=== PATIENT | female | born 1940 | race Caucasian/White ===

== ENCOUNTER 2016-06-20 10:11 | Emergency (ER) | payer OTHER ==
[~2016-06-20] VITALS: Ht 162.6 cm; Wt 79.5 kg
[~2016-06-20 10:11] MED LIST: APIX1TAB3 PO; CHOL100010 PO; DILT120C51 PO; GABA-113 PO; PRT40 PO; TMB100 PO
[2016-06-20 10:16] VITALS: TEMP 36.4; Ht 162.6 cm; Wt 79.5 kg
[2016-06-20 10:50] LABS: BASO % 0.2 %; BASO ABS # 0.02 K/uL (0-0.2); COMPLETE YES; EOS % 0.6 %; HEMATOCRIT 38.3 % (37-47); IG% 0.2 %; LYMPH % 16.7 %; LYMPH ABS # 1.39 K/uL (1.2-3.4); MEAN CELL VOLUME 96.7 fL (80-100); MEAN CORPUSCULAR HEMOGLOBIN 31.1 pg (25-34); MEAN CORPUSCULAR HGB CONC 32.1 g/dl (32-36); MONO % 10.5 %; NEUT % 71.8 %; PLATELET COUNT 266 K/uL (130-400); RED BLOOD COUNT 3.96 M/uL (4.2-5.4)
--- NOTE | 2016-06-20 11:04 | EMERGENCY ROOM VISIT NOTE ---
History First contact with patient: 10:23 Chief Complaint: WOUND INFECTION Stated Complaint: RIGHT LEG-SORE Nursing Triage Summary: Patient ambulatory with use of walker, accompanied by daughter. Patient presents with c/o redness and swelling to [facility]. History of Present Illness The patient is a 76 year old female who presents to the Emergency Room with complaints of right leg pain and swelling. The patient states that she scraped her leg one month ago. She states she saw her family doctor and was started on what she believes was Keflex. She was on the antibiotic for one week but it seemed to worsen. She was seen at [facility] yesterday. She states that they recommended she go to the emergency department. They did attempt to incise and drain the area of swelling on the anterior right lower extremity. She states that she went to the [place] emergency Department but did not want to wait and left. The patient has not had antibiotics for the last 3 days. She denies any fevers. She reports worsening redness, swelling, warmth and tenderness. She rates her discomfort a 0/10 at rest. The patient does take a look was for atrial fibrillation. She denies any pain in her chest or trouble breathing. Review of Systems A 10 system review of systems was completed with positives and pertinent negatives listed in the HPI. Past Medical/Surgical History Medical Problems: (1) Diaphragmatic Hernia (2) Diverticulosis Colon (W/O Ment Of Hemorrhage) (3) Osteoporosis Nos (4) Ovarian Cyst Nec/Nos (5) Spinal Stenosis, Lumbar Reg, W/Out Neurogenic Claudication (6) Tobacco Use Disorder Surgical Problems: (1) Hip Joint Replacement Status Family History Diabetes mellitus Heart disease Hypertension Social History Smoking Status: Never Smoker Alcohol Use: occasionally Marital Status: Housing Status: lives with family Occupation Status: retired Current/Historical Medications Scheduled Amoxicillin & Pot Clavulanate (Augmentin 875-125 mg), 1 TAB PO BID Apixaban (Eliquis), 5 MG PO BID Cholecalciferol (Vitamin D), 2,000 INTER.UNIT PO DAILY Diltiazem Hcl Coated Beads (Cardizem Cd), 120 MG PO DAILY Flecainide Acetate (Flecainide Acetate), 100 MG PO BID Gabapentin (Neurontin), 300 MG PO TID Pantoprazole (Pantoprazole Sodium), 40 MG PO BID Sulfa/Trimethoprim (Bactrim Ds 800MG/160MG), 1 TAB PO BID Allergies Coded Allergies: No Known Allergies (Unverified , 06/20/16) Physical Exam Vital Signs Date Time Temp Pulse Resp B/P Pulse Ox O2 Delivery O2 Flow Rate FiO2 06/20/16 13:05 66 16 127/72 92 06/20/16 11:33 66 16 122/65 92 Room Air 06/20/16 10:16 36.4 75 18 129/75 95 Room Air Physical Exam VITALS: Vitals are noted on the nurse's note and reviewed by myself. Vital signs stable. GENERAL: This is a 76-year-old female, in no acute distress, nondiaphoretic, well-developed well-nourished. SKIN: There is a raised, swollen, tender area to the right anterior lower extremity that measures approximately 3 cm in diameter. There is an area of granulation tissue. There is mild bleeding and serous sanguinous drainage. There is erythema to the right lower extremity that extends from the ankle to the mid tib-fib. There is marked tenderness to palpation. There is no tenting of the skin. Capillary reflex less than 2 seconds. HEAD: Normocephalic atraumatic. EARS: The external ears are normal in appearance. EYES: Pupils equal round and reactive to light and accommodation. Conjunctivae without injection, sclerae without icterus. Extraocular movements intact. NOSE: Patent, turbinates without inflammation or discharge. MOUTH: Mucous membranes moist. Tongue does not deviate. NECK: Supple without nuchal rigidity. No JVD. HEART: Regular rate and rhythm without murmurs gallops or rubs. LUNGS: Clear to auscultation bilaterally without wheezes, rales or rhonchi. No retractions or accessory muscle use. MUSCULOSKELETAL: Area of swelling, erythema, warmth and tenderness as above. There is tenderness to palpation to the calf but no palpable cord. Normal gait. Strength 5/5 throughout. NEURO: Patient was alert and oriented to person place and time. Normal sensation to light and sharp touch. No focal neurological deficits. Medical Decision & Procedures ER Provider Diagnostic Interpretation: Venous Doppler right leg RIGHT VENOUS DOPP LOWER EXT UNILAT CLINICAL HISTORY: right leg pain and swelling Right pain. Edema. TECHNIQUE: Venous Doppler COMPARISON STUDY: None FINDINGS: Normal study IMPRESSION: Normal study RIGHT TIBIA/FIBULA 2 VIEWS ROUTINE CLINICAL HISTORY: right leg pain and swelling Right pain. Edema. COMPARISON: None. DISCUSSION: Operative changes consistent with a prior open reduction internal fixation of the right ankle. Mild to moderate generalized soft tissue edema. No acute bony abnormality. IMPRESSION: Soft tissue edema. No acute bony abnormality. Laboratory Results 06/20/16 10:40 Red Blood Count 3.96, Mean Corpuscular Volume 96.7, Mean Corpuscular Hemoglobin 31.1, Mean Corpuscular Hemoglobin Concent 32.1, Mean Platelet Volume 10.0, Neutrophils (%) (Auto) 71.8, Lymphocytes (%) (Auto) 16.7, Monocytes (%) (Auto) 10.5, Eosinophils (%) (Auto) 0.6, Basophils (%) (Auto) 0.2, Neutrophils # (Auto ) 5.95, Lymphocytes # (Auto) 1.39, Monocytes # (Auto) 0.87, Eosinophils # (Auto ) 0.05, Basophils # (Auto) 0.02 06/20/16 10:40 Test 06/20/16 10:40 White Blood Count 8.30 K/uL (4.8-10.8) Red Blood Count 3.96 M/uL (4.2-5.4) Hemoglobin 12.3 g/dL (12.0-16.0) Hematocrit 38.3 % (37-47) Mean Corpuscular Volume 96.7 fL (80-100) Mean Corpuscular Hemoglobin 31.1 pg (25-34) Mean Corpuscular Hemoglobin Concent 32.1 g/dl (32-36) Platelet Count 266 K/uL (130-400) Mean Platelet Volume 10.0 fL (7.4-10.4) Neutrophils (%) (Auto) 71.8 % Lymphocytes (%) (Auto) 16.7 % Monocytes (%) (Auto) 10.5 % Eosinophils (%) (Auto) 0.6 % Basophils (%) (Auto) 0.2 % Neutrophils # (Auto) 5.95 K/uL (1.4-6.5) Lymphocytes # (Auto) 1.39 K/uL (1.2-3.4) Monocytes # (Auto) 0.87 K/uL (0.11-0.59) Eosinophils # (Auto) 0.05 K/uL (0-0.5) Basophils # (Auto) 0.02 K/uL (0-0.2) RDW Standard Deviation 52.5 fL (36.4-46.3) RDW Coefficient of Variation 14.8 % (11.5-14.5) Immature Granulocyte % (Auto) 0.2 % Immature Granulocyte # (Auto) 0.02 K/uL (0.00-0.02) Anion Gap 7.0 mmol/L (3-11) Est Creatinine Clear Calc Drug Dose 43.7 ml/min Estimated GFR () 56.1 Estimated GFR (Non- 48.4 BUN/Creatinine Ratio 12.0 (10-20) Calcium Level 9.1 mg/dl (8.5-10.1) Total Bilirubin 0.9 mg/dl (0.2-1) Aspartate Amino Transf (AST/SGOT) 11 U/L (15-37) Alanine Aminotransferase (ALT/SGPT) 17 U/L (12-78) Alkaline Phosphatase 79 U/L (45-117) Total Protein 7.3 gm/dl (6.4-8.2) Albumin 3.5 gm/dl (3.4-5.0) Globulin 3.8 gm/dl (2.5-4.0) Albumin/Globulin Ratio 0.9 (0.9-2) Medications Administered Medications (Trade) Dose Ordered Sig/Izaiah Route Start Time Stop Time Status Last Admin Dose Admin Trimethoprim/ Sulfamethoxazole (Septra Ds 800/ 160MG Tab) 1 tab NOW ONCE PO 06/20/16 12:15 06/20/16 12:16 DC 06/20/16 12:52 1 TAB ED Course The patient was seen and examined. Previous visits were reviewed. The patient does not have a fever or leukocytosis. She does not have any significant electrolyte abnormality. Ultrasound was negative for DVT X-ray does not reveal any obvious bony abnormality or obvious osteomyelitis The patient has what appears to be a hematoma to the right anterior lower extremity. There is some granulation tissue. She also has a surrounding cellulitis. I did discuss admission to the hospital for IV antibiotics for failed outpatient management. The patient states that she does not want to stay in the hospital and would like to try to be managed as an outpatient. She had only been on Keflex and did not have good MRSA coverage. The patient will be placed on Bactrim and Augmentin. She should return in 24 hours for a recheck and possible additional IV antibiotics or admission. The patient may eventually need a referral to the wound center. She should return sooner with any fevers or generalized worsening symptoms. The patient was also seen and examined by who agrees with the assessment and treatment plan. Medical Decision The differential diagnosis includes cellulitis, hematoma, DVT, abscess, osteomyelitis, among others Impression Primary Impression: Cellulitis of leg Additional Impressions: Swelling of extremity Hematoma Departure Information Dispostion Home / Self-Care Condition GOOD Prescriptions Sulfa/Trimethoprim (Bactrim Ds 800MG/160MG) Tab 1 TAB PO BID for 10 Days, #20 TAB Prov: Arline Ruiz PA-C 06/20/16 Amoxicillin & Pot Clavulanate (Augmentin 875-125 mg) 1 Tab Tab 1 TAB PO BID for 10 Days, #20 TAB Prov: Arline Ruiz PA-C 06/20/16 Referrals Kacy Nicole MD (PCP) Patient Instructions Cellulitis - [facility], ED Hematoma, [facility] Additional Instructions Bactrim and Augmentin as prescribed until finished Return in 24 hours for a recheck Keep the area clean and dry You may need to see the wound center if this is not improving Problem Qualifiers Primary Impression: Cellulitis of leg Laterality: right Qualified Codes: L03.115 - Cellulitis of right lower limb
--- NOTE | 2016-06-20 11:14 | DIAGNOSTIC IMAGING REPORT ---
RIGHT TIBIA/FIBULA 2 VIEWS ROUTINE CLINICAL HISTORY: right leg pain and swelling Right pain. Edema. COMPARISON: None. DISCUSSION: Operative changes consistent with a prior open reduction internal fixation of the right ankle. Mild to moderate generalized soft tissue edema. No acute bony abnormality. IMPRESSION: Soft tissue edema. No acute bony abnormality. Electronically signed by: Johnson Lee M.D. 06/20/2016 11:13 AM Dictated Date/Time: 06/20/2016 11:12 AM
[2016-06-20 11:20] LABS: CALCIUM 9.1 mg/dl (8.5-10.1); CREATININE 1.1 mg/dl (0.60-1.20); POTASSIUM 3.8 mmol/L (3.5-5.1)
[2016-06-20 11:22] LABS: ALB/GLOB RATIO 0.9 (0.9-2)
--- NOTE | 2016-06-20 11:35 | DIAGNOSTIC IMAGING REPORT ---
Venous Doppler right leg RIGHT VENOUS DOPP LOWER EXT UNILAT CLINICAL HISTORY: right leg pain and swelling Right pain. Edema. TECHNIQUE: Venous Doppler COMPARISON STUDY: None FINDINGS: Normal study IMPRESSION: Normal study Electronically signed by: Johnson Lee M.D. 06/20/2016 11:33 AM Dictated Date/Time: 06/20/2016 11:33 AM
[2016-06-20] MEDS ORDERED: SULFAMETHOXAZOLE/TRIMETHOPRIM DS 800/160MG TAB PO ONE (12:15)
[2016-06-20] MEDS ORDERED: AMOX875T PO (12:21)
[2016-06-20] MEDS ORDERED: SULF800T23 PO (12:21)
[2016-06-20 13:05] VITALS: BP 127/72; PULSE 66; O2SAT 92
--- NOTE | 2016-06-21 09:21 | EMERGENCY ROOM VISIT NOTE ---
ED Visit Note First contact with patient: 10:23 Physician Cask Maker Supervision Note: I interviewed and examined the patient. Discussed with Sona Ruiz PA-C and agree with findings and plan as documented in the note. Any exceptions or clarifications are listed here: None Documented By: Alysa Bangura
[2016-06-21] MEDS ORDERED: FLEC100T21 PO (09:55)
[2016-06-21] MEDS ORDERED: GABA-113 PO (09:55)
[2016-06-21] MEDS ORDERED: APIX1TAB3 PO (09:55)
[2016-06-21] MEDS ORDERED: DILT120C43 PO (09:55)
[2016-06-21] MEDS ORDERED: PANT40TA PO (09:55)
--- NOTE | 2016-06-23 13:55 | Pharmacy Progress Note ---
ED Pharmacist Culture FollowUp Date of Service: Jun 23, 2016. Patient's deep wound cx from R leg wound is growing 3 organisms. She had been seen in the ER on 06/20/16 after the patient's wound infxn worsened despite completing a course of Keflex. She was discharged from the ED w/ new Rx's for Bactrim (as Keflex did not provide MRSA coverage) + Augmentin. The wound culture results were reviewed. Ps aeruginosa is growing and neither Bactrim or Augmentin will cover this organism. Reviewed cx results w/ Dr Hernandez and decision was made to d/c both the Bactrim and Augmentin and place the patient on Levofloxacin 500mg PO Daily x 10 days. I called the patient's home ([phone]) and explained cx results to . Explained the change in abx and that the Bactrim and Augmentin should be stopped. requested Rx be phoned to [facility] Rx was phoned to [facility] [place] ([phone]) Levofloxacin 500mg PO daily x 10 days, stop Augmenting, stop Bactrim, no refills, Dr Hernandez. PATIENT: WARREN GUZMAN LOC: [facility] U # : [id number] AGE/SX: 76/F ROOM: REG : 06/20/[address]: Alysa Bangura, : 1940 BED: DIS : STATUS: DEP ER TLOC: SPEC #: [id number] MARCIE: 06/20/16 STATUS: COMP REQ #: [id number] RECD: 06/20/[address]: Arline Ruiz PA-C SOURCE: ABSCESS ENTR: 06/20/[address] [facility] [address]: Kacy Nicole MD SPDESC: Alysa Constantino M.D. ORDERED: [place] CUL/REAL COMMENTS: Has Specimen Been Obtained/Collected? Y Procedure Result Verified Site GRAM STAIN Final 06/20/16-114 RESULT MANY WBCs SEEN FEW GRAM NEGATIVE BACILLI DEEP WOUND CULTURE Final 06/23/16-0849 Organism 1 STENOTROPHOMONAS MALTOPHILIA QUANITY MANY SENS SENSITIVITY TO FOLLOW +MIXWOUND PLUS LOW COUNTS OF PROBABLE SKIN GALDINO Organism 2 PSEUDOMONAS AERUGINOSA QUANITY MODERATE SENS SENSITIVITY TO FOLLOW Organism 3 SERRATIA MARCESCENS QUANITY MODERATE SENS SENSITIVITY TO FOLLOW FAVIO. MALT0 PSEUD AERG SER EDEN M.I.C. RX M.I.C. RX M.I.C. RX --------- ------ --------- ------ --------- ------ TRIMET/SULFA <=2/38 S <=2/38 S CEFOTAXIME 16 I CEFTAZIDIME 4 S 4 S CEFTRIAXONE <=1 S CEFEPIME 8 S <=4 S IMIPENEM <=1 S <=1 S AZTREONAM 16 I GENTAMICIN <=4 S <=4 S TOBRAMYCIN <=4 S <=4 S AMIKACIN <=16 S <=16 S CIPROFLOXACIN <=1 S <=1 S LEVOFLOXACIN <=2 S <=2 S <=2 S ERTAPENEM <=1 S PIP/TAZO <=16 S <=16 S
--- NOTE | 2016-06-24 17:36 | Pharmacy Progress Note ---
ED Pharmacist Progress Note Date of Service: Jun 24, 2016. Patient called today asking why her antibiotics were changed yesterday. I explained the culture results and that the prior two antibiotics were not effective for eradication of all 3 bacteria whereas the new antibiotic ( Levofloxacin) should be effective in eradicating all three. Patient stated her leg is still swollen but states she has no fever and no chills. Advised patient that she should give the Levofloxacin 2-3 days to work before considering the new antibiotic a failure. Advised patient to seek f/u if no improvement in 2-3 days.
== END 2016-06-20 13:05 | disposition home or self-care (01) ==
LOC: C.EDB 10:14
DX: L03.115 Cellulitis of right lower limb (principal); F17.200 Nicotine dependence, unspecified, uncomplicated; M81.0 Age-related osteoporosis without current pathological fracture; Z96.649 Presence of unspecified artificial hip joint

== ENCOUNTER 2016-06-21 09:24 | Emergency (ER) | payer OTHER ==
[~2016-06-21] VITALS: Ht 162.6 cm; Wt 80.2 kg
[~2016-06-21 09:24] MED LIST changes: +AMOX875T PO; +SULF800T23 PO
[2016-06-21 09:28] VITALS: TEMP 36.7; Ht 162.6 cm; Wt 80.2 kg
--- NOTE | 2016-06-21 09:46 | EMERGENCY ROOM VISIT NOTE ---
ED Visit Note First contact with patient: 09:33 CHIEF COMPLAINT: Wound check HISTORY OF PRESENT ILLNESS: This 76-year-old female patient presents to the emergency department ambulatory for a recheck of right leg cellulitis. The patient has no had complaints. Previous care outlined has been followed without difficulty. The patient described their pain as mild, 3/10, and is located within the wound. REVIEW OF SYSTEMS: A 6 system review of systems was completed with positives and pertinent negatives listed in the HPI. ALLERGIES: No known drug allergies MEDICATIONS: Unchanged from previous PMH: Unchanged from previous visit. PHYSICAL EXAM: Vital Signs reviewed, see Nurse's notes. Patient is afebrile, vital signs stable. GENERAL: This is a 76-year-old female, awake, alert, well appearing, no acute distress SKIN: There is an area of swelling with surrounding cellulitis to the right anterior lower extremity. There is no significant purulent drainage. The erythema has receded from the outlined area. NEURO: No sensory or motor deficits noted. EMERGENCY DEPARTMENT COURSE AND DECISION MAKING: I examined the patient. The patient presented with an isolated wound as above. The patient's cellulitis has improved. She does have an area of swelling with mild fluctuance. Incision and drainage had already been attempted by [place] and there was no purulent drainage. Wound culture reveals gram- negative bacilli. Overall, the patient does seem to have improvement of the erythema compared to yesterday. She should continue the Bactrim and Augmentin. She has a follow-up appointment scheduled with her family doctor this week and should keep that appointment. She may need to see the wound center in follow-up. She should return with any worsening redness, swelling, warmth, fevers. Current/Historical Medications Scheduled Amoxicillin & Pot Clavulanate (Augmentin 875-125 mg), 1 TAB PO BID Apixaban (Eliquis), 5 MG PO BID Diltiazem Hcl Coated Beads (Cartia Xt), 1 CAP PO DAILY Flecainide (Tambocor), 100 MG PO BID Gabapentin (Neurontin), 300 MG PO TID Pantoprazole Sodium (Protonix), 40 MG PO BID Sulfa/Trimethoprim (Bactrim Ds 800MG/160MG), 1 TAB PO BID Allergies Coded Allergies: No Known Allergies (Unverified , 06/20/16) Vital Signs Date Time Temp Pulse Resp B/P Pulse Ox O2 Delivery O2 Flow Rate FiO2 06/21/16 10:44 65 20 135/79 96 06/21/16 09:28 36.7 73 18 137/74 94 Room Air Departure Information Impression Primary Impression: Encounter for wound re-check Dispostion Home / Self-Care Condition GOOD Referrals Kacy Nicole MD (PCP) Patient Instructions Cellulitis - [facility], [facility] Additional Instructions Continue the antibiotics as prescribed until finished. Follow up with your family doctor this week as scheduled. You may need to see the wound center if the wound does not heal well. Return with fevers, worsening pain, swelling or redness
[2016-06-21] MEDS ORDERED: DILT120C43 PO (09:55)
[2016-06-21] MEDS ORDERED: GABA-113 PO (09:55)
[2016-06-21] MEDS ORDERED: FLEC100T21 PO (09:55)
[2016-06-21] MEDS ORDERED: PANT40TA PO (09:55)
[2016-06-21] MEDS ORDERED: APIX1TAB3 PO (09:55)
[2016-06-21 10:44] VITALS: BP 135/79; PULSE 65; O2SAT 96
--- NOTE | 2016-06-21 15:29 | EMERGENCY ROOM VISIT NOTE ---
ED Visit Note First contact with patient: 09:33 I have personally seen and evaluated the patient with the PA. I agree with the diagnosis and management decisions and have been personally involved in the case. Please see Sona Ruiz PA-C's notes for further details of the history, physical and visit.
== END 2016-06-21 10:45 | disposition home or self-care (01) ==
LOC: C.EDB 09:25 → C.EDA 10:45
DX: L03.115 Cellulitis of right lower limb (principal); Z09 Encounter for follow-up examination after completed treatment for conditions other than malignant neoplasm; Z79.899 Other long term (current) drug therapy

== ENCOUNTER → 2017-01-06 | Outpatient (CLI) | payer OTHER ==
[~2017-01-06] MED LIST changes: -AMOX875T PO; -CHOL100010 PO; +DILT120C43 PO; -DILT120C51 PO; +FLEC100T21 PO; +PANT40TA PO; -PRT40 PO; -SULF800T23 PO; -TMB100 PO
--- NOTE | 2017-01-06 15:45 | DIAGNOSTIC IMAGING REPORT ---
CT SCAN OF THE ABDOMEN AND PELVIS WITHOUT IV CONTRAST CLINICAL HISTORY: Right lower quadrant abdominal pain. COMPARISON STUDY: Abdominal CT dated 10/14/2011. TECHNIQUE: CT scan of the abdomen and pelvis is performed from the lung bases to the proximal femora. Images are reviewed in the axial, sagittal, and coronal planes. IV contrast was not administered for this examination as per the referring clinician. Note that the examination was performed in suboptimal fashion without oral and IV contrast. A dose lowering technique was utilized adhering to the principles of ALARA. CT DOSE: 474.22 mGy.cm FINDINGS: Lung bases: The heart is normal in size and without pericardial effusion. The coronary arteries are densely calcified. The lung bases are clear noting bibasilar atelectasis. Liver: The unenhanced liver is normal in size, contour, and attenuation. There is no intrahepatic biliary ductal dilatation. Gallbladder: Unremarkable. Spleen: Normal in size and attenuation. Pancreas: The unenhanced pancreas is mildly atrophic and grossly unremarkable. Adrenal glands: 12 mm bilateral adrenal nodules meet CT for fat-containing adenomas. Kidneys: The unenhanced kidneys are atrophic and without hydronephrosis. There are no renal calculi identified. There is no evidence of contour deforming renal mass lesion. Small parapelvic cysts are suggested on the left. Abdominal vasculature: The abdominal aorta is normal in course and caliber noting moderate atherosclerotic calcification. Stomach and bowel: There is a large hiatal hernia, with the majority the stomach located in the thoracic cavity. The duodenum is normal in configuration. No bowel obstruction is seen. There is moderate sigmoid diverticulosis without CT evidence of acute diverticulitis. The appendix is well-visualized and normal. Peritoneum: There is no intraperitoneal free air or abdominal ascites. Lymphadenopathy: None. Pelvic viscera: Evaluation of the pelvis is degraded by streak artifact from a right hip arthroplasty. The bladder is decompressed and not evaluated. The uterus is surgically absent. There is a 3.8 cm cystic-appearing lesion the right adnexa seen on image #352, likely related to the right ovary. Skeletal structures: The skeletal structures are osteopenic. There is advanced lumbar spondylosis and scoliosis. A right hip arthroplasty is in place. There are healed right pubic ring fractures. Sclerotic change is noted in the sacroiliac joints. No lytic or blastic lesions are seen. IMPRESSION: 1. Suboptimal examination without oral and IV contrast. 2. There are no acute infectious or inflammatory findings in the abdomen or pelvis. 3. Large hiatal hernia. 4. Moderate sigmoid diverticulosis without CT evidence of acute diverticulitis. 5. An approximately 4 cm cystic lesion is again seen in the right adnexa. This is an abnormal finding in a 76-year-old female and appears to have modestly increased in size from 2012. This is pathologically indeterminant and follow-up with a pelvic ultrasound is recommended for further interrogation. 6. Additional findings as above. Electronically signed by: Semaj Luong M.D. 01/06/2017 3:44 PM Dictated Date/Time: 01/06/2017 3:36 PM
== END ==
LOC: C.CTS 15:23
PROVIDERS: ATTEND Physician Assistant
DX: R10.31 Right lower quadrant pain (principal); K44.9 Diaphragmatic hernia without obstruction or gangrene

== ENCOUNTER → 2017-01-13 | Outpatient (CLI) | payer OTHER ==
--- NOTE | 2017-01-13 12:34 | DIAGNOSTIC IMAGING REPORT ---
PELVIC ULTRASOUND, TRANSABDOMINAL AND TRANSVAGINAL HISTORY: Abnormal CT. R10.31 Abdominal pain, RLQ (right lower quadrant)R93.5 Abnormal COMPARISON: Abdomen and pelvis CT 01/06/2017. Pelvic ultrasound 09/22/2011. FINDINGS: Uterus: Surgically absent. Right adnexa: Confirmation of the 4.2 x 2.4 x 3.0 cm cyst. This contains a thin septation. No color-flow or soft tissue abnormality identified. This remains stable. Left adnexa: No abnormality visualized. A left ovary was not identified and may be obscured by overlying bowel. Miscellaneous:No pelvic free fluid. IMPRESSION: 1. Confirmation of the 4.2 x 2.4 x 3.0 cm cyst within the right adnexa/ovary. This is stable dating back to a 09/22/2011 pelvic ultrasound. The long-term stability favors a benign lesion. 2. Hysterectomy. 3. No abnormality within the left adnexa. Of note, a left ovary was not identified and could be obscured by overlying bowel gas. Electronically signed by: Erwin Ha M.D. 01/13/2017 12:33 PM Dictated Date/Time: 01/13/2017 12:27 PM
== END | disposition home or self-care (01) ==
LOC: C.ULTR 10:48
PROVIDERS: ATTEND Physician Assistant
DX: R10.31 Right lower quadrant pain (principal); R93.5 Abnormal findings on diagnostic imaging of other abdominal regions, including retroperitoneum; N83.201 Unspecified ovarian cyst, right side; Z90.710 Acquired absence of both cervix and uterus

== ENCOUNTER → 2017-02-17 | Outpatient (CLI) | payer OTHER ==
--- NOTE | 2017-02-17 15:21 | MAMMOGRAPHY REPORT ---
BILATERAL DIGITAL SCREENING MAMMOGRAM TOMOSYNTHESIS WITH CAD: 02/17/2017 CLINICAL HISTORY: Routine screening. TECHNIQUE: Breast tomosynthesis in addition to standard 2D mammography was performed. Current study was also evaluated with a Computer Aided Detection (CAD) system. COMPARISON: Comparison is made to exams dated: 08/21/2013 mammogram, 07/12/2012 mammogram - [facility], 07/15/2010 mammogram, and 07/12/2009 mammogram - [facility]. BREAST COMPOSITION: There are scattered areas of fibroglandular density in both breasts. FINDINGS: Stable benign calcifications in the right breast. Intramammary lymph nodes in each upper outer quadrant. Mild vascular calcification. No suspicious mass, architectural distortion or cluster of microcalcifications is seen. IMPRESSION: ACR BI-RADS CATEGORY 2: BENIGN There is no mammographic evidence of malignancy. A 1 year screening mammogram is recommended. The pa tient will receive written notification of the results. Approximately 10% of breast cancers are not detected with mammography. A negative mammographic report should not delay biopsy if a clinically suggestive mass is present. Estee Calderon M.D. ay/:02/17/2017 15:01:51 Deli Manager: Nani BARRY(Tony)([place]), [facility] letter sent: Normal 1/2 BI-RADS Code: ACR BI-RADS Category 2: Benign
== END | disposition home or self-care (01) ==
LOC: C.MAMM 14:10
PROVIDERS: ATTEND Obstetrics & Gynecology
DX: Z12.31 Encounter for screening mammogram for malignant neoplasm of breast (principal)

== ENCOUNTER → 2017-03-09 | Outpatient (CLI) | payer OTHER | END | disposition home or self-care (01) | LOC: C.LAB1850 12:45 | PROVIDERS: ATTEND Obstetrics & Gynecology | DX: N83.201 Unspecified ovarian cyst, right side (principal) ==

== ENCOUNTER → 2017-03-16 | Outpatient (CLI) | payer OTHER ==
[2017-03-16 12:05] LABS: BLOOD UREA NITROGEN 17 mg/dl (7-18); CALCIUM 8.8 mg/dl (8.5-10.1); CARBON DIOXIDE 29 mmol/L (21-32); CHLORIDE 105 mmol/L (98-107); CREATININE 0.94 mg/dl (0.60-1.20); GLUCOSE 84 mg/dl (70-99); SODIUM 139 mmol/L (136-145)
== END | disposition home or self-care (01) ==
LOC: C.LABPBG 10:13
PROVIDERS: ATTEND Physician Assistant
DX: Z01.818 Encounter for other preprocedural examination (principal)

== ENCOUNTER → 2017-04-12 | Day surgery (SDC) | payer OTHER ==
[2017-04-07 08:09] VITALS: Ht 162.6 cm; Wt 75.4 kg
--- NOTE | 2017-04-07 08:36 | PAT Medication Instructions ---
Service Date Apr 07, 2017. Current Home Medication List Apixaban (Eliquis), 5 MG PO BID Denosumab (Prolia), 1 DOSE INJ YEARLY Diltiazem Hcl Coated Beads (Cartia Xt), 1 CAP PO QAM Flecainide (Tambocor), 100 MG PO BID Gabapentin (Neurontin), 300 MG PO BID Meloxicam (Meloxicam), 1 TAB PO QAM Multivitamin (Multivitamin), 1 TAB PO QAM Ocuvite Preservision (Ocuvite Preservision), 1 TAB PO BID [Terbinafine Cream], 1 DOSE TOP UD PRN for PRN Medication Instructions For Your Scheduled Surgery Denosumab (Prolia), 1 DOSE INJ YEARLY (continue as directed); - Check with surgeon for instructions: Meloxicam (Meloxicam), 1 TAB PO QAM - Hold 2 days prior to surgery per production pattern maker instructions: Apixaban (Eliquis), 5 MG PO BID - Hold the following medications 24 hours prior to surgery: [Terbinafine Cream], 1 DOSE TOP UD PRN for PRN - Hold the following medications the morning of surgery: Multivitamin (Multivitamin), 1 TAB PO QAM Ocuvite Preservision (Ocuvite Preservision), 1 TAB PO BID - Take the following medications the morning of surgery with a sip of water: Gabapentin (Neurontin), 300 MG PO BID Diltiazem Hcl Coated Beads (Cartia Xt), 1 CAP PO QAM Flecainide (Tambocor), 100 MG PO BID - Take the following medications as scheduled the night before surgery: Ocuvite Preservision (Ocuvite Preservision), 1 TAB PO BID Gabapentin (Neurontin), 300 MG PO BID Flecainide (Tambocor), 100 MG PO BID If you have any questions please call us at [phone] or [phone] or [phone]
[2017-04-07 10:20] LABS: BASO ABS # 0.06 K/uL (0-0.2); EOS % 3.1 %; EOS ABS # 0.18 K/uL (0-0.5); HEMOGLOBIN 13.5 g/dL (12.0-16.0); IG# 0.01 K/uL (0.00-0.02); LYMPH ABS # 1.41 K/uL (1.2-3.4); MEAN CORPUSCULAR HEMOGLOBIN 33.6 pg (25-34); MEAN CORPUSCULAR HGB CONC 32.9 g/dl (32-36); MEAN PLATELET VOLUME 10.1 fL (7.4-10.4); MONO % 9.9 %; MONO ABS # 0.58 K/uL (0.11-0.59); NEUT % 61.8 %; NEUT ABS # 3.63 K/uL (1.4-6.5); PLATELET COUNT 223 K/uL (130-400); RED CELL DISTRIBUTION WIDTH CV 12.8 % (11.5-14.5); RED CELL DISTRIBUTION WIDTH SD 47.1 fL (36.4-46.3); WHITE BLOOD COUNT 5.87 K/uL (4.8-10.8)
[~2017-04-12] VITALS: Ht 162.6 cm; Wt 75.4 kg
[~2017-04-12] MED LIST changes: +ACETAMINOPHEN 325 MG TAB PO PRN; +ACETAMINOPHEN 650 MG SUPP PR PRN; +ATROPINE SULFATE 0.1 MG/ML 5ML SYR IV PRN; +BUPIVACAINE 0.5 % 5 MG/1 ML MPF 30ML VIAL ONE; +DEXAMETHASONE SOD INJ 4 MG/ML VIAL ONE; +DNSIS60 INJ; +EpHEDrine SULFATE 50MG/5ML SYR ONE; +FENTANYL CITRATE INJ 50 MCG/1 ML 2 ML VIAL IV PRN; +FENTANYL CITRATE INJ 50 MCG/1 ML 2 ML VIAL ONE; +GLYCOPYRROLATE INJ 0.2 MG/ML VIAL ONE; +IBUPROFEN 200 MG TAB PO PRN; +IBUPROFEN 600 MG TAB PO PRN; +KETOROLAC TROMETHAMINE 15 MG/ML VIAL IV. PRN; +LABETALOL HCL IV 5 MG/ML 20ML IV PRN; +LACTATED RINGER'S 1000ML 1,000 ML IV SCH; +LACTATED RINGER'S 1000ML 500 ML IV SCH; +LIDOCAINE HCL 2% 2 ML VIAL (20MG/ML) ONE; +MBC75 PO; +MULT-190 PO; +MULT-506 PO; +MoRPHine SULFATE 2 MG/ML CARP IV PRN; +NEOSTIGMINE METHYLSULFATE 5 MG/5 ML SYR ONE; +ONDANSETRON INJ 2 MG/ML 2 ML VIAL IV PRN; +ONDANSETRON INJ 2 MG/ML 2 ML VIAL ONE; +OXYC-57 PO; +OXYCODONE/ACETAMINOPHEN 5-325 TAB PO PRN; -PANT40TA PO; +PROPOFOL IV EMULSION 10 MG/ML 20 ML VIAL IV ONE; +ROCURONIUM BROMIDE 10 MG/ML 5 ML VIAL IV ONE; +TERBINAFINE TOP
[2017-04-12 07:32] VITALS: BP 147/68; PULSE 69; TEMP 36.6; O2SAT 94
--- NOTE | 2017-04-12 09:09 | History & Physical Bridge Note ---
H&P Re-Evaluation Bridge Note: I have examined the patient, reviewed the History & Physical and in the interval since the performance of the History & Physical I have noted the following changes of clinical significance: No changes noted
--- NOTE | 2017-04-12 10:19 | [facility] Post Operative Brief Note ---
Immediate Operative Summary Operative Date Apr 12, 2017. Pre-Operative Diagnosis Abdominal pain, right lower quadrant. Cyst of right ovary. Post-Operative Diagnosis Same as preoperative Procedure(s) Performed Laparascopic Bilateral Salpingo-oopherectomy Surgeon Dr. Kendra Callahan Operator Technician Surgeon(s) Dr. Derrick Wilde Estimated Blood Loss 5mL Findings right ovary enlarged solid and cystic, left tube and ovary normal appearing, no apparent right tube. Fluids (cc crystalloids) 1000cc Specimens Formalin: A. Right Adnexa B. Left Adnexa Drains none Anesthesia gett Complication(s) None Disposition Recovery Room / PACU
--- NOTE | 2017-04-12 10:23 | Discharge Instructions ---
Discharge Instructions Date of Service Apr 12, 2017. Visit Reason for Visit: Rt Lower Quadrant Abdominal Pain, Right Ovarian Cy Discharge Discharge Diagnosis / Problem: s/p removal of both ovaries and tubes Discharge Goals Goal(s): Specific goals Activity Recommendations Activity Limitations: per Instructions/Follow-up section Anesthesia . Post Anesthesia Instructions: If you have had General Anesthesia or IV Sedation: * Do not drive today. * Resume driving when surgeon permits. * Do not make important decisions or sign legal documents today. * Call surgeon for: 1. Temperature elevations greater than 101 degrees F. 2. Uncontrollable pain. 3. Excessive bleeding. 4. Persistent nausea and vomiting. 5. Medication intolerance (nausea, vomiting or rash). * For nausea and vomiting use only clear liquids such as: tea, soda, bouillon until nausea subsides, then gradually increase diet as tolerated. * If you have any concerns or questions, call your surgeon's office. If physician is unavailable and it is an emergency, call 911 or go to the nearest emergency room. . Instructions / Follow-Up Instructions / Follow-Up ACTIVITY RECOMMENDATIONS: * Rest the first 2-3 days. You should be back to your normal activity levels by day 3. * No heavy lifting for 2 weeks. * No intercourse, tampons or douching for 1-2 weeks. * You may shower the next day. * Do not drive anytime that you are taking narcotic pain medicines. RETURN TO SCHOOL/WORK: * May return to school or work after 2-3 days. DIET: Nausea may occur in the immediate post-operative period. If so, take clear liquids such as tea, bouillon, apple juice until all nausea has subsided, then resume usual diet. MEDICATIONS: Resume previous medications unless instructed otherwise by your surgeon. Ibuprofen 200mg 2-3 tablets every 4-6 hours as needed -- OR -- Aleve 2 tablets every 8-12 hours as needed for post-operative discomfort Medications are over the counter. Tylenol may be used if above medications are contraindicated or not preferred. Medication should be taken with food or milk. Do not take on an empty stomach. SPECIAL CARE INSTRUCTIONS: * Check temperature twice daily for one week. report any elevation over 101 degrees. * You may experience some vagina spotting and/or bleeding. This is normal for 1 -2 weeks and should not be heavier than a normal period. If it is unusual in amount, call your physician. * Post-operative discomfort may consist of a sore throat, a "bloated" feeling and pain in the shoulders. these are normal symptoms, which usually only last for 2-3 days. * Remove band-aids tomorrow and shower. There is no need to replace band-aids unless there is drainage or discomfort. FOLLOW UP VISIT: Call your doctor's office for a post-operative 2 week visit if not already scheduled. Diet Recommendations Recommended Home Diet: no limitations, resume previous diet Procedures Procedures Performed: Laparascopic Bilateral Salpingo-oopherectomy Pending Studies Studies pending at discharge: no Medical Emergencies . Who to Call and When: Medical Emergencies: If at any time you feel your situation is an emergency, please call 911 immediately. . Non-Emergent Contact Non-Emergency issues call your: [employer] . . "Provider Documentation" section prepared by Kendra Callahan. . [place] Drug Monitoring Program Search Results: patient reviewed within database, no issues identified
[2017-04-12 11:10] VITALS: BP 143/67; PULSE 55; TEMP 36.5; O2SAT 94
[2017-04-12 11:34] VITALS: BP 148/70; PULSE 54; O2SAT 93
--- NOTE | 2017-04-12 12:05 | Anesthesiology Progress Note ---
Anesthesia Post Op Note Date & Time Apr 12, 2017 at 12:04 Vital Signs Vital Signs Past 12 Hours Date Time Temp Pulse Resp B/P (MAP) Pulse Ox O2 Delivery O2 Flow Rate FiO2 04/12/17 11:34 54 18 148/70 93 Room Air 04/12/17 11:10 36.5 55 18 143/67 94 Nasal Cannula 2 04/12/17 10:55 55 16 127/74 96 Nasal Cannula 3 04/12/17 10:45 74 16 159/72 93 04/12/17 10:35 75 16 159/72 99 Oxymask 3 04/12/17 10:25 36.2 75 18 163/83 99 Oxymask 5 04/12/17 07:32 36.6 69 18 147/68 (94) 94 Room Air Notes Mental Status: alert / awake / arousable, participated in evaluation Pt Amnestic to Procedure: Yes Nausea / Vomiting: adequately controlled Pain: adequately controlled Airway Patency, RR, SpO2: stable & adequate BP & HR: stable & adequate Hydration State: stable & adequate Anesthetic Complications: no major complications apparent
[2017-04-12 12:22] VITALS: BP 168/81; PULSE 78; O2SAT 93
[2017-04-12 12:40] VITALS: BP 132/69; PULSE 88; O2SAT 94
--- NOTE | 2017-04-19 08:21 | OPERATIVE REPORT ---
DATE OF OPERATION: 04/12/2017 PREOPERATIVE DIAGNOSIS: Right lower quadrant abdominal pain and persistent complex cyst of the right ovary. POSTOPERATIVE DIAGNOSIS: Same. PROCEDURE: Laparoscopic bilateral salpingo-oophorectomy. SURGEON: Kendra Callahan MD. LONGWALL HEADGATE OPERATOR: Derrick Wilde MD. ANESTHESIA: General per endotracheal tube. ESTIMATED BLOOD LOSS: 5 mL. FLUIDS: 1000 mL. FINDINGS: Right ovary enlarged with solid and cystic components. Left tube and ovary, normal appearing. No apparent right tube. Uterus surgically absent. COMPLICATIONS: None. DRAINS: None. DISPOSITION: To recovery room in stable condition. DESCRIPTION OF PROCEDURE: The patient was taken to the operating room where she was identified verbally and by bracelet. She was placed in dorsal supine position where general anesthesia was induced without difficulty. Prior to the induction of general anesthesia, her legs were placed in the Yellofin stirrups to make sure that there was comfort. Her arms were carefully prepped and draped and tucked at her sides. Her chest was protected with a pad. The hot header operator was placed. The patient was prepped and draped in normal sterile fashion. Timeout was held identifying correct patient, procedure and positioning. A moistened sponge stick was placed in the vagina and a Loera catheter was placed in the bladder. Gloves were then changed. Attention was then turned to the abdomen where an infraumbilical incision was made with knife. Veress needle was placed through this and the abdomen was insufflated with carbon dioxide gas. A 10 mm optical trocar was placed through this with direct intra-abdominal placement visualized. Then in the right and left lower quadrant two 5 mm trocars were placed. The ovaries were found to be free of any adhesions of the pelvic sidewall, so decision was made to proceed with laparoscopic removal using the Harmonic scalpel. First on the right and then on the left. The infundibulopelvic ligament was identified and found to be free of the ureter from both sides and was taken down with the Harmonic scalpel. A 5 mm camera was then placed in a lower quadrant site. An EndoCatch bag was placed through the infraumbilical incision and the specimens were placed in the bag. The bag was removed through the infraumbilical incision port. The surgical field was inspected and found to be hemostatic and the procedure was thus terminated. The trocars were removed. The gas was released from the abdomen. A deep stitch of 0 Vicryl was placed in the infraumbilical incision and the skin incisions were closed with 4-0 Vicryl. The incisions were infiltrated with 0.5% Marcaine and treated with Dermabond. The sponge stick was removed from the vagina and the Loera catheter was removed. All sponge, lap and needle counts were correct x2. The patient tolerated the procedure well and was taken to recovery room in stable condition. I attest to the content of the Intraoperative Record and any orders documented therein. Any exception s are noted below.
== END | disposition home or self-care (01) ==
LOC: C.ACU 07:03
PROVIDERS: ATTEND Obstetrics & Gynecology
DX: R10.31 Right lower quadrant pain (principal); D27.0 Benign neoplasm of right ovary; I48.91 Unspecified atrial fibrillation; N18.3 Chronic kidney disease, stage 3 (moderate); Z98.890 Other specified postprocedural states; Z90.710 Acquired absence of both cervix and uterus; Z96.641 Presence of right artificial hip joint; Z79.01 Long term (current) use of anticoagulants; Z82.49 Family history of ischemic heart disease and other diseases of the circulatory system; Z83.79 Family history of other diseases of the digestive system; Z84.1 Family history of disorders of kidney and ureter; Z83.6 Family history of other diseases of the respiratory system; Z80.0 Family history of malignant neoplasm of digestive organs; Z83.3 Family history of diabetes mellitus

== ENCOUNTER → 2017-08-24 | Outpatient (CLI) | payer OTHER ==
[~2017-08-24] MED LIST changes: -ACETAMINOPHEN 325 MG TAB PO PRN; -ACETAMINOPHEN 650 MG SUPP PR PRN; -ATROPINE SULFATE 0.1 MG/ML 5ML SYR IV PRN; -BUPIVACAINE 0.5 % 5 MG/1 ML MPF 30ML VIAL ONE; -DEXAMETHASONE SOD INJ 4 MG/ML VIAL ONE; -EpHEDrine SULFATE 50MG/5ML SYR ONE; -FENTANYL CITRATE INJ 50 MCG/1 ML 2 ML VIAL IV PRN; -FENTANYL CITRATE INJ 50 MCG/1 ML 2 ML VIAL ONE; -GLYCOPYRROLATE INJ 0.2 MG/ML VIAL ONE; -IBUPROFEN 200 MG TAB PO PRN; -IBUPROFEN 600 MG TAB PO PRN; -KETOROLAC TROMETHAMINE 15 MG/ML VIAL IV. PRN; -LABETALOL HCL IV 5 MG/ML 20ML IV PRN; -LACTATED RINGER'S 1000ML 1,000 ML IV SCH; -LACTATED RINGER'S 1000ML 500 ML IV SCH; -LIDOCAINE HCL 2% 2 ML VIAL (20MG/ML) ONE; -MoRPHine SULFATE 2 MG/ML CARP IV PRN; -NEOSTIGMINE METHYLSULFATE 5 MG/5 ML SYR ONE; -ONDANSETRON INJ 2 MG/ML 2 ML VIAL IV PRN; -ONDANSETRON INJ 2 MG/ML 2 ML VIAL ONE; -OXYCODONE/ACETAMINOPHEN 5-325 TAB PO PRN; -PROPOFOL IV EMULSION 10 MG/ML 20 ML VIAL IV ONE; -ROCURONIUM BROMIDE 10 MG/ML 5 ML VIAL IV ONE
[2017-08-24 17:08] LABS: HEMATOCRIT 40.4 % (37-47); HEMOGLOBIN 13.4 g/dL (12.0-16.0); MEAN CORPUSCULAR HEMOGLOBIN 33.2 pg (25-34); MEAN CORPUSCULAR HGB CONC 33.2 g/dl (32-36); MEAN PLATELET VOLUME 10.1 fL (7.4-10.4); PLATELET COUNT 215 K/uL (130-400); RED CELL DISTRIBUTION WIDTH CV 13.3 % (11.5-14.5); RED CELL DISTRIBUTION WIDTH SD 48.4 fL (36.4-46.3); WHITE BLOOD COUNT 5.44 K/uL (4.8-10.8)
[2017-08-24 17:11] LABS: BLOOD UREA NITROGEN 18 mg/dl (7-18); CALCIUM 9.3 mg/dl (8.5-10.1); CARBON DIOXIDE 27 mmol/L (21-32); CREATININE 0.87 mg/dl (0.60-1.20); GLUCOSE 90 mg/dl (70-99); POTASSIUM 4.1 mmol/L (3.5-5.1); SODIUM 140 mmol/L (136-145)
== END | disposition home or self-care (01) ==
LOC: C.LABPBG 13:54
PROVIDERS: ATTEND Family Medicine
DX: M81.0 Age-related osteoporosis without current pathological fracture (principal); I48.91 Unspecified atrial fibrillation; N18.3 Chronic kidney disease, stage 3 (moderate)

== ENCOUNTER 2019-01-06 07:48 | Observation (INO) ==
--- NOTE | 2019-01-03 11:28 | Anesthesiology Consultation ---
Date of Service January 03, 2019 Assessment & Plan (1) Encounter for pre-operative examination: Chart Review Chart Review: Pending: Refer to Additional Notes / Consult section and Patient NOT seen in Pre Admission Testing Patient previously on schedule for July 2018 for this same procedure and unsure of why it was delayed. Cardiology at that time stated no preop cardiac testing was needed before surgery although they had an outpatient echo scheduled for August 2018 (after her initial surgery date). Could we get a copy of this most recent echo and see if she had any additional cardiology visits before determining if she is appropriately optimized for this surgery. History Surgery Operation Date: 01/06/19 07:15 Proposed Procedures p Right Thyroid Lobectomy, Possible Bilateral - Preeti Thornton MD Height/Weight Height: 5 ft 2 in Weight: 70.307 kg Allergies Allergy/AdvReac Type Severity Reaction Status Date / Time No Known Allergies Allergy Verified 01/03/19 08:45 Medications Home Medications Medication Instructions Recorded Confirmed Last Taken multivitamin 1 tab PO DAILY 06/30/18 01/03/19 Unknown vitamins A,C,L-sybo-tktmim 1 cap PO QAM 06/30/18 01/03/19 Unknown [PreserVision AREDS] denosumab 60 mg/mL subcutaneous 60 mg SUBCUT UD #1 ml 09/01/18 01/03/19 Unknown syringe diltiazem ER 120 mg capsule,24 120 mg PO QAM #30 cap 09/01/18 01/03/19 Unknown hr,extended release flecainide 100 mg tablet 100 mg PO QAM #30 tab 09/01/18 01/03/19 Unknown tramadol 50 mg tablet 50 mg PO Q6H PRN #30 tab 09/01/18 01/03/19 Unknown apixaban 5 mg tablet 5 mg PO BID #60 tab 12/29/18 01/03/19 Unknown meloxicam 7.5 mg tablet 7.5 mg PO QAM #90 tab 12/29/18 01/03/19 Unknown duloxetine 60 mg PO QAM 01/03/19 01/03/19 Unknown hydroxychloroquine 200 mg PO QAM 01/03/19 01/03/19 Unknown omeprazole 40 mg PO QAM 01/03/19 01/03/19 Unknown Past Medical History Medical History Atrial fibrillation ON ELIQUIS Scoliosis Hypertension Macular degeneration Osteoarthritis Rheumatoid arthritis ON HYDROXYCHLOROQUINE Mitral regurgitation MODERATE Depression Diaphragmatic hernia Lumbar spinal stenosis Vitamin D deficiency Osteoporosis Hearing difficulty GERD without esophagitis Essential hypertriglyceridemia Diverticulosis Disc degeneration, lumbar Cystic thyroid nodule Chronic kidney disease, stage III (moderate) Chronic back pain Anxiety Past Family History Family History Sister Colorectal cancer Father Coronary heart disease Mother Coronary heart disease Myocardial infarction Sister Diabetes Past Surgical History Surgical History H/O bilateral oophorectomy B/L SALPINGOOPHORECTOMY= 04/12/17= GRADE VIEW 2, MAC 3, ETT 7.5 AT [facility] History of adenoidectomy History of cataract surgery RIGHT/LEFT History of hysterectomy (1988) History of open reduction and internal fixation (ORIF) procedure (1993) RIGHT ANKLE History of tonsillectomy History of tooth extraction History of total hip arthroplasty RIGHT Status post arthroscopic partial medial meniscectomy (11/02/17) R knee Social History Smoking Status: Never smoker Do You Dip or Chew Tobacco: No Hx Alcohol Use: Yes Alcohol type: hard liquor alcohol intake frequency: a few times a week Alcohol Intake Frequency Comment: VODKA Hx Substance Use: No substance use type: does not use Testing Laboratory Results Labs 10/20/18: WBC 4.7, Hgb 14.3, hct 42.7, plt 225 Other Testing Testing Electrocardiogram Date: 06/30/18 SR with first degree AVB at 72bpm. Echocardiogram Date: 11/15/14 LVEF 55-60%. Thickened AV/MV. Moderate MR. Mild TR. No significant change compared to 2014 ECHO per report. Stress Test Date: 06/08/13 Type: nuclear (Lexiscan) No significant EKG changes. Normal perdusion pattern without evidence of ischemia. Nondiagnostic stress EKG. LVEF 55%. Cervical Spine Date: 01/23/18 Trace retrolisthesis of C4 on C5. Otherwise normal cervical lordosis. The C7 vertebral body is almost completely visualized except for the inferior endplate. Multilevel intervertebral disc height loss most pronounced from C3-4 through C6- 7. At these levels, disc osteophyte complexes noted. Posterior bony spurring suggested at C4-5 and C5-6. Osteopenia limits evaluation. Allowing for this, no compression deformity or acute appearing subluxation. Lateral masses of C1 articulate normally with C2. Normal appearance of the dens. Normal predental interval. No prevertebral soft tissue swelling.
--- NOTE | 2019-01-05 14:31 | History & Physical Report ---
Date of Service January 05, 2019 Assessment & Plan (1) Right thyroid nodule: Right thyroid lobectomy with frozen section and possible total thyroidectomy History of Present Illness Chief Complaint: Lump right neck Primary Care Provider: Kimber Prater DO 78-year-old lady presented with an enlarging right thyroid mass with needle biopsy being nondiagnostic with family history of thyroid cancer Allergies Allergy/AdvReac Type Severity Reaction Status Date / Time No Known Allergies Allergy Verified 01/03/19 08:45 Home Medications Home Medications Medication Instructions Recorded Confirmed Type multivitamin 1 tab PO DAILY 06/30/18 01/03/19 History vitamins A,C,W-ulie-meoyfc 1 cap PO QAM 06/30/18 01/03/19 History [PreserVision AREDS] denosumab 60 mg/mL subcutaneous 60 mg SUBCUT UD #1 ml 09/01/18 01/03/19 Rx syringe diltiazem ER 120 mg capsule,24 120 mg PO QAM #30 cap 09/01/18 01/03/19 Rx hr,extended release flecainide 100 mg tablet 100 mg PO QAM #30 tab 09/01/18 01/03/19 Rx tramadol 50 mg tablet 50 mg PO Q6H PRN #30 tab 09/01/18 01/03/19 History apixaban 5 mg tablet 5 mg PO BID #60 tab 12/29/18 01/03/19 Rx meloxicam 7.5 mg tablet 7.5 mg PO QAM #90 tab 12/29/18 01/03/19 Rx duloxetine 60 mg PO QAM 01/03/19 01/03/19 History hydroxychloroquine 200 mg PO QAM 01/03/19 01/03/19 History omeprazole 40 mg PO QAM 01/03/19 01/03/19 History Past Med/Surg History Medical History Atrial fibrillation ON ELIQUIS Scoliosis Hypertension Macular degeneration Osteoarthritis Rheumatoid arthritis ON HYDROXYCHLOROQUINE Mitral regurgitation MODERATE Depression Diaphragmatic hernia Lumbar spinal stenosis Vitamin D deficiency Osteoporosis Hearing difficulty GERD without esophagitis Essential hypertriglyceridemia Diverticulosis Disc degeneration, lumbar Cystic thyroid nodule Chronic kidney disease, stage III (moderate) Chronic back pain Anxiety Surgical History H/O bilateral oophorectomy B/L SALPINGOOPHORECTOMY= 04/12/17= GRADE VIEW 2, MAC 3, ETT 7.5 AT [facility] History of adenoidectomy History of cataract surgery RIGHT/LEFT History of hysterectomy (1988) History of open reduction and internal fixation (ORIF) procedure (1993) RIGHT ANKLE History of tonsillectomy History of tooth extraction History of total hip arthroplasty RIGHT Status post arthroscopic partial medial meniscectomy (11/02/17) R knee Family History Sister Colorectal cancer Father Coronary heart disease Mother Coronary heart disease Myocardial infarction Sister Diabetes Social History Preferred Language: Portuguese Communication Ability: Effective Precision Machining Instructor Required: No Beliefs That Will Affect Care: None marital status: / marital status details: passed August 2018 Current Living Situation: Alone current occupational status: retired current occupation: [employer] Other Information That Helps Us Care for You: No Feels Safe at Home: Yes Safety Concerns: Feels Safe At This Time Smoking Status: Never smoker Do You Dip or Chew Tobacco: No ; Second Hand Exposure: Yes (RARE EXPOSURE) ; Tobacco Cessation Education Requested by Patient: No Hx Alcohol Use: Yes Alcohol type: hard liquor Hx Substance Use: No Physical Exam Constitutional: WD/WN, vitals as above Eyes: PERRL, conjunctivae normal, anicteric sclerae ENMT: external ear and nose normal, oropharynx normal Neck: 3 cm right thyroid smooth round moderately firm nodule Respiratory: normal respiratory effort, lungs clear to auscultation Cardiovascular: RRR, no murmur, no edema
[~2019-01-06 07:48] MED LIST changes: -APIX1TAB3 PO; -DILT120C43 PO; -DNSIS60 INJ; -FLEC100T21 PO; -GABA-113 PO; +LIDOCAINE HCL 2% 2 ML VIAL/AMP(20MG/ML) INFIL ONE; +LR 15ML/HR IV SCH; -MBC75 PO; -MULT-190 PO; -MULT-506 PO; +ONDANSETRON INJ 2 MG/ML 2 ML VIAL ONE; -OXYC-57 PO; +PROPOFOL IV EMULSION 10 MG/ML 20 ML VIAL IV ONE; +ROCURONIUM BROMIDE 10 MG/ML 5 ML VIAL ONE; -TERBINAFINE TOP; +fentaNYL citrate 100 MCG/2 ML VIAL ONE
[2019-01-06] MEDS ORDERED: ePHEDrine sulfate 50 MG/ML AMP IV PRN (08:38)
[2019-01-06] MEDS ORDERED: ATROPINE SULFATE 0.1 MG/ML 10ML SYR IV PRN (08:38)
[2019-01-06] MEDS ORDERED: fentaNYL citrate 100 MCG/2 ML VIAL IV PRN (08:38)
[2019-01-06] MEDS ORDERED: ONDANSETRON INJ 2 MG/ML 2 ML VIAL IV PRN (08:38)
[2019-01-06] MEDS ORDERED: BACITRACIN OINT 15 GM TUBE ONE (10:07)
[2019-01-06] MEDS ORDERED: LIDOCAINE 2%/EPINEPHRINE 1:100,000 1.8 ML CARTRIDGE ONE (10:07)
[2019-01-06] MEDS ORDERED: LIDOCAINE/EPINE 2% 1:100,000 20ML ONE (10:08)
--- NOTE | 2019-01-06 10:12 | History & Physical Bridge Note ---
Date of Service January 06, 2019 History & Physical Bridge Note I have examined the patient, reviewed the History & Physical and in the interval since the performance of the History & Physical I have noted the following changes of clinical significance: no changes noted
[2019-01-06] MEDS ORDERED: CEFAZOLIN 1000MG 1,000 MG/7.5 ML SYR IV ONE (10:16)
[2019-01-06] MEDS ORDERED: CEFAZOLIN 1,000 MG/7.5 ML IV PUSH IV ONE (10:17)
[2019-01-06] MEDS ORDERED: fentaNYL citrate 100 MCG/2 ML VIAL ONE (11:14)
[2019-01-06] MEDS ORDERED: GLYCOPYRROLATE 0.2 MG/ML VIAL ONE (11:59)
[2019-01-06] MEDS ORDERED: NEOSTIGMINE METHYLSULFATE 5 MG/5 ML SYR ONE (11:59)
[2019-01-06] MEDS ORDERED: LACTATED RINGER'S 1,000 ML IV SCH (12:30)
--- NOTE | 2019-01-06 12:35 | Operative Report ---
Post Operative Report Pre & Post Diagnosis Operation Date: 01/06/19 09:35 Pre-Op Diagnosis: Right Thyroid Mass Post-Op Diagnosis: Follicular Adenoma Procedure Operation Date: 01/06/19 09:35 Actual Procedures p Right Thyroid Lobectomy(Right) - Preeti Thornton MD Surgeon Preeti Thornton MD Marketing Developer None Estimated Blood Loss 30 Findings Consistent with Post-Op Diagnosis Specimens Right lobe thyroid Anesthesia Type General Complications none Disposition Accompanied Patient To Recovery: Yes Disposition: Recovery Room Indications 78-year-old with 3 cm right thyroid nodule nondiagnostic on needle biopsy Description of Procedure She was brought to the operating room and properly identified. General endotracheal anesthesia was induced. She was prepped with ChloraPrep and draped in the usual sterile manner. The thyroid incision was marked, injected with 2% Xylocaine with 1-1000 strength epinephrine, and incised with #15 blade down through the skin subcutaneous and platysma layer. Midline dissection was performed after elevating superior and inferior skin flaps up to the hyoid and down to the sternal notch the strap muscles and isolating the right lobe of the thyroid. Dissection was started laterally and the middle thyroidal vein was identified clamped and divided using the harmonic scalpel. Superior dissection was performed isolating the superior thyroidal artery and vein which were clamped divided using the harmonic scalpel. Inferiorly the artery had to be isolated clamped divided and tied using 4-0 silk ties the vein was isolated and cauterized using the bipolar cautery additional fibers were then cauterized using the harmonic scalpel. The isthmus was transected using the harmonic scalpel. The suspensory ligament was isolated and transected exposing the recurrent laryngeal nerve which was identified entering into the cricothyroid membrane and preserved. 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 Incision was closed with interrupted 4-0 Vicryl's on the strap muscles, on the platysma layer, and on the subcutaneous layer. The skin was closed with interrupted 5-0 nylon sutures after placing a Tigist drain in the depth of the wound. The drain was sewn in place and a light pressure dressing was placed. She tolerated the procedure well and was taken to recovery area in satisfactory condition the right inferior parathyroid was definitively identified and preserved. I attest to the content of the Intraoperative Record and any orders documented therein. Any exceptions are noted below.
--- NOTE | 2019-01-06 12:48 | Anesthesiology Progress Note ---
Date of Service January 06, 2019 Anesthesia Post Procedure Vital Signs Vital Signs: Temp Pulse Pulse Resp BP BP Pulse Ox 01/06/19 12:40 85 16 137/69 96 01/06/19 12:30 86 18 136/64 96 01/06/19 12:23 96.8 F L 92 H 18 143/81 H 95 01/06/19 08:21 98.1 F 89 18 150/84 H 92 Pain Intensity Right Shoulder: Pain Intensity: 4 Transfer of Care Handoff Completed per policy Notes Mental Status: alert / awake / arousable and participated in evaluation Patient Amnestic to Procedure: Yes Nausea / Vomiting: adequately controlled Pain: adequately controlled Airway Patency, RR, SpO2: stable & adequate BP & HR: stable & adequate Hydration State: stable & adequate Anesthetic Complications: no major complications apparent and Pt Satisfied with anesthetic care
[2019-01-06] MEDS: OXYCODONE/ACETAMINOPHEN 5mg/325mg TAB PO PRN (20:37)
[2019-01-07] MEDS: OXYCODONE/ACETAMINOPHEN 5mg/325mg TAB PO PRN (00:29)
--- NOTE | 2019-01-07 08:19 | Discharge Summary ---
Date of Service January 07, 2019 Admission HPI Per Admitting Provider 78-year-old lady presented with an enlarging right thyroid mass with needle biopsy being nondiagnostic with family history of thyroid cancer Admission Exam Per Admitting Provider Right thyroid mass Principal Diagnosis Follicular adenoma Discharge Exam Constitutional WD/WN, vitals as above Eyes PERRL, conjunctivae normal, anicteric sclerae ENMT external ear and nose normal, oropharynx normal Neck Status post thyroid lobectomy, drain removed, suture line intact and clean. Discharge Data Allergies Allergy/AdvReac Type Severity Reaction Status Date / Time No Known Allergies Allergy Verified 01/06/19 08:16 Procedures Performed Operation Date: 01/06/19 09:35 Actual Procedures p Right Thyroid Lobectomy(Right) - Preeti Thornton MD Hospital Course (1) Right thyroid nodule: Right thyroid lobectomy was performed without complications Total Time Total Time Spent Total Time Spent (In Minutes): Out 10 hours Total Time Includes: Examination of the Patient Discharge Plan Discharge Items Patient Disposition: Home - Self-Care Reason For Visit: Right Thyroid Mass Discharge Diagnosis: Follicular adenoma Activity: Per Instructions section Lifting: Gradually increase as tolerated Bathing: No limitations Sexual Activity: When tolerated Driving/Machine Use: Resume 1 day after discharge Non-emergency contact: Primary Care Provider Call non-emergency contact if: your pain is not controlled and your temperature is above 101 Follow-up/Referrals: Kimber Prater DO [Primary Care Provider] - Diet: Regular Addtl Attending Provider Instructions: ACTIVITY: Most patients are able to return to a full-time work schedule in 1 week; however this may vary according to your job. It may take longer to return to heavy physical or other demanding work, or shorter if you are feeling well. Do NOT drive a car until you are able to turn the neck side to side, which may take 1-[address] while you are taking pain medicines. DIET: You may have temporary throat discomfort or difficulty swallowing. This is due to the surgery around your larynx (voice box) and esophagus (swallowing tube). These symptoms will gradually improve over the course of several weeks. Drink and eat foods that can be swallowed easily, e.g. juice, soup, gelatin, applesauce, scrambled eggs or mashed potatoes. You may be able to return to your usual diet in a couple of days. INCISION CARE: You may shower 24 hours after surgery but please do not swim or soak in a tub for at least 2 weeks. After you are done showering, just pat your incision dry. If it is draining clear fluid, you can cover it with a dry dressing (such as gauze). Do NOT scrub with soap or washcloth for the first 10 days. Mild swelling at the incision site will go away in 4-6 weeks. The pink line will slowly fade to white during the next 6-12 months. Use a sunscreen (SPF#30 or higher) or wear a scarf for protection if in the sun for the first 6 months to a year as the sun can darken your scar. You may begin to use a hypoallergenic moisturizing cream (no vitamin E, Mederma, or other scar creams) along the incision after 2 weeks. COMMON PROBLEMS: Numbness of the skin under the chin or above the incision is normal and should go away in a few weeks. You may feel a lump or pressure in your throat sensation when swallowing for a few days. Your incision may feel itchy while it heals. Avoid rubbing or scratching if possible. You may feel neck stiffness, tightness or a pulling feeling. Some people prefer to sleep with an extra pillow for the first few days after the surgery, this helps keep swelling around your incision to a minimum. Your voice may be hoarse or weak. Pitch or tone may change. You may have difficulty singing. This usually goes back to normal over 6 weeks to 6 months. After surgery, you may notice a change in your mood, emotional ups and downs, depression, irritability or fatigue and weakness. These changes will get better as time passes. You do not need to be at bed rest, being active is normally well tolerated within reason. CALL YOUR DOCTOR IF: For any non-urgent questions, call Dr. Gonzalez office [phone] or the nursing unit where you were a patient. Call Dr. Thornton [phone] or go to the Emergency Room if you have fever (temperature greater than 100.5), chills, lightheadedness, shortness of breath, difficulty breathing, nausea, vomiting, numbness or tingling in your fingers, hands, or mouth, muscle spasms, or if you notice signs of wound infection (redness, tenderness, or drainage from the incision). Please also call or go to the Emergency Room if you have any other urgent concerns. FOLLOW UP VISIT: Follow-up visit with Dr. Thornton. Please call to schedule if not already scheduled. Pending Studies at Discharge: Yes Studies:: Pathology Stand-Alone Forms: [facility] Medications and DC Order Prescriptions: New oxycodone-acetaminophen [Percocet] 5-325 mg tablet 1 tab PO Q6H PRN (Reason: pain) Qty: 20 RF: 0 Continued Eliquis 5 mg tablet 5 mg PO BID Qty: 60 RF: 5 meloxicam 7.5 mg tablet 7.5 mg PO QAM Qty: 90 RF: 1 tramadol 50 mg tablet 50 mg PO Q6H PRN (Reason: Pain) Qty: 30 RF: 0 Prolia 60 mg/mL syringe 60 mg SUBCUT UD Qty: 1 RF: 0 diltiazem HCl 120 mg capsule,extended release 24 hr 120 mg PO QAM Qty: 30 RF: 0 flecainide 100 mg tablet 100 mg PO QAM Qty: 30 RF: 0 multivitamin Tablet 1 tab PO DAILY RF: 0 PreserVision AREDS [id number] wfra-lh-aaua Capsule 1 cap PO QAM RF: 0 omeprazole 40 mg capsule,delayed release(DR/EC) 40 mg PO QAM RF: 0 hydroxychloroquine 200 mg tablet 200 mg PO QAM RF: 0 duloxetine 60 mg capsule,delayed release(DR/EC) 60 mg PO QAM RF: 0 Discharge Orders: Discharge Order (Routine); Ordered 01/07/19 Ordered By: Preeti Thornton Admission Data Admit Date/Time: 01/06/19 12:28 Attending Provider: Preeti Thornton Admit Provider: Preeti Thornton Primary Care Provider: Kimber Prater
[2019-01-07] MEDS ORDERED: FLECAINIDE ACETATE 100 MG TABLET PO SCH (09:00)
[2019-01-07] MEDS ORDERED: DULOXETINE HCL 60 MG CAP PO SCH (09:00)
[2019-01-07] MEDS ORDERED: PANTOprazole 40 MG TAB PO SCH (09:00)
[2019-01-07] MEDS ORDERED: dilTIAZem ER 120 MG CAPCR PO SCH (09:00)
== END 2019-01-07 12:12 | disposition home or self-care (01) ==
LOC: 3N 07:48 → ASU 07:48

== ENCOUNTER 2021-06-08 22:31 | Observation (INO) ==
--- NOTE | 2021-06-08 22:44 | Emergency Department Note ---
History of Present Illness General Chief complaint: Hip Pain Time Seen by Provider: 06/08/21 22:33 History of Present Illness Maximum Pain Intensity: 8 This 81yo on Eliquis presents to the ER complaining of fall with right hip pain Location: Right hip Quality: Throbbing Severity: Moderate Duration: Tonight Timing: Patient fell going to the kitchen Context: Patient was in pain and called EMS Modifying factors: better with rest; worse with activity Patient states she thinks she hit her head. She states her main complaint is the right hip. She had a hip replacement here. Patient denies chest pain, dyspnea, abdominal pain, numbness, tingling, localized weakness. Home Medications Medication Instructions Recorded Confirmed Type vitamins A,C,T-ryew-xwhkqg 14,320 1 cap PO QAM 06/30/18 06/09/21 History unit-226 mg-200 unit capsule (PreserVision AREDS) kahjlded-zvt-wsngh acid 0.4 1 tab PO DAILY 09/10/20 06/08/21 History mg-lycopene 300 mcg-lutein 250 mcg tablet (Centrum Silver) nystatin 100,000 unit/gram topical 1 applic TOPICAL BID #30 g 11/15/20 06/08/21 Rx cream diltiazem HCl 120 mg capsule,24 120 mg PO QAM #90 cap 11/25/20 06/08/21 Rx hr,extended release flecainide 100 mg tablet 100 mg PO Q12H #180 tab 12/25/20 06/08/21 Rx duloxetine 60 mg capsule,delayed 60 mg PO QAM #90 cap 01/21/21 06/08/21 Rx release omeprazole 40 mg capsule,delayed 40 mg PO QAM #90 cap 01/21/21 06/08/21 Rx release oxycodone 5 mg tablet (Roxicodone) 5 mg PO Q8H PRN #30 tab 05/23/21 06/09/21 Rx apixaban 5 mg tablet (Eliquis) 5 mg PO BID #60 tab 06/05/21 06/08/21 Rx acetaminophen 500 mg tablet 1,000 mg PO Q6H PRN 06/08/21 06/09/21 History (Tylenol Extra Strength) Allergies Allergy/AdvReac Type Severity Reaction Status Date / Time No Known Allergies Allergy Verified 06/09/21 00:03 Past Med/Surg History Medical History Anemia Anxiety Chronic anticoagulation Chronic kidney disease, stage III (moderate) Cystic thyroid nodule Depression Diaphragmatic hernia Diastolic dysfunction Disc degeneration, lumbar Diverticulosis GERD without esophagitis Grief Loss of spouse August 2018 Hypercholesterolemia Hypertension Lumbar spinal stenosis LVH (left ventricular hypertrophy) Macular degeneration Mitral regurgitation MODERATE Osteoarthritis Osteoporosis PAF (paroxysmal atrial fibrillation) Rheumatoid arthritis Right thyroid nodule Scoliosis Vitamin D deficiency Surgical History H/O bilateral oophorectomy B/L SALPINGOOPHORECTOMY= 04/12/17= GRADE VIEW 2, MAC 3, ETT 7.5 AT [facility] History of adenoidectomy History of cataract surgery RIGHT/LEFT History of hysterectomy (1988) History of open reduction and internal fixation (ORIF) procedure (1993) RIGHT ANKLE History of tonsillectomy History of tooth extraction History of total hip arthroplasty RIGHT Knee arthropathy w/ medial meniscus repair in 10/2017 S/P ORIF (open reduction internal fixation) fracture (~03/2021) Left Hip S/P thyroid surgery right thyroid lobectomy Dr. Thornton 01/06/19 Status post arthroscopic partial medial meniscectomy (11/02/17) R knee Family History Father Coronary heart disease Colorectal cancer Kidney disease Lung disease Mother Coronary heart disease Myocardial infarction Gallbladder disease Sister Diabetes Colorectal cancer Denies family history of Ovarian cancer Prostate cancer Breast cancer Social History Smoking Status: Never smoker Second Hand Exposure: Yes (RARE EXPOSURE); Hx Alcohol Use: Yes Alcohol type: hard liquor Alcohol Intake Frequency: 4 or More x per/Week Hx Substance Use: No Preferred Language: Japanese Communication Ability: Effective Visual Impairment: No Limitations Hearing Ability: Use of Hearing Aid Singing Telegram Performer Required: No Beliefs That Will Affect Care: None marital status: / marital status details: passed August 2018 Current Living Situation: Alone current occupational status: 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 Feels Safe at Home: Yes Childhood Exposure to Second-Hand Smoke: No Diet Comment: regular caffeine: Yes (1/2 cup a day) during the past year weight has: decreased > 10 lbs Dental Care, Regularly: Yes Physical Activity Frequency: Daily Seatbelt Use: always Sunscreen Use: No Assistive Devices: None and Walker Review of Systems A total of 10 systems reviewed and were otherwise negative Physical Exam Vital Signs Vital Signs - 24 hr 06/08/21 22:19 06/08/21 22:58 06/09/21 00:58 Temperature 36.7 C Temperature Source Oral Pulse Rate 96 H Pulse Rate [Finger] 93 H 106 H Respiratory Rate 20 18 18 Respiratory Effort / Characteristics Non-Labored Spontaneous Respiratory Depth Normal Blood Pressure 133/74 Blood Pressure [Right Arm] 104/58 L Blood Pressure Mean 93 Blood Pressure Mean [Right Arm] 73 Pulse Oximetry 93 99 94 Oxygen Delivery Method Room Air Sepsis Recent Fever Within 48 Hours No Sepsis New/Unexplained Change in Mental Status No Sepsis Action Taken by Nursing No Action Required PHYSICAL EXAM: VITALS: Vitals are noted on the nurse's note and reviewed by myself. Vital signs stable. GENERAL: Pleasant female who appears in pain, in no acute distress, nondiaphoretic, well-developed well-nourished. SKIN: The skin was without obvious lacerations or abrasions. Capillary reflex less than 2 seconds. HEAD: Normocephalic atraumatic. EARS: External auditory canals clear, EYES: Pupils equal round and reactive to light and accommodation. Conjunctivae without injection, sclerae without icterus. Extraocular movements intact. NOSE: Patent, turbinates without inflammation or discharge. No sinus tenderness. No septal hematoma or bleeding. MOUTH: Mucous membranes moist. Pharynx without erythema or exudate. Uvula midline. Airway patent. Tongue does not deviate. NECK: Supple without nuchal rigidity. Cervical spine is nontender. Full range of motion of the neck without tenderness. No JVD. HEART: Regular rate and rhythm . LUNGS: Clear to auscultation bilaterally without wheezes, rales or rhonchi. No dullness to percussion. No retractions or accessory muscle use. No chest wall tenderness. ABDOMEN: Positive bowel sounds x 4. Normal tympanic percussion. Soft, nontender, without masses or organomegaly. No guarding or rebound tenderness. MUSCULOSKELETAL: No tenderness of the thoracic or lumbar spine. Right proximal femur tender to palpation easily reproducing symptoms. No tenderness with pelvic rocking. Full range of motion without tenderness to palpation in all other extremities. Peripheral pulses 2+. NEURO: Patient was alert and oriented to person place and time. Normal sensation to light and sharp touch. No focal neurological deficits. Course Administered Medications Magnesium Sulfate/Dextrose (Magnesium Sulfate / D5w) 1 gm in 100 mls @ 50 mls/hr IV Q2H STA Stop: 06/09/21 04:15 Last Admin: 06/09/21 02:31 Dose: 50 mls/hr Documented by: [id number] Oxycodone HCl (Oxycodone Hcl Ir 5 Mg Tab (Immediate Release)) 5 mg PO Q8H PRN PRN Reason: pain Stop: 06/23/21 01:56 Last Admin: 06/09/21 02:08 Dose: 5 mg Documented by: [id number] Discontinued Medications Acetaminophen (Ofirmev) 1,000 mg in 100 mls @ 400 mls/hr IV NOW STA Stop: 06/09/21 01:15 Last Infusion: 06/09/21 02:04 Dose: 0 mls/hr Documented by: [id number] Admin: 06/09/21 01:41 Dose: 400 mls/hr Documented by: [id number] Medical Decision Making Medical Records Attestation: I reviewed the patient's medical records. Home Medications Current Medication List: was personally reviewed by me Laboratory Data Result diagrams: 06/09/21 01:35 06/09/21 01:35 Lab Results 06/09/21 06/09/21 06/09/21 Range/Units 01:30 01:35 01:35 WBC 9.84 (4.8-10.8) K/uL RBC 3.45 L (4.2-5.4) M/uL Hgb 11.9 L (12.0-16.0) g/dL Hct 36.3 L (37-47) % MCV 105.2 H (80-100) fL MCH 34.5 H (25-34) pg MCHC 32.8 (32-36) g/dL RDW Std Deviation 54.6 H (36.4-46.3) fL RDW Coeff of Tyra 14.3 (11.5-14.5) % Plt Count 278 (130-400) K/uL MPV 9.1 (7.4-10.4) fL Immature Gran % (Auto) 0.2 % Neut % (Auto) 70.8 % Lymph % (Auto) 17.5 % [place] % (Auto) 11.0 % Eos % (Auto) 0.2 % Baso % (Auto) 0.3 % Neut # (Auto) 6.97 H (1.4-6.5) K/uL Lymph # (Auto) 1.72 (1.2-3.4) K/uL [place] # (Auto) 1.08 H (0.11-0.59) K/uL Eos # (Auto) 0.02 (0-0.5) K/uL Baso # (Auto) 0.03 (0-0.2) K/uL Immature Gran # (Auto) 0.02 (0.00-0.02) K/uL PT 12.2 H (9.0-12.0) Seconds INR 1.2 H (0.9-1.1) APTT 31.5 H (21.0-31.0) Seconds PTT Ratio 1.1 Sodium (136-145) mmol/L Potassium (3.5-5.1) mmol/L Chloride (98-107) mmol/L Carbon Dioxide (21-32) mmol/L Anion Gap (3-11) BUN (6-23) mg/dl Creatinine (0.6-1.2) mg/dl Est Cr Clr Drug Dosing ml/min Est GFR ( Amer) ml/min Est GFR (Non-Af Amer) ml/min BUN/Creatinine Ratio (10-20) Glucose (70-99(Fasting)) mg/dl Calcium (8.5-10.1) mg/dl Magnesium (1.7-2.4) mg/dl Total Bilirubin (0.2-1.0) mg/dl AST (13-39) U/L ALT (7-52) U/L Alkaline Phosphatase (34-104) U/L Total Protein (6.0-8.3) gm/dl Albumin (3.4-5.0) gm/dl Globulin (2.5-4.0) gm/dl Albumin/Globulin Ratio (0.9-2) SARS-CoV-2, RNA, NAAT NEGATIVE (NEGATIVE) 06/09/21 Range/Units 01:35 WBC (4.8-10.8) K/uL RBC (4.2-5.4) M/uL Hgb (12.0-16.0) g/dL Hct (37-47) % MCV (80-100) fL MCH (25-34) pg MCHC (32-36) g/dL RDW Std Deviation (36.4-46.3) fL RDW Coeff of Tyra (11.5-14.5) % Plt Count (130-400) K/uL MPV (7.4-10.4) fL Immature Gran % (Auto) % Neut % (Auto) % Lymph % (Auto) % [place] % (Auto) % Eos % (Auto) % Baso % (Auto) % Neut # (Auto) (1.4-6.5) K/uL Lymph # (Auto) (1.2-3.4) K/uL [place] # (Auto) (0.11-0.59) K/uL Eos # (Auto) (0-0.5) K/uL Baso # (Auto) (0-0.2) K/uL Immature Gran # (Auto) (0.00-0.02) K/uL PT (9.0-12.0) Seconds INR (0.9-1.1) APTT (21.0-31.0) Seconds PTT Ratio Sodium 134 L (136-145) mmol/L Potassium 3.6 (3.5-5.1) mmol/L Chloride 97 L (98-107) mmol/L Carbon Dioxide 27 (21-32) mmol/L Anion Gap 10 (3-11) BUN 12 (6-23) mg/dl Creatinine 0.75 (0.6-1.2) mg/dl Est Cr Clr Drug Dosing 51.9 ml/min Est GFR ( Amer) 86.0 ml/min Est GFR (Non-Af Amer) 74.2 ml/min BUN/Creatinine Ratio 16.0 (10-20) Glucose 92 (70-99(Fasting)) mg/dl Calcium 8.1 L (8.5-10.1) mg/dl Magnesium 1.2 L (1.7-2.4) mg/dl Total Bilirubin 0.6 (0.2-1.0) mg/dl AST 17 (13-39) U/L ALT 10 (7-52) U/L Alkaline Phosphatase 131 H (34-104) U/L Total Protein 5.5 L (6.0-8.3) gm/dl Albumin 3.0 L (3.4-5.0) gm/dl Globulin 2.5 (2.5-4.0) gm/dl Albumin/Globulin Ratio 1.2 (0.9-2) SARS-CoV-2, RNA, NAAT (NEGATIVE) Imaging Data Attestation: I personally reviewed and interpreted this imaging study as follows: Head Trauma GCS Score: 15 MDM Narrative Prior records/ancillary studies reviewed. Triage Nursing notes reviewed. Additional history obtained from nursing. The patient's history was concerning for traumatic head injury Differential diagnosis: Etiologies such as concussion, contusion, fracture, subdural hematoma, epidural hematoma, intraparenchymal hemorrhage, as well as other traumatic pathologies were entertained. Physical examination findings: As above. ER treatment provided: Patient was observed On reassessment the patient felt better. Diagnostics interpreted by me: EKG: Ordered for admission EKG: Poor baseline, normal sinus, normal intervals, no acute ST-T wave changes, rate of 109. Impression sinus tachycardia interpreted by myself I think arrhythmia is unlikely. EKG shows normal sinus rhythm with no interval abnormalities such as QT prolongation or WPW. There are no findings to suggest Brugada syndrome. Cardiac monitoring in the emergency department reveals no tachycardic or bradycardic dysrhythmia. Hypertrophic cardiomyopathy was considered but there are no clear historical elements pointing toward this. EKG is not suggestive. The QRS voltage is not extremely large and there are no suggestive Q waves. labs: Mild anemia Negative COVID Imaging studies: CT C SPINE: Moderate narrowing and osteophytosis of the atlantodental joint. The odontoid process is intact. Moderate multilevel degenerative disc disease and moderate to severe multilevel degenerative facet arthrosis throughout the cervical spine. No acute fracture or traumatic subluxation is seen. There is 2 mm retrolisthesis of C3 on C4 and 2 mm retrolisthesis of C4 on C5 due to degenerative facet arthrosis. No significant spinal stenosis is identified. There is severe left neural foraminal narrowing at C6-7 and C7-T1. Radiologist: Ivan Mack MD CT HEAD: Comparison to September 10, 2020. Mild to moderate patchy periventricular and deep white matter low density throughout the cerebrum consistent with chronic small vessel disease and/or senescent changes, unchanged. There is no evidence of acute large vessel infarct or intracranial hemorrhage. No skull fracture or scalp hematoma is seen. The paranasal sinuses and mastoid air cells are normal. Radiologist: Ivan Mack MD Preliminary Findings Only See Final Report For Complete Findings CT RIGHT HIP: There is a 6 cm or more hyperdense fluid collection along the anterior aspect of the mid femur within the rectus femoris consistent with hematoma. There is a right hip arthroplasty in standard position and alignment. There is an acute appearing oblique fracture through the greater trochanter displaced 1 mm. This is best appreciated on the coronal reformatted images. Old healed fracture of the right pubic rami. The visualized portion of the right iliac bone is unremarkable. Mild diffuse arterial calcification is incidentally noted as well as diverticulosis of the sigmoid colon. No acute process is seen within the visualized portion of the pelvis. Radiologist: Ivan Mack MD Head injury evaluation: GCS <15 two hours after injury: 0 Suspected open or depressed skull fracture: 0 Any sign of basilar skull fracture: hemotympanum, raccoon eyes (intraorbital bruising), Pope sign (retroauricular bruising), or cerebrospinal fluid leak, momo- or rhinorrhea: 0 Two or more episodes of vomitin Sixty-five years of age or older: + Amnesia for events occurring more than 30 minutes prior to impact: 0 Dangerous mechanism (pedestrian struck by motor vehicle, occupant ejected from motor vehicle, fall from =3 feet or =5 stairs): 0 Neurologic deficit: 0 Seizure: 0 Presence of bleeding diathesis or oral anticoagulant use: + Return visit for reassessment of a head injury: 0 Total:(any yes, then CT)+ Consultation: A consultation was placed with Ortho, Dr. Paiz and recommends walker and not weightbearing with outpatient follow-up. Patient was unable to ambulate so medicine was consulted for admission. The hospitalist was consulted and requests labs/EKG. This was ordered. The case was discussed and diagnostics were reviewed. The patient was evaluated in the ER for further treatment. It appears the patient has a hip fracture to a prosthetic hip. Patient lives alone and cannot tolerate the pain. Medicine was consulted. She will be evaluated for admission. By the evaluation outlined above emergent etiologies such as subdural hematoma, epidural hematoma, intraparenchymal hemorrhage, as well as others were deemed relatively unlikely. The pt informed about the findings as listed above. All questions were answered and pleased with the treatment. The chart was completed utilizing [employer] Speech voice recognition software. Grammatical errors, random word insertions, pronoun errors, and incomplete sentences are an occassional consequence of this system due to software limitations, ambient noise, and hardware issues. Any formal questions or concerns about the content, text, or information contained within the body of this dictation should be directly addressed to the physician assistant terminal manager for clarification. Impression & Plan Closed hip fracture Discharge Plan Visit Data Chief Complaint: Hip Pain ED Provider: Johnson Shin ED Midlevel Provider: Neida Palomino Discharge Problem: Closed hip fracture Patient Disposition: Being Evaluated by Hospitalist Condition: Fair Forms Stand Alone Forms: [facility] [employer] Prescriptions Prescriptions: No Action diltiazem HCl 120 mg capsule,extended release 24 hr 120 mg PO QAM Qty: 90 RF: 1 flecainide 100 mg tablet 100 mg PO Q12H Qty: 180 RF: 1 duloxetine 60 mg capsule,delayed release(DR/EC) 60 mg PO QAM Qty: 90 RF: 1 omeprazole 40 mg capsule,delayed release(DR/EC) 40 mg PO QAM Qty: 90 RF: 1 nystatin 100,000 unit/gram cream 1 applic topical BID Qty: 30 RF: 0 Centrum Silver 0.4-300-250 mg-mcg-mcg tablet 1 tab PO DAILY RF: 0 oxycodone [Roxicodone] 5 mg tablet 5 mg PO Q8H PRN (Reason: pain) Qty: 30 RF: 0 Eliquis 5 mg tablet 5 mg PO BID Qty: 60 RF: 5 Hold Instructions: Home Medication placed on hold at Doctor's office PreserVision AREDS [id number] Capsule 1 cap PO QAM RF: 0 acetaminophen [Tylenol Extra Strength] 500 mg Tablet 1,000 mg PO Q6H PRN (Reason: Pain) RF: 0 Referrals Referrals: Kimber Prater DO [Primary Care Provider] - Discharge Problem: Closed hip fracture Qualifiers: Encounter type: initial encounter Laterality: right Qualified Code(s): S72.001A - Fracture of unspecified part of neck of right femur, initial encounter for closed fracture
[2021-06-09] MEDS ORDERED: ACETAMINOPHEN 1,000 MG/100 ML VIAL IV STA (01:01)
--- NOTE | 2021-06-09 01:24 | History & Physical Report ---
Date of Service June 09, 2021 Assessment & Plan (1) Closed hip fracture: Plan: Moni Carvajal is an 81yo female with PMHx significant for paroxysmal atrial fibrillation (on Eliquis, Flecainide and Diltiazem), h/o left hip fracture s/p ORIF in 03/2021, h/o right hip replacement, osteoporosis, vitamin D deficiency, HTN, hypercholesterolemia, GERD and depression who presented to [facility] ED on 06/09 after fall at home - found to have right hip fracture. Closed/Mildly Displaced Right Hip Fracture Mildly displaced, closed oblique fracture of right greater trochanter, per CT right hip. Suspect repeat fractures due to falls in an old/frail/osteoporotic woman. - Orthopedic surgery contacted in the ED - no plan for surgical management - s/p Tylenol 1g IV in ED - will continue with graduated pain regimen: Tylenol/Oxycodone/Dilaudid - PT/OT - patient would benefit from initiation of bisphosphonates - defer to primary team/PCP - trend CBC daily Sinus Tachycardia HR 100s. Suspect 2/2 to hip pain. Patient denies chest pain or SOB. - trend Ambulatory Dysfunction; Generalized Weakness With increased frequency in falls at home over the last several months. Patient lives alone and is high fall risk. - PT/OT consulted as stated above - patient will likely require acute rehab vs SNF before returning home, and may benefit from discussion about LTC facility Paroxysmal Atrial Fibrillation CHADS-VASc score of 4, but reportedly has not been in a-fib for "years". - given current sizeable R rectus femoris hematoma, will hold home Eliquis for now, pending repeat H/H and stability of hematoma - continue home Diltiazem and Flecainide Hyponatremia Na 134, ~at chronic baseline. Suspect chronic hypotonic hypovolemic hyponatremia 2/2 dehydration. - ordered LR @80cc/hr x1L Hypomagnesemia - Mg 1.2 - repleting GERD - Protonix per hospital formulary FEN/GI: regular diet, LR @100cc/hr DVT Prophylaxis: Lovenox 40mg SQ Q24H Code Status: full code Disposition: med/tele, PT/OT to assist with safe disposition plan (2) PAF (paroxysmal atrial fibrillation): (3) Osteoporosis: (4) Hypertension: (5) Hypercholesterolemia: (6) GERD without esophagitis: (7) Disc degeneration, lumbar: (8) Depression: (9) Anxiety: (10) Vitamin D deficiency: History of Present Illness Chief Complaint: hip pain Primary Care Provider: DO Smitha Perdomokendra Carvajal is an 81yo female with PMHx significant for paroxysmal atrial fibrillation (on Eliquis, Flecainide and Diltiazem), h/o left hip fracture s/p ORIF in 03/2021, h/o right hip replacement, osteoporosis, vitamin D deficiency, HTN, hypercholesterolemia, GERD and depression who presented to [facility] ED on 06/09 after fall, with impact to head and right hip and without LOC. Patient reports that she was ambulating around her home in the evening, when she usually feels weaker. Reports that legs "just buckled under" her and she fell. This does happen on occasion. Denies recent respiratory/GI/urinary symptoms. Denies fever/chills. Denies weight loss, decreased appetite or decreased fluid intake. Usually drinks 6-8 cups of water per day. Does report occasional falls at home, with several falls in the last several months. Walker-dependent at home and often transitions to wheelchair in the evenings to avoid falls. Proficient in all ADLs and is also able to clean/cook/do laundry at home. Has help with groceries. Lives in a one-story home with ramp up to front door. In the ED the patient tachycardic to 106 but otherwise afebrile and VS stable/WNL. No labs were drawn. CT head and CT c-spine were without acute abnormalities. CT right hip showed >6cm hematoma along anterior aspect of mid femur, within rectus femoris. Also showed oblique fracture through right greater trochanter that is displaced 1mm. Also with old healed fracture of right pubic ramus. Orthopedic surgery was contacted by ED provider, without plan for surgical intervention. Patient was given Tylenol 1g IV x1 for pain. Allergies Allergy/AdvReac Type Severity Reaction Status Date / Time No Known Allergies Allergy Verified 06/09/21 00:03 Home Medications Medication Instructions Recorded Confirmed Type vitamins A,C,E-cpos-trlnjj 14,320 1 cap PO QAM 06/30/18 06/09/21 History unit-226 mg-200 unit capsule (PreserVision AREDS) ancedtmt-vus-vmumw acid 0.4 1 tab PO DAILY 09/10/20 06/08/21 History mg-lycopene 300 mcg-lutein 250 mcg tablet (Centrum Silver) nystatin 100,000 unit/gram topical 1 applic TOPICAL BID #30 g 11/15/20 06/08/21 Rx cream diltiazem HCl 120 mg capsule,24 120 mg PO QAM #90 cap 11/25/20 06/08/21 Rx hr,extended release flecainide 100 mg tablet 100 mg PO Q12H #180 tab 12/25/20 06/08/21 Rx duloxetine 60 mg capsule,delayed 60 mg PO QAM #90 cap 01/21/21 06/08/21 Rx release omeprazole 40 mg capsule,delayed 40 mg PO QAM #90 cap 01/21/21 06/08/21 Rx release oxycodone 5 mg tablet (Roxicodone) 5 mg PO Q8H PRN #30 tab 05/23/21 06/09/21 Rx acetaminophen 500 mg tablet 1,000 mg PO Q6H PRN 06/08/21 06/09/21 History (Tylenol Extra Strength) Past Med/Surg History Medical History Anemia Anxiety Chronic anticoagulation Chronic kidney disease, stage III (moderate) Cystic thyroid nodule Depression Diaphragmatic hernia Diastolic dysfunction Disc degeneration, lumbar Diverticulosis GERD without esophagitis Grief Loss of spouse August 2018 Hypercholesterolemia Hypertension Lumbar spinal stenosis LVH (left ventricular hypertrophy) Macular degeneration Mitral regurgitation MODERATE Osteoarthritis Osteoporosis PAF (paroxysmal atrial fibrillation) Rheumatoid arthritis Right thyroid nodule Scoliosis Vitamin D deficiency Surgical History H/O bilateral oophorectomy B/L SALPINGOOPHORECTOMY= 04/12/17= GRADE VIEW 2, MAC 3, ETT 7.5 AT [facility] History of adenoidectomy History of cataract surgery RIGHT/LEFT History of hysterectomy (1988) History of open reduction and internal fixation (ORIF) procedure (1993) RIGHT ANKLE History of tonsillectomy History of tooth extraction History of total hip arthroplasty RIGHT Knee arthropathy w/ medial meniscus repair in 10/2017 S/P ORIF (open reduction internal fixation) fracture (~03/2021) Left Hip S/P thyroid surgery right thyroid lobectomy Dr. Thornton 01/06/19 Status post arthroscopic partial medial meniscectomy (11/02/17) R knee Family History Father Coronary heart disease Colorectal cancer Kidney disease Lung disease Mother Coronary heart disease Myocardial infarction Gallbladder disease Sister Diabetes Colorectal cancer Denies family history of Ovarian cancer Prostate cancer Breast cancer Social History Smoking Status: Never smoker Second Hand Exposure: Yes (RARE EXPOSURE); Hx Alcohol Use: Yes Alcohol type: hard liquor Alcohol Intake Frequency: 4 or More x per/Week Hx Substance Use: No Preferred Language: Estonian Communication Ability: Effective Visual Impairment: No Limitations Hearing Ability: Use of Hearing Aid Resolution Specialist Required: No Beliefs That Will Affect Care: None marital status: / marital status details: passed August 2018 Current Living Situation: Alone Current Living Situation Comment: alone current occupational status: retired 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 NAD. Cooperative. HEENT: Atraumatic, normocephalic. Pulm: CTAB A&P. -wheezes, -rales, -rhonchi. Symmetrical chest rise. No increase work of breathing. No respiratory distress. Cardiac: RRR, -mrg. Radial pulses intact and symmetrical. Abdominal: soft, non-tender, non-distended, BS x 4 Right hip: mild tenderness to palpation of right anterior hip joint Skin: warm, dry, no rash Results & Data Results & Data ([facility]) Vital Signs (Past 12 Hours) Vital Signs Temp Pulse Pulse Resp BP BP Pulse Ox 06/09/21 00:58 106 H 18 104/58 L 94 06/08/21 22:58 93 H 18 99 06/08/21 22:19 36.7 C 96 H 20 133/74 93 Supervising Physician Co-Signing Physician Notes Attending addendum: I have physically seen this patient, have supervised the medical residents activities, and agree with the H&P unless as otherwise noted. Assessment and Plan: Closed right hip fracture- Consult orthopedic surgery, but report after contact from ED is no planned surgical treatment Pain control as noted Consult PT/OT Assess for possible rehab Remaining orders and notations as noted Resident Activity Tracking Resident Involvement: Resident Care Provided Care Provided: Adult Hospital Medicine (1) Closed hip fracture Encounter type: initial encounter Laterality: right Qualified Code(s): S72.001A - Fracture of unspecified part of neck of right femur, initial encounter for closed fracture
[2021-06-09 01:44] LABS: Basophils # (auto) 0.03 K/uL (0-0.2); Basophils % (auto) 0.3 %; Eosinophils # (auto) 0.02 K/uL (0-0.5); Eosinophils % (auto) 0.2 %; Hematocrit (blood only) 36.3 % (37-47); Hemoglobin 11.9 g/dL (12.0-16.0); Immature Granulocytes # (auto) 0.02 K/uL (0.00-0.02); Immature Granulocytes % (auto) 0.2 %; Lymphocytes # (auto) 1.72 K/uL (1.2-3.4); Lymphocytes % (auto) 17.5 %; Mean Corpuscular Hemoglobin 34.5 pg (25-34); Mean Corpuscular Hgb Conc 32.8 g/dL (32-36); Mean Corpuscular Volume 105.2 fL (80-100); Mean Platelet Volume 9.1 fL (7.4-10.4); Monocytes # (auto) 1.08 K/uL (0.11-0.59); Neutrophils # (auto) 6.97 K/uL (1.4-6.5); Neutrophils % (auto) 70.8 %; Platelet Count 278 K/uL (130-400); RDW Coefficient of Variation 14.3 % (11.5-14.5); RDW Standard Deviation 54.6 fL (36.4-46.3); Red Blood Count 3.45 M/uL (4.2-5.4); White Blood Count 9.84 K/uL (4.8-10.8)
[2021-06-09] MEDS ORDERED: ACETAMINOPHEN 500 MG TAB PO PRN (01:57)
[2021-06-09 01:58] LABS: INR 1.2 (0.9-1.1); Partial Thromboplastin Ratio 1.1; Partial Thromboplastin Time 31.5 Seconds (21.0-31.0); Prothrombin Time 12.2 Seconds (9.0-12.0)
[2021-06-09] MEDS ORDERED: HYDROmorphone INJ 0.5 MG/0.5 ML SYR IV PRN (02:07)
[2021-06-09] MEDS: oxyCODONE HCL IR 5 MG TAB (IMMEDIATE RELEASE) PO PRN ×3 (02:08→18:36)
[2021-06-09 02:09] LABS: Albumin Globulin Ratio 1.2 (0.9-2); Bilirubin,Total 0.6 mg/dl (0.2-1.0); Calcium 8.1 mg/dl (8.5-10.1); Creatinine Clr Calc Pharmacy 51.9 ml/min; Est GFR (Non-African American) 74.2 ml/min; Globulin 2.5 gm/dl (2.5-4.0); Magnesium 1.2 mg/dl (1.7-2.4); Potassium 3.6 mmol/L (3.5-5.1); Total Protein 5.5 gm/dl (6.0-8.3)
[2021-06-09] MEDS ORDERED: LACTATED RINGER'S 1,000 ML IV SCH (02:15)
[2021-06-09] MEDS ORDERED: MAGNESIUM SULFATE / D5W 1 GM/100 ML BAG IV STA (02:16)
--- NOTE | 2021-06-09 07:14 | CT Scan Report ---
CT head/brain wo con CLINICAL HISTORY: fall, hit head Technique: Contiguous axial CT images of the head were acquired from the base of the skull to the leonardo primo without intravenous contrast administration. Images were viewed in brain, subdural and bone windo ws. Automated dose lowering techniques and/or adjustment according to patient size were utilized for this exam. Comparison: Comparison is made to CT head 05/27/2021 Findings: Areas of decreased attenuation are present in the periventricular and subcortical white matter bilate rally consistent with small vessel ischemic disease. There is no acute intracranial hemorrhage or jay dence of acute territorial infarction. No shift of the midline structures, mass effect, or extra-axia l abnormalities are shown. Atherosclerotic calcifications are present in the intracranial segments o f the internal carotid arteries. Imaged portions of the paranasal sinuses and mastoid air cells are clear. The orbits appear normal. There are no acute fractures of the calvaria or scalp swelling. Impression: No acute intracranial hemorrhage, no evidence of acute territorial infarction or other acute intracra nial disease process. ACT 112: Negative or not required by law. Electronically signed by: Rylan Santacruz M.D. 06/09/2021 7:12 AM
--- NOTE | 2021-06-09 07:22 | CT Scan Report ---
CERVICAL SPINE CT CT DOSE: 901.02 mGy.cm HISTORY: Neck pain. fall, hit head TECHNIQUE: Multiaxial CT images of the cervical spine were performed and reformatted in the sagittal and coronal plane without the use of contrast. A dose lowering technique was utilized adhering to e principles of ALARA. COMPARISON: None. FINDINGS: No fractures. Prevertebral soft tissues and the C1-C2 interval are intact. No pneumothorax. There is 2 mm of anterolisthesis of C3 on C4 and 2 mm of retrolisthesis of C4 on C5. There are sever e disc space narrowing from C3 through C7. There are old, healed bilateral rib fractures. IMPRESSION: No fractures within the cervical spine. ACT 112: Negative or not required by law. Electronically signed by: Erwin Ha M.D. 06/09/2021 7:21 AM
--- NOTE | 2021-06-09 07:34 | XRay Report ---
XR hip RT 2V w pelvis CLINICAL HISTORY: Fall. Right hip pain. COMPARISON STUDY: Pelvis 05/27/2021. FINDINGS: Nondisplaced fracture within the greater trochanter of the proximal right femur. There is a right total hip arthroplasty and internal fixation of an old, healed left hip fracture. The hardware appears intact. Old, healed right pubic ring fractures are again noted. Mild vascular calcifications are present. IMPRESSION: 1. Nondisplaced fracture within the greater trochanter of the right femur. 2. Old posttraumatic and postoperative changes as described above. ACT 112: Negative or not required by law. Electronically signed by: Erwin Ha M.D. 06/09/2021 7:33 AM
--- NOTE | 2021-06-09 08:25 | CT Scan Report ---
CT hip RT wo con CLINICAL HISTORY: fall, severe pain, ? fx TECHNIQUE: Multidetector row helical CT of the right hip was performed without intravenous contrast. Coronal and sagittal reformations were obtained. Automated dose lowering techniques and/or adjustment according to patient size were utilized for this examination. Comparison: Comparison is made to right hip radiographs 01/13/2091 FINDINGS: Comminuted fracture is seen about the femoral component of the hip arthroplasty surrounding the great er trochanter. Total hip arthroplasty is again seen. No joint effusion is seen. Hematoma is seen in the femoral musculature. IMPRESSION: Comminuted fracture about the femoral component of the hip prosthesis. ACT 112: Negative or not required by law. Electronically signed by: Rylan Santacruz M.D. 06/09/2021 8:24 AM
[2021-06-09] MEDS: dilTIAZem ER 120 MG CAPCR PO SCH (08:29)
[2021-06-09] MEDS: FLECAINIDE ACETATE 100 MG TABLET PO SCH ×2 (08:29→19:58)
[2021-06-09] MEDS: PANTOprazole 40 MG TAB PO SCH (08:30)
[2021-06-09] MEDS: CEROVITE ADV FORMULA TAB PO SCH (08:30)
[2021-06-09] MEDS: ENOXAPARIN INJ 40 MG/0.4 ML SYR SQ SCH (08:30)
[2021-06-09] MEDS: DULoxetine HCL 60 MG CAP PO SCH (08:30)
[2021-06-09] MEDS ORDERED: MAGNESIUM SULFATE / D5W 1 GM/100 ML BAG IV ONE (11:30)
--- NOTE | 2021-06-09 11:30 | Hospitalist Progress Note ---
Date of Service June 09, 2021 Assessment & Plan (1) Fracture of greater trochanter of right femur: Plan: Closed/Mildly Displaced Right Hip Fracture Mildly displaced, closed oblique fracture of right greater trochanter, per CT right hip. Suspect repeat fractures due to falls in an old/frail/osteoporotic woman. - Orthopedic surgery contacted in the ED - no plan for surgical management Formal orthopedic consult Ambulatory Dysfunction; Generalized Weakness With increased frequency in falls at home over the last several months. Patient lives alone and is high fall risk. - PT/OT consulted as stated above - patient will likely require acute rehab vs SNF before returning home, and may benefit from discussion about LTC facility She seems to want to go home but is wheelchair-bound and probably not realistic Paroxysmal Atrial Fibrillation CHADS-VASc score of 4, but reportedly has not been in a-fib for "years". - given current sizeable R rectus femoris hematoma, will hold home Eliquis for now, pending repeat H/H and stability of hematoma - continue home Diltiazem and Flecainide Hypomagnesemia - Mg 1.2 - repleting GERD - Protonix per hospital formulary Persistent tachycardia D-dimer Noted blood pressure Repeat H&H pm given hematoma Continue gentle volume Mild hyponatremia can be followed Admission and Anticipated Discharge Date Admission Date: June 09, 2021 Subjective Follow-up of fall and hip fractureno new complaint Physical Exam Physical Exam: Constitutional and general: No acute distress, looks biologic age Head and face: No puffiness, atraumatic Eyes: No scleral icterus, extraocular movements normal Neck: Supple, no JVD Skin/dermatologic/integument: No rash, no purpura Hematologic and lymphatic: pallor +, no petechia Gastrointestinal/abdomen: Nondistended, soft, nonacute Neurologic: Cranial nerves intact, nonfocal Psychiatry: Awake, alert, pleasant, communicative Cardiovascular: Heart rhythm regular, no rub, no murmur, no gallop Respiratory: Chest movements equal, no use of accessory muscles, no adventitious sounds Extremities: No edema, no cyanosis Results & Data Results & Data ([facility]) Vital Signs (Past 12 Hours) Vital Signs Temp Pulse Pulse Pulse Resp BP BP 06/09/21 10:40 36.4 C L 86 12 96/60 L 06/09/21 07:20 37.1 C 108 H 13 104/70 06/09/21 06:18 106 H 06/09/21 04:06 36.6 C 103 H 18 112/74 06/09/21 02:44 105 H 18 125/70 06/09/21 00:58 106 H 18 104/58 L Pulse Ox Pulse Ox 06/09/21 10:40 93 06/09/21 07:20 93 06/09/21 06:18 06/09/21 04:06 90 90 06/09/21 02:44 95 06/09/21 00:58 94 Laboratory Results Laboratory Results - last 24 hr 06/09/21 06/09/21 06/09/21 01:30 01:35 01:35 WBC 9.84 RBC 3.45 L Hgb 11.9 L Hct 36.3 L MCV 105.2 H MCH 34.5 H MCHC 32.8 RDW Std Deviation 54.6 H RDW Coeff of Tyra 14.3 Plt Count 278 MPV 9.1 Immature Gran % (Auto) 0.2 Neut % (Auto) 70.8 Lymph % (Auto) 17.5 Powell % (Auto) 11.0 Eos % (Auto) 0.2 Baso % (Auto) 0.3 Neut # (Auto) 6.97 H Lymph # (Auto) 1.72 Powell # (Auto) 1.08 H Eos # (Auto) 0.02 Baso # (Auto) 0.03 Immature Gran # (Auto) 0.02 PT 12.2 H INR 1.2 H APTT 31.5 H PTT Ratio 1.1 Sodium Potassium Chloride Carbon Dioxide Anion Gap BUN Creatinine Est Cr Clr Drug Dosing Est GFR ( Amer) Est GFR (Non-Af Amer) BUN/Creatinine Ratio Glucose Calcium Magnesium Total Bilirubin AST ALT Alkaline Phosphatase Total Protein Albumin Globulin Albumin/Globulin Ratio SARS-CoV-2, RNA, NAAT NEGATIVE 06/09/21 01:35 WBC RBC Hgb Hct MCV MCH MCHC RDW Std Deviation RDW Coeff of Tyra Plt Count MPV Immature Gran % (Auto) Neut % (Auto) Lymph % (Auto) Powell % (Auto) Eos % (Auto) Baso % (Auto) Neut # (Auto) Lymph # (Auto) Powell # (Auto) Eos # (Auto) Baso # (Auto) Immature Gran # (Auto) PT INR APTT PTT Ratio Sodium 134 L Potassium 3.6 Chloride 97 L Carbon Dioxide 27 Anion Gap 10 BUN 12 Creatinine 0.75 Est Cr Clr Drug Dosing 51.9 Est GFR ( Amer) 86.0 Est GFR (Non-Af Amer) 74.2 BUN/Creatinine Ratio 16.0 Glucose 92 Calcium 8.1 L Magnesium 1.2 L Total Bilirubin 0.6 AST 17 ALT 10 Alkaline Phosphatase 131 H Total Protein 5.5 L Albumin 3.0 L Globulin 2.5 Albumin/Globulin Ratio 1.2 SARS-CoV-2, RNA, NAAT PG Care Time/CCT Total # of Minutes Spent Total Time Spent with Patient: Total time spent is greater than 50% in coordination of care (as documented) at patient's floor/unit and/or counseling patient: Coding Level of Care Code None Diagnoses Fracture of greater trochanter of right femur S72.111A
--- NOTE | 2021-06-09 16:28 | Orthopedic Consultation ---
Date of Service June 09, 2021 Assessment & Plan (1) Fracture of greater trochanter of right femur: Fortunately this can be treated nonoperatively. She can be weightbearing as tolerated with a walker with her right leg. These fractures usually take 4 to 6 weeks before they heal enough they are no longer sore. She is orthopedically stable for discharge when medically ready. She can follow-up with orthopedics in 4 weeks for repeat x-rays. Our office phone number is [phone]. History of Present Illness Reason for Consultation: Nondisplaced right greater trochanteric hip fracture. Requesting Physician: . Attending Physician: Fred Hensley MD Gigi is a pleasant 81-year-old female who normally ambulates with a walker. She does have a history of a right hip replacement by Dr. Kirk in the past. Her legs felt weak on her yesterday and she fell. She injured her right hip. She was having hip pain and came to the emergency room. Radiographs and CT scan showed a nondisplaced greater trochanteric hip fracture. Orthopedics was consulted to evaluate and treat. Allergies Allergy/AdvReac Type Severity Reaction Status Date / Time No Known Allergies Allergy Verified 06/09/21 00:03 Home Medications Medication Instructions Recorded Confirmed Type vitamins A,C,S-otsy-gbzdtd 14,320 1 cap PO QAM 06/30/18 06/09/21 History unit-226 mg-200 unit capsule (PreserVision AREDS) pzhlibnr-uft-tsysv acid 0.4 1 tab PO DAILY 09/10/20 06/08/21 History mg-lycopene 300 mcg-lutein 250 mcg tablet (Centrum Silver) nystatin 100,000 unit/gram topical 1 applic TOPICAL BID #30 g 11/15/20 06/08/21 Rx cream diltiazem HCl 120 mg capsule,24 120 mg PO QAM #90 cap 11/25/20 06/08/21 Rx hr,extended release flecainide 100 mg tablet 100 mg PO Q12H #180 tab 12/25/20 06/08/21 Rx duloxetine 60 mg capsule,delayed 60 mg PO QAM #90 cap 01/21/21 06/08/21 Rx release omeprazole 40 mg capsule,delayed 40 mg PO QAM #90 cap 01/21/21 06/08/21 Rx release oxycodone 5 mg tablet (Roxicodone) 5 mg PO Q8H PRN #30 tab 05/23/21 06/09/21 Rx apixaban 5 mg tablet (Eliquis) 5 mg PO BID #60 tab 06/05/21 06/08/21 Rx acetaminophen 500 mg tablet 1,000 mg PO Q6H PRN 06/08/21 06/09/21 History (Tylenol Extra Strength) Past Med/Surg History Medical History Anemia Anxiety Chronic anticoagulation Chronic kidney disease, stage III (moderate) Cystic thyroid nodule Depression Diaphragmatic hernia Diastolic dysfunction Disc degeneration, lumbar Diverticulosis GERD without esophagitis Grief Loss of spouse August 2018 Hypercholesterolemia Hypertension Lumbar spinal stenosis LVH (left ventricular hypertrophy) Macular degeneration Mitral regurgitation MODERATE Osteoarthritis Osteoporosis PAF (paroxysmal atrial fibrillation) Rheumatoid arthritis Right thyroid nodule Scoliosis Vitamin D deficiency Surgical History H/O bilateral oophorectomy B/L SALPINGOOPHORECTOMY= 04/12/17= GRADE VIEW 2, MAC 3, ETT 7.5 AT [facility] History of adenoidectomy History of cataract surgery RIGHT/LEFT History of hysterectomy (1988) History of open reduction and internal fixation (ORIF) procedure (1993) RIGHT ANKLE History of tonsillectomy History of tooth extraction History of total hip arthroplasty RIGHT Knee arthropathy w/ medial meniscus repair in 10/2017 S/P ORIF (open reduction internal fixation) fracture (~03/2021) Left Hip S/P thyroid surgery right thyroid lobectomy Dr. Thornton 01/06/19 Status post arthroscopic partial medial meniscectomy (11/02/17) R knee Family History Father Coronary heart disease Colorectal cancer Kidney disease Lung disease Mother Coronary heart disease Myocardial infarction Gallbladder disease Sister Diabetes Colorectal cancer Denies family history of Ovarian cancer Prostate cancer Breast cancer Social History Smoking Status: Never smoker Second Hand Exposure: Yes (RARE EXPOSURE); Hx Alcohol Use: Yes Alcohol type: hard liquor Alcohol Intake Frequency: 4 or More x per/Week Hx Substance Use: No Preferred Language: South African Communication Ability: Effective Visual Impairment: No Limitations Hearing Ability: Use of Hearing Aid Director [employer] Required: No Beliefs That Will Affect Care: None marital status: / marital status details: passed August 2018 Current Living Situation: Alone Current Living Situation Comment: alone current occupational status: retired 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 Physical Exam On physical examination of the right hip, she has tenderness palpation over the greater trochanter. She does have a little bit of pain with range of motion of the hip. Constitutional WD/WN, vitals as above Eyes PERRL, conjunctivae normal, anicteric sclerae ENMT external ear and nose normal, oropharynx normal Neck trachea midline, no thyromegaly Respiratory normal respiratory effort Cardiovascular RRR, no murmur, no edema Gastrointestinal (Abdomen) normal bowel sounds, soft, nontender, no hepatosplenomegaly Psychiatric A+Ox3, euthymic affect Results & Data Results & Data Laboratory Results . Diagnostic Findings X-rays of the right hip show a well-placed right hip replacement with a nondisplaced greater trochanteric fracture CT scan of the right hip does confirm the nondisplaced greater trochanteric hip fracture with a moderate size hematoma. PG Care Time/CCT Total # of Minutes Spent Total Time Spent with Patient: Total time spent is greater than 50% in coordination of care (as documented) at patient's floor/unit and/or counseling patient: Coding Level of Care Code 93719 Inpt Consult Level 4 Diagnoses Fracture of greater trochanter of right femur S72.111A
[2021-06-09] MEDS ORDERED: SODIUM CHLORIDE 0.9% 1000ML 1,000 ML IV SCH (18:00)
[2021-06-09 18:17] LABS: Hematocrit (blood only) 32.6 % (37-47); Hemoglobin 10.7 g/dL (12.0-16.0)
[2021-06-09 19:23] LABS: D Dimer 1040 ug/L FEU (0-500)
[2021-06-09] MEDS ORDERED: OPTIRAY 320 125ml IV ONE (21:58)
--- NOTE | 2021-06-09 22:37 | Electrocardiogram Report ---
Test Reason : Blood Pressure : / mmHG Vent. Rate : 109 BPM Atrial Rate : 120 BPM P-R Int : 000 ms QRS Dur : 086 ms QT Int : 246 ms P-R-T Axes : 000 -21 192 degrees QTc Int : 331 ms Poor data quality, interpretation may be adversely affected Possible Sinus tachycardia Abnormal ECG When compared with ECG of 06-JUL-2020 19:52, ST now depressed in Inferior leads ST now depressed in Anterolateral leads T wave inversion now evident in Lateral leads QT has shortened Confirmed by Atif Pryor ([id number]) on 06/09/2021 10:36:44 PM Referred By: REFERRED SELF Confirmed By:Atif Pryor
--- NOTE | 2021-06-09 23:16 | Electrocardiogram Report ---
Test Reason : Blood Pressure : / mmHG Vent. Rate : 092 BPM Atrial Rate : 092 BPM P-R Int : 252 ms QRS Dur : 100 ms QT Int : 360 ms P-R-T Axes : 018 -28 157 degrees QTc Int : 445 ms Sinus rhythm with 1st degree A-V block Nonspecific T wave abnormality Abnormal ECG When compared with ECG of 09-JUN-2021 01:39, ST no longer depressed in Anterolateral leads Confirmed by Atif Pryor ([id number]) on 06/09/2021 11:15:51 PM Referred By: REFERRED SELF Confirmed By:Atif Pryor
[2021-06-10 06:42] LABS: Basophils # (auto) 0.04 K/uL (0-0.2); Basophils % (auto) 0.5 %; Eosinophils # (auto) 0.01 K/uL (0-0.5); Eosinophils % (auto) 0.1 %; Hematocrit (blood only) 31.9 % (37-47); Hemoglobin 10.3 g/dL (12.0-16.0); Immature Granulocytes # (auto) 0.02 K/uL (0.00-0.02); Immature Granulocytes % (auto) 0.3 %; Lymphocytes # (auto) 1.28 K/uL (1.2-3.4); Lymphocytes % (auto) 16.5 %; Mean Corpuscular Hemoglobin 35.5 pg (25-34); Mean Corpuscular Hgb Conc 32.3 g/dL (32-36); Mean Platelet Volume 9.9 fL (7.4-10.4); Monocytes # (auto) 0.96 K/uL (0.11-0.59); Monocytes % (auto) 12.4 %; Neutrophils # (auto) 5.43 K/uL (1.4-6.5); Neutrophils % (auto) 70.2 %; Platelet Count 186 K/uL (130-400); RDW Coefficient of Variation 14.4 % (11.5-14.5); RDW Standard Deviation 57.9 fL (36.4-46.3); White Blood Count 7.74 K/uL (4.8-10.8)
[2021-06-10 07:02] LABS: Albumin Globulin Ratio 1.2 (0.9-2); Albumin Level 2.6 gm/dl (3.4-5.0); BUN Creatinine Ratio 22.1 (10-20); Bilirubin,Total 0.8 mg/dl (0.2-1.0); Calcium 8.1 mg/dl (8.5-10.1); Creatinine Clr Calc Pharmacy 56.5 ml/min; Est GFR (African American) 94.4 ml/min; Est GFR (Non-African American) 81.5 ml/min; Globulin 2.2 gm/dl (2.5-4.0); Magnesium 1.7 mg/dl (1.7-2.4); Potassium 4.2 mmol/L (3.5-5.1); Total Protein 4.8 gm/dl (6.0-8.3)
[2021-06-10 07:16] LABS: Macrocytosis Present
--- NOTE | 2021-06-10 08:16 | CT Scan Report ---
CHEST CTA for PULMONARY ARTERIES CT DOSE: 236.62 mGy.cm HISTORY: Recent hip fracture. Atypical chest pain. Epigastric chest pain. elevated d-dimer TECHNIQUE: Multiaxial CT images of the chest were performed following the intravenous administration of contrast to evaluate the pulmonary arteries. Maximal intensity projection images were also obtaine d. A dose lowering technique was utilized adhering to the principles of ALARA. COMPARISON STUDY: Chest CT 07/06/2020. FINDINGS: Limited views the upper abdomen demonstrate normal liver and spleen. There is a large hiatu s hernia containing the stomach and mid transverse colon. This remains unchanged. There are small ander ateral pleural effusions. The heart remains enlarged. No pericardial effusion. No mediastinal or karon r lymphadenopathy. Normal caliber thoracic aorta with no evidence for dissection. Left lower lobe sub segmental pulmonary arteries are nondiagnostic due to the motion artifact. However, the remaining pul monary arteries show no filling defects to suggest a pulmonary embolus. Moderate calcified plaque wit hin the left coronary arteries. Multiple old, healed bilateral rib fractures. Subacute right posterio r fourth and fifth rib fractures. There are also subacute fractures involving the spinous processes a nd right transverse processes at T4 and T5. Mild superior endplate compression fracture at T4 demonst rating 10% loss of height also appears subacute. Old midsternal fracture again noted. No pneumothorax . The central airways are patent. Bilateral lower lobe densities favor compressive atelectasis from t he large hiatus hernia. Otherwise, the upper lung zones remain clear. IMPRESSION: 1. No evidence for pulmonary embolus. 2. Large hiatus hernia, unchanged. 3. Small bilateral pleural effusions. 4. Subacute/healing right posterior fourth and fifth rib fractures as well as subacute fractures invo lving the spinous processes and right transverse processes at T4 and T5. There is also a subacute fra cture involving the superior endplate of T4 demonstrating 10% loss of height. 5. Bibasilar linear densities favor subsegmental atelectasis. ACT 112: Negative or not required by law. Electronically signed by: Erwin Ha M.D. 06/10/2021 8:14 AM
[2021-06-10] MEDS: CEROVITE ADV FORMULA TAB PO SCH (08:23)
[2021-06-10] MEDS: dilTIAZem ER 120 MG CAPCR PO SCH (08:23)
[2021-06-10] MEDS: PANTOprazole 40 MG TAB PO SCH (08:23)
[2021-06-10] MEDS: FLECAINIDE ACETATE 100 MG TABLET PO SCH (08:23)
[2021-06-10] MEDS: DULoxetine HCL 60 MG CAP PO SCH (08:23)
[2021-06-10] MEDS: ENOXAPARIN INJ 40 MG/0.4 ML SYR SQ SCH (08:24)
[2021-06-10] MEDS: oxyCODONE HCL IR 5 MG TAB (IMMEDIATE RELEASE) PO PRN (08:32)
--- NOTE | 2021-06-10 09:08 | Hospitalist Progress Note ---
Date of Service June 10, 2021 Assessment & Plan (1) Fracture of greater trochanter of right femur: Plan: Closed/Mildly Displaced Right Hip Fracture Mildly displaced, closed oblique fracture of right greater trochanter, per CT right hip. Suspect repeat fractures due to falls in an old/frail/osteoporotic woman. -Nonoperative per Ortho, weightbearing as tolerated Ambulatory Dysfunction; Generalized Weakness With increased frequency in falls at home over the last several months. Patient lives alone and is high fall risk. - PT/OT consulted as stated above - patient will likely require acute rehab vs SNF before returning home, and may benefit from discussion about LTC facility At present insistent on going home even though rehab recommended Paroxysmal Atrial Fibrillation CHADS-VASc score of 4, but reportedly has not been in a-fib for "years". - given current sizeable R rectus femoris hematoma, will hold home Eliquis for now, pending repeat H/H and stability of hematoma - continue home Diltiazem and Flecainide Given the risks at present no anticoagulationoutpatient cardiology for consideration of watchman Hypomagnesemia - Mg 1.2 -replete as appropriate GERD - Protonix per hospital formulary Persistent tachycardiabetter; D-dimer negative Stop IV fluids Spinous process and endplate thoracic fracture-likely nothing specific to be done but spine surgery consult Mild hyponatremia can still be followed Admission and Anticipated Discharge Date Admission Date: June 09, 2021 Subjective Follow-up of fall and hip fractureno new complaint; keeps wanting to go home Physical Exam Physical Exam: Constitutional and general: No acute distress, looks biologic age Head and face: No puffiness, atraumatic Eyes: No scleral icterus, extraocular movements normal Neck: Supple, no JVD Musculoskeletal: No acute joint swelling, no bony abnormalities Skin/dermatologic/integument: No rash, no purpura Hematologic and lymphatic: pallor +, no petechia Gastrointestinal/abdomen: Nondistended, soft, nonacute Neurologic: Cranial nerves intact, nonfocal Psychiatry: Awake, alert, pleasant, communicative Cardiovascular: Heart rhythm regular, no rub, no murmur, no gallop Respiratory: Chest movements equal, no use of accessory muscles, no adventitious sounds Extremities: No edema, no cyanosis Results & Data Results & Data ([facility]) Vital Signs (Past 12 Hours) Vital Signs Temp Pulse Pulse Resp BP BP Pulse Ox 06/10/21 07:40 37.1 C 82 18 128/77 96 06/10/21 04:01 36.5 C 81 18 124/71 93 06/10/21 01:15 84 06/09/21 23:29 36.5 C 85 18 121/69 92 PG Care Time/CCT Total # of Minutes Spent Total Time Spent with Patient: Total time spent is greater than 50% in coordination of care (as documented) at patient's floor/unit and/or counseling patient: Coding Level of Care Code 74374 Subseq Hosp Care Lvl 2 Diagnoses Fracture of greater trochanter of right femur S72.111A
--- NOTE | 2021-06-10 12:20 | Discharge Summary ---
Date of Service June 10, 2021 Admission HPI Per Admitting Provider Moni Carvajal is an 81yo female with PMHx significant for paroxysmal atrial fibrillation (on Eliquis, Flecainide and Diltiazem), h/o left hip fracture s/p ORIF in 03/2021, h/o right hip replacement, osteoporosis, vitamin D deficiency, HTN, hypercholesterolemia, GERD and depression who presented to [facility] ED on 06/09 after fall, with impact to head and right hip and without LOC. Patient reports that she was ambulating around her home in the evening, when she usually feels weaker. Reports that legs "just buckled under" her and she fell. This does happen on occasion. Denies recent respiratory/GI/urinary symptoms. Denies fever/chills. Denies weight loss, decreased appetite or decreased fluid intake. Usually drinks 6-8 cups of water per day. Does report occasional falls at home, with several falls in the last several months. Walker-dependent at home and often transitions to wheelchair in the evenings to avoid falls. Proficient in all ADLs and is also able to clean/cook/do laundry at home. Has help with groceries. Lives in a one-story home with ramp up to front door. In the ED the patient tachycardic to 106 but otherwise afebrile and VS stable/WNL. No labs were drawn. CT head and CT c-spine were without acute abnormalities. CT right hip showed >6cm hematoma along anterior aspect of mid femur, within rectus femoris. Also showed oblique fracture through right greater trochanter that is displaced 1mm. Also with old healed fracture of right pubic ramus. Orthopedic surgery was contacted by ED provider, without plan for surgical intervention. Patient was given Tylenol 1g IV x1 for pain. Specialty Data Hospitalist Discharge exam: Constitutional and general: No acute distress, looks biologic age Head and face: No puffiness, atraumatic Eyes: No scleral icterus, extraocular movements normal Musculoskeletal: No acute joint swelling, no bony abnormalities Skin/dermatologic/integument: No rash, no purpura Hematologic and lymphatic: pallor +, no petechia Gastrointestinal/abdomen: Nondistended, soft, nonacute Neurologic: Cranial nerves intact, nonfocal Psychiatry: Awake, alert, pleasant, communicative Cardiovascular: Heart rhythm regular Respiratory: Chest movements equal, no use of accessory muscles, no adventitious sounds Vital Signs Temp Pulse Pulse Resp BP BP Pulse Ox 06/10/21 11:38 36.5 C 90 18 128/71 91 06/10/21 08:00 80 06/10/21 07:40 37.1 C 82 18 128/77 96 06/10/21 04:01 36.5 C 81 18 124/71 93 06/10/21 01:15 84 06/09/21 23:29 36.5 C 85 18 121/69 92 06/09/21 20:00 36.7 C 85 18 122/66 94 06/09/21 14:19 106 H Intake and Output 06/09/21 06/10/21 06/10/21 22:59 06:59 14:59 Intake Total 1275 / 2225 693.333 / 693.333 Output Total 250 / 250 Balance 5 / 1975 693.333 / 693.333 Intake: IV 1000 / 1100 693.333 / 693.333 Lactated Ringer's 1,000 ml @ 80 1000 / 1000 mls/hr IV .[id number] JULIANE Rx#: [id number] Sodium Chloride 0.9% 1000ML 1, 693.333 / 693.333 000 ml @ 50 mls/hr IV .Q20H JULIANE Rx#:[id number] Oral 275 / 1125 Output: Urine 250 / 250 Other: Other Intake Source SIPS Weight 65 kg 65.2 kg Weight Measurement Method Built in [facility] Discharge Data Consultations 06/09/21 01:01 ED Decision to Admit Stat 06/10/21 08:58 Consult Orthopedic Surgery Routine Hospital Course (1) Fracture of greater trochanter of right femur: Closed/Mildly Displaced Right Hip Fracture Mildly displaced, closed oblique fracture of right greater trochanter, per CT right hip. Suspect repeat fractures due to falls in an old/frail/osteoporotic woman. -Nonoperative per Ortho, weightbearing as tolerated Ambulatory Dysfunction; Generalized Weakness With increased frequency in falls at home over the last several months. Patient lives alone and is high fall risk. - PT/OT consulted -physical therapy communicated not safe for her going home and recommended inpatient rehab Patient insistent on going home even though rehab recommended-I could not disc harge her in good conscience-she signed AMA She is very sharp, quite pleasant and very decisional in my opinion Also, note she did not permit care team members to call family Paroxysmal Atrial Fibrillation CHADS-VASc score of 4, but reportedly has not been in a-fib for "years". - given current sizeable R rectus femoris hematoma, will hold home Eliquis for now, pending repeat H/H and stability of hematoma - continue home Diltiazem and Flecainide Given the risks at present no anticoagulationoutpatient cardiology for consideration of Watchman Hypomagnesemia - Mg 1.2 -repleted as appropriate GERD -Continue PPI Persistent tachycardiabetter; D-dimer negative Spinous process and endplate thoracic fracture-likely nothing specific to be done but spine surgery consult initiated - she declined Mild hyponatremia can still be followed Discharge Instructions Verbally instructed stop Eliquis Coding Level of Care Code D/C DAY MANAGEMENT >30 MINS Diagnoses Fracture of greater trochanter of right femur S72.111A Time Spent (min) 40 Comment Discussion with patient repeatedly, care team
--- NOTE | 2021-06-16 23:39 | Billing Data ---
Date of Service June 16, 2021 Coding Level of Care Code 84689 Initial Inpt Care Lvl 3
== END 2021-06-10 12:54 | disposition left against medical advice (07) ==
LOC: ED 22:31 → INTOOBSV 06-09 02:05 → SUATTDRO 06-09 02:05 → 2N 06-09 02:05

== ENCOUNTER 2021-06-20 15:34 | Inpatient (IN) ==
--- NOTE | 2021-06-20 16:04 | Emergency Department Note ---
Impression & Plan Cellulitis, Anemia, Bilateral edema of lower extremity, Hematoma of right lower extremity ED Provider Note NAME: WARREN GUZMAN AGE: 81 SEX: F : 1940 ARRIVES VIA: Ambulance INFORMANT: Patient, ED PROVIDER(S): Kavon Falcon DO CHIEF COMPLAINT: Leg swelling HPI: The patient is an 81-year-old female who presented to emergency department by ALS for an evaluation of leg swelling. The patient noticed leg swelling and ecchymosis over the course the last 3 weeks. She did have a fall but denies having any pain in her leg at this time. She does take oral anticoagulation. She denies having any fever or cough. She denies having any chest pain or difficulty breathing. The patient was having difficulty going to her family doctor's today so her family called 911 to help take her to the doctor. Instead the medics brought patient to the emergency department because they said they would be bringing her here anyway later. The patient herself states that she does not have any pain in her legs. She does note some ecchymosis of the lower extremity. She also notices significant clear drainage from the right leg where there is a small skin break. ROS: See above HPI for pertinent positives & negatives. A total of 10 systems reviewed and were otherwise negative. PAST MEDICAL HISTORY: See Below PAST SURGICAL HISTORY: See Below FAMILY HISTORY: See Below SOCIAL HISTORY: See Below HOME MEDICATIONS: See Below ALLERGIES: See Below VITALS: See Below PHYSICAL EXAMINATION: GENERAL: Patient is awake alert in no acute distress patient is resting comfortably and showing no signs of anxiety EYES: The conjunctivae are clear. The pupils are round and reactive. EARS, NOSE, MOUTH AND THROAT: The nose is without any evidence of any deformity. Mucous membranes are moist. Tongue is midline. NECK: The neck is nontender and supple. RESPIRATORY: Normal respiratory effort is noted there is no evidence of wheezing rhonchi or rales CARDIOVASCULAR: Regular rate and rhythm noted there no murmurs rubs or gallops normal S1 normal S2. GASTROINTESTINAL: The abdomen is soft. Abdomen is nontender. MUSCULOSKELETAL/EXTREMITIES: There is no evidence of gross deformity full range of motion is noted in the hips and shoulders. SKIN: There was significant pedal edema noted bilaterally. There is ecchymosis noted over the right lower extremity. Skin was warm and dry. There was a small area of skin breakage over the right anterior stewart. NEUROLOGIC: Patient is awake alert and oriented x3. MEDICAL DECISION MAKING: The patient is an 81-year-old female who presented to the emergency department for an evaluation of lower extremity swelling ecchymosis to the right leg and drainage from the right leg. The patient had a fall recently and injured her r ight leg. She appears to have a large hematoma in her right leg and due to her anticoagulation use this likely is forming a large subcutaneous hematoma. I discussed the patient's laboratory and radiographic studies with her. She was started on antibiotics for cellulitis. She was reevaluated multiple times. I did discuss her case with the on-call [facility] hospitalist. They have agreed to evaluate the patient in the emergency department for further management and disposition. Triage Nursing notes reviewed. Prior medical records reviewed Vital Signs: reviewed and remarkable for tachycardia and hypertension. Differential diagnosis: Cellulitis, abscess, MRSA infection, DVT, necrotizing fasciitis, dermatitis, drug eruption, allergic reaction, as well as other pathologies. ER treatment provided: See below Diagnostics interpreted by me: ECG: EKG was obtained in the emergency department. My interpretation is sinus tachycardia at 102 bpm. Anterior Q waves and diffuse ST segment abnormalities were noted. This was compared to a tracing from June 092021. No changes were noted. Cardiac Monitoring: An order was placed for continuous cardiac monitoring. The monitor shows a rate of 105 bpm with sinus tachycardia. Laboratory studies: As stated above and show below. Imaging studies: See below Consultation(s): I discussed this case with the on-call [facility] hospitalist. Past Med/Surg History Medical History Anemia Anxiety Chronic anticoagulation Chronic kidney disease, stage III (moderate) Cystic thyroid nodule Depression Diaphragmatic hernia Diastolic dysfunction Disc degeneration, lumbar Diverticulosis GERD without esophagitis Grief Loss of spouse August 2018 Hypercholesterolemia Hypertension Lumbar spinal stenosis LVH (left ventricular hypertrophy) Macular degeneration Mitral regurgitation MODERATE Osteoarthritis Osteoporosis PAF (paroxysmal atrial fibrillation) Rheumatoid arthritis Right thyroid nodule Scoliosis Vitamin D deficiency Surgical History H/O bilateral oophorectomy B/L SALPINGOOPHORECTOMY= 04/12/17= GRADE [facility]IEW 2, MAC 3, ETT 7.5 AT [facility] History of adenoidectomy History of cataract surgery RIGHT/LEFT History of hysterectomy (1988) History of open reduction and internal fixation (ORIF) procedure (1993) RIGHT ANKLE History of tonsillectomy History of tooth extraction History of total hip arthroplasty RIGHT Knee arthropathy w/ medial meniscus repair in 10/2017 S/P ORIF (open reduction internal fixation) fracture (~03/2021) Left Hip S/P thyroid surgery right thyroid lobectomy Dr. Thornton 01/06/19 Status post arthroscopic partial medial meniscectomy (11/02/17) R knee Family History Father Coronary heart disease Colorectal cancer Kidney disease Lung disease Mother Coronary heart disease Myocardial infarction Gallbladder disease Sister Diabetes Colorectal cancer Denies family history of Ovarian cancer Prostate cancer Breast cancer Social History Smoking Status: Never smoker Second Hand Exposure: Yes (RARE EXPOSURE); Hx Alcohol Use: Yes Alcohol type: hard liquor Alcohol Intake Frequency: 4 or More x per/Week Hx Substance Use: No Preferred Language: Malawian Communication Ability: Effective Visual Impairment: No Limitations Hearing Ability: Use of Hearing Aid .Net Architect Required: No Beliefs That Will Affect Care: None marital status: / marital status details: passed August 2018 Current Living Situation: Alone Current Living Situation Comment: alone current occupational status: retired 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 How many Children do You have: 2 Feels Safe at Home: Yes Childhood Exposure to Second-Hand Smoke: No Diet Comment: regular caffeine: Yes (1/2 cup a day) during the past year weight has: decreased > 10 lbs Dental Care, Regularly: Yes Physical Activity Frequency: Daily Seatbelt Use: always Sunscreen Use: No Assistive Devices: Walker and Wheelchair Allergies Allergies Allergy/AdvReac Type Severity Reaction Status Date / Time No Known Allergies Allergy Verified 06/20/21 20:46 Home Meds Home Medications Medication Instructions Recorded Confirmed vitamins A,C,O-zndm-jahcaw 14,320 1 cap PO QAM 06/30/18 06/20/21 unit-226 mg-200 unit capsule (PreserVision AREDS) doihwzvv-reo-dqppw acid 0.4 1 tab PO DAILY 09/10/20 06/20/21 mg-lycopene 300 mcg-lutein 250 mcg tablet (Centrum Silver) acetaminophen 500 mg tablet 1,000 mg PO Q6H PRN 06/08/21 06/20/21 (Tylenol Extra Strength) apixaban 5 mg tablet (Eliquis) 5 mg PO BID 06/20/21 06/20/21 Previous Rx's Medication Instructions Recorded nystatin 100,000 unit/gram topical 1 applic TOPICAL BID #30 g 11/15/20 cream diltiazem HCl 120 mg capsule,24 120 mg PO QAM #90 cap 11/25/20 hr,extended release flecainide 100 mg tablet 100 mg PO Q12H #180 tab 12/25/20 duloxetine 60 mg capsule,delayed 60 mg PO QAM #90 cap 01/21/21 release omeprazole 40 mg capsule,delayed 40 mg PO QAM #90 cap 01/21/21 release oxycodone 5 mg tablet (Roxicodone) 5 mg PO Q8H PRN #30 tab 05/23/21 Results & Data (ED) Vital Signs Vital Signs - 24 hr 06/20/21 15:47 06/20/21 19:03 Temperature 36.3 C L Temperature Source Oral Pulse Rate 101 H Pulse Rate [Apical] 101 H 106 H Pulse Rhythm [Apical] Regular Pulse Strength [Apical] Normal Respiratory Rate 20 16 Respiratory Effort / Characteristics Non-Labored Non-Labored Spontaneous Respiratory Depth Normal Normal Respiratory Pattern Regular Regular Blood Pressure 120/64 Blood Pressure [Left Arm] 120/64 125/79 Blood Pressure Mean 82 Blood Pressure Mean [Left Arm] 82 94 Blood Pressure Position [Left Arm] Lying Pulse Oximetry 99 96 Oxygen Delivery Method Room Air Room Air Sepsis Recent Fever Within 48 Hours No Sepsis New/Unexplained Change in Mental Status No Sepsis Action Taken by Nursing No Action Required Home Medications Current Medication List: was personally reviewed by me Laboratory Data Attestation: I reviewed the patient's lab results. Result diagrams: 06/20/21 15:58 06/20/21 17:17 Lab Results 06/20/21 06/20/21 06/20/21 Range/Units 15:58 15:58 15:58 WBC 10.64 (4.8-10.8) K/uL RBC 2.73 L (4.2-5.4) M/uL Hgb 9.8 L (12.0-16.0) g/dL Hct 29.8 L (37-47) % MCV 109.2 H (80-100) fL MCH 35.9 H (25-34) pg MCHC 32.9 (32-36) g/dL RDW Std Deviation 67.9 H (36.4-46.3) fL RDW Coeff of Tyra 17.5 H (11.5-14.5) % Plt Count 556 H (130-400) K/uL MPV 8.2 (7.4-10.4) fL Immature Gran % (Auto) 0.3 % Neut % (Auto) 76.9 % Lymph % (Auto) 12.0 % Marin % (Auto) 10.4 % Eos % (Auto) 0.1 % Baso % (Auto) 0.3 % Neut # (Auto) 8.18 H (1.4-6.5) K/uL Lymph # (Auto) 1.28 (1.2-3.4) K/uL Marin # (Auto) 1.11 H (0.11-0.59) K/uL Eos # (Auto) 0.01 (0-0.5) K/uL Baso # (Auto) 0.03 (0-0.2) K/uL Immature Gran # (Auto) 0.03 H (0.00-0.02) K/uL ESR 37 H (0-30) mm/hr PT (9.0-12.0) Seconds INR (0.9-1.1) APTT (21.0-31.0) Seconds PTT Ratio Sodium 130 L (136-145) mmol/L Potassium TNP Chloride 93 L (98-107) mmol/L Carbon Dioxide 28 (21-32) mmol/L Anion Gap 9 (3-11) BUN 13 (6-23) mg/dl Creatinine 0.70 (0.6-1.2) mg/dl Est Cr Clr Drug Dosing Not Reportable Est GFR ( Amer) 93.5 ml/min Est GFR (Non-Af Amer) 80.7 ml/min BUN/Creatinine Ratio 18.6 (10-20) Glucose 100 H (70-99(Fasting)) mg/dl Calcium 8.2 L (8.5-10.1) mg/dl Magnesium (1.7-2.4) mg/dl Total Bilirubin 1.9 H (0.2-1.0) mg/dl AST TNP ALT 18 (7-52) U/L Alkaline Phosphatase 188 H (34-104) U/L Troponin I < 0.03 (0-0.04) ng/ml C-Reactive Protein 12.30 H (0-0.5) mg/dl Total Protein 5.7 L (6.0-8.3) gm/dl Albumin 3.0 L (3.4-5.0) gm/dl Globulin 2.7 (2.5-4.0) gm/dl Albumin/Globulin Ratio 1.1 (0.9-2) Lipase 91 H (11-82) U/L HCG, Qual (Negative) SARS-CoV-2, RNA, NAAT (NEGATIVE) 06/20/21 06/20/21 06/20/21 Range/Units 15:58 15:58 17:17 WBC (4.8-10.8) K/uL RBC (4.2-5.4) M/uL Hgb (12.0-16.0) g/dL Hct (37-47) % MCV (80-100) fL MCH (25-34) pg MCHC (32-36) g/dL RDW Std Deviation (36.4-46.3) fL RDW Coeff of Tyra (11.5-14.5) % Plt Count (130-400) K/uL MPV (7.4-10.4) fL Immature Gran % (Auto) % Neut % (Auto) % Lymph % (Auto) % Marin % (Auto) % Eos % (Auto) % Baso % (Auto) % Neut # (Auto) (1.4-6.5) K/uL Lymph # (Auto) (1.2-3.4) K/uL Marin # (Auto) (0.11-0.59) K/uL Eos # (Auto) (0-0.5) K/uL Baso # (Auto) (0-0.2) K/uL Immature Gran # (Auto) (0.00-0.02) K/uL ESR (0-30) mm/hr PT 11.9 (9.0-12.0) Seconds INR 1.1 (0.9-1.1) APTT 29.6 (21.0-31.0) Seconds PTT Ratio 1.1 Sodium (136-145) mmol/L Potassium 3.5 Chloride (98-107) mmol/L Carbon Dioxide (21-32) mmol/L Anion Gap (3-11) BUN (6-23) mg/dl Creatinine (0.6-1.2) mg/dl Est Cr Clr Drug Dosing Est GFR ( Amer) ml/min Est GFR (Non-Af Amer) ml/min BUN/Creatinine Ratio (10-20) Glucose (70-99(Fasting)) mg/dl Calcium (8.5-10.1) mg/dl Magnesium (1.7-2.4) mg/dl Total Bilirubin (0.2-1.0) mg/dl AST 18 ALT (7-52) U/L Alkaline Phosphatase (34-104) U/L Troponin I (0-0.04) ng/ml C-Reactive Protein (0-0.5) mg/dl Total Protein (6.0-8.3) gm/dl Albumin (3.4-5.0) gm/dl Globulin (2.5-4.0) gm/dl Albumin/Globulin Ratio (0.9-2) Lipase (11-82) U/L HCG, Qual Negative (Negative) SARS-CoV-2, RNA, NAAT (NEGATIVE) 06/20/21 06/20/21 Range/Units 17:17 19:03 WBC (4.8-10.8) K/uL RBC (4.2-5.4) M/uL Hgb (12.0-16.0) g/dL Hct (37-47) % MCV (80-100) fL MCH (25-34) pg MCHC (32-36) g/dL RDW Std Deviation (36.4-46.3) fL RDW Coeff of Tyra (11.5-14.5) % Plt Count (130-400) K/uL MPV (7.4-10.4) fL Immature Gran % (Auto) % Neut % (Auto) % Lymph % (Auto) % Marin % (Auto) % Eos % (Auto) % Baso % (Auto) % Neut # (Auto) (1.4-6.5) K/uL Lymph # (Auto) (1.2-3.4) K/uL Marin # (Auto) (0.11-0.59) K/uL Eos # (Auto) (0-0.5) K/uL Baso # (Auto) (0-0.2) K/uL Immature Gran # (Auto) (0.00-0.02) K/uL ESR (0-30) mm/hr PT (9.0-12.0) Seconds INR (0.9-1.1) APTT (21.0-31.0) Seconds PTT Ratio Sodium (136-145) mmol/L Potassium Chloride (98-107) mmol/L Carbon Dioxide (21-32) mmol/L Anion Gap (3-11) BUN (6-23) mg/dl Creatinine (0.6-1.2) mg/dl Est Cr Clr Drug Dosing Est GFR ( Amer) ml/min Est GFR (Non-Af Amer) ml/min BUN/Creatinine Ratio (10-20) Glucose (70-99(Fasting)) mg/dl Calcium (8.5-10.1) mg/dl Magnesium 1.4 L (1.7-2.4) mg/dl Total Bilirubin (0.2-1.0) mg/dl AST ALT (7-52) U/L Alkaline Phosphatase (34-104) U/L Troponin I (0-0.04) ng/ml C-Reactive Protein (0-0.5) mg/dl Total Protein (6.0-8.3) gm/dl Albumin (3.4-5.0) gm/dl Globulin (2.5-4.0) gm/dl Albumin/Globulin Ratio (0.9-2) Lipase (11-82) U/L HCG, Qual (Negative) SARS-CoV-2, RNA, NAAT NEGATIVE (NEGATIVE) Administered Medications Discontinued Medications Ceftriaxone Sodium (Rocephin) 1,000 mg in 50 mls @ 100 mls/hr IV NOW STA Stop: 06/20/21 18:09 Last Infusion: 06/20/21 19:36 Dose: 0 mls/hr Documented by: [id number] Admin: 06/20/21 18:59 Dose: 100 mls/hr Documented by: [id number] Potassium Chloride (Potassium Chloride Crtab 20 Meq Tabcr) 40 meq PO NOW STA Stop: 06/20/21 20:24 Last Admin: 06/20/21 20:54 Dose: 40 meq Documented by: [id number] Imaging Data Radiologist's Impression: Chest X-Ray 06/20/21 15:45 XR chest 1V portable CLINICAL HISTORY: Atypical chest pain. COMPARISON STUDY: Chest CT June 09, 2021. FINDINGS: There is no pneumothorax. Trace bilateral pleural effusions are noted. A large hiatal hernia is again noted. Cardiomegaly is unchanged. No evidence for pulmonary edema. Bibasilar opacities favor atelectasis. No consolidation. Numerous subacute to chronic bilateral rib fractures. IMPRESSION: 1. Cardiomegaly without evidence for pulmonary edema. 2. Trace bilateral pleural effusions. 3. Large hiatal hernia. ACT 112: Negative or not required by law. Electronically signed by: Osmel Srivastava M.D. 06/20/2021 4:18 PM00 Venous Doppler Study 06/20/21 15:45 ULTRASOUND BILATERAL LOWER EXTREMITY VENOUS CLINICAL HISTORY: Lower extremity edema. COMPARISON STUDY: Right lower extremity venous ultrasound dated 10/14/2017. TECHNIQUE: Real-time, grayscale, and color Doppler sonography of the deep veins of the right and left lower extremity was performed from the inguinal crease to the calf. Compression and augmentation were utilized. FINDINGS: There is no sonographic evidence of deep venous thrombosis identified in the right or left lower extremity. The common femoral, superficial femoral, and popliteal veins are patent and normally compressible bilaterally. The greater saphenous vein and the profunda femoris vein at the junction with the co mmon femoral vein are clear in both legs. The visualized calf veins are patent bilaterally. There is a complex nonvascular fluid collection the right anterior mid to distal thigh which measures 17.0 x 3.1 x 4.0 cm. A second similar- appearing complex fluid collection in the right anterior upper thigh measures 11.8 x 6.2 x 6.8 cm. Soft tissue edema is present in both calves. IMPRESSION: 1. There is no sonographic evidence of deep venous thrombosis identified in the right or left lower extremity. 2. There are 2 large complex nonvascular fluid collections in the right proximal and mid to distal thigh as detailed above, possibly representing hematomas. The sterility of these fluid collections cannot be assessed by imaging. Clinical correlation will be required and follow-up to resolution is recommended. ACT 112: Negative or not required by law. Electronically signed by: Semaj Luong M.D. 06/20/2021 6:58 PM Discharge Plan Visit Data Chief Complaint: Leg Injury/Pain ED Provider: Kavon Falcon Discharge Problem: Cellulitis, Anemia, Bilateral edema of lower extremity, Hematoma of right lower extremity Patient Disposition: Admitted As Inpatient Discharge Instructions Interventions: ED Discharge Assessment Last Done: 06/20/21 21:23 Discharge Problem: Cellulitis Qualifiers: Site of cellulitis: extremity Site of cellulitis of extremity: lower extremity Laterality: right Qualified Code(s): L03.115 - Cellulitis of right lower limb Anemia Qualifiers: Anemia type: unspecified type Qualified Code(s): D64.9 - Anemia, unspecified Hematoma of right lower extremity Qualifiers: Encounter type: initial encounter Qualified Code(s): S80.11XA - Contusion of right lower leg, initial encounter
[2021-06-20 16:19] LABS: Basophils # (auto) 0.03 K/uL (0-0.2); Basophils % (auto) 0.3 %; Eosinophils # (auto) 0.01 K/uL (0-0.5); Eosinophils % (auto) 0.1 %; Hematocrit (blood only) 29.8 % (37-47); Hemoglobin 9.8 g/dL (12.0-16.0); Immature Granulocytes # (auto) 0.03 K/uL (0.00-0.02); Immature Granulocytes % (auto) 0.3 %; Lymphocytes # (auto) 1.28 K/uL (1.2-3.4); Mean Corpuscular Hemoglobin 35.9 pg (25-34); Mean Corpuscular Hgb Conc 32.9 g/dL (32-36); Mean Corpuscular Volume 109.2 fL (80-100); Mean Platelet Volume 8.2 fL (7.4-10.4); Monocytes # (auto) 1.11 K/uL (0.11-0.59); Monocytes % (auto) 10.4 %; Neutrophils # (auto) 8.18 K/uL (1.4-6.5); Neutrophils % (auto) 76.9 %; Platelet Count 556 K/uL (130-400); RDW Coefficient of Variation 17.5 % (11.5-14.5); RDW Standard Deviation 67.9 fL (36.4-46.3); Red Blood Count 2.73 M/uL (4.2-5.4); White Blood Count 10.64 K/uL (4.8-10.8)
--- NOTE | 2021-06-20 16:19 | XRay Report ---
XR chest 1V portable CLINICAL HISTORY: Atypical chest pain. COMPARISON STUDY: Chest CT June 09, 2021. FINDINGS: There is no pneumothorax. Trace bilateral pleural effusions are noted. A large hiatal herni a is again noted. Cardiomegaly is unchanged. No evidence for pulmonary edema. Bibasilar opacities fav or atelectasis. No consolidation. Numerous subacute to chronic bilateral rib fractures. IMPRESSION: 1. Cardiomegaly without evidence for pulmonary edema. 2. Trace bilateral pleural effusions. 3. Large hiatal hernia. ACT 112: Negative or not required by law. Electronically signed by: Osmel Srivastava M.D. 06/20/2021 4:18 PM00
[2021-06-20 16:40] LABS: INR 1.1 (0.9-1.1); Partial Thromboplastin Ratio 1.1; Partial Thromboplastin Time 29.6 Seconds (21.0-31.0); Prothrombin Time 11.9 Seconds (9.0-12.0)
[2021-06-20 16:43] LABS: Troponin I < 0.03 ng/ml (0-0.04)
[2021-06-20 16:45] LABS: Pregnancy Test, Serum Negative (Negative)
[2021-06-20 17:09] LABS: Alanine Aminotransferase 18 U/L (7-52); Albumin Globulin Ratio 1.1 (0.9-2); Alkaline Phosphatase 188 U/L (34-104); Anion Gap 9 (3-11); BUN Creatinine Ratio 18.6 (10-20); Bilirubin,Total 1.9 mg/dl (0.2-1.0); Blood Urea Nitrogen 13 mg/dl (6-23); Calcium 8.2 mg/dl (8.5-10.1); Carbon Dioxide 28 mmol/L (21-32); Chloride 93 mmol/L (98-107); Est GFR (African American) 93.5 ml/min; Est GFR (Non-African American) 80.7 ml/min; Globulin 2.7 gm/dl (2.5-4.0); Glucose 100 mg/dl (70-99(Fasting)); Lipase 91 U/L (11-82); Sodium 130 mmol/L (136-145); Total Protein 5.7 gm/dl (6.0-8.3)
[2021-06-20] MEDS ORDERED: cefTRIAXone SODIUM 1,000 MG/50 ML BAG IV STA (17:40)
[2021-06-20 17:47] LABS: Potassium 3.5 mmol/L (3.5-5.1)
--- NOTE | 2021-06-20 18:59 | Ultrasound Report ---
ULTRASOUND BILATERAL LOWER EXTREMITY VENOUS CLINICAL HISTORY: Lower extremity edema. COMPARISON STUDY: Right lower extremity venous ultrasound dated 10/14/2017. TECHNIQUE: Real-time, grayscale, and color Doppler sonography of the deep veins of the right and left lower extremity was performed from the inguinal crease to the calf. Compression and augmentation wer e utilized. FINDINGS: There is no sonographic evidence of deep venous thrombosis identified in the right or left lower extremity. The common femoral, superficial femoral, and popliteal veins are patent and normally compressible bilaterally. The greater saphenous vein and the profunda femoris vein at the junction w ith the common femoral vein are clear in both legs. The visualized calf veins are patent bilaterally. There is a complex nonvascular fluid collection the right anterior mid to distal thigh which measure s 17.0 x 3.1 x 4.0 cm. A second similar-appearing complex fluid collection in the right anterior uppe r thigh measures 11.8 x 6.2 x 6.8 cm. Soft tissue edema is present in both calves. IMPRESSION: 1. There is no sonographic evidence of deep venous thrombosis identified in the right or left lower e xtremity. 2. There are 2 large complex nonvascular fluid collections in the right proximal and mid to distal th igh as detailed above, possibly representing hematomas. The sterility of these fluid collections maribel ot be assessed by imaging. Clinical correlation will be required and follow-up to resolution is recom mended. ACT 112: Negative or not required by law. Electronically signed by: Semaj Luong M.D. 06/20/2021 6:58 PM
--- NOTE | 2021-06-20 19:40 | History & Physical Report ---
Date of Service June 20, 2021 Assessment & Plan (1) Hematoma of right lower extremity: Plan: -Progression of swelling, ecchymosis of right leg 2/2 continuation of Eliquis, Hgb dropped from 10.3 to 9.8 from 06/10 to now, 06/20. Pulses intact, no numbness/tingling, no pain, no pallor. Some difficulty raising leg, however in setting of significant edema and recent hip fracture on this side, low suspicion for compartment syndrome. -On 06/09, CT right hip showed > 6cm hematoma along anterior aspect of mid femur, within rectus femoris 2/2 R hip fracture, which was managed nonoperatively. Patient was instructed to stop taking her Eliquis in light of this, however she has continued to take it. -B/l venous Doppler ordered by ED, no evidence of DVT identified in the right or left lower extremity, there are 2 large complex nonvascular fluid collections in the right proximal and mid to distal thigh as detailed above, possibly representing hematomas. -CT pelvis, R hip ordered to further evaluate. -Continue to monitor H/H. Hold Eliquis. -Orthopedics consulted for further evaluation. (2) Bilateral edema of lower extremity: Plan: -RLE edema, ecchymosis 2/2 increasing hematoma as above. -Pt reports a gradual progression of painless LLE edema which is new for her. No recent injury, no calf pain, no DVT seen on doppler. Pulses intact. No evidence of infection, no leukocytosis, no fever, no erythema. ESR, CRP elevated, no reference labs but patient has history of RA according to previous PCP notes. Low suspicion for cellulitis. Ceftriaxone started in ED, will d/c this. (3) PAF (paroxysmal atrial fibrillation): Plan: -Currently tachycardic @ 105, regular rhythm. -Continue diltiazem, flecainide. -Was on Eliquis 5 mg BID however due to hip fracture with hematoma diagnosed 06/09, she was instructed to D/C Eliquis. Patient reported she was unaware of this, has been taking this. (4) Hyponatremia: Plan: -Na+ 130, asymptomatic without nausea/vomiting/weakness/seizure.Suspect chronic hypotonic hypovolemic hyponatremia 2/2 dehydration. -Continue to monitor. (5) Hypertension: Plan: -Stable. -Continue diltiazem. (6) Hypercholesterolemia: Plan: -Stable. -Managed with diet. (7) Hypomagnesemia: Plan: -1.4, will replete. (8) GERD without esophagitis: Plan: -Stable. -Continue PPI. (9) Osteoporosis: Plan: -Patient notes that she had previously been on calcium and vit D, do not see this on her current med list. (10) Depression: Plan: -Stable. -Continue Cymbalta. Plan: -Medsurg with tele. -SCDs, no chemoppx d/t hematoma -Full Code. History of Present Illness Chief Complaint: Bilateral lower extremity edema. Primary Care Provider: Kimber Prater DO Patient is 81 year old female with PMH significant for paroxysmal atrial fibrillation, h/o left hip fracture s/p ORIF in 03/2021, osteoporosis, vitamin D deficiency, HTN, hypercholesterolemia, GERD, depression, h/o right hip replacement and admitted on 06/09 for a closed/mildly displaced right hip fracture managed nonoperatively who presents today with increased lower extremity edema. Patient states she was discharged from the hospital about a week ago after falling at home and fracturing her right hip. At the time there is no surgical intervention recommended. She was instructed to weight-bear as able and to hold her Eliquis, however patient has continued to take Eliquis. She had an appointment with her doctor today to address the swelling in her legs. She had difficulty getting to her appointment, therefore called EMS who instead of bringing her to PCP brought her to ED for further evaluation given the bilateral lower extremity edema and ecchymosis. She reports when she transfers from her wheelchair to a regular chair, she sometimes misses the chair and slides to the ground however no other falls since then. Her legs are without pain, she states she did not even notice the bruising on her right leg, but was concerned about the leaking from her right leg and this is why she wanted to see her PCP today. Additionally, she has some swelling in her left leg started a week ago without injury, states this is unusual for her. She has otherwise felt well, denies fever/chills, fatigue, myalgias, chest pain, palpitations, shortness of breath, PND, orthopnea, new onset cough, abdominal pain, nausea, vomiting, diarrhea, constipation, melena, hematochezia. Allergies Allergy/AdvReac Type Severity Reaction Status Date / Time No Known Allergies Allergy Verified 06/20/21 20:46 Home Medications Medication Instructions Recorded Confirmed Type vitamins A,C,M-pfrp-qrmuov 14,320 1 cap PO QAM 06/30/18 06/20/21 History unit-226 mg-200 unit capsule (PreserVision AREDS) lfiftgdy-nax-yvstx acid 0.4 1 tab PO DAILY 09/10/20 06/20/21 History mg-lycopene 300 mcg-lutein 250 mcg tablet (Centrum Silver) nystatin 100,000 unit/gram topical 1 applic TOPICAL BID #30 g 11/15/20 06/20/21 Rx cream diltiazem HCl 120 mg capsule,24 120 mg PO QAM #90 cap 11/25/20 06/20/21 Rx hr,extended release flecainide 100 mg tablet 100 mg PO Q12H #180 tab 12/25/20 06/20/21 Rx duloxetine 60 mg capsule,delayed 60 mg PO QAM #90 cap 01/21/21 06/20/21 Rx release omeprazole 40 mg capsule,delayed 40 mg PO QAM #90 cap 01/21/21 06/20/21 Rx release oxycodone 5 mg tablet (Roxicodone) 5 mg PO Q8H PRN #30 tab 05/23/21 06/20/21 Rx acetaminophen 500 mg tablet 1,000 mg PO Q6H PRN 06/08/21 06/20/21 History (Tylenol Extra Strength) apixaban 5 mg tablet (Eliquis) 5 mg PO BID 06/20/21 06/20/21 History Past Med/Surg History Medical History Anemia Anxiety Chronic anticoagulation Chronic kidney disease, stage III (moderate) Cystic thyroid nodule Depression Diaphragmatic hernia Diastolic dysfunction Disc degeneration, lumbar Diverticulosis GERD without esophagitis Grief Loss of spouse August 2018 Hypercholesterolemia Hypertension Lumbar spinal stenosis LVH (left ventricular hypertrophy) Macular degeneration Mitral regurgitation MODERATE Osteoarthritis Osteoporosis PAF (paroxysmal atrial fibrillation) Rheumatoid arthritis Right thyroid nodule Scoliosis Vitamin D deficiency Surgical History H/O bilateral oophorectomy B/L SALPINGOOPHORECTOMY= 04/12/17= GRADE VIEW 2, MAC 3, ETT 7.5 AT [facility] History of adenoidectomy History of cataract surgery RIGHT/LEFT History of hysterectomy (1988) History of open reduction and internal fixation (ORIF) procedure (1993) RIGHT ANKLE History of tonsillectomy History of tooth extraction History of total hip arthroplasty RIGHT Knee arthropathy w/ medial meniscus repair in 10/2017 S/P ORIF (open reduction internal fixation) fracture (~03/2021) Left Hip S/P thyroid surgery right thyroid lobectomy Dr. Thornton 01/06/19 Status post arthroscopic partial medial meniscectomy (11/02/17) R knee Family History Father Coronary heart disease Colorectal cancer Kidney disease Lung disease Mother Coronary heart disease Myocardial infarction Gallbladder disease Sister Diabetes Colorectal cancer Denies family history of Ovarian cancer Prostate cancer Breast cancer Social History Smoking Status: Never smoker Second Hand Exposure: Yes; Do You Dip or Chew Tobacco: No; Hx Alcohol Use: Yes Alcohol type: beer Alcohol Intake Frequency: 4 or More x per/Week Hx Substance Use: Yes Last Used Substance: Days (ago) Substance Use Type Other:: Oxycontin Preferred Language: Mongolian Communication Ability: Effective Visual Impairment: No Limitations Hearing Ability: Use of Hearing Aid Cellular Equipment Installer Required: No Beliefs That Will Affect Care: None marital status: / marital status details: passed August 2018 Current Living Situation: Alone Current Living Situation Comment: Caregivers 4 hours per day 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 occupational 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 How many Children do You have: 2 Other Information That Helps Us Care for You: No Feels Safe at Home: Yes Safety Concerns: Feels Safe At This Time Childhood Exposure to Second-Hand Smoke: No Diet Comment: regular caffeine: Yes (1/2 cup a day) during the past year weight has: decreased > 10 lbs Dental Care, Regularly: Yes Physical Activity Frequency: Daily Seatbelt Use: always Sunscreen Use: No Assistive Devices: Walker Review of Systems Review of Systems: Constitutional: No fever, sweats or chills Eyes: No diplopia, no worsening or blurred vision ENT: normal hearing, no trouble swallowing Respiratory: No cough, sputum, dyspnea at rest or on exertion Cardiovascular: No chest pain, tightness or palpitations Abdomen: No pain, nausea, vomiting, diarrhea or constipation Musculoskeletal: progressive swelling of b/l extremities over the past week; denies calf pain, other joint swelling, pain, or loss of sensation Neurologic: No weakness, numbness/tingling, or balance problems Psychiatric: No anxiety or depression Skin: No rash or itch Physical Exam Physical Exam: General: awake, alert, no apparent distress Head: Normocephalic, atraumatic ENT: PERRL, EOMI, no pharyngeal exudate, mucous membranes moist Chest: Clear to auscultation, on room air, no adventitious breath sounds Cardiac: Regular rate and rhythm, no murmur, no JVD, normal peripheral pulses, good capillary refill Abdominal: NABS x 4 quadrants, soft, nontender to palpation, no rebound, guarding or tenderness Extremities: LLE edema; edema, ecchymosis of RLE with puncture site on anterior stewart; pulses intact, no numbness/tingling, no pain, no pallor, no weakness b/l; otherwise normal inspection, no peripheral edema or erythema, calfs nontender to palpation Psych: Normal mood and affect Neuro: AAO x 3, strength intact bilaterally and rated 5/5, no motor deficits, speech is clear, no peripheral sensory deficits Skin: no rash or erythema Results & Data Results & Data ([facility]) Vital Signs (Past 12 Hours) Vital Signs Temp Pulse Pulse Resp BP BP Pulse Ox 06/20/21 19:03 106 H 16 125/79 96 06/20/21 15:47 36.3 C L 101 H 101 H 20 120/64 120/64 99 Laboratory Results Abnormal lab results 06/20/21 06/20/21 06/20/21 Range/Units 15:58 15:58 15:58 RBC 2.73 L (4.2-5.4) M/uL Hgb 9.8 L (12.0-16.0) g/dL Hct 29.8 L (37-47) % MCV 109.2 H (80-100) fL MCH 35.9 H (25-34) pg RDW Std Deviation 67.9 H (36.4-46.3) fL RDW Coeff of Tyra 17.5 H (11.5-14.5) % Plt Count 556 H (130-400) K/uL Neut # (Auto) 8.18 H (1.4-6.5) K/uL Dickenson # (Auto) 1.11 H (0.11-0.59) K/uL Immature Gran # (Auto) 0.03 H (0.00-0.02) K/uL ESR 37 H (0-30) mm/hr Sodium 130 L (136-145) mmol/L Chloride 93 L (98-107) mmol/L Glucose 100 H (70-99(Fasting)) mg/dl Calcium 8.2 L (8.5-10.1) mg/dl Magnesium (1.7-2.4) mg/dl Total Bilirubin 1.9 H (0.2-1.0) mg/dl Alkaline Phosphatase 188 H (34-104) U/L C-Reactive Protein 12.30 H (0-0.5) mg/dl Total Protein 5.7 L (6.0-8.3) gm/dl Albumin 3.0 L (3.4-5.0) gm/dl Lipase 91 H (11-82) U/L 06/20/21 Range/Units 17:17 RBC (4.2-5.4) M/uL Hgb (12.0-16.0) g/dL Hct (37-47) % MCV (80-100) fL MCH (25-34) pg RDW Std Deviation (36.4-46.3) fL RDW Coeff of Tyra (11.5-14.5) % Plt Count (130-400) K/uL Neut # (Auto) (1.4-6.5) K/uL Dickenson # (Auto) (0.11-0.59) K/uL Immature Gran # (Auto) (0.00-0.02) K/uL ESR (0-30) mm/hr Sodium (136-145) mmol/L Chloride (98-107) mmol/L Glucose (70-99(Fasting)) mg/dl Calcium (8.5-10.1) mg/dl Magnesium 1.4 L (1.7-2.4) mg/dl Total Bilirubin (0.2-1.0) mg/dl Alkaline Phosphatase (34-104) U/L C-Reactive Protein (0-0.5) mg/dl Total Protein (6.0-8.3) gm/dl Albumin (3.4-5.0) gm/dl Lipase (11-82) U/L Diagnostic Findings Chest X-Ray 06/20/21 15:45 XR chest 1V portable CLINICAL HISTORY: Atypical chest pain. COMPARISON STUDY: Chest CT June 09, 2021. FINDINGS: There is no pneumothorax. Trace bilateral pleural effusions are noted. A large hiatal hernia is again noted. Cardiomegaly is unchanged. No evidence for pulmonary edema. Bibasilar opacities favor atelectasis. No consolidation. Numerous subacute to chronic bilateral rib fractures. IMPRESSION: 1. Cardiomegaly without evidence for pulmonary edema. 2. Trace bilateral pleural effusions. 3. Large hiatal hernia. ACT 112: Negative or not required by law. Electronically signed by: Osmel Srivastava M.D. 06/20/2021 4:18 PM00 Venous Doppler Study 06/20/21 15:45 ULTRASOUND BILATERAL LOWER EXTREMITY VENOUS CLINICAL HISTORY: Lower extremity edema. COMPARISON STUDY: Right lower extremity venous ultrasound dated 10/14/2017. TECHNIQUE: Real-time, grayscale, and color Doppler sonography of the deep veins of the right and left lower extremity was performed from the inguinal crease to the calf. Compression and augmentation were utilized. FINDINGS: There is no sonographic evidence of deep venous thrombosis identified in the right or left lower extremity. The common femoral, superficial femoral, and popliteal veins are patent and normally compressible bilaterally. The greater saphenous vein and the profunda femoris vein at the junction with the common femoral vein are clear in both legs. The visualized calf veins are patent bilaterally. There is a complex nonvascular fluid collection the right anterior mid to distal thigh which measures 17.0 x 3.1 x 4.0 cm. A second similar- appearing complex fluid collection in the right anterior upper thigh measures 1 1.8 x 6.2 x 6.8 cm. Soft tissue edema is present in both calves. IMPRESSION: 1. There is no sonographic evidence of deep venous thrombosis identified in the right or left lower extremity. 2. There are 2 large complex nonvascular fluid collections in the right proximal and mid to distal thigh as detailed above, possibly representing hematomas. The sterility of these fluid collections cannot be assessed by imaging. Clinical correlation will be required and follow-up to resolution is recommended. ECG Additional Comments: Sinus tachycardia, septal infarct, age undetermined ST & T wave abnormality, consider lateral ischemia Abnormal ECG When compared with ECG of 09-JUN-2021 12:41, AL interval has decreased Septal infarct is now Present Code Status & VTE Plan Code Status Full Code. Supervising Physician Co-Signing Physician Notes Attending addendum: I have physically seen this patient, have supervised the SANDY's activities, and agree with the H&P unless as otherwise noted. Assessment and Plan: Right lower extremity complex fluid collection/hematoma- Previously 6 cm hematoma noted on CT right hip on 06/09, with right hip fracture, managed nonsurgically Hemoglobin has dropped approximately 5 g in the last month Order CT pelvis and hip to further characterize potential blood loss areas Patient was advised to stop Eliquis after initial injury, however, must have misunderstood directions and continue to take Eliquis Advised to hold Eliquis at this time Current orthopedic surgery Bilateral lower extremity edema- Ordering CT pelvis to assess for possible IVC compression Give Lasix 40 mg IV x1 and follow response Paroxysmal atrial fibrillation- In sinus rhythm at this time Continue diltiazem and flecainide Hold Eliquis as noted above Remaining orders and notations as noted PG Care Time/CCT Total # of Minutes Spent Total Time Spent with Patient: Total time spent is greater than 50% in coordination of care (as documented) at patient's floor/unit and/or counseling patient: Coding Level of Care Code 59573 Initial Inpt Care Lvl 3 Diagnoses Bilateral edema of lower extremity R60.0 Hematoma of right lower extremity S80.11XA Encounter type: initial encounter PAF (paroxysmal atrial fibrillation) I48.0 Osteoporosis M81.0 Hypertension I10 Hypercholesterolemia E78.00 GERD without esophagitis K21.9 Depression F32.9 Hyponatremia E87.1 Hypomagnesemia E83.42 (1) Hematoma of right lower extremity Encounter type: initial encounter Qualified Code(s): S80.11XA - Contusion of right lower leg, initial encounter
[2021-06-20] MEDS ORDERED: POTASSIUM CHLORIDE CRTAB 20 MEQ TABCR PO STA (20:23)
[2021-06-20] MEDS ORDERED: POLYETHYLENE (MIRALAX) 17 GM PACK PO PRN (21:47)
[2021-06-20] MEDS ORDERED: ONDANSETRON INJ 2 MG/ML 2 ML VIAL IV PRN (21:47)
[2021-06-20] MEDS ORDERED: FUROSEMIDE 40 MG/4 ML VIAL IV ONE (22:15)
--- NOTE | 2021-06-20 22:54 | Electrocardiogram Report ---
Test Reason : Blood Pressure : / mmHG Vent. Rate : 102 BPM Atrial Rate : 102 BPM P-R Int : 112 ms QRS Dur : 098 ms QT Int : 346 ms P-R-T Axes : 076 -21 135 degrees QTc Int : 450 ms Sinus tachycardia Septal infarct , age undetermined Abnormal ECG When compared with ECG of 09-JUN-2021 12:41, AR interval has decreased Septal infarct is now Present Confirmed by Atif Pryor ([id number]) on 06/20/2021 10:53:45 PM Referred By: Kimber Prater Confirmed By:Atif Pryor
--- NOTE | 2021-06-20 22:57 | CT Scan Report ---
CT SCAN OF THE BONY PELVIS; CT SCAN OF THE RIGHT HIP WITHOUT IV CONTRAST CLINICAL HISTORY: Rectus femoris hematoma. COMPARISON STUDY: Pelvic CT dated 01/13/2021. CT scan of the right hip dated 06/09/2021. Radiographs o f the right hip and bony pelvis dated 06/08/2021. TECHNIQUE: CT scan of the pelvis is performed from the pelvic inlet to the proximal femora and the C T scan of the right hip is performed from the bony pelvis to the femoral shaft. Images for both exami nations are reviewed in the axial, sagittal, and coronal planes. IV contrast was not administered for this examination. A dose lowering technique was utilized adhering to the principles of ALARA. The e xamination is degraded by large lytic hardware in both hips. CT DOSE: 1031.01 mGy.cm FINDINGS: The skeletal structures are osteopenic. Lumbosacral spondylosis and scoliosis is partially visualized. There is an acute to subacute fracture through the left aspect of the L4 vertebral body. This is best seen on coronal image #52. This is new from 01/13/2021. There is subacute fracture of th e left proximal femur with intertrochanteric and intramedullary nails in place. There are subacute fr actures of the right pubic ring and the sacrum. Again seen is an acute to subacute periprosthetic fra cture of the right proximal femur which extends through the greater trochanter. Alignment is unchange d from 06/09/2021. No new fracture is identified. No lytic or blastic lesion is seen. Again seen is a r ectus femoris hematoma along the anterior aspect of the right femoral fracture. This measures approxi mately 10 x 4 x 7 cm on today's examination, and is similar in size to the 06/09/2021 examination. Ther e is also likely trace intramuscular hemorrhage within the right iliacus muscle. There is generalized atrophy of the regional musculature. The pelvic viscera is not well assessed due to streak artifact. The bladder is grossly unremarkable. The uterus is surgically absent. There is moderate to advanced diverticulosis of the visualized left colon without CT evidence of acute diverticulitis. No free flui d is seen in the cul-de-sac. Atherosclerotic calcification is noted in the abdominal aorta and iliac arteries. No pelvic sidewall or inguinal adenopathy is identified. Soft tissue contusion overlies the right proximal femur. IMPRESSION: 1. Again seen is an acute to subacute periprosthetic fracture of the right proximal femur. Alignment is unchanged. 2. There is an acute to subacute fracture through the left aspect of the L4 vertebral body which is n ew from 01/13/2021. 3. There is a subacute fracture of the left proximal femur with intertrochanteric and intramedullary nails in place. 4. Again seen are subacute/healing fractures the right pubic ring and the sacrum. 5. A rectus femoris hematoma measures up to 10 cm and is similar in size to the 06/09/2021 examination. 6. There is also likely trace intramuscular hemorrhage within the right iliacus muscle. 7. Soft tissue contusion overlies the right hip. 8. Pelvic viscera is normal as visualized. 9. Advanced sigmoid diverticulosis without CT evidence of acute diverticulitis. ACT 112: Negative or not required by law. Electronically signed by: Semaj Luong M.D. 06/20/2021 10:54 PM
[2021-06-20] MEDS: FLECAINIDE ACETATE 100 MG TABLET PO SCH (23:06)
[2021-06-20] MEDS: MAGNESIUM SULFATE / D5W 1 GM/100 ML BAG IV SCH (23:07)
[2021-06-20] MEDS ORDERED: INFLUENZA VACCINE HIGH DOSE PF 65+ 0.7 ML SYR IM ONE (23:43)
[2021-06-21] MEDS ORDERED: COUGH DROP (SUGAR FREE) LOZ 24 LOZ/1 BOX BUCCAL PRN (00:57)
[2021-06-21] MEDS: ACETAMINOPHEN 325 MG TAB PO PRN ×3 (01:12→09:24)
[2021-06-21] MEDS: MAGNESIUM SULFATE / D5W 1 GM/100 ML BAG IV SCH ×3 (01:13→05:15)
[2021-06-21 05:46] LABS: Basophils # (auto) 0.02 K/uL (0-0.2); Basophils % (auto) 0.3 %; Eosinophils # (auto) 0.03 K/uL (0-0.5); Eosinophils % (auto) 0.4 %; Hemoglobin 8.3 g/dL (12.0-16.0); Immature Granulocytes # (auto) 0.03 K/uL (0.00-0.02); Immature Granulocytes % (auto) 0.4 %; Lymphocytes # (auto) 1.29 K/uL (1.2-3.4); Lymphocytes % (auto) 17.7 %; Mean Corpuscular Hemoglobin 36.1 pg (25-34); Mean Corpuscular Hgb Conc 33.2 g/dL (32-36); Mean Corpuscular Volume 108.7 fL (80-100); Mean Platelet Volume 7.9 fL (7.4-10.4); Monocytes # (auto) 1.01 K/uL (0.11-0.59); Monocytes % (auto) 13.9 %; Neutrophils # (auto) 4.91 K/uL (1.4-6.5); Neutrophils % (auto) 67.3 %; Platelet Count 519 K/uL (130-400); RDW Coefficient of Variation 17.6 % (11.5-14.5); RDW Standard Deviation 68.8 fL (36.4-46.3); White Blood Count 7.29 K/uL (4.8-10.8)
[2021-06-21 06:04] LABS: BUN Creatinine Ratio 18.3 (10-20); Calcium 7.8 mg/dl (8.5-10.1); Creatinine Clr Calc Pharmacy 66.2 ml/min; Est GFR (African American) 98.4 ml/min; Est GFR (Non-African American) 84.9 ml/min; Magnesium 2.3 mg/dl (1.7-2.4); Potassium 3.8 mmol/L (3.5-5.1)
[2021-06-21] MEDS: dilTIAZem ER 120 MG CAPCR PO SCH (07:40)
[2021-06-21] MEDS: PANTOprazole 40 MG TAB PO SCH (07:40)
[2021-06-21] MEDS: DULoxetine HCL 60 MG CAP PO SCH (07:40)
[2021-06-21] MEDS: FLECAINIDE ACETATE 100 MG TABLET PO SCH ×2 (07:40→20:12)
--- NOTE | 2021-06-21 09:40 | XRay Report ---
XR pelvis 1-2V routine CLINICAL HISTORY: Bilateral hip pain. COMPARISON: Pelvis radiograph May 27, 2021. CT of the right hip and pelvis June 20, 2021. FINDINGS: Note is made of an acute to subacute displaced periprosthetic fracture of the right femur which extends through the greater trochanter. Healing right pubic ring fractures are noted. There is also a healing intertrochanteric fracture of the left femur status post internal fixation. Sacroiliac joints and symphysis pubis are intact. Left hip joint space narrowing with osteophytosis is present. IMPRESSION: 1. Acute to subacute displaced periprosthetic fracture of the right femur which extends through the g reater trochanter. 2. Healing intertrochanteric fracture of the left femur status post internal fixation. 2. Subacute to chronic right pubic ring fractures. ACT 112: Negative or not required by law. Electronically signed by: Osmel Srivastava M.D. 06/21/2021 9:38 AM
--- NOTE | 2021-06-21 09:41 | XRay Report ---
XR hip RT min 2V CLINICAL HISTORY: Right hip pain. COMPARISON: Radiographs June 08, 2021. CT of the right hip June 20, 2021. FINDINGS: Note is made of an acute to subacute periprosthetic fracture of the right femur which exte nds through the greater trochanter. Fracture is displaced 1.6 cm. Fracture displacement has increased since exam of June 08, 2021. No definite extension to the lesser trochanter is noted. Healing right pubic ring fractures are present. IMPRESSION: Acute to subacute displaced periprosthetic fracture of the right femur which extends thro ugh the greater trochanter, as described above. ACT 112: Negative or not required by law. Electronically signed by: Osmel Srivastava M.D. 06/21/2021 9:40 AM
--- NOTE | 2021-06-21 09:46 | XRay Report ---
XR hip LT min 2V CLINICAL HISTORY: [Pain and COMPARISON: Pelvis radiograph May 27, 2021. CT of the pelvis June 20, 2021. FINDINGS: Healing intertrochanteric fracture of the left femur is noted status post internal fixatio n. Hardware is intact. Postoperative appearance is unchanged. No acute fracture within the left femur is present. IMPRESSION: Healing intertrochanteric fracture of the left femur with no change in alignment status p ost internal fixation. Hardware intact. ACT 112: Negative or not required by law. Electronically signed by: Osmel Srivastava M.D. 06/21/2021 9:45 AM
--- NOTE | 2021-06-21 11:17 | Hospitalist Progress Note ---
Date of Service June 21, 2021 Assessment & Plan (1) Hematoma of right lower extremity: Plan: -Progression of swelling, ecchymosis of right leg 2/2 continuation of Eliquis, Hgb dropped from 10.3 to 9.8 from 06/10 to now, 06/20. Pulses intact, no numbness/tingling, no pain, no pallor. Some difficulty raising leg, however in setting of significant edema and recent hip fracture on this side, low suspicion for compartment syndrome. -On 06/09, CT right hip showed > 6cm hematoma along anterior aspect of mid femur, within rectus femoris 2/2 R hip fracture, which was managed nonoperatively. Patient was instructed to stop taking her Eliquis in light of this, however she has continued to take it. Rectus sheath hematoma similar in size to 06/[address] - likely trace intramuscular hemorrhage within the right iliacus muscle -B/l venous Doppler ordered by ED, no evidence of DVT identified in the right or left lower extremity, there are 2 large complex nonvascular fluid collections in the right proximal and mid to distal thigh (There is a complex nonvascular fluid collection the right anterior mid to distal thigh which measures 17.0 x 3.1 x 4.0 cm. A second similar-appearing complex fluid collection in the right anterior upper thigh measures 11.8 x 6.2 x 6.8 cm.) -Appreciate orthopedic review - can continue weight bearing as tolerated using a walker -Continue to monitor H/H, repeat Hgb this afternoon given drop to 8.3. Hold E liquis. (2) Bilateral edema of lower extremity: Plan: -RLE edema, ecchymosis 2/2 increasing hematoma as above. -Pt reports a gradual progression of painless LLE edema which is new for her. No recent injury, no calf pain, no DVT seen on doppler. Pulses intact. No evidence of infection, no leukocytosis, no fever, no erythema. ESR, CRP elevated, no reference labs but patient has history of RA according to previous PCP notes. Low suspicion for cellulitis. Ceftriaxone started in ED, will d/c this. (3) PAF (paroxysmal atrial fibrillation): Plan: -Currently in NSR on telemetry -Continue diltiazem, flecainide. -Was on Eliquis 5 mg BID however due to hip fracture with hematoma diagnosed 06/09, she was instructed to D/C Eliquis. Patient reported she was unaware of this, has been taking this. (4) Hyponatremia: Plan: -Na+ 130, asymptomatic without nausea/vomiting/weakness/seizure.Suspect chronic hypotonic hypovolemic hyponatremia 2/2 dehydration. -Continue to monitor. (5) Hypertension: Plan: -Stable. -Continue diltiazem. (6) Hypercholesterolemia: Plan: -Stable. -Managed with diet. (7) Hypomagnesemia: Plan: -1.4, Mg sulphate 4g IV given yesterday. Repeat level 2.3 (8) GERD without esophagitis: Plan: -Stable. -Continue PPI (omeprazole switched to pantoprazole per hospital formulary (9) Osteoporosis: Plan: -Patient notes that she had previously been on calcium and vit D, do not see this on her current med list. Vit D level 70 ng/ml WNL (10) Depression: Plan: -Stable. -Continue Cymbalta. Plan: -Medsurg with tele. -SCDs, no chemoppx d/t hematoma -Full Code Admission and Anticipated Discharge Date Admission Date: June 20, 2021 Subjective Hemoglobin dropped from 9.8 to 8.3 overnight. No shortness of breath, chest pain or dizziness. No new pain in her hip. No fever or chills. Not yet been out of bed with physical therapy. Review of Systems Review of Systems: All systems reviewed & are unremarkable except as noted in Subjective Physical Exam Constitutional: WD/WN, vitals as above Eyes: + anicteric sclerae; normal pupil size Respiratory: normal respiratory effort, lungs clear to auscultation Cardiovascular: Rate/Rhythm: regular rate and regular rhythm Heart Sounds: no murmur Extremities: normal capillary refill, + calf tenderness (right) and + pedal edema (1+ edema left leg, 2+ right leg) Skin: + ecchymosis (extensive right leg with small <1cm area weeping serous fluid) Neurologic: moves all extremities and awake; not confused Motor/Sensory: no sensory deficit Psychiatric: A+Ox3, euthymic affect Results & Data Results & Data ([facility]) Vital Signs (Past 12 Hours) Vital Signs Temp Pulse Pulse Resp BP Pulse Ox 06/21/21 10:50 36.4 C L 80 18 113/64 95 06/21/21 07:46 89 06/21/21 07:40 36.4 C L 87 18 134/75 93 06/21/21 03:43 36.6 C 99 H 18 130/78 96 06/21/21 01:09 102 H 06/20/21 23:44 103 H PG Care Time/CCT Total # of Minutes Spent Total Time Spent with Patient: Total time spent is greater than 50% in coordination of care (as documented) at patient's floor/unit and/or counseling patient: Coding Level of Care Code 20046 Subseq Hosp Care Lvl 2 Diagnoses Hematoma of right lower extremity S80.11XA Encounter type: initial encounter Bilateral edema of lower extremity R60.0 PAF (paroxysmal atrial fibrillation) I48.0 Hyponatremia E87.1 Hypertension I10 Hypercholesterolemia E78.00 Hypomagnesemia E83.42 GERD without esophagitis K21.9 Osteoporosis M81.0 Depression F32.9 (1) Hematoma of right lower extremity Encounter type: initial encounter Qualified Code(s): S80.11XA - Contusion of right lower leg, initial encounter
--- NOTE | 2021-06-21 12:29 | Progress Notes ---
DATE OF SERVICE: 06/21/2021. SUBJECTIVE: The patient is 81 years old. She fell and broke her left hip around March and is goldy abilitating from that. She had a right total hip done about [address] Kirk. Approxim ately 2 weeks ago, she fell and sustained a [place] A type periprosthetic fracture. This is a nond isplaced or minimally displaced fracture of the right hip greater trochanter with a stable implant. She was seen by Dr. Castillo and treatment was recommended. She was to be weightbearing as tolerated with a walker, which she has been doing. She is also on Eliquis. She was advised to stop the medica tion, but for some reason had kept taking it. She came to the ER yesterday because of increased swel ling in the right leg and weeping from her calf. She has no known drug allergies. Her past medical history is noted and reviewed. Her medications are noted. OBJECTIVE: On exam, I do not feel any pedal pulses in the left leg, but her foot is warm without any acute ischemia, and she has 5/5 ankle and toe plantar flexion, dorsiflexion, inversion and eversion strength with intact sensation and 1+ edema. She can lift her heel off the bed and bend her knee abo ut 60 degrees. The left leg is nontender to palpation and her surgical incision is healed. On the right leg, she has 2+ edema with extensive bruising and redness. Dorsalis pedis 1+. Sensatio n intact. Motor function 5/5. She again can lift her heel up off the bed and bend her knee about 60 degrees. The calf is nontender. Her thigh is mildly uncomfortable and she has no tenderness over t he greater trochanter. I do not palpate any large discrete fluid collections. X-rays and CT scans are reviewed. She does have a hematoma of her right thigh area, which is likely secondary to bleeding related to her fracture. There is a minimally displaced greater trochanteric f racture and a stable right total hip arthroplasty. She has a healing left intertrochanteric fracture with a short troch nail in place. There is evidence of an age indeterminate right pubic fracture. ASSESSMENT: 1. Status post internal fixation of left hip fracture. 2. Subacute right hip [place] A periprosthetic fracture. PLAN: She may weightbear as tolerated with a walker as outlined by Dr. Castillo previously. Apply ic e to the right hip area. Elevate the right leg. Apply MANSI hose stockings. I would recommend holdin g her blood thinner for the time being. The resolving hematoma is causing extensive inflammation in t he leg and swelling. Apply Optifoam to the right leg area. There is a pinpoint area on the anterior aspect of the right leg, which is draining a little bit of s erous fluid secondary to generalized swelling of the limb. She can follow up with Orthopedics as scheduled. Job ID: [id number]
[2021-06-21 17:12] LABS: Hematocrit (blood only) 26.1 % (37-47); Hemoglobin 8.9 g/dL (12.0-16.0)
[2021-06-21] MEDS ORDERED: oxyCODONE HCL IR 5 MG TAB (IMMEDIATE RELEASE) PO PRN (23:47)
[2021-06-22 07:49] LABS: Hematocrit (blood only) 27.1 % (37-47); Mean Corpuscular Hemoglobin 36.7 pg (25-34); Mean Corpuscular Hgb Conc 33.2 g/dL (32-36); Mean Corpuscular Volume 110.6 fL (80-100); Mean Platelet Volume 7.8 fL (7.4-10.4); Platelet Count 493 K/uL (130-400); RDW Coefficient of Variation 17.7 % (11.5-14.5); RDW Standard Deviation 71.4 fL (36.4-46.3); Red Blood Count 2.45 M/uL (4.2-5.4); White Blood Count 7.03 K/uL (4.8-10.8)
[2021-06-22] MEDS: dilTIAZem ER 120 MG CAPCR PO SCH (08:06)
[2021-06-22] MEDS: DULoxetine HCL 60 MG CAP PO SCH (08:06)
[2021-06-22] MEDS: PANTOprazole 40 MG TAB PO SCH (08:06)
[2021-06-22] MEDS: FLECAINIDE ACETATE 100 MG TABLET PO SCH (08:06)
[2021-06-22 08:19] LABS: Albumin Globulin Ratio 1.1 (0.9-2); Albumin Level 2.7 gm/dl (3.4-5.0); BUN Creatinine Ratio 17.2 (10-20); Calcium 8.3 mg/dl (8.5-10.1); Creatinine Clr Calc Pharmacy 62.2 ml/min; Est GFR (African American) 96.3 ml/min; Est GFR (Non-African American) 83.1 ml/min; Globulin 2.5 gm/dl (2.5-4.0); Potassium 4.5 mmol/L (3.5-5.1); Total Protein 5.2 gm/dl (6.0-8.3)
--- NOTE | 2021-06-22 12:10 | Discharge Summary ---
Date of Service June 22, 2021 Admission HPI Per Admitting Provider Patient is 81 year old female with PMH significant for paroxysmal atrial fibrillation, h/o left hip fracture s/p ORIF in 03/2021, osteoporosis, vitamin D deficiency, HTN, hypercholesterolemia, GERD, depression, h/o right hip replacement and admitted on 06/09 for a closed/mildly displaced right hip fracture managed nonoperatively who presents today with increased lower extremity edema. Patient states she was discharged from the hospital about a week ago after falling at home and fracturing her right hip. At the time there is no surgical intervention recommended. She was instructed to weight-bear as able and to hold her Eliquis, however patient has continued to take Eliquis. She had an appointment with her doctor today to address the swelling in her legs. She had difficulty getting to her appointment, therefore called EMS who instead of bringing her to PCP brought her to ED for further evaluation given the bilateral lower extremity edema and ecchymosis. She reports when she transfers from her wheelchair to a regular chair, she sometimes misses the chair and slides to the ground however no other falls since then. Her legs are without pain, she states she did not even notice the bruising on her right leg, but was concerned about the leaking from her right leg and this is why she wanted to see her PCP today. Additionally, she has some swelling in her left leg started a week ago without injury, states this is unusual for her. She has otherwise felt well, denies fever/chills, fatigue, myalgias, chest pain, palpitations, shortness of breath, PND, orthopnea, new onset cough, abdominal pain, nausea, vomiting, diarrhea, constipation, melena, hematochezia. Principal Diagnosis L4 vertebral fracture Right periprosthetic hip fracture Fall Discharge Exam Constitutional WD/WN, vitals as above Eyes + anicteric sclerae; normal pupil size Respiratory normal respiratory effort, lungs clear to auscultation Cardiovascular Rate/Rhythm: regular rate and regular rhythm Heart Sounds: no murmur Extremities: normal capillary refill, + calf tenderness (right) and + pedal edema (1+ edema left leg, 2+ right leg) Skin + ecchymosis (extensive right leg with small <1cm area weeping serous fluid) Neurologic moves all extremities and awake; not confused Motor/Sensory: no sensory deficit Psychiatric A+Ox3, euthymic affect Discharge Data Allergies Allergy/AdvReac Type Severity Reaction Status Date / Time No Known Allergies Allergy Verified 06/20/21 20:46 Consultations 06/20/21 19:16 ED Decision to Admit Stat 06/20/21 20:39 Consult Orthopedic Surgery Routine Ordered Studies 06/20/21 15:45 US venous doppler LE BI Stat IMPRESSION: 1. There is no sonographic evidence of deep venous thrombosis identified in the right or left lower extremity. 2. There are 2 large complex nonvascular fluid collections in the right proximal and mid to distal thigh as detailed above, possibly representing hematomas. The sterility of these fluid collections cannot be assessed by imaging. Clinical correlation will be required and follow-up to resolution is recommended. 06/20/21 20:39 CT hip RT wo con Stat IMPRESSION: Healing intertrochanteric fracture of the left femur with no change in alignment status post internal fixation. Hardware intact. CT pelvis wo con Stat IMPRESSION: 1. Again seen is an acute to subacute periprosthetic fracture of the right proximal femur. Alignment is unchanged. 2. There is an acute to subacute fracture through the left aspect of the L4 vertebral body which is new from 01/13/2021. 3. There is a subacute fracture of the left proximal femur with intertrochanteric and intramedullary nails in place. 4. Again seen are subacute/healing fractures the right pubic ring and the sacrum. 5. A rectus femoris hematoma measures up to 10 cm and is similar in size to the 06/09/2021 examination. 6. There is also likely trace intramuscular hemorrhage within the right iliacus muscle. 7. Soft tissue contusion overlies the right hip. 8. Pelvic viscera is normal as visualized. 9. Advanced sigmoid diverticulosis without CT evidence of acute diverticulitis. Hospital Course (1) Hematoma of right lower extremity: Brionna Carvajal is an 81 year old female admitted at [facility] from June 20 - 2021 due to leg swelling and fall (slipped off chair). She was recently discharged on June 10 against medical advice for a periprosthetic right hip fracture that was treated non-operatively. It was recommended she be discharged to inpatient rehabilitation due to ongoing high falls risk but she refused and left against medical advice. On this occasion she was diagnosed with acute lumbar spine fracture L4 vertebral body (new this admission) and subacute periprosthetic fracture of the right proximal femur seen on prior admission and rectus femoris hematoma(similar in size to June [address]) and right intramuscular right iliacus hemorrhage. She had been taking Eliquis at home despite being told to stop this. Eliquis was held. Her hemoglobin trended down but appears to have stabilized around 9 g/dL without the need for a blood transfusion. Recommend CBC and BMP in 1 week which has been ordered. For her leg swelling she has no history of congestive heart failure and US venous doppler was negative for DVT. She was given Lasix 40mg IV which appeared to be of some benefit therefore she was started on Lasix 20mg PO every other day on discharge however it is not clear she needs this longer term. It was highly recommend to go to inpatient rehabilitation however she refused this advice again and was determined to have capacity to make this decision therefore she signed out against medical advice. (2) Bilateral edema of lower extremity: (3) PAF (paroxysmal atrial fibrillation): (4) Hyponatremia: (5) Hypertension: (6) Hypercholesterolemia: (7) Hypomagnesemia: (8) GERD without esophagitis: (9) Osteoporosis: (10) Depression: Total Time Total Time Spent Total Time Spent (In Minutes): 40 Discharge Plan Discharge Items Patient Disposition: Against Medical Advice Reason For Visit: LEG INJURY Activity: Per Instructions section Activity Comment: weightbearing as tolerated with a walker with your right leg Non-emergency contact: Primary Care Provider Follow-up/Referrals: Kimber Prater DO [Primary Care Provider] - Ambulatory Orders: Basic Metabolic Panel (Routine) Timeframe: 20210625 Location: Determined by Patient Ordered By: Peyman Bass Complete Blood Count no Diff (Routine) Timeframe: 20210625 Location: Determined by Patient Ordered By: Peyman Bass [employer]tl [employer] Department Chair Provider Instructions: You were admitted at [facility] from June 20 - 2021 due to leg swelling and fall. You were diagnosed with acute lumbar spine fracture L4 vertebral body (new this admission) and subacute periprosthetic fracture of the right proximal femur seen on prior admission. Rectus femoris (muscle) hematoma - similar in size to June 09 imaging and right intramuscular right iliacus hemorrhage. For this your hemoglobin was serially measured and appears to be stable around 9 g/dL. Please follow up with orthopedics as previously arranged as when to restart on this. For your leg swelling you were started no furosemide 20mg every other day. Please repeat labs tests in approximately 1 week to assess you kidney function and hemoglobin as ordered. It was highly recommend to go to inpatient rehabilitation however you refused this advice and decided to sign out against medical advice. Please return to the ER if you have recurrent falls or worsening swelling. Pending Studies at Discharge: No Stand-Alone Forms: My [facility], Smoking Cessation Medications and DC Order Prescriptions: New furosemide 20 mg tablet 20 mg PO Q OTHER DAY Qty: 14 RF: 0 Continued diltiazem HCl 120 mg capsule,extended release 24 hr 120 mg PO QAM Qty: 90 RF: 1 flecainide 100 mg tablet 100 mg PO Q12H Qty: 180 RF: 1 duloxetine 60 mg capsule,delayed release(DR/EC) 60 mg PO QAM Qty: 90 RF: 1 omeprazole 40 mg capsule,delayed release(DR/EC) 40 mg PO QAM Qty: 90 RF: 1 nystatin 100,000 unit/gram cream 1 applic topical BID Qty: 30 RF: 0 Centrum Silver 0.4-300-250 mg-mcg-mcg tablet 1 tab PO DAILY RF: 0 oxycodone [Roxicodone] 5 mg tablet 5 mg PO Q8H PRN (Reason: pain) Qty: 30 RF: 0 PreserVision AREDS 14,320-226-200 [id number] Capsule 1 cap PO QAM RF: 0 acetaminophen [Tylenol Extra Strength] 500 mg Tablet 1,000 mg PO Q6H PRN (Reason: Pain) RF: 0 Discontinued Eliquis 5 mg tablet 5 mg PO BID RF: 0 Discharge Orders: Left Against Medical Advice (Routine); Ordered 06/22/21 Ordered By: Peyman Bass Admission Data Admit Date/Time: 06/20/21 20:18 Attending Provider: Peyman Bass Admit Provider: Mesfin Srinivasan Primary Care Provider: Kimber Prater Other Providers: Mesfin Srinivasan ; Juan Ag ; Tiffany Laws ; Selvin Mathis ; Merly Watson ; Waldo Flores ; Amy Cruz ; Ginette Hussein ; Balwinder Mack ; Elliot Farias ; Etienne Alicia ; Etienne Castillo Other Interventions: Discharge Summary Assessment (RN) Last Done: 06/22/21 12:15 Coding Level of Care Code D/C DAY MANAGEMENT >30 MINS Diagnoses Hematoma of right lower extremity S80.11XA Encounter type: initial encounter Bilateral edema of lower extremity R60.0 PAF (paroxysmal atrial fibrillation) I48.0 Hyponatremia E87.1 Hypertension I10 Hypercholesterolemia E78.00 Hypomagnesemia E83.42 GERD without esophagitis K21.9 Osteoporosis M81.0 Depression F32.9
== END 2021-06-22 01:45 | disposition left against medical advice (07) | DRG 551 ==
LOC: ED 15:34 → 2N 20:18 → SUATTDRO 20:18 → 2N 21:23

== ENCOUNTER 2021-06-30 14:10 | Observation (INO) ==
[2021-06-30 14:54] LABS: Basophils # (auto) 0.04 K/uL (0-0.2); Basophils % (auto) 0.4 %; Eosinophils # (auto) 0.01 K/uL (0-0.5); Eosinophils % (auto) 0.1 %; Hematocrit (blood only) 34.6 % (37-47); Hemoglobin 11.2 g/dL (12.0-16.0); Immature Granulocytes # (auto) 0.02 K/uL (0.00-0.02); Immature Granulocytes % (auto) 0.2 %; Lymphocytes # (auto) 1.36 K/uL (1.2-3.4); Mean Corpuscular Hemoglobin 35.8 pg (25-34); Mean Corpuscular Hgb Conc 32.4 g/dL (32-36); Mean Corpuscular Volume 110.5 fL (80-100); Mean Platelet Volume 8.3 fL (7.4-10.4); Monocytes # (auto) 0.98 K/uL (0.11-0.59); Monocytes % (auto) 9.3 %; Neutrophils # (auto) 8.08 K/uL (1.4-6.5); Platelet Count 434 K/uL (130-400); RDW Coefficient of Variation 15.7 % (11.5-14.5); RDW Standard Deviation 63.2 fL (36.4-46.3); Red Blood Count 3.13 M/uL (4.2-5.4); White Blood Count 10.49 K/uL (4.8-10.8)
[2021-06-30 15:19] LABS: Macrocytosis Present
--- NOTE | 2021-06-30 15:23 | XRay Report ---
SINGLE VIEW CHEST CLINICAL HISTORY: Generalized weakness. FINDINGS: An AP, portable, supine chest radiograph is compared to study dated 06/20/2021 and correlate d with chest CT dated 06/09/2021. The heart is enlarged noting atherosclerotic calcification of the tho racic aorta. The pulmonary vasculature is noncongested. There is a large hiatal hernia. Chronic inter stitial thickening is similar to previous. There are small pleural effusions with bibasilar scarring/ atelectasis. No pneumothorax is seen. The skeletal structures are osteopenic. There are numerous heal ed bilateral rib fractures. Degenerative change is noted in the shoulders. Degenerative change and sc oliosis is noted at the thoracolumbar junction. IMPRESSION: 1. Cardiomegaly without radiographic evidence of congestive failure. 2. Large hiatal hernia. 3. Small pleural effusions with bibasilar scarring/atelectasis. ACT 112: Negative or not required by law. Electronically signed by: Semaj Luong M.D. 06/30/2021 3:21 PM
[2021-06-30 15:24] LABS: INR 1.1 (0.9-1.1); Prothrombin Time 11.2 Seconds (9.0-12.0)
--- NOTE | 2021-06-30 15:27 | XRay Report ---
XR tibia fibula RT 2V, XR knee RT 1 or 2V routine, XR hip RT 2V w pelvis HISTORY: 81 years-old Female right tib fib fracture acute pain of the pelvis, right hip, knee, tibia and fibula COMPARISON: CT right hip 06/20/2021 TECHNIQUE: AP view of the pelvis with 2 views of the right hip, 2 views of the right knee with 2 view s of the right tibia and fibula FINDINGS: HIP: Acute to subacute appearing displaced periprosthetic fracture of the right proximal femur redemonstra natanael. Right hip total joint arthroplasty. Demineralized appearance of the bones. Unchanged subacute to chronic appearing fracture deformities of the right superior and inferior pubic rami. Soft tissue sw elling lateral to the right hip. Partially imaged hardware of the left proximal femur with at least m oderate left hip osteoarthritis. Subacute to chronic appearing fracture deformity of the left intertr ochanteric femur. KNEE: Demineralized appearance of the bones. There is an acute comminuted fracture of the proximal tibia wh ich appears to involve both the medial and lateral tibial plateaus. The largest oblique fracture invo lves the medial metadiaphyseal distribution. No significant cortical depression identified. There is an acute mildly comminuted and slightly displaced fracture of the fibular head and neck. Intact. Smal l lipohemarthrosis. Mild tricompartmental osteoarthritis of the knee. Arterial calcifications. Diffus e soft tissue prominence. TIBIA/FIBULA: Proximal tibia and fibula fractures as above. ORIF changes of the medial and lateral malleoli. No add itional acute fracture or dislocation identified. Moderate to severe osteoarthritis of the foot and a nkle. IMPRESSION: 1. Acute comminuted fractures of the proximal tibia and fibula with only mild displacement. 2. Acute subacute appearing periprosthetic fracture of the right proximal femur is unchanged from 06/03. 3. Small lipohemarthrosis of the right knee. ACT 112: Negative or not required by law. The above report was generated using voice recognition software. It may contain grammatical, syntax o r spelling errors. Electronically signed by: Ezra Gillis M.D. 06/30/2021 3:25 PM
[2021-06-30 15:33] LABS: Alanine Aminotransferase 17 U/L (7-52); Albumin Globulin Ratio 1.2 (0.9-2); Alkaline Phosphatase 148 U/L (34-104); Anion Gap 9 (3-11); BUN Creatinine Ratio 11.1 (10-20); Blood Urea Nitrogen 6 mg/dl (6-23); Calcium 8.1 mg/dl (8.5-10.1); Carbon Dioxide 28 mmol/L (21-32); Chloride 95 mmol/L (98-107); Est GFR (African American) 101.9 ml/min; Est GFR (Non-African American) 87.9 ml/min; Globulin 2.6 gm/dl (2.5-4.0); Glucose 85 mg/dl (70-99(Fasting)); Magnesium 1.6 mg/dl (1.7-2.4); Sodium 132 mmol/L (136-145); Total Protein 5.6 gm/dl (6.0-8.3)
[2021-06-30] MEDS ORDERED: MAGNESIUM SULFATE / D5W 1 GM/100 ML BAG IV STA ×2 (15:36→18:25)
[2021-06-30 16:06] LABS: Thyroid Stimulating Hormone 6.172 uIu/ml (0.300-4.500)
[2021-06-30 16:42] LABS: T4 Free Thyroxine 0.74 ng/dl (0.61-1.60)
[2021-06-30 16:57] LABS: Appearance Urine Clear (Clear); Bilirubin Urine Negative (Negative); Blood Urine Negative (Negative); Color Urine Yellow; Glucose Urine UA Negative (Negative); Ketones Urine Negative (Negative); Leukocyte Esterase Urine Negative (Negative); Nitrite Urine Negative (Negative); Protein Urine Negative (Negative); Specific Gravity Urine 1.007 (1.000-1.030); Urobilinogen Urine Negative (Negative); pH Urine 5.5 (4.5-7.5)
[2021-06-30 17:26] LABS: Potassium 3.4 mmol/L (3.5-5.1)
[2021-06-30] MEDS ORDERED: POTASSIUM CHLORIDE 10 MEQ TABCR PO STA (18:25)
--- NOTE | 2021-06-30 18:36 | History & Physical Report ---
Date of Service June 30, 2021 Assessment & Plan (1) Fracture, tibia and fibula, proximal: Plan: -Acute comminuted fractures of the proximal tibia and fibula with only mild displacement. Pulses intact, no numbness/tingling, -Patient reportedly took Tylenol, oxycodone today before presenting to the ED. Will continue pain control with Toradol, morphine as needed. -Ortho consulted, appreciate their recommendations. -PT/OT consulted for evaluation. (2) PAF (paroxysmal atrial fibrillation): Plan: -Rate controlled, < 100 in ED. -Continue diltiazem, flecainide. -Eliquis has been held since 06/20/2021 due to R periprosthetic hip fx with subsequent hematoma. (3) Bilateral edema of lower extremity: Plan: -Was discharged on 06/22 with 20 mg Lasix every other day, with signs of improvement of bilateral lower extremity swelling as well as hematomas. -Bilateral venous Doppler study ordered in ED, no DVT noted, the 2 large complex nonvascular fluid collections in the right proximal and mid to distal thigh have not significant changed as compared to 06/20/2021. -Continue to monitor renal function while on diuretics. (4) Hypokalemia: Plan: -3.4 in ED, will replete -Recheck in AM. (5) Hypomagnesemia: Plan: -1.6, will replete. -Recheck in AM. (6) Hyponatremia: Plan: -Na+ 132 near baseline. -Continue to monitor. (7) Osteoporosis: Plan: -Patient notes that she had previously been on calcium and vit D. -Vit D level 70 ng/ml WNL on last admission (06/20/21) (8) Hypertension: Plan: -Stable. -Continue diltiazem. (9) GERD without esophagitis: Plan: -Stable. -Continue PPI. (10) Hypercholesterolemia: Plan: -Stable. -Managed with diet. (11) Depression: Plan: -Stable. -Continue Cymbalta (12) History of lobectomy of thyroid: Plan: -s/p lobectomy in 2019; TSH today 6.172, T4 .74--> subclinical hypothyroidism, without symptoms of hypothyroidism. -TSH last checked in 2019 was wnl. -Could consider treatment with Synthroid if pt becomes symptomatic. Plan: -Medsurg with tele. -SCDs for DVT ppx, hold chemoppx d/t hematoma. -DNR/DNI, I discussed this with patient at bedside. History of Present Illness Chief Complaint: right proximal tib/fib fracture Primary Care Provider: Kimber Prater DO Patient is 81 year old female with PMH significant for paroxysmal atrial fibrillation, osteoporosis, vitamin D deficiency, HTN, hypercholesterolemia, GERD, depression, bilateral hip fractures, frequent falls, and right periprosthetic hip fracture on 06/09/21 who presents today from home after an unwitnessed ground-level fall. Patient states she was transferring from her toilet to her wheelchair when the wheelchair moved and she fell to the ground, landing on her right leg and buttocks. She reports pain around her right knee and lower leg, however denies numbness/tingling, pain at her right hip or ankle, or elsewhere. She has had ongoing right hip pain due to a fracture on 06/09, however is otherwise without complaints, no fever/chills, chest pain, palpitations, shortness of breath, syncope, generalized weakness. She denies hitting her head during this fall, no other areas of pain on her body. She denies previous falls since her last admission. She has not been on Eliquis since 06/20. In ED, vital signs stable and within normal limits. Routine labs significant for hemoglobin 11.2, uptrending since last admission. PT 11.2, INR 1.1 K+ 3.4, Mg++ 1.6, TSH 6.172, free T4 0.74. X-rays revealed Acute comminuted fractures of the proximal tibia and fibula with only mild displacement. Acute subacute appearing periprosthetic fracture of the right proximal femur is unchanged from 06/20/2021. Of note, patient was admitted on 06/09 for right periprosthetic hip fracture which was managed nonoperatively. She was readmitted on 06/20 for a worsening hematoma 2/2 fracture in setting of continuation of Eliquis. On both these admissions, it was recommended patient be discharged to an inpatient rehab facility, however patient left the hospital against medical advice. She has a self-reported history of frequent falls at home during transfers from her wheelchair to the commode. She had an appointment with her PCP on 06/27 for follow-up after hospital discharge. She was given a temporary prescription for oxycodone for ongoing right hip pain however it was reiterated to her that she is at high risk for future falls and fractures while she is taking narcotics. PCP also reiterated the need for inpatient rehab, however she declined. PT was to start coming to her home starting today. Allergies Allergy/AdvReac Type Severity Reaction Status Date / Time No Known Allergies Allergy Verified 06/27/21 08:37 Home Medications Medication Instructions Recorded Confirmed Type vitamins A,C,V-crxz-orbwzj 14,320 1 cap PO QAM 06/30/18 06/30/21 History unit-226 mg-200 unit capsule (PreserVision AREDS) tbnyzbfl-eil-awoot acid 0.4 1 tab PO DAILY 09/10/20 06/30/21 History mg-lycopene 300 mcg-lutein 250 mcg tablet (Centrum Silver) nystatin 100,000 unit/gram topical 1 applic TOPICAL BID #30 g 11/15/20 06/30/21 Rx cream duloxetine 60 mg capsule,delayed 60 mg PO QAM #90 cap 01/21/21 06/30/21 Rx release omeprazole 40 mg capsule,delayed 40 mg PO QAM #90 cap 01/21/21 06/30/21 Rx release acetaminophen 500 mg tablet 1,000 mg PO Q6H PRN 06/08/21 06/30/21 History (Tylenol Extra Strength) furosemide 20 mg tablet 20 mg PO Q OTHER DAY #14 tab 06/22/21 06/30/21 Rx diltiazem HCl 120 mg capsule,24 120 mg PO QAM #90 cap 06/26/21 06/30/21 Rx hr,extended release flecainide 100 mg tablet 100 mg PO Q12H #180 tab 06/26/21 06/30/21 Rx oxycodone 5 mg tablet (Roxicodone) 5 mg PO Q8H PRN #30 tab 06/27/21 06/30/21 Rx Past Med/Surg History Medical History Anemia Anxiety Chronic anticoagulation Chronic kidney disease, stage III (moderate) Cystic thyroid nodule Depression Diaphragmatic hernia Diastolic dysfunction Disc degeneration, lumbar Diverticulosis Fall GERD without esophagitis Grief Loss of spouse August 2018 Hypercholesterolemia Hypertension Lumbar spinal stenosis LVH (left ventricular hypertrophy) Macular degeneration Mitral regurgitation MODERATE Osteoarthritis Osteoporosis PAF (paroxysmal atrial fibrillation) Rheumatoid arthritis Right thyroid nodule Scoliosis Vitamin D deficiency Surgical History H/O bilateral oophorectomy B/L SALPINGOOPHORECTOMY= 04/12/17= GRADE VIEW 2, MAC 3, ETT 7.5 AT [facility] History of adenoidectomy History of cataract surgery RIGHT/LEFT History of hysterectomy (1988) History of open reduction and internal fixation (ORIF) procedure (1993) RIGHT ANKLE History of tonsillectomy History of tooth extraction History of total hip arthroplasty RIGHT Knee arthropathy w/ medial meniscus repair in 10/2017 S/P ORIF (open reduction internal fixation) fracture (~03/2021) Left Hip S/P thyroid surgery right thyroid lobectomy Dr. Thornton 01/06/19 Status post arthroscopic partial medial meniscectomy (11/02/17) R knee Family History Father Coronary heart disease Colorectal cancer Kidney disease Lung disease Mother Coronary heart disease Myocardial infarction Gallbladder disease Sister Diabetes Colorectal cancer Denies family history of Ovarian cancer Prostate cancer Breast cancer Social History Smoking Status: Never smoker Second Hand Exposure: Yes; Hx Alcohol Use: Yes Alcohol type: beer Alcohol Intake Frequency: 4 or More x per/Week Hx Substance Use: Yes Last Used Substance: Days (ago) Substance Use Type Other:: Oxycontin Preferred Language: Tajik Communication Ability: Effective Visual Impairment: No Limitations Hearing Ability: Use of Hearing Aid Mechanical Lead Required: No Beliefs That Will Affect Care: None marital status: / marital status details: passed August 2018 Current Living Situation: Alone Current Living Situation Comment: Caregivers 4 hours per day current occupational status: 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 How many Children do You have: 2 Other Information That Helps Us Care for You: No Feels Safe at Home: Yes Safety Concerns: Feels Safe At This Time Childhood Exposure to Second-Hand Smoke: No Diet Comment: regular caffeine: Yes (1/2 cup a day) during the past year weight has: decreased > 10 lbs Dental Care, Regularly: Yes Physical Activity Frequency: Daily Seatbelt Use: always Sunscreen Use: No Assistive Devices: Walker Review of Systems Review of Systems: Constitutional: No fever, sweats or chills Eyes: No diplopia, no worsening or blurred vision ENT: normal hearing, no trouble swallowing Respiratory: No cough, sputum, dyspnea at rest or on exertion Cardiovascular: No chest pain, tightness or palpitations Abdomen: No pain, nausea, vomiting, diarrhea or constipation Musculoskeletal: right knee/lower leg pain with palpation, b/l LE swelling, reportedly improving over the past week; without calf pain, other joint pain Neurologic: No weakness, numbness/tingling, or balance problems Psychiatric: No anxiety or depression Skin: No rash or itch Physical Exam Physical Exam: General: awake, alert, no apparent distress Head: Normocephalic, atraumatic ENT: PERRL, EOMI, no pharyngeal exudate, mucous membranes moist Chest: Clear to auscultation, on room air, no adventitious breath sounds Cardiac: Regular rate and rhythm, no murmur, no JVD, normal peripheral pulses, good capillary refill Abdominal: NABS x 4 quadrants, soft, nontender to palpation, no rebound, guarding or tenderness Extremities: b/l LE edema, R > L, with tenderness upon palpation of right knee and proximal tibia/fibula. Ecchymosis of right LE, some serosanguineous fluid leaking from left extremity; full ROM of joints with the exception of right knee 2/2 pain; Psych: Normal mood and affect Neuro: AAO x 3, strength intact bilaterally and rated 5/5, no motor deficits, speech is clear, no peripheral sensory deficits Skin: no rash or erythema Results & Data Results & Data ([facility]) Vital Signs (Past 12 Hours) Vital Signs Temp Pulse Pulse Resp BP BP Pulse Ox 06/30/21 14:47 91 H 14 143/77 H 93 06/30/21 14:15 36.2 C L 86 18 132/70 99 Laboratory Results Abnormal lab results 06/30/21 06/30/21 06/30/21 Range/Units 14:39 14:39 14:39 RBC 3.13 L (4.2-5.4) M/uL Hgb 11.2 L (12.0-16.0) g/dL Hct 34.6 L (37-47) % MCV 110.5 H (80-100) fL MCH 35.8 H (25-34) pg RDW Std Deviation 63.2 H (36.4-46.3) fL RDW Coeff of Tyra 15.7 H (11.5-14.5) % Plt Count 434 H (130-400) K/uL Neut # (Auto) 8.08 H (1.4-6.5) K/uL Ashley # (Auto) 0.98 H (0.11-0.59) K/uL Sodium 132 L (136-145) mmol/L Potassium (3.5-5.1) mmol/L Chloride 95 L (98-107) mmol/L Creatinine 0.54 L (0.6-1.2) mg/dl Calcium 8.1 L (8.5-10.1) mg/dl Magnesium 1.6 L (1.7-2.4) mg/dl Alkaline Phosphatase 148 H (34-104) U/L Total Protein 5.6 L (6.0-8.3) gm/dl Albumin 3.0 L (3.4-5.0) gm/dl TSH 6.172 H (0.300-4.500) uIu/ml 06/30/21 Range/Units 16:35 RBC (4.2-5.4) M/uL Hgb (12.0-16.0) g/dL Hct (37-47) % MCV (80-100) fL MCH (25-34) pg RDW Std Deviation (36.4-46.3) fL RDW Coeff of Tyra (11.5-14.5) % Plt Count (130-400) K/uL Neut # (Auto) (1.4-6.5) K/uL Ashley # (Auto) (0.11-0.59) K/uL Sodium (136-145) mmol/L Potassium 3.4 L (3.5-5.1) mmol/L Chloride (98-107) mmol/L Creatinine (0.6-1.2) mg/dl Calcium (8.5-10.1) mg/dl Magnesium (1.7-2.4) mg/dl Alkaline Phosphatase (34-104) U/L Total Protein (6.0-8.3) gm/dl Albumin (3.4-5.0) gm/dl TSH (0.300-4.500) uIu/ml Diagnostic Findings Chest X-Ray 06/30/21 14:23 SINGLE VIEW CHEST CLINICAL HISTORY: Generalized weakness. FINDINGS: An AP, portable, supine chest radiograph is compared to study dated 06/20/2021 and correlated with chest CT dated 06/09/2021. The heart is enlarged noting atherosclerotic calcification of the thoracic aorta. The pulmonary vasculature is noncongested. There is a large hiatal hernia. Chronic interstit ial thickening is similar to previous. There are small pleural effusions with bibasilar scarring/atelectasis. No pneumothorax is seen. The skeletal structures are osteopenic. There are numerous healed bilateral rib fractures. Degenerative change is noted in the shoulders. Degenerative change and scoliosis is noted at the thoracolumbar junction. IMPRESSION: 1. Cardiomegaly without radiographic evidence of congestive failure. 2. Large hiatal hernia. 3. Small pleural effusions with bibasilar scarring/atelectasis. ACT 112: Negative or not required by law. Electronically signed by: Semaj Luong M.D. 06/30/2021 3:21 PM Hip/Pelvis X-Ray 06/30/21 14:24 XR tibia fibula RT 2V, XR knee RT 1 or 2V routine, XR hip RT 2V w pelvis HISTORY: 81 years-old Female right tib fib fracture acute pain of the pelvis, right hip, knee, tibia and fibula COMPARISON: CT right hip 06/20/2021 TECHNIQUE: AP view of the pelvis with 2 views of the right hip, 2 views of the right knee with 2 views of the right tibia and fibula FINDINGS: HIP: Acute to subacute appearing displaced periprosthetic fracture of the right proximal femur redemonstrated. Right hip total joint arthroplasty. Demineralized appearance of the bones. Unchanged subacute to chronic appearing fracture deformities of the right superior and inferior pubic rami. Soft tissue swelling lateral to the right hip. Partially imaged hardware of the left proximal femur with at least moderate left hip osteoarthritis. Subacute to chronic appearing fracture deformity of the left intertrochanteric femur. KNEE: Demineralized appearance of the bones. There is an acute comminuted fracture of the proximal tibia which appears to involve both the medial and lateral tibial plateaus. The largest oblique fracture involves the medial metadiaphyseal distribution. No significant cortical depression identified. There is an acute mildly comminuted and slightly displaced fracture of the fibular head and neck. Intact. Small lipohemarthrosis. Mild tricompartmental osteoarthritis of the knee. Arterial calcifications. Diffuse soft tissue prominence. TIBIA/FIBULA: Proximal tibia and fibula fractures as above. ORIF changes of the medial and lateral malleoli. No additional acute fracture or dislocation identified. Moderate to severe osteoarthritis of the foot and ankle. IMPRESSION: 1. Acute comminuted fractures of the proximal tibia and fibula with only mild displacement. 2. Acute subacute appearing periprosthetic fracture of the right proximal femur is unchanged from 06/20/2021. 3. Small lipohemarthrosis of the right knee. ACT 112: Negative or not required by law. The above report was generated using voice recognition software. It may contain grammatical, syntax or spelling errors. Electronically signed by: Ezra Gillis M.D. 06/30/2021 3:25 PM Knee X-Ray 06/30/21 14:24 XR tibia fibula RT 2V, XR knee RT 1 or 2V routine, XR hip RT 2V w pelvis HISTORY: 81 years-old Female right tib fib fracture acute pain of the pelvis, right hip, knee, tibia and fibula COMPARISON: CT right hip 06/20/2021 TECHNIQUE: AP view of the pelvis with 2 views of the right hip, 2 views of the right knee with 2 views of the right tibia and fibula FINDINGS: HIP: Acute to subacute appearing displaced periprosthetic fracture of the right proximal femur redemonstrated. Right hip total joint arthroplasty. Demineralized appearance of the bones. Unchanged subacute to chronic appearing fracture deformities of the right superior and inferior pubic rami. Soft tissue swelling lateral to the right hip. Partially imaged hardware of the left proximal femur with at least moderate left hip osteoarthritis. Subacute to chronic appearing fracture deformity of the left intertrochanteric femur. KNEE: Demineralized appearance of the bones. There is an acute comminuted fracture of the proximal tibia which appears to involve both the medial and lateral tibial plateaus. The largest oblique fracture involves the medial metadiaphyseal distribution. No significant cortical depression identified. There is an acute mildly comminuted and slightly displaced fracture of the fibular head and neck. Intact. Small lipohemarthrosis. Mild tricompartmental osteoarthritis of the knee. Arterial calcifications. Diffuse soft tissue prominence. TIBIA/FIBULA: Proximal tibia and fibula fractures as above. ORIF changes of the medial and lateral malleoli. No additional acute fracture or dislocation identified. Moderate to severe osteoarthritis of the foot and ankle. IMPRESSION: 1. Acute comminuted fractures of the proximal tibia and fibula with only mild displacement. 2. Acute subacute appearing periprosthetic fracture of the right proximal femur is unchanged from 06/20/2021. 3. Small lipohemarthrosis of the right knee. ACT 112: Negative or not required by law. The above report was generated using voice recognition software. It may contain grammatical, syntax or spelling errors. Electronically signed by: Ezra Gillis M.D. 06/30/2021 3:25 PM Tibia/Fibula X-Ray 06/30/21 14:59 XR tibia fibula RT 2V, XR knee RT 1 or 2V routine, XR hip RT 2V w pelvis HISTORY: 81 years-old Female right tib fib fracture acute pain of the pelvis, right hip, knee, tibia and fibula COMPARISON: CT right hip 06/20/2021 TECHNIQUE: AP view of the pelvis with 2 views of the right hip, 2 views of the right knee with 2 views of the right tibia and fibula FINDINGS: HIP: Acute to subacute appearing displaced periprosthetic fracture of the right proximal femur redemonstrated. Right hip total joint arthroplasty. Demineralized appearance of the bones. Unchanged subacute to chronic appearing fracture deformities of the right superior and inferior pubic rami. Soft tissue swelling lateral to the right hip. Partially imaged hardware of the left proximal femur with at least moderate left hip osteoarthritis. Subacute to chronic appearing fracture deformity of the left intertrochanteric femur. KNEE: Demineralized appearance of the bones. There is an acute comminuted fracture of the proximal tibia which appears to involve both the medial and lateral tibial plateaus. The largest oblique fracture involves the medial metadiaphyseal distribution. No significant cortical depression identified. There is an acute mildly comminuted and slightly displaced fracture of the fibular head and neck. Intact. Small lipohemarthrosis. Mild tricompartmental osteoarthritis of the knee. Arterial calcifications. Diffuse soft tissue prominence. TIBIA/FIBULA: Proximal tibia and fibula fractures as above. ORIF changes of the medial and lateral malleoli. No additional acute fracture or dislocation identified. Moderate to severe osteoarthritis of the foot and ankle. IMPRESSION: 1. Acute comminuted fractures of the proximal tibia and fibula with only mild displacement. 2. Acute subacute appearing periprosthetic fracture of the right proximal femur is unchanged from 06/20/2021. 3. Small lipohemarthrosis of the right knee. ECG Additional Comments: Sinus rhythm with 1st degree A-V block Possible Anterior infarct (cited on or before 20-JUN-2021) Abnormal ECG When compared with ECG of 20-JUN-2021 16:08, NE interval has increased Nonspecific T wave abnormality now evident in Inferior leads QT has lengthened. Code Status & VTE Plan Code Status DNR/DNI VTE Prophylaxis Plan VTE Prophylaxis will be ordered: Yes Supervising Physician Co-Signing Physician Notes Patient was seen and examined independently I discussed the case with Bushra Hall PAC I reviewed pertinent past medical social family history and also the plan of care and agree with the plan of care. Patient with recent periprosthetic hip fracture earlier in June who was recommended rehab and declined has subsequently fallen when her wheelchair slipped away from her she was getting off the toilet and the sustained a proximal right tib-fib fracture. She is currently pending evaluation by orthopedics to see if surgical repair is needed however this will continue to severely limit her ambulation most undoubtedly have her remanded to a skilled care facility. Otherwise patient denies many review of systems questions she even denies that her leg hurts until this examined Denies loss of consciousness palpitations or chest pain Examination of her leg shows distal pulses intact she is erythema warmth and swelling to the proximal right lower extremity Patient be brought in for pain control orthopedic assessment and evaluation for possible post acute care placement Any exceptions will be noted below PG Care Time/CCT Total # of Minutes Spent Total Time Spent with Patient: Total time spent is greater than 50% in coordination of care (as documented) at patient's floor/unit and/or counseling patient: Coding Level of Care Code 42944 Initial Inpt Care Lvl 3 Diagnoses Fracture, tibia and fibula, proximal S82.109A; S82.839A Bilateral edema of lower extremity R60.0 Hypokalemia E87.6 Hypomagnesemia E83.42 Hyponatremia E87.1 PAF (paroxysmal atrial fibrillation) I48.0 Osteoporosis M81.0 Hypertension I10 GERD without esophagitis K21.9 Hypercholesterolemia E78.00 Depression F32.9 History of lobectomy of thyroid Z90.09
--- NOTE | 2021-06-30 19:16 | Ultrasound Report ---
ULTRASOUND BILATERAL LOWER EXTREMITY VENOUS CLINICAL HISTORY: Leg pain. COMPARISON STUDY: Bilateral lower extremity venous ultrasound dated 06/20/2021. TECHNIQUE: Real-time, grayscale, and color Doppler sonography of the deep veins of the right and left lower extremity was performed from the inguinal crease to the calf. Compression and augmentation wer e utilized. FINDINGS: There is no sonographic evidence of deep venous thrombosis identified in the right or left lower extremity. The common femoral, superficial femoral, and popliteal veins are patent and normally compressible bilaterally. The greater saphenous vein and the profunda femoris vein at the junction w ith the common femoral vein are clear in both legs. The visualized calf veins are patent bilaterally. There is a complex nonvascular fluid collection the right anterior mid to distal thigh which measure s 17.1 x 3.0 x 3.9 cm. A second similar-appearing complex fluid collection in the right anterior uppe r thigh measures 11.6 x 5.0 x 7.0 cm. Soft tissue edema is present in both calves. IMPRESSION: 1. There is no sonographic evidence of deep venous thrombosis identified in the right or left lower e xtremity. 2. The 2 large complex nonvascular fluid collections in the right proximal and mid to distal thigh as detailed above have not significant changed as compared to 06/20/2021. These likely represent hematom as and clinical follow-up to resolution is recommended. ACT 112: Negative or not required by law. Electronically signed by: Semaj Luong M.D. 06/30/2021 7:15 PM
[2021-06-30] MEDS ORDERED: MoRPHine SULFATE 2 MG/ML CARP IV STA (19:24)
[2021-06-30] MEDS ORDERED: ONDANSETRON INJ 2 MG/ML 2 ML VIAL IV STA (19:24)
[2021-06-30] MEDS ORDERED: POLYETHYLENE (MIRALAX) 17 GM PACK PO PRN (21:03)
[2021-06-30] MEDS ORDERED: ONDANSETRON INJ 2 MG/ML 2 ML VIAL IV PRN (21:03)
[2021-06-30] MEDS ORDERED: KETOROLAC TROMETHAMINE 15 MG/ML VIAL IV PRN (21:03)
[2021-06-30] MEDS ORDERED: MoRPHine SULFATE 4 MG/ML 1 ML CARP\\VIAL IV PRN (21:03)
[2021-06-30] MEDS: FLECAINIDE ACETATE 100 MG TABLET PO SCH (21:50)
--- NOTE | 2021-06-30 23:03 | Emergency Department Note ---
Impression & Plan Hematoma of right lower extremity, Fracture, tibia and fibula, proximal, Falls frequently ED Provider Note CHIEF COMPLAINT: Right leg pain, fall HISTORY OF PRESENT ILLNESS: This 81-year-old female patient presents to the emergency department with complaints of right proximal tib-fib pain after a fall today. She states she was trying to transfer from the toilet to her wheelchair when the wheelchair moved. She called her medical alert button for assistance. Patient denies any head pain or neck pain. She denies any loss of consciousness. The patient has had multiple falls at home including bilateral hip fractures and an ankle fracture. Patient denies taking any blood thinners and states she was recently taken off of her blood thinners because she developed a hematoma in the right leg. REVIEW OF SYSTEMS: A review of systems was performed with positives and pertinent negatives listed in the history of present illness. 10 systems were reviewed and are otherwise negative. ALLERGIES: see below MEDICATIONS: see below PMH: see below SOCIAL HISTORY: see below DDx: Fracture, DVT, subluxation, dislocation, contusion, ligamentous injury, neurovascular, compartment syndrome, rhabdomyolysis, as well as other pathologies. PHYSICAL EXAM: Vital signs reviewed. General: Chronically ill appearing, elderly, in no significant distress. HEENT: No scleral icterus, PERRLA, neck supple. Atraumatic. Cardiovascular: Regular rate and rhythm, no extra sounds. Pulmonary: Clear to auscultation bilaterally, normal work of breathing. Abdomen: Soft, nontender, nondistended, positive bowel sounds. Musculoskeletal: Atraumatic, ecchymosis and edema to RLE>LLE. pain with movement of RLE, pain to palpation of distal knee, proximal tibia. Neurologic: Patient awake alert and oriented x 3, speech is clear Skin: Warm, dry, as above, skin intact from trauma standpoint. minimal we eping/edema EMERGENCY DEPARTMENT COURSE/MDM: This pt was evaluated and appeared to be in some discomfort. 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 IV access was obtained and lab work was drawn. Pt was placed on a ekg monitor tech and noted to be in a normal sinus rhythm. X-rays of the right lower extremity were performed and reveal a proximal tib-fib fracture. Ultrasound the right lower extremity was performed and negative for DVT. Patient was placed in a long-leg splint and ortho was consulted. Patient will be evaluated by medicine for admission and orthopedic consultation. Pt was made aware of the plan and agreed. MONITORING: An order for cardiac monitoring was placed and the patient is noted to be in a NSR at 90 beats per minute. RADIOLOGY: see below EKG: SR with first-degree AV block 91 bpm, poor R wave progression. Leftward axis, prolonged QTc 629. nonspecific T wave abnl in inferior leads. DISPOSITION: Admit Past Med/Surg History Medical History Anemia Anxiety Chronic anticoagulation Chronic kidney disease, stage III (moderate) Cystic thyroid nodule Depression Diaphragmatic hernia Diastolic dysfunction Disc degeneration, lumbar Diverticulosis Fall GERD without esophagitis Grief Loss of spouse August 2018 Hypercholesterolemia Hypertension Lumbar spinal stenosis LVH (left ventricular hypertrophy) Macular degeneration Mitral regurgitation MODERATE Osteoarthritis Osteoporosis PAF (paroxysmal atrial fibrillation) Rheumatoid arthritis Right thyroid nodule Scoliosis Vitamin D deficiency Surgical History H/O bilateral oophorectomy B/L SALPINGOOPHORECTOMY= 04/12/17= GRADE VIEW 2, MAC 3, ETT 7.5 AT [facility] History of adenoidectomy History of cataract surgery RIGHT/LEFT History of hysterectomy (1988) History of open reduction and internal fixation (ORIF) procedure (1993) RIGHT ANKLE History of tonsillectomy History of tooth extraction History of total hip arthroplasty RIGHT Knee arthropathy w/ medial meniscus repair in 10/2017 S/P ORIF (open reduction internal fixation) fracture (~03/2021) Left Hip S/P thyroid surgery right thyroid lobectomy Dr. Thornton 01/06/19 Status post arthroscopic partial medial meniscectomy (11/02/17) R knee Family History Father Coronary heart disease Colorectal cancer Kidney disease Lung disease Mother Coronary heart disease Myocardial infarction Gallbladder disease Sister Diabetes Colorectal cancer Denies family history of Ovarian cancer Prostate cancer Breast cancer Social History Smoking Status: Never smoker Second Hand Exposure: Yes; Hx Alcohol Use: Yes Alcohol type: beer Alcohol Intake Frequency: 4 or More x per/Week Hx Substance Use: Yes Last Used Substance: Days (ago) Substance Use Type Other:: Oxycontin Preferred Language: [place] Communication Ability: Effective Visual Impairment: No Limitations Hearing Ability: Use of Hearing Aid [employer] Counter Associate Required: No Beliefs That Will Affect Care: None marital status: / marital status details: passed August 2018 Current Living Situation: Alone Current Living Situation Comment: Caregivers 4 hours per day current occupational status: 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 How many Children do You have: 2 Other Information That Helps Us Care for You: No Feels Safe at Home: Yes Safety Concerns: Feels Safe At This Time Childhood Exposure to Second-Hand Smoke: No Diet Comment: regular caffeine: Yes (1/2 cup a day) during the past year weight has: decreased > 10 lbs Dental Care, Regularly: Yes Physical Activity Frequency: Daily Seatbelt Use: always Sunscreen Use: No Assistive Devices: Denture - Upper Allergies Allergies Allergy/AdvReac Type Severity Reaction Status Date / Time No Known Allergies Allergy Verified 06/27/21 08:37 Home Meds Home Medications Medication Instructions Recorded Confirmed vitamins A,C,O-xytu-lopxmo 14,320 1 cap PO QAM 06/30/18 06/30/21 unit-226 mg-200 unit capsule (PreserVision AREDS) okxnqjnw-bit-msvnq acid 0.4 1 tab PO DAILY 09/10/20 06/30/21 mg-lycopene 300 mcg-lutein 250 mcg tablet (Centrum Silver) acetaminophen 500 mg tablet 1,000 mg PO Q6H PRN 06/08/21 06/30/21 (Tylenol Extra Strength) Previous Rx's Medication Instructions Recorded nystatin 100,000 unit/gram topical 1 applic TOPICAL BID #30 g 11/15/20 cream duloxetine 60 mg capsule,delayed 60 mg PO QAM #90 cap 01/21/21 release omeprazole 40 mg capsule,delayed 40 mg PO QAM #90 cap 01/21/21 release furosemide 20 mg tablet 20 mg PO Q OTHER DAY #14 tab 06/22/21 diltiazem HCl 120 mg capsule,24 120 mg PO QAM #90 cap 06/26/21 hr,extended release flecainide 100 mg tablet 100 mg PO Q12H #180 tab 06/26/21 oxycodone 5 mg tablet (Roxicodone) 5 mg PO Q8H PRN #30 tab 06/27/21 Results & Data (ED) Vital Signs Vital Signs - 24 hr 06/30/21 14:15 06/30/21 14:37 06/30/21 14:47 Temperature 36.2 C L Temperature Source Temporal Artery Scan Pulse Rate 86 91 H 90 Pulse Rate [Apical] 91 H Pulse Rate from SpO2 Sensor 90 Pulse Rhythm [Apical] Regular Respiratory Rate 18 21 16 Respiratory Effort / Characteristics Non-Labored Non-Labored Respiratory Depth Normal Normal Blood Pressure 132/70 143/77 H Blood Pressure [Right Arm] 143/77 H Blood Pressure Mean 90 99 Blood Pressure Mean [Right Arm] 99 Pulse Oximetry 99 95 Oxygen Delivery Method Room Air Sepsis Recent Fever Within 48 Hours No Sepsis New/Unexplained Change in Mental Status No Sepsis Action Taken by Nursing No Action Required 06/30/21 15:00 06/30/21 15:30 06/30/21 16:00 Temperature Temperature Source Pulse Rate 92 H Pulse Rate [Apical] Pulse Rate from SpO2 Sensor 92 H Pulse Rhythm [Apical] Respiratory Rate 18 29 H 28 H Respiratory Effort / Characteristics Respiratory Depth Blood Pressure 156/86 H 143/76 H Blood Pressure [Right Arm] Blood Pressure Mean 109 98 Blood Pressure Mean [Right Arm] Pulse Oximetry 99 Oxygen Delivery Method Sepsis Recent Fever Within 48 Hours Sepsis New/Unexplained Change in Mental Status Sepsis Action Taken by Nursing 06/30/21 16:30 06/30/21 17:00 06/30/21 17:30 Temperature Temperature Source Pulse Rate Pulse Rate [Apical] Pulse Rate from SpO2 Sensor Pulse Rhythm [Apical] Respiratory Rate 17 20 36 H Respiratory Effort / Characteristics Respiratory Depth Blood Pressure 127/65 Blood Pressure [Right Arm] Blood Pressure Mean 85 Blood Pressure Mean [Right Arm] Pulse Oximetry Oxygen Delivery Method Sepsis Recent Fever Within 48 Hours Sepsis New/Unexplained Change in Mental Status Sepsis Action Taken by Nursing 06/30/21 18:00 Temperature Temperature Source Pulse Rate Pulse Rate [Apical] Pulse Rate from SpO2 Sensor Pulse Rhythm [Apical] Respiratory Rate 24 Respiratory Effort / Characteristics Respiratory Depth Blood Pressure 125/78 Blood Pressure [Right Arm] Blood Pressure Mean 93 Blood Pressure Mean [Right Arm] Pulse Oximetry Oxygen Delivery Method Sepsis Recent Fever Within 48 Hours Sepsis New/Unexplained Change in Mental Status Sepsis Action Taken by [facility] Medications Current Medication List: was personally reviewed by me Laboratory Data Attestation: I reviewed the patient's lab results. Result diagrams: 07/02/21 08:00 07/02/21 08:00 Lab Results 06/30/21 06/30/21 06/30/21 Range/Units 14:39 14:39 14:39 WBC 10.49 (4.8-10.8) K/uL RBC 3.13 L (4.2-5.4) M/uL Hgb 11.2 L (12.0-16.0) g/dL Hct 34.6 L (37-47) % MCV 110.5 H (80-100) fL MCH 35.8 H (25-34) pg MCHC 32.4 (32-36) g/dL RDW Std Deviation 63.2 H (36.4-46.3) fL RDW Coeff of Tyra 15.7 H (11.5-14.5) % Plt Count 434 H (130-400) K/uL MPV 8.3 (7.4-10.4) fL Immature Gran % (Auto) 0.2 % Neut % (Auto) 77.0 % Lymph % (Auto) 13.0 % [place] % (Auto) 9.3 % Eos % (Auto) 0.1 % Baso % (Auto) 0.4 % Neut # (Auto) 8.08 H (1.4-6.5) K/uL Lymph # (Auto) 1.36 (1.2-3.4) K/uL [place] # (Auto) 0.98 H (0.11-0.59) K/uL Eos # (Auto) 0.01 (0-0.5) K/uL Baso # (Auto) 0.04 (0-0.2) K/uL Immature Gran # (Auto) 0.02 (0.00-0.02) K/uL Macrocytosis Present PT 11.2 (9.0-12.0) Seconds INR 1.1 (0.9-1.1) Sodium 132 L (136-145) mmol/L Potassium (3.5-5.1) mmol/L Chloride 95 L (98-107) mmol/L Carbon Dioxide 28 (21-32) mmol/L Anion Gap 9 (3-11) BUN 6 (6-23) mg/dl Creatinine 0.54 L (0.6-1.2) mg/dl Est Cr Clr Drug Dosing Not Reportable Est GFR ( Amer) 101.9 ml/min Est GFR (Non-Af Amer) 87.9 ml/min BUN/Creatinine Ratio 11.1 (10-20) Glucose 85 (70-99(Fasting)) mg/dl Calcium 8.1 L (8.5-10.1) mg/dl Magnesium 1.6 L (1.7-2.4) mg/dl Total Bilirubin 1.0 (0.2-1.0) mg/dl AST (13-39) U/L ALT 17 (7-52) U/L Alkaline Phosphatase 148 H (34-104) U/L Total Protein 5.6 L (6.0-8.3) gm/dl Albumin 3.0 L (3.4-5.0) gm/dl Globulin 2.6 (2.5-4.0) gm/dl Albumin/Globulin Ratio 1.2 (0.9-2) TSH (0.300-4.500) uIu/ml Free T4 (0.61-1.60) ng/dl Urine Color Urine Appearance (Clear) Urine pH (4.5-7.5) Ur Specific [place] (1.000-1.030) Urine Protein (Negative) Urine Glucose (UA) (Negative) Urine Ketones (Negative) Urine Blood (Negative) Urine Nitrite (Negative) Urine Bilirubin (Negative) Urine Urobilinogen (Negative) Ur Leukocyte Esterase (Negative) SARS-CoV-2, RNA, NAAT (NEGATIVE) 06/30/21 06/30/21 06/30/21 Range/Units 14:39 14:50 16:20 WBC (4.8-10.8) K/uL RBC (4.2-5.4) M/uL Hgb (12.0-16.0) g/dL Hct (37-47) % MCV (80-100) fL MCH (25-34) pg MCHC (32-36) g/dL RDW Std Deviation (36.4-46.3) fL RDW Coeff of Tyra (11.5-14.5) % Plt Count (130-400) K/uL MPV (7.4-10.4) fL Immature Gran % (Auto) % Neut % (Auto) % Lymph % (Auto) % [place] % (Auto) % Eos % (Auto) % Baso % (Auto) % Neut # (Auto) (1.4-6.5) K/uL Lymph # (Auto) (1.2-3.4) K/uL [place] # (Auto) (0.11-0.59) K/uL Eos # (Auto) (0-0.5) K/uL Baso # (Auto) (0-0.2) K/uL Immature Gran # (Auto) (0.00-0.02) K/uL Macrocytosis PT (9.0-12.0) Seconds INR (0.9-1.1) Sodium (136-145) mmol/L Potassium (3.5-5.1) mmol/L Chloride (98-107) mmol/L Carbon Dioxide (21-32) mmol/L Anion Gap (3-11) BUN (6-23) mg/dl Creatinine (0.6-1.2) mg/dl Est Cr Clr Drug Dosing Est GFR ( Amer) ml/min Est GFR (Non-Af Amer) ml/min BUN/Creatinine Ratio (10-20) Glucose (70-99(Fasting)) mg/dl Calcium (8.5-10.1) mg/dl Magnesium (1.7-2.4) mg/dl Total Bilirubin (0.2-1.0) mg/dl AST (13-39) U/L ALT (7-52) U/L Alkaline Phosphatase (34-104) U/L Total Protein (6.0-8.3) gm/dl Albumin (3.4-5.0) gm/dl Globulin (2.5-4.0) gm/dl Albumin/Globulin Ratio (0.9-2) TSH 6.172 H (0.300-4.500) uIu/ml Free T4 0.74 (0.61-1.60) ng/dl Urine Color Yellow Urine Appearance Clear (Clear) Urine pH 5.5 (4.5-7.5) Ur Specific [place] 1.007 (1.000-1.030) Urine Protein Negative (Negative) Urine Glucose (UA) Negative (Negative) Urine Ketones Negative (Negative) Urine Blood Negative (Negative) Urine Nitrite Negative (Negative) Urine Bilirubin Negative (Negative) Urine Urobilinogen Negative (Negative) Ur Leukocyte Esterase Negative (Negative) SARS-CoV-2, RNA, NAAT NEGATIVE (NEGATIVE) 06/30/21 Range/Units 16:35 WBC (4.8-10.8) K/uL RBC (4.2-5.4) M/uL Hgb (12.0-16.0) g/dL Hct (37-47) % MCV (80-100) fL MCH (25-34) pg MCHC (32-36) g/dL RDW Std Deviation (36.4-46.3) fL RDW Coeff of Tyra (11.5-14.5) % Plt Count (130-400) K/uL MPV (7.4-10.4) fL Immature Gran % (Auto) % Neut % (Auto) % Lymph % (Auto) % [place] % (Auto) % Eos % (Auto) % Baso % (Auto) % Neut # (Auto) (1.4-6.5) K/uL Lymph # (Auto) (1.2-3.4) K/uL [place] # (Auto) (0.11-0.59) K/uL Eos # (Auto) (0-0.5) K/uL Baso # (Auto) (0-0.2) K/uL Immature Gran # (Auto) (0.00-0.02) K/uL Macrocytosis PT (9.0-12.0) Seconds INR (0.9-1.1) Sodium (136-145) mmol/L Potassium 3.4 L (3.5-5.1) mmol/L Chloride (98-107) mmol/L Carbon Dioxide (21-32) mmol/L Anion Gap (3-11) BUN (6-23) mg/dl Creatinine (0.6-1.2) mg/dl Est Cr Clr Drug Dosing Est GFR ( Amer) ml/min Est GFR (Non-Af Amer) ml/min BUN/Creatinine Ratio (10-20) Glucose (70-99(Fasting)) mg/dl Calcium (8.5-10.1) mg/dl Magnesium (1.7-2.4) mg/dl Total Bilirubin (0.2-1.0) mg/dl AST 21 (13-39) U/L ALT (7-52) U/L Alkaline Phosphatase (34-104) U/L Total Protein (6.0-8.3) gm/dl Albumin (3.4-5.0) gm/dl Globulin (2.5-4.0) gm/dl Albumin/Globulin Ratio (0.9-2) TSH (0.300-4.500) uIu/ml Free T4 (0.61-1.60) ng/dl Urine Color Urine Appearance (Clear) Urine pH (4.5-7.5) Ur Specific [place] (1.000-1.030) Urine Protein (Negative) Urine Glucose (UA) (Negative) Urine Ketones (Negative) Urine Blood (Negative) Urine Nitrite (Negative) Urine Bilirubin (Negative) Urine Urobilinogen (Negative) Ur Leukocyte Esterase (Negative) SARS-CoV-2, RNA, NAAT (NEGATIVE) Administered Medications Acetaminophen (Acetaminophen 500 Mg Tab) 1,000 mg PO Q6H PRN PRN Reason: Pain Stop: 07/30/21 21:02 Last Admin: 07/02/21 08:55 Dose: 1,000 mg Documented by: [id number] Diltiazem HCl (Diltiazem Er 120 Mg Capcr) 120 mg PO QAM [facility] Stop: 07/31/21 08:59 Last Admin: 07/02/21 08:54 Dose: 120 mg Documented by: [id number] Admin: 07/01/21 08:18 Dose: 120 mg Documented by: [id number] Duloxetine HCl (Duloxetine Hcl 60 Mg Cap) 60 mg PO QAM [facility] Stop: 07/31/21 08:59 Last Admin: 07/02/21 08:54 Dose: 60 mg Documented by: [id number] Admin: 07/01/21 08:18 Dose: 60 mg Documented by: [id number] Flecainide Acetate (Flecainide Acetate 100 Mg Tablet) 100 mg PO Q12 [facility] Stop: 07/30/21 21:02 Last Admin: 07/02/21 08:54 Dose: 100 mg Documented by: [id number] Admin: 07/01/21 20:25 Dose: 100 mg Documented by: [id number] Admin: 07/01/21 08:18 Dose: 100 mg Documented by: [id number] Admin: 06/30/21 21:50 Dose: 100 mg Documented by: [id number] Furosemide (Furosemide 20 Mg Tab) 20 mg PO Q2D@0900 [facility] Stop: 08/01/21 08:59 Last Admin: 07/02/21 08:54 Dose: 20 mg Documented by: [id number] Ketorolac Tromethamine (Ketorolac Tromethamine 15 Mg/Ml Vial) 10 mg IV Q6H PRN PRN Reason: Pain Stop: 07/05/21 21:02 Last Admin: 07/01/21 21:51 Dose: 10 mg Documented by: [id number] Morphine Sulfate (Morphine Sulfate 2 Mg/Ml Carp) 2 mg IV Q3H PRN PRN Reason: Pain (1,2,3,4,5) & Pre PT Stop: 07/14/21 21:02 Last Admin: 07/01/21 17:59 Dose: 2 mg Documented by: [id number] Admin: 07/01/21 12:47 Dose: 2 mg Documented by: [id number] Admin: 07/01/21 08:22 Dose: 2 mg Documented by: [id number] Admin: 07/01/21 04:13 Dose: 2 mg Documented by: [id number] Admin: 07/01/21 00:59 Dose: 2 mg Documented by: [id number] Multivitamins/Minerals (Cerovite Adv Formula Tab) [facility] [place] Stop: 07/31/21 08:59 Last Admin: 07/02/21 08:53 Dose: 1 tab Documented by: [id number] Admin: 07/01/21 12:45 Dose: 1 tab Documented by: [id number] Pantoprazole Sodium (Pantoprazole 40 Mg Tab) 40 mg PO QAM [facility] Stop: 07/31/21 08:59 Last Admin: 07/02/21 08:53 Dose: 40 mg Documented by: [id number] Admin: 07/01/21 08:18 Dose: 40 mg Documented by: [id number] Discontinued Medications Magnesium Sulfate/Dextrose (Magnesium Sulfate / D5w) 1 gm in 100 mls @ 100 mls/hr IV NOW STA Stop: 06/30/21 16:35 Last Infusion: 06/30/21 16:58 Dose: 0 mls/hr Documented by: [id number] Admin: 06/30/21 15:54 Dose: 100 mls/hr Documented by: [id number] Magnesium Sulfate/Dextrose (Magnesium Sulfate / D5w) 1 gm in 100 mls @ 50 mls/hr IV Q2H STA Stop: 06/30/21 20:24 Last Infusion: 06/30/21 21:26 Dose: 0 mls/hr Documented by: [id number] Admin: 06/30/21 19:11 Dose: 50 mls/hr Documented by: [id number] Morphine Sulfate (Morphine Sulfate 2 Mg/Ml Carp) 2 mg IV NOW STA Stop: 06/30/21 19:25 Last Admin: 06/30/21 19:33 Dose: 2 mg Documented by: [id number] Ondansetron HCl (Ondansetron Inj 2 Mg/Ml 2 Ml Vial) 4 mg IV NOW STA Stop: 06/30/21 19:25 Last Admin: 06/30/21 19:33 Dose: 4 mg Documented by: [id number] Potassium Chloride (Potassium Chloride 10 Meq Tabcr) 40 meq PO NOW STA Stop: 06/30/21 18:26 Last Admin: 06/30/21 19:10 Dose: 40 meq Documented by: [id number] Imaging Data Radiologist's Impression: Chest X-Ray 06/30/21 14:23 SINGLE VIEW CHEST CLINICAL HISTORY: Generalized weakness. FINDINGS: An AP, portable, supine chest radiograph is compared to study dated 06/20/2021 and correlated with chest CT dated 06/09/2021. The heart is enlarged noting atherosclerotic calcification of the thoracic aorta. The pulmonary vasculature is noncongested. There is a large hiatal hernia. Chronic interstitial thickening is similar to previous. There are small pleural effusi ons with bibasilar scarring/atelectasis. No pneumothorax is seen. The skeletal structures are osteopenic. There are numerous healed bilateral rib fractures. Degenerative change is noted in the shoulders. Degenerative change and scoliosis is noted at the thoracolumbar junction. IMPRESSION: 1. Cardiomegaly without radiographic evidence of congestive failure. 2. Large hiatal hernia. 3. Small pleural effusions with bibasilar scarring/atelectasis. ACT 112: Negative or not required by law. Electronically signed by: Semaj Luong M.D. 06/30/2021 3:21 PM Venous Doppler Study 06/30/21 14:23 ULTRASOUND BILATERAL LOWER EXTREMITY VENOUS CLINICAL HISTORY: Leg pain. COMPARISON STUDY: Bilateral lower extremity venous ultrasound dated 06/20/2021. TECHNIQUE: Real-time, grayscale, and color Doppler sonography of the deep veins of the right and left lower extremity was performed from the inguinal crease to the calf. Compression and augmentation were utilized. FINDINGS: There is no sonographic evidence of deep venous thrombosis identified in the right or left lower extremity. The common femoral, superficial femoral, and popliteal veins are patent and normally compressible bilaterally. The greater saphenous vein and the profunda femoris vein at the junction with the common femoral vein are clear in both legs. The visualized calf veins are patent bilaterally. There is a complex nonvascular fluid collection the right anterior mid to distal thigh which measures 17.1 x 3.0 x 3.9 cm. A second similar- appearing complex fluid collection in the right anterior upper thigh measures 11.6 x 5.0 x 7.0 cm. Soft tissue edema is present in both calves. IMPRESSION: 1. There is no sonographic evidence of deep venous thrombosis identified in the right or left lower extremity. 2. The 2 large complex nonvascular fluid collections in the right proximal and mid to distal thigh as detailed above have not significant changed as compared to 06/20/2021. These likely represent hematomas and clinical follow-up to resolution is recommended. ACT 112: Negative or not required by law. Electronically signed by: Semaj Luong M.D. 06/30/2021 7:15 PM Hip/Pelvis X-Ray 06/30/21 14:24 XR tibia fibula RT 2V, XR knee RT 1 or 2V routine, XR hip RT 2V w pelvis HISTORY: 81 years-old Female right tib fib fracture acute pain of the pelvis, right hip, knee, tibia and fibula COMPARISON: CT right hip 06/20/2021 TECHNIQUE: AP view of the pelvis with 2 views of the right hip, 2 views of the right knee with 2 views of the right tibia and fibula FINDINGS: HIP: Acute to subacute appearing displaced periprosthetic fracture of the right proximal femur redemonstrated. Right hip total joint arthroplasty. Demineralized appearance of the bones. Unchanged subacute to chronic appearing fracture deformities of the right superior and inferior pubic rami. Soft tissue swelling lateral to the right hip. Partially imaged hardware of the left proximal femur with at least moderate left hip osteoarthritis. Subacute to chronic appearing fracture deformity of the left intertrochanteric femur. KNEE: Demineralized appearance of the bones. There is an acute comminuted fracture of the proximal tibia which appears to involve both the medial and lateral tibial plateaus. The largest oblique fracture involves the medial metadiaphyseal distri bution. No significant cortical depression identified. There is an acute mildly comminuted and slightly displaced fracture of the fibular head and neck. Intact. Small lipohemarthrosis. Mild tricompartmental osteoarthritis of the knee. Arterial calcifications. Diffuse soft tissue prominence. TIBIA/FIBULA: Proximal tibia and fibula fractures as above. ORIF changes of the medial and lateral malleoli. No additional acute fracture or dislocation identified. Moder ate to severe osteoarthritis of the foot and ankle. IMPRESSION: 1. Acute comminuted fractures of the proximal tibia and fibula with only mild displacement. 2. Acute subacute appearing periprosthetic fracture of the right proximal femur is unchanged from 06/20/2021. 3. Small lipohemarthrosis of the right knee. ACT 112: Negative or not required by law. The above report was generated using voice recognition software. It may contain grammatical, syntax or spelling errors. Electronically signed by: Ezra Gillis M.D. 06/30/2021 3:25 PM Knee X-Ray 06/30/21 14:24 XR tibia fibula RT 2V, XR knee RT 1 or 2V routine, XR hip RT 2V w pelvis HISTORY: 81 years-old Female right tib fib fracture acute pain of the pelvis, right hip, knee, tibia and fibula COMPARISON: CT right hip 06/20/2021 TECHNIQUE: AP view of the pelvis with 2 views of the right hip, 2 views of the right knee with 2 views of the right tibia and fibula FINDINGS: HIP: Acute to subacute appearing displaced periprosthetic fracture of the right proximal femur redemonstrated. Right hip total joint arthroplasty. Demineralized appearance of the bones. Unchanged subacute to chronic appearing fracture deformities of the right superior and inferior pubic rami. Soft tissue swelling lateral to the right hip. Partially imaged hardware of the left proximal femur with at least moderate left hip osteoarthritis. Subacute to chronic appearing fracture deformity of the left intertrochanteric femur. KNEE: Demineralized appearance of the bones. There is an acute comminuted fracture of the proximal tibia which appears to involve both the medial and lateral tibial plateaus. The largest oblique fracture involves the medial metadiaphyseal distribution. No significant cortical depression identified. There is an acute mildly comminuted and slightly displaced fracture of the fibular head and neck. Intact. Small lipohemarthrosis. Mild tricompartmental osteoarthritis of the knee. Arterial calcifications. Diffuse soft tissue prominence. TIBIA/FIBULA: Proximal tibia and fibula fractures as above. ORIF changes of the medial and lateral malleoli. No additional acute fracture or dislocation identified. Moderate to severe osteoarthritis of the foot and ankle. IMPRESSION: 1. Acute comminuted fractures of the proximal tibia and fibula with only mild displacement. 2. Acute subacute appearing periprosthetic fracture of the right proximal femur is unchanged from 06/20/2021. 3. Small lipohemarthrosis of the right knee. ACT 112: Negative or not required by law. The above report was generated using voice recognition software. It may contain grammatical, syntax or spelling errors. Electronically signed by: Ezra Gillis M.D. 06/30/2021 3:25 PM Tibia/Fibula X-Ray 06/30/21 14:59 XR tibia fibula RT 2V, XR knee RT 1 or 2V routine, XR hip RT 2V w pelvis HISTORY: 81 years-old Female right tib fib fracture acute pain of the pelvis, right hip, knee, tibia and fibula COMPARISON: CT right hip 06/20/2021 TECHNIQUE: AP view of the pelvis with 2 views of the right hip, 2 views of the right knee with 2 views of the right tibia and fibula FINDINGS: HIP: Acute to subacute appearing displaced periprosthetic fracture of the right proximal femur redemonstrated. Right hip total joint arthroplasty. Demineralized appearance of the bones. Unchanged subacute to chronic appearing fracture deformities of the right superior and inferior pubic rami. Soft tissue swelling lateral to the right hip. Partially imaged hardware of the left proximal femur with at least moderate left hip osteoarthritis. Subacute to chronic appearing fracture deformity of the left intertrochanteric femur. KNEE: Demineralized appearance of the bones. There is an acute comminuted fracture of the proximal tibia which appears to involve both the medial and lateral tibial plateaus. The largest oblique fracture involves the medial metadiaphyseal distribution. No significant cortical depression identified. There is an acute mildly comminuted and slightly displaced fracture of the fibular head and neck. Intact. Small lipohemarthrosis. Mild tricompartmental osteoarthritis of the knee. Arterial calcifications. Diffuse soft tissue prominence. TIBIA/FIBULA: Proximal tibia and fibula fractures as above. ORIF changes of the medial and lateral malleoli. No additional acute fracture or dislocation identified. Moderate to severe osteoarthritis of the foot and ankle. IMPRESSION: 1. Acute comminuted fractures of the proximal tibia and fibula with only mild displacement. 2. Acute subacute appearing periprosthetic fracture of the right proximal femur is unchanged from 06/20/2021. 3. Small lipohemarthrosis of the right knee. ACT 112: Negative or not required by law. The above report was generated using voice recognition software. It may contain grammatical, syntax or spelling errors. Electronically signed by: Ezra Gillis M.D. 06/30/2021 3:25 PM Blood Pressure Blood Pressure Findings: Normal blood pressure Blood Pressure Disposition: did not require urgent referral Discharge Plan Visit Data Chief Complaint: Leg Injury/Pain Stated Complaint: R LEG PAIN,SWOLLEN ED Provider: Alysa Bangura Discharge Problem: Hematoma of right lower extremity, Fracture, tibia and fibula, proximal, Falls frequently Patient Disposition: Admitted As Inpatient Discharge Instructions Interventions: ED Discharge Assessment Last Done: 06/30/21 20:35 Discharge Problem: Hematoma of right lower extremity Qualifiers: Encounter type: initial encounter Qualified Code(s): S80.11XA - Contusion of right lower leg, initial encounter Fracture, tibia and fibula, proximal Qualifiers: Encounter type: initial encounter Fracture type: closed Laterality: right Qualified Code(s): S82.101A - Unspecified fracture of upper end of right tibia, initial encounter for closed fracture
[2021-07-01] MEDS: MoRPHine SULFATE 2 MG/ML CARP IV PRN ×5 (00:59→17:59)
[2021-07-01 07:37] LABS: Basophils # (auto) 0.05 K/uL (0-0.2); Basophils % (auto) 0.8 %; Eosinophils # (auto) 0.01 K/uL (0-0.5); Eosinophils % (auto) 0.2 %; Hematocrit (blood only) 29.5 % (37-47); Hemoglobin 9.6 g/dL (12.0-16.0); Immature Granulocytes # (auto) 0.02 K/uL (0.00-0.02); Immature Granulocytes % (auto) 0.3 %; Lymphocytes % (auto) 17.5 %; Mean Corpuscular Hemoglobin 36.9 pg (25-34); Mean Corpuscular Hgb Conc 32.5 g/dL (32-36); Mean Corpuscular Volume 113.5 fL (80-100); Mean Platelet Volume 8.5 fL (7.4-10.4); Monocytes # (auto) 0.83 K/uL (0.11-0.59); Monocytes % (auto) 13.2 %; Neutrophils # (auto) 4.27 K/uL (1.4-6.5); Platelet Count 333 K/uL (130-400); RDW Coefficient of Variation 15.7 % (11.5-14.5); RDW Standard Deviation 65.4 fL (36.4-46.3); White Blood Count 6.28 K/uL (4.8-10.8)
[2021-07-01 08:01] LABS: Macrocytosis Present; Polychromasia 1+; Stomatocytes 1+
[2021-07-01 08:11] LABS: BUN Creatinine Ratio 11.8 (10-20); Calcium 7.9 mg/dl (8.5-10.1); Creatinine Clr Calc Pharmacy 77.4 ml/min; Est GFR (African American) 103.8 ml/min; Est GFR (Non-African American) 89.5 ml/min; Magnesium 1.8 mg/dl (1.7-2.4); Potassium 4.6 mmol/L (3.5-5.1)
[2021-07-01] MEDS: FLECAINIDE ACETATE 100 MG TABLET PO SCH ×2 (08:18→20:25)
[2021-07-01] MEDS: DULoxetine HCL 60 MG CAP PO SCH (08:18)
[2021-07-01] MEDS: PANTOprazole 40 MG TAB PO SCH (08:18)
[2021-07-01] MEDS: dilTIAZem ER 120 MG CAPCR PO SCH (08:18)
--- NOTE | 2021-07-01 09:32 | Hospitalist Progress Note ---
Date of Service July 01, 2021 Assessment & Plan (1) Recurrent falls: Plan: -Hospitalized 06/09 - 06/10 after sustaining a GLF. Had a nonoperative periprosthetic fracture RLE. IP rehab recommended but she refused and signed out AMA. Was instructed to hold her Eliquis but did not do so. -Readmitted 06/20 - 06/22 d/t another fall and was found to have a rectus hemat mary and right intramuscular hemorrhage + acute L4 vertebral body fracture. Again. rehab recommended but she refused and signed out AMA -Additional fall took place when transferring the toilet wheelchair but it rolled out from under her causing her to fall sustaining a proximal tib/fib Fx (2) Fracture, tibia and fibula, proximal: Plan: -Acute comminuted fractures of the proximal tibia and fibula with mild displacement. -N/V intact -Ortho consulted-- appreciate assistance -Ortho reports this may be surgical and have ordered a CT for additional evaluation -would likely need to be NWB despite surgical or nonsurgical intervention -lengthy D/W pt regarding her inability to be home at this point. She will "think about rehab". Patient does have capacity to make medical decisions. (3) PAF (paroxysmal atrial fibrillation): Plan: -currently in NSR -Continue diltiazem, flecainide. -Eliquis has been held since 06/20/2021 due to R periprosthetic hip fx with subsequent hematoma. (4) Bilateral edema of lower extremity: Plan: -Was discharged on 06/22 with 20 mg Lasix every other day, with signs of improvement of bilateral lower extremity swelling as well as hematomas. -Bilateral venous Doppler study ordered in ED, no DVT noted, the 2 large complex nonvascular fluid collections in the right proximal and mid to distal thigh have not significant changed as compared to 06/20/2021. -Continue to monitor renal function while on diuretics. (5) Hypokalemia: Plan: -replaced/resolved (6) Hypomagnesemia: Plan: -replaced/resolved (7) Osteoporosis: Plan: -Vit D level 70 ng/ml WNL on last admission (06/20/21)--> acceptable (8) Hypertension: Plan: -Stable. -Continue diltiazem. (9) Hypercholesterolemia: Plan: -diet controlled (10) Depression: Plan: -Stable. -Continue Cymbalta (11) History of lobectomy of thyroid: Plan: -s/p lobectomy in 2019; TSH today 6.172, T4 .74--> subclinical hypothyroidism, without symptoms of hypothyroidism. -TSH last checked in 2019 was wnl. -likely component euthyroid sick. Recommend FU TSH:6-8 weeks Admission and Anticipated Discharge Date Admission Date: June 30, 2021 Subjective Patient seen on daily rounds today. This is her third hospitalization within the past 3 weeks. Hospitalized 06/09 through 06/10 after sustaining a ground-level fall. Had a nonoperative periprosthetic fracture. It was recommended she be discharged to rehab but she signed out AGAINST MEDICAL ADVICE. She was instructed to hold her Eliquis but did not do so. Readmitted 06/20 through 06/22 with a rectus hematoma and right intramuscular hemorrhage along with an acute L4 vertebral body fracture. She had sustained an additional ground-level fall. Again it was recommended she be discharged to rehab but she refused. She signed out AGAINST MEDICAL ADVICE. Was transferring to the chair when she reports the "chair slid out from under her" causing her to fall. She has an acute comminuted fracture of the proximal tib/fib with mild displacement. Reports no pain pending she does not move the leg. She denies fevers, chills, chest pain, shortness of breath, abdominal pain, nausea or vomiting. She is adamant about not going to a facility despite these recurrent falls and multiple fractures. After lengthy discussion, she will "think about it". She lives with a daughter in a one-story home. Review of Systems Review of Systems: All systems reviewed and are unremarkable except as noted in HPI and below Denies fevers, chills, headache, nasal congestion, sore throat, cough, chest pain, shortness of breath, palpitations, orthopnea, PND, abdominal pain, nausea, vomiting, diarrhea, constipation, dysuria, hematuria, frequency, back pain, joint pain or swelling, easy bruising or bleeding, skin lesions or rashes. Physical Exam Physical Exam: General: Resting comfortably in her hospital bed. NAD. HEENT: Head is AT/NC. Buccal mucosa is moist and pink Neck: No JVD. Negative hepatojugular reflex Cardiac: Currently in a normal sinus rhythm with 1/6 ROGELIO Lungs: CTA without W/R/R Abdomen: Normoactive X4. Soft and nontender in all quadrants. Extremities: Right lower extremity currently in a splint. Dorsalis pedis pulse intact. Capillary refill +2. Neuro: A&O X4. Cranial nerves II through XII are grossly intact. No focal neuro deficits Skin: No obvious skin lesions or rashes Psych: Appropriate affect. Pleasant and cooperative Results & Data Results & Data ([facility]) Vital Signs (Past 12 Hours) Vital Signs Temp Pulse Resp BP Pulse Ox 07/01/21 08:09 36.6 C 105 H 16 101/63 97 Laboratory Results 07/01/21 14:59 07/01/21 07:02 PG Care Time/CCT Total # of Minutes Spent Total Time Spent with Patient: Total time spent is greater than 50% in coordination of care (as documented) at patient's floor/unit and/or counseling patient: Coding Level of Care Code 49184 Subseq Hosp Care Lvl 2 Diagnoses Fracture, tibia and fibula, proximal S82.109A; S82.839A PAF (paroxysmal atrial fibrillation) I48.0 Bilateral edema of lower extremity R60.0 Hypokalemia E87.6 Hypomagnesemia E83.42 Osteoporosis M81.0 Hypertension I10 Hypercholesterolemia E78.00 Depression F32.9 History of lobectomy of thyroid Z90.09 Recurrent falls R29.6
--- NOTE | 2021-07-01 10:15 | Orthopedic Consultation ---
Date of Consultation July 01, 2021 Assessment & Plan (1) Fracture, tibia and fibula, proximal: X-rays reviewed. Right tibial plateau fracture with large medial fragment that has metadiaphyseal extension. Proximal fibular fracture. Ongoing periprosthetic hip fx involving the rigth greater trochanter. Case will be discussed with [facility]. [facility] scan has been ordered of the right tibia. Await results. Continue to hold [facility] at this time. I discussed this case with Merly Sheridan PA-C from hospitalist service. History of Present Illness Reason for Consultation: Right tibial plateau fracture Attending Physician: Josiah Aguilar History of Present Illness Patient is 81 year old female with PMH significant for paroxysmal atrial fibrillation, osteoporosis, vitamin D deficiency, HTN, hypercholesterolemia, GERD, depression, bilateral hip fractures, frequent falls, and right greater trochanter/periprosthetic femur fracture on 06/09/2021. Patient apparently has had multiple falls over this month. She was seen in the recent past for her above-noted periprosthetic femur fracture which was going to be treated conservatively. Patient states that she was transferring from her toilet to her wheelchair. Her wheelchair ended up shifting and she fell to the floor. She ended up landing on her right side and had immediate pain in her right knee which radiated down her leg. She denies hitting her head. She denies losing consciousness. There was no lightheadedness, dizziness, chest pain or shortness of breath prior to or after the fall. She was brought to the emergency room where she was seen by the staff. X-rays were taken and was found that she had a right tibial plateau fracture/proximal fibular fracture. She was admitted for further care by the [facility] hospitalist service and we have been asked to take care of her fracture. Currently she is sitting up in bed awake and alert. She states that her pain is controlled while at rest but moving the leg is very painful. She states she is having less pain in her right hip from her previous fall and fracture. She states that she has been using a wheelchair mostly around the house and to get around since her previous fall and her periprosthetic femur fracture. Prior to this, the patient was ambulatory. Patient also has a noted history of right BANDAR done by Dr. Kirk many years ago. Patient also had a history of a left hip fracture and required a TFN which she states was done in [place]. R ankle ORIF in the past as well. Patient has a history of being on Eliquis secondary to PAF. This has been held since her previous fall on 06/09/2021. Allergies Allergy/AdvReac Type Severity Reaction Status Date / Time No Known Allergies Allergy Verified 06/27/21 08:37 Home Medications Medication Instructions Recorded Confirmed Type vitamins A,C,O-qqgq-mjqayl 14,320 1 cap PO QAM 06/30/18 06/30/21 History unit-226 mg-200 unit capsule (PreserVision AREDS) tcstektc-vnl-hndmf acid 0.4 1 tab PO DAILY 09/10/20 06/30/21 History mg-lycopene 300 mcg-lutein 250 mcg tablet (Centrum Silver) nystatin 100,000 unit/gram topical 1 applic TOPICAL BID #30 g 11/15/20 06/30/21 Rx cream duloxetine 60 mg capsule,delayed 60 mg PO QAM #90 cap 01/21/21 06/30/21 Rx release omeprazole 40 mg capsule,delayed 40 mg PO QAM #90 cap 01/21/21 06/30/21 Rx release acetaminophen 500 mg tablet 1,000 mg PO Q6H PRN 06/08/21 06/30/21 History (Tylenol Extra Strength) furosemide 20 mg tablet 20 mg PO Q OTHER DAY #14 tab 06/22/21 06/30/21 Rx diltiazem HCl 120 mg capsule,24 120 mg PO QAM #90 cap 06/26/21 06/30/21 Rx hr,extended release flecainide 100 mg tablet 100 mg PO Q12H #180 tab 06/26/21 06/30/21 Rx oxycodone 5 mg tablet (Roxicodone) 5 mg PO Q8H PRN #30 tab 06/27/21 06/30/21 Rx Patient History Medical History Anemia Anxiety Chronic anticoagulation Chronic kidney disease, stage III (moderate) Cystic thyroid nodule Depression Diaphragmatic hernia Diastolic dysfunction Disc degeneration, lumbar Diverticulosis Fall GERD without esophagitis Grief Loss of spouse August 2018 Hypercholesterolemia Hypertension Lumbar spinal stenosis LVH (left ventricular hypertrophy) Macular degeneration Mitral regurgitation MODERATE Osteoarthritis Osteoporosis PAF (paroxysmal atrial fibrillation) Rheumatoid arthritis Right thyroid nodule Scoliosis Vitamin D deficiency Surgical History H/O bilateral oophorectomy B/L SALPINGOOPHORECTOMY= 04/12/17= GRADE VIEW 2, MAC 3, ETT 7.5 AT [facility] History of adenoidectomy History of cataract surgery RIGHT/LEFT History of hysterectomy (1988) History of open reduction and internal fixation (ORIF) procedure (1993) RIGHT ANKLE History of tonsillectomy History of tooth extraction History of total hip arthroplasty RIGHT Knee arthropathy w/ medial meniscus repair in 10/2017 S/P ORIF (open reduction internal fixation) fracture (~03/2021) Left Hip S/P thyroid surgery right thyroid lobectomy Dr. Thornton 01/06/19 Status post arthroscopic partial medial meniscectomy (11/02/17) R knee Family History Father Coronary heart disease Colorectal cancer Kidney disease Lung disease Mother Coronary heart disease Myocardial infarction Gallbladder disease Sister Diabetes Colorectal cancer Denies family history of Ovarian cancer Prostate cancer Breast cancer Social History Smoking Status: Never smoker Second Hand Exposure: Yes; Hx Alcohol Use: Yes Alcohol type: beer Alcohol Intake Frequency: 4 or More x per/Week Hx Substance Use: Yes Last Used Substance: Days (ago) Substance Use Type Other:: Oxycontin Preferred Language: Welsh Communication Ability: Effective Visual Impairment: No Limitations Hearing Ability: Use of Hearing Aid Analysis Intern Required: No Beliefs That Will Affect Care: None marital status: / marital status details: passed August 2018 Current Living Situation: Alone Current Living Situation Comment: Caregivers 4 hours per day current occupational status: retired current occupation: [employer] How many Children do You have: 2 Other Information That Helps Us Care for You: No Feels Safe at Home: Yes Safety Concerns: Feels Safe At This Time Childhood Exposure to Second-Hand Smoke: No Diet Comment: regular caffeine: Yes (1/2 cup a day) during the past year weight has: decreased > 10 lbs Dental Care, Regularly: Yes Physical Activity Frequency: Daily Seatbelt Use: always Sunscreen Use: No Assistive Devices: Walker Physical Exam Physical Exam: Patient is an 81-year-old white female who is alert and oriented x3, no acute distress, pleasant and cooperative. On exam of Right lower extremity, she has a noted long leg posterior splint with medial/lateral buttress splints. She is moving her toes well and has good sensation. Cap refills less than 2 seconds. She has moderate tenderness on palpation over the right knee. Anterior compartments feel soft and she states there is only mild tenderness noted on palpation. She has minimal to no pain on palpation of her right thigh. She has some mild tenderness over the right lateral hip. ROM of hip deferred due to increased knee pain with moving her lower extremity She denies pain in the left hip,knee, or ankle. Upper extremities are unaffected and she is nontender at the shoulders, elbows, and wrists. There is no gross motor or sensory loss seen at this time. She has no other complaints at this time. Results & Data ([facility]) Vital Signs (Past 12 Hours) Vital Signs Temp Pulse Resp BP Pulse Ox 07/01/21 08:09 36.6 C 105 H 16 101/63 97 Laboratory Results 07/01/21 07/01/21 06/30/21 Range/Units 07:02 07:02 16:35 WBC 6.28 (4.8-10.8) K/uL RBC 2.60 L (4.2-5.4) M/uL Hgb 9.6 L (12.0-16.0) g/dL Hct 29.5 L (37-47) % MCV 113.5 H (80-100) fL MCH 36.9 H (25-34) pg MCHC 32.5 (32-36) g/dL RDW Std Deviation 65.4 H (36.4-46.3) fL RDW Coeff of Tyra 15.7 H (11.5-14.5) % Plt Count 333 (130-400) K/uL MPV 8.5 (7.4-10.4) fL Immature Gran % (Auto) 0.3 % Neut % (Auto) 68.0 % Lymph % (Auto) 17.5 % [place] % (Auto) 13.2 % Eos % (Auto) 0.2 % Baso % (Auto) 0.8 % Neut # (Auto) 4.27 (1.4-6.5) K/uL Lymph # (Auto) 1.10 L (1.2-3.4) K/uL [place] # (Auto) 0.83 H (0.11-0.59) K/uL Eos # (Auto) 0.01 (0-0.5) K/uL Baso # (Auto) 0.05 (0-0.2) K/uL Immature Gran # (Auto) 0.02 (0.00-0.02) K/uL Polychromasia 1+ Macrocytosis Present Stomatocytes 1+ PT (9.0-12.0) Seconds INR (0.9-1.1) Sodium 136 (136-145) mmol/L Potassium 4.6 D 3.4 L (3.5-5.1) mmol/L Chloride 98 (98-107) mmol/L Carbon Dioxide 33 H (21-32) mmol/L Anion Gap 5 (3-11) BUN 6 (6-23) mg/dl Creatinine 0.51 L (0.6-1.2) mg/dl Est Cr Clr Drug Dosing 77.4 Est GFR ( Amer) 103.8 ml/min Est GFR (Non-Af Amer) 89.5 ml/min BUN/Creatinine Ratio 11.8 (10-20) Glucose 91 (70-99(Fasting)) mg/dl Calcium 7.9 L (8.5-10.1) mg/dl Magnesium 1.8 (1.7-2.4) mg/dl Total Bilirubin (0.2-1.0) mg/dl AST 21 (13-39) U/L ALT (7-52) U/L Alkaline Phosphatase (34-104) U/L Total Protein (6.0-8.3) gm/dl Albumin (3.4-5.0) gm/dl Globulin (2.5-4.0) gm/dl Albumin/Globulin Ratio (0.9-2) TSH (0.300-4.500) uIu/ml Free T4 (0.61-1.60) ng/dl Urine Color Urine Appearance (Clear) Urine pH (4.5-7.5) Ur Specific Bay (1.000-1.030) Urine Protein (Negative) Urine Glucose (UA) (Negative) Urine Ketones (Negative) Urine Blood (Negative) Urine Nitrite (Negative) Urine Bilirubin (Negative) Urine Urobilinogen (Negative) Ur Leukocyte Esterase (Negative) SARS-CoV-2, RNA, NAAT (NEGATIVE) 06/30/21 06/30/21 06/30/21 Range/Units 16:20 14:50 14:39 WBC (4.8-10.8) K/uL RBC (4.2-5.4) M/uL Hgb (12.0-16.0) g/dL Hct (37-47) % MCV (80-100) fL MCH (25-34) pg MCHC (32-36) g/dL RDW Std Deviation (36.4-46.3) fL RDW Coeff of Tyra (11.5-14.5) % Plt Count (130-400) K/uL MPV (7.4-10.4) fL Immature Gran % (Auto) % Neut % (Auto) % Lymph % (Auto) % [place] % (Auto) % Eos % (Auto) % Baso % (Auto) % Neut # (Auto) (1.4-6.5) K/uL Lymph # (Auto) (1.2-3.4) K/uL [place] # (Auto) (0.11-0.59) K/uL Eos # (Auto) (0-0.5) K/uL Baso # (Auto) (0-0.2) K/uL Immature Gran # (Auto) (0.00-0.02) K/uL Polychromasia Macrocytosis Stomatocytes PT (9.0-12.0) Seconds INR (0.9-1.1) Sodium (136-145) mmol/L Potassium (3.5-5.1) mmol/L Chloride (98-107) mmol/L Carbon Dioxide (21-32) mmol/L Anion Gap (3-11) BUN (6-23) mg/dl Creatinine (0.6-1.2) mg/dl Est Cr Clr Drug Dosing Est GFR ( Amer) ml/min Est GFR (Non-Af Amer) ml/min BUN/Creatinine Ratio (10-20) Glucose (70-99(Fasting)) mg/dl Calcium (8.5-10.1) mg/dl Magnesium (1.7-2.4) mg/dl Total Bilirubin (0.2-1.0) mg/dl AST (13-39) U/L ALT (7-52) U/L Alkaline Phosphatase (34-104) U/L Total Protein (6.0-8.3) gm/dl Albumin (3.4-5.0) gm/dl Globulin (2.5-4.0) gm/dl Albumin/Globulin Ratio (0.9-2) TSH 6.172 H (0.300-4.500) uIu/ml Free T4 0.74 (0.61-1.60) ng/dl Urine Color Yellow Urine Appearance Clear (Clear) Urine pH 5.5 (4.5-7.5) Ur Specific Bay 1.007 (1.000-1.030) Urine Protein Negative (Negative) Urine Glucose (UA) Negative (Negative) Urine Ketones Negative (Negative) Urine Blood Negative (Negative) Urine Nitrite Negative (Negative) Urine Bilirubin Negative (Negative) Urine Urobilinogen Negative (Negative) Ur Leukocyte Esterase Negative (Negative) SARS-CoV-2, RNA, NAAT NEGATIVE (NEGATIVE) 06/30/21 06/30/21 06/30/21 Range/Units 14:39 14:39 14:39 WBC 10.49 (4.8-10.8) K/uL RBC 3.13 L (4.2-5.4) M/uL Hgb 11.2 L (12.0-16.0) g/dL Hct 34.6 L (37-47) % MCV 110.5 H (80-100) fL MCH 35.8 H (25-34) pg MCHC 32.4 (32-36) g/dL RDW Std Deviation 63.2 H (36.4-46.3) fL RDW Coeff of Tyra 15.7 H (11.5-14.5) % Plt Count 434 H (130-400) K/uL MPV 8.3 (7.4-10.4) fL Immature Gran % (Auto) 0.2 % Neut % (Auto) 77.0 % Lymph % (Auto) 13.0 % [place] % (Auto) 9.3 % Eos % (Auto) 0.1 % Baso % (Auto) 0.4 % Neut # (Auto) 8.08 H (1.4-6.5) K/uL Lymph # (Auto) 1.36 (1.2-3.4) K/uL [place] # (Auto) 0.98 H (0.11-0.59) K/uL Eos # (Auto) 0.01 (0-0.5) K/uL Baso # (Auto) 0.04 (0-0.2) K/uL Immature Gran # (Auto) 0.02 (0.00-0.02) K/uL Polychromasia Macrocytosis Present Stomatocytes PT 11.2 (9.0-12.0) Seconds INR 1.1 (0.9-1.1) Sodium 132 L (136-145) mmol/L Potassium (3.5-5.1) mmol/L Chloride 95 L (98-107) mmol/L Carbon Dioxide 28 (21-32) mmol/L Anion Gap 9 (3-11) BUN 6 (6-23) mg/dl Creatinine 0.54 L (0.6-1.2) mg/dl Est Cr Clr Drug Dosing Not Reportable Est GFR ( Amer) 101.9 ml/min Est GFR (Non-Af Amer) 87.9 ml/min BUN/Creatinine Ratio 11.1 (10-20) Glucose 85 (70-99(Fasting)) mg/dl Calcium 8.1 L (8.5-10.1) mg/dl Magnesium 1.6 L (1.7-2.4) mg/dl Total Bilirubin 1.0 (0.2-1.0) mg/dl AST (13-39) U/L ALT 17 (7-52) U/L Alkaline Phosphatase 148 H (34-104) U/L Total Protein 5.6 L (6.0-8.3) gm/dl Albumin 3.0 L (3.4-5.0) gm/dl Globulin 2.6 (2.5-4.0) gm/dl Albumin/Globulin Ratio 1.2 (0.9-2) TSH (0.300-4.500) uIu/ml Free T4 (0.61-1.60) ng/dl Urine Color Urine Appearance (Clear) Urine pH (4.5-7.5) Ur Specific [place] (1.000-1.030) Urine Protein (Negative) Urine Glucose (UA) (Negative) Urine Ketones (Negative) Urine Blood (Negative) Urine Nitrite (Negative) Urine Bilirubin (Negative) Urine Urobilinogen (Negative) Ur Leukocyte Esterase (Negative) SARS-CoV-2, RNA, NAAT (NEGATIVE) Diagnostic Findings Patient:WARREN GUZMAN Admit Date:06/30/21 MR#:[id number] Address1:[address] Acct ID:[id number] Address2:[facility] [address] Date:1940 [facility] Zip:[place] [address] Age:81 Location:ED Sex:F Room/Bed: Att Phy: Diagnosis:R LEG PAIN,SWOLLEN Julianna Phy:Kimber Prater DO Service Date:06/30/21 Fam Phy: Interpreting Phy:Ezra GillisAdmit Phy: Ordering Phy:Srinivas Jacob M.D. cc: ~ XR tibia fibula RT 2V, XR knee RT 1 or 2V routine, XR hip RT 2V w pelvis HISTORY: 81 years-old Female right tib fib fracture acute pain of the pelvis, right hip, knee, tibia and fibula COMPARISON: CT right hip 06/20/2021 TECHNIQUE: AP view of the pelvis with 2 views of the right hip, 2 views of the right knee with 2 views of the right tibia and fibula FINDINGS: HIP: Acute to subacute appearing displaced periprosthetic fracture of the right proximal femur redemonstrated. Right hip total joint arthroplasty. Demineralized appearance of the bones. Unchanged subacute to chronic appearing fracture deformities of the right superior and inferior pubic rami. Soft tissue swelling lateral to the right hip. Partially imaged hardware of the left proximal femur with at least moderate left hip osteoarthritis. Subacute to chronic appearing fracture deformity of the left intertrochanteric femur. KNEE: Demineralized appearance of the bones. There is an acute comminuted fracture of the proximal tibia which appears to involve both the medial and lateral tibial plateaus. The largest oblique fracture involves the medial metadiaphyseal distribution. No significant cortical depression identified. There is an acute mildly comminuted and slightly displaced fracture of the fibular head and neck. Intact. Small lipohemarthrosis. Mild tricompartmental osteoarthritis of the knee. Arterial calcifications. Diffuse soft tissue prominence. TIBIA/FIBULA: Proximal tibia and fibula fractures as above. ORIF changes of the medial and lateral malleoli. No additional acute fracture or dislocation identified. Moderate to severe osteoarthritis of the foot and ankle. IMPRESSION: 1. Acute comminuted fractures of the proximal tibia and fibula with only mild displacement. 2. Acute subacute appearing periprosthetic fracture of the right proximal femur is unchanged from 06/20/2021. 3. Small lipohemarthrosis of the right knee.
--- NOTE | 2021-07-01 10:40 | Electrocardiogram Report ---
Test Reason : Blood Pressure : / mmHG Vent. Rate : 091 BPM Atrial Rate : 091 BPM P-R Int : 258 ms QRS Dur : 098 ms QT Int : 512 ms P-R-T Axes : 084 -27 096 degrees QTc Int : 629 ms Sinus rhythm with 1st degree A-V block Poor R wave progression, consider anterior MT vs. lead placement vs. LVH Leftward axis Abnormal ECG When compared with ECG of 20-JUN-2021 16:08, AK interval has increased Nonspecific T wave abnormality now evident in Inferior leads QT has lengthened Confirmed by Kavon Monterroso ([id number]) on 07/01/2021 10:39:56 AM Referred By: REFERRED SELF Confirmed By:Kavon Monterroso
--- NOTE | 2021-07-01 11:45 | CT Scan Report ---
CT tib/fib RT wo con CLINICAL HISTORY: Tibial Plateau Fx with distal extension TECHNIQUE: Multidetector row helical CT of the right tibia and fibula was performed without intraveno us contrast. Coronal and sagittal reformations were obtained. Automated dose lowering techniques and/ or adjustment according to patient size were utilized for this examination. Comparison: Comparison is made to radiographs of the tibia and fibula 06/30/2021 FINDINGS: Comminuted essentially nondisplaced fracture of the bilateral tibial plateau with extension into the diaphysis. Impacted fracture of the proximal fibular head. Plate and screw fixation is seen about the ankle joint. No joint effusion is seen. Mild soft tissue swelling is seen of the proximal leg. Vasc ular calcifications are seen. Partial visualization of a suprapatellar lipohemarthrosis. IMPRESSION: 1. Comminuted fractures of the tibial plateau with extension into the diaphysis. Impacted fracture o f the fibular head. Findings are unchanged from 06/22/2021. 2. Associated soft tissue swelling about the proximal leg. 3. Partial visualization of lipohemarthrosis about the knee. ACT 112: Negative or not required by law. Electronically signed by: Rylan Santacruz M.D. 07/01/2021 11:44 AM
[2021-07-01] MEDS: CEROVITE ADV FORMULA TAB PO SCH (12:45)
[2021-07-01 15:17] LABS: Hematocrit (blood only) 28.1 % (37-47)
[2021-07-01 15:41] LABS: Iron 29 mcg/dl (35-150); Unsaturated Iron Binding Cap 100 mcg/dl (155-355)
[2021-07-01 16:00] LABS: Ferritin 268.4 ng/ml (8-388)
[2021-07-02] MEDS: PANTOprazole 40 MG TAB PO SCH (08:53)
[2021-07-02] MEDS: CEROVITE ADV FORMULA TAB PO SCH (08:53)
[2021-07-02] MEDS: FLECAINIDE ACETATE 100 MG TABLET PO SCH ×2 (08:54→20:18)
[2021-07-02] MEDS: dilTIAZem ER 120 MG CAPCR PO SCH (08:54)
[2021-07-02] MEDS: DULoxetine HCL 60 MG CAP PO SCH (08:54)
[2021-07-02] MEDS: FUROSEMIDE 20 MG TAB PO SCH (08:54)
[2021-07-02] MEDS: ACETAMINOPHEN 500 MG TAB PO PRN (08:55)
[2021-07-02 09:08] LABS: Hematocrit (blood only) 27.2 % (37-47); Hemoglobin 8.9 g/dL (12.0-16.0); Mean Corpuscular Hemoglobin 37.1 pg (25-34); Mean Corpuscular Hgb Conc 32.7 g/dL (32-36); Mean Corpuscular Volume 113.3 fL (80-100); Mean Platelet Volume 8.5 fL (7.4-10.4); Platelet Count 314 K/uL (130-400); RDW Standard Deviation 62.3 fL (36.4-46.3); White Blood Count 7.29 K/uL (4.8-10.8)
[2021-07-02 09:34] LABS: BUN Creatinine Ratio 18.8 (10-20); Calcium 8.1 mg/dl (8.5-10.1); Creatinine Clr Calc Pharmacy 82.3 ml/min; Est GFR (African American) 105.9 ml/min; Est GFR (Non-African American) 91.4 ml/min; Magnesium 1.6 mg/dl (1.7-2.4); Potassium 4.3 mmol/L (3.5-5.1)
[2021-07-02 09:52] LABS: Transferrin < 95 mg/dl (200-360)
[2021-07-02] MEDS ORDERED: IRON SUCROSE 300 MG in SODIUM CHLORIDE 0.9% 250 ML IV ONE (14:30)
--- NOTE | 2021-07-02 16:02 | Communication Note ---
Date of Service: July 02, 2021 Patient seen this afternoon. I had spoken to Abhishek nazario from orthotics. Hinged knee orthosis has been placed on the right lower extremity. He states th at the patient tolerated quite well and she is happy with the fit of her brace. Currently she is awake alert and comfortable. Pain is controlled. She has no complaints. We discussed the fact she would have to continue full extension in the brace until seen back in the office. Plans would be to start gentle range of motion possibly 4 to [address] We discussed that she might be nonweightbearing for up to 6 to 8 weeks at least. Patient understands and is agreeable. We discussed that she would need to continue PT and OT here to work on her ambulation but that she might need to go to a rehab type facility prior to going home. Patient understands. Follow-up with Dr. Enciso in 2 weeks. Ortho will sign off for now. Call with any questions. If her brace needs adjusted, please call Abhishek Reynoso from Orthotics.
[2021-07-02] MEDS ORDERED: CYANOCOBALAMIN 1000 MCG/ML VIAL IM ONE (17:28)
--- NOTE | 2021-07-02 17:37 | Hospitalist Progress Note ---
Date of Service July 02, 2021 Assessment & Plan (1) Recurrent falls: Plan: -Hospitalized 06/09 - 06/10 after sustaining a GLF. Had a nonoperative periprosthetic fracture RLE. IP rehab recommended but she refused and signed out AMA. Was instructed to hold her Eliquis but did not do so. -Readmitted 06/20 - 06/22 d/t another fall and was found to have a rectus hemat mary and right intramuscular hemorrhage + acute L4 vertebral body fracture. Again. rehab recommended but she refused and signed out AMA -Additional fall took place when transferring the toilet wheelchair but it rolled out from under her causing her to fall sustaining a proximal tib/fib Fx (2) Fracture, tibia and fibula, proximal: Plan: -Acute comminuted fractures of the proximal tibia and fibula with mild displacement--> likely Osteoporotic -N/V intact -Ortho consulted-- appreciate assistance -CT obtained for additional evaluation: Comminuted fractures of the tibial plateau with extension into the diaphysis. Impacted fracture of the fibular head. Soft tissue swelling. No joint effusion. -Has since been seen by orthopedics, and for now, taking a nonoperative approach. In a hinged knee brace with nonweightbearing status for approximately 6-8 weeks -lengthy D/W pt regarding her inability to be home at this point. She has been refusing rehab but given the nonweightbearing status, understands the risk of going home and is agreeable to rehab at this time. CM on board (3) Anemia: Plan: - hgb on arrival was 11.2. Currently down to 8.9 - exact etiology unclear at this time--> suspect mutifactorial - has been OFF eliquis since 06/20 (last hospitalization) when she was found to have a rectus hematoma and right intramuscular hemorrhage. Repeat imaging shows improvement of both of these - Does take Protonix for GI prophylaxis. Denies melena or hematochezia - Iron low: 20. Given IV Venofer today and start on oral supplementation - TIBC low: 100 - Ferritin: 268 - B12 low level of of normal: 424--> IM cyanocobalamin today with oral supplem entation tomorrow. FU B12 in 3 months - Does have dx of stage III CKD. Could have a component of anemia of chronic disease. Erythropoietin level obtained - Fecal occult blood orderedpending - Continue to trend labs (4) PAF (paroxysmal atrial fibrillation): Plan: -currently in NSR -Continue diltiazem, flecainide. -Eliquis has been held since 06/20/2021 due to R periprosthetic hip fx with subsequent hematoma. (5) Bilateral edema of lower extremity: Plan: -Was discharged on 06/22 with 20 mg Lasix every other day, with signs of improvement of bilateral lower extremity swelling as well as hematomas. -Bilateral venous Doppler study ordered in ED, no DVT noted, the 2 large complex nonvascular fluid collections in the right proximal and mid to distal thigh have not significant changed as compared to 06/20/2021. -Continue to monitor renal function while on diuretics. (6) Hypokalemia: Plan: -replaced/resolved (7) Hypomagnesemia: Plan: -replaced/resolved (8) Osteoporosis: Plan: -Vit D level 70 ng/ml WNL on last admission (06/20/21)--> acceptable (9) Hypertension: Plan: -Stable. -Continue diltiazem. (10) Hypercholesterolemia: Plan: -diet controlled (11) Depression: Plan: -Stable. -Continue Cymbalta (12) History of lobectomy of thyroid: Plan: -s/p lobectomy in 2019; TSH today 6.172, T4 .74--> subclinical hypothyroidism, without symptoms of hypothyroidism. -TSH last checked in 2019 was wnl. -likely component euthyroid sick. Recommend FU TSH:6-8 weeks Plan: Currently nonweightbearing status. Case management consulted as patient will need acute rehab. Admission and Anticipated Discharge Date Admission Date: June 30, 2021 Subjective Patient seen on daily rounds today. Vocalizes no significant pain in her knee. Has been seen by orthopedics and plan is for nonsurgical approach. Patient will need to be nonweightbearing with or without surgery. They are planning for a knee immobilizer. Patient will need to be nonweightbearing for approximately 8 to 12 weeks. Review of Systems Review of Systems: All systems reviewed and are unremarkable except as noted in HPI and below Denies fevers, chills, headache, nasal congestion, sore throat, cough, chest pain, shortness of breath, palpitations, orthopnea, PND, abdominal pain, nausea, vomiting, diarrhea, constipation, dysuria, hematuria, frequency, back pain, joint pain or swelling, easy bruising or bleeding, skin lesions or rashes. Physical Exam Physical Exam: General: Resting comfortably in her hospital bed. NAD. HEENT: Head is AT/NC. Buccal mucosa is moist and pink Neck: No JVD. Negative hepatojugular reflex Cardiac: Currently in a normal sinus rhythm with 1/6 ROGELIO Lungs: CTA without W/R/R Abdomen: Normoactive X4. Soft and nontender in all quadrants. Extremities: Right lower extremity currently in a splint. Dorsalis pedis pulse intact. Capillary refill +2. Neuro: A&O X4. Cranial nerves II through XII are grossly intact. No focal neuro deficits Skin: No obvious skin lesions or rashes Psych: Appropriate affect. Pleasant and cooperative Results & Data Results & Data ([facility]) Vital Signs (Past 12 Hours) Vital Signs Temp Pulse Resp BP Pulse Ox 07/02/21 17:04 36.9 C 85 16 128/75 94 07/02/21 16:13 37 C 81 16 131/67 94 07/02/21 15:41 36.6 C 81 18 126/72 91 07/02/21 07:28 36.6 C 84 18 148/79 H 93 Laboratory Results 07/02/21 08:00 07/02/21 08:00 PG Care Time/CCT Total # of Minutes Spent Total Time Spent with Patient: Total time spent is greater than 50% in coordination of care (as documented) at patient's floor/unit and/or counseling patient: Coding Level of Care Code 79727 Subseq Hosp Care Lvl 2 Diagnoses Recurrent falls R29.6 Fracture, tibia and fibula, proximal S82.101A; S82.831A Encounter type: initial encounter Fracture type: closed Laterality: right PAF (paroxysmal atrial fibrillation) I48.0 Bilateral edema of lower extremity R60.0 Hypokalemia E87.6 Hypomagnesemia E83.42 Osteoporosis M81.0 Hypertension I10 Hypercholesterolemia E78.00 Depression F32.9 History of lobectomy of thyroid Z90.09 Anemia D64.9 Anemia type: unspecified type (1) Fracture, tibia and fibula, proximal Encounter type: initial encounter Fracture type: closed Laterality: right Qualified Code(s): S82.101A - Unspecified fracture of upper end of right tibia, initial encounter for closed fracture; S82.831A - Other fracture of upper and lower end of right fibula, initial encounter for closed fracture (2) Anemia Anemia type: unspecified type Qualified Code(s): D64.9 - Anemia, unspecified
[2021-07-02] MEDS ORDERED: LORazepam 0.5 MG TAB PO PRN (18:18)
[2021-07-02 18:35] LABS: Reticulocyte % 5.1 % (0.5-2.0); Reticulocytes # 0.12 10^6/uL (0.02-0.10)
[2021-07-02 18:36] LABS: Hematocrit (blood only) 26.9 % (37-47); Hemoglobin 8.7 g/dL (12.0-16.0)
[2021-07-03 08:14] LABS: Hematocrit (blood only) 28.7 % (37-47); Hemoglobin 9.4 g/dL (12.0-16.0); Mean Corpuscular Hemoglobin 36.4 pg (25-34); Mean Corpuscular Hgb Conc 32.8 g/dL (32-36); Mean Corpuscular Volume 111.2 fL (80-100); Mean Platelet Volume 8.4 fL (7.4-10.4); Platelet Count 317 K/uL (130-400); RDW Coefficient of Variation 14.8 % (11.5-14.5); RDW Standard Deviation 60.9 fL (36.4-46.3); Red Blood Count 2.58 M/uL (4.2-5.4); White Blood Count 6.52 K/uL (4.8-10.8)
[2021-07-03 08:29] LABS: BUN Creatinine Ratio 13.6 (10-20); Calcium 8.2 mg/dl (8.5-10.1); Creatinine Clr Calc Pharmacy 91.3 ml/min; Magnesium 1.5 mg/dl (1.7-2.4); Potassium 3.8 mmol/L (3.5-5.1)
[2021-07-03] MEDS ORDERED: ENOXAPARIN INJ 30 MG/0.3 ML SYR SQ SCH (09:00)
[2021-07-03] MEDS: MAGNESIUM SULFATE / D5W 1 GM/100 ML BAG IV SCH ×2 (09:18→11:31)
[2021-07-03] MEDS: CYANOCOBALAMIN (B-12) 500 MCG TABLET PO SCH (09:26)
[2021-07-03] MEDS: DULoxetine HCL 60 MG CAP PO SCH (09:27)
[2021-07-03] MEDS: ACETAMINOPHEN 500 MG TAB PO PRN (09:27)
[2021-07-03] MEDS: FLECAINIDE ACETATE 100 MG TABLET PO SCH ×2 (09:27→20:34)
[2021-07-03] MEDS: PANTOprazole 40 MG TAB PO SCH (09:27)
[2021-07-03] MEDS: dilTIAZem ER 120 MG CAPCR PO SCH (09:27)
[2021-07-03] MEDS: CEROVITE ADV FORMULA TAB PO SCH (09:27)
[2021-07-03] MEDS: FERROUS SULFATE 325 MG/7.4 ML UDP PO SCH (11:31)
--- NOTE | 2021-07-03 14:51 | Hospitalist Progress Note ---
Date of Service July 03, 2021 Assessment & Plan (1) Recurrent falls: Plan: -Hospitalized 06/09 - 06/10 after sustaining a GLF. Had a nonoperative periprosthetic fracture RLE. IP rehab recommended but she refused and signed out AMA. Was instructed to hold her Eliquis but did not do so. -Readmitted 06/20 - 06/22 d/t another fall and was found to have a rectus hemato ma and right intramuscular hemorrhage + acute L4 vertebral body fracture. Again, rehab recommended but she refused and signed out AMA -Additional fall took place when transferring the toilet wheelchair but it rolled out from under her causing her to fall sustaining a proximal tib/fib Fx (2) Fracture, tibia and fibula, proximal: Plan: -Acute comminuted fractures of the proximal tibia and fibula with mild displacement--> likely Osteoporotic -N/V intact -Ortho consulted-- appreciate assistance -CT obtained for additional evaluation: Comminuted fractures of the tibial plateau with extension into the diaphysis. Impacted fracture of the fibular head. Soft tissue swelling. No joint effusion. -Has since been seen by orthopedics, and for now, taking a nonoperative approach. In a hinged knee brace with nonweightbearing status for approximately 6-8 weeks -lengthy D/W pt regarding her inability to be home at this point. She has been refusing rehab but given the nonweightbearing status, understands the risk of going home and is agreeable to rehab at this time. CM on board. -D/C Morphine and Toradol. Initiate Tramadol 50mg q4h PRN moderate pain. (3) Anemia: Plan: -hgb on arrival was 11.2. Currently down to 8.9 -exact etiology unclear at this time--> suspect mutifactorial -has been OFF eliquis since 06/20 (last hospitalization) when she was found to have a rectus hematoma and right intramuscular hemorrhage. Repeat imaging shows improvement of both of these -Does take Protonix for GI prophylaxis. Denies melena or hematochezia -Iron low: 29. Given IV Venofer today and start on oral supplementation -TIBC low: 100 -Ferritin: 268 -B12 low level of of normal: 424--> IM cyanocobalamin today with oral supplementation tomorrow. FU B12 in 3 months -Does have dx of stage III CKD. Could have a component of anemia of chronic disease. Erythropoietin level obtained -Fecal occult blood orderednegative -Continue to trend labs, H&H stable (4) PAF (paroxysmal atrial fibrillation): Plan: -currently in NSR -Continue diltiazem, flecainide. -Eliquis has been held since 06/20/2021 due to R periprosthetic hip fx with subsequent hematoma. (5) Bilateral edema of lower extremity: Plan: -Was discharged on 06/22 with 20 mg Lasix every other day, with signs of improvement of bilateral lower extremity swelling as well as hematomas. -Bilateral venous Doppler study ordered in ED, no DVT noted, the 2 large complex nonvascular fluid collections in the right proximal and mid to distal thigh have not significant changed as compared to 06/20/2021. -Continue to monitor renal function while on diuretics. (6) Hypokalemia: Plan: -replaced/resolved (7) Hypomagnesemia: Plan: -Mag 1.5 today, replacement ordered -Repeat level in AM (8) Osteoporosis: Plan: -Vit D level 70 ng/ml WNL on last admission (06/20/21)--> acceptable (9) Hypertension: Plan: -Stable. -Continue diltiazem. (10) Hypercholesterolemia: Plan: -diet controlled (11) Depression: Plan: -Stable. -Continue Cymbalta (12) History of lobectomy of thyroid: Plan: -s/p lobectomy in 2019; TSH today 6.172, T4 0.74--> subclinical hypothyroidism, without symptoms of hypothyroidism. -TSH last checked in 2019 was wnl. -likely component euthyroid sick. Recommend FU TSH:6-8 weeks Plan: Currently nonweightbearing status. Case management consulted as patient will need acute rehab. Pt argumentative today as outlined in the HPI. D/w case management. If no one able to pick patient up and take responsibility for her fr om home including a family or friend, unfortunately pt will need to go to the first available rehab bed that has accepted pt once authorization from insurance is received. Case management to talk w/ patient again this afternoon. Medically stable for d/c. Mag supplemented as above, repeat level in AM and initiate oral supplementation. Admission and Anticipated Discharge Date Admission Date: June 30, 2021 Subjective Patient seen on daily rounds today. Vocalizes no significant pain in her knee. Has been seen by orthopedics and plan is for nonsurgical approach. Patient will need to be nonweightbearing with or without surgery. Hinged knee orthosis has been placed and locked in extension. Patient will need to be nonweightbearing for approximately 6-8 weeks at least per ortho's note. Pt is extremely argumentative today, she insists that she does not want to go to rehab unless she is allowed to leave and go home on the weekends. She insists that she needs to "be there to take care of her animals" and that they "need her." She notes that her daughter and granddaughter are "moving in and out" but she doesn't trust them to take care of her pets. She also has a neighbor that looks in on her during the day while her daughter is at work. Review of Systems Review of Systems: All systems reviewed and are unremarkable except as noted in HPI and below Denies fevers, chills, headache, nasal congestion, sore throat, cough, chest pain, shortness of breath, palpitations, orthopnea, PND, abdominal pain, nausea, vomiting, diarrhea, constipation, dysuria, hematuria, frequency, back pain, joint pain or swelling, easy bruising or bleeding, skin lesions or rashes. Physical Exam Physical Exam: GENERAL: Well-developed, well-nourished 81 yo elderly WF. NAD. LUNGS: Clear to auscultation bilaterally. No accessory muscle use. No W/R/R. CARDIOVASCULAR: Regular rate and rhythm. No M/G/R. No JVD. ABDOMEN: Soft, non-tender and non-distended. BS normal x 4 quad. EXTREMITIES: No edema. Non-tender. Peripheral pulses +2/4. Right LE in knee brace. NEUROLOGIC: A&O x3. PSYCHIATRIC: Cooperative. Appropriate mood and affect. SKIN: Warm, dry, intact. No rashes or lesions. Results & Data Results & Data ([facility]) Vital Signs (Past 12 Hours) Vital Signs Temp Pulse Resp BP Pulse Ox 07/03/21 07:35 36.7 C 94 H 16 130/76 92 Laboratory Results 07/03/21 07:48 07/03/21 07:48 PG Care Time/CCT Total # of Minutes Spent Total Time Spent with Patient: Total time spent is greater than 50% in coordination of care (as documented) at patient's floor/unit and/or counseling patient: Coding Level of Care Code 75514 Subseq Hosp Care Lvl 2 Diagnoses Recurrent falls R29.6 Fracture, tibia and fibula, proximal S82.101A; S82.831A Encounter type: initial encounter Fracture type: closed Laterality: right Anemia D64.9 Anemia type: unspecified type PAF (paroxysmal atrial fibrillation) I48.0 Bilateral edema of lower extremity R60.0 Hypokalemia E87.6 Hypomagnesemia E83.42 Osteoporosis M81.0 Hypertension I10 Hypercholesterolemia E78.00 Depression F32.9 History of lobectomy of thyroid Z90.09 (1) Fracture, tibia and fibula, proximal Encounter type: initial encounter Fracture type: closed Laterality: right Qualified Code(s): S82.101A - Unspecified fracture of upper end of right tibia, initial encounter for closed fracture; S82.831A - Other fracture of upper and lower end of right fibula, initial encounter for closed fracture (2) Anemia Anemia type: unspecified type Qualified Code(s): D64.9 - Anemia, unspecified
[2021-07-03] MEDS ORDERED: traMADol HCL 50 MG TABLET PO PRN (15:08)
[2021-07-03] MEDS: MAGNESIUM OXIDE 400 MG TAB PO SCH (20:35)
[2021-07-04] MEDS: FLECAINIDE ACETATE 100 MG TABLET PO SCH (08:46)
[2021-07-04] MEDS: MAGNESIUM OXIDE 400 MG TAB PO SCH (08:46)
[2021-07-04] MEDS: dilTIAZem ER 120 MG CAPCR PO SCH (08:46)
[2021-07-04] MEDS: CYANOCOBALAMIN (B-12) 500 MCG TABLET PO SCH (08:47)
[2021-07-04] MEDS: CEROVITE ADV FORMULA TAB PO SCH (08:47)
[2021-07-04] MEDS: DULoxetine HCL 60 MG CAP PO SCH (08:50)
[2021-07-04] MEDS: PANTOprazole 40 MG TAB PO SCH (08:51)
[2021-07-04] MEDS: FERROUS SULFATE 325 MG/7.4 ML UDP PO SCH (08:51)
[2021-07-04] MEDS: FUROSEMIDE 20 MG TAB PO SCH (08:53)
--- NOTE | 2021-07-04 10:57 | Discharge Summary ---
Date of Service July 04, 2021 Admission HPI Per Admitting Provider Patient is 81 year old female with PMH significant for paroxysmal atrial fibrillation, osteoporosis, vitamin D deficiency, HTN, hypercholesterolemia, GERD, depression, bilateral hip fractures, frequent falls, and right p eriprosthetic hip fracture on 06/09/21 who presents today from home after an unwitnessed ground-level fall. Patient states she was transferring from her toilet to her wheelchair when the wheelchair moved and she fell to the ground, landing on her right leg and buttocks. She reports pain around her right knee and lower leg, however denies numbness/tingling, pain at her right hip or ankle, or elsewhere. She has had ongoing right hip pain due to a fracture on 06/09, however is otherwise without complaints, no fever/chills, chest pain, palpitations, shortness of breath, syncope, generalized weakness. She denies hitting her head during this fall, no other areas of pain on her body. She denies previous falls since her last admission. She has not been on Eliquis since 06/20. In ED, vital signs stable and within normal limits. Routine labs significant for hemoglobin 11.2, uptrending since last admission. PT 11.2, INR 1.1 K+ 3.4, Mg++ 1.6, TSH 6.172, free T4 0.74. X-rays revealed Acute comminuted fractures of the proximal tibia and fibula with only mild displacement. Acute subacute appearing periprosthetic fracture of the right proximal femur is unchanged from 06/20/2021. Of note, patient was admitted on 06/09 for right periprosthetic hip fracture which was managed nonoperatively. She was readmitted on 06/20 for a worsening hematoma 2/2 fracture in setting of continuation of Eliquis. On both these admissions, it was recommended patient be discharged to an inpatient rehab facility, however patient left the hospital against medical advice. She has a self-reported history of frequent falls at home during transfers from her wheelchair to the commode. She had an appointment with her PCP on 06/27 for follow-up after hospital discharge. She was given a temporary prescription for oxycodone for ongoing right hip pain however it was reiterated to her that she is at high risk for future falls and fractures while she is taking narcotics. PCP also reiterated the need for inpatient rehab, however she declined. PT was to start coming to her home starting today. Principal Diagnosis Recurrent falls Right tib/fib fracture Hypomagnesemia--resolved with replacement Discharge Exam GENERAL: Well-developed, well-nourished 81 yo elderly WF. NAD. LUNGS: Clear to auscultation bilaterally. No accessory muscle use. No W/R/R. CARDIOVASCULAR: Regular rate and rhythm. No M/G/R. ABDOMEN: Soft, non-tender and non-distended. BS normal x 4 quad. EXTREMITIES: No edema in LLE. Non-tender. Peripheral pulses +2/4. Right LE in hinged nee brace. Trace RLE edema. NEUROLOGIC: A&O x3. PSYCHIATRIC: Cooperative. Appropriate mood and affect. SKIN: Warm, dry, intact. No rashes or lesions. Discharge Data Allergies Allergy/AdvReac Type Severity Reaction Status Date / Time No Known Allergies Allergy Verified 06/27/21 08:37 Consultations 06/30/21 18:17 ED Decision to Admit Stat 06/30/21 21:03 Consult Orthopedic Surgery Routine Ordered Studies Chest X-Ray 06/30/21 14:23 SINGLE VIEW CHEST CLINICAL HISTORY: Generalized weakness. FINDINGS: An AP, portable, supine chest radiograph is compared to study dated 06/20/2021 and correlated with chest CT dated 06/09/2021. The heart is enlarged noting atherosclerotic calcification of the thoracic aorta. The pulmonary vasculature is noncongested. There is a large hiatal hernia. Chronic interstitial thickening is similar to previous. There are small pleural effusions with bibasilar scarring/atelectasis. No pneumothorax is seen. The skeletal structures are osteopenic. There are numerous healed bilateral rib fractures. Degenerative change is noted in the shoulders. Degenerative change and scoliosis is noted at the thoracolumbar junction. IMPRESSION: 1. Cardiomegaly without radiographic evidence of congestive failure. 2. Large hiatal hernia. 3. Small pleural effusions with bibasilar scarring/atelectasis. ACT 112: Negative or not required by law. Electronically signed by: Semaj Luong M.D. 06/30/2021 3:21 PM Venous Doppler Study 06/30/21 14:23 ULTRASOUND BILATERAL LOWER EXTREMITY VENOUS CLINICAL HISTORY: Leg pain. COMPARISON STUDY: Bilateral lower extremity venous ultrasound dated 06/20/2021. TECHNIQUE: Real-time, grayscale, and color Doppler sonography of the deep veins of the right and left lower extremity was performed from the inguinal crease to the calf. Compression and augmentation were utilized. FINDINGS: There is no sonographic evidence of deep venous thrombosis identified in the right or left lower extremity. The common femoral, superficial femoral, and popliteal veins are patent and normally compressible bilaterally. The greater saphenous vein and the profunda femoris vein at the junction with the common femoral vein are clear in both legs. The visualized calf veins are patent bilaterally. There is a complex nonvascular fluid collection the right anterior mid to distal thigh which measures 17.1 x 3.0 x 3.9 cm. A second similar- appearing complex fluid collection in the right anterior upper thigh measures 11.6 x 5.0 x 7.0 cm. Soft tissue edema is present in both calves. IMPRESSION: 1. There is no sonographic evidence of deep venous thrombosis identified in the right or left lower extremity. 2. The 2 large complex nonvascular fluid collections in the right proximal and mid to distal thigh as detailed above have not significant changed as compared to 06/20/2021. These likely represent hematomas and clinical follow-up to resolution is recommended. ACT 112: Negative or not required by law. Electronically signed by: Semaj Luong M.D. 06/30/2021 7:15 PM Hip/Pelvis X-Ray 06/30/21 14:24 XR tibia fibula RT 2V, XR knee RT 1 or 2V routine, XR hip RT 2V w pelvis HISTORY: 81 years-old Female right tib fib fracture acute pain of the pelvis, right hip, knee, tibia and fibula COMPARISON: CT right hip 06/20/2021 TECHNIQUE: AP view of the pelvis with 2 views of the right hip, 2 views of the right knee with 2 views of the right tibia and fibula FINDINGS: HIP: Acute to subacute appearing displaced periprosthetic fracture of the right proximal femur redemonstrated. Right hip total joint arthroplasty. Demineralized appearance of the bones. Unchanged subacute to chronic appearing fracture deformities of the right superior and inferior pubic rami. Soft tissue swelling lateral to the right hip. Partially imaged hardware of the left proximal femur with at least moderate left hip osteoarthritis. Subacute to chronic appearing fracture deformity of the left intertrochanteric femur. KNEE: Demineralized appearance of the bones. There is an acute comminuted fracture of the proximal tibia which appears to involve both the medial and lateral tibial plateaus. The largest oblique fracture involves the medial metadiaphyseal distribution. No significant cortical depression identified. There is an acute mildly comminuted and slightly displaced fracture of the fibular head and neck. Intact. Small lipohemarthrosis. Mild tricompartmental osteoarthritis of the knee. Arterial calcifications. Diffuse soft tissue prominence. TIBIA/FIBULA: Proximal tibia and fibula fractures as above. ORIF changes of the medial and lateral malleoli. No additional acute fracture or dislocation identified. Moderate to severe osteoarthritis of the foot and ankle. IMPRESSION: 1. Acute comminuted fractures of the proximal tibia and fibula with only mild displacement. 2. Acute subacute appearing periprosthetic fracture of the right proximal femur is unchanged from 06/20/2021. 3. Small lipohemarthrosis of the right knee. ACT 112: Negative or not required by law. The above report was generated using voice recognition software. It may contain grammatical, syntax or spelling errors. Electronically signed by: Ezra Gillis M.D. 06/30/2021 3:25 PM Knee X-Ray 06/30/21 14:24 XR tibia fibula RT 2V, XR knee RT 1 or 2V routine, XR hip RT 2V w pelvis HISTORY: 81 years-old Female right tib fib fracture acute pain of the pelvis, right hip, knee, tibia and fibula COMPARISON: CT right hip 06/20/2021 TECHNIQUE: AP view of the pelvis with 2 views of the right hip, 2 views of the right knee with 2 views of the right tibia and fibula FINDINGS: HIP: Acute to subacute appearing displaced periprosthetic fracture of the right proximal femur redemonstrated. Right hip total joint arthroplasty. Demineralized appearance of the bones. Unchanged subacute to chronic appearing fracture deformities of the right superior and inferior pubic rami. Soft tissue swelling lateral to the right hip. Partially imaged hardware of the left proximal femur with at least moderate left hip osteoarthritis. Subacute to chronic appearing fracture deformity of the left intertrochanteric femur. KNEE: Demineralized appearance of the bones. There is an acute comminuted fracture of the proximal tibia which appears to involve both the medial and lateral tibial plateaus. The largest oblique fracture involves the medial metadiaphyseal dis tribution. No significant cortical depression identified. There is an acute mildly comminuted and slightly displaced fracture of the fibular head and neck. Intact. Small lipohemarthrosis. Mild tricompartmental osteoarthritis of the knee. Arterial calcifications. Diffuse soft tissue prominence. TIBIA/FIBULA: Proximal tibia and fibula fractures as above. ORIF changes of the medial and lateral malleoli. No additional acute fracture or dislocation identified. Moderate to severe osteoarthritis of the foot and ankle. IMPRESSION: 1. Acute comminuted fractures of the proximal tibia and fibula with only mild displacement. 2. Acute subacute appearing periprosthetic fracture of the right proximal femur is unchanged from 06/20/2021. 3. Small lipohemarthrosis of the right knee. ACT 112: Negative or not required by law. The above report was generated using voice recognition software. It may contain grammatical, syntax or spelling errors. Electronically signed by: Ezra Gillis M.D. 06/30/2021 3:25 PM Tibia/Fibula X-Ray 06/30/21 14:59 XR tibia fibula RT 2V, XR knee RT 1 or 2V routine, XR hip RT 2V w pelvis HISTORY: 81 years-old Female right tib fib fracture acute pain of the pelvis, right hip, knee, tibia and fibula COMPARISON: CT right hip 06/20/2021 TECHNIQUE: AP view of the pelvis with 2 views of the right hip, 2 views of the right knee with 2 views of the right tibia and fibula FINDINGS: HIP: Acute to subacute appearing displaced periprosthetic fracture of the right proximal femur redemonstrated. Right hip total joint arthroplasty. Demineralized appearance of the bones. Unchanged subacute to chronic appearing fracture deformities of the right superior and inferior pubic rami. Soft tissue swelling lateral to the right hip. Partially imaged hardware of the left proximal femur with at least moderate left hip osteoarthritis. Subacute to chronic appearing fracture deformity of the left intertrochanteric femur. KNEE: Demineralized appearance of the bones. There is an acute comminuted fracture of the proximal tibia which appears to involve both the medial and lateral tibial plateaus. The largest oblique fracture involves the medial metadiaphyseal distribution. No significant cortical depression identified. There is an acute mildly comminuted and slightly displaced fracture of the fibular head and neck. Intact. Small lipohemarthrosis. Mild tricompartmental osteoarthritis of the knee. Arterial calcifications. Diffuse soft tissue prominence. TIBIA/FIBULA: Proximal tibia and fibula fractures as above. ORIF changes of the medial and lateral malleoli. No additional acute fracture or dislocation identified. Moderate to severe osteoarthritis of the foot and ankle. IMPRESSION: 1. Acute comminuted fractures of the proximal tibia and fibula with only mild displacement. 2. Acute subacute appearing periprosthetic fracture of the right proximal femur is unchanged from 06/20/2021. 3. Small lipohemarthrosis of the right knee. ACT 112: Negative or not required by law. The above report was generated using voice recognition software. It may contain grammatical, syntax or spelling errors. Electronically signed by: Ezra Gillis M.D. 06/30/2021 3:[address] 07/01/21 10:07 CT tib/fib RT wo con CLINICAL HISTORY: Tibial Plateau Fx with distal extension TECHNIQUE: Multidetector row helical CT of the right tibia and fibula was performed without intravenous contrast. Coronal and sagittal reformations were obtained. Automated dose lowering techniques and/or adjustment according to patient size were utilized for this examination. Comparison: Comparison is made to radiographs of the tibia and fibula 06/30/2021 FINDINGS: Comminuted essentially nondisplaced fracture of the bilateral tibial plateau with extension into the diaphysis. Impacted fracture of the proximal fibular head. Plate and screw fixation is seen about the ankle joint. No joint effusion is seen. Mild soft tissue swelling is seen of the proximal leg. Vascular calcifications are seen. Partial visualization of a suprapatellar lipohemarthrosis. IMPRESSION: 1. Comminuted fractures of the tibial plateau with extension into the diaphysis. Impacted fracture of the fibular head. Findings are unchanged from 06/22/2021. 2. Associated soft tissue swelling about the proximal leg. 3. Partial visualization of lipohemarthrosis about the knee. ACT 112: Negative or not required by law. Electronically signed by: Rylan Santacruz M.D. 07/01/2021 11:44 AM Hospital Course (1) Recurrent falls: -Hospitalized 06/09-06/10 after sustaining a GLF. Had a nonoperative periprosthetic fracture RLE. IP rehab recommended but she refused and signed out AMA. Was instructed to hold her Eliquis but didn't -Readmitted 06/20-06/22 d/t another fall and was found to have a rectus hematoma and right intramuscular hemorrhage + acute L4 vertebral body fracture.Again, rehab recommended but she refused and signed out AMA -Additional fall took place when transferring the toilet wheelchair but it rolled out from under her causing her to fall sustaining a proximal tib/fib Fx (2) Fracture, tibia and fibula, proximal: -Acute comminuted fractures of the proximal tibia and fibula with mild displacement--> likely Osteoporotic -Ortho consulted-- appreciate assistance -CT obtained for additional evaluation: Comminuted fractures of the tibial plateau with extension into the diaphysis. Impacted fracture of the fibular head. Soft tissue swelling. No joint effusion. -Has since been seen by orthopedics, and for now, taking a nonoperative approach. In a hinged knee brace with nonweightbearing status for approximately 6-8 weeks -lengthy D/W pt regarding her inability to be home at this point. She has been refusing rehab but given the nonweightbearing status, understands the risk of going home and is agreeable to rehab at this time. CM on board. -Continue Tramadol 50mg q4h PRN pain. APAP for mild pain. (3) Anemia: -hgb on arrival was 11.2. Currently down to 8.9 -exact etiology unclear at this time--> suspect mutifactorial -has been OFF eliquis since 06/20 (last hospitalization) when she was found to have a rectus hematoma and right intramuscular hemorrhage. Repeat imaging shows improvement of both of these -Does take Protonix for GI prophylaxis. Denies melena or hematochezia -Iron low: 29. Given IV Venofer and started on oral supplementation -TIBC low: 100 -Ferritin: 268 -B12 low level of of normal: 424--> IM cyanocobalamin today with oral supplementation tomorrow. FU B12 in 3 months -Does have dx of stage III CKD. Could have a component of anemia of chronic disease. Erythropoietin level obtained -Fecal occult blood orderednegative (4) PAF (paroxysmal atrial fibrillation): -currently in NSR -Continue diltiazem, flecainide. -Eliquis has been held since 06/20/2021 due to R periprosthetic hip fx with subsequent hematoma. (5) Bilateral edema of lower extremity: -Was discharged on 06/22 with 20 mg Lasix every other day, with signs of improvement of bilateral lower extremity swelling as well as hematomas. -Bilateral venous Doppler study ordered in ED, no DVT noted, the 2 large complex nonvascular fluid collections in the right proximal and mid to distal thigh have not significant changed as compared to 06/20/2021. (6) Hypokalemia: -replaced/resolved (7) Hypomagnesemia: -Replaced/resolved -Started on oral supplementation (8) Osteoporosis: -Vit D level 70 ng/ml WNL on last admission (06/20/21)--> acceptable (9) Hypertension: -Stable. -Continue diltiazem. (10) Hypercholesterolemia: -diet controlled (11) Depression: -Stable. -Continue Cymbalta (12) History of lobectomy of thyroid: -s/p lobectomy in 2019; TSH today 6.172, T4 0.74--> subclinical hypothyroidism, without symptoms of hypothyroidism. -TSH last checked in 2019 was wnl. -likely component euthyroid sick. Recommend FU TSH:6-8 weeks Currently nonweightbearing status x 6-8 weeks according to orthopedics documentation. To see ortho (appt with Dr. Birmingham on 07/15), keep that appointment as scheduled, can manage both fractures unless pt wishes to change, she is welcome to do so but will need to make that decision and change those appointments on her own. Continue holding Eliquis until otherwise instructed by orthopedics and primary care as there is still evidence of large hematomas in the right thigh as of most recent imaging from 06/30. Recommend f/u with pcp upon d/c from SNF. Plan d/w Dr. Escobar who has also seen pt prior to discharge and agrees with aforementioned. Total Time Total Time Spent Total Time Spent (In Minutes): >30 minutes Discharge Plan Discharge Items Patient Disposition: [facility] Reason For Visit: RIGHT PROXIMAL TIB/FIB FX WITH MINIMAL DISPLACEMEN Discharge Diagnosis: Right Tibial Plateau Fx/Fibular Fx Activity: Per Instructions section Weightbearing: Right non-weightbearing Weightbearing Comment: Non weightbearing right leg at all times Non-emergency contact: Surgeon Call non-emergency contact if: your pain is not controlled Follow-up/Referrals: Kimber Prater DO [Primary Care Provider] - Etienne Birmingham DO [Physician] - 07/15/21 1:20 pm (KEEP APPT SCHEDULED ON 07/15) Diet: Regular Addtl Attending Provider Instructions: Take all medications as directed Do not bear ANY weight on your right leg until otherwise told by orthopedics Follow instructions as outlined below Utilize pain medications as prescribed (stop Oxycodone and only use Tramadol as needed for moderate-severe knee pain). Acetaminophen can be used for mild pain. Continue holding Eliquis until seen by Dr. Birmingham on 07/15 and your primary care doctor--can discuss resuming Elquis at that time Follow up with orthopedics in the office in 2 weeks as scheduled Recommend f/u with healthcare provider at [facility] [place] within 72 hours of arrival Follow up with established healthcare provider upon discharge from rehab Addtl Roll Scale Man Provider Instructions: YOU MUST WEAR THE KNEE BRACE AT ALL TIMES. YOU MAY REMOVE IT FOR BATHING OR CHANGING CLOTHES YOU MUST NOT PUT ANY WEIGHT ON YOUR RIGHT LOWER LEG USE WALKER FOR AMBULATION FOLLOW UP WITH DR BIRMINGHAM SCHEDULED ON 07/15/21 Pending Studies at Discharge: No Stand-Alone Forms: My [facility] Skilled Items Patient informed of condition?: Yes DNR: Yes Discharge Level of Care: Skilled Communicable Disease: No Discharge Prognosis: Stable Lines: None Urinary Catheter: No Medications and DC Order Prescriptions: New magnesium oxide 400 mg (241.3 mg magnesium) Tablet 400 mg PO BID Qty: 60 RF: 0 ferrous sulfate 325 mg (65 mg iron) tablet,delayed release (DR/EC) 325 mg PO DAILY Qty: 30 RF: 0 tramadol 50 mg Tablet 50 mg PO Q4H PRN (Reason: moderate-severe knee pain) Qty: 15 RF: 0 Continued duloxetine 60 mg capsule,delayed release(DR/EC) 60 mg PO QAM Qty: 90 RF: 1 omeprazole 40 mg capsule,delayed release(DR/EC) 40 mg PO QAM Qty: 90 RF: 1 diltiazem HCl 120 mg capsule,extended release 24 hr 120 mg PO QAM Qty: 90 RF: 1 flecainide 100 mg tablet 100 mg PO Q12H Qty: 180 RF: 1 nystatin 100,000 unit/gram cream 1 applic topical BID Qty: 30 RF: 0 Centrum Silver 0.4-300-250 mg-mcg-mcg tablet 1 tab PO DAILY RF: 0 PreserVision AREDS 14,320-226-200 [id number]-[id number] Capsule 1 cap PO QAM RF: 0 acetaminophen [Tylenol Extra Strength] 500 mg Tablet 1,000 mg PO Q6H PRN (Reason: Pain) RF: 0 furosemide 20 mg tablet 20 mg PO Q OTHER DAY Qty: 14 RF: 0 Discontinued oxycodone [Roxicodone] 5 mg tablet 5 mg PO Q8H PRN (Reason: pain) Qty: 30 RF: 0 Discharge Orders: Discharge Order (Routine); Ordered 07/04/21 Ordered By: Sherri Goldstein Admission Data Admit Date/Time: 06/30/21 18:14 Attending Provider: Sumeet Escobar Admit Provider: Juan R Bazzi Primary Care Provider: Kimber Prater Other Providers: uJan R Bazzi ; Александр Ramirez ; Chaparro Potter Other Interventions: Discharge Summary Assessment (RN) Last Done: 07/04/21 13:26 Supervising Physician Co-Signing Physician Notes Case discussed with JUANITA Goldstein, agree with assessment and plan as above. Patient is seen at the bedside prior to discharge. She has a 81-year-old female who had previously refused placement sustained a fall with right tibial plateau and fibular fracture. At time of bedside assessment is not in pain at rest, leg is in brace. No gross deformity on exam. Reviewed that patient is to be nonwe ightbearing in the right leg at all times, must wear the knee brace at all times except for temporary removal for bathing/changing clothes, and must use a walker for ambulation. Patient is agreeable to this. Aware that follow-up with Dr. Birmingham has already been scheduled. Michela has been held until this appointment. Patient has no other questions at time of bedside visit, pending discharge to [place]. Coding Level of Care Code D/C DAY MANAGEMENT >30 MINS Diagnoses Recurrent falls R29.6 Fracture, tibia and fibula, proximal S82.101A; S82.831A Encounter type: initial encounter Fracture type: closed Laterality: right Anemia D64.9 Anemia type: unspecified type PAF (paroxysmal atrial fibrillation) I48.0 Bilateral edema of lower extremity R60.0 Hypokalemia E87.6 Hypomagnesemia E83.42 Osteoporosis M81.0 Hypertension I10 Hypercholesterolemia E78.00 Depression F32.9 History of lobectomy of thyroid Z90.09
== END 2021-07-04 13:54 ==
LOC: ED 14:10 → INTOOBSV 18:14 → SUATTDRO 18:14 → 3N 18:14

== ENCOUNTER 2021-09-30 13:14 | Inpatient (IN) ==
--- NOTE | 2021-09-30 14:34 | XRay Report ---
XR chest 1V portable HISTORY: 81 years-old Female Chest Pain . Atypical chest pain COMPARISON: Chest radiograph 07/01/2019 TECHNIQUE: Portable AP view of the chest FINDINGS: Cardiac silhouette is enlarged. Right greater than left layering pleural effusions with bibasilar con solidation. Pulmonary vascular congestion with interstitial coarsening. No pneumothorax. Lucency of t he medial right lung base may represent aerated lung or hiatal hernia. A cavitary pulmonary process i s considered less likely. Degenerative changes of the shoulders and spine. Healed chronic bilateral r ib fracture deformities. IMPRESSION: 1. Cardiomegaly with pulmonary edema. 2. Right greater than left layering pleural effusions with bibasilar consolidation. ACT 112: Negative or not required by law. The above report was generated using voice recognition software. It may contain grammatical, syntax o r spelling errors. Electronically signed by: Ezra Gillis M.D. 09/30/2021 2:31 PM
[2021-09-30 14:58] LABS: Hematocrit (blood only) 35.1 % (37-47); Hemoglobin 12.5 g/dL (12.0-16.0); Immature Granulocytes # (auto) 0.02 K/uL (0.00-0.02); Immature Granulocytes % (auto) 0.2 %; Lymphocytes # (auto) 0.63 K/uL (1.2-3.4); Lymphocytes % (auto) 6.7 %; Mean Corpuscular Hemoglobin 33.8 pg (25-34); Mean Corpuscular Hgb Conc 35.6 g/dL (32-36); Mean Corpuscular Volume 94.9 fL (80-100); Mean Platelet Volume 9.1 fL (7.4-10.4); Monocytes # (auto) 1.05 K/uL (0.11-0.59); Monocytes % (auto) 11.2 %; Neutrophils % (auto) 81.9 %; Platelet Count 400 K/uL (130-400); RDW Coefficient of Variation 14.7 % (11.5-14.5); RDW Standard Deviation 50.3 fL (36.4-46.3)
[2021-09-30 15:22] LABS: Alanine Aminotransferase 23 U/L (7-52); Albumin Globulin Ratio 1.3 (0.9-2); Albumin Level 3.2 gm/dl (3.4-5.0); Alkaline Phosphatase 118 U/L (34-104); Anion Gap 6 (3-11); Aspartate Aminotransferase 20 U/L (13-39); BUN Creatinine Ratio 22.2 (10-20); Bilirubin,Total 1.1 mg/dl (0.2-1.0); Blood Urea Nitrogen 12 mg/dl (6-23); Calcium 7.8 mg/dl (8.5-10.1); Carbon Dioxide 31 mmol/L (21-32); Chloride 80 mmol/L (98-107); Est GFR (African American) 101.9 ml/min; Est GFR (Non-African American) 87.9 ml/min; Globulin 2.4 gm/dl (2.5-4.0); Glucose 120 mg/dl (70-99(Fasting)); Lipase 16 U/L (11-82); Magnesium 1.8 mg/dl (1.7-2.4); Phosphorus 2.8 mg/dl (2.5-4.9); Potassium 3.9 mmol/L (3.5-5.1); Sodium 117 mmol/L (136-145); Total Protein 5.6 gm/dl (6.0-8.3); Troponin I High Sensitivity 15.1 pg/ml (0-14)
[2021-09-30] MEDS ORDERED: OPTIRAY 320 125ml IV ONE ×2 (15:53→16:07)
--- NOTE | 2021-09-30 15:59 | Emergency Department Note ---
Impression & Plan Hyponatremia, Hypervolemia, Low O2 saturation, Pleural effusion, bilateral ED Provider Note NAME: WARREN GUZMAN AGE: 81 SEX: F ARRIVES VIA: Walk-In INFORMANT: Patient ED PROVIDER(S): Shaan Prater MD CHIEF COMPLAINT: Sob PLAN: Disposition: Admit MEDICAL DECISION MAKING: The patient is a pleasant 81-year-old woman with a past medical history of paroxysmal atrial fibrillation, osteoporosis, vitamin D deficiency, HTN, hypercholesterolemia, GERD, depression, bilateral hip fractures, frequent falls, and right periprosthetic hip fracture on 06/09/21who presents to emergency department for evaluation of worsening shortness of breath and decreased urination over the past several days. She has had increased swelling in her legs and a chronic wound of her left lower leg continues to drain. She denies any fevers, nausea, vomiting, diarrhea. On arrival the patient is chronically ill-appearing but no acute distress, afebrile with stable vital signs. O2 90% on RA and so placed on 2LNC. She appears mildly dyspneic without significant increased work of breathing. She has diminished breath sounds of bilateral lower lung bobby. 2+ BLE pitting edema. Left pretibial chronic wound with serous weeping. EKG without overt acute ischemia. Chest x-ray with right greater than left pleural effusions with basilar consolidation. WBC, hemoglobin and platelets within normal limits. Chemistry without metabolic acidosis. Sodium is low at 117 which is decreased from 130 on 09/05. High- sensitivity troponin 15.1, nonspecific. BNP 1600 without prior values for comparison. Lipase not elevated. TSH wnl. Covid-19 RNA, NAAT negative. Serum osmolality 246 consistent with the patient's hypervolemia on exam and suspected hypervolemic hyponatremia. Urine osmolality pending. CT of the chest was performed and was negative for PE. Note is made of pulmonary edema and bilateral pleural effusions with dependent consolidation. 40 mg of IV Lasix was ordered. The patient agrees with plan for admission for further management. Given the patient is mentating normally and risk for overcorrection of sodium hypertonic saline deferred as it is suspected that her sodium will improve with free water removal upon diuresis. Case was discussed with Sam Ewing [facility] and Dr. Bass [facility] [place], who will evaluate the patient for admissio n. Further management per admitting team. Triage Nursing notes reviewed and agree them. Prior medical records reviewed Vital Signs: reviewed and remarkable for low O2 saturation. Differential diagnosis: Reactive airway disease, pneumonia, pneumothorax, COPD, CHF, infections, cardiac ischemia, pulmonary embolism, musculoskeletal, gastrointestinal, as well as other pathologies. ER treatment provided: See below. Diagnostics interpreted by me: ECG: Sinus rhythm with first-degree AV block, 88 bpm, ST and T wave abnormality, no overt ST elevation or depression, QTC 452, QRS 124. Cardiac Monitoring: An order for continuous cardiac monitoring was placed and demonstrated Sinus rhythm with first-degree AV block, 88 bpm, no ectopy. Laboratory studies: See below Imaging studies: See below Consultation(s): Case was discussed with Sam LINDER MASTER BARBER and Dr. Shelia LINDER hospitalist, who will evaluate the patient for admission. HPI: The patient is a pleasant 81-year-old woman with a past medical history of paroxysmal atrial fibrillation, osteoporosis, vitamin D deficiency, HTN, hypercholesterolemia, GERD, depression, bilateral hip fractures, frequent falls, and right periprosthetic hip fracture on 06/09/21who presents to emergency department for evaluation of worsening shortness of breath and decreased urination over the past several days. She has had increased swelling in her legs and a chronic wound of her left lower leg continues to drain. She denies any fevers, nausea, vomiting, diarrhea. ROS: See above HPI for pertinent positives & negatives. A total of 10 systems reviewed and were otherwise negative. VITALS:See Below PHYSICAL EXAMINATION: GENERAL: Awake, alert, chronically ill-appearing, in no distress HENT: Normocephalic, atraumatic. Oropharynx unremarkable. EYES: Normal conjunctiva. Sclera non-icteric. NECK: Supple. No nuchal rigidity. FROM. No JVD. RESPIRATORY: Mildly dyspneic without significant increased work of breathing. Diminished breath sounds of bilateral lower lung bobby. CARDIAC: Regular rate, normal rhythm. Extremities warm and well perfused. Pulses equal. ABDOMEN: Soft, non-distended. No tenderness to palpation. No rebound or guarding. No masses. RECTAL: Deferred. MUSCULOSKELETAL: Chest examination reveals no tenderness. The back is symmetrical on inspection without obvious abnormality. There is no CVA tenderness to palpation. No joint edema. LOWER EXTREMITIES: 2+ BLE pitting edema. Left pretibial chronic wound with serous weeping. NEURO: Normal sensorium. No sensory or motor deficits noted. SKIN: No rash or jaundice noted. ED COURSE: Critical Care: I have personally spent greater than 35 minutes of critical care time in the direct management of this patient. This includes bedside care, interpretation of diagnostic studies, and testing, discussion with consultants, patient, and family members, and other required patient management activities. This 35 minutes is in excess of all separately billable procedures. Shaan Prater MD Past Med/Surg History Medical History Anemia Anxiety Chronic anticoagulation Chronic kidney disease, stage III (moderate) Cystic thyroid nodule Depression Diaphragmatic hernia Diastolic dysfunction Disc degeneration, lumbar Diverticulosis Fall GERD without esophagitis Grief Loss of spouse August 2018 Hypercholesterolemia Hypertension Lumbar spinal stenosis LVH (left ventricular hypertrophy) Macular degeneration Mitral regurgitation MODERATE Osteoarthritis Osteoporosis PAF (paroxysmal atrial fibrillation) Rheumatoid arthritis Right thyroid nodule Scoliosis Venous insufficiency of both lower extremities Vitamin D deficiency Surgical History H/O bilateral oophorectomy B/L SALPINGOOPHORECTOMY= 04/12/17= GRADE VIEW 2, MAC 3, ETT 7.5 AT [facility] History of adenoidectomy History of cataract surgery RIGHT/LEFT History of hysterectomy (1988) History of open reduction and internal fixation (ORIF) procedure (1993) RIGHT ANKLE History of tonsillectomy History of tooth extraction History of total hip arthroplasty RIGHT Knee arthropathy w/ medial meniscus repair in 10/2017 S/P ORIF (open reduction internal fixation) fracture (~03/2021) Left Hip S/P thyroid surgery right thyroid lobectomy Dr. Thornton 01/06/19 Status post arthroscopic partial medial meniscectomy (11/02/17) R knee Family History Father Coronary heart disease Colorectal cancer Kidney disease Lung disease Mother Coronary heart disease Myocardial infarction Gallbladder disease Sister Diabetes Colorectal cancer Denies family history of Ovarian cancer Prostate cancer Breast cancer Social History Smoking Status: Never smoker Second Hand Exposure: Yes; Hx Alcohol Use: Yes Alcohol type: beer Alcohol Intake Frequency: 4 or More x per/Week Hx Substance Use: No Preferred Language: Latvian Communication Ability: Effective Visual Impairment: No Limitations Hearing Ability: Use of Hearing Aid Shoulder Pad Molder Required: No Beliefs That Will Affect Care: None marital status: / marital status details: passed August 2018 Current Living Situation: Family Current Living Situation Comment: with daughter current occupational status: retired 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 How many Children do You have: 2 Feels Safe at Home: Yes Childhood Exposure to Second-Hand Smoke: No Diet Comment: regular caffeine: Yes (1/2 cup a day) during the past year weight has: decreased > 10 lbs Dental Care, Regularly: Yes Physical Activity Frequency: Daily Seatbelt Use: always Sunscreen Use: No Assistive Devices: Walker and Wheelchair Allergies Allergies Allergy/AdvReac Type Severity Reaction Status Date / Time No Known Allergies Allergy Verified 09/30/21 17:39 Home Meds Home Medications Medication Instructions Recorded Confirmed [id number] acid 0.4 1 tab PO DAILY 09/10/20 09/30/21 mg-lycopene 300 mcg-lutein 250 mcg tablet (Centrum Silver) acetaminophen 500 mg tablet 500 mg PO Q6H PRN 08/06/21 09/30/21 (Tylenol Extra Strength) diphenhydramine 25 1 tab PO HS PRN tab 08/06/21 09/30/21 mg-acetaminophen 500 mg tablet (Tylenol PM Extra Strength) vitamins A,C,F-calh-dlqqnw 14,320 1 cap PO BID cap 08/06/21 09/30/21 unit-226 mg-200 unit capsule (PreserVision AREDS) Previous Rx's Medication Instructions Recorded duloxetine 60 mg capsule,delayed 60 mg PO QAM #90 cap 01/21/21 release diltiazem HCl 120 mg capsule,24 120 mg PO QAM #90 cap 06/26/21 hr,extended release flecainide 100 mg tablet 100 mg PO Q12H #180 tab 06/26/21 ferrous sulfate 325 mg (65 mg 325 mg PO DAILY #30 tab 07/21/21 iron) tablet,delayed release magnesium oxide 400 mg (241.3 mg 400 mg PO BID #60 tab 07/21/21 magnesium) tablet miscellaneous medical supply 1 ea MISCELLANEOUS DAILY #1 ea 07/23/21 omeprazole 40 mg capsule,delayed 40 mg PO QAM #90 cap 08/26/21 release tramadol 50 mg tablet 50 mg PO Q4H PRN #30 tab 08/26/21 apixaban 5 mg tablet (Eliquis) 5 mg PO BID #60 tab 09/05/21 prednisone 20 mg tablet 40 mg PO DAILY 5 Days #10 tab 09/23/21 clindamycin HCl 300 mg capsule 300 mg PO Q8H 7 Days #21 cap 09/25/21 furosemide 20 mg tablet See Rx Instructions .ROUTE 09/26/21 .COMPLEX #30 tab Results & Data (ED) Vital Signs Vital Signs - 24 hr 09/30/21 13:20 09/30/21 13:48 09/30/21 13:53 Temperature 36.8 C Temperature Source Temporal Artery Scan Pulse Rate 90 Pulse Rate [Apical] 88 Pulse Rhythm [Apical] Pulse Strength [Apical] Respiratory Rate 20 18 Respiratory Effort / Characteristics Non-Labored Spontaneous Respiratory Depth Normal Respiratory Pattern Regular Blood Pressure [Right Arm] 148/91 H Blood Pressure Mean [Right Arm] 110 Blood Pressure Position Sitting Blood Pressure Position [Right Arm] Pulse Oximetry 97 95 Oxygen Delivery Method Room Air Room Air Room Air Oxygen Flow Rate Sepsis Recent Fever Within 48 Hours No Sepsis New/Unexplained Change in Mental Status No Sepsis Action Taken by Nursing No Action Required Oxygen Flow Rate - Titration Pulse Oximetry Post Tiitration 09/30/21 14:29 09/30/21 16:00 Temperature Temperature Source Pulse Rate Pulse Rate [Apical] 96 H Pulse Rhythm [Apical] Regular Pulse Strength [Apical] Normal Respiratory Rate 18 Respiratory Effort / Characteristics Non-Labored Respiratory Depth Normal Respiratory Pattern Regular Blood Pressure [Right Arm] 131/77 Blood Pressure Mean [Right Arm] 95 Blood Pressure Position Blood Pressure Position [Right Arm] Lying Pulse Oximetry 95 Oxygen Delivery Method Room Air Nasal Cannula Oxygen Flow Rate 2 Sepsis Recent Fever Within 48 Hours Sepsis New/Unexplained Change in Mental Status Sepsis Action Taken by Nursing Oxygen Flow Rate - Titration 2 Pulse Oximetry Post Tiitration 95 Laboratory Data Result diagrams: 09/30/21 14:38 09/30/21 19:47 Lab Results 09/30/21 09/30/21 09/30/21 Range/Units 14:31 14:38 14:38 WBC 9.40 (4.8-10.8) K/uL RBC 3.70 L (4.2-5.4) M/uL Hgb 12.5 (12.0-16.0) g/dL Hct 35.1 L (37-47) % MCV 94.9 (80-100) fL MCH 33.8 (25-34) pg MCHC 35.6 (32-36) g/dL RDW Std Deviation 50.3 H (36.4-46.3) fL RDW Coeff of Tyra 14.7 H (11.5-14.5) % Plt Count 400 (130-400) K/uL MPV 9.1 (7.4-10.4) fL Immature Gran % (Auto) 0.2 % Neut % (Auto) 81.9 % Lymph % (Auto) 6.7 % [place] % (Auto) 11.2 % Eos % (Auto) 0.0 % Baso % (Auto) 0.0 % Neut # (Auto) 7.70 H (1.4-6.5) K/uL Lymph # (Auto) 0.63 L (1.2-3.4) K/uL [place] # (Auto) 1.05 H (0.11-0.59) K/uL Eos # (Auto) 0.00 (0-0.5) K/uL Baso # (Auto) 0.00 (0-0.2) K/uL Immature Gran # (Auto) 0.02 (0.00-0.02) K/uL Sodium 117 L* (136-145) mmol/L Potassium 3.9 (3.5-5.1) mmol/L Chloride 80 L (98-107) mmol/L Carbon Dioxide 31 (21-32) mmol/L Anion Gap 6 (3-11) BUN 12 (6-23) mg/dl Creatinine 0.54 L (0.6-1.2) mg/dl Est Cr Clr Drug Dosing Not Reportable Est GFR ( Amer) 101.9 ml/min Est GFR (Non-Af Amer) 87.9 ml/min BUN/Creatinine Ratio 22.2 H (10-20) Glucose 120 H (70-99(Fasting)) mg/dl Osmolality (280-300) mOsm/kg Calcium 7.8 L (8.5-10.1) mg/dl Phosphorus 2.8 (2.5-4.9) mg/dl Magnesium 1.8 (1.7-2.4) mg/dl Total Bilirubin 1.1 H (0.2-1.0) mg/dl AST 20 (13-39) U/L ALT 23 (7-52) U/L Alkaline Phosphatase 118 H (34-104) U/L Troponin I High Sens 15.1 H (0-14) pg/ml B-Natriuretic Peptide (0-100) pg/ml Total Protein 5.6 L (6.0-8.3) gm/dl Albumin 3.2 L (3.4-5.0) gm/dl Globulin 2.4 L (2.5-4.0) gm/dl Albumin/Globulin Ratio 1.3 (0.9-2) Lipase 16 (11-82) U/L TSH (0.300-4.500) uIu/ml Random Cortisol mcg/dl Urine Color Urine Appearance (Clear) Urine pH (4.5-7.5) Ur Specific [place] (1.000-1.030) Urine Protein (Negative) Urine Glucose (UA) (Negative) Urine Ketones (Negative) Urine Blood (Negative) Urine Nitrite (Negative) Urine Bilirubin (Negative) Urine Urobilinogen (Negative) Ur Leukocyte Esterase (Negative) Urine WBC (Auto) (0-5) /hpf Urine RBC (Auto) (0-4) /hpf U Hyaline Cast (Auto) (0-5) /lpf U Epithel Cells (Auto) (0-5) /lpf Urine Bacteria (Auto) (Negative) Urine Osmolality (500-800) mOsm/kg Ur Random Sodium mmol/L SARS-CoV-2, RNA, NAAT NEGATIVE (NEGATIVE) 09/30/21 09/30/21 09/30/21 Range/Units 14:38 15:46 15:46 WBC (4.8-10.8) K/uL RBC (4.2-5.4) M/uL Hgb (12.0-16.0) g/dL Hct (37-47) % MCV (80-100) fL MCH (25-34) pg MCHC (32-36) g/dL RDW Std Deviation (36.4-46.3) fL RDW Coeff of Tyra (11.5-14.5) % Plt Count (130-400) K/uL MPV (7.4-10.4) fL Immature Gran % (Auto) % Neut % (Auto) % Lymph % (Auto) % [place] % (Auto) % Eos % (Auto) % Baso % (Auto) % Neut # (Auto) (1.4-6.5) K/uL Lymph # (Auto) (1.2-3.4) K/uL [place] # (Auto) (0.11-0.59) K/uL Eos # (Auto) (0-0.5) K/uL Baso # (Auto) (0-0.2) K/uL Immature Gran # (Auto) (0.00-0.02) K/uL Sodium (136-145) mmol/L Potassium (3.5-5.1) mmol/L Chloride (98-107) mmol/L Carbon Dioxide (21-32) mmol/L Anion Gap (3-11) BUN (6-23) mg/dl Creatinine (0.6-1.2) mg/dl Est Cr Clr Drug Dosing Est GFR ( Amer) ml/min Est GFR (Non-Af Amer) ml/min BUN/Creatinine Ratio (10-20) Glucose (70-99(Fasting)) mg/dl Osmolality 246 L (280-300) mOsm/kg Calcium (8.5-10.1) mg/dl Phosphorus (2.5-4.9) mg/dl Magnesium (1.7-2.4) mg/dl Total Bilirubin (0.2-1.0) mg/dl AST (13-39) U/L ALT (7-52) U/L Alkaline Phosphatase (34-104) U/L Troponin I High Sens (0-14) pg/ml B-Natriuretic Peptide 1621 H (0-100) pg/ml Total Protein (6.0-8.3) gm/dl Albumin (3.4-5.0) gm/dl Globulin (2.5-4.0) gm/dl Albumin/Globulin Ratio (0.9-2) Lipase (11-82) U/L TSH 2.698 (0.300-4.500) uIu/ml Random Cortisol mcg/dl Urine Color Urine Appearance (Clear) Urine pH (4.5-7.5) Ur Specific [place] (1.000-1.030) Urine Protein (Negative) Urine Glucose (UA) (Negative) Urine Ketones (Negative) Urine Blood (Negative) Urine Nitrite (Negative) Urine Bilirubin (Negative) Urine Urobilinogen (Negative) Ur Leukocyte Esterase (Negative) Urine WBC (Auto) (0-5) /hpf Urine RBC (Auto) (0-4) /hpf U Hyaline Cast (Auto) (0-5) /lpf U Epithel Cells (Auto) (0-5) /lpf Urine Bacteria (Auto) (Negative) Urine Osmolality (500-800) mOsm/kg Ur Random Sodium mmol/L SARS-CoV-2, RNA, NAAT (NEGATIVE) 09/30/21 09/30/21 09/30/21 Range/Units 15:46 17:17 17:17 WBC (4.8-10.8) K/uL RBC (4.2-5.4) M/uL Hgb (12.0-16.0) g/dL Hct (37-47) % MCV (80-100) fL MCH (25-34) pg MCHC (32-36) g/dL RDW Std Deviation (36.4-46.3) fL RDW Coeff of Tyra (11.5-14.5) % Plt Count (130-400) K/uL MPV (7.4-10.4) fL Immature Gran % (Auto) % Neut % (Auto) % Lymph % (Auto) % [place] % (Auto) % Eos % (Auto) % Baso % (Auto) % Neut # (Auto) (1.4-6.5) K/uL Lymph # (Auto) (1.2-3.4) K/uL [place] # (Auto) (0.11-0.59) K/uL Eos # (Auto) (0-0.5) K/uL Baso # (Auto) (0-0.2) K/uL Immature Gran # (Auto) (0.00-0.02) K/uL Sodium (136-145) mmol/L Potassium (3.5-5.1) mmol/L Chloride (98-107) mmol/L Carbon Dioxide (21-32) mmol/L Anion Gap (3-11) BUN (6-23) mg/dl Creatinine (0.6-1.2) mg/dl Est Cr Clr Drug Dosing Est GFR ( Amer) ml/min Est GFR (Non-Af Amer) ml/min BUN/Creatinine Ratio (10-20) Glucose (70-99(Fasting)) mg/dl Osmolality (280-300) mOsm/kg Calcium (8.5-10.1) mg/dl Phosphorus (2.5-4.9) mg/dl Magnesium (1.7-2.4) mg/dl Total Bilirubin (0.2-1.0) mg/dl AST (13-39) U/L ALT (7-52) U/L Alkaline Phosphatase (34-104) U/L Troponin I High Sens (0-14) pg/ml B-Natriuretic Peptide (0-100) pg/ml Total Protein (6.0-8.3) gm/dl Albumin (3.4-5.0) gm/dl Globulin (2.5-4.0) gm/dl Albumin/Globulin Ratio (0.9-2) Lipase (11-82) U/L TSH (0.300-4.500) uIu/ml Random Cortisol 4.17 mcg/dl Urine Color Dark Yellow Urine Appearance Clear (Clear) Urine pH 6.0 (4.5-7.5) Ur Specific [place] 1.041 H (1.000-1.030) Urine Protein 1+ H (Negative) Urine Glucose (UA) Negative (Negative) Urine Ketones Trace H (Negative) Urine Blood Negative (Negative) Urine Nitrite Negative (Negative) Urine Bilirubin Negative (Negative) Urine Urobilinogen Negative (Negative) Ur Leukocyte Esterase Negative (Negative) Urine WBC (Auto) 1-5 (0-5) /hpf Urine RBC (Auto) 5-10 H (0-4) /hpf U Hyaline Cast (Auto) 1-5 (0-5) /lpf U Epithel Cells (Auto) >30 H (0-5) /lpf Urine Bacteria (Auto) Negative (Negative) Urine Osmolality 526 (500-800) mOsm/kg Ur Random Sodium mmol/L SARS-CoV-2, RNA, NAAT (NEGATIVE) 09/30/21 Range/Units 17:17 WBC (4.8-10.8) K/uL RBC (4.2-5.4) M/uL Hgb (12.0-16.0) g/dL Hct (37-47) % MCV (80-100) fL MCH (25-34) pg MCHC (32-36) g/dL RDW Std Deviation (36.4-46.3) fL RDW Coeff of Tyra (11.5-14.5) % Plt Count (130-400) K/uL MPV (7.4-10.4) fL Immature Gran % (Auto) % Neut % (Auto) % Lymph % (Auto) % [place] % (Auto) % Eos % (Auto) % Baso % (Auto) % Neut # (Auto) (1.4-6.5) K/uL Lymph # (Auto) (1.2-3.4) K/uL [place] # (Auto) (0.11-0.59) K/uL Eos # (Auto) (0-0.5) K/uL Baso # (Auto) (0-0.2) K/uL Immature Gran # (Auto) (0.00-0.02) K/uL Sodium (136-145) mmol/L Potassium (3.5-5.1) mmol/L Chloride (98-107) mmol/L Carbon Dioxide (21-32) mmol/L Anion Gap (3-11) BUN (6-23) mg/dl Creatinine (0.6-1.2) mg/dl Est Cr Clr Drug Dosing Est GFR ( Amer) ml/min Est GFR (Non-Af Amer) ml/min BUN/Creatinine Ratio (10-20) Glucose (70-99(Fasting)) mg/dl Osmolality (280-300) mOsm/kg Calcium (8.5-10.1) mg/dl Phosphorus (2.5-4.9) mg/dl Magnesium (1.7-2.4) mg/dl Total Bilirubin (0.2-1.0) mg/dl AST (13-39) U/L ALT (7-52) U/L Alkaline Phosphatase (34-104) U/L Troponin I High Sens (0-14) pg/ml B-Natriuretic Peptide (0-100) pg/ml Total Protein (6.0-8.3) gm/dl Albumin (3.4-5.0) gm/dl Globulin (2.5-4.0) gm/dl Albumin/Globulin Ratio (0.9-2) Lipase (11-82) U/L TSH (0.300-4.500) uIu/ml Random Cortisol mcg/dl Urine Color Urine Appearance (Clear) Urine pH (4.5-7.5) Ur Specific [place] (1.000-1.030) Urine Protein (Negative) Urine Glucose (UA) (Negative) Urine Ketones (Negative) Urine Blood (Negative) Urine Nitrite (Negative) Urine Bilirubin (Negative) Urine Urobilinogen (Negative) Ur Leukocyte Esterase (Negative) Urine WBC (Auto) (0-5) /hpf Urine RBC (Auto) (0-4) /hpf U Hyaline Cast (Auto) (0-5) /lpf U Epithel Cells (Auto) (0-5) /lpf Urine Bacteria (Auto) (Negative) Urine Osmolality (500-800) mOsm/kg Ur Random Sodium 20 mmol/L SARS-CoV-2, RNA, NAAT (NEGATIVE) Administered Medications Apixaban (Apixaban 5 Mg Tablet) 5 mg PO BID JULIANE Stop: 10/30/21 20:59 Last Admin: 09/30/21 20:10 Dose: 5 mg Documented by: [id number] Discontinued Medications Furosemide (Furosemide 40 Mg/4 Ml Vial) 40 mg IV ONE ONE Stop: 09/30/21 16:45 Last Admin: 09/30/21 17:23 Dose: 40 mg Documented by: [id number] Ioversol (Optiray 320 125ml) 118 ml IV ONCE ONE Stop: 09/30/21 15:54 Last Admin: 09/30/21 19:38 Dose: Not Given Documented by: [id number] Ioversol (Optiray 320 125ml) 118 ml IV ONCE ONE Stop: 09/30/21 16:08 Last Admin: 09/30/21 16:07 Dose: 118 ml Documented by: [id number] Imaging Data Radiologist's Impression: Chest X-Ray 09/30/21 14:07 XR chest 1V portable HISTORY: 81 years-old Female Chest Pain . Atypical chest pain COMPARISON: Chest radiograph 07/01/2019 TECHNIQUE: Portable AP view of the chest FINDINGS: Cardiac silhouette is enlarged. Right greater than left layering pleural effusions with bibasilar consolidation. Pulmonary vascular congestion with interstitial coarsening. No pneumothorax. Lucency of the medial right lung base may represent aerated lung or hiatal hernia. A cavitary pulmonary process is considered less likely. Degenerative changes of the shoulders and spine. Healed chronic bilateral rib fracture deformities. IMPRESSION: 1. Cardiomegaly with pulmonary edema. 2. Right greater than left layering pleural effusions with bibasilar consolidation. ACT 112: Negative or not required by law. The above report was generated using voice recognition software. It may contain grammatical, syntax or spelling errors. Electronically signed by: Ezra Gillis M.D. 09/30/2021 2:31 PM Chest CTA 09/30/21 14:51 CT ANGIOGRAM OF THE CHEST CLINICAL HISTORY: Dyspnea. COMPARISON STUDY: Chest x-ray dated 09/30/2021. Chest CT dated 06/09/2021. TECHNIQUE: Following the IV administration of 118 cc of Optiray 320, CT angiogram of the chest was performed from the upper abdomen to the thoracic inlet utilizing the pulmonary embolus protocol. Images are reviewed in the axial, sagittal, and coronal planes. 3-D MIPS images are created and assessed. IV contrast was administered without complication. A dose lowering technique was utilized adhering to the principles of ALARA. CT DOSE: 292.37 mGy.cm FINDINGS: Thyroid: Atrophic. Thoracic aorta: There is mild ectasia of the ascending thoracic aorta which measures up to 3.8 cm in diameter. The remainder of the thoracic aorta is normal in caliber, and the arch demonstrates standard 3-vessel anatomy. The thoracic aorta is not opacified. Pulmonary vasculature: The main pulmonary arteries are mildly dilated suggesting pulmonary artery hypertension. There are no filling defects identified in main, lobar, or segmental pulmonary branches to suggest pulmonary embolus. Heart: The heart is enlarged and without pericardial effusion. Lungs and pleural spaces: There are small to moderate pleural effusions with dependent consolidation. Mild groundglass opacities are seen bilaterally and there is intralobular septal thickening. The trachea and central airways are clear. Mediastinum: There is no mediastinal lymphadenopathy. Angela: Clear. Axillae: There is no axillary lymphadenopathy. Upper abdomen: There is a large hiatal hernia, with the majority of the stomach located in the thorax. Partially visualized upper abdominal viscera is otherwise grossly unremarkable. Skeletal structures: The skeletal structures are osteopenic. Advanced degenerative change and kyphoscoliosis is noted in the thoracic spine. There is a chronic compression deformity of T4. There are numerous chronic/healed bilateral rib fractures as well as chronic posttraumatic deformity of the sternum and right-sided transverse processes in the thoracic spine. Arthritic change is seen in the shoulders. No lytic or blastic bony lesions are seen. Soft tissues: There is body wall edema. IMPRESSION: 1. There is no evidence of pulmonary embolus in the main, lobar, or segmental pulmonary arteries. 2. Cardiomegaly with evidence of congestive failure and mild pulmonary edema. 3. Small to moderate pleural effusions with dependent consolidation. 4. Large hiatal hernia. 5. Additional findings as above. ACT 112: Negative or not required by law. Electronically signed by: Semaj Luong M.D. 09/30/2021 4:18 PM KUB X-Ray 09/30/21 17:04 KUB CLINICAL HISTORY: Generalized abdominal pain. FINDINGS: 2 AP supine abdominal radiographs are correlated with abdominal CT dated 02/18/2019. There is a nonobstructed abdominal bowel gas pattern. No evidence of intraperitoneal free air is seen on these supine images. There are no abnormal abdominal calcifications. The skeletal structures are osteopenic. There is advanced lumbosacral spondylosis and scoliosis. A right hip arthroplasty is in place and postoperative change is partially visualized in the left proximal femur. There are healed pubic ring fractures as well as healed left-sided rib fractures. IMPRESSION: Nonobstructed abdominal bowel gas pattern. Electronically signed by: Semaj Luong M.D. 09/30/2021 9:07 PM Discharge Plan Visit Data Chief Complaint: Respiratory Problems Stated Complaint: HAS PARTIALLY COLLAPSED LUNG, TROUBLE BREATHING ED Provider: Shaan Prater Discharge Problem: Hyponatremia, Hypervolemia, Low O2 saturation, Pleural effusion, bilateral Patient Disposition: Admitted As Inpatient Discharge Instructions Interventions: ED Discharge Assessment Last Done: 09/30/21 18:08 Discharge Problem: Hypervolemia Qualifiers: Hypervolemia type: unspecified Qualified Code(s): E87.70 - Fluid overload, unspecified
--- NOTE | 2021-09-30 16:20 | CT Scan Report ---
CT ANGIOGRAM OF THE CHEST CLINICAL HISTORY: Dyspnea. COMPARISON STUDY: Chest x-ray dated 09/30/2021. Chest CT dated 06/09/2021. TECHNIQUE: Following the IV administration of 118 cc of Optiray 320, CT angiogram of the chest was pe rformed from the upper abdomen to the thoracic inlet utilizing the pulmonary embolus protocol. Images are reviewed in the axial, sagittal, and coronal planes. 3-D MIPS images are created and assessed. I V contrast was administered without complication. A dose lowering technique was utilized adhering to the principles of ALARA. CT DOSE: 292.37 mGy.cm FINDINGS: Thyroid: Atrophic. Thoracic aorta: There is mild ectasia of the ascending thoracic aorta which measures up to 3.8 cm in diameter. The remainder of the thoracic aorta is normal in caliber, and the arch demonstrates standar d 3-vessel anatomy. The thoracic aorta is not opacified. Pulmonary vasculature: The main pulmonary arteries are mildly dilated suggesting pulmonary artery hyp ertension. There are no filling defects identified in main, lobar, or segmental pulmonary branches to suggest pulmonary embolus. Heart: The heart is enlarged and without pericardial effusion. Lungs and pleural spaces: There are small to moderate pleural effusions with dependent consolidation. Mild groundglass opacities are seen bilaterally and there is intralobular septal thickening. The tra shani and central airways are clear. Mediastinum: There is no mediastinal lymphadenopathy. Angela: Clear. Axillae: There is no axillary lymphadenopathy. Upper abdomen: There is a large hiatal hernia, with the majority of the stomach located in the thorax . Partially visualized upper abdominal viscera is otherwise grossly unremarkable. Skeletal structures: The skeletal structures are osteopenic. Advanced degenerative change and kyphosc oliosis is noted in the thoracic spine. There is a chronic compression deformity of T4. There are num erous chronic/healed bilateral rib fractures as well as chronic posttraumatic deformity of the sternu m and right-sided transverse processes in the thoracic spine. Arthritic change is seen in the shoulde rs. No lytic or blastic bony lesions are seen. Soft tissues: There is body wall edema. IMPRESSION: 1. There is no evidence of pulmonary embolus in the main, lobar, or segmental pulmonary arteries. 2. Cardiomegaly with evidence of congestive failure and mild pulmonary edema. 3. Small to moderate pleural effusions with dependent consolidation. 4. Large hiatal hernia. 5. Additional findings as above. ACT 112: Negative or not required by law. Electronically signed by: Semaj Luong M.D. 09/30/2021 4:18 PM
[2021-09-30] MEDS ORDERED: FUROSEMIDE 40 MG/4 ML VIAL IV ONE (16:44)
[2021-09-30 17:46] LABS: Appearance Urine Clear (Clear); Bacteria Urine Automated Negative (Negative); Bilirubin Urine Negative (Negative); Blood Urine Negative (Negative); Color Urine Dark Yellow; Epithelial Cell Urine Auto >30 /lpf (0-5); Glucose Urine UA Negative (Negative); Ketones Urine Trace (Negative); Leukocyte Esterase Urine Negative (Negative); Nitrite Urine Negative (Negative); Protein Urine 1+ (Negative); Specific Gravity Urine 1.041 (1.000-1.030); Urobilinogen Urine Negative (Negative)
--- NOTE | 2021-09-30 17:50 | History & Physical Report ---
Date of Service September 30, 2021 Assessment & Plan (1) Hyponatremia: Plan: Hyponatremia of 117 - decrease from 130 over the past 3 weeks - Asymptomatic - currently appears as hypervolemic hyponatremia- Edema, BNP 1631, hypoosmolar with serum osmo 246 - her Spec grav is elevated at 1.041- with possible SIADH involvement- ? possible from chronic pain over past month - CT non con of the head with previous falls - eval for any intracranial process - Urine osmo- 526 - JAMES not beneficial at this time with concurrent diuretic therapy - TSH pending - Random Cortisol - 4- however is on Prednisone at home- hold - Obtain ECHO in the AM evaluation of worsening heart function - Place Rosario for feeling of not being able to void- not retaining - Offending medications on hold: Prednisone, Flecainide, Duloxetine - although she has been on these for prolonged time except the prednisone- flecainide as below on hold as could be toxic or lead to toxicity with above level - Lasix given already IV 20mg in EMD- follow urine output- if no response- Bumex - FREE WATER RESTRICT to 1.5L - BMP q4 hours- sodium level drops 3% bolus 150ml (2) Bilateral edema of lower extremity: Plan: As above - Multifactorial - ECHO in am (3) Chronic kidney disease, stage III (moderate): Plan: Stable - CARE DIRECTOR not elevated and BUN stable- appears to be perfusing well and room to diurese (4) GERD without esophagitis: Plan: Continue PPI- Omeprazole (5) Hypertension: Plan: Controlled (6) PAF (paroxysmal atrial fibrillation): Plan: Hold Flecainide with hyponatremia- send Flecainide level- send out so likely won't assist - higher level may either cause or be a cause of hyponatremia Continue Diltazem (7) LVH (left ventricular hypertrophy): Plan: As above History of Present Illness Primary Care Provider: Kimber Prater, DO 81 YOF with medical history of: Dyspnea, HTN, LVH, HFpEF, PAF (on Eliquis), HLD, knee pain, cellulitis, UTI, stubbed toe (was placed on prednisone 09/22), falls with periprosthetic hip frx, right tib fib frx and was nonweightbearing (08/24-09/24). Patient comes to the EMD today for complaints of increase dyspnea, and inability to urinate and continual leg swelling. Patient has been following with cardiology and her PCP for myriad of problems that include UTI that was pansensitive E.COLI completed abx treatment. She has also been treated for a lower leg cellulitis of her left leg with clindamycin and Augmentin. From a cardiology perspective she was having increase in lower extremity edema and had her Lasix dose increased at the beginning of September to 40 mg daily and then has been back to her 20mg dose every other day. This has been ongoing with follow up with PCP on 09/26/21 with increase in her Lasix to 40mg in am and 20mg Lasix at night, as well as recommended compression stockings. Today she feels that she is not able to urinate but her bladder fills full. She states that she is taking her medications as prescribed, but when asked how states that 20mg Lasix every other day. She states that she eats toast and coffee for breakfast and yesterday had hotdogs and beans for dinner. Her BMP was notable for a decrease in her NA level to 117 with chloride level of 80 as well as serum osmo of 246. Her renal function is normal. Her BNP is elevated and mild HScTNI of 15. Overall she is edematous from her mid shins to her sacrum. Her bladder is palpably distended with feeling of urge to void. Overall she is retaining fluid and to complicate her fluid status had initiation of steroids for her toe on 09/22. Her left leg wound appears to be healing. Will place Rosario, free water restrict, Lasix already given in EMD. Will obtain ECHO in am. Further workup pending. COVID test on admission is: NEGATIVE Allergies Allergy/AdvReac Type Severity Reaction Status Date / Time No Known Allergies Allergy Verified 09/30/21 17:39 Home Medications Medication Instructions Recorded Confirmed Type zmtemevb-szy-ekfcq acid 0.4 1 tab PO DAILY 09/10/20 09/30/21 History mg-lycopene 300 mcg-lutein 250 mcg tablet (Centrum Silver) duloxetine 60 mg capsule,delayed 60 mg PO QAM #90 cap 01/21/21 09/30/21 Rx release diltiazem HCl 120 mg capsule,24 120 mg PO QAM #90 cap 06/26/21 09/30/21 Rx hr,extended release flecainide 100 mg tablet 100 mg PO Q12H #180 tab 06/26/21 09/30/21 Rx ferrous sulfate 325 mg (65 mg 325 mg PO DAILY #30 tab 07/21/21 09/30/21 Rx iron) tablet,delayed release magnesium oxide 400 mg (241.3 mg 400 mg PO BID #60 tab 07/21/21 09/30/21 Rx magnesium) tablet miscellaneous medical supply 1 ea MISCELLANEOUS DAILY #1 ea 07/23/21 09/30/21 Rx acetaminophen 500 mg tablet 500 mg PO Q6H PRN 08/06/21 09/30/21 History (Tylenol Extra Strength) diphenhydramine 25 1 tab PO HS PRN tab 08/06/21 09/30/21 History mg-acetaminophen 500 mg tablet (Tylenol PM Extra Strength) vitamins A,C,R-ifrq-avrshd 14,320 1 cap PO BID cap 08/06/21 09/30/21 History unit-226 mg-200 unit capsule (PreserVision AREDS) omeprazole 40 mg capsule,delayed 40 mg PO QAM #90 cap 08/26/21 09/30/21 Rx release tramadol 50 mg tablet 50 mg PO Q4H PRN #30 tab 08/26/21 09/30/21 Rx apixaban 5 mg tablet (Eliquis) 5 mg PO BID #60 tab 09/05/21 09/30/21 Rx prednisone 20 mg tablet 40 mg PO DAILY 5 Days #10 tab 09/23/21 09/30/21 Rx clindamycin HCl 300 mg capsule 300 mg PO Q8H 7 Days #21 cap 09/25/21 09/30/21 Rx furosemide 20 mg tablet See Rx Instructions .ROUTE 09/26/21 09/30/21 Rx .COMPLEX #30 tab Past Med/Surg History Medical History Anemia Anxiety Chronic anticoagulation Chronic kidney disease, stage III (moderate) Cystic thyroid nodule Depression Diaphragmatic hernia Diastolic dysfunction Disc degeneration, lumbar Diverticulosis Fall GERD without esophagitis Grief Loss of spouse August 2018 Hypercholesterolemia Hypertension Lumbar spinal stenosis LVH (left ventricular hypertrophy) Macular degeneration Mitral regurgitation MODERATE Osteoarthritis Osteoporosis PAF (paroxysmal atrial fibrillation) Rheumatoid arthritis Right thyroid nodule Scoliosis Venous insufficiency of both lower extremities Vitamin D deficiency Surgical History H/O bilateral oophorectomy B/L SALPINGOOPHORECTOMY= 04/12/17= GRADE VIEW 2, MAC 3, ETT 7.5 AT [facility] History of adenoidectomy History of cataract surgery RIGHT/LEFT History of hysterectomy (1988) History of open reduction and internal fixation (ORIF) procedure (1993) RIGHT ANKLE History of tonsillectomy History of tooth extraction History of total hip arthroplasty RIGHT Knee arthropathy w/ medial meniscus repair in 10/2017 S/P ORIF (open reduction internal fixation) fracture (~03/2021) Left Hip S/P thyroid surgery right thyroid lobectomy Dr. Thornton 01/06/19 Status post arthroscopic partial medial meniscectomy (11/02/17) R knee Family History Father Coronary heart disease Colorectal cancer Kidney disease Lung disease Mother Coronary heart disease Myocardial infarction Gallbladder disease Sister Diabetes Colorectal cancer Denies family history of Ovarian cancer Prostate cancer Breast cancer Social History Smoking Status: Never smoker Second Hand Exposure: Yes; Hx Alcohol Use: Yes Alcohol type: beer Alcohol Intake Frequency: 4 or More x per/Week Hx Substance Use: No Preferred Language: Greek Communication Ability: Effective Visual Impairment: No Limitations Hearing Ability: Use of Hearing Aid Asbestos Textile Supervisor Required: No Beliefs That Will Affect Care: None marital status: / marital status details: passed August 2018 Current Living Situation: Family Current Living Situation Comment: with daughter current occupational status: retired current occupation: [employer] How many Children do You have: 2 Feels Safe at Home: Yes Childhood Exposure to Second-Hand Smoke: No Diet Comment: regular caffeine: Yes (1/2 cup a day) during the past year weight has: decreased > 10 lbs Dental Care, Regularly: Yes Physical Activity Frequency: Daily Seatbelt Use: always Sunscreen Use: No Assistive Devices: Glasses and Walker Review of Systems Review of Systems: REVIEW OF SYSTEMS: Constitutional: No fever, sweats or chills Eyes: No diplopia, no worsening or blurred vision ENT: normal hearing, no trouble swallowing Respiratory: (+) dyspnea on exertion, No cough, sputum, dyspnea at rest Cardiovascular: (+) edema to lower extremities, No chest pain, tightness or palpitations Abdomen: (+) feeling of not being able to urinate, No pain, nausea, vomiting, diarrhea or constipation Musculoskeletal: (+) left knee pain, back pain Neurologic: No weakness, numbness/tingling, or balance problems Psychiatric: No anxiety or depression Skin: (+) left leg wound, No rash or itch Physical Exam Physical Exam: PHYSICAL EXAM: General: awake, alert, no apparent distress Head: Normocephalic, atraumatic ENT: Difficulty hearing, PERRLA, EOMI, no pharyngeal exudate, mucous membranes moist Neuro: AAO x 3, speech clear and appropriate, strength intact bilaterally 5/5, sensation intact and equal all extremities and dermatomes, no pronator drift Chest: equal rise and fall of the chest, no accessory muscle use, no heaves or thrills, fine crackles throughout, on 2LNC Cardiac: irregular rate and rhythm, telemetry reviewed, skin warm dry, cap refill 3 seconds, peripheral pulses +2 no JVD, no murmur, +2 pitting edema from calves to sacrum GI: NABS x 4 quadrants, soft, nontender to palpation, no rebound, guarding or tenderness : rosario placed 250 cc out on placement Psych: Normal mood and affect Skin: healing wound to left leg Results & Data Results & Data ([facility]) Vital Signs (Past 12 Hours) Vital Signs Temp Pulse Pulse Resp BP Pulse Ox 09/30/21 16:00 96 H 18 131/77 95 09/30/21 13:48 88 18 148/91 H 95 09/30/21 13:20 36.8 C 90 20 97 Laboratory Results Abnormal lab results 09/30/21 09/30/21 09/30/21 Range/Units 14:38 14:38 14:38 RBC 3.70 L (4.2-5.4) M/uL Hct 35.1 L (37-47) % RDW Std Deviation 50.3 H (36.4-46.3) fL RDW Coeff of Tyra 14.7 H (11.5-14.5) % Neut # (Auto) 7.70 H (1.4-6.5) K/uL Lymph # (Auto) 0.63 L (1.2-3.4) K/uL Trego # (Auto) 1.05 H (0.11-0.59) K/uL Sodium 117 L* (136-145) mmol/L Chloride 80 L (98-107) mmol/L Creatinine 0.54 L (0.6-1.2) mg/dl BUN/Creatinine Ratio 22.2 H (10-20) Glucose 120 H (70-99(Fasting)) mg/dl Osmolality (280-300) mOsm/kg Calcium 7.8 L (8.5-10.1) mg/dl Total Bilirubin 1.1 H (0.2-1.0) mg/dl Alkaline Phosphatase 118 H (34-104) U/L Troponin I High Sens 15.1 H (0-14) pg/ml B-Natriuretic Peptide 1621 H (0-100) pg/ml Total Protein 5.6 L (6.0-8.3) gm/dl Albumin 3.2 L (3.4-5.0) gm/dl Globulin 2.4 L (2.5-4.0) gm/dl 09/30/21 Range/Units 15:46 RBC (4.2-5.4) M/uL Hct (37-47) % RDW Std Deviation (36.4-46.3) fL RDW Coeff of Tyra (11.5-14.5) % Neut # (Auto) (1.4-6.5) K/uL Lymph # (Auto) (1.2-3.4) K/uL Trego # (Auto) (0.11-0.59) K/uL Sodium (136-145) mmol/L Chloride (98-107) mmol/L Creatinine (0.6-1.2) mg/dl BUN/Creatinine Ratio (10-20) Glucose (70-99(Fasting)) mg/dl Osmolality 246 L (280-300) mOsm/kg Calcium (8.5-10.1) mg/dl Total Bilirubin (0.2-1.0) mg/dl Alkaline Phosphatase (34-104) U/L Troponin I High Sens (0-14) pg/ml B-Natriuretic Peptide (0-100) pg/ml Total Protein (6.0-8.3) gm/dl Albumin (3.4-5.0) gm/dl Globulin (2.5-4.0) gm/dl Diagnostic Findings Chest X-Ray 09/30/21 14:07 XR chest 1V portable HISTORY: 81 years-old Female Chest Pain . Atypical chest pain COMPARISON: Chest radiograph 07/01/2019 TECHNIQUE: Portable AP view of the chest FINDINGS: Cardiac silhouette is enlarged. Right greater than left layering pleural effusions with bibasilar consolidation. Pulmonary vascular congestion with interstitial coarsening. No pneumothorax. Lucency of the medial right lung base may represent aerated lung or hiatal hernia. A cavitary pulmonary process is considered less likely. Degenerative changes of the shoulders and spine. Healed chronic bilateral rib fracture deformities. IMPRESSION: 1. Cardiomegaly with pulmonary edema. 2. Right greater than left layering pleural effusions with bibasilar consolidation. ACT 112: Negative or not required by law. The above report was generated using voice recognition software. It may contain grammatical, syntax or spelling errors. Electronically signed by: Ezra Gillis M.D. 09/30/2021 2:31 PM Chest CTA 09/30/21 14:51 CT ANGIOGRAM OF THE CHEST CLINICAL HISTORY: Dyspnea. COMPARISON STUDY: Chest x-ray dated 09/30/2021. Chest CT dated 06/09/2021. TECHNIQUE: Following the IV administration of 118 cc of Optiray 320, CT angiogram of the chest was performed from the upper abdomen to the thoracic inlet utilizing the pulmonary embolus protocol. Images are reviewed in the axial, sagittal, and coronal planes. 3-D MIPS images are created and assessed. IV contrast was administered without complication. A dose lowering technique was utilized adhering to the principles of ALARA. CT DOSE: 292.37 mGy.cm FINDINGS: Thyroid: Atrophic. Thoracic aorta: There is mild ectasia of the ascending thoracic aorta which measures up to 3.8 cm in diameter. The remainder of the thoracic aorta is normal in caliber, and the arch demonstrates standard 3-vessel anatomy. The thoracic aorta is not opacified. Pulmonary vasculature: The main pulmonary arteries are mildly dilated suggesting pulmonary artery hypertension. There are no filling defects identified in main, lobar, or segmental pulmonary branches to suggest pulmonary embolus. Heart: The heart is enlarged and without pericardial effusion. Lungs and pleural spaces: There are small to moderate pleural effusions with dependent consolidation. Mild groundglass opacities are seen bilaterally and there is intralobular septal thickening. The trachea and central airways are clear. Mediastinum: There is no mediastinal lymphadenopathy. Angela: Clear. Axillae: There is no axillary lymphadenopathy. Upper abdomen: There is a large hiatal hernia, with the majority of the stomach located in the thorax. Partially visualized upper abdominal viscera is otherwise grossly unremarkable. Skeletal structures: The skeletal structures are osteopenic. Advanced degenerative change and kyphoscoliosis is noted in the thoracic spine. There is a chronic compression deformity of T4. There are numerous chronic/healed bilateral rib fractures as well as chronic posttraumatic deformity of the sternum and right-sided transverse processes in the thoracic spine. Arthritic change is seen in the shoulders. No lytic or blastic bony lesions are seen. Soft tissues: There is body wall edema. IMPRESSION: 1. There is no evidence of pulmonary embolus in the main, lobar, or segmental pulmonary arteries. 2. Cardiomegaly with evidence of congestive failure and mild pulmonary edema. 3. Small to moderate pleural effusions with dependent consolidation. 4. Large hiatal hernia. 5. Additional findings as above. ACT 112: Negative or not required by law. Electronically signed by: Semaj Luong M.D. 09/30/2021 4:18 PM Medications Administered Home Medications mdehdzyo-apy-fdoub acid 0.4 mg-lycopene 300 mcg-lutein 250 mcg tablet (Centrum Silver) 1 tab PO DAILY 09/10/20 [History Confirmed 09/26/21] duloxetine 60 mg capsule,delayed release 60 mg PO QAM #90 cap 01/21/21 [Rx Confirmed 09/26/21] diltiazem HCl 120 mg capsule,24 hr,extended release 120 mg PO QAM #90 cap 06/26/21 [Rx Confirmed 09/26/21] flecainide 100 mg tablet 100 mg PO Q12H #180 tab 06/26/21 [Rx Confirmed 09/26/21] ferrous sulfate 325 mg (65 mg iron) tablet,delayed release 325 mg PO DAILY #30 tab 07/21/21 [Rx Confirmed 09/26/21] magnesium oxide 400 mg (241.3 mg magnesium) tablet 400 mg PO BID #60 tab 07/21/21 [Rx Confirmed 09/26/21] miscellaneous medical supply 1 ea MISCELLANEOUS DAILY #1 ea 07/23/21 [Rx Confirmed 09/26/21] acetaminophen 500 mg tablet (Tylenol Extra Strength) 500 mg PO Q6H PRN 08/06/21 [History Confirmed 09/26/21] diphenhydramine 25 mg-acetaminophen 500 mg tablet (Tylenol PM Extra Strength) 1 tab PO HS PRN tab 08/06/21 [History Confirmed 09/26/21] vitamins A,C,Y-ckjo-piwldo 14,320 unit-226 mg-200 unit capsule (PreserVision AREDS) 1 cap PO BID cap 08/06/21 [History Confirmed 09/26/21] omeprazole 40 mg capsule,delayed release 40 mg PO QAM #90 cap 08/26/21 [Rx Confirmed 09/26/21] tramadol 50 mg tablet 50 mg PO Q4H PRN #30 tab 08/26/21 [Rx Confirmed 09/26/21] apixaban 5 mg tablet (Eliquis) 5 mg PO BID #60 tab 09/05/21 [Rx Confirmed 09/26/21] prednisone 20 mg tablet 40 mg PO DAILY 5 Days #10 tab 09/23/21 [Rx Confirmed 09/26/21] clindamycin HCl 300 mg capsule 300 mg PO Q8H 7 Days #21 cap 09/25/21 [Rx Confirmed 09/26/21] furosemide 20 mg tablet See Rx Instructions .ROUTE .COMPLEX #30 tab 09/26/21 [Rx Confirmed 09/26/21] Discontinued Medications Furosemide (Furosemide 40 Mg/4 Ml Vial) 40 mg IV ONE ONE Stop: 09/30/21 16:45 Last Admin: 09/30/21 17:23 Dose: 40 mg Documented by: [id number] Ioversol (Optiray 320 125ml) 118 ml IV ONCE ONE Stop: 09/30/21 16:08 Last Admin: 09/30/21 16:07 Dose: 118 ml Documented by: [id number] Additional Comments: Sinus rhythm with 1st degree A-V block Septal infarct (cited on or before 30-SEP-2021) ST & T wave abnormality, consider lateral ischemia Abnormal ECG When compared with ECG of 30-JUN-2021 14:44, QRS duration has increased Serial changes of Septal infarct Present Code Status & VTE Plan Code Status CODE: FULL VTE: SCDS, Eliquis VTE Prophylaxis Plan VTE Prophylaxis will be ordered: Yes Supervising Physician Co-Signing Physician Notes I personally saw and examined the patient. I verified all clemente points and agree with AUSTEN Prado with the following exceptions and/or additions: 81 year old female presents with shortness of breath, leg swelling and difficulty urinating. Main concern from workup in ER is hyponatremia with sodium level 117 from baseline 130 just 25 days earlier. O/E HS1+2, no murmurs, RRR, Chest fine crackles posteriorly and bibasal reduced breath sounds, Abdo SNT, leg edema 2+ edema to abdomen A/P Hypervolemic hyponatremia - certainly some of her low sodium can be explained by increased free water volume however difficult to explain why it is quite so low and may have a degree of SIADH on top of this. Treatment would be the same initially however and is already responding to Lasix as above with repeat sodium level 117->119. CT head obtained due to concern about other cause of SIADH. Agree with flecainide on hold due to potential toxicity due to the hyponatremia but less likely this is the cause given chronic use and no changes in dose. Continue to diurese as able and will monitor sodium to see if this comes back to normal without sodium tablets. TTE pending. Otherwise A/P as above. PG Care Time/CCT Total # of Minutes Spent Total Time Spent with Patient: Total time spent is greater than 50% in coordination of care (as documented) at patient's floor/unit and/or counseling patient: Coding Level of Care Code 86598 Initial Inpt Care Lvl 3 Diagnoses Hyponatremia E87.1 Bilateral edema of lower extremity R60.0 Chronic kidney disease, stage III (moderate) N18.3 GERD without esophagitis K21.9 Hypertension I10 PAF (paroxysmal atrial fibrillation) I48.0 LVH (left ventricular hypertrophy) I51.7
--- NOTE | 2021-09-30 18:58 | CT Scan Report ---
CT SCAN OF THE BRAIN WITHOUT IV CONTRAST CLINICAL HISTORY: Fall one month ago. Hyponatremia. COMPARISON STUDY: CT of the brain dated 06/08/2021 TECHNIQUE: Unenhanced axial CT scan of the brain is performed from the vertex to the skull base. A do se lowering technique was utilized adhering to the principles of ALARA. The examination is degraded b y the presence of residual IV contrast. CT DOSE: 614.27 mGy.cm FINDINGS: Brain parenchyma: There is age-related involutional change noting advanced confluent subcortical and periventricular microangiopathic disease. There is no evidence of hemorrhage, mass effect, or f acute territorial ischemia by CT criteria. Zayas-white matter differentiation is preserved. No extra-axial fluid collection is seen. Ventricles, sulci, cisterns: Prominent secondary to involutional change. Intracranial vasculature: There is atherosclerotic calcification of the cavernous carotid and vertebr al arteries. Calvarium: Unremarkable. Sinuses and mastoids: The paranasal sinuses are clear. The mastoid air cells are well pneumatized. Orbits: The bony orbits are grossly intact. There are bilateral ocular lens implants. IMPRESSION: There is no evidence of hemorrhage, mass effect, or acute territorial ischemia by CT nicho harvey. ACT 112: Negative or not required by law. Electronically signed by: Semaj Luong M.D. 09/30/2021 6:56 PM
[2021-09-30] MEDS ORDERED: ACETAMINOPHEN 325 MG TAB PO PRN (19:00)
[2021-09-30] MEDS ORDERED: ACETAMINOPHEN 500 MG TAB PO PRN (19:00)
[2021-09-30] MEDS ORDERED: traMADol HCL 50 MG TABLET PO PRN (19:00)
[2021-09-30] MEDS: APIXABAN 5 MG TABLET PO SCH (20:10)
[2021-09-30 20:48] LABS: BUN Creatinine Ratio 19.7 (10-20); Creatinine Clr Calc Pharmacy 66.1 ml/min; Est GFR (African American) 97.8 ml/min; Est GFR (Non-African American) 84.4 ml/min; Potassium 3.8 mmol/L (3.5-5.1); Troponin I High Sensitivity 18.7 pg/ml (0-14)
--- NOTE | 2021-09-30 21:09 | XRay Report ---
KUB CLINICAL HISTORY: Generalized abdominal pain. FINDINGS: 2 AP supine abdominal radiographs are correlated with abdominal CT dated 02/18/2019. There is a nonobstructed abdominal bowel gas pattern. No evidence of intraperitoneal free air is seen on th pedro supine images. There are no abnormal abdominal calcifications. The skeletal structures are osteop enic. There is advanced lumbosacral spondylosis and scoliosis. A right hip arthroplasty is in place a nd postoperative change is partially visualized in the left proximal femur. There are healed pubic ri ng fractures as well as healed left-sided rib fractures. IMPRESSION: Nonobstructed abdominal bowel gas pattern. Electronically signed by: Semaj Luong M.D. 09/30/2021 9:07 PM
[2021-10-01 06:43] LABS: Eosinophils # (auto) 0.01 K/uL (0-0.5); Eosinophils % (auto) 0.1 %; Hematocrit (blood only) 36.6 % (37-47); Hemoglobin 12.7 g/dL (12.0-16.0); Immature Granulocytes # (auto) 0.03 K/uL (0.00-0.02); Immature Granulocytes % (auto) 0.3 %; Lymphocytes % (auto) 13.7 %; Mean Corpuscular Hemoglobin 33.2 pg (25-34); Mean Corpuscular Hgb Conc 34.7 g/dL (32-36); Mean Corpuscular Volume 95.6 fL (80-100); Mean Platelet Volume 9.3 fL (7.4-10.4); Monocytes # (auto) 0.78 K/uL (0.11-0.59); Monocytes % (auto) 8.9 %; Neutrophils # (auto) 6.76 K/uL (1.4-6.5); Platelet Count 327 K/uL (130-400); RDW Coefficient of Variation 15.1 % (11.5-14.5); RDW Standard Deviation 52.4 fL (36.4-46.3); Red Blood Count 3.83 M/uL (4.2-5.4); White Blood Count 8.78 K/uL (4.8-10.8)
[2021-10-01 07:12] LABS: Calcium 7.6 mg/dl (8.5-10.1); Est GFR (African American) 101.2 ml/min; Est GFR (Non-African American) 87.4 ml/min; Magnesium 1.7 mg/dl (1.7-2.4); Potassium 3.2 mmol/L (3.5-5.1)
[2021-10-01 07:13] LABS: Troponin I High Sensitivity 19.7 pg/ml (0-14)
[2021-10-01] MEDS ORDERED: FUROSEMIDE 40 MG/4 ML VIAL IV ONE ×2 (08:23)
--- NOTE | 2021-10-01 08:23 | Hospitalist Progress Note ---
Date of Service October 01, 2021 Assessment & Plan (1) Hyponatremia: Plan: Hyponatremia slowlyl improving with diuresis - Asymptomatic - hypervolemic hyponatremia- Edema, pulmonary edema, BNP 1631, hypoosmolar with serum osmo 246 - CT non con of the head with previous falls - negative l for any intracranial process - Urine osmo- 526 - random urine sodium difficult to interpret with diuretics given in the ER - TSH normal Random Cortisol - 4- however is on Prednisone at home- hold - pending ECHO, last echo 03/25 with preserved EF, elevated right heart pressures no sig valvular disease - Offending medications on hold: Prednisone, Flecainide, Duloxetine - although she has been on these for prolonged time except the prednisone- flecainide as below on hold as could be toxic or lead to toxicity with above level - Lasix given 40 mg iv x 3 doses - FREE WATER RESTRICT to 1.5L (2) Bilateral edema of lower extremity: Plan: improving (3) Chronic kidney disease, stage III (moderate): Plan: Stable - 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- appears to be perfusing well and room to diurese (4) GERD without esophagitis: Plan: Continue PPI- Omeprazole (5) Hypertension: Plan: Controlled (6) PAF (paroxysmal atrial fibrillation): Plan: Hold Flecainide with hyponatremia- send Flecainide level- send out so likely won't assist - higher level may either cause or be a cause of hyponatremia Continue Diltazem (7) LVH (left ventricular hypertrophy): Plan: As above Admission and Anticipated Discharge Date Admission Date: September 30, 2021 Subjective Pt states she feels somewhat improved, has no complaints of shortness of breath or le swelling but has weakness, rosario cath with good output no other issues at this time. Review of Systems Review of Systems: Mild distress and fatigue no headache, no visual changes no speech or swallowing issues no chest pain, pressure or palpitations no shortness of breath at rest did not walk in room, cough or wheezes no abdominal pain, nausea or vomiting, diarrhea or constipation no dysuria, hematuria or frequency no focal joint pain does have some minor le swelling no back pain, CVA tenderness or radicular pain no bruising, bleeding or rashes no focal signs of weakness or numbness or altered sensation no complaints of anxiety or depression.. Physical Exam Physical Exam: The patient appeared well nourished and normally developed. Vital signs as documented. Head exam is normocephalic atraumatic Neck is with JVD, no thyromegaly, or carotid bruits. Lungs has some basilar rales. Cardiac exam, Rhythm is regular.. ROGELIO Abdominal exam reveals normal bowel sounds, soft non tender, no masses Extremities are trace edematous and both pedal pulses are present Neurologic exam is alert and oriented, no focal loss of strength or sensation Skin is without bruises or rashes Psychologically is without concerns for anxiety or depression.. Results & Data Results & Data ([facility]) Vital Signs (Past 12 Hours) Vital Signs Temp Pulse Pulse Resp BP Pulse Ox 10/01/21 07:19 92 H 10/01/21 06:51 98.1 F 92 H 20 121/78 100 10/01/21 04:08 97.7 F 93 H 18 105/68 100 10/01/21 00:07 98.1 F 97 H 20 105/74 99 09/30/21 22:17 95 H 09/30/21 22:07 97.5 F L 95 H 20 112/75 97 PG Care Time/CCT Total # of Minutes Spent Total Time Spent with Patient: Total time spent is greater than 50% in coordination of care (as documented) at patient's floor/unit and/or counseling patient: Coding Level of Care Code 20179 Subseq Hosp Care Lvl 3 Diagnoses Hyponatremia E87.1 Bilateral edema of lower extremity R60.0 Chronic kidney disease, stage III (moderate) N18.3 GERD without esophagitis K21.9 Hypertension I10 PAF (paroxysmal atrial fibrillation) I48.0 LVH (left ventricular hypertrophy) I51.7
--- NOTE | 2021-10-01 09:00 | Electrocardiogram Report ---
Test Reason : Blood Pressure : / mmHG Vent. Rate : 088 BPM Atrial Rate : 088 BPM P-R Int : 292 ms QRS Dur : 124 ms QT Int : 374 ms P-R-T Axes : 044 -20 170 degrees QTc Int : 452 ms Poor data quality, interpretation may be adversely affected Sinus rhythm with 1st degree A-V block Possible Old Septal infarct Non-specific intra-ventricular conduction delay Diffuse Minor Nonspecific T wave abnormality Abnormal ECG When compared with ECG of 30-JUN-2021 14:44, QRS duration has increased Confirmed by Chavez Robledo ([id number]) on 10/01/2021 8:59:33 AM Referred By: REFERRED SELF Confirmed By:Chavez Robledo
--- NOTE | 2021-10-01 09:00 | Electrocardiogram Report ---
Test Reason : Blood Pressure : / mmHG Vent. Rate : 093 BPM Atrial Rate : 093 BPM P-R Int : 262 ms QRS Dur : 112 ms QT Int : 416 ms P-R-T Axes : 059 -19 173 degrees QTc Int : 517 ms Sinus rhythm with 1st degree A-V block Possible Old Septal infarct Minor Non-specific intra-ventricular conduction delay Diffuse Minor Nonspecific T wave abnormality Prolonged QT Abnormal ECG When compared with ECG of 30-SEP-2021 13:37, QT has lengthened Reconfirmed by Chavez Robledo ([id number]) on 10/01/2021 10:18:45 AM Referred By: REFERRED SELF Confirmed By:Chavez Robledo
[2021-10-01] MEDS: dilTIAZem ER 120 MG CAPCR PO SCH (09:21)
[2021-10-01] MEDS: APIXABAN 5 MG TABLET PO SCH ×2 (09:21→21:15)
[2021-10-01] MEDS: PANTOprazole 40 MG TAB PO SCH (09:21)
--- NOTE | 2021-10-01 10:25 | XCELERA ---
[id number]
[2021-10-01 16:15] LABS: Calcium 7.8 mg/dl (8.5-10.1); Creatinine Clr Calc Pharmacy 65.8 ml/min; Est GFR (African American) 97.8 ml/min; Est GFR (Non-African American) 84.4 ml/min; Potassium 3.5 mmol/L (3.5-5.1)
[2021-10-02 06:57] LABS: Basophils # (auto) 0.01 K/uL (0-0.2); Basophils % (auto) 0.1 %; Eosinophils # (auto) 0.02 K/uL (0-0.5); Eosinophils % (auto) 0.3 %; Hematocrit (blood only) 34.9 % (37-47); Hemoglobin 12.1 g/dL (12.0-16.0); Immature Granulocytes # (auto) 0.03 K/uL (0.00-0.02); Immature Granulocytes % (auto) 0.4 %; Lymphocytes # (auto) 1.06 K/uL (1.2-3.4); Lymphocytes % (auto) 15.2 %; Mean Corpuscular Hemoglobin 33.9 pg (25-34); Mean Corpuscular Hgb Conc 34.7 g/dL (32-36); Mean Corpuscular Volume 97.8 fL (80-100); Mean Platelet Volume 8.9 fL (7.4-10.4); Monocytes # (auto) 0.86 K/uL (0.11-0.59); Monocytes % (auto) 12.3 %; Neutrophils # (auto) 4.99 K/uL (1.4-6.5); Neutrophils % (auto) 71.7 %; Platelet Count 292 K/uL (130-400); RDW Coefficient of Variation 15.1 % (11.5-14.5); Red Blood Count 3.57 M/uL (4.2-5.4); White Blood Count 6.97 K/uL (4.8-10.8)
[2021-10-02 07:16] LABS: BUN Creatinine Ratio 13.6 (10-20); Calcium 7.8 mg/dl (8.5-10.1); Est GFR (African American) 95.3 ml/min; Est GFR (Non-African American) 82.3 ml/min; Magnesium 1.7 mg/dl (1.7-2.4); Potassium 3.7 mmol/L (3.5-5.1)
[2021-10-02] MEDS ORDERED: FUROSEMIDE 40 MG/4 ML VIAL IV ONE (07:42)
[2021-10-02] MEDS: dilTIAZem ER 120 MG CAPCR PO SCH (07:55)
[2021-10-02] MEDS: APIXABAN 5 MG TABLET PO SCH ×2 (07:55→21:00)
[2021-10-02] MEDS: PANTOprazole 40 MG TAB PO SCH (07:55)
[2021-10-02] MEDS ORDERED: MAGNESIUM SULFATE / D5W 1 GM/100 ML BAG IV ONE (08:00)
--- NOTE | 2021-10-02 15:44 | Hospitalist Progress Note ---
Date of Service October 02, 2021 Assessment & Plan (1) Hyponatremia: Plan: Hyponatremia of 117 - decrease from 130 over the past 3 weeks - did have some weakness in retrospect - currently appears as hypervolemic hyponatremia- Edema, BNP 1631, hypoosmolar with serum osmo 246 - her Spec grav is elevated at 1.041- with possible SIADH involvement- ? possible from chronic pain over past month - CT non con of the head with previous falls - eval for any intracranial proc ess - Urine osmo- 526 - JAMES not beneficial at this time with concurrent diuretic therapy - TSH pending - Random Cortisol - 4- however is on Prednisone at home- hold - Echo 10/01 shows reduced systolic funtion, to 45% with mild global hypokinesis to LV - Place Loera for feeling of not being able to void- not retaining - Offending medications on hold: Prednisone, Flecainide, Duloxetine - although she has been on these for prolonged time except the prednisone- flecainide as below on hold as could be toxic or lead to toxicity with above level - Lasix given already IV 20mg in EM - FREE WATER RESTRICT to 1.5L - (2) Bilateral edema of lower extremity: Plan: - Multifactorial, certainly influenced by acute on chronic systolic heart failure may consider heart failure clinic enrollment - (3) Chronic kidney disease, stage III (moderate): Plan: 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 - 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 BUN 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- appears to be perfusing well and room to diurese (4) GERD without esophagitis: Plan: Continue PPI- Omeprazole (5) Hypertension: Plan: Controlled (6) PAF (paroxysmal atrial fibrillation): Plan: Hold Flecainide with hyponatremia- send Flecainide level- send out so likely won't assist - higher level may either cause or be a cause of hyponatremia will transition diltiazem to metoprolol and add afterload reduction if tolerated (7) LVH (left ventricular hypertrophy): Plan: As above Admission and Anticipated Discharge Date Admission Date: September 30, 2021 Subjective pt continues to do well, biggest issue is that she has left had contusion, she has good improvement in her mentation and did comment when I asked her if there was anyting else I could get her she suggested I get her a beer! Review of Systems Review of Systems: Mild distress and fatigue no headache, no visual changes no speech or swallowing issues no chest pain, pressure or palpitations no shortness of breath at rest did not walk in room, cough or wheezes no abdominal pain, nausea or vomiting, diarrhea or constipation no dysuria, hematuria or frequency no focal joint pain does have some minor le swelling no back pain, CVA tenderness or radicular pain bruising to right dorsal hand and wrist no focal signs of weakness or numbness or altered sensation no complaints of anxiety or depression.. Physical Exam Physical Exam: The patient appeared well nourished and normally developed. Vital signs as documented. Head exam is normocephalic atraumatic Neck is with JVD, no thyromegaly, or carotid bruits. Lungs has some basilar rales. Cardiac exam, Rhythm is regular.. ROGELIO Abdominal exam reveals normal bowel sounds, soft non tender, no masses Extremities are trace edematous and both pedal pulses are present Neurologic exam is alert and oriented, no focal loss of strength or sensation Skin is with bruises to the right wrist and hand Psychologically is without concerns for anxiety or depression.. Results & Data Results & Data ([facility]) Vital Signs (Past 12 Hours) Vital Signs Temp Pulse Pulse Resp BP Pulse Ox 10/02/21 15:00 97.7 F 95 H 18 98/64 L 96 10/02/21 14:53 90 10/02/21 11:45 98.1 F 86 20 102/70 100 10/02/21 08:00 97.3 F L 100 H 20 106/72 98 10/02/21 07:19 97 H PG Care Time/CCT Total # of Minutes Spent Total Time Spent with Patient: Total time spent is greater than 50% in coordination of care (as documented) at patient's floor/unit and/or counseling patient: Coding Level of Care Code 20370 Subseq Hosp Care Lvl 2 Diagnoses Hyponatremia E87.1 Bilateral edema of lower extremity R60.0 Chronic kidney disease, stage III (moderate) N18.3 GERD without esophagitis K21.9 Hypertension I10 PAF (paroxysmal atrial fibrillation) I48.0 LVH (left ventricular hypertrophy) I51.7
[2021-10-03 07:38] LABS: Eosinophils # (auto) 0.02 K/uL (0-0.5); Eosinophils % (auto) 0.3 %; Hematocrit (blood only) 35.9 % (37-47); Immature Granulocytes # (auto) 0.03 K/uL (0.00-0.02); Immature Granulocytes % (auto) 0.4 %; Lymphocytes # (auto) 1.09 K/uL (1.2-3.4); Lymphocytes % (auto) 16.1 %; Mean Corpuscular Hemoglobin 32.8 pg (25-34); Mean Corpuscular Hgb Conc 33.4 g/dL (32-36); Mean Corpuscular Volume 98.1 fL (80-100); Mean Platelet Volume 9.2 fL (7.4-10.4); Monocytes # (auto) 0.76 K/uL (0.11-0.59); Monocytes % (auto) 11.2 %; Neutrophils # (auto) 4.89 K/uL (1.4-6.5); Platelet Count 299 K/uL (130-400); RDW Coefficient of Variation 15.6 % (11.5-14.5); RDW Standard Deviation 55.4 fL (36.4-46.3); Red Blood Count 3.66 M/uL (4.2-5.4); White Blood Count 6.79 K/uL (4.8-10.8)
[2021-10-03 07:54] LABS: BUN Creatinine Ratio 14.5 (10-20); Calcium 8.1 mg/dl (8.5-10.1); Creatinine Clr Calc Pharmacy 62.4 ml/min; Est GFR (African American) 101.2 ml/min; Est GFR (Non-African American) 87.4 ml/min; Magnesium 1.9 mg/dl (1.7-2.4); Potassium 3.5 mmol/L (3.5-5.1)
[2021-10-03] MEDS ORDERED: FUROSEMIDE 40 MG TAB PO ONE (09:16)
[2021-10-03] MEDS: APIXABAN 5 MG TABLET PO SCH ×2 (09:46→20:55)
[2021-10-03] MEDS: PANTOprazole 40 MG TAB PO SCH (09:46)
[2021-10-03] MEDS: METOPROLOL SUCC 25MG EXT REL TAB PO SCH (10:45)
--- NOTE | 2021-10-03 14:00 | Hospitalist Progress Note ---
Date of Service October 03, 2021 Assessment & Plan (1) Hyponatremia: Plan: Hyponatremia of 117 - decrease from 130 over the past 3 weeks - did have some weakness in retrospect - currently appears as hypervolemic hyponatremia- Edema, BNP 1631, hypoosmolar with serum osmo 246 - CT non con of the head with previous falls - eval for any intracranial process - TSH normal - Random Cortisol - 4- however is on Prednisone at home- hold - Echo 10/01 shows reduced systolic funtion, to 45% with mild global hypokinesis to LV, previously LV function was normal - Offending medications on hold: Prednisone, Flecainide, Duloxetine - although she has been on these for prolonged time except the prednisone- flecainide as below on hold as could be toxic or lead to toxicity with above level (2) Bilateral edema of lower extremity: Plan: - Multifactorial, certainly influenced by acute on chronic systolic heart failure may consider heart failure clinic enrollment (3) Chronic kidney disease, stage III (moderate): Plan: Stable daily lasix (4) GERD without esophagitis: Plan: Continue PPI- Omeprazole (5) Hypertension: Plan: Controlled (6) PAF (paroxysmal atrial fibrillation): Plan: Hold Flecainide with hyponatremia- send Flecainide level- send out so likely won't assist - higher level may either cause or be a cause of hyponatremia will transition diltiazem to metoprolol and add afterload reduction if tolerated (7) LVH (left ventricular hypertrophy): Plan: As above Admission and Anticipated Discharge Date Admission Date: September 30, 2021 Subjective pt continues to improve, she continues to improve in her mentation will have PT/OT evalation Review of Systems Review of Systems: Mild distress and fatigue no headache, no visual changes no speech or swallowing issues no chest pain, pressure or palpitations no shortness of breath at rest did not walk in room, cough or wheezes no abdominal pain, nausea or vomiting, diarrhea or constipation no dysuria, hematuria or frequency no focal joint pain does have some minor le swelling no back pain, CVA tenderness or radicular pain bruising to right dorsal hand and wrist no focal signs of weakness or numbness or altered sensation no complaints of anxiety or depression.. Physical Exam Physical Exam: The patient appeared well nourished and normally developed. Vital signs as documented. Head exam is normocephalic atraumatic Neck is with JVD, no thyromegaly, or carotid bruits. Lungs has some basilar rales. Cardiac exam, Rhythm is regular.. ROGELIO Abdominal exam reveals normal bowel sounds, soft non tender, no masses Extremities are trace edematous and both pedal pulses are present Neurologic exam is alert and oriented, no focal loss of strength or sensation Skin is with bruises to the right wrist and hand Psychologically is without concerns for anxiety or depression.. Results & Data Results & Data ([facility]) Vital Signs (Past 12 Hours) Vital Signs Temp Pulse Pulse Resp BP BP Pulse Ox 10/03/21 11:07 92 H 20 128/78 92 10/03/21 07:41 90 10/03/21 06:44 97.7 F 86 20 120/79 97 10/03/21 04:49 97.5 F L 93 H 20 124/70 98 PG Care Time/CCT Total # of Minutes Spent Total Time Spent with Patient: Total time spent is greater than 50% in coordination of care (as documented) at patient's floor/unit and/or counseling patient: Coding Level of Care Code 58702 Subseq Hosp Care Lvl 3 Diagnoses Hyponatremia E87.1 Bilateral edema of lower extremity R60.0 Chronic kidney disease, stage III (moderate) N18.3 GERD without esophagitis K21.9 Hypertension I10 PAF (paroxysmal atrial fibrillation) I48.0 LVH (left ventricular hypertrophy) I51.7
[2021-10-03] MEDS: THIAMINE HCL 100 MG TAB PO SCH (16:50)
[2021-10-03] MEDS: BEER 1 CAN PO SCH ×2 (17:57→20:55)
[2021-10-04] MEDS ORDERED: DICLOFENAC SOD 1% GEL 100 GM TUBE EXT SCH (09:00)
[2021-10-04] MEDS ORDERED: FUROSEMIDE 40 MG TAB PO SCH (09:00)
[2021-10-04] MEDS: METOPROLOL SUCC 25MG EXT REL TAB PO SCH (09:03)
[2021-10-04] MEDS: THIAMINE HCL 100 MG TAB PO SCH (09:03)
[2021-10-04] MEDS: APIXABAN 5 MG TABLET PO SCH (09:04)
[2021-10-04] MEDS: PANTOprazole 40 MG TAB PO SCH (09:04)
--- NOTE | 2021-10-04 13:01 | Discharge Summary ---
Date of Service October 04, 2021 Admission HPI Per Admitting Provider [id number] YOF with medical history of: Dyspnea, HTN, LVH, HFpEF, PAF (on Eliquis), HLD, knee pain, cellulitis, UTI, stubbed toe (was placed on prednisone 09/22), falls with periprosthetic hip frx, right tib fib frx and was nonweightbearing (08/24-09/24). Patient comes to the EMD today for complaints of increase dyspnea, and inability to urinate and continual leg swelling. Patient has been following with cardiology and her PCP for myriad of problems that include UTI that was pansensitive E.COLI completed abx treatment. She has also been treated for a lower leg cellulitis of her left leg with clindamycin and Augmentin. From a cardiology perspective she was having increase in lower extremity edema and had her Lasix dose increased at the beginning of September to 40 mg daily and then has been back to her 20mg dose every other day. This has been ongoing with follow up with PCP on 09/26/21 with increase in her Lasix to 40mg in am and 20mg Lasix at night, as well as recommended compression stockings. Today she feels that she is not able to urinate but her bladder fills full. She states that she is taking her medications as prescribed, but when asked how states that 20mg Lasix every other day. She states that she eats toast and coffee for breakfast and yesterday had hotdogs and beans for dinner. Her BMP was notable for a decrease in her NA level to 117 with chloride level of 80 as well as serum osmo of 246. Her renal function is normal. Her BNP is elevated and mild HScTNI of 15. Overall she is edematous from her mid shins to her sacrum. Her bladder is palpably distended with feeling of urge to void. Overall she is retaining fluid and to complicate her fluid status had initiation of steroids for her toe on 09/22. Her left leg wound appears to be healing. Will place Loera, free water restrict, Lasix already given in EMD. Will obtain ECHO in am. Further workup pending. COVID test on admission is: NEGATIVE Principal Diagnosis hyponatremia acute on chronic systolic heart failure Discharge Exam The patient appeared stable Vital signs as documented. Lungs are clear to auscultation and appear unlabored Cardiac exam, Rhythm is regular.. No murmurs, rubs or gallops. Abdominal exam reveals normal bowel sounds, soft non tender, no masses Extremities are nonedematous and both pedal pulses are normal. Neurologic exam is alert and oriented, no focal loss of strength or sensation Skin is without bruises or rashes Psychologically is without concerns for anxiety or depression. Discharge Data Allergies Allergy/AdvReac Type Severity Reaction Status Date / Time No Known Allergies Allergy Verified 09/30/21 17:39 Consultations 09/30/21 16:44 ED Decision to Admit Stat Ordered Studies 09/30/21 14:51 CT angio chest PE protocol Stat 09/30/21 17:57 CT head/brain wo con Routine Hospital Course (1) Hyponatremia: Hyponatremia of 117 - hypervolemic hyponatremia- Edema, BNP 1631, hypoosmolar with serum osmo 246 - CT non con of the head with previous falls - eval for any intracranial process - TSH normal - Random Cortisol - 4- however is on Prednisone at home- hold on discharge responded to fluid restiction and lasix, educated on not drinking water in excess new found systolic cardiac reduction, resume lasix at dc - Echo 10/01 shows reduced systolic funtion, to 45% with mild global hypokinesis to LV, previously LV function was normal - restart fleconide at dc, pending outpt level to be seen by cardiology Dr Monterroso in follow up, messaged unit sec to make appointment (2) Bilateral edema of lower extremity: resolved - Multifactorial, certainly influenced by acute on chronic systolic heart failure may consider heart failure clinic enrollment (3) Chronic kidney disease, stage III (moderate): Stable daily lasix (4) GERD without esophagitis: Continue PPI- Omeprazole (5) Hypertension: Controlled (6) PAF (paroxysmal atrial fibrillation): resume fleconide, send Flecainide level did transition diltiazem to metoprolol andconsider to add afterload reduction once assesed by cardiolgy as outpt (7) LVH (left ventricular hypertrophy): As above Total Time Total Time Spent Total Time Spent (In Minutes): It required greater than 30 minutes to prepare this patient for discharge Discharge Plan Discharge Items Patient Disposition: Home - Home Health Services Reason For Visit: SOB,HYPONATREMIA,HYPERVOLEMIA Discharge Diagnosis: hyponatremia acute on chronic systolic heart failure Activity: Resume your previous activity Non-emergency contact: Primary Care Provider and Account Support Associate Call non-emergency contact if: your symptoms worsen and you have a fever Follow-up/Referrals: Kimber Prater, [Primary Care Provider] - Diet: Heart Healthy [facility] Attending Provider Instructions: You were admitted with low blood sodium level. This is more of a function of too much water rather than too little sodium. The excess water can dilute your sodium and make you feel poorly. Because of this you should not drink water in excess. He should drink when you are thirsty but consider drinking other agents that contain some minerals such as Gatorade Powerade ice tea etc. During your stay testing did reveal you had a change in your heart function. Subsequently we have changed her medications. Is recommended you follow-up with Dr. Monterroso. To be recommended that you have a low-salt diet. Please adhere to the instructions below to help manage your body fluid Call 911 and go to the Emergency Room if: * You have tightness or pain in your chest that does not go away with rest or Nitroglycerin * You are very short of breath even with rest Call your doctor if any of the following symptoms or problems start or get worse: * Shortness of breath or difficulty breathing * Wake up at night short of breath * Chest pain * Cough * Swelling of your hands, fee, or legs * More fatigued or tired with your normal activity * Palpitations - sudden fast heart beats WEIGHT * Weigh yourself every morning after using the bathroom. * Use the same scale. * Wear the same amount of clothing. * Write your weight down on your chart. * Call your doctor if you gain more than 2-3 pounds in 1-2 days. MEDICATIONS * Use this discharge instruction sheet for instructions. * Take your medications at the time your doctor ordered. * Do not skip a dose of your medicines. * If you miss a dose of medicine, take as soon as possible, but DO NOT DOUBLE A DOSE. * Read your medicine information when you get home. * Know all of the side effects of your medicine. * Call your doctor's office if you have any side effects. * Be sure all of your doctors know what medicine and herbs you take (including cold, flu, and herbal medicine). * Pain Medicine: If you do not get relief from your pain, please call your doctor for help. Take the following with you to your follow-up doctor appointments: * Weight Chart * Medication List * List of questions Do not drink excessive alcohol, beer or wine. Pending Studies at Discharge: No Stand-Alone Forms: My [facility], Smoking Cessation Medications and DC Order Prescriptions: New metoprolol succinate 25 mg Tablet Extended Release 24 Hr 25 mg PO QAM Qty: 30 RF: 4 Continued duloxetine 60 mg capsule,delayed release(DR/EC) 60 mg PO QAM Qty: 90 RF: 1 flecainide 100 mg tablet 100 mg PO Q12H Qty: 180 RF: 1 ferrous sulfate 325 mg (65 mg iron) tablet,delayed release (DR/EC) 325 mg PO DAILY Qty: 30 RF: 5 magnesium oxide 400 mg (241.3 mg magnesium) tablet 400 mg PO BID Qty: 60 RF: 5 PreserVision AREDS [id number],[id number] [id number] capsule 1 cap PO BID RF: 0 diphenhydramine-acetaminophen [Tylenol PM Extra Strength] 25-500 mg tablet 1 tab PO HS PRN (Reason: Pain) RF: 0 acetaminophen [Tylenol Extra Strength] 500 mg tablet 500 mg PO Q6H PRN (Reason: Pain) RF: 0 tramadol 50 mg tablet 50 mg PO Q4H PRN (Reason: moderate-severe knee pain) Qty: 30 RF: 0 omeprazole 40 mg capsule,delayed release(DR/EC) 40 mg PO QAM Qty: 90 RF: 1 furosemide 20 mg tablet See Rx Instructions .ROUTE .COMPLEX Qty: 90 RF: 1 Centrum Silver 0.4-300-250 mg-mcg-mcg tablet 1 tab PO DAILY RF: 0 Eliquis 5 mg tablet 5 mg PO BID Qty: 60 RF: 5 Hold Instructions: Home Medication placed on hold at Doctor's office Discontinued diltiazem HCl 120 mg capsule,extended release 24 hr 120 mg PO QAM Qty: 90 RF: 1 miscellaneous medical supply Kit 1 ea miscellaneous DAILY Qty: 1 RF: 0 prednisone 20 mg tablet 40 mg PO DAILY 5 Days Qty: 10 RF: 0 clindamycin HCl 300 mg capsule 300 mg PO Q8H 7 Days Qty: 21 RF: 0 Discharge Orders: Discharge Order (Routine); Ordered 10/04/21 Ordered By: Juan R Bazzi Admission Data Admit Date/Time: 09/30/21 17:20 Attending Provider: Juan R Bazzi Admit Provider: Peyman Bass Primary Care Provider: Kimber Prater Other Providers: Peyman Bass Other Interventions: Discharge Summary Assessment (RN) Last Done: 10/04/21 11:28 Coding Level of Care Code D/C DAY MANAGEMENT >30 MINS Diagnoses Hyponatremia E87.1 Bilateral edema of lower extremity R60.0 Chronic kidney disease, stage III (moderate) N18.3 GERD without esophagitis K21.9 Hypertension I10 PAF (paroxysmal atrial fibrillation) I48.0 LVH (left ventricular hypertrophy) I51.7
== END 2021-10-04 13:49 | disposition home health service (06) | DRG 640 ==
LOC: ED 13:14 → SUATTDRO 17:20 → 2N 17:20

== ENCOUNTER 2021-11-02 21:05 | Inpatient (IN) ==
--- NOTE | 2021-11-02 21:27 | Emergency Department Note ---
Impression & Plan Electrolyte abnormality, Pleural effusion, bilateral, Ambulatory dysfunction, Recurrent falls, UTI (urinary tract infection) ED Provider Note NAME: WARREN GUZMAN AGE: 81 SEX: F : 1940 ARRIVES VIA: Ambulance INFORMANT: [Patient][, ] ED PROVIDER(S): [Rivera Burdick MD] Chief Complaint: Weakness, Rrecurrent falls HPI: Patient presents due to concern for weakness and recurrence of falls. Patient does live by her self but her family does check in on her from time to time. The patient did have difficulty getting up from her chair earlier today reportedly had a fall but did not strike her head and denies any LOC. The patient does take blood thinning medication. Patient denies any fevers chills chest pains or shortness of breath. Family reported to EMS that they are trying to obtain placement or rehab but this is currently waiting for prior authorization from insurance. Patient also reports the possibility of urinary symptoms. Patient denies any abdominal pain nausea vomiting. Patient believe that her sleep and appetite of been okay. Patient has been compliant with her medications. ROS: See HPI for pertinent positives and negatives. A total of 10 systems were reviewed and otherwise negative. Past medical history: See below Surgical history: See below Social history: See below Physical Exam: GENERAL: NAD, [wearing a mask,] non-toxic. EYE EXAM: Normal conjunctiva. PERRL, no anisocoria and EOM's grossly intact w/o pain. NECK: Supple, no nuchal rigidity, no adenopathy, non-tender. No signs of meningismus. FROM of the neck with good chin to chest and neck extension. No st ridor. LUNGS: Clear to auscultation. Normal chest wall mechanics. HEART: NSR, no MRG. ABDOMEN: Abdomen soft, non-tender, normo-active bowel sounds, no masses, no rebound or guarding. BACK: No CVA TTP. SKIN: No rashes and no bruising. UPPER EXTREMITIES: Upper extremities are grossly normal. LOWER EXTREMITIES: Grossly normal, no edema. NEURO EXAM: A&O x3, cranial nerves II-XII grossly intact, normal speech, moves all 4 extremities. Differential diagnoses: Infection, dehydration, metabolic abnormality, hypo/hyperglycemia, electrolyte disturbance, anemia, hypoxia, cardiac sources, intracerebral event, toxicologic, neurologic, as well as other pathologies. Course: Patient was seen and evaluated the bedside. Full history physical exam was performed. EKG interpreted by me QRS, rate of 78, left axis deviation. No obvious ST elevations. Imaging Studies: See Below Cardiac monitoring: An order was placed for continuous cardiac monitoring. The monitor shows a rate of 72 with sinus rhythm. MDM: Patient presented due to concern for weakness as well as recurrence of falls and possible UTI related symptoms. Blood work is obtained along with urinalysis and CT of the head. Patient's blood work showed a normal white count and H&H. The patient's platelet count was unremarkable. Patient's kidney function was unremarkable with mild hyperkalemia at 5.7 with a sodium 129. Patient does have mild transaminitis. Patient's urinalysis does appear to be grossly affected. COVID-negative. Patient was ordered antibiotics. Patient CT of the head is negative. I did speak the on-call hospitalist and the patient was admitted to the medicine service patient was admitted by Dr. Mack. Past Med/Surg History Medical History Anemia Anxiety Chronic anticoagulation Chronic kidney disease, stage III (moderate) Closed hip fracture Cystic thyroid nodule Depression Diaphragmatic hernia Diastolic dysfunction Disc degeneration, lumbar Diverticulosis Fall Fracture of greater trochanter of right femur Fracture, tibia and fibula, proximal GERD without esophagitis Grief Loss of spouse August 2018 Hematoma of right lower extremity Hypercholesterolemia Hypertension Lumbar spinal stenosis LVH (left ventricular hypertrophy) Macular degeneration Mitral regurgitation MODERATE Osteoarthritis Osteoporosis PAF (paroxysmal atrial fibrillation) Rheumatoid arthritis Right thyroid nodule Scoliosis Venous insufficiency of both lower extremities Vitamin D deficiency Surgical History H/O bilateral oophorectomy B/L SALPINGOOPHORECTOMY= 04/12/17= GRADE VIEW 2, MAC 3, ETT 7.5 AT [facility] History of adenoidectomy History of cataract surgery RIGHT/LEFT History of hysterectomy (1988) History of lobectomy of thyroid History of tonsillectomy History of tooth extraction History of total hip arthroplasty RIGHT Knee arthropathy w/ medial meniscus repair in 10/2017 S/P ORIF (open reduction internal fixation) fracture (~03/2021) Left Hip S/P thyroid surgery right thyroid lobectomy Dr. Thornton 01/06/19 Status post arthroscopic partial medial meniscectomy (11/02/17) R knee Family History Father Coronary heart disease Colorectal cancer Kidney disease Lung disease Mother Coronary heart disease Myocardial infarction Gallbladder disease Sister Diabetes Colorectal cancer Denies family history of Ovarian cancer Prostate cancer Breast cancer Social History Smoking Status: Never smoker Second Hand Exposure: Yes; Hx Alcohol Use: Yes Alcohol type: beer Alcohol Intake Frequency: 4 or More x per/Week Hx Substance Use: No Preferred Language: French Communication Ability: Effective Visual Impairment: No Limitations Hearing Ability: Use of Hearing Aid Pipelines Laborer Required: No Beliefs That Will Affect Care: None marital status: / marital status details: passed August 2018 Current Living Situation: Family Current Living Situation Comment: with daughter 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 How many Children do You have: 2 Feels Safe at Home: Yes Childhood Exposure to Second-Hand Smoke: No Diet Comment: regular caffeine: Yes (1/2 cup a day) during the past year weight has: decreased > 10 lbs Dental Care, Regularly: Yes Physical Activity Frequency: Daily Seatbelt Use: always Sunscreen Use: No Assistive Devices: Bedside Commode, Walker and Wheelchair Allergies Allergies Allergy/AdvReac Type Severity Reaction Status Date / Time No Known Allergies Allergy Verified 10/30/21 15:03 Home Meds Home Medications Medication Instructions Recorded Confirmed kyrmmckm-uwl-[id number] acid 0.4 1 tab PO DAILY 09/10/20 11/03/21 mg-lycopene 300 mcg-lutein 250 mcg tablet (Centrum Silver) acetaminophen 500 mg tablet 500 mg PO Q6H PRN Pain 08/06/21 11/03/21 (Tylenol Extra Strength) diphenhydramine 25 1 tab PO HS PRN Pain 08/06/21 11/03/21 mg-acetaminophen 500 mg tablet (Tylenol PM Extra Strength) vitamins A,C,Q-ryjp-cmtyqq 14,320 1 cap PO BID 08/06/21 11/03/21 unit-226 mg-200 unit capsule (PreserVision AREDS) Previous Rx's Medication Instructions Recorded flecainide 100 mg tablet 100 mg PO Q12H #180 tabs 06/26/21 ferrous sulfate 325 mg (65 mg 325 mg PO DAILY #30 tabs 07/21/21 iron) tablet,delayed release magnesium oxide 400 mg (241.3 mg 400 mg PO BID #60 tabs 07/21/21 magnesium) tablet omeprazole 40 mg capsule,delayed 40 mg PO QAM #90 caps 08/26/21 release apixaban 5 mg tablet (Eliquis) 5 mg PO BID #60 tabs 09/05/21 metoprolol succinate 25 mg 25 mg PO QAM #30 tabs 10/04/21 tablet,extended release 24 hr clindamycin HCl 300 mg capsule 300 mg PO Q8H 7 days #21 caps 10/14/21 potassium chloride 20 mEq 20 meq PO DAILY #30 tabs 10/14/21 tablet,extended release furosemide 20 mg tablet See Rx Instructions .Route 10/27/21 .COMPLEX 90 days #270 tabs ciprofloxacin HCl 500 mg tablet 500 mg PO BID #10 tabs 10/30/21 duloxetine 60 mg capsule,delayed 60 mg PO QAM #90 caps 10/31/21 release tramadol 50 mg tablet 50 mg PO Q4H PRN moderate-severe 10/31/21 knee pain #30 tabs Results & Data (ED) Vital Signs Vital Signs - 24 hr 11/02/21 21:14 Temperature 36.5 C Temperature Source Oral Respiratory Rate 14 Respiratory Effort / Characteristics Non-Labored Respiratory Depth Normal Pulse Oximetry 95 Oxygen Delivery Method Room Air Sepsis Recent Fever Within 48 Hours No Sepsis New/Unexplained Change in Mental Status N/A Sepsis Action Taken by Nursing No Action Required Home Medications Current Medication List: was personally reviewed by me Laboratory Data Attestation: I reviewed the patient's lab results. Result diagrams: 11/05/21 09:37 11/05/21 09:35 Lab Results 11/02/21 11/02/21 11/02/21 Range/Units 21:00 21:00 21:00 WBC 7.42 (4.8-10.8) K/ul RBC 4.05 (3.93-5.22) M/uL Hgb 13.9 (12.0-16.0) g/dl Hct 42.3 (34.1-44.9) % MCV 104.4 H (80.0-100.0) fL MCH 34.3 H (25.0-34.0) pg MCHC 32.9 (32.0-36.0) g/dL RDW Std Deviation 65.6 H (36.4-46.3) fL RDW Coeff of Tyra 16.9 H (11.5-14.5) % Plt Count 368 (130-400) K/uL MPV 9.7 (9.4-12.3) fL Immature Gran % (Auto) 0.4 % Neut % (Auto) 78.6 % Lymph % (Auto) 12.5 % [place] % (Auto) 8.1 % Eos % (Auto) 0.1 % Baso % (Auto) 0.3 % Neut # (Auto) 5.83 (1.4-6.5) K/uL Lymph # (Auto) 0.93 L (1.2-3.4) K/uL [place] # (Auto) 0.60 (0.24-0.82) K/uL Eos # (Auto) 0.01 (0-0.50) K/uL Baso # (Auto) 0.02 (0-0.2) K/uL Immature Gran # (Auto) 0.03 H (0.00-0.02) K/uL Sodium 129 L (136-145) mmol/L Potassium 5.7 H (3.5-5.1) mmol/L Chloride 93 L (98-107) mmol/L Carbon Dioxide 29 (21-32) mmol/L Anion Gap 7 (3-11) BUN 18 (6-23) mg/dl Creatinine 0.90 (0.6-1.2) mg/dl Est Cr Clr Drug Dosing Not Reportable Est GFR ( Amer) 69.0 ml/min Est GFR (Non-Af Amer) 59.5 ml/min BUN/Creatinine Ratio 20.0 (10-20) Glucose 121 H (70-99(Fasting)) mg/dl Calcium 9.0 (8.5-10.1) mg/dl Magnesium 2.1 (1.7-2.4) mg/dl Total Bilirubin 1.3 H (0.2-1.0) mg/dl AST 33 (13-39) U/L ALT 89 H (7-52) U/L Alkaline Phosphatase 180 H (34-104) U/L Total Protein 6.2 (6.0-8.3) gm/dl Albumin 3.5 (3.4-5.0) gm/dl Globulin 2.7 (2.5-4.0) gm/dl Albumin/Globulin Ratio 1.3 (0.9-2) TSH 6.298 H (0.300-4.500) uIu/ml Free T4 1.22 (0.61-1.60) ng/dl Urine Color Urine Appearance (Clear) Urine pH (4.5-7.5) Ur Specific [place] (1.000-1.030) Urine Protein (Negative) Urine Glucose (UA) (Negative) Urine Ketones (Negative) Urine Blood (Negative) Urine Nitrite (Negative) Urine Bilirubin (Negative) Urine Urobilinogen (Negative) Ur Leukocyte Esterase (Negative) Urine WBC (Auto) (0-5) /hpf Urine RBC (Auto) (0-4) /hpf U Hyaline Cast (Auto) (0-5) /lpf U Epithel Cells (Auto) (0-5) /lpf Urine Bacteria (Auto) (Negative) SARS-CoV-2, RNA, NAAT (NEGATIVE) 11/02/21 11/02/21 Range/Units 21:58 22:23 WBC (4.8-10.8) K/ul RBC (3.93-5.22) M/uL Hgb (12.0-16.0) g/dl Hct (34.1-44.9) % MCV (80.0-100.0) fL MCH (25.0-34.0) pg MCHC (32.0-36.0) g/dL RDW Std Deviation (36.4-46.3) fL RDW Coeff of Tyra (11.5-14.5) % Plt Count (130-400) K/uL MPV (9.4-12.3) fL Immature Gran % (Auto) % Neut % (Auto) % Lymph % (Auto) % [place] % (Auto) % Eos % (Auto) % Baso % (Auto) % Neut # (Auto) (1.4-6.5) K/uL Lymph # (Auto) (1.2-3.4) K/uL [place] # (Auto) (0.24-0.82) K/uL Eos # (Auto) (0-0.50) K/uL Baso # (Auto) (0-0.2) K/uL Immature Gran # (Auto) (0.00-0.02) K/uL Sodium (136-145) mmol/L Potassium (3.5-5.1) mmol/L Chloride (98-107) mmol/L Carbon Dioxide (21-32) mmol/L Anion Gap (3-11) BUN (6-23) mg/dl Creatinine (0.6-1.2) mg/dl Est Cr Clr Drug Dosing Est GFR ( Amer) ml/min Est GFR (Non-Af Amer) ml/min BUN/Creatinine Ratio (10-20) Glucose (70-99(Fasting)) mg/dl Calcium (8.5-10.1) mg/dl Magnesium (1.7-2.4) mg/dl Total Bilirubin (0.2-1.0) mg/dl AST (13-39) U/L ALT (7-52) U/L Alkaline Phosphatase (34-104) U/L Total Protein (6.0-8.3) gm/dl Albumin (3.4-5.0) gm/dl Globulin (2.5-4.0) gm/dl Albumin/Globulin Ratio (0.9-2) TSH (0.300-4.500) uIu/ml Free T4 (0.61-1.60) ng/dl Urine Color Dark Yellow Urine Appearance Cloudy A (Clear) Urine pH 6.5 (4.5-7.5) Ur Specific [place] 1.020 (1.000-1.030) Urine Protein 1+ H (Negative) Urine Glucose (UA) Negative (Negative) Urine Ketones Trace H (Negative) Urine Blood 1+ H (Negative) Urine Nitrite Negative (Negative) Urine Bilirubin Negative (Negative) Urine Urobilinogen Negative (Negative) Ur Leukocyte Esterase 2+ H (Negative) Urine WBC (Auto) >30 H (0-5) /hpf Urine RBC (Auto) 5-10 H (0-4) /hpf U Hyaline Cast (Auto) 1-5 (0-5) /lpf U Epithel Cells (Auto) 0-5 (0-5) /lpf Urine Bacteria (Auto) 4+ H (Negative) SARS-CoV-2, RNA, NAAT NEGATIVE (NEGATIVE) Administered Medications Acetaminophen (Acetaminophen 325 Mg Tab) 650 mg PO Q4H PRN PRN Reason: pain/fever Stop: 12/03/21 02:19 Last Admin: 11/03/21 22:01 Dose: 650 mg Documented By: MARQUEZ Apixaban (Apixaban 5 Mg Tablet) 5 mg PO BID JULIANE Stop: 12/03/21 08:59 Last Admin: 11/05/21 09:28 Dose: 5 mg Documented By: Admin: 11/04/21 19:28 Dose: 5 mg Documented By: FRANCISCO JAVIER Admin: 11/04/21 08:11 Dose: 5 mg Documented By: Admin: 11/03/21 21:59 Dose: 5 mg Documented By: Admin: 11/03/21 08:39 Dose: 5 mg Documented By: GALILEO Duloxetine HCl (Duloxetine Hcl 60 Mg Cap) 60 mg PO QAM JULIANE Stop: 12/03/21 08:59 Last Admin: 11/05/21 09:28 Dose: 60 mg Documented By: Admin: 11/04/21 08:11 Dose: 60 mg Documented By: Admin: 11/03/21 08:42 Dose: 60 mg Documented By: GALILEO Flecainide Acetate (Flecainide Acetate 100 Mg Tablet) 100 mg PO Q12H JULIANE Stop: 12/03/21 08:59 Last Admin: 11/05/21 09:29 Dose: 100 mg Documented By: Admin: 11/04/21 19:29 Dose: 100 mg Documented By: FRANCISCO JAVIER Admin: 11/04/21 08:11 Dose: 100 mg Documented By: Admin: 11/03/21 21:59 Dose: 100 mg Documented By: Admin: 11/03/21 08:43 Dose: 100 mg Documented By: GALILEO Furosemide (Furosemide 20 Mg Tab) 20 mg PO Q24H JULIANE Stop: 12/03/21 13:59 Last Admin: 11/04/21 14:00 Dose: 20 mg Documented By: Admin: 11/03/21 14:58 Dose: 20 mg Documented By: GALILEO Furosemide (Furosemide 40 Mg Tab) 40 mg PO DAILY JULIANE Stop: 12/03/21 08:59 Last Admin: 11/05/21 09:30 Dose: 40 mg Documented By: Admin: 11/04/21 08:11 Dose: 40 mg Documented By: Admin: 11/03/21 08:43 Dose: 40 mg Documented By: GALILEO Ertapenem 1,000 mg/ Syringe 10 mls @ 2 mls/min IV Q24H [facility]; Protocol Stop: 11/09/21 14:59 Last Admin: 11/04/21 15:25 Dose: 2 mls/min Documented By: LIZBET Magnesium Oxide (Magnesium Oxide 400 Mg Tab) 400 mg PO BID JULIANE Stop: 12/03/21 08:59 Last Admin: 11/05/21 09:32 Dose: 400 mg Documented By: Admin: 11/04/21 19:29 Dose: 400 mg Documented By: FRANCISOC JAVIER Admin: 11/04/21 08:11 Dose: 400 mg Documented By: Admin: 11/03/21 22:00 Dose: 400 mg Documented By: Admin: 11/03/21 08:43 Dose: 400 mg Documented By: GALILEO Metoprolol Succinate (Metoprolol Succ 25mg Ext Rel Tab) [facility] [place]: 12/03/21 08:59 Last Admin: 11/05/21 09:32 Dose: 25 mg Documented By: Admin: 11/04/21 08:11 Dose: 25 mg Documented By: Admin: 11/03/21 08:44 Dose: 25 mg Documented By: GALILEO Pantoprazole Sodium (Pantoprazole 40 Mg Tab) 40 mg PO [facility] Stop: 12/03/21 08:59 Last Admin: 11/05/21 09:32 Dose: 40 mg Documented By: Admin: 11/04/21 08:11 Dose: 40 mg Documented By: Admin: 11/03/21 08:44 Dose: 40 mg Documented By: GALILEO Discontinued Medications Furosemide (Furosemide Inj 20 Mg/2 Ml Vial) 10 mg IV ONE ONE Stop: 11/03/21 02:21 Last Admin: 11/03/21 03:14 Dose: 10 mg Documented By: MARQUEZ Sodium Chloride (Nss 1000ml) 1,000 mls @ 999 mls/hr IV .Q1H1M JULIANE Stop: 11/02/21 23:00 Last Infusion: 11/02/21 23:52 Dose: 0 mls/hr Documented By: Admin: 11/02/21 22:54 Dose: 999 mls/hr Documented By: MICHAELA Ceftriaxone Sodium (Rocephin) 2,000 mg in 70 mls @ 140 mls/hr IV NOW STA Stop: 11/02/21 23:13 Last Infusion: 11/02/21 23:52 Dose: 0 mls/hr Documented By: Admin: 11/02/21 22:54 Dose: 140 mls/hr Documented By: MICHAELA Ceftriaxone Sodium 1,000 mg/ (Dextrose) 60 mls @ 100 mls/hr IV Q24H JULIANE; Protocol Stop: 11/08/21 21:59 Last Infusion: 11/03/21 22:40 Dose: 0 mls/hr Documented By: Admin: 11/03/21 22:00 Dose: 100 mls/hr Documented By: MARQUEZ Sodium Chloride (Nss 1000ml) 1,000 mls @ 80 mls/hr IV .[id number] JULIANE Stop: 11/03/21 14:49 Last Infusion: 11/03/21 15:19 Dose: 0 mls/hr Documented By: Admin: 11/03/21 02:32 Dose: 80 mls/hr Documented By: MARQUEZ Imaging Data Radiologist's Impression: Head CT 11/02/21 21:49 CT SCAN OF THE BRAIN WITHOUT IV CONTRAST CLINICAL HISTORY: Falls. COMPARISON STUDY: CT of the brain dated 09/30/2021. TECHNIQUE: Unenhanced axial CT scan of the brain is performed from the vertex to the skull base. A dose lowering technique was utilized adhering to the p rinciples of ALARA. CT DOSE: 1257.71 mGy.cm FINDINGS: Brain parenchyma: There is age-related involutional change noting advanced confluent subcortical and periventricular microangiopathic disease. There is no hemorrhage, mass effect, or evidence of acute territorial ischemia by CT criteria. Zayas-white matter differentiation is preserved. No extra-axial fluid collection is seen. Ventricles, sulci, cisterns: Prominent secondary to involutional change. Intracranial vasculature: There is atherosclerotic calcification of the cavernous carotid and vertebral arteries. Calvarium: The skeletal structures are osteopenic. No depressed calvarial fracture is identified. Sinuses and mastoids: The paranasal sinuses are clear. The mastoid air cells are well pneumatized. Orbits: The bony orbits are grossly intact. There are bilateral ocular lens implants. IMPRESSION: There is no hemorrhage, mass effect, or evidence of acute territorial ischemia by CT criteria. ACT 112: Negative or not required by law. Electronically signed by: Semaj Luong M.D. 11/03/2021 7:06 AM Chest X-Ray 11/02/21 21:50 XR chest 1V portable HISTORY: weakness COMPARISON: Chest 09/22/2021. FINDINGS: No pneumothorax. Old, healed bilateral rib fractures again noted. The heart is enlarged. Small to moderate right and small left pleural effusions with bibasilar densities have slightly improved. Mild pulmonary vascular congestion has also improved. A large hiatus hernia is again noted. IMPRESSION: Interval improvement in the pulmonary vascular congestion and bilateral pleural effusions/opacities. ACT 112: Negative or not required by law. Electronically signed by: Erwin Ha M.D. 11/03/2021 8:10 AM Discharge Plan Visit Data Chief Complaint: Urinary Symptoms Stated Complaint: UTI, Confusion ED Provider: Rivera Burdick Discharge Problem: Electrolyte abnormality, Pleural effusion, bilateral, Ambulatory dysfunction, Recurrent falls, UTI (urinary tract infection) Patient Disposition: Admitted As Inpatient Discharge Instructions Interventions: ED Discharge Assessment Last Done: 11/03/21 01:46
[2021-11-02 21:59] LABS: Basophils # (auto) 0.02 K/uL (0-0.2); Basophils % (auto) 0.3 %; Eosinophils # (auto) 0.01 K/uL (0-0.50); Eosinophils % (auto) 0.1 %; Hematocrit (blood only) 42.3 % (34.1-44.9); Hemoglobin 13.9 g/dl (12.0-16.0); Immature Granulocytes # (auto) 0.03 K/uL (0.00-0.02); Immature Granulocytes % (auto) 0.4 %; Lymphocytes # (auto) 0.93 K/uL (1.2-3.4); Lymphocytes % (auto) 12.5 %; Mean Corpuscular Hemoglobin 34.3 pg (25.0-34.0); Mean Corpuscular Hgb Conc 32.9 g/dL (32.0-36.0); Mean Corpuscular Volume 104.4 fL (80.0-100.0); Mean Platelet Volume 9.7 fL (9.4-12.3); Monocytes % (auto) 8.1 %; Neutrophils # (auto) 5.83 K/uL (1.4-6.5); Neutrophils % (auto) 78.6 %; Platelet Count 368 K/uL (130-400); RDW Coefficient of Variation 16.9 % (11.5-14.5); RDW Standard Deviation 65.6 fL (36.4-46.3); Red Blood Count 4.05 M/uL (3.93-5.22); White Blood Count 7.42 K/ul (4.8-10.8)
[2021-11-02] MEDS ORDERED: SODIUM CHLORIDE 0.9% 1000ML 1,000 ML IV SCH (22:00)
[2021-11-02 22:16] LABS: Alanine Aminotransferase 89 U/L (7-52); Albumin Globulin Ratio 1.3 (0.9-2); Albumin Level 3.5 gm/dl (3.4-5.0); Alkaline Phosphatase 180 U/L (34-104); Anion Gap 7 (3-11); Aspartate Aminotransferase 33 U/L (13-39); Bilirubin,Total 1.3 mg/dl (0.2-1.0); Blood Urea Nitrogen 18 mg/dl (6-23); Carbon Dioxide 29 mmol/L (21-32); Chloride 93 mmol/L (98-107); Est GFR (Non-African American) 59.5 ml/min; Globulin 2.7 gm/dl (2.5-4.0); Glucose 121 mg/dl (70-99(Fasting)); Magnesium 2.1 mg/dl (1.7-2.4); Potassium 5.7 mmol/L (3.5-5.1); Sodium 129 mmol/L (136-145); Total Protein 6.2 gm/dl (6.0-8.3)
[2021-11-02 22:27] LABS: Thyroid Stimulating Hormone 6.298 uIu/ml (0.300-4.500)
[2021-11-02 22:39] LABS: Appearance Urine Cloudy (Clear); Bacteria Urine Automated 4+ (Negative); Bilirubin Urine Negative (Negative); Blood Urine 1+ (Negative); Color Urine Dark Yellow; Epithelial Cell Urine Auto 0-5 /lpf (0-5); Glucose Urine UA Negative (Negative); Ketones Urine Trace (Negative); Leukocyte Esterase Urine 2+ (Negative); Nitrite Urine Negative (Negative); Protein Urine 1+ (Negative); Urobilinogen Urine Negative (Negative); WBC Urine Automated >30 /hpf (0-5); pH Urine 6.5 (4.5-7.5)
[2021-11-02] MEDS ORDERED: cefTRIAXone SODIUM 2,000 MG/70 ML BAG IV STA (22:44)
[2021-11-02 23:01] LABS: T4 Free Thyroxine 1.22 ng/dl (0.61-1.60)
--- NOTE | 2021-11-03 00:14 | History & Physical Report ---
Date of Service November 03, 2021 Assessment & Plan (1) UTI (urinary tract infection): Plan: Patient afebrile, HD stable, nontoxic in appearance. -Follow cultures -Was previously on Cipro - will discontinue -Ceftriaxone 1gm IV daily (2) Electrolyte abnormality: Plan: Patient with hyponatremia with Sd=480, K=5.7. No EKG changes. Renal function intact. Chronic history of hyponatremia which has been worked up in the past. -Check serum Aldosterone -Lasix 10mg IV x 1 -Patient was on K repletion - has been discontinue -BMP in AM (3) PAF (paroxysmal atrial fibrillation): Plan: Chronic -Continue Apixaban -Continue Metoprolol -Continue Flecainide (4) Hypertension: Plan: Blood pressure stable -Continue metoprolol -Monitor (5) GERD without esophagitis: Plan: Chronic. Stable -Continue Omeprazole (6) Depression: Plan: Chronic -Continue Duloxetine F/E/N - repeat chemistry in AM to assess Na and K, continue PO Magnesium, AHA/Low Na diet as tolerated Ppx - On Apixaban Code - DNR/DNI Dispo - Admit to medical History of Present Illness Chief Complaint: UTI confusion Primary Care Provider: Kimber Prater DO Brionna Carvajal is an 81yo female presenting with UTI and confusion. Patient lives alone. She developed dysuria as well as confusion 3 days ago. She was seen by Cardiology on 10/30/21 for routine followup and was started on Ciprofloxacin 500mg po BID x 5 day course for treatment of acute uncomplicated UTI. She denies fever, chills, chest pain, palpitations, abdominal pain, nausea, vomiting, diarrhea or constipation. She has been experiencing dysuria as well as gait instability and falls. In the ER patient afebrile, HD stable, NAD. She had some confusion and possible hallucinations- asking about her friend, worrying that he could get home safely. Discussion with nursing staff revealed patient did not have any visitors. ER Course: Ceftriaxone, NSS Allergies Allergy/AdvReac Type Severity Reaction Status Date / Time No Known Allergies Allergy Verified 10/30/21 15:03 Home Medications Medication Instructions Recorded Confirmed Type rhyfnjve-muh-sornm acid 0.4 1 tab PO DAILY 09/10/20 11/03/21 History mg-lycopene 300 mcg-lutein 250 mcg tablet (Centrum Silver) flecainide 100 mg tablet 100 mg PO Q12H #180 tabs 06/26/21 11/03/21 Rx ferrous sulfate 325 mg (65 mg 325 mg PO DAILY #30 tabs 07/21/21 11/03/21 Rx iron) tablet,delayed release magnesium oxide 400 mg (241.3 mg 400 mg PO BID #60 tabs 07/21/21 11/03/21 Rx magnesium) tablet acetaminophen 500 mg tablet 500 mg PO Q6H PRN Pain 08/06/21 11/03/21 History (Tylenol Extra Strength) diphenhydramine 25 1 tab PO HS PRN Pain 08/06/21 11/03/21 History mg-acetaminophen 500 mg tablet (Tylenol PM Extra Strength) vitamins A,C,L-estt-ogdcud 14,320 1 cap PO BID 08/06/21 11/03/21 History unit-226 mg-200 unit capsule (PreserVision AREDS) omeprazole 40 mg capsule,delayed 40 mg PO QAM #90 caps 08/26/21 11/03/21 Rx release apixaban 5 mg tablet (Eliquis) 5 mg PO BID #60 tabs 09/05/21 11/03/21 Rx metoprolol succinate 25 mg 25 mg PO QAM #30 tabs 10/04/21 11/03/21 Rx tablet,extended release 24 hr clindamycin HCl 300 mg capsule 300 mg PO Q8H 7 days #21 caps 10/14/21 11/03/21 Rx potassium chloride 20 mEq 20 meq PO DAILY #30 tabs 10/14/21 11/03/21 Rx tablet,extended release furosemide 20 mg tablet See Rx Instructions .Route 10/27/21 11/03/21 Rx .COMPLEX 90 days #270 tabs ciprofloxacin HCl 500 mg tablet 500 mg PO BID #10 tabs 10/30/21 11/03/21 Rx duloxetine 60 mg capsule,delayed 60 mg PO QAM #90 caps 10/31/21 11/03/21 Rx release tramadol 50 mg tablet 50 mg PO Q4H PRN moderate-severe 10/31/21 11/03/21 Rx knee pain #30 tabs Past Med/Surg History Medical History Anemia Anxiety Chronic anticoagulation Chronic kidney disease, stage III (moderate) Closed hip fracture Cystic thyroid nodule Depression Diaphragmatic hernia Diastolic dysfunction Disc degeneration, lumbar Diverticulosis Fall Fracture of greater trochanter of right femur Fracture, tibia and fibula, proximal GERD without esophagitis Grief Loss of spouse August 2018 Hematoma of right lower extremity Hypercholesterolemia Hypertension Lumbar spinal stenosis LVH (left ventricular hypertrophy) Macular degeneration Mitral regurgitation MODERATE Osteoarthritis Osteoporosis PAF (paroxysmal atrial fibrillation) Rheumatoid arthritis Right thyroid nodule Scoliosis Venous insufficiency of both lower extremities Vitamin D deficiency Surgical History H/O bilateral oophorectomy B/L SALPINGOOPHORECTOMY= 04/12/17= GRADE VIEW 2, MAC 3, ETT [address] [facility] History of adenoidectomy History of cataract surgery RIGHT/LEFT History of hysterectomy (1988) History of lobectomy of thyroid History of tonsillectomy History of tooth extraction History of total hip arthroplasty RIGHT Knee arthropathy w/ medial meniscus repair in 10/2017 S/P ORIF (open reduction internal fixation) fracture (~03/2021) Left Hip S/P thyroid surgery right thyroid lobectomy Dr. Thornton 01/06/19 Status post arthroscopic partial medial meniscectomy (11/02/17) R knee Family History Father Coronary heart disease Colorectal cancer Kidney disease Lung disease Mother Coronary heart disease Myocardial infarction Gallbladder disease Sister Diabetes Colorectal cancer Denies family history of Ovarian cancer Prostate cancer Breast cancer Social History Smoking Status: Unknown if ever smoked Second Hand Exposure: Yes; Hx Alcohol Use: Yes Alcohol type: beer Alcohol Intake Frequency: 4 or More x per/Week Hx Substance Use: No Preferred Language: Japanese Communication Ability: Effective Visual Impairment: No Limitations Hearing Ability: Use of Hearing Aid Emergency Vehicle Driver Required: No Beliefs That Will Affect Care: None marital status: / marital status details: passed August 2018 Current Living Situation: Family Current Living Situation Comment: with daughter current occupational status: retired current occupation: [employer] How many Children do You have: 2 Feels Safe at Home: Yes Childhood Exposure to Second-Hand Smoke: No Diet Comment: regular caffeine: Yes (1/2 cup a day) during the past year weight has: decreased > 10 lbs Dental Care, Regularly: Yes Physical Activity Frequency: Daily Seatbelt Use: always Sunscreen Use: No Assistive Devices: Glasses and Walker Review of Systems Review of Systems: All systems reviewed & are unremarkable except as noted in HPI & below Physical Exam Physical Exam: General: patient resting comfortably, NAD, non-toxic in appearance, AA&O to self and location Skin: warm, dry, intact, no rashes or lesions HEENT: NC/AT, PERRL, EOMI, anicteric sclera, conjunctiva without injection, external ear normal to inspection and nontender, nares patent, moist mucus membranes, dentition intact, no oropharyngeal lesions, neck supple, trachea midline, no LAD, no thyromegaly, no JVD Heart: +S1/S2, regular, no m/r/g Lungs: equal air entry bilaterally, no rales/rhonchi/wheezes Abd: +BS, soft, NT/ND, no masses/organomegaly/ascites Ext: warm, 2+ pulses in UE/LE bilaterally, no clubbing/cyanosis or edema Neuro: nonfocal, patient AA&O x 2, speech intact, no facial droop, moving all extremities on command with equal strength 5/5 Results & Data Results & Data ([facility]) Vital Signs (Past 12 Hours) Vital Signs Temp Pulse Resp Pulse Ox O2 Del Method 11/02/21 21:52 80 14 95 11/02/21 21:14 36.5 C 14 95 Room Air Laboratory Results Laboratory Results WBC 7.42 K/ul (4.8-10.8) 11/02/21 21:00 RBC 4.05 M/uL (3.93-5.22) 11/02/21 21:00 Hgb 13.9 g/dl (12.0-16.0) 11/02/21 21:00 Hct 42.3 % (34.1-44.9) 11/02/21 21:00 MCV 104.4 fL (80.0-100.0) H 11/02/21 21:00 MCH 34.3 pg (25.0-34.0) H 11/02/21 21:00 MCHC 32.9 g/dL (32.0-36.0) 11/02/21 21:00 RDW Std Deviation 65.6 fL (36.4-46.3) H 11/02/21 21:00 RDW Coeff of Tyra 16.9 % (11.5-14.5) H 11/02/21 21:00 Plt Count 368 K/uL (130-400) 11/02/21 21:00 MPV 9.7 fL (9.4-12.3) 11/02/21 21:00 Immature Gran % (Auto) 0.4 % 11/02/21 21:00 Neut % (Auto) 78.6 % 11/02/21 21:00 Lymph % (Auto) 12.5 % 11/02/21 21:00 Jerome % (Auto) 8.1 % 11/02/21 21:00 Eos % (Auto) 0.1 % 11/02/21 21:00 Baso % (Auto) 0.3 % 11/02/21 21:00 Neut # (Auto) 5.83 K/uL (1.4-6.5) 11/02/21 21:00 Lymph # (Auto) 0.93 K/uL (1.2-3.4) L 11/02/21 21:00 Jerome # (Auto) 0.60 K/uL (0.24-0.82) 11/02/21 21:00 Eos # (Auto) 0.01 K/uL (0-0.50) 11/02/21 21:00 Baso # (Auto) 0.02 K/uL (0-0.2) 11/02/21 21:00 Immature Gran # (Auto) 0.03 K/uL (0.00-0.02) H 11/02/21 21:00 Sodium 129 mmol/L (136-145) L 11/02/21 21:00 Potassium 5.7 mmol/L (3.5-5.1) H 11/02/21 21:00 Chloride 93 mmol/L (98-107) L 11/02/21 21:00 Carbon Dioxide 29 mmol/L (21-32) 11/02/21 21:00 Anion Gap 7 (3-11) 11/02/21 21:00 BUN 18 mg/dl (6-23) 11/02/21 21:00 Creatinine 0.90 mg/dl (0.6-1.2) 11/02/21 21:00 Est Cr Clr Drug Dosing Not Reportable 11/02/21 21:00 Est GFR ( Amer) 69.0 ml/min 11/02/21 21:00 Est GFR (Non-Af Amer) 59.5 ml/min 11/02/21 21:00 BUN/Creatinine Ratio 20.0 (10-20) 11/02/21 21:00 Glucose 121 mg/dl (70-99(Fasting)) H 11/02/21 21:00 Calcium 9.0 mg/dl (8.5-10.1) 11/02/21 21:00 Magnesium 2.1 mg/dl (1.7-2.4) 11/02/21 21:00 Total Bilirubin 1.3 mg/dl (0.2-1.0) H 11/02/21 21:00 AST 33 U/L (13-39) 11/02/21 21:00 ALT 89 U/L (7-52) H 11/02/21 21:00 Alkaline Phosphatase 180 U/L (34-104) H 11/02/21 21:00 Total Protein 6.2 gm/dl (6.0-8.3) 11/02/21 21:00 Albumin 3.5 gm/dl (3.4-5.0) 11/02/21 21:00 Globulin 2.7 gm/dl (2.5-4.0) 11/02/21 21:00 Albumin/Globulin Ratio 1.3 (0.9-2) 11/02/21 21:00 TSH 6.298 uIu/ml (0.300-4.500) H 11/02/21 21:00 Free T4 1.22 ng/dl (0.61-1.60) 11/02/21 21:00 Urine Color Dark Yellow 11/02/21 22:23 Urine Appearance Cloudy (Clear) A 11/02/21 22: Urine pH 6.5 (4.5-7.5) 11/02/21 22:23 Ur Specific [place] 1.020 (1.000-1.030) 11/02/21 22:23 Urine Protein 1+ (Negative) H 11/02/21 22:23 Urine Glucose (UA) Negative (Negative) 11/02/21 22: Urine Ketones Trace (Negative) H 07/31/22 22:23 Urine Blood 1+ (Negative) H 11/02/21 22:23 Urine Nitrite Negative (Negative) 11/02/21 22:23 Urine Bilirubin Negative (Negative) 11/02/21 22:23 Urine Urobilinogen Negative (Negative) 11/02/21 22:23 Ur Leukocyte Esterase 2+ (Negative) H 11/02/21 22:23 Urine WBC (Auto) >30 /hpf (0-5) H 11/02/21 22:23 Urine RBC (Auto) 5-10 /hpf (0-4) H 11/02/21 22:23 U Hyaline Cast (Auto) 1-5 /lpf (0-5) 11/02/21 22:23 U Epithel Cells (Auto) 0-5 /lpf (0-5) 11/02/21 22:23 Urine Bacteria (Auto) 4+ (Negative) H 11/02/21 22:23 SARS-CoV-2, RNA, NAAT NEGATIVE (NEGATIVE) 11/02/21 21:58 PG Care Time/CCT Total # of Minutes Spent Total Time Spent with Patient: Total time spent is greater than 50% in coordination of care (as documented) at patient's floor/unit and/or counseling patient: Coding Level of Care Code 10715 Initial Inpt Care Lvl 3 Diagnoses UTI (urinary tract infection) N39.0 Electrolyte abnormality E87.8 PAF (paroxysmal atrial fibrillation) I48.0 Hypertension I10 GERD without esophagitis K21.9 Depression F32.9
[2021-11-03] MEDS ORDERED: FUROSEMIDE INJ 20 MG/2 ML VIAL IV ONE (02:20)
[2021-11-03] MEDS ORDERED: SODIUM CHLORIDE 0.9% 1000ML 1,000 ML IV SCH (02:20)
--- NOTE | 2021-11-03 07:08 | CT Scan Report ---
CT SCAN OF THE BRAIN WITHOUT IV CONTRAST CLINICAL HISTORY: Falls. COMPARISON STUDY: CT of the brain dated 09/30/2021. TECHNIQUE: Unenhanced axial CT scan of the brain is performed from the vertex to the skull base. A do se lowering technique was utilized adhering to the principles of ALARA. CT DOSE: 1257.71 mGy.cm FINDINGS: Brain parenchyma: There is age-related involutional change noting advanced confluent subcortical and periventricular microangiopathic disease. There is no hemorrhage, mass effect, or evidence of acute t erritorial ischemia by CT criteria. Zayas-white matter differentiation is preserved. No extra-axial fl uid collection is seen. Ventricles, sulci, cisterns: Prominent secondary to involutional change. Intracranial vasculature: There is atherosclerotic calcification of the cavernous carotid and vertebr al arteries. Calvarium: The skeletal structures are osteopenic. No depressed calvarial fracture is identified. Sinuses and mastoids: The paranasal sinuses are clear. The mastoid air cells are well pneumatized. Orbits: The bony orbits are grossly intact. There are bilateral ocular lens implants. IMPRESSION: There is no hemorrhage, mass effect, or evidence of acute territorial ischemia by CT nicho harvey. ACT 112: Negative or not required by law. Electronically signed by: Semaj Luong M.D. 11/03/2021 7:06 AM
--- NOTE | 2021-11-03 08:11 | XRay Report ---
XR chest 1V portable HISTORY: weakness COMPARISON: Chest 09/22/2021. FINDINGS: No pneumothorax. Old, healed bilateral rib fractures again noted. The heart is enlarged. Sm all to moderate right and small left pleural effusions with bibasilar densities have slightly improve d. Mild pulmonary vascular congestion has also improved. A large hiatus hernia is again noted. IMPRESSION: Interval improvement in the pulmonary vascular congestion and bilateral pleural effusions/opacities. ACT 112: Negative or not required by law. Electronically signed by: Erwin Ha M.D. 11/03/2021 8:10 AM
[2021-11-03] MEDS: APIXABAN 5 MG TABLET PO SCH ×2 (08:39→21:59)
[2021-11-03] MEDS: DULoxetine HCL 60 MG CAP PO SCH (08:42)
[2021-11-03] MEDS: FUROSEMIDE 40 MG TAB PO SCH (08:43)
[2021-11-03] MEDS: FLECAINIDE ACETATE 100 MG TABLET PO SCH ×2 (08:43→21:59)
[2021-11-03] MEDS: MAGNESIUM OXIDE 400 MG TAB PO SCH ×2 (08:43→22:00)
[2021-11-03] MEDS: PANTOprazole 40 MG TAB PO SCH (08:44)
[2021-11-03] MEDS: METOPROLOL SUCC 25MG EXT REL TAB PO SCH (08:44)
--- NOTE | 2021-11-03 09:40 | Hospitalist Progress Note ---
Date of Service November 03, 2021 Assessment & Plan (1) UTI (urinary tract infection): Plan: -UA on admission- 2+ LE, WBCs > 30, bacteria +4 -UCx preliminary growth with gram negative bacilli -Continue ceftriaxone (day 2/3), narrow pending sensitivities -Aim to discharge patient tomorrow after final dose of abx- may administer dose earlier to accommodate discharge -Clinically improving- afebrile, hemodynamically stable, AMS has resolved (2) Electrolyte abnormality: Plan: -Hyponatremia -Na 129, stable -Chronic issue -Hyperkalemia -K 5.7 -No EKG changes, renal function intact -Possibly hemoconcentrated. Trend BMP -Aldosterone pending (3) PAF (paroxysmal atrial fibrillation): Plan: Chronic -Continue Apixaban 5 mg BID -Continue metoprolol succinate 25 mg daily -Continue Flecainide (4) Hypertension: Plan: Blood pressure stable -Continue metoprolol succinate 25 mg daily (5) GERD without esophagitis: Plan: Chronic. Stable -Continue Omeprazole (6) Depression: Plan: Chronic -Continue Duloxetine F/E/N - AHA/Low Na diet as tolerated Ppx - Eliquis Code - DNR/DNI Dispo - Medical/surgical Admission and Anticipated Discharge Date Admission Date: November 03, 2021 Supervising Physician Co-Signing Physician Notes I also saw the patient and confirmed clemente portions of the hsitory and exam. I agree with the impression and plan as noted in the resident note. No complaints upon afternoon rounds. VS as noted. She is afebrile. 133/72, HR 57 Alert, pleasant. CV regular Lungs with non labored respirations. Potassium 5.7 Sodium 129 EKG with widened QRS TSH 6.298 urine gram negative bacilli, sensitivity pending UTI - Continue recephin, await sensitivity Hyperkalemia - BMP now Hyponatremia - more chronic in nature, trend (getting BMP for potassium today) Subjective No acute events overnight Pt reports feeling well. Denies urinary symptoms, abdominal pain, nausea/vomiting. She does report some mild fatigue. Review of Systems Review of Systems: Per subjective Physical Exam Physical Exam: General: patient resting comfortably, NAD, non-toxic in appearance, AOx3 Skin: warm, dry, intact, no rashes or lesions HEENT: NC/AT, anicteric sclera, conjunctiva without injection, external ear normal to inspection and nontender, moist mucus membranes, neck supple, trachea midline Heart: RRR, normal S1/S2, no murmurs noted Lungs: CTAB, unlabored respirations Abd: +BS, soft, NT/ND, no masses/organomegaly/ascites Ext: warm, 2+ pulses in LE bilaterally, no clubbing/cyanosis or edema, capillary refill <2s Neuro: no focal motor or sensory deficits Results & Data Results & Data ([facility]) Vital Signs (Past 12 Hours) Vital Signs Temp Pulse Pulse Resp BP BP Pulse Ox 11/03/21 07:38 36.5 C 69 18 149/82 H 98 11/03/21 02:00 35.8 C L 85 16 133/86 93 11/03/21 01:46 84 18 154/84 H 11/02/21 21:52 80 14 95 O2 Del Method 11/03/21 07:38 Room Air 11/03/21 02:00 Room Air 11/03/21 01:46 Room Air 11/02/21 21:52 Resident Activity Tracking Resident Involvement: Resident Care Provided Care Provided: Adult Hospital Medicine
--- NOTE | 2021-11-03 12:38 | Electrocardiogram Report ---
Test Reason : Blood Pressure : / mmHG Vent. Rate : 078 BPM Atrial Rate : 096 BPM P-R Int : 000 ms QRS Dur : 172 ms QT Int : 530 ms P-R-T Axes : 000 -72 094 degrees QTc Int : 604 ms Wide QRS rhythm consider hyperkalemia Left axis deviation Abnormal ECG When compared with ECG of 01-OCT-2021 05:35, Wide QRS rhythm has replaced Sinus rhythm Confirmed by Joe Schreiber ([id number]) on 11/03/2021 12:38:31 PM Referred By: REFERRED SELF Confirmed By:Hernan Schreiber
[2021-11-03] MEDS: FUROSEMIDE 20 MG TAB PO SCH (14:58)
[2021-11-03 17:02] LABS: BUN Creatinine Ratio 18.7 (10-20); Calcium 8.7 mg/dl (8.5-10.1); Creatinine Clr Calc Pharmacy 44.7 ml/min; Est GFR (African American) 68.1 ml/min; Est GFR (Non-African American) 58.8 ml/min; Potassium 4.8 mmol/L (3.5-5.1)
[2021-11-03] MEDS ORDERED: cefTRIAXone SODIUM 1,000 MG in DEXTROSE 5% 50 ML IV SCH (22:00)
[2021-11-03] MEDS: ACETAMINOPHEN 325 MG TAB PO PRN (22:01)
[2021-11-04] MEDS: FUROSEMIDE 40 MG TAB PO SCH (08:11)
[2021-11-04] MEDS: MAGNESIUM OXIDE 400 MG TAB PO SCH ×2 (08:11→19:29)
[2021-11-04] MEDS: PANTOprazole 40 MG TAB PO SCH (08:11)
[2021-11-04] MEDS: METOPROLOL SUCC 25MG EXT REL TAB PO SCH (08:11)
[2021-11-04] MEDS: APIXABAN 5 MG TABLET PO SCH ×2 (08:11→19:28)
[2021-11-04] MEDS: DULoxetine HCL 60 MG CAP PO SCH (08:11)
[2021-11-04] MEDS: FLECAINIDE ACETATE 100 MG TABLET PO SCH ×2 (08:11→19:29)
[2021-11-04 09:07] LABS: Basophils # (auto) 0.05 K/uL (0-0.2); Basophils % (auto) 0.6 %; Eosinophils # (auto) 0.01 K/uL (0-0.50); Eosinophils % (auto) 0.1 %; Hematocrit (blood only) 38.7 % (34.1-44.9); Hemoglobin 13.1 g/dl (12.0-16.0); Immature Granulocytes # (auto) 0.02 K/uL (0.00-0.02); Immature Granulocytes % (auto) 0.2 %; Lymphocytes # (auto) 1.01 K/uL (1.2-3.4); Lymphocytes % (auto) 12.1 %; Mean Corpuscular Hemoglobin 34.5 pg (25.0-34.0); Mean Corpuscular Hgb Conc 33.9 g/dL (32.0-36.0); Mean Corpuscular Volume 101.8 fL (80.0-100.0); Mean Platelet Volume 9.4 fL (9.4-12.3); Monocytes # (auto) 0.64 K/uL (0.24-0.82); Monocytes % (auto) 7.7 %; Neutrophils # (auto) 6.61 K/uL (1.4-6.5); Neutrophils % (auto) 79.3 %; Platelet Count 305 K/uL (130-400); RDW Standard Deviation 63.7 fL (36.4-46.3); White Blood Count 8.34 K/ul (4.8-10.8)
[2021-11-04 09:39] LABS: Albumin Level 3.1 gm/dl (3.4-5.0); BUN Creatinine Ratio 17.2 (10-20); Bilirubin Direct 0.2 mg/dl (0-0.2); Bilirubin,Total 0.8 mg/dl (0.2-1.0); Calcium 8.5 mg/dl (8.5-10.1); Creatinine Clr Calc Pharmacy 43.8 ml/min; Est GFR (African American) 66.3 ml/min; Est GFR (Non-African American) 57.2 ml/min; Potassium 4.9 mmol/L (3.5-5.1); Total Protein 5.7 gm/dl (6.0-8.3)
--- NOTE | 2021-11-04 11:21 | Discharge Summary ---
Date of Service November 04, 2021 Admission HPI Per Admitting Provider Brionna Carvajal is an 81yo female presenting with UTI and confusion. Patient lives alone. She developed dysuria as well as confusion 3 days ago. She was seen by Cardiology on 10/30/21 for routine followup and was started on Ciprofloxacin 500mg po BID x 5 day course for treatment of acute uncomplicated UTI. She denies fever, chills, chest pain, palpitations, abdominal pain, nausea, vomiting, diarrhea or constipation. She has been experiencing dysuria as well as gait instability and falls. In the ER patient afebrile, HD stable, NAD. She had some confusion and possible hallucinations- asking about her friend, worrying that he could get home safely. Discussion with nursing staff revealed patient did not have any visitors. ER Course: Ceftriaxone, NSS Admission Exam Per Admitting Provider General: patient resting comfortably, NAD, non-toxic in appearance, AA&O to self and location Skin: warm, dry, intact, no rashes or lesions HEENT: NC/AT, PERRL, EOMI, anicteric sclera, conjunctiva without injection, external ear normal to inspection and nontender, nares patent, moist mucus membranes, dentition intact, no oropharyngeal lesions, neck supple, trachea midline, no LAD, no thyromegaly, no JVD Heart: +S1/S2, regular, no m/r/g Lungs: equal air entry bilaterally, no rales/rhonchi/wheezes Abd: +BS, soft, NT/ND, no masses/organomegaly/ascites Ext: warm, 2+ pulses in UE/LE bilaterally, no clubbing/cyanosis or edema Neuro: nonfocal, patient AA&O x 2, speech intact, no facial droop, moving all extremities on command with equal strength 5/5 Principal Diagnosis Urinary tract infection Discharge Exam General: patient resting comfortably, NAD, non-toxic in appearance, AOx3 Skin: warm, dry, intact, no rashes or lesions HEENT: NC/AT, anicteric sclera, conjunctiva without injection, external ear normal to inspection and nontender, moist mucus membranes, neck supple, trachea midline Heart: RRR, normal S1/S2, no murmurs noted Lungs: CTAB, unlabored respirations Abd: +BS, soft, NT/ND, no masses/organomegaly/ascites Ext: warm, 2+ pulses in LE bilaterally, no clubbing/cyanosis or edema, capillary refill <2s Neuro: no focal motor or sensory deficits Discharge Data Allergies Allergy/AdvReac Type Severity Reaction Status Date / Time No Known Allergies Allergy Verified 10/30/21 15:03 Consultations 11/02/21 23:13 ED Decision to Admit Stat Ordered Studies 11/02/21 21:49 CT head/brain wo con Stat Hospital Course (1) UTI (urinary tract infection): -UA on admission- 2+ LE, WBCs > 30, bacteria +4 -UCx growing ESBL Klebsiella with resistance to ciprofloxacin and ceftriaxone. This means pt was not receiving adequate treatment for her infection -Discharge -Continue ceftriaxone (day 2/3), narrow pending sensitivities -Aim to discharge patient tomorrow after final dose of abx- may administer dose earlier to accommodate discharge -Clinically improving- afebrile, hemodynamically stable, AMS has resolved (2) Electrolyte abnormality: -Hyponatremia -Na 130 on day of discharge, stable -Chronic issue -Hyperkalemia -K 4.9 on day of discharge -Aldosterone pending at discharge (3) PAF (paroxysmal atrial fibrillation): Chronic -Continued Apixaban 5 mg BID -Continued metoprolol succinate 25 mg daily -Continued Flecainide (4) Hypertension: Blood pressure stable during stay -Continued metoprolol succinate 25 mg daily (5) GERD without esophagitis: Chronic. Stable -Continued Omeprazole (6) Depression: Chronic -Continued Duloxetine Discharge Plan Discharge Items Reason For Visit: UTI, CONFUSION, FALLS Follow-up/Referrals: Kimber Prater DO [Primary Care Provider] - Medications and DC Order Prescriptions: No Action flecainide 100 mg tablet 100 mg PO Q12H Qty: 180 1RF ferrous sulfate 325 mg (65 mg iron) tablet,delayed release (DR/EC) 325 mg PO DAILY Qty: 30 5RF magnesium oxide 400 mg (241.3 mg magnesium) tablet 400 mg PO BID Qty: 60 5RF PreserVision AREDS [id number],[id number] zyan-kz-kroz capsule 1 cap PO BID diphenhydramine-acetaminophen [Tylenol PM Extra Strength] 25-500 mg tablet 1 tab PO HS PRN (Reason: Pain) acetaminophen [Tylenol Extra Strength] 500 mg tablet 500 mg PO Q6H PRN (Reason: Pain) omeprazole 40 mg capsule,delayed release(DR/EC) 40 mg PO QAM Qty: 90 1RF potassium chloride 20 mEq tablet extended release 20 meq PO DAILY Qty: 30 2RF furosemide 20 mg tablet See Rx Instructions .ROUTE .COMPLEX 90 Days Qty: 270 1RF Rx Instructions: take 2 tabs PO in AM, 1 tab PO afternoon; tramadol 50 mg tablet 50 mg PO Q4H PRN (Reason: moderate-severe knee pain) Qty: 30 0RF duloxetine 60 mg capsule,delayed release(DR/EC) 60 mg PO QAM Qty: 90 1RF Centrum Silver 0.4-300-250 mg-mcg-mcg tablet 1 tab PO DAILY Eliquis 5 mg tablet 5 mg PO BID Qty: 60 5RF Hold Instructions: Home Medication placed on hold at Doctor's office clindamycin HCl 300 mg capsule 300 mg PO Q8H 7 Days Qty: 21 0RF ciprofloxacin HCl 500 mg tablet 500 mg PO BID Qty: 10 1RF metoprolol succinate 25 mg Tablet Extended Release 24 Hr 25 mg PO QAM Qty: 30 4RF Admission Data Admit Date/Time: 11/03/21 00:02 Attending Provider: Tapan Rincon Admit Provider: Arline Mack Primary Care Provider: Kimber Prater. Other Providers: Arline Mack Resident Activity Tracking Resident Involvement: Resident Care Provided Care Provided: Adult Hospital Medicine
--- NOTE | 2021-11-04 11:54 | Hospitalist Progress Note ---
Date of Service November 04, 2021 Assessment & Plan (1) UTI (urinary tract infection): Plan: -UA on admission- 2+ LE, WBCs > 30, bacteria +4 -Received ceftriaxone from admission for empiric treatment -UCx growing ESBL Klebsiella with resistance to ciprofloxacin and ceftriaxone. This means pt was not receiving adequate treatment for her infection -Switched to Augmentin due to susceptibility- will do 875 mg BID x7 days -Clinically stable- afebrile, hemodynamically stable, AMS has resolved -Disposition planning- pt's family would like rehab on discharge- PT/OT ordered, evaluations pending (2) Electrolyte abnormality: Plan: -Hyponatremia -Na 130, stable -Chronic issue -Hyperkalemia -K 4.9 -Aldosterone pending -Continue trending BMP (3) PAF (paroxysmal atrial fibrillation): Plan: Chronic -Continue Apixaban 5 mg BID -Continue metoprolol succinate 25 mg daily -Continue Flecainide (4) Hypertension: Plan: Blood pressure stable during stay -Continue metoprolol succinate 25 mg daily (5) GERD without esophagitis: Plan: Chronic. Stable -Continue Omeprazole (6) Depression: Plan: Chronic -Continue Duloxetine Admission and Anticipated Discharge Date Admission Date: November 03, 2021 Supervising Physician Co-Signing Physician Notes I personally examined the patient and verified all clemente points of history and exam, discussed case, and agree with decision making with Dr Ortiz. Confused. Family notes that she is good at baseline. They would prefer rehab. Vitals noted, in general she is awake and alert pleasant no distress. HEENT normocephalic atraumatic mucous membranes moist. Breathing unlabored no accessory muscle use good effort. Skin shows no rashes no pallor or icterus. Neuro without focal deficits. Encephalopathyhard to distinguish if toxic from Cipro, or metabolic/septic from UTIcould be elements of both. At any ratenow on ertapenem. Continue supportive care. Not actually septic to clarify. Weaknessfor rehab. Otherwise as above Subjective No acute events overnight Pt reports feeling well. Denies urinary symptoms, abdominal pain, nausea/vomiting. Interview may be limited by patient's baseline cognitive decline.. Review of Systems Review of Systems: Per subjective Physical Exam Physical Exam: General: patient resting comfortably, NAD, non-toxic in appearance, AOx3 Skin: warm, dry, intact, no rashes or lesions HEENT: NC/AT, anicteric sclera, conjunctiva without injection, external ear normal to inspection and nontender, moist mucus membranes, neck supple, trachea midline Heart: RRR, normal S1/S2, no murmurs noted Lungs: CTAB, unlabored respirations Abd: +BS, soft, NT/ND, no masses/organomegaly/ascites Ext: warm, 2+ pulses in LE bilaterally, no clubbing/cyanosis or edema, capi llary refill <2s Neuro: no focal motor or sensory deficits Results & Data Results & Data ([facility]) Vital Signs (Past 12 Hours) Vital Signs Temp Pulse Resp BP Pulse Ox O2 Del Method 11/04/21 08:31 Room Air 11/04/21 07:46 36.5 C 76 18 127/86 96 Room Air Resident Activity Tracking Resident Involvement: Resident Care Provided Care Provided: Adult Hospital Medicine
[2021-11-04] MEDS: FUROSEMIDE 20 MG TAB PO SCH (14:00)
[2021-11-04] MEDS: ERTAPENEM SODIUM 1,000 MG in SYRINGE 0 ML IV SCH (15:25)
--- NOTE | 2021-11-04 19:18 | Billing Data ---
Date of Service November 04, 2021 Coding Level of Care Code 95260 Subseq Hosp Care Lvl 3
[2021-11-05] MEDS: APIXABAN 5 MG TABLET PO SCH ×2 (09:28→19:46)
[2021-11-05] MEDS: DULoxetine HCL 60 MG CAP PO SCH (09:28)
[2021-11-05] MEDS: FLECAINIDE ACETATE 100 MG TABLET PO SCH ×2 (09:29→19:46)
[2021-11-05] MEDS: FUROSEMIDE 40 MG TAB PO SCH (09:30)
[2021-11-05] MEDS: MAGNESIUM OXIDE 400 MG TAB PO SCH ×2 (09:32→19:46)
[2021-11-05] MEDS: PANTOprazole 40 MG TAB PO SCH (09:32)
[2021-11-05] MEDS: METOPROLOL SUCC 25MG EXT REL TAB PO SCH (09:32)
--- NOTE | 2021-11-05 09:59 | Hospitalist Progress Note ---
Date of Service November 05, 2021 Assessment & Plan (1) UTI (urinary tract infection): Plan: -UA on admission- 2+ LE, WBCs > 30, bacteria +4 -Received ceftriaxone from admission for empiric treatment -UCx growing ESBL Klebsiella with resistance to ciprofloxacin and ceftriaxone. This means pt was not receiving adequate treatment for her infection. Switched to ertapenem on 11/04 -Continue ertapenem (day 2/3) -Clinically stable- afebrile, hemodynamically stable -AMS appears resolved, current confusion likely from acute infection + hypoactive hospital delirium -Disposition planning- pt's family would like rehab on discharge- PT/OT evaluations pending (2) Electrolyte abnormality: Plan: -Hyponatremia -Na 130, stable -Chronic issue -Hyperkalemia -K 4.9 today, resolved -Aldosterone pending -Continue trending BMP (3) PAF (paroxysmal atrial fibrillation): Plan: Chronic -Continue Apixaban 5 mg BID -Continue metoprolol succinate 25 mg daily -Continue Flecainide (4) Hypertension: Plan: Blood pressure stable during stay -Continue metoprolol succinate 25 mg daily (5) GERD without esophagitis: Plan: Chronic. Stable -Continue Omeprazole (6) Depression: Plan: Chronic -Continue Duloxetine Admission and Anticipated Discharge Date Admission Date: November 03, 2021 Supervising Physician Co-Signing Physician Notes I personally examined the patient and verified all clemente points of history and exam, discussed case, and agree with decision making with Dr Ortiz. no meaningful HPI/ROS otherwise as above. awaiting placement Vitals noted, sleeping comfortably. no distress. HEENT normocephalic atraumatic mucous membranes moist. Breathing unlabored no accessory muscle use good effort. Skin shows no rashes no pallor or icterus. Neuro without focal deficits. Encephalopathyhard to distinguish if toxic from Cipro, or metabolic/septic from UTIcould be elements of both. now on ertapenem. Continue supportive care. Not actually septic to clarify. Weaknessfor rehab when bed available. Otherwise as above Subjective No acute events overnight. Pt was difficult to understand this morning, appeared tired and spoke in quiet voice. She seemed to deny any urinary symptoms, abdominal pain, fevers, chills but did endorse some moderate dull mid-back pain. Review of Systems Review of Systems: Per subjective Physical Exam Physical Exam: General: tired-appearing, quiet but conversational Skin: warm, dry, intact, no rashes or lesions HEENT: NC/AT, anicteric sclera, conjunctiva without injection, external ear normal to inspection and nontender, moist mucus membranes, neck supple, trachea midline Heart: RRR, normal S1/S2, no murmurs noted Lungs: CTAB, unlabored respirations Abd: +BS, soft, NT/ND, no masses/organomegaly/ascites Ext: warm, 2+ pulses in LE bilaterally, no clubbing/cyanosis or edema, capillary refill <2s Neuro: no focal motor or sensory deficits Results & Data Results & Data ([facility]) Vital Signs (Past 12 Hours) Vital Signs Temp Pulse Resp BP BP Pulse Ox O2 Del Method 11/05/21 09:19 Room Air 11/05/21 07:33 36.4 C L 80 18 133/79 96 Room Air 11/04/21 22:14 36.6 C 80 20 124/85 96 Room Air Resident Activity Tracking Resident Involvement: Resident Care Provided Care Provided: Adult Hospital Medicine
[2021-11-05 10:07] LABS: Hemoglobin 13.2 g/dl (12.0-16.0); Mean Corpuscular Hemoglobin 34.1 pg (25.0-34.0); Mean Corpuscular Hgb Conc 33.8 g/dL (32.0-36.0); Mean Corpuscular Volume 100.8 fL (80.0-100.0); Mean Platelet Volume 9.5 fL (9.4-12.3); Platelet Count 308 K/uL (130-400); RDW Standard Deviation 62.7 fL (36.4-46.3); Red Blood Count 3.87 M/uL (3.93-5.22); White Blood Count 6.97 K/ul (4.8-10.8)
[2021-11-05 10:25] LABS: BUN Creatinine Ratio 16.7 (10-20); Calcium 8.8 mg/dl (8.5-10.1); Creatinine Clr Calc Pharmacy 37.7 ml/min; Est GFR (African American) 55.4 ml/min; Est GFR (Non-African American) 47.8 ml/min; Potassium 4.9 mmol/L (3.5-5.1)
[2021-11-05] MEDS: FUROSEMIDE 20 MG TAB PO SCH (13:54)
[2021-11-05] MEDS: ERTAPENEM SODIUM 1,000 MG in SYRINGE 0 ML IV SCH (17:17)
--- NOTE | 2021-11-05 18:48 | Billing Data ---
Date of Service November 05, 2021 Coding Level of Care Code 06943 Subseq Hosp Care Lvl 1
[2021-11-06 06:25] LABS: Hematocrit (blood only) 37.7 % (34.1-44.9); Hemoglobin 12.8 g/dl (12.0-16.0); Mean Corpuscular Hemoglobin 34.7 pg (25.0-34.0); Mean Corpuscular Volume 102.2 fL (80.0-100.0); Mean Platelet Volume 9.5 fL (9.4-12.3); Platelet Count 280 K/uL (130-400); RDW Coefficient of Variation 16.3 % (11.5-14.5); RDW Standard Deviation 61.9 fL (36.4-46.3); Red Blood Count 3.69 M/uL (3.93-5.22)
[2021-11-06 07:20] LABS: BUN Creatinine Ratio 19.4 (10-20); Calcium 8.4 mg/dl (8.5-10.1); Creatinine Clr Calc Pharmacy 41.5 ml/min; Est GFR (African American) 62.3 ml/min; Est GFR (Non-African American) 53.7 ml/min; Potassium 4.1 mmol/L (3.5-5.1)
[2021-11-06] MEDS: APIXABAN 5 MG TABLET PO SCH ×2 (09:13→19:49)
[2021-11-06] MEDS: FLECAINIDE ACETATE 100 MG TABLET PO SCH ×2 (09:14→19:49)
[2021-11-06] MEDS: DULoxetine HCL 60 MG CAP PO SCH (09:14)
[2021-11-06] MEDS: MAGNESIUM OXIDE 400 MG TAB PO SCH ×2 (09:15→19:49)
[2021-11-06] MEDS: METOPROLOL SUCC 25MG EXT REL TAB PO SCH (09:15)
[2021-11-06] MEDS: FUROSEMIDE 40 MG TAB PO SCH (09:15)
[2021-11-06] MEDS: PANTOprazole 40 MG TAB PO SCH (09:16)
[2021-11-06] MEDS: ACETAMINOPHEN 325 MG TAB PO PRN (10:08)
--- NOTE | 2021-11-06 10:34 | Hospitalist Progress Note ---
Date of Service November 06, 2021 Assessment & Plan (1) UTI (urinary tract infection): Plan: -UA on admission- 2+ LE, WBCs > 30, bacteria +4 -Received ceftriaxone from admission for empiric treatment -UCx growing ESBL Klebsiella with resistance to ciprofloxacin and ceftriaxone. This means pt was not receiving adequate treatment for her infection. Switched to ertapenem on 11/04 -Continue ertapenem (day 3), will switch to Augmentin 875 mg BID tomorrow and complete 7 day course -Clinically stable- afebrile, hemodynamically stable -AMS improving, was likely from acute infection + hypoactive hospital delirium -Disposition planning- awaiting rehab placement (2) Electrolyte abnormality: Plan: -Hyponatremia -Na 132, stable -Chronic issue -Hyperkalemia -K 4.1 today, resolved on 11/05 -Aldosterone pending -Continue trending BMP (3) PAF (paroxysmal atrial fibrillation): Plan: Chronic -Continue Apixaban 5 mg BID -Continue metoprolol succinate 25 mg daily -Continue Flecainide (4) Hypertension: Plan: Blood pressure stable during stay -Continue metoprolol succinate 25 mg daily (5) GERD without esophagitis: Plan: Chronic. Stable -Continue Omeprazole (6) Depression: Plan: Chronic -Continue Duloxetine Admission and Anticipated Discharge Date Admission Date: November 03, 2021 Supervising Physician Co-Signing Physician Notes I personally examined the patient and verified all clemente points of history and exam, discussed case, and agree with decision making with Dr Ortiz. Resting comfortably. For placement tomorrow. Vitals noted, sleeping comfortably. no distress. HEENT normocephalic atraumatic mucous membranes moist. Breathing unlabored no accessory muscle use good effort. Skin shows no rashes no pallor or icterus. Neuro without focal deficits. Encephalopathyhard to distinguish if toxic from Cipro, or metabolic/septic from UTIcould be elements of both. now on ertapenem. Continue supportive care. Not actually septic for clarification Weaknessfor SNF, rehab emphasis tomorrow Otherwise as above Subjective No acute events overnight. Pt more interactive this morning. Denied any new complaints, reporting some mild back soreness. Stated she was fine with going to rehab. No urinary symptoms. Review of Systems Review of Systems: Per subjective Physical Exam Physical Exam: General: tired-appearing, quiet but conversational Skin: warm, dry, intact, no rashes or lesions HEENT: NC/AT, anicteric sclera, conjunctiva without injection, external ear normal to inspection and nontender, moist mucus membranes, neck supple, trachea midline Heart: RRR, normal S1/S2, no murmurs noted Lungs: CTAB, unlabored respirations Abd: +BS, soft, NT/ND, no masses/organomegaly/ascites Ext: warm, 2+ pulses in LE bilaterally, no clubbing/cyanosis or edema, capillary refill <2s Neuro: no focal motor or sensory deficits Results & Data Results & Data ([facility]) Vital Signs (Past 12 Hours) Vital Signs Pulse Resp BP Pulse Ox O2 Del Method 11/06/21 09:19 66 18 111/68 93 Room Air Resident Activity Tracking Resident Involvement: Resident Care Provided Care Provided: Adult Hospital Medicine
[2021-11-06] MEDS ORDERED: COVID-19 VACC, TRIS(PFIZER)/PF 30 MCG/0.3 ML VIAL IM ONE (15:47)
[2021-11-06] MEDS: ERTAPENEM SODIUM 1,000 MG in SYRINGE 0 ML IV SCH (16:27)
[2021-11-06] MEDS: FUROSEMIDE 20 MG TAB PO SCH (16:27)
--- NOTE | 2021-11-06 17:27 | Billing Data ---
Date of Service November 06, 2021 Coding Level of Care Code 05281 Subseq Hosp Care Lvl 1
[2021-11-07 06:31] LABS: BUN Creatinine Ratio 18.5 (10-20); Calcium 8.3 mg/dl (8.5-10.1); Creatinine Clr Calc Pharmacy 44.2 ml/min; Est GFR (African American) 67.2 ml/min; Potassium 3.9 mmol/L (3.5-5.1)
[2021-11-07] MEDS ORDERED: AMOXICILLIN/CLAVULANATE 875 MG TAB PO SCH (08:00)
--- NOTE | 2021-11-07 10:03 | Discharge Summary ---
Date of Service November 07, 2021 Admission HPI Per Admitting Provider Brionna Carvajal is an 81yo female presenting with UTI and confusion. Patient lives alone. She developed dysuria as well as confusion 3 days ago. She was seen by Cardiology on 10/30/21 for routine followup and was started on Ciprofloxacin 500mg po BID x 5 day course for treatment of acute uncomplicated UTI. She denies fever, chills, chest pain, palpitations, abdominal pain, nausea, vomiting, diarrhea or constipation. She has been experiencing dysuria as well as gait instability and falls. In the ER patient afebrile, HD stable, NAD. She had some confusion and possible hallucinations- asking about her friend, worrying that he could get home safely. Discussion with nursing staff revealed patient did not have any visitors. ER Course: Ceftriaxone, NSS Admission Exam Per Admitting Provider General: patient resting comfortably, NAD, non-toxic in appearance, AA&O to self and location Skin: warm, dry, intact, no rashes or lesions HEENT: NC/AT, PERRL, EOMI, anicteric sclera, conjunctiva without injection, external ear normal to inspection and nontender, nares patent, moist mucus membranes, dentition intact, no oropharyngeal lesions, neck supple, trachea midline, no LAD, no thyromegaly, no JVD Heart: +S1/S2, regular, no m/r/g Lungs: equal air entry bilaterally, no rales/rhonchi/wheezes Abd: +BS, soft, NT/ND, no masses/organomegaly/ascites Ext: warm, 2+ pulses in UE/LE bilaterally, no clubbing/cyanosis or edema Neuro: nonfocal, patient AA&O x 2, speech intact, no facial droop, moving all extremities on command with equal strength 5/5 Principal Diagnosis Urinary tract infection Discharge Exam General: pleasant, no acute distress Skin: warm, dry, intact, no rashes or lesions HEENT: NC/AT, anicteric sclera, conjunctiva without injection, external ear normal to inspection and nontender, moist mucus membranes, neck supple, trachea midline Heart: RRR, normal S1/S2, no murmurs noted Lungs: CTAB, unlabored respirations Abd: +BS, soft, NT/ND, no masses/organomegaly/ascites Ext: warm, 2+ pulses in LE bilaterally, no clubbing/cyanosis or edema, capillary refill <2s Neuro: no focal motor or sensory deficits Discharge Data Allergies Allergy/AdvReac Type Severity Reaction Status Date / Time No Known Allergies Allergy Verified 10/30/21 15:03 Consultations 11/02/21 23:13 ED Decision to Admit Stat Ordered Studies 11/02/21 21:49 CT head/brain wo con Stat Hospital Course (1) UTI (urinary tract infection): (1) UTI (urinary tract infection): Plan: -UA on admission- 2+ LE, WBCs > 30, bacteria +4 -Received ceftriaxone from admission for empiric treatment -UCx growing ESBL Klebsiella with resistance to ciprofloxacin and ceftriaxone. This means pt was not receiving adequate treatment for her infection. Switched to ertapenem on 11/04 -Ertapenem 11/04 - 11/06, discharged on Augmentin 875 mg BID to complete 7 day course (abx complete on 11/10) -Clinically stable- afebrile, hemodynamically stable -AMS largely resolved, was likely from acute infection + hypoactive hospital delirium -Disposition planning- discharged to acute rehab at [facility] due to generalized weakness at request of family (2) Electrolyte abnormality: Plan: -Hyponatremia -Na 132, stable -Chronic issue -Aldosterone pending at time of discharge (3) PAF (paroxysmal atrial fibrillation): Plan: Chronic -Continue Apixaban 5 mg BID -Continue metoprolol succinate 25 mg daily -Continue Flecainide (4) Hypertension: Plan: Blood pressure stable during stay -Continue metoprolol succinate 25 mg daily (5) GERD without esophagitis: Plan: Chronic. Stable -Continue Omeprazole (6) Depression: Plan: Chronic -Continue Duloxetine (2) Electrolyte abnormality: (3) PAF (paroxysmal atrial fibrillation): (4) Hypertension: (5) GERD without esophagitis: (6) Depression: Total Time Total Time Spent Total Time Spent (In Minutes): <30 Discharge Plan Discharge Items Patient Disposition: Transfer Inpatient Rehab Fac Reason For Visit: UTI, CONFUSION, FALLS Discharge Diagnosis: UTI Activity: Resume your previous activity Non-emergency contact: Primary Care Provider Call non-emergency contact if: you have any medication questions, your symptoms worsen and you have a fever Follow-up/Referrals: Kimber Prater DO [Primary Care Provider] - Diet: Heart Healthy Addtl Attending Provider Instructions: (1) UTI (urinary tract infection): Plan: -UA on admission- 2+ LE, WBCs > 30, bacteria +4 -Received ceftriaxone from admission for empiric treatment -UCx growing ESBL Klebsiella with resistance to ciprofloxacin and ceftriaxone. This means pt was not receiving adequate treatment for her infection. Switched to ertapenem on 11/04 -Ertapenem completed 11/04-11/06, Augmentin 875 mg BID initiated on 11/07 and will complete 7 day course (Augmentin to conclude on 11/10) -Clinically stable- afebrile, hemodynamically stable -AMS largely resolved, was likely from acute infection + hypoactive hospital delirium -Discharged to acute rehab on 11/07 for generalized weakness/history of recurrent falls (2) Electrolyte abnormality: Plan: -Hyponatremia -Na 132, stable -Chronic issue -Aldosterone pending at time of discharge -Continue trending BMP (3) PAF (paroxysmal atrial fibrillation): Plan: Chronic -Continue Apixaban 5 mg BID -Continue metoprolol succinate 25 mg daily -Continue Flecainide (4) Hypertension: Plan: Blood pressure stable during stay -Continue metoprolol succinate 25 mg daily (5) GERD without esophagitis: Plan: Chronic. Stable -Continue Omeprazole (6) Depression: Plan: Chronic -Continue Duloxetine Pending Studies at Discharge: No Stand-Alone Forms: [facility] Skilled Items Patient informed of condition?: Yes DNR: Yes Discharge Level of Care: Acute rehab Communicable Disease: No Discharge Prognosis: Stable Lines: None Urinary Catheter: No Medications and DC Order Prescriptions: New amoxicillin-pot clavulanate 875-125 mg tablet 1 tab PO BID 4 Days Qty: 8 0RF Continued flecainide 100 mg tablet 100 mg PO Q12H Qty: 180 1RF ferrous sulfate 325 mg (65 mg iron) tablet,delayed release (DR/EC) 325 mg PO DAILY Qty: 30 5RF magnesium oxide 400 mg (241.3 mg magnesium) tablet 400 mg PO BID Qty: 60 5RF PreserVision AREDS [id number] [id number] capsule 1 cap PO BID diphenhydramine-acetaminophen [Tylenol PM Extra Strength] 25-500 mg tablet 1 tab PO HS PRN (Reason: Pain) acetaminophen [Tylenol Extra Strength] 500 mg tablet 500 mg PO Q6H PRN (Reason: Pain) omeprazole 40 mg capsule,delayed release(DR/EC) 40 mg PO QAM Qty: 90 1RF potassium chloride 20 mEq tablet extended release 20 meq PO DAILY Qty: 30 2RF furosemide 20 mg tablet See Rx Instructions .ROUTE .COMPLEX 90 Days Qty: 270 1RF Rx Instructions: take 2 tabs PO in AM, 1 tab PO afternoon; tramadol 50 mg tablet 50 mg PO Q4H PRN (Reason: moderate-severe knee pain) Qty: 30 0RF duloxetine 60 mg capsule,delayed release(DR/EC) 60 mg PO QAM Qty: 90 1RF Centrum Silver 0.4-300-250 mg-mcg-mcg tablet 1 tab PO DAILY Eliquis 5 mg tablet 5 mg PO BID Qty: 60 5RF Hold Instructions: Home Medication placed on hold at Doctor's office clindamycin HCl 300 mg capsule 300 mg PO Q8H 7 Days Qty: 21 0RF metoprolol succinate 25 mg Tablet Extended Release 24 Hr 25 mg PO QAM Qty: 30 4RF Discontinued ciprofloxacin HCl 500 mg tablet 500 mg PO BID Qty: 10 1RF Discharge Orders: Discharge Order (Routine); Ordered 11/07/21 Ordered By: Handy Pineda/Other Patient Handouts: ED Fall Prevention Admission Data Admit Date/Time: 11/03/21 00:02 Attending Provider: Tapan Rincon Admit Provider: Arline Mack Primary Care Provider: Kimber Prater. Other Providers: Arline Mack ; [facility] Other Interventions: Discharge Summary Assessment (RN) Last Done: 11/07/21 12:37 Supervising Physician Co-Signing Physician Notes I personally examined the patient and verified all clemente points of history and exam, discussed case, and agree with decision making with Dr Ortiz. Resting comfortably. For placement today Vitals noted, sleeping comfortably. no distress. HEENT normocephalic atraumatic mucous membranes moist. Breathing unlabored no accessory muscle use good effort. Skin shows no rashes no pallor or icterus. Neuro without focal deficits. Encephalopathyhard to distinguish if toxic from Cipro, or metabolic/septic from UTIcould be elements of both. ertapenem --> augmentin Weaknessfor SNF, rehab emphasis today Otherwise as above Resident Activity Tracking Resident Involvement: Resident Care Provided Care Provided: Adult Hospital Medicine
[2021-11-07] MEDS: APIXABAN 5 MG TABLET PO SCH (10:10)
[2021-11-07] MEDS: FLECAINIDE ACETATE 100 MG TABLET PO SCH (10:11)
[2021-11-07] MEDS: DULoxetine HCL 60 MG CAP PO SCH (10:11)
[2021-11-07] MEDS: MAGNESIUM OXIDE 400 MG TAB PO SCH (10:12)
[2021-11-07] MEDS: FUROSEMIDE 40 MG TAB PO SCH (10:12)
[2021-11-07] MEDS: PANTOprazole 40 MG TAB PO SCH (10:13)
[2021-11-07] MEDS: METOPROLOL SUCC 25MG EXT REL TAB PO SCH (10:13)
[2021-11-07] MEDS ORDERED: COVID-19 VACC, TRIS(PFIZER)/PF 30 MCG/0.3 ML VIAL IM ONE (11:00)
--- NOTE | 2021-11-07 19:53 | Billing Data ---
Date of Service November 07, 2021 Coding Level of Care Code D/C DAY MANAGEMENT <30 MINS
== END 2021-11-07 13:35 | DRG 689 ==
LOC: ED 21:05 → 3N 11-03 00:02 → SUATTDRO 11-03 00:02 → 3N 11-03 01:46
DX: Y92.009 Unspecified place in unspecified non-institutional (private) residence as the place of occurrence of the external cause; B96.1 Klebsiella pneumoniae [K. pneumoniae] as the cause of diseases classified elsewhere; R29.6 Repeated falls; I48.0 Paroxysmal atrial fibrillation; J90 Pleural effusion, not elsewhere classified; N39.0 Urinary tract infection, site not specified; E87.1 Hypo-osmolality and hyponatremia; N18.30 Chronic kidney disease, stage 3 unspecified; K21.9 Gastro-esophageal reflux disease without esophagitis; I10 Essential (primary) hypertension; T36.8X5A Adverse effect of other systemic antibiotics, initial encounter; G93.41 Metabolic encephalopathy; G92.8 Other toxic encephalopathy

== ENCOUNTER 2022-03-05 19:08 | Inpatient (IN) ==
--- NOTE | 2022-03-05 19:45 | XRay Report ---
SINGLE VIEW CHEST CLINICAL HISTORY: Unspecified illness FINDINGS: An AP, portable, upright chest radiograph is compared to study dated 11/02/2021. Correlation is made with chest CT dated 09/30/2021. The examination is degraded by portable technique and patient rotation. The heart is enlarged noting atherosclerotic calcification of the thoracic aorta. The pulm onary vasculature is noncongested. Chronic interstitial thickening similar to previous. There are lay ering pleural effusions with dependent consolidation. No pneumothorax is seen. The skeletal structure s are osteopenic. There are numerous healed bilateral rib fractures. Degenerative change and scoliosi s is noted in the thoracic spine. IMPRESSION: 1. Cardiomegaly without radiographic evidence of congestive failure. 2. Layering pleural effusions with dependent consolidation. ACT 112: Negative or not required by law. Electronically signed by: Semaj Luong M.D. 03/05/2022 7:44 PM
[2022-03-05 19:56] LABS: Basophils # (auto) 0.07 K/uL (0-0.2); Basophils % (auto) 0.4 %; Eosinophils # (auto) 0.16 K/uL (0-0.50); Hematocrit (blood only) 34.7 % (34.1-44.9); Hemoglobin 11.3 g/dl (12.0-16.0); Immature Granulocytes # (auto) 0.06 K/uL (0.00-0.02); Immature Granulocytes % (auto) 0.4 %; Lymphocytes # (auto) 1.76 K/uL (1.2-3.4); Lymphocytes % (auto) 10.8 %; Mean Corpuscular Hemoglobin 33.2 pg (25.0-34.0); Mean Corpuscular Hgb Conc 32.6 g/dL (32.0-36.0); Mean Corpuscular Volume 102.1 fL (80.0-100.0); Mean Platelet Volume 10.1 fL (9.4-12.3); Monocytes # (auto) 1.09 K/uL (0.24-0.82); Monocytes % (auto) 6.7 %; Neutrophils # (auto) 13.14 K/uL (1.4-6.5); Neutrophils % (auto) 80.7 %; Platelet Count 242 K/uL (130-400); RDW Coefficient of Variation 14.4 % (11.5-14.5); RDW Standard Deviation 53.5 fL (36.4-46.3); White Blood Count 16.28 K/ul (4.8-10.8)
[2022-03-05 20:15] LABS: Alanine Aminotransferase 27 U/L (7-52); Albumin Globulin Ratio 1.2 (0.9-2); Albumin Level 3.6 gm/dl (3.4-5.0); Alkaline Phosphatase 99 U/L (34-104); Anion Gap 8 (3-11); Aspartate Aminotransferase 23 U/L (13-39); BUN Creatinine Ratio 19.1 (10-20); Bilirubin,Total 0.5 mg/dl (0.2-1.0); Blood Urea Nitrogen 40 mg/dl (6-23); Calcium 8.6 mg/dl (8.5-10.1); Carbon Dioxide 33 mmol/L (21-32); Chloride 92 mmol/L (98-107); Est GFR (African American) 24.9 ml/min; Est GFR (Non-African American) 21.5 ml/min; Globulin 2.9 gm/dl (2.5-4.0); Glucose 96 mg/dl (70-99(Fasting)); Potassium 3.3 mmol/L (3.5-5.1); Sodium 133 mmol/L (136-145); Total Protein 6.5 gm/dl (6.0-8.3)
[2022-03-05] MEDS ORDERED: MoRPHine SULFATE 4 MG/ML 1 ML CARP\\VIAL IV STA (21:49)
[2022-03-05] MEDS ORDERED: ONDANSETRON INJ 2 MG/ML 2 ML VIAL IV STA (21:49)
[2022-03-05] MEDS ORDERED: SODIUM CHLORIDE 0.9% 1000ML 1,000 ML IV ONE (21:49)
--- NOTE | 2022-03-05 21:49 | Emergency Department Note ---
Impression & Plan HANNAH (acute kidney injury), Pleural effusion, bilateral, Recurrent falls, Closed rib fracture, Leukocytosis ED Provider Note NAME: WARREN GUZMAN AGE: 81 SEX: F : 1940 ARRIVES VIA: Ambulance INFORMANT: Patient ED PROVIDER(S): Tapan Mendez DO CHIEF COMPLAINT: HANNAH HPI: Patient is an 81-year-old female who presents ER following being referred in by PCP. She has a history of ambulatory dysfunction, pleural effusions, venous insufficiency, LVH, hypertension, CKD and recent diagnosis of a bladder mass who presents ER. She fell on Wednesday and was found to have a rib fracture. This was diagnosed at an outside facility. She comes in today as she follow-up with her PCP and blood work which showed HANNAH. She notes right chest wall pain. No shortness of breath. No cough or congestion. No belly pain. No dysuria, urgency, or frequency. She notes hematuria has been her urine for over a week and when she fell they discovered a bladder mass. ROS: See above HPI for pertinent positives & negatives. A total of 10 systems reviewed and were otherwise negative. PAST MEDICAL HISTORY:See Below PAST SURGICAL HISTORY:See Below FAMILY HISTORY:See Below SOCIAL HISTORY:See Below HOME MEDICATIONS:See Below ALLERGIES:See Below VITALS:See Below PHYSICAL EXAMINATION: GENERAL: Sitting up in bed, alert, well appearing, well nourished, no distress, non-toxic EYE EXAM: normal conjunctiva. OROPHARYNX: no exudate, no erythema, lips, buccal mucosa, and tongue normal and mucous membranes are moist NECK: supple, no nuchal rigidity, no adenopathy, non-tender CHEST: Tenderness over the right chest wall LUNGS: Clear to auscultation. Normal chest wall mechanics HEART: no murmurs, S1 normal and S2 normal ABDOMEN: abdomen soft, non-tender, normo-active bowel sounds, no masses, no rebound or guarding. UPPER EXTREMITIES: upper extremities are grossly normal. LOWER EXTREMITIES: No pitting edema. NEURO EXAM: Normal sensorium, cranial nerves II-XII grossly intact, normal speech, no gross weakness of arms, no gross weakness of legs. MEDICAL DECISION MAKING: Patient is an 81-year-old female who presents ER referred in by PCP. IV was established blood work was obtained. Labs show leukocytosis of 16,000. Mild anemia at 11.. The white count secondary to the rib fractures and right chest wall pain. Mild hypokalemia 3.3. BMP with a creatinine of 2 up from baseline of 1. LFTs was unremarkable. COVID was negative. Rocephin given as urine was not obtained and still not obtained upon admission. Chest x-ray showed pleural effusions but does show a right rib fracture. Patient was given morphine updated bedside and admitted for further work-up. She was also given IV fluids. Triage Nursing notes reviewed. Limited review of prior medical records performed Vital Signs: reviewed and remarkable for no significant abnormalities Differential diagnosis: Infection, dehydration, metabolic abnormality, hypo/hyperglycemia, electrolyte disturbance, anemia, hypoxia, cardiac sources, intracerebral event, toxicologic, neurologic, as well as other pathologies. ER treatment provided: See below Diagnostics interpreted by me: ECG: none Cardiac Monitoring: An order was placed for continuous cardiac monitoring. The monitor shows a rate of 70 with sinus rhythm. Laboratory studies: As stated above and show below. Imaging studies: As described above Consultation(s): Discussed with the hospitalist for further evaluation Procedures: none Critical Care: None Past Med/Surg History Medical History (Updated 03/06/22 @ 00:17 by Tapan Mendez DO) Anemia Anxiety Chronic anticoagulation Chronic kidney disease, stage III (moderate) Closed hip fracture Cystic thyroid nodule Depression Diaphragmatic hernia Diastolic dysfunction Disc degeneration, lumbar Diverticulosis Fall Fracture of greater trochanter of right femur Fracture, tibia and fibula, proximal GERD without esophagitis Grief Loss of spouse August 2018 Hematoma of right lower extremity Hypercholesterolemia Hypertension Lumbar spinal stenosis LVH (left ventricular hypertrophy) Macular degeneration Mitral regurgitation MODERATE Osteoarthritis Osteoporosis PAF (paroxysmal atrial fibrillation) Rheumatoid arthritis Right thyroid nodule Scoliosis Urinary incontinence Venous insufficiency of both lower extremities Vitamin D deficiency Surgical History H/O bilateral oophorectomy B/L SALPINGOOPHORECTOMY= 04/12/17= GRADE VIEW 2, MAC 3, ETT 7.[address] [facility] History of adenoidectomy History of cataract surgery RIGHT/LEFT History of hysterectomy (1988) History of lobectomy of thyroid History of repair of hiatal hernia performed at [facility]. History of tonsillectomy History of tooth extraction History of total hip arthroplasty RIGHT Knee arthropathy w/ medial meniscus repair in 10/2017 S/P ORIF (open reduction internal fixation) fracture (~03/2021) Left Hip S/P thyroid surgery right thyroid lobectomy Dr. Thornton 01/06/19 Status post arthroscopic partial medial meniscectomy (11/02/17) R knee Family History Father Coronary heart disease Colorectal cancer Kidney disease Lung disease Mother Coronary heart disease Myocardial infarction Gallbladder disease Sister Diabetes Colorectal cancer Denies family history of Ovarian cancer Prostate cancer Breast cancer Social History Smoking Status: Never smoker Second Hand Exposure: Yes; Hx Alcohol Use: Yes Alcohol type: beer Alcohol Intake Frequency: 4 or More x per/Week Hx Substance Use: No Preferred Language: Danish Communication Ability: Effective Visual Impairment: No Limitations Hearing Ability: Use of Hearing Aid Application Integration Engineer Required: No Beliefs That Will Affect Care: None marital status: / marital status details: passed August 2018 Current Living Situation: Family Current Living Situation Comment: with daughter current occupational status: retired 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 How many Children do You have: 2 Feels Safe at Home: Yes Childhood Exposure to Second-Hand Smoke: No Diet Comment: regular caffeine: Yes (1/2 cup a day) during the past year weight has: decreased > 10 lbs Dental Care, Regularly: Yes Physical Activity Frequency: Daily Seatbelt Use: always Sunscreen Use: No Assistive Devices: Bedside Commode, Walker and Wheelchair Allergies Allergies Allergy/AdvReac Type Severity Reaction Status Date / Time No Known Allergies Allergy Verified 02/03/22 09:04 Home Meds Home Medications Medication Instructions Recorded Confirmed bpdnrnxm-szx-nwems acid 0.4 1 tab PO DAILY 09/10/20 03/05/22 mg-lycopene 300 mcg-lutein 250 mcg tablet (Centrum Silver) acetaminophen 500 mg tablet 500 mg PO Q6H PRN Pain 08/06/21 03/05/22 (Tylenol Extra Strength) diphenhydramine 25 1 tab PO HS PRN Pain 08/06/21 03/05/22 mg-acetaminophen 500 mg tablet (Tylenol PM Extra Strength) vitamins A,C,P-xdzy-ulqaiv 14,320 1 cap PO BID 08/06/21 03/05/22 unit-226 mg-200 unit capsule (PreserVision AREDS) potassium chloride 20 mEq 20 meq PO BID 03/05/22 03/05/22 tablet,extended release(part/cryst) Previous Rx's Medication Instructions Recorded omeprazole 40 mg capsule,delayed 40 mg PO QAM #90 caps 08/26/21 release metoprolol succinate 25 mg 25 mg PO QAM #30 tabs 10/04/21 tablet,extended release 24 hr amiodarone 200 mg tablet 200 mg PO BID #60 tabs 02/03/22 apixaban 5 mg tablet (Eliquis) 2.5 mg PO BID #60 tabs 02/03/22 duloxetine 60 mg capsule,delayed 60 mg PO QAM #90 caps 02/03/22 release metoclopramide HCl 5 mg tablet 5 mg PO QID #30 tabs 02/03/22 metolazone 2.5 mg tablet 2.5 mg PO DAILY #15 tabs 02/03/22 tramadol 50 mg tablet 50 mg PO BID PRN pain (scale score 02/03/22 7-10) #60 tabs furosemide 20 mg tablet 20 mg PO DAILY 90 days #90 tabs 02/18/22 magnesium oxide 400 mg (241.3 mg 400 mg PO BID #180 tabs 02/19/22 magnesium) tablet ferrous sulfate 325 mg (65 mg 325 mg PO DAILY #90 tabs 02/23/22 iron) tablet (Iron (ferrous sulfate)) Results & Data (ED) Vital Signs Vital Signs - 24 hr 03/05/22 19:16 03/05/22 21:35 Temperature 36.8 C Temperature Source Temporal Artery Scan Pulse Rate 64 Pulse Rate [Apical] 66 Pulse Rhythm Regular Pulse Rhythm [Apical] Regular Pulse Strength Normal Pulse Strength [Apical] Normal Respiratory Rate 18 18 Respiratory Effort / Characteristics Non-Labored Spontaneous Non-Labored Spontaneous Respiratory Depth Normal Normal Respiratory Pattern Regular Regular Blood Pressure 101/64 Blood Pressure [Right Arm] 122/62 Blood Pressure Mean 76 Blood Pressure Mean [Right Arm] 82 Blood Pressure Position Sitting Blood Pressure Position [Right Arm] Lying Pulse Oximetry 97 96 Oxygen Delivery Method Room Air Sepsis Recent Fever Within 48 Hours No Sepsis New/Unexplained Change in Mental Status N/A Sepsis Action Taken by Nursing No Action Required Laboratory Data Result diagrams: 03/05/22 19:30 03/05/22 19:30 Lab Results 03/05/22 03/05/22 03/05/22 Range/Units 19:30 19:30 21:33 WBC 16.28 H (4.8-10.8) K/ul RBC 3.40 L (3.93-5.22) M/uL Hgb 11.3 L (12.0-16.0) g/dl Hct 34.7 (34.1-44.9) % MCV 102.1 H (80.0-100.0) fL MCH 33.2 (25.0-34.0) pg MCHC 32.6 (32.0-36.0) g/dL RDW Std Deviation 53.5 H (36.4-46.3) fL RDW Coeff of Tyra 14.4 (11.5-14.5) % Plt Count 242 (130-400) K/uL MPV 10.1 (9.4-12.3) fL Immature Gran % (Auto) 0.4 % Neut % (Auto) 80.7 % Lymph % (Auto) 10.8 % [facility] % (Auto) 6.7 % Eos % (Auto) 1.0 % Baso % (Auto) 0.4 % Neut # (Auto) 13.14 H (1.4-6.5) K/uL Lymph # (Auto) 1.76 (1.2-3.4) K/uL [facility] # (Auto) 1.09 H (0.24-0.82) K/uL Eos # (Auto) 0.16 (0-0.50) K/uL Baso # (Auto) 0.07 (0-0.2) K/uL Immature Gran # (Auto) 0.06 H (0.00-0.02) K/uL Sodium 133 L (136-145) mmol/L Potassium 3.3 L (3.5-5.1) mmol/L Chloride 92 L (98-107) mmol/L Carbon Dioxide 33 H (21-32) mmol/L Anion Gap 8 (3-11) BUN 40 H (6-23) mg/dl Creatinine 2.09 H (0.6-1.2) mg/dl Est Cr Clr Drug Dosing Not Reportable Est GFR ( Amer) 24.9 ml/min Est GFR (Non-Af Amer) 21.5 ml/min BUN/Creatinine Ratio 19.1 (10-20) Glucose 96 (70-99(Fasting)) mg/dl Calcium 8.6 (8.5-10.1) mg/dl Total Bilirubin 0.5 (0.2-1.0) mg/dl AST 23 (13-39) U/L ALT 27 (7-52) U/L Alkaline Phosphatase 99 (34-104) U/L Total Protein 6.5 (6.0-8.3) gm/dl Albumin 3.6 (3.4-5.0) gm/dl Globulin 2.9 (2.5-4.0) gm/dl Albumin/Globulin Ratio 1.2 (0.9-2) SARS-CoV-2, RNA, NAAT NEGATIVE (NEGATIVE) Administered Medications Discontinued Medications Sodium Chloride (Nss 1000ml) 1,000 mls @ 999 mls/hr IV .Q1H1M ONE Stop: 03/05/22 22:49 Last Infusion: 03/05/22 23:47 Dose: 0 mls/hr Documented By: Admin: 03/05/22 22:29 Dose: 999 mls/hr Documented By: CARINA Ceftriaxone Sodium (Rocephin) 2,000 mg in 70 mls @ 140 mls/hr IV NOW STA Stop: 03/05/22 22:21 Last Infusion: 03/05/22 23:01 Dose: 0 mls/hr Documented By: Admin: 03/05/22 22:30 Dose: 140 mls/hr Documented By: CARINA Morphine Sulfate (Morphine Sulfate 4 Mg/Ml 1 Ml Carp\Vial) 4 mg IV NOW STA Stop: 03/05/22 21:50 Last Admin: 03/05/22 22:30 Dose: 4 mg Documented By: CARINA Ondansetron HCl (Ondansetron Inj 2 Mg/Ml 2 Ml Vial) 4 mg IV NOW STA Stop: 03/05/22 21:50 Last Admin: 03/05/22 22:30 Dose: 4 mg Documented By: CARINA Imaging Data Radiologist's Impression: Chest X-Ray 03/05/22 19:20 SINGLE VIEW CHEST CLINICAL HISTORY: Unspecified illness FINDINGS: An AP, portable, upright chest radiograph is compared to study dated 11/02/2021. Correlation is made with chest CT dated 09/30/2021. The examination is degraded by portable technique and patient rotation. The heart is enlarged noting atherosclerotic calcification of the thoracic aorta. The pulmonary vasculature is noncongested. Chronic interstitial thickening similar to previous. There are layering pleural effusions with dependent consolidation. No pneumothorax is seen. The skeletal structures are osteopenic. There are numerous healed bilateral rib fractures. Degenerative change and scoliosis is noted in the thoracic spine. IMPRESSION: 1. Cardiomegaly without radiographic evidence of congestive failure. 2. Layering pleural effusions with dependent consolidation. ACT 112: Negative or not required by law. Electronically signed by: Semaj Luong M.D. 03/05/2022 7:44 PM Discharge Plan Visit Data Chief Complaint: Abnormal Labs/Diagnostic Testing Stated Complaint: abnormal lab values ED Provider: Tapan Mendez Discharge Problem: HANNAH (acute kidney injury), Pleural effusion, bilateral, Recurrent falls, Closed rib fracture, Leukocytosis
[2022-03-05] MEDS ORDERED: cefTRIAXone SODIUM 2,000 MG/70 ML BAG IV STA (21:52)
--- NOTE | 2022-03-05 22:48 | History & Physical Report ---
Date of Service March 05, 2022 Assessment & Plan (1) HANNAH (acute kidney injury): Plan: BUN of 40 and Cr of 2.09, increased from 12.6 and 0.91, respectively on 02/02/22. Mild hypokalemia with K of 3.3. Patient reports she is urinating without difficulty -Admit to medical -Gentle IVF - LR at 80mL/hr x 1 liter - cautious fluids as patient's CXR already with pleural effusions present -Check urine Na and Cr -Check CK -Check UA -Renal dosing where needed -Avoid nephrotoxic agents (2) Closed rib fracture: Plan: Pain control with Tylenol and Morphine PRN Incentive spirometry (3) PAF (paroxysmal atrial fibrillation): Plan: Rate controlled. Patient anticoagulated on Apixaban -Continue Amiodarone -Continue Metoprolol -Continue Apixaban (4) Hypertension: Plan: Blood pressure appropriately controlled -Continue Metoprolol -Monitor (5) Depression: Plan: Chronic. Well controlled on home medications -Continue Cymbalta History of Present Illness Chief Complaint: laboratory abnormalities Primary Care Provider: DO Brionna Perdomo Wei is an 81yo female with history of HTN, HLP, PAF on Apixaban anticoagulation presenting with abnormal laboratory findings. Patient reports falling in her home 3 days ago. She was attempting to transfer from her wheelchair to her recliner and fell onto the floor. She hit the coffee table with her left ribs and fell to the floor. She was unable to get up for approximately 30 minutes. She denies head trauma or LOC. She was seen in the hospital at [facility] and was told that she has several rib fractures. She was seen by her PCP today and had some blood work completed which revealed HANNAH therefore she was told to come to the ER. Patient does report some pain in her left side, specifically with movement and deep breaths. She has been trying to take deep breaths. She did note some bloody urine after she fell. Reportedly found to have a bladder mass during her workup at [facility]. She has an appointment with Urology on 03/10/22 for workup of this. Patient has no additional complaints. She denies fever, chills, cough, SOB, abdominal pain, nausea, vomiting, diarrhea or constipation. No additional urinary complaints. Patient afebrile, HD stable in the ER. ER Course: KCl 20mEq, LR at 80mL/hr Ceftriaxone Zofran Morphine NSS x 1L Allergies Allergy/AdvReac Type Severity Reaction Status Date / Time No Known Allergies Allergy Verified 02/03/22 09:04 Home Medications Medication Instructions Recorded Confirmed Type xwbulzul-rpw-jhzbd acid 0.4 1 tab PO DAILY 09/10/20 03/05/22 History mg-lycopene 300 mcg-lutein 250 mcg tablet (Centrum Silver) acetaminophen 500 mg tablet 500 mg PO Q6H PRN Pain 08/06/21 03/05/22 History (Tylenol Extra Strength) diphenhydramine 25 1 tab PO HS PRN Pain 08/06/21 03/05/22 History mg-acetaminophen 500 mg tablet (Tylenol PM Extra Strength) vitamins A,C,D-asub-iuphxj 14,320 1 cap PO BID 08/06/21 03/05/22 History unit-226 mg-200 unit capsule (PreserVision AREDS) omeprazole 40 mg capsule,delayed 40 mg PO QAM #90 caps 08/26/21 03/05/22 Rx release metoprolol succinate 25 mg 25 mg PO QAM #30 tabs 10/04/21 03/05/22 Rx tablet,extended release 24 hr amiodarone 200 mg tablet 200 mg PO BID #60 tabs 02/03/22 03/05/22 Rx apixaban 5 mg tablet (Eliquis) 2.5 mg PO BID #60 tabs 02/03/22 03/05/22 Rx duloxetine 60 mg capsule,delayed 60 mg PO QAM #90 caps 02/03/22 03/05/22 Rx release metoclopramide HCl 5 mg tablet 5 mg PO QID #30 tabs 02/03/22 03/05/22 Rx metolazone 2.5 mg tablet 2.5 mg PO DAILY #15 tabs 02/03/22 03/05/22 Rx tramadol 50 mg tablet 50 mg PO BID PRN pain (scale score 02/03/22 03/05/22 Rx 7-10) #60 tabs furosemide 20 mg tablet 20 mg PO DAILY 90 days #90 tabs 02/18/22 03/05/22 Rx magnesium oxide 400 mg (241.3 mg 400 mg PO BID #180 tabs 02/19/22 03/05/22 Rx magnesium) tablet ferrous sulfate 325 mg (65 mg 325 mg PO DAILY #90 tabs 02/23/22 03/05/22 Rx iron) tablet (Iron (ferrous sulfate)) potassium chloride 20 mEq 20 meq PO BID 03/05/22 03/05/22 History tablet,extended release(part/cryst) Past Med/Surg History Medical History (Updated 03/06/22 @ 00:17 by Tapan Mendez DO) Anemia Anxiety Chronic anticoagulation Chronic kidney disease, stage III (moderate) Closed hip fracture Cystic thyroid nodule Depression Diaphragmatic hernia Diastolic dysfunction Disc degeneration, lumbar Diverticulosis Fall Fracture of greater trochanter of right femur Fracture, tibia and fibula, proximal GERD without esophagitis Grief Loss of spouse August 2018 Hematoma of right lower extremity Hypercholesterolemia Hypertension Lumbar spinal stenosis LVH (left ventricular hypertrophy) Macular degeneration Mitral regurgitation MODERATE Osteoarthritis Osteoporosis PAF (paroxysmal atrial fibrillation) Rheumatoid arthritis Right thyroid nodule Scoliosis Urinary incontinence Venous insufficiency of both lower extremities Vitamin D deficiency Surgical History H/O bilateral oophorectomy B/L SALPINGOOPHORECTOMY= 04/12/17= GRADE VIEW 2, MAC 3, ETT 7.5 AT [facility] History of adenoidectomy History of cataract surgery RIGHT/LEFT History of hysterectomy (1988) History of lobectomy of thyroid History of repair of hiatal hernia performed at [facility]. History of tonsillectomy History of tooth extraction History of total hip arthroplasty RIGHT Knee arthropathy w/ medial meniscus repair in 10/2017 S/P ORIF (open reduction internal fixation) fracture (~03/2021) Left Hip S/P thyroid surgery right thyroid lobectomy Dr. Thornton 01/06/19 Status post arthroscopic partial medial meniscectomy (11/02/17) R knee Family History Father Coronary heart disease Colorectal cancer Kidney disease Lung disease Mother Coronary heart disease Myocardial infarction Gallbladder disease Sister Diabetes Colorectal cancer Denies family history of Ovarian cancer Prostate cancer Breast cancer Social History Smoking Status: Never smoker Second Hand Exposure: Yes; Hx Alcohol Use: Yes Alcohol type: beer Alcohol Intake Frequency: 4 or More x per/Week Hx Substance Use: No Preferred Language: Azeri Communication Ability: Effective Visual Impairment: No Limitations Hearing Ability: Use of Hearing Aid Retail Pharmacy Manager Required: No Beliefs That Will Affect Care: None marital status: / marital status details: passed August 2018 Current Living Situation: Family Current Living Situation Comment: with daughter 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 occupational status: 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 How many Children do You have: 2 Feels Safe at Home: Yes Childhood Exposure to Second-Hand Smoke: No Diet Comment: regular caffeine: Yes (1/2 cup a day) during the past year weight has: decreased > 10 lbs Dental Care, Regularly: Yes Physical Activity Frequency: Daily Seatbelt Use: always Sunscreen Use: No Assistive Devices: Bedside Commode, Walker and Wheelchair Review of Systems Review of Systems: All systems reviewed & are unremarkable except as noted in HPI & below Physical Exam Physical Exam: General: patient resting comfortably, NAD, non-toxic in appearance, AA&O x 4 Skin: warm, dry, intact, no rashes or lesions HEENT: NC/AT, PERRL, EOMI, anicteric sclera, conjunctiva without injection, external ear normal to inspection and nontender, nares patent, moist mucus membranes, dentition intact, no oropharyngeal lesions, neck supple, trachea midline, no LAD, no thyromegaly, no JVD Heart: +S1/S2, regular, no m/r/g Lungs: equal air entry bilaterally, no rales/rhonchi/wheezes Pain left chest. No ecchymosis. Abd: +BS, soft, NT/ND, no masses/organomegaly/ascites Ext: warm, 2+ pulses in UE/LE bilaterally, no clubbing/cyanosis or edema Neuro: nonfocal, patient AA&O x 4, speech intact, no facial droop, moving all extremities on command with equal strength 5/5 Results & Data Results & Data ([facility]) Vital Signs (Past 12 Hours) Vital Signs Temp Pulse Pulse Resp BP BP Pulse Ox 03/05/22 21:35 66 18 122/62 96 03/05/22 19:16 36.8 C 64 18 101/64 97 O2 Del Method 03/05/22 21:35 Room Air 03/05/22 19:16 Laboratory Results Laboratory Results WBC 16.28 K/ul (4.8-10.8) H 03/05/22 19:30 RBC 3.40 M/uL (3.93-5.22) L 03/05/22 19: Hgb 11.3 g/dl (12.0-16.0) L 03/05/22: Hct 34.7 % (34.1-44.9) 03/05/22 19: MCV 102.1 fL (80.0-100.0) H 03/05/22: MCH 33.2 pg (25.0-34.0) 03/05/22: MCHC 32.6 g/dL (32.0-36.0) 03/05/22: RDW Std Deviation 53.5 fL (36.4-46.3) H 03/05/22: RDW Coeff of Tyra 14.4 % (11.5-14.5) 03/05/22: Plt Count 242 K/uL (130-400) 03/05/22: MPV 10.1 fL (9.4-12.3) 03/05/22 19: Immature Gran % (Auto) 0.4 % 03/05/22: Neut % (Auto) 80.7 % 03/05/22: Lymph % (Auto) 10.8 % 03/05/22: [facility] % (Auto) 6.7 % 03/05/22: Eos % (Auto) 1.0 % 03/05/22: Baso % (Auto) 0.4 % 03/05/22: Neut # (Auto) 13.14 K/uL (1.4-6.5) H 03/05/22 19: Lymph # (Auto) 1.76 K/uL (1.2-3.4) 03/05/22: [facility] # (Auto) 1.09 K/uL (0.24-0.82) H 03/05/22: Eos # (Auto) 0.16 K/uL (0-0.50) 03/05/22 19: Baso # (Auto) 0.07 K/uL (0-0.2) 03/05/22 19: Immature Gran # (Auto) 0.06 K/uL (0.00-0.02) H 03/05/22 19:30 Sodium 133 mmol/L (136-145) L 03/05/22 19:30 Potassium 3.3 mmol/L (3.5-5.1) L 03/05/22 19:30 Chloride 92 mmol/L (98-107) L 03/05/22 19:30 Carbon Dioxide 33 mmol/L (21-32) H 03/05/22 19:30 Anion Gap 8 (3-11) 03/05/22 19:30 BUN 40 mg/dl (6-23) H 03/05/22 19:30 Creatinine 2.09 mg/dl (0.6-1.2) H 03/05/22 19:30 Est Cr Clr Drug Dosing Not Reportable 03/05/22:30 Est GFR ( Amer) 24.9 ml/min 03/05/22 19:30 Est GFR (Non-Af Amer) 21.5 ml/min 03/05/22:30 BUN/Creatinine Ratio 19.1 (10-20) 03/05/22 19:30 Glucose 96 mg/dl (70-99(Fasting)) 03/05/22 19:30 Calcium 8.6 mg/dl (8.5-10.1) 03/05/22:30 Phosphorus 4.9 mg/dl (2.5-4.9) 03/05/22 19:30 Magnesium 2.7 mg/dl (1.7-2.4) H 03/05/22 19:30 Total Bilirubin 0.5 mg/dl (0.2-1.0) 03/05/22 19:30 AST 23 U/L (13-39) 03/05/22 19:30 ALT 27 U/L (7-52) 03/05/22 19:30 Alkaline Phosphatase 99 U/L (34-104) 03/05/22 19:30 Total Creatine Kinase 41 U/L (26-192) 03/05/22 19:30 Total Protein 6.5 gm/dl (6.0-8.3) 03/05/22 19:30 Albumin 3.6 gm/dl (3.4-5.0) 03/05/22 19:30 Globulin 2.9 gm/dl (2.5-4.0) 03/05/22 19:30 Albumin/Globulin Ratio 1.2 (0.9-2) 03/05/22 19:30 SARS-CoV-2, RNA, NAAT NEGATIVE (NEGATIVE) 03/05/22 21:33 Impressions Chest X-Ray 03/05/22 19:20 SINGLE VIEW CHEST CLINICAL HISTORY: Unspecified illness FINDINGS: An AP, portable, upright chest radiograph is compared to study dated 11/02/2021. Correlation is made with chest CT dated 09/30/2021. The examination is degraded by portable technique and patient rotation. The heart is enlarged noting atherosclerotic calcification of the thoracic aorta. The pulmonary vasculature is noncongested. Chronic interstitial thickening similar to previous. There are layering pleural effusions with dependent consolidation. No pneumothorax is seen. The skeletal structures are osteopenic. There are numerous healed bilateral rib fractures. Degenerative change and scoliosis is noted in the thoracic spine. IMPRESSION: 1. Cardiomegaly without radiographic evidence of congestive failure. 2. Layering pleural effusions with dependent consolidation. ACT 112: Negative or not required by law. Electronically signed by: Semaj Luong M.D. 03/05/2022 7:44 PM PG Care Time/CCT Total # of Minutes Spent Total Time Spent with Patient: Total time spent is greater than 50% in coordination of care (as documented) at patient's floor/unit and/or counseling patient: Coding Level of Care Code 10614 Initial Inpt Care Lvl 3 Diagnoses HANNAH (acute kidney injury) N17.9 Closed rib fracture S22.39XA PAF (paroxysmal atrial fibrillation) I48.0 Hypertension I10 Depression F32.9
[2022-03-06] MEDS ORDERED: ONDANSETRON INJ 2 MG/ML 2 ML VIAL IV PRN (00:10)
[2022-03-06] MEDS ORDERED: LACTATED RINGER'S 1,000 ML IV SCH (00:10)
[2022-03-06] MEDS ORDERED: POTASSIUM CHLORIDE CRTAB 20 MEQ TABCR PO STA (00:10)
[2022-03-06] MEDS ORDERED: DOCUSATE SODIUM 100 MG CAP PO PRN (00:10)
[2022-03-06 00:42] LABS: Magnesium 2.7 mg/dl (1.7-2.4); Phosphorus 4.9 mg/dl (2.5-4.9)
[2022-03-06] MEDS ORDERED: MoRPHine SULFATE 4 MG/ML 1 ML CARP\\VIAL IV PRN (00:54)
[2022-03-06] MEDS ORDERED: Patient's HEIGHT &/or WEIGHT Needed SCH (01:15)
[2022-03-06] MEDS: ACETAMINOPHEN 325 MG TAB PO PRN (06:02)
[2022-03-06] MEDS: AMIODARONE 200 MG TAB PO SCH ×2 (08:03→20:14)
[2022-03-06] MEDS: METOPROLOL SUCC 25MG EXT REL TAB PO SCH (08:03)
[2022-03-06] MEDS: DULoxetine HCL 60 MG CAP PO SCH (08:03)
[2022-03-06] MEDS: METOCLOPRAMIDE HCL 5 MG TABLET PO SCH ×4 (08:03→20:13)
[2022-03-06] MEDS: PANTOprazole 40 MG TAB PO SCH (08:04)
[2022-03-06] MEDS: APIXABAN 2.5 MG TAB PO SCH ×2 (08:04→20:14)
[2022-03-06 09:31] LABS: Hematocrit (blood only) 32.3 % (34.1-44.9); Hemoglobin 10.6 g/dl (12.0-16.0); Mean Corpuscular Hemoglobin 33.7 pg (25.0-34.0); Mean Corpuscular Hgb Conc 32.8 g/dL (32.0-36.0); Mean Corpuscular Volume 102.5 fL (80.0-100.0); Mean Platelet Volume 10.1 fL (9.4-12.3); Platelet Count 209 K/uL (130-400); RDW Coefficient of Variation 14.2 % (11.5-14.5); RDW Standard Deviation 53.5 fL (36.4-46.3); Red Blood Count 3.15 M/uL (3.93-5.22); White Blood Count 11.55 K/ul (4.8-10.8)
[2022-03-06 09:33] LABS: Appearance Urine Cloudy (Clear); Bilirubin Urine Negative (Negative); Blood Urine 3+ (Negative); Color Urine Brown; Glucose Urine UA Negative (Negative); Ketones Urine Negative (Negative); Leukocyte Esterase Urine Trace (Negative); Nitrite Urine Positive (Negative); Protein Urine 2+ (Negative); Specific Gravity Urine 1.015 (1.000-1.030); Urobilinogen Urine Negative (Negative)
[2022-03-06 09:43] LABS: Epithelial Cell Urine 20-30 /lpf (0-5); RBC Urine >30 /hpf (0-4); WBC Urine >30 /hpf (0-5)
[2022-03-06 09:44] LABS: Bacteria Urine 3+ (Negative)
[2022-03-06 09:48] LABS: Hyaline Casts Urine 0-5 /lpf (0-5)
[2022-03-06 09:51] LABS: Creatinine Urine Random 66.1 mg/dl
[2022-03-06] MEDS: MoRPHine SULFATE 2 MG/ML CARP IV PRN ×2 (10:30→18:26)
[2022-03-06 10:38] LABS: BUN Creatinine Ratio 21.3 (10-20); Calcium 8.4 mg/dl (8.5-10.1); Creatinine Clr Calc Pharmacy 21.1 ml/min; Est GFR (African American) 35.8 ml/min; Est GFR (Non-African American) 30.9 ml/min; Potassium 3.7 mmol/L (3.5-5.1)
--- NOTE | 2022-03-06 11:32 | Electrocardiogram Report ---
Test Reason : Blood Pressure : / mmHG Vent. Rate : 064 BPM Atrial Rate : 064 BPM P-R Int : 228 ms QRS Dur : 092 ms QT Int : 444 ms P-R-T Axes : 083 -24 179 degrees QTc Int : 458 ms Sinus rhythm with 1st degree A-V block Abnormal ECG When compared with ECG of 02-NOV-2021 21:27, Sinus rhythm has replaced Wide QRS rhythm Confirmed by Joe Schreiber ([id number]) on 03/06/2022 11:31:36 AM Referred By: REFERRED SELF Confirmed By:Hernan Schreiber
--- NOTE | 2022-03-06 12:17 | Ultrasound Report ---
RENAL ULTRASOUND CLINICAL HISTORY: Acute renal failure. COMPARISON STUDY: CT of the abdomen and pelvis February 18, 2019. TECHNIQUE: Sonography of the kidneys and the urinary bladder was performed. FINDINGS: The right kidney measures 11.3 cm in maximal dimension and the left measures 9.6 cm. There is no hydronephrosis. Renal echogenicity, size and cortical thickness are normal. There is trace righ t perinephric fluid. There is a small amount of mobile dependent material within the bladder. Uretera l jets were not identified. No renal calculi are identified. IMPRESSION: 1. No hydronephrosis. 2. Small amount of mobile dependent material within the bladder. This could reflect clot or debris an d could be correlated with urinalysis. ACT 112: Negative or not required by law. Electronically signed by: Osmel Srivastava M.D. 03/06/2022 12:16 PM
--- NOTE | 2022-03-06 21:29 | Hospitalist Progress Note ---
Date of Service March 06, 2022 Assessment & Plan (1) HANNAH (acute kidney injury): Plan: BUN of 40 and Cr of 2.09, increased from 12.6 and 0.91, respectively on 02/02/22. Mild hypokalemia with K of 3.3. Patient reports she is urinating without difficulty -Admit to medical -Gentle IVF - LR at 80mL/hr x 1 liter - cautious fluids as patient's CXR already with pleural effusions present -appears to be improving. w-will monitor. -Renal dosing where needed -Avoid nephrotoxic agents (2) Closed rib fracture: Plan: Pain control with Tylenol and Morphine PRN Incentive spirometry will add lidocaine patch. (3) PAF (paroxysmal atrial fibrillation): Plan: Rate controlled. Patient anticoagulated on Apixaban -Continue Amiodarone -Continue Metoprolol -Continue Apixaban (4) Hypertension: Plan: Blood pressure appropriately controlled -Continue Metoprolol -Monitor (5) Depression: Plan: Chronic. Well controlled on home medications -Continue Cymbalta Admission and Anticipated Discharge Date Admission Date: March 05, 2022 Subjective 81 yo female reports having chest pain from her rib fracture. Review of Systems Review of Systems: All systems reviewed & are unremarkable except as noted in HPI & below Physical Exam Physical Exam: General: patient resting comfortably, NAD, non-toxic in appearance, AA&O x 4 Skin: warm, dry, intact, no rashes or lesions HEENT: NC/AT, PERRL, EOMI, anicteric sclera, conjunctiva without injection, external ear normal to inspection and nontender, nares patent, moist mucus membranes, dentition intact, no oropharyngeal lesions, neck supple, trachea midline, no LAD, no thyromegaly, no JVD Heart: +S1/S2, regular, no m/r/g Lungs: equal air entry bilaterally, no rales/rhonchi/wheezes Pain left chest. No ecchymosis. Abd: +BS, soft, NT/ND, no masses/organomegaly/ascites Ext: warm, 2+ pulses in UE/LE bilaterally, no clubbing/cyanosis or edema Neuro: nonfocal, patient AA&O x 4, speech intact, no facial droop, moving all extremities on command with equal strength 5/5 Results & Data Results & Data ([place]) Vital Signs (Past 12 Hours) Vital Signs Temp Pulse Pulse Resp BP Pulse Ox O2 Del Method 03/06/22 20:14 36.9 C 75 18 118/68 94 Room Air 03/06/22 15:02 36.7 C 83 16 111/67 92 Room Air 03/06/22 12:11 36.6 C 64 18 102/56 L 93 Room Air PG Care Time/CCT Total # of Minutes Spent Total Time Spent with Patient: Total time spent is greater than 50% in coordination of care (as documented) at patient's floor/unit and/or counseling patient: Coding Level of Care Code 43524 Subseq Hosp Care Lvl 2 Diagnoses HANNAH (acute kidney injury) N17.9 Closed rib fracture S22.39XA PAF (paroxysmal atrial fibrillation) I48.0 Hypertension I10 Depression F32.9 Time Spent (min) 25
[2022-03-07] MEDS: MoRPHine SULFATE 2 MG/ML CARP IV PRN ×3 (00:56→20:30)
[2022-03-07] MEDS: DULoxetine HCL 60 MG CAP PO SCH (08:39)
[2022-03-07] MEDS: AMIODARONE 200 MG TAB PO SCH ×2 (08:39→20:28)
[2022-03-07] MEDS: METOCLOPRAMIDE HCL 5 MG TABLET PO SCH ×4 (08:39→20:27)
[2022-03-07] MEDS: APIXABAN 2.5 MG TAB PO SCH ×2 (08:39→20:28)
[2022-03-07] MEDS: POLYETHYLENE (MIRALAX) 17 GM PACK PO SCH (08:40)
[2022-03-07] MEDS: DOCUSATE SODIUM/SENNA 50/8.6MG TAB PO SCH (08:40)
[2022-03-07] MEDS: METOPROLOL SUCC 25MG EXT REL TAB PO SCH (08:40)
[2022-03-07] MEDS: LIDOCAINE 5% 1 PATCH TD SCH (08:40)
[2022-03-07] MEDS: PANTOprazole 40 MG TAB PO SCH (08:40)
[2022-03-07 09:16] LABS: Hematocrit (blood only) 32.9 % (34.1-44.9); Hemoglobin 10.6 g/dl (12.0-16.0); Mean Corpuscular Hemoglobin 33.1 pg (25.0-34.0); Mean Corpuscular Hgb Conc 32.2 g/dL (32.0-36.0); Mean Corpuscular Volume 102.8 fL (80.0-100.0); Mean Platelet Volume 9.8 fL (9.4-12.3); Platelet Count 213 K/uL (130-400); RDW Coefficient of Variation 14.1 % (11.5-14.5); RDW Standard Deviation 53.7 fL (36.4-46.3); White Blood Count 7.96 K/ul (4.8-10.8)
[2022-03-07 09:53] LABS: Calcium 8.9 mg/dl (8.5-10.1); Creatinine Clr Calc Pharmacy 35.2 ml/min; Est GFR (African American) 66.3 ml/min; Est GFR (Non-African American) 57.2 ml/min; Potassium 3.5 mmol/L (3.5-5.1)
[2022-03-07] MEDS ORDERED: COUGH DROP (SUGAR FREE) LOZ 24 LOZ/1 BOX BUCCAL PRN (20:58)
--- NOTE | 2022-03-07 23:21 | Hospitalist Progress Note ---
Date of Service March 07, 2022 Assessment & Plan (1) HANNAH (acute kidney injury): Plan: BUN of 40 and Cr of 2.09, increased from 12.6 and 0.91, respectively on 02/02/22. Mild hypokalemia with K of 3.3. Patient reports she is urinating without difficulty -Admit to medical -Gentle IVF - LR at 80mL/hr x 1 liter - cautious fluids as patient's CXR already with pleural effusions present -appears to be improving. -will monitor. -Renal dosing where needed -Avoid nephrotoxic agents resolved on 03/07 (2) Closed rib fracture: Plan: Pain control with Tylenol and Morphine PRN Incentive spirometry will add lidocaine patch. this appears to have helped with pain. Awaiting input from PT (3) PAF (paroxysmal atrial fibrillation): Plan: Rate controlled. Patient anticoagulated on Apixaban -Continue Amiodarone -Continue Metoprolol -Continue Apixaban (4) Hypertension: Plan: Blood pressure appropriately controlled -Continue Metoprolol -Monitor (5) Depression: Plan: Chronic. Well controlled on home medications -Continue Cymbalta Admission and Anticipated Discharge Date Admission Date: March 05, 2022 Subjective Patient reports her pain has been better controlled. Review of Systems Review of Systems: All systems reviewed & are unremarkable except as noted in HPI & below Physical Exam Physical Exam: General: patient resting comfortably, NAD, non-toxic in appearance, AA&O x 4 Skin: warm, dry, intact, no rashes or lesions HEENT: NC/AT, PERRL, EOMI, anicteric sclera, conjunctiva without injection, external ear normal to inspection and nontender, nares patent, moist mucus membranes, dentition intact, no oropharyngeal lesions, neck supple, trachea midline, no LAD, no thyromegaly, no JVD Heart: +S1/S2, regular, no m/r/g Lungs: equal air entry bilaterally, no rales/rhonchi/wheezes Pain left chest. No ecchymosis. Abd: +BS, soft, NT/ND, no masses/organomegaly/ascites Ext: warm, 2+ pulses in UE/LE bilaterally, no clubbing/cyanosis or edema Neuro: nonfocal, patient AA&O x 4, speech intact, no facial droop, moving all extremities on command with equal strength 5/5 Results & Data Results & Data ([facility]) Vital Signs (Past 12 Hours) Vital Signs Temp Pulse Resp BP BP Pulse Ox O2 Del Method 03/07/22 20:04 36.9 C 69 18 125/69 93 Room Air 03/07/22 15:09 37.1 C 75 16 108/65 92 Room Air PG Care Time/CCT Total # of Minutes Spent Total Time Spent with Patient: Total time spent is greater than 50% in coordination of care (as documented) at patient's floor/unit and/or counseling patient: Coding Level of Care Code 62475 Subseq Hosp Care Lvl 2 Diagnoses HANNAH (acute kidney injury) N17.9 Closed rib fracture S22.39XA PAF (paroxysmal atrial fibrillation) I48.0 Hypertension I10 Depression F32.9
[2022-03-08] MEDS: DOCUSATE SODIUM/SENNA 50/8.6MG TAB PO SCH (08:17)
[2022-03-08] MEDS: APIXABAN 2.5 MG TAB PO SCH (08:17)
[2022-03-08] MEDS: METOCLOPRAMIDE HCL 5 MG TABLET PO SCH ×2 (08:17→11:39)
[2022-03-08] MEDS: PANTOprazole 40 MG TAB PO SCH (08:17)
[2022-03-08] MEDS: LIDOCAINE 5% 1 PATCH TD SCH (08:17)
[2022-03-08] MEDS: AMIODARONE 200 MG TAB PO SCH (08:17)
[2022-03-08] MEDS: DULoxetine HCL 60 MG CAP PO SCH (08:17)
[2022-03-08] MEDS: METOPROLOL SUCC 25MG EXT REL TAB PO SCH (08:17)
[2022-03-08] MEDS: POLYETHYLENE (MIRALAX) 17 GM PACK PO SCH (08:18)
[2022-03-08] MEDS: ACETAMINOPHEN 325 MG TAB PO PRN (08:29)
[2022-03-08 08:52] LABS: Hematocrit (blood only) 29.8 % (34.1-44.9); Hemoglobin 9.8 g/dl (12.0-16.0); Mean Corpuscular Hemoglobin 33.4 pg (25.0-34.0); Mean Corpuscular Hgb Conc 32.9 g/dL (32.0-36.0); Mean Corpuscular Volume 101.7 fL (80.0-100.0); Mean Platelet Volume 9.8 fL (9.4-12.3); Platelet Count 201 K/uL (130-400); RDW Coefficient of Variation 14.1 % (11.5-14.5); RDW Standard Deviation 51.8 fL (36.4-46.3); Red Blood Count 2.93 M/uL (3.93-5.22); White Blood Count 6.76 K/ul (4.8-10.8)
[2022-03-08 09:31] LABS: Calcium 8.7 mg/dl (8.5-10.1); Creatinine Clr Calc Pharmacy 44.2 ml/min; Est GFR (African American) 87.4 ml/min; Est GFR (Non-African American) 75.4 ml/min; Potassium 4.2 mmol/L (3.5-5.1)
--- NOTE | 2022-03-14 23:28 | Discharge Summary ---
Date of Service March 08, 2022 Admission HPI Per Admitting Provider Brionna Carvajal is an 81yo female with history of HTN, HLP, PAF on Apixaban anticoagulation presenting with abnormal laboratory findings. Patient reports falling in her home 3 days ago. She was attempting to transfer from her wheelchair to her recliner and fell onto the floor. She hit the coffee table with her left ribs and fell to the floor. She was unable to get up for approximately 30 minutes. She denies head trauma or LOC. She was seen in the hospital at [place] and was told that she has several rib fractures. She was seen by her PCP today and had some blood work completed which revealed HANNAH t herefore she was told to come to the ER. Patient does report some pain in her left side, specifically with movement and deep breaths. She has been trying to take deep breaths. She did note some bl oody urine after she fell. 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 She has an appointment with Urology on 03/10/22 for workup of this. Patient has no additional complaints. She denies fever, chills, cough, SOB, abdominal pain, nausea, vomiting, diarrhea or constipation. No additional urinary complaints. Patient afebrile, HD stable in the ER. ER Course: KCl 20mEq, LR at 80mL/hr Ceftriaxone Zofran Morphine NSS x 1L Principal Diagnosis HANNAH Discharge Exam General: patient resting comfortably, NAD, non-toxic in appearance, AA&O x 4 Skin: warm, dry, intact, no rashes or lesions HEENT: NC/AT, PERRL, EOMI, anicteric sclera, conjunctiva without injection, external ear normal to inspection and nontender, nares patent, moist mucus membranes, dentition intact, no oropharyngeal lesions, neck supple, trachea midline, no LAD, no thyromegaly, no JVD Heart: +S1/S2, regular, no m/r/g Lungs: equal air entry bilaterally, no rales/rhonchi/wheezes Pain left chest. No ecchymosis. Abd: +BS, soft, NT/ND, no masses/organomegaly/ascites Ext: warm, 2+ pulses in UE/LE bilaterally, no clubbing/cyanosis or edema Neuro: nonfocal, patient AA&O x 4, speech intact, no facial droop, moving all extremities on command with equal strength 08/07 Discharge Data Allergies Allergy/AdvReac Type Severity Reaction Status Date / Time No Known Allergies Allergy Verified 02/03/22 09:04 Consultations 03/05/22 21:49 ED Decision to Admit Stat Ordered Studies 03/06/22 08:29 US Kidney Bladder [US renal/blad retro comp] Routine Hospital Course (1) HANNAH (acute kidney injury): BUN of 40 and Cr of 2.09, increased from 12.6 and 0.91, respectively on 02/02/22. Mild hypokalemia with K of 3.3. Patient reports she is urinating without difficulty -Admit to medical -Gentle IVF - LR at 80mL/hr x 1 liter - cautious fluids as patient's CXR already with pleural effusions present -appears to be improving. -will monitor. -Renal dosing where needed -Avoid nephrotoxic agents resolved on 03/07 (2) Closed rib fracture: Patient is being managed for left closed rib fracture Pain control with Tylenol and Morphine PRN Incentive spirometry will add lidocaine patch. this appears to have helped with pain. PT recommends home health (3) PAF (paroxysmal atrial fibrillation): Rate controlled. Patient anticoagulated on Apixaban -Continue Amiodarone -Continue Metoprolol -Continue Apixaban (4) Hypertension: Blood pressure appropriately controlled -Continue Metoprolol -Monitor (5) Depression: Chronic. Well controlled on home medications -Continue Cymbalta Total Time Total Time Spent Total Time Spent (In Minutes): 35 Discharge Plan Discharge Items Patient Disposition: Home - Home Health Services Reason For Visit: HANNAH Discharge Diagnosis: acute kidney failure Activity: Resume your previous activity Non-emergency contact: Primary Care Provider Call non-emergency contact if: you have any medication questions Follow-up/Referrals: Kimber Prater DO [Primary Care Provider] - 03/17/22 10:20 am Diet: Heart Healthy Addtl Attending Provider Instructions: recommend followup with PCP in 1 week to reassess kindey numbers. Will recommend cutting back your lasix to every other day. Please take first dose tomorrow. Pending Studies at Discharge: No Stand-Alone Forms: [email or web address], Smoking Cessation Medications and DC Order Prescriptions: New sennosides-docusate sodium [Senokot-S] 8.6-50 mg Tablet 1 tab PO QAM Qty: 15 0RF Rx Instructions: stop if stools become too loose lidocaine 5 % Adhesive Patch,Medicated 1 patch transdermal QAM Qty: 15 0RF Rx Instructions: Apply for 12 hours, then remove. Continued PreserVision AREDS [phone] iykf-do-avik capsule 1 cap PO BID diphenhydramine-acetaminophen [Tylenol PM Extra Strength] 25-500 mg tablet 1 tab PO HS PRN (Reason: Pain) omeprazole 40 mg capsule,delayed release(DR/EC) 40 mg PO QAM Qty: 90 1RF magnesium oxide 400 mg (241.3 mg magnesium) tablet 400 mg PO BID Qty: 180 3RF ferrous sulfate [Iron (ferrous sulfate)] 325 mg (65 mg iron) tablet 325 mg PO DAILY Qty: 90 1RF Centrum Silver 0.4-300-250 mg-mcg-mcg tablet 1 tab PO DAILY amiodarone 200 mg tablet 200 mg PO BID Qty: 60 2RF Eliquis 5 mg tablet 2.5 mg PO BID Qty: 60 5RF Hold Instructions: Home Medication placed on hold at Doctor's office metoclopramide HCl 5 mg tablet 5 mg PO QID Qty: 30 0RF metolazone 2.5 mg tablet 2.5 mg PO DAILY Qty: 15 2RF duloxetine 60 mg capsule,delayed release(DR/EC) 60 mg PO QAM Qty: 90 1RF tramadol 50 mg tablet 50 mg PO BID PRN (Reason: pain (scale score 7-10)) Qty: 60 0RF metoprolol succinate 25 mg Tablet Extended Release 24 Hr 25 mg PO QAM Qty: 30 4RF Changed acetaminophen [Tylenol Extra Strength] 500 mg tablet 500 mg PO Q6H Qty: 30 0RF potassium chloride 20 mEq tablet,ER particles/crystals 20 meq PO DAILY Qty: 30 0RF furosemide 20 mg tablet 20 mg PO Q2D 90 Days Qty: 90 1RF Discharge Orders: Discharge Order (Routine); Ordered 03/08/22 Ordered By: Josiah Aguilar Admission Data Admit Date/Time: 03/05/22 22:47 Attending Provider: Josiah Aguilar Admit Provider: Arline Mack Primary Care Provider: Kimber Prater Other Providers: Arline Mack Other Interventions: Discharge Summary Assessment (RN) Last Done: 03/08/22 15:29 Coding Level of Care Code D/C DAY MANAGEMENT >30 MINS Diagnoses HANNAH (acute kidney injury) N17.9 Closed rib fracture S22.39XA PAF (paroxysmal atrial fibrillation) I48.0 Hypertension I10 Depression F32.9
== END 2022-03-08 16:07 | disposition home health service (06) | DRG 683 ==
LOC: ED 19:08 → 3W 22:47 → SUATTDRO 22:47 → 3W 03-06 00:13

== ENCOUNTER 2023-03-01 14:33 | Inpatient (IN) ==
--- NOTE | 2023-03-01 14:44 | ED Triage Note ---
Date of Service March 01, 2023 History of Present Illness This patient was briefly evaluated while in triage. An abbreviated physical exam was performed. This patient is a 82-year-old Female who presents to the ED for evaluation of "I have a UTI" bladder pain and pressure symptoms x 4 months - seen MD and did antibiotics x 2 started "seeing things" last night - people in her home that were not there Daughter reports no other changes in mental status, other than the visual hallucinations that patient reported to her. Physical Exam GENERAL: Elderly 82-year-old female seated in a wheelchair in no acute distress. Vital signs are stable. CARDIOVASCULAR: RRR RESPIRATORY: CTA ABDOMEN: BS x 4. Nontender to palpation. Initial orders for labs and / or imaging were placed and patient was placed in the waiting area until a bed is available. Please see further documentation for the full ED course. MDM / Impression Impression Impression: Complicated urinary tract infection, Hallucination, visual
[2023-03-01 15:43] LABS: Appearance Urine Cloudy (Clear); Bacteria Urine Automated 4+ (Negative); Bilirubin Urine Negative (Negative); Blood Urine Trace (Negative); Color Urine Yellow; Epithelial Cell Urine Auto >30 /lpf (0-5); Glucose Urine UA Negative (Negative); Ketones Urine Negative (Negative); Leukocyte Esterase Urine 2+ (Negative); Nitrite Urine Negative (Negative); Protein Urine 1+ (Negative); Specific Gravity Urine 1.018 (1.000-1.030); Urobilinogen Urine Negative (Negative); WBC Urine Automated >30 /hpf (0-5); pH Urine 5.5 (4.5-7.5)
[2023-03-01 15:48] LABS: Basophils # (auto) 0.05 K/uL (0.00-0.20); Basophils % (auto) 0.7 %; Eosinophils # (auto) 0.18 K/uL (0.00-0.50); Eosinophils % (auto) 2.4 %; Hematocrit (blood only) 40.1 % (37.0-47.0); Hemoglobin 12.7 g/dl (12.0-16.0); Immature Granulocytes # (auto) 0.02 K/uL (0.01-0.20); Immature Granulocytes % (auto) 0.3 %; Lymphocytes # (auto) 1.57 K/uL (1.20-3.40); Lymphocytes % (auto) 20.9 %; Mean Corpuscular Hemoglobin 31.3 pg (25.0-34.0); Mean Corpuscular Hgb Conc 31.7 g/dL (32.0-36.0); Mean Corpuscular Volume 98.8 fL (80.0-100.0); Mean Platelet Volume 9.1 fL (9.4-12.4); Monocytes # (auto) 0.68 K/uL (0.11-0.59); Monocytes % (auto) 9.1 %; Neutrophils # (auto) 5.01 K/uL (1.40-6.50); Neutrophils % (auto) 66.6 %; Platelet Count 272 K/uL (130-400); RDW Standard Deviation 47.2 fL (36.4-46.3); Red Blood Count 4.06 M/uL (4.20-5.40); White Blood Count 7.51 K/ul (4.8-10.8)
[2023-03-01 16:00] LABS: Alanine Aminotransferase 24 U/L (7-52); Albumin Globulin Ratio 1.4 (0.9-2); Alkaline Phosphatase 82 U/L (34-104); Anion Gap 5 (3-11); Aspartate Aminotransferase 20 U/L (13-39); BUN Creatinine Ratio 17.5 (10-20); Bilirubin,Total 0.5 mg/dl (0.2-1.0); Blood Urea Nitrogen 17 mg/dl (6-23); Calcium 8.9 mg/dl (8.6-10.3); Carbon Dioxide 30 mmol/L (21-32); Chloride 102 mmol/L (98-107); Est GFR (African American) 62.6 ml/min; Globulin 2.9 gm/dl (2.5-4.0); Glucose 95 mg/dl (70-99(Fasting)); Potassium 4.3 mmol/L (3.5-5.1); Sodium 137 mmol/L (136-145); Total Protein 6.9 gm/dl (6.0-8.3)
--- NOTE | 2023-03-01 16:15 | Emergency Department Note ---
Impression & Plan Complicated urinary tract infection, Hallucination, visual ED Provider Note HISTORY OF PRESENT ILLNESS: Patient is an 82-year-old female presenting with dysuria and visual hallucinations. Patient reports that she has had a recurrent urinary tract infection for the last 4 months. She last was on amoxicillin 2 weeks ago. She states that last night she started seeing things that were not there, including people and animals. She states the last time she got like that she was admitted for urinary tract infection. Denies any fevers. Denies any abdominal pain, nausea or vomiting. Reports dysuria and significant amounts of pressure and pain when she urinates. Her head librarian who lives with her tested positive for COVID last week and is on Paxlovid. Patient denies any fevers, chest pain or shortness of breath or cough. ROS: as above PHYSICAL EXAM: Constitutional: Patient appears in no acute distress. HENT: Head: Normocephalic and atraumatic. Eyes: EOMI, PERRL Mouth/Throat: Mucous membranes moist. Neck: Trachea midline. Neck supple. Cardiovascular: RRR, No murmurs, rubs or gallops. Intact distal pulses. Pulmonary/Chest: No respiratory distress. Breath sounds clear and equal bilaterally. No wheezes or rales. Abdominal: Abdomen soft, no tenderness, rebound or guarding. Musculoskeletal: No edema, tenderness or deformity noted. Skin: Warm and dry. No rash, erythema, pallor or cyanosis Psychiatric: Appropriate mood and affect for situation. Neurological: Alert and keenly responsive. CN II-XII grossly intact, moving all extremities equally and fully. MDM: - Vitals signs showed hypertension. - History obtained via patient. Patient presents with dysuria and visual hallucinations. Patient reports he has a recurrent urinary tract infections for the last 4 months. She is on amoxicillin 2 weeks ago. States that last night she started seeing things that were not there, including people and animals. She states that last time she was like this she had a UTI. Denies any fevers or abdominal pain. Her head librarian tested positive for COVID a week ago and was on Paxlovid, but the patient denies any cough, shortness of breath or chest pain. - Chronic conditions affecting care: paroxysmal Afib; HLD; CKD - Differential diagnoses include, but are not limited to: UTI; pneumonia; viral syndrome; electrolyte abnormality - Order placed for continuous cardiac monitoring. At this time, monitor showed rate of 71 bpm with normal sinus rhythm, per my interpretation. - External medical records reviewed. Patient's primary care visit note dated 02/09/2023 was reviewed. They noted that the patient has not had drug-resistant Klebsiella urinary tract infections in the past. - Previous urine cultures reviewed. 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 It is sensitive to ertapenem. - Discussed patient's case with ER pharmacist. She recommended starting the patient on ertapenem. - Laboratory workup interpreted by myself showed normal WBC; stable electrolytes; normal creatinine - COVID positive - Discussion was had with home care associate about patient's case and need for admission - Hospitalist consulted for admission - Patient admitted to [facility] Hospitalist service for further evaluation and management. ASSESSMENT AND PLAN: Diagnosis: Complicated UTI; visual hallucination Plan: Admit Past Med/Surg History Medical History Closed rib fracture (~03/06/22) Urinary incontinence Pleural effusion, bilateral (01/2022) Venous insufficiency of both lower extremities Fracture, tibia and fibula, proximal Hematoma of right lower extremity Fracture of greater trochanter of right femur Fall Closed hip fracture (~06/09/21) Chronic anticoagulation Hypercholesterolemia PAF (paroxysmal atrial fibrillation) Diastolic dysfunction LVH (left ventricular hypertrophy) Grief Depression Diaphragmatic hernia Lumbar spinal stenosis Vitamin D deficiency Osteoporosis GERD without esophagitis Diverticulosis Disc degeneration, lumbar Cystic thyroid nodule Chronic kidney disease, stage III (moderate) Anxiety Mitral regurgitation Rheumatoid arthritis Osteoarthritis Macular degeneration Hypertension Scoliosis Anemia Surgical History Status post Adilia fundoplication (01/2022) History of repair of hiatal hernia (01/2022) S/P ORIF (open reduction internal fixation) fracture (~03/2021) Knee arthropathy (10/2017) S/P thyroid surgery (01/2019) Status post arthroscopic partial medial meniscectomy (11/02/17) H/O bilateral oophorectomy (04/2017) History of hysterectomy (1988) History of total hip arthroplasty History of tooth extraction History of tonsillectomy History of adenoidectomy History of cataract surgery Family History Father Coronary heart disease Colorectal cancer Kidney disease Lung disease Mother Coronary heart disease Myocardial infarction Gallbladder disease Sister Diabetes Colorectal cancer Family/Other Diabetes Denies family history of Ovarian cancer Prostate cancer Breast cancer Social History Smoking Status: Never smoker Second Hand Exposure: Yes; Do You Dip or Chew Tobacco: No; Hx Alcohol Use: No Hx Substance Use: No Preferred Language: [place] Communication Ability: Effective Visual Impairment: No Limitations Hearing Ability: Use of Hearing Aid Golf Course Designer Required: No Beliefs That Will Affect Care: None marital status: / marital status details: passed August 2018 Current Living Situation: Family Current Living Situation Comment: daughter 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 How many Children do You have: 2 Feels Safe at Home: Yes Childhood Exposure to Second-Hand Smoke: No Diet Comment: regular caffeine: Yes (1/2 cup a day) during the past year weight has: decreased > 10 lbs Dental Care, Regularly: Yes Physical Activity Frequency: Daily Seatbelt Use: always Sunscreen Use: No Assistive Devices: Wheelchair Allergies Allergies Allergy/AdvReac Type Severity Reaction Status Date / Time No Known Allergies Allergy Verified 02/09/23 11:48 Home Meds Home Medications Medication Instructions Recorded Confirmed qzxhvdbk-frh-bvbrn acid 0.4 1 tab PO DAILY 09/10/20 03/01/23 mg-lycopene 300 mcg-lutein 250 mcg tablet (Centrum Silver) diphenhydramine 25 1 tab PO HS PRN Pain 08/06/21 03/01/23 mg-acetaminophen 500 mg tablet (Tylenol PM Extra Strength) vitamins A,C,X-wmpm-sjxonj 4,296 1 cap PO BID 08/06/21 03/01/23 mcg-226 mg-90 mg capsule (PreserVision AREDS) amiodarone 200 mg tablet 200 mg PO QAM 03/01/23 03/01/23 diclofenac sodium 1.5 % topical 1 drp topical UD 03/01/23 03/01/23 drops duloxetine 30 mg capsule,delayed 30 mg PO QAM 03/01/23 03/01/23 release Previous Rx's Medication Instructions Recorded magnesium oxide 400 mg (241.3 mg 400 mg PO BID #180 tabs 02/19/22 magnesium) tablet acetaminophen 500 mg tablet 500 mg PO Q6H #30 tabs 03/08/22 (Tylenol Extra Strength) metoprolol succinate 25 mg 25 mg PO QAM #90 tabs 06/05/22 tablet,extended release 24 hr ferrous sulfate 325 mg (65 mg 325 mg PO DAILY #90 tabs 10/08/22 iron) tablet (Iron (ferrous sulfate)) ropinirole 0.25 mg tablet 0.25 mg PO HS #90 tabs 11/16/22 apixaban 2.5 mg tablet (Eliquis) 2.5 mg PO BID #60 tabs 01/25/23 duloxetine 60 mg capsule,delayed 60 mg PO QAM #90 caps 02/01/23 release omeprazole 40 mg capsule,delayed 40 mg PO QAM #90 caps 02/03/23 release pravastatin 40 mg tablet 40 mg PO DAILY #90 tabs 02/10/23 famotidine 40 mg tablet 40 mg PO HS #90 tabs 02/23/23 metoclopramide HCl 5 mg tablet 5 mg PO QID 90 days #120 tabs 02/23/23 Results & Data (ED) Vital Signs Vital Signs - 24 hr 03/01/23 14:42 03/01/23 17:27 03/01/23 17:30 Temperature 36.8 C Temperature Source Temporal Artery Scan Pulse Rate 81 71 Pulse Rate [Apical] 71 Respiratory Rate 20 14 Respiratory Effort / Characteristics Non-Labored Spontaneous Non-Labored Spontaneous Respiratory Depth Normal Normal Respiratory Pattern Regular Blood Pressure 168/101 H Blood Pressure [Left Arm] 188/107 H Blood Pressure Mean 123 Blood Pressure Mean [Left Arm] 134 Pulse Oximetry 97 96 Oxygen Delivery Method Room Air Room Air Sepsis Recent Fever Within 48 Hours No Sepsis New/Unexplained Change in Mental Status No Sepsis Action Taken by Nursing No Action Required Laboratory Data 03/01/23 15:05 03/01/23 15:05 Lab Results 03/01/23 03/01/23 03/01/23 Range/Units 15:05 15:20 16:30 WBC 7.51 (4.8-10.8) K/ul RBC 4.06 L (4.20-5.40) M/uL Hgb 12.7 (12.0-16.0) g/dl Hct 40.1 (37.0-47.0) % MCV 98.8 (80.0-100.0) fL MCH 31.3 (25.0-34.0) pg MCHC 31.7 L (32.0-36.0) g/dL RDW Std Deviation 47.2 H (36.4-46.3) fL RDW Coeff of Tyra 13.0 (11.5-14.5) % Plt Count 272 (130-400) K/uL MPV 9.1 L (9.4-12.4) fL Immature Gran % (Auto) 0.3 % Neut % (Auto) 66.6 % Lymph % (Auto) 20.9 % Fannin % (Auto) 9.1 % Eos % (Auto) 2.4 % Baso % (Auto) 0.7 % Neut # (Auto) 5.01 (1.40-6.50) K/uL Lymph # (Auto) 1.57 (1.20-3.40) K/uL Fannin # (Auto) 0.68 H (0.11-0.59) K/uL Eos # (Auto) 0.18 (0.00-0.50) K/uL Baso # (Auto) 0.05 (0.00-0.20) K/uL Immature Gran # (Auto) 0.02 (0.01-0.20) K/uL Sodium 137 (136-145) mmol/L Potassium 4.3 (3.5-5.1) mmol/L Chloride 102 (98-107) mmol/L Carbon Dioxide 30 (21-32) mmol/L Anion Gap 5 (3-11) BUN 17 (6-23) mg/dl Creatinine 0.97 (0.6-1.2) mg/dl Est Cr Clr Drug Dosing Not Reportable Est GFR ( Amer) 62.6 ml/min Est GFR (Non-Af Amer) 54.0 ml/min BUN/Creatinine Ratio 17.5 (10-20) Glucose 95 (70-99(Fasting)) mg/dl Lactate 0.9 (0.4-2.0) mmol/L Calcium 8.9 (8.6-10.3) mg/dl Total Bilirubin 0.5 (0.2-1.0) mg/dl AST 20 (13-39) U/L ALT 24 (7-52) U/L Alkaline Phosphatase 82 (34-104) U/L Total Protein 6.9 (6.0-8.3) gm/dl Albumin 4.0 (3.4-5.0) gm/dl Globulin 2.9 (2.5-4.0) gm/dl Albumin/Globulin Ratio 1.4 (0.9-2) Urine Color Yellow Urine Appearance Cloudy A (Clear) Urine pH 5.5 (4.5-7.5) Ur Specific Union 1.018 (1.000-1.030) Urine Protein 1+ H (Negative) Urine Glucose (UA) Negative (Negative) Urine Ketones Negative (Negative) Urine Blood Trace H (Negative) Urine Nitrite Negative (Negative) Urine Bilirubin Negative (Negative) Urine Urobilinogen Negative (Negative) Ur Leukocyte Esterase 2+ H (Negative) Urine WBC (Auto) >30 H (0-5) /hpf Urine RBC (Auto) 5-10 H (0-4) /hpf U Hyaline Cast (Auto) 1-5 (0-5) /lpf U Epithel Cells (Auto) >30 H (0-5) /lpf Urine Bacteria (Auto) 4+ H (Negative) SARS-CoV-2 (PCR) POSITIVE A* (Negative) Influenza Type A (PCR) Negative (Neg) Influenza Type B (PCR) Negative (Neg) RSV (RT-PCR) Negative (Neg) Discharge Plan Visit Data Chief Complaint: Urinary Symptoms Stated Complaint: URINARY SYMPTOMS, UTI, HALLUCINATIONS ED Provider: Yvonne Alonzo Discharge Problem: Complicated urinary tract infection, Hallucination, visual Forms Stand Alone Forms: [facility] Prescriptions Prescriptions: No Action PreserVision AREDS [id number],[id number] bgkq-if-ndeg capsule 1 cap PO BID diphenhydramine-acetaminophen [Tylenol PM Extra Strength] 25-500 mg tablet 1 tab PO HS PRN (Reason: Pain) magnesium oxide 400 mg (241.3 mg magnesium) tablet 400 mg PO BID Qty: 180 3RF metoprolol succinate 25 mg tablet extended release 24 hr 25 mg PO QAM Qty: 90 2RF ropinirole 0.25 mg tablet 0.25 mg PO HS Qty: 90 1RF Eliquis 2.5 mg tablet 2.5 mg PO BID Qty: 60 2RF duloxetine 60 mg capsule,delayed release(DR/EC) 60 mg PO QAM Qty: 90 1RF omeprazole 40 mg capsule,delayed release(DR/EC) 40 mg PO QAM Qty: 90 1RF pravastatin 40 mg tablet 40 mg PO DAILY Qty: 90 2RF metoclopramide HCl 5 mg tablet 5 mg PO QID 90 Days Qty: 120 1RF famotidine 40 mg tablet 40 mg PO HS Qty: 90 1RF Centrum Silver 0.4-300-250 mg-mcg-mcg tablet 1 tab PO DAILY ferrous sulfate [Iron (ferrous sulfate)] 325 mg (65 mg iron) tablet 325 mg PO DAILY Qty: 90 1RF acetaminophen [Tylenol Extra Strength] 500 mg tablet 500 mg PO Q6H Qty: 30 0RF diclofenac sodium 1.5 % drops 1 drp TOPICAL UD amiodarone 200 mg tablet 200 mg PO QAM duloxetine 30 mg capsule,delayed release(DR/EC) 30 mg PO QAM Referrals Referrals: Kimber Prater DO [Primary Care Provider] -
[2023-03-01] MEDS ORDERED: ERTAPENEM SODIUM 1,000 MG in SYRINGE 0 ML IV ONE (16:30)
[2023-03-01 17:26] LABS: Influenza A virus by PCR Negative (Neg); Influenza B virus by PCR Negative (Neg); RSV by PCR Negative (Neg)
[2023-03-01 17:30] LABS: SARS CoV2 RNA(COVID-19) Ceph POSITIVE (Negative)
--- NOTE | 2023-03-01 18:09 | History & Physical Report ---
Date of Service March 01, 2023 Assessment & Plan (1) Complicated urinary tract infection: (2) Hallucination, visual: (3) Restless leg: (4) Rheumatoid arthritis: (5) PAF (paroxysmal atrial fibrillation): (6) Hypertension: (7) Hypercholesterolemia: (8) GERD without esophagitis: (9) Disc degeneration, lumbar: (10) Chronic kidney disease, stage III (moderate): (11) Anxiety: (12) Depression: (13) Infection due to ESBL-producing Klebsiella pneumoniae: Plan Urinary tract infection -Admit to med/telemetry -Dysuria and pressure when urinating -Treated with Augmentin -Urine culture 02/09 : Klebsiella pneumonia - ESBL -No leukocytosis, lactate negative -Continue Ertapenem daily -Blood culture, urine culture pending COVID positive -Cough and runny nose -CXR: no acute findings -No hypoxia, no steroids or remdesivir needed -Supportive managements for now -Isolation -Oxygen if needed Visual hallucinations -Pt had similar event in the past with UTI -No event since being in ER - seem to be due to infection, treatment as above Paroxysmal atrial fibrillation -On Eliquis 2.5 mg BID Continue Amiodarone, Metoprol CKD 3 -Cr 0.97, baseline less than 1.15 -Avoid nephrotoxic agents Depression Continue home medications HTN Continue home medications GERD Continue home medications Code: Full code DVT prophylaxis: Eliquis 2.5 mg BID Diet: heart healthy Dispo: Med/telemetry History of Present Illness Primary Care Provider: Kimber Prater DO [place] is a 82 y/o female with PMH of HTN, Diastolic disfunction , LVH, GERD, depression, lumbar spinal stenosis, Paroxysmal atrial fibrillation, CDK stage 3, anemia, osteoporosis, rheumatoid arthritis and vitamin D deficiency there due to dysuria and visual hallucinations. Patient have a urine culture positive for klebsiella ESBL from 01/27. She was treated with amoxicillin 2 weeks ago. Patient and caregiver refers visual hallucinations last night, including animals and people. She refers lower abdominal pressure when urinating. She refers hx of recurrent urinary tract infection in the past needing admission in the past. Caregiver was tested positive for COVID last week. Patient tested positive in the ER. She refers some sporadic cough and runny nose. She denied any fevers, shortness of breath, chest pain, palpitations, abdominal pain, or any other symptoms During the ER patient received one dose of Ertapenem. No leukocytosis, lactate normal. CXR ordered. No sepsis. No fever, respiration at 16, saturating at 98. Allergies Allergy/AdvReac Type Severity Reaction Status Date / Time No Known Allergies Allergy Verified 02/09/23 11:48 Home Medications Medication Instructions Recorded Confirmed Type jbpazjae-auv-xajwx acid 0.4 1 tab PO DAILY 09/10/20 03/01/23 History mg-lycopene 300 mcg-lutein 250 mcg tablet (Centrum Silver) diphenhydramine 25 1 tab PO HS PRN Pain 08/06/21 03/01/23 History mg-acetaminophen 500 mg tablet (Tylenol PM Extra Strength) vitamins A,C,N-wgfr-hfpelm 4,296 1 cap PO BID 08/06/21 03/01/23 History mcg-226 mg-90 mg capsule (PreserVision AREDS) magnesium oxide 400 mg (241.3 mg 400 mg PO BID #180 tabs 02/19/22 03/01/23 Rx magnesium) tablet acetaminophen 500 mg tablet 500 mg PO Q6H #30 tabs 03/08/22 03/01/23 Rx (Tylenol Extra Strength) metoprolol succinate 25 mg 25 mg PO QAM #90 tabs 06/05/22 03/01/23 Rx tablet,extended release 24 hr ferrous sulfate 325 mg (65 mg 325 mg PO DAILY #90 tabs 10/08/22 03/01/23 Rx iron) tablet (Iron (ferrous sulfate)) ropinirole 0.25 mg tablet 0.25 mg PO HS #90 tabs 11/16/22 03/01/23 Rx apixaban 2.5 mg tablet (Eliquis) 2.5 mg PO BID #60 tabs 01/25/23 03/01/23 Rx duloxetine 60 mg capsule,delayed 60 mg PO QAM #90 caps 02/01/23 03/01/23 Rx release omeprazole 40 mg capsule,delayed 40 mg PO QAM #90 caps 02/03/23 03/01/23 Rx release pravastatin 40 mg tablet 40 mg PO DAILY #90 tabs 02/10/23 03/01/23 Rx famotidine 40 mg tablet 40 mg PO HS #90 tabs 02/23/23 03/01/23 Rx metoclopramide HCl 5 mg tablet 5 mg PO QID 90 days #120 tabs 02/23/23 03/01/23 Rx amiodarone 200 mg tablet 200 mg PO QAM 03/01/23 03/01/23 History diclofenac sodium 1.5 % topical 1 drp topical UD 03/01/23 03/01/23 History drops duloxetine 30 mg capsule,delayed 30 mg PO QAM 03/01/23 03/01/23 History release Past Med/Surg History Medical History Closed rib fracture (~03/06/22) Urinary incontinence Pleural effusion, bilateral (01/2022) Venous insufficiency of both lower extremities Fracture, tibia and fibula, proximal Hematoma of right lower extremity Fracture of greater trochanter of right femur Fall Closed hip fracture (~06/09/21) Chronic anticoagulation Hypercholesterolemia PAF (paroxysmal atrial fibrillation) Diastolic dysfunction LVH (left ventricular hypertrophy) Grief Depression Diaphragmatic hernia Lumbar spinal stenosis Vitamin D deficiency Osteoporosis GERD without esophagitis Diverticulosis Disc degeneration, lumbar Cystic thyroid nodule Chronic kidney disease, stage III (moderate) Anxiety Mitral regurgitation Rheumatoid arthritis Osteoarthritis Macular degeneration Hypertension Scoliosis Anemia Surgical History Status post Adilia fundoplication (01/2022) History of repair of hiatal hernia (01/2022) S/P ORIF (open reduction internal fixation) fracture (~03/2021) Knee arthropathy (10/2017) S/P thyroid surgery (01/2019) Status post arthroscopic partial medial meniscectomy (11/02/17) H/O bilateral oophorectomy (04/2017) History of hysterectomy (1988) History of total hip arthroplasty History of tooth extraction History of tonsillectomy History of adenoidectomy History of cataract surgery Family History Father Coronary heart disease Colorectal cancer Kidney disease Lung disease Mother Coronary heart disease Myocardial infarction Gallbladder disease Sister Diabetes Colorectal cancer Family/Other Diabetes Denies family history of Ovarian cancer Prostate cancer Breast cancer Social History Smoking Status: Never smoker Second Hand Exposure: Yes; Do You Dip or Chew Tobacco: No; Hx Alcohol Use: No Hx Substance Use: No Preferred Language: Bahamian Communication Ability: Effective Visual Impairment: No Limitations Hearing Ability: Use of Hearing Aid Supermarket Manager Required: No Beliefs That Will Affect Care: None marital status: / marital status details: passed August 2018 Current Living Situation: Family Current Living Situation Comment: daughter 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 How many Children do You have: 2 Feels Safe at Home: Yes Childhood Exposure to Second-Hand Smoke: No Diet Comment: regular caffeine: Yes (1/2 cup a day) during the past year weight has: decreased > 10 lbs Dental Care, Regularly: Yes Physical Activity Frequency: Daily Seatbelt Use: always Sunscreen Use: No Assistive Devices: Wheelchair Review of Systems Review of Systems: as per HPI Physical Exam Constitutional: WD/WN, vitals as above Respiratory: normal respiratory effort, lungs clear to auscultation Cardiovascular: RRR, no murmur, no edema Gastrointestinal (Abdomen): normal bowel sounds, soft, nontender, no hepatosplenomegaly Musculoskeletal: no cyanosis or clubbing, extremities motor strength 5/5 Skin: no rashes, warm and dry Results & Data Results & Data Vital Signs (Past 12 Hours) Vital Signs Temp Pulse Pulse Resp BP BP Pulse Ox 03/01/23 17:30 71 03/01/23 17:27 71 14 188/107 H 96 03/01/23 14:42 36.8 C 81 20 168/101 H 97 O2 Del Method 03/01/23 17:30 03/01/23 17:27 Room Air 03/01/23 14:42 Room Air Supervising Physician Co-Signing Physician Notes Patient seen and examined, chart reviewed, case discussed with Dr. Kevin Reyes MD and I agree with the assessment and plan as above except as otherwise noted Labs and images reviewed Moni is an 82-year-old female with history of ESBL E. 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 Moni reports she has had no cough, no shortness of breath, no difficulty breathing. No pulmonary symptoms. She does endorse that she has had recurrent urinary tract infections with polyurea and some discomfort. This has not improved on Augmentin.Cultures reviewed, recent positive for ESBL E. coli. This is sensitive to Augmentin, but intermediate to Unasyn patient has not had good clinical response. Patient is started on ertapenem in the ER, I agree with continuing this. Repeat UA and culture pending. She does not have leukocytosis, lactate is normal, and she does not appear septic.COVID-positive, suspect this is new with exposure from a caregiver. Fortunately she is not hypoxic and does not have symptoms of this. Remdesivir and steroids are not currently indicated. Bedside assessment lungs are clear, heart rate is regular. Abdomen is soft and nontender. no questions or concerns. Agree with assessment and management above
[2023-03-01] MEDS ORDERED: ACETAMINOPHEN 325 MG TAB PO PRN (18:33)
[2023-03-01] MEDS ORDERED: POLYETHYLENE (MIRALAX) 17 GM PACK PO PRN (18:33)
[2023-03-01] MEDS ORDERED: ONDANSETRON INJ 2 MG/ML 2 ML VIAL IV PRN (18:33)
--- NOTE | 2023-03-01 19:01 | XRay Report ---
XR chest 1V portable CLINICAL HISTORY: Covid COMPARISON STUDY: Chest CT September 22, 2021. Chest radiograph March 05, 2022. FINDINGS: There is no pneumothorax. Possible trace left pleural effusion. Cardiomegaly is unchanged. There is no evidence for pulmonary edema. There is no consolidation to suggest pneumonia. Multiple ol d bilateral rib fractures are present. There are old deformities of the distal bilateral clavicles. L inear left basilar density favors atelectasis. IMPRESSION: No definite acute cardiopulmonary findings. ACT 112: Negative or not required by law. Electronically signed by: Osmel Srivastava M.D. 03/01/2023 7:00 PM
--- NOTE | 2023-03-01 19:01 | Billing Data ---
Date of Service March 01, 2023 Coding Level of Care Code 50297 INT INP/OBS CARE
[2023-03-01] MEDS ORDERED: DICLOFENAC SODIUM TOP SCH (19:45)
[2023-03-01] MEDS: ACETAMINOPHEN 500 MG TAB PO SCH (21:34)
[2023-03-01] MEDS: APIXABAN 2.5 MG TAB PO SCH (21:34)
[2023-03-01] MEDS: rOPINIRole HCL 0.25 MG TABLET PO SCH (21:35)
[2023-03-01] MEDS: CEROVITE ADV FORMULA TAB PO SCH (21:35)
[2023-03-01] MEDS: MAGNESIUM OXIDE 400 MG TAB PO SCH (21:35)
[2023-03-01] MEDS: FAMOTIDINE 40 MG TABLET PO SCH (21:35)
[2023-03-01] MEDS: METOCLOPRAMIDE HCL 5 MG TABLET PO SCH (21:36)
[2023-03-02] MEDS: ACETAMINOPHEN 500 MG TAB PO SCH ×4 (03:50→21:09)
[2023-03-02 04:31] LABS: Basophils # (auto) 0.05 K/uL (0.00-0.20); Basophils % (auto) 0.7 %; Eosinophils # (auto) 0.14 K/uL (0.00-0.50); Eosinophils % (auto) 1.8 %; Hematocrit (blood only) 41.6 % (37.0-47.0); Hemoglobin 13.8 g/dl (12.0-16.0); Immature Granulocytes # (auto) 0.03 K/uL (0.01-0.20); Immature Granulocytes % (auto) 0.4 %; Lymphocytes # (auto) 1.81 K/uL (1.20-3.40); Lymphocytes % (auto) 23.7 %; Mean Corpuscular Hemoglobin 32.4 pg (25.0-34.0); Mean Corpuscular Hgb Conc 33.2 g/dL (32.0-36.0); Mean Corpuscular Volume 97.7 fL (80.0-100.0); Mean Platelet Volume 9.2 fL (9.4-12.4); Monocytes # (auto) 0.63 K/uL (0.11-0.59); Monocytes % (auto) 8.3 %; Neutrophils # (auto) 4.97 K/uL (1.40-6.50); Neutrophils % (auto) 65.1 %; Platelet Count 264 K/uL (130-400); RDW Coefficient of Variation 13.1 % (11.5-14.5); RDW Standard Deviation 46.9 fL (36.4-46.3); Red Blood Count 4.26 M/uL (4.20-5.40); White Blood Count 7.63 K/ul (4.8-10.8)
[2023-03-02 04:40] LABS: BUN Creatinine Ratio 15.8 (10-20); Calcium 9.4 mg/dl (8.6-10.3); Creatinine Clr Calc Pharmacy 41.4 ml/min; Est GFR (African American) 64.2 ml/min; Est GFR (Non-African American) 55.4 ml/min; Potassium 4.9 mmol/L (3.5-5.1)
--- NOTE | 2023-03-02 07:08 | Hospitalist Progress Note ---
Date of Service March 02, 2023 Assessment & Plan (1) Complicated urinary tract infection: (2) Hallucination, visual: (3) Restless leg: (4) Rheumatoid arthritis: (5) PAF (paroxysmal atrial fibrillation): (6) Hypertension: (7) Hypercholesterolemia: (8) GERD without esophagitis: (9) Disc degeneration, lumbar: (10) Chronic kidney disease, stage III (moderate): (11) Anxiety: (12) Depression: (13) Infection due to ESBL-producing Klebsiella pneumoniae: Plan UTI -Admit to med/telemetry -Dysuria and pressure when urinating -Treated with Augmentin -Urine culture 02/09 : Klebsiella pneumonia - ESBL -No leukocytosis, lactate negative -Continue Ertapenem daily -Blood culture, urine culture pending COVID positive -Cough and runny nose -CXR: no acute findings -No hypoxia, no steroids or remdesivir needed -Supportive managements for now, isolation, oxygen if needed Visual hallucinations -Pt had similar event in the past with UTI; no events since admission - likely due to infection/dehydration, treatment as above Paroxysmal atrial fibrillation -On Eliquis 2.5 mg BID Continue Amiodarone, Metoprol Calf pain/DVT prophylaxis - B/l Doppler US ordered of LEs; pt currently on Eliquis, 2.5 mg, BID - COVID+ infxn could increase DVT risk; pt may be under-dosed for DVT prophylaxis (60 kg < wgt < 80 kg, baseline Cr 0.7 - 1.0) CKD-stage 3 -Cr 0.97, baseline less than 1.15 -Avoid nephrotoxic agents Depression Continue home medications HTN Continue home medications GERD Continue home medications Code: Full code DVT prophylaxis: Eliquis 2.5 mg BID Diet: heart healthy Dispo: Med/telemetry Admission and Anticipated Discharge Date Admission Date: March 01, 2023 Supervising Physician Co-Signing Physician Notes Attending attestation Pt seen and examined in concert with Dr. Mcguire. In agreement with the documented findings as noted in the resident documentation with any exceptions or additions as noted here. Ongoing symptomatic improvement on repeat evaluation. Ongoing cough without SOB, subjective fever. No report of calf pain at this time, though present in AM On examination, S1/S2 nl RRR no MCG. CTAB. Abd NT/ND BS+ve VS: 167/93, 71, 17, 36.5C, 99% RA Data: WBC 7.63, BUN: 15, Cr 0.95 UTI - UCx/BCx pending. Continue ertapenem and narrow when sensitivities available. Consider ID consult with ESBL if complicated. COVID - mild symptoms without hypoxia. Monitor with supportive care. Visual hallucinations: resolved Calf pain - doppler WNL and resolved sx Else see resident documentation as noted. Prabhu Staton is a 82 y/o female with PMH of HTN, Diastolic disfunction , LVH, GERD, depression, lumbar spinal stenosis, Paroxysmal atrial fibrillation, CDK stage 3, anemia, osteoporosis, rheumatoid arthritis and vitamin D deficiency there due to dysuria and visual hallucinations. Patient had a urine culture positive for klebsiella ESBL from 01/27. She was treated with amoxicillin 2 weeks ago. Patient and caregiver endorsed visual hallucinations last night, including animals and people, but none since admission; no more dysuria either. No more suprapubic pressure when urinating. Pt tested positive for COVID in the ER. Pt feels like runny nose, congestion has improved. She denied any fevers, shortness of breath, chest pain, palpitations, abdominal pain During the ER patient received one dose of Ertapenem. No leukocytosis, lactate normal. CXR ordered. No sepsis. Review of Systems Constitutional: no fever, no chills and no body aches Respiratory: + cough (productive cough) and + chest c ongestion; no dyspnea and no hemoptysis Cardiovascular: no chest pain, no palpitations and no lightheadedness Gastrointestinal: no abdominal pain, no nausea, no vomiting and no constipation Genitourinary: + urinary frequency (baseline high freq due to Lasix); no dysuria (has not noticed since admission) Musculoskeletal: + back pain (due to scoliosis); no myalg ia Neurologic: no tingling and no numbness Physical Exam Constitutional: WD/WN, vitals as above Respiratory: normal respiratory effort, lungs clear to auscultation Cardiovascular: RRR, no murmur, no edema Gastrointestinal (Abdomen): normal bowel sounds, soft, nontender, no hepatosplenomegaly Percussion/Palpation: abdomen soft; abdomen nontender Musculoskeletal: Extremities: + extremities abnormal to inspection (both calves (more l. calf) very tender) Neurologic: awake; not confused and not obtunded Results & Data Results & Data Vital Signs (Past 12 Hours) Vital Signs Temp Pulse Resp BP Pulse Ox 03/02/23 06:00 65 16 03/02/23 05:00 63 22 95 03/02/23 04:00 65 15 164/87 H 94 03/02/23 03:00 68 20 93 03/02/23 02:00 65 18 94 03/02/23 01:00 65 19 93 03/02/23 00:00 65 18 164/85 H 95 03/01/23 23:00 67 23 95 03/01/23 22:00 65 16 93 03/01/23 21:42 73 20 98 03/01/23 21:37 36.8 C 03/01/23 21:34 71 15 168/117 H 98 03/01/23 21:00 74 17 97 03/01/23 20:30 68 22 96 03/01/23 20:00 68 19 97 03/01/23 19:30 70 19 Resident Activity Tracking Resident Involvement: Resident Care Provided Care Provided: Adult Hospital Medicine
[2023-03-02] MEDS ORDERED: CEROVITE ADV FORMULA TAB PO SCH (09:00)
[2023-03-02] MEDS: METOPROLOL SUCC 25MG EXT REL TAB PO SCH (09:34)
[2023-03-02] MEDS: APIXABAN 2.5 MG TAB PO SCH ×2 (09:34→21:08)
[2023-03-02] MEDS: DULoxetine HCL 60 MG CAP PO SCH (09:34)
[2023-03-02] MEDS: CEROVITE ADV FORMULA TAB PO SCH ×2 (09:34→21:07)
[2023-03-02] MEDS: AMIODARONE 200 MG TAB PO SCH (09:35)
[2023-03-02] MEDS: METOCLOPRAMIDE HCL 5 MG TABLET PO SCH ×4 (09:35→21:07)
[2023-03-02] MEDS: MAGNESIUM OXIDE 400 MG TAB PO SCH ×2 (09:35→21:08)
[2023-03-02] MEDS: PRAVASTATIN SOD 40 MG TAB PO SCH (09:35)
[2023-03-02] MEDS: FERROUS SULFATE 325 MG TAB PO SCH (09:35)
[2023-03-02] MEDS: DICLOFENAC SOD 1% GEL 100 GM TUBE EXT SCH (09:35)
[2023-03-02] MEDS: DULoxetine HCL 30 MG CAP PO SCH (09:35)
[2023-03-02] MEDS: PANTOprazole 40 MG TAB PO SCH (09:39)
--- NOTE | 2023-03-02 13:53 | Ultrasound Report ---
BILATERAL LOWER EXTREMITY VENOUS DOPPLER CLINICAL HISTORY: Calf pain. Covid. COMPARISON STUDY: Bilateral lower extremity venous Doppler ultrasound June 30, 2021. TECHNIQUE: Sonography of the deep venous system of the bilateral lower extremities was performed. Co mpression and augmentation were evaluated. FINDINGS: The bilateral common femoral, superficial femoral and popliteal veins were compressible. A ugmentation was normal. Flow was shown within the deep calf vessels. IMPRESSION: No evidence of deep venous thrombus within the bilateral lower extremities. ACT 112: Negative or not required by law. Electronically signed by: Osmel Srivastava M.D. 03/02/2023 1:52 PM
[2023-03-02] MEDS: ERTAPENEM SODIUM 1,000 MG in SYRINGE 0 ML IV SCH (18:06)
[2023-03-02] MEDS: rOPINIRole HCL 0.25 MG TABLET PO SCH (21:07)
[2023-03-02] MEDS: FAMOTIDINE 40 MG TABLET PO SCH (21:08)
[2023-03-03] MEDS: ACETAMINOPHEN 500 MG TAB PO SCH ×4 (00:18→20:03)
[2023-03-03 07:16] LABS: Basophils # (auto) 0.04 K/uL (0.00-0.20); Basophils % (auto) 0.6 %; Eosinophils # (auto) 0.17 K/uL (0.00-0.50); Eosinophils % (auto) 2.4 %; Hematocrit (blood only) 39.2 % (37.0-47.0); Hemoglobin 12.7 g/dl (12.0-16.0); Immature Granulocytes # (auto) 0.03 K/uL (0.01-0.20); Immature Granulocytes % (auto) 0.4 %; Lymphocytes # (auto) 1.83 K/uL (1.20-3.40); Lymphocytes % (auto) 26.2 %; Mean Corpuscular Hemoglobin 31.8 pg (25.0-34.0); Mean Corpuscular Hgb Conc 32.4 g/dL (32.0-36.0); Mean Platelet Volume 8.9 fL (9.4-12.4); Monocytes # (auto) 0.76 K/uL (0.11-0.59); Monocytes % (auto) 10.9 %; Neutrophils # (auto) 4.15 K/uL (1.40-6.50); Neutrophils % (auto) 59.5 %; Platelet Count 253 K/uL (130-400); RDW Coefficient of Variation 13.2 % (11.5-14.5); RDW Standard Deviation 47.6 fL (36.4-46.3); White Blood Count 6.98 K/ul (4.8-10.8)
[2023-03-03 07:36] LABS: BUN Creatinine Ratio 17.9 (10-20); Calcium 8.9 mg/dl (8.6-10.3); Est GFR (African American) 56.2 ml/min; Est GFR (Non-African American) 48.5 ml/min; Potassium 4.5 mmol/L (3.5-5.1)
[2023-03-03] MEDS: METOPROLOL SUCC 25MG EXT REL TAB PO SCH (08:06)
[2023-03-03] MEDS: DULoxetine HCL 30 MG CAP PO SCH (08:08)
[2023-03-03] MEDS: PANTOprazole 40 MG TAB PO SCH (08:08)
[2023-03-03] MEDS: PRAVASTATIN SOD 40 MG TAB PO SCH (08:09)
[2023-03-03] MEDS: AMIODARONE 200 MG TAB PO SCH (08:09)
[2023-03-03] MEDS: APIXABAN 2.5 MG TAB PO SCH ×2 (08:09→20:03)
[2023-03-03] MEDS: METOCLOPRAMIDE HCL 5 MG TABLET PO SCH ×4 (08:09→20:03)
[2023-03-03] MEDS: MAGNESIUM OXIDE 400 MG TAB PO SCH ×2 (08:09→20:03)
[2023-03-03] MEDS: CEROVITE ADV FORMULA TAB PO SCH ×2 (08:10→20:04)
[2023-03-03] MEDS: DULoxetine HCL 60 MG CAP PO SCH (08:10)
[2023-03-03] MEDS: FERROUS SULFATE 325 MG TAB PO SCH (08:10)
[2023-03-03] MEDS: DICLOFENAC SOD 1% GEL 100 GM TUBE EXT SCH (08:10)
--- NOTE | 2023-03-03 14:30 | Infectious Disease Consult ---
Date of Consultation March 03, 2023 Assessment & Plan (1) Infection due to ESBL-producing Klebsiella pneumoniae: (2) Urinary tract infection due to extended-spectrum beta lactamase (ESBL)- producing Klebsiella: (3) COVID-19 virus infection: (4) Cystitis: (5) Recurrent UTI: Plan Brionna Carvajal is an 82-year-old woman with history of HTN, HFpEF, GERD, lumbar spinal stenosis, pAfib, CKD 3, RA on hydroxychloroquine, who presents to [facility] on 03/01 with 4 months of urgency/dysuria (recent 01/27 UCx +ESBL Klebsiella s/p Augmentin without improvement) and visual hallucinations. Also with runny nose and congestion testing Covid+ in the ED. ID is consulted for ESBL Klebsiella UTI. Pt with persistent cystitis symptoms and persistent UCx + ESBL Klebsiella, despite treatment with abx (Augmentin and other abx?). ESBL Klebsiella is R to Bactrim/levo/cipro. No fevers, chills, leukocytosis, and BCx NG, thus her clinical picture appears most consistent with cystitis. Do note that she had delirium which resolved quickly with treatment.Has had significant improvement with ertapenem. Would continue ertapenem to complete a 5-day course. The patient has recurrent cystitis but does not appear to have a history of more complicated UTI (no reported history of pyelo or bacteremia). If recurrent UTIs with same organism in the future, would perform CT to evaluate for stones/urinary anatomy and consideration of urology reevaluation (last had a CT A/P 02/2022 with possible bladder mass and no renal mass or hydronephrosis; cystoscopy 03/2022 that was normal). Given her recurrent cystitis, may want to consider a trial of topical estrogen given that she is postmenopausal. She is +for Covid-19, with a contact being her daughter who was also confirmed positive. She appears minimally symptomatic (says she has chronic rhinorrhea and a chronic mild cough that are near baseline). She was not hypoxemic and thus remdesivir and dexamethasone were not given. Of note, given that the patient was hospitalized for a reason other than Covid: https://www.exuqv48tzlybnigqlvbbhaowep .nih.gov/management/pffidcnu-zlgicrvlqx-gw-adults/hospitalized-adults--therapeut ic-management/ https://www.yxbsk30mzaxkhitmofpexwalvg.nih.gov/management/tcdmphgh-hpxvurzwwd-rd -adults/nonhospitalized-adults--therapeutic-management/ It may be reasonable to consider Paxlovid if available, primarily with risk factor of complications due to age >65. Note that if patient were to take Paxlovid, that she may have some medication interactions requiring medication adjustments/holding (https://www.nhkag22rhlpulptpwqgeelnjmm.nih.gov/therapies/yykzrknmvt-tljbijoes-q ntibody-products/lbvfaxljy-urlhaso-rrymj trelvir--paxlovid-/sblfjrht-diev-odkq-interactions/) ; she is on apixaban. ID Problem List: 1.ESBL Klebsiella pneumoniae UTI 2.Covid-19 positive 3.History of recurrent UTIs, cystitis Recommendations: - Continue ertapenem 1g IV Q24H to complete a 5-day course (03/01-03/05/23) - Consider Paxlovid for Covid-19 though would thoroughly review medication interactions as above - Would consider topical estrogen (to address recurrent cystitis in a postmenopausal woman), Consideration of measures to reduce UTI, such as timed voiding to address retention. - If recurrent UTIs with same organism in the future, would consider CT to evaluate for stones/urinary anatomy and consideration of urology reevaluation Plan discussed with hospitalist. Thank you for letting ID participate in the care of this patient. ID will sign off at this time. If questions, please contact the [facility] at [phone]. Mehreen Clark MD, MHS Infectious Diseases [facility] direct line: [phone] Consultation Information Consultation was provided via telemedicine using two-way real-time interactive telecommunication between the patient and the telemedicine provider. For the duration of the visit, the provider was performing the assessment from a different facility than the patient. This includesuse of bluetooth stethoscope forauscultationperformed by the telepresenter that the telemedicine provider can hear if described in the physical exam. Application Designer contact information: Please call [facility] Call Center . (Phone Number For Physician Use Only) After establishing a telemedicine visit, patient was: Patient was verified with two unique identifiers, Patient/authorized rep acknowledged consent and understanding and Gave permission to continue telehealth session Time Spent with Patient: Initial => 75 min History of Present Illness Reason for Consultation: ESBL Klebsiella UTI Attending Physician: Joe Taylor MD History of Present Illness Brionna Carvajal is an 82-year-old woman with history of HTN, HFpEF, GERD, lumbar spinal stenosis, pAfib, CKD 3, RA on hydroxychloroquine, who presents to [facility] on 03/01 with 4 months of urgency/dysuria (recent 01/27 UCx +ESBL Klebsiella s/p Augmentin without improvement) and visual hallucinations. Also with runny nose and congestion testing Covid+ in the ED. ID is consulted for ESBL Klebsiella UTI. She has a history of recurrent UTIs and reports that she has had urinary symptoms on and off for four years. Most recently, she has had ~1 month of urinary sx including urgency and dysuria. Her recent 01/27 UCx grew ESBL Klebsiella pneumoniae which was susceptible to Augmentin (I-Unasyn). She was treated as an outpatient with Augmentin (per PCP note on 02/09/23) and continued to have dysuria and she reportedly received a second antibiotic but does not recall the name of this. At the time of her PCP visit, no fevers/chills, flank pain, or abdominal pain reported. She has chronic back pain and this was at baseline. A repeat UCx on 02/09 also grew ESBL Klebsiella pneumoniae. She began experiencing visual hallucinations including of animals and people. The patient reportedly has had symptoms of hallucinations with confusion during prior episodes of UTIs as well. In the ED, afebrile. Found to be Covid-19 positive. The patients daughter is also positive for Covid. She was not hypoxemic and thus did not receive treatment for her Covid. 03/01 UA with >30 WBCs and 5-10 RBCs, >30 epithelial cells, 4+ bacteria. Of note, her prior UAs on 02/09 and 01/27 were similar. She was started on ertapenem for UTI. She has remained afebrile, WBC 7. Since admission, she has had improvement in her urinary symptoms, with no further dysuria or suprapubic pressure. Her hallucinations also quickly resolved upon admission. She had mild runny nose and congestion which have improved as well, and also reports that she has chronic mild rhinorrhea and a chronic mild cough. She is vaccinated against Covid-19 (has received 5 doses of vaccine), with both Covid-19 and flu vaccines about [address] A/P (for unrelated reasons) in 02/2022 showed a possible bladder mass, without renal pathology. She has been seen by urology in 03/2022 for hematuria, with cystoscopy negative for bladder mass. The patient does not recall any complicated UTIs; does not believe she has ever had pyelonephritis or bacteremia during an episode of UTI. She says she always pees twice to ensure that she is not having severe retention. Allergies Allergy/AdvReac Type Severity Reaction Status Date / Time No Known Allergies Allergy Verified 02/09/23 11:48 Home Medications Medication Instructions Recorded Confirmed Type wzfkrijq-vbk-gdqdo acid 0.4 1 tab PO DAILY 09/10/20 03/01/23 History mg-lycopene 300 mcg-lutein 250 mcg tablet (Centrum Silver) diphenhydramine 25 1 tab PO HS PRN Pain 08/06/21 03/01/23 History mg-acetaminophen 500 mg tablet (Tylenol PM Extra Strength) vitamins A,C,M-owxo-iiujyw 4,296 1 cap PO BID 08/06/21 03/01/23 History mcg-226 mg-90 mg capsule (PreserVision AREDS) magnesium oxide 400 mg (241.3 mg 400 mg PO BID #180 tabs 02/19/22 03/01/23 Rx magnesium) tablet acetaminophen 500 mg tablet 500 mg PO Q6H #30 tabs 03/08/22 03/01/23 Rx (Tylenol Extra Strength) metoprolol succinate 25 mg 25 mg PO QAM #90 tabs 06/05/22 03/01/23 Rx tablet,extended release 24 hr ferrous sulfate 325 mg (65 mg 325 mg PO DAILY #90 tabs 10/08/22 03/01/23 Rx iron) tablet (Iron (ferrous sulfate)) ropinirole 0.25 mg tablet 0.25 mg PO HS #90 tabs 11/16/22 03/01/23 Rx apixaban 2.5 mg tablet (Eliquis) 2.5 mg PO BID #60 tabs 01/25/23 03/01/23 Rx duloxetine 60 mg capsule,delayed 60 mg PO QAM #90 caps 02/01/23 03/01/23 Rx release omeprazole 40 mg capsule,delayed 40 mg PO QAM #90 caps 02/03/23 03/01/23 Rx release pravastatin 40 mg tablet 40 mg PO DAILY #90 tabs 02/10/23 03/01/23 Rx famotidine 40 mg tablet 40 mg PO HS #90 tabs 02/23/23 03/01/23 Rx metoclopramide HCl 5 mg tablet 5 mg PO QID 90 days #120 tabs 02/23/23 03/01/23 Rx amiodarone 200 mg tablet 200 mg PO QAM 03/01/23 03/01/23 History diclofenac sodium 1.5 % topical 1 drp topical UD 03/01/23 03/01/23 History drops duloxetine 30 mg capsule,delayed 30 mg PO QAM 03/01/23 03/01/23 History release Patient History Medical History Closed rib fracture (~03/06/22) Urinary incontinence Pleural effusion, bilateral (01/2022) Venous insufficiency of both lower extremities Fracture, tibia and fibula, proximal Hematoma of right lower extremity Fracture of greater trochanter of right femur Fall Closed hip fracture (~06/09/21) Chronic anticoagulation Hypercholesterolemia PAF (paroxysmal atrial fibrillation) Diastolic dysfunction LVH (left ventricular hypertrophy) Grief Depression Diaphragmatic hernia Lumbar spinal stenosis Vitamin D deficiency Osteoporosis GERD without esophagitis Diverticulosis Disc degeneration, lumbar Cystic thyroid nodule Chronic kidney disease, stage III (moderate) Anxiety Mitral regurgitation Rheumatoid arthritis Osteoarthritis Macular degeneration Hypertension Scoliosis Anemia Surgical History Status post Adilia fundoplication (01/2022) History of repair of hiatal hernia (01/2022) S/P ORIF (open reduction internal fixation) fracture (~03/2021) Knee arthropathy (10/2017) S/P thyroid surgery (01/2019) Status post arthroscopic partial medial meniscectomy (11/02/17) H/O bilateral oophorectomy (04/2017) History of hysterectomy (1988) History of total hip arthroplasty History of tooth extraction History of tonsillectomy History of adenoidectomy History of cataract surgery Family History Father Coronary heart disease Colorectal cancer Kidney disease Lung disease Mother Coronary heart disease Myocardial infarction Gallbladder disease Sister Diabetes Colorectal cancer Family/Other Diabetes Denies family history of Ovarian cancer Prostate cancer Breast cancer Social History Smoking Status: Never smoker Second Hand Exposure: Yes; Do You Dip or Chew Tobacco: No; Hx Alcohol Use: No Hx Substance Use: No Preferred Language: Swedish Communication Ability: Effective Visual Impairment: No Limitations Hearing Ability: Use of Hearing Aid Steel Spar Operator Required: No Beliefs That Will Affect Care: None marital status: / marital status details: passed August 2018 Current Living Situation: Family Current Living Situation Comment: at home with daughter and dog current occupational status: 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 General: Well-appearing, no acute distress HEENT: Conjunctivae non-injected, sclerae anicteric, MMM, OP clear. Resp: Respirations nonlabored. Abd: Soft, nontender, nondistended. : No suprapubic tenderness. Bilateral mild back pain in the flank area but patient says this is chronic. Ext: Warm and well-perfused, no edema. No joint warmth or effusions noted. Bilateral lower extremity tenderness over shins Skin: No rashes or lesions. Neuro: Alert & interactive. Grossly non-focal. Psych: Pleasant, appropriate. Results & Data Vital Signs (Past 12 Hours) Vital Signs Temp Pulse Pulse Resp BP Pulse Ox O2 Del Method 03/03/23 12:46 36.8 C 64 17 148/79 H 96 Room Air 03/03/23 10:24 Room Air 03/03/23 08:10 36.7 C 58 L 14 158/80 H 95 Room Air 03/03/23 05:57 66 03/03/23 03:21 36.8 C 68 16 149/79 H 94 Room Air Diagnostic Findings Micro Summary: 03/01 UCx: >100k ESBL Klebsiella pneumoniae (R-Bactrim R-levo R-cipro. S- erta/shaggy) 03/01 BCx x2 NGTD 02/09 UCx: >100k ESBL Klebsiella pneumoniae (R-Bactrim R-levo R-cipro. S- erta/shaggy) 01/27 UCx: >100k ESBL Klebsiella pneumoniae (R-Bactrim R-levo R-cipro. S- erta/shaggy) 11/18 UCx: >100k ESBL Klebsiella pneumoniae (R-Bactrim R-levo R-cipro. S- erta/shaggy) 06/25 UCx: Proteus mirabilis 02/03/22 UCx: ESBL Klebsiella pneumoniae 10/05/21 UCx: ESBL Klebsiella pneumoniae Antibiotic Summary: Ertapenem (03/01-present) Augmentin and another antibiotic (?) 2 weeks [facility]
--- NOTE | 2023-03-03 16:29 | Hospitalist Progress Note ---
Date of Service March 03, 2023 Assessment & Plan (1) Complicated urinary tract infection: (2) Infection due to ESBL-producing Klebsiella pneumoniae: (3) COVID-19 virus infection: (4) Hallucination, visual: (5) Restless leg: (6) Rheumatoid arthritis: (7) PAF (paroxysmal atrial fibrillation): (8) Hypertension: (9) Hypercholesterolemia: (10) GERD without esophagitis: (11) Disc degeneration, lumbar: (12) Chronic kidney disease, stage III (moderate): (13) Anxiety: (14) Depression: Plan UTI -Admit to med/telemetry -No leukocytosis, lactate negative -Dysuria and pressure when urinating upon admission -Treated with Augmentin for previous UTI (02/09/23) -Urine Cx (03/01/23): Klebsiella pneumoniae-ESBL (02/09/23 urine Cx had same result, very similar sensitivities) -Continue Ertapenem, 1000 mg, IV, daily; ID consulted and recommended completing a 5-day course of Ertapenem, patient's symptoms consistent w/ cystitis -Blood culture, no growth after 48 hrs COVID positive -Cough and runny nose -CXR: no acute findings -No hypoxia, no steroids or remdesivir needed presently -Supportive managements for now, isolation, oxygen if needed Visual hallucinations -Pt had similar event in the past with UTI; no events since admission - likely due to infection/dehydration, treatment as above Paroxysmal atrial fibrillation -On Eliquis 2.5 mg BID Continue Amiodarone, Metoprol Calf pain/DVT prophylaxis - B/l Doppler US ordered of LEs; pt currently on Eliquis, 2.5 mg, BID - COVID+ infxn could increase DVT risk; pt may be under-dosed for DVT prophyl axis (60 kg < wgt < 80 kg, baseline Cr 0.7 - 1.0) CKD-stage 3 -Cr 0.97, baseline less than 1.15 -Avoid nephrotoxic agents Depression/Anxiety Continue home medications HTN Continue home medications GERD Continue home medications Code: Full code DVT prophylaxis: Eliquis 2.5 mg BID Diet: heart healthy Dispo: Med/telemetry Admission and Anticipated Discharge Date Admission Date: March 01, 2023 Supervising Physician Co-Signing Physician Notes Attending attestation Pt seen and examined in concert with Dr. Mcguire. In agreement with the documented findings as noted in the resident documentation with any exceptions or additions as noted here. Stable/diminished cough and congestion at present without other complaints. At time of examination, AAO x 1 - place, not time nor self On examination, S1/S2 nl RRR no MCG. CTAB. Abd NT/ND BS+ve VS: 145/80, 61, 20, 36.7C, 95%RA Data: WBC 6.98 UTI - UCx w/ ESBL Klebsiella sensitive only to augmentin PO, which has failed repeatedly. Continue ertapenem. ID consult. COVID - mild symptoms without hypoxia. Monitor with supportive care. Visual hallucinations: resolved Else see resident documentation as noted. Prabhu Staton is a 82 y/o female with PMH of HTN, Diastolic disfunction, LVH, GERD, depression, lumbar spinal stenosis, paroxysmal atrial fibrillation, CKD-stage 3, anemia, osteoporosis, rheumatoid arthritis and vitamin D deficiency, presenting to ED due to dysuria and visual hallucinations. Patient had a urine culture positive for klebsiella ESBL from 01/27. She was treated with amoxicillin 2 weeks ago. Patient endorsed (and caregiver corroborated) visual hallucinations last night, including animals and people, but none since admission; no more dysuria nor suprapubic pressure when voiding since admission. Pt tested positive for COVID in the ER. Pt feels like runny nose, congestion has improved. She denied any fevers, shortness of breath, chest pain, palpitations, abdominal pain, was AAO x 4 this morning, pleasant. Review of Systems Review of Systems: as per HPI Constitutional: no fever, no chills and no body aches Respiratory: + cough (productive cough) and + chest c ongestion; no dyspnea and no hemoptysis Cardiovascular: no chest pain, no palpitations and no lightheadedness Gastrointestinal: no abdominal pain, no nausea, no vomiting and no constipation Genitourinary: + urinary frequency (baseline high freq due to Lasix); no dysuria (has not noticed since admission) Musculoskeletal: + back pain (baseline back pain) and + m yalgia (calf tenderness) Neurologic: no tingling and no numbness Physical Exam Constitutional: WD/WN, vitals as above Respiratory: normal respiratory effort Auscultation: + wheezes Cardiovascular: RRR, no murmur, no edema Gastrointestinal (Abdomen): normal bowel sounds, soft, nontender, no hepatosplenomegaly Percussion/Palpation: abdomen soft; abdomen nontender Musculoskeletal: Extremities: + extremities abnormal to inspection (moderate residual calf pain b/l) Neurologic: awake; not confused and not obtunded Psychiatric: A+Ox3, euthymic affect Results & Data Results & Data Vital Signs (Past 12 Hours) Vital Signs Temp Pulse Pulse Resp BP Pulse Ox O2 Del Method 03/03/23 15:09 36.7 C 61 20 145/80 H 95 Room Air 03/03/23 12:46 36.8 C 64 17 148/79 H 96 Room Air 03/03/23 10:24 Room Air 03/03/23 08:10 36.7 C 58 L 14 158/80 H 95 Room Air 03/03/23 05:57 66 Resident Activity Tracking Resident Involvement: Resident Care Provided Care Provided: Adult Hospital Medicine
[2023-03-03] MEDS: ERTAPENEM SODIUM 1,000 MG in SYRINGE 0 ML IV SCH (17:34)
[2023-03-03] MEDS: FAMOTIDINE 40 MG TABLET PO SCH (20:03)
[2023-03-03] MEDS: rOPINIRole HCL 0.25 MG TABLET PO SCH (20:04)
[2023-03-04] MEDS: ACETAMINOPHEN 500 MG TAB PO SCH ×4 (01:09→21:02)
[2023-03-04 07:11] LABS: Basophils # (auto) 0.04 K/uL (0.00-0.20); Basophils % (auto) 0.6 %; Eosinophils # (auto) 0.17 K/uL (0.00-0.50); Eosinophils % (auto) 2.4 %; Hematocrit (blood only) 35.5 % (37.0-47.0); Hemoglobin 11.9 g/dl (12.0-16.0); Immature Granulocytes # (auto) 0.02 K/uL (0.01-0.20); Immature Granulocytes % (auto) 0.3 %; Lymphocytes # (auto) 1.55 K/uL (1.20-3.40); Lymphocytes % (auto) 21.9 %; Mean Corpuscular Hemoglobin 31.9 pg (25.0-34.0); Mean Corpuscular Hgb Conc 33.5 g/dL (32.0-36.0); Mean Corpuscular Volume 95.2 fL (80.0-100.0); Monocytes # (auto) 0.82 K/uL (0.11-0.59); Monocytes % (auto) 11.6 %; Neutrophils # (auto) 4.49 K/uL (1.40-6.50); Neutrophils % (auto) 63.2 %; Platelet Count 221 K/uL (130-400); RDW Standard Deviation 45.5 fL (36.4-46.3); Red Blood Count 3.73 M/uL (4.20-5.40); White Blood Count 7.09 K/ul (4.8-10.8)
[2023-03-04 07:27] LABS: Calcium 8.6 mg/dl (8.6-10.3); Creatinine Clr Calc Pharmacy 38.3 ml/min; Est GFR (African American) 60.3 ml/min; Est GFR (Non-African American) 52.1 ml/min; Potassium 4.2 mmol/L (3.5-5.1)
[2023-03-04] MEDS: DICLOFENAC SOD 1% GEL 100 GM TUBE EXT SCH (08:11)
[2023-03-04] MEDS: CEROVITE ADV FORMULA TAB PO SCH ×2 (08:12→21:04)
[2023-03-04] MEDS: METOCLOPRAMIDE HCL 5 MG TABLET PO SCH ×4 (08:12→21:03)
[2023-03-04] MEDS: METOPROLOL SUCC 25MG EXT REL TAB PO SCH (08:13)
[2023-03-04] MEDS: FERROUS SULFATE 325 MG TAB PO SCH (08:13)
[2023-03-04] MEDS: AMIODARONE 200 MG TAB PO SCH (08:13)
[2023-03-04] MEDS: APIXABAN 2.5 MG TAB PO SCH ×2 (08:13→21:01)
[2023-03-04] MEDS: MAGNESIUM OXIDE 400 MG TAB PO SCH ×2 (08:13→21:02)
[2023-03-04] MEDS: DULoxetine HCL 30 MG CAP PO SCH (08:13)
[2023-03-04] MEDS: PRAVASTATIN SOD 40 MG TAB PO SCH (08:14)
[2023-03-04] MEDS: DULoxetine HCL 60 MG CAP PO SCH (08:14)
[2023-03-04] MEDS: PANTOprazole 40 MG TAB PO SCH (08:14)
--- NOTE | 2023-03-04 16:25 | Hospitalist Progress Note ---
Date of Service March 04, 2023 Assessment & Plan (1) Complicated urinary tract infection: (2) Infection due to ESBL-producing Klebsiella pneumoniae: (3) COVID-19 virus infection: (4) Hallucination, visual: (5) Restless leg: (6) Rheumatoid arthritis: (7) PAF (paroxysmal atrial fibrillation): (8) Hypertension: (9) Hypercholesterolemia: (10) GERD without esophagitis: (11) Disc degeneration, lumbar: (12) Chronic kidney disease, stage III (moderate): (13) Anxiety: (14) Depression: Plan UTI -Admit to med/telemetry -No leukocytosis, lactate negative -Dysuria and pressure when urinating upon admission -Treated with Augmentin for previous UTI (02/09/23) -Urine Cx (03/01/23): Klebsiella pneumoniae-ESBL (02/09/23 urine Cx had same result, very similar sensitivities) -Continue Ertapenem, 1000 mg, IV, daily; ID consulted and recommended completing a 5-day course of Ertapenem, patient's symptoms consistent w/ cystitis, Day 5 will be Dec -Blood culture, no growth after 48 hrs COVID positive -Cough and runny nose -CXR: no acute findings -No hypoxia, no steroids or remdesivir needed presently; O2 sats have been > 93 -Supportive managements for now, isolation, oxygen if needed Visual hallucinations -Pt had similar event in the past with UTI; no events since admission - likely due to infection/dehydration, treatment as above Paroxysmal atrial fibrillation -On Eliquis 2.5 mg BID Continue Amiodarone, Metoprol Calf pain/DVT prophylaxis - B/l Doppler US ordered of LEs; pt currently on Eliquis, 2.5 mg, BID - COVID+ infxn could increase DVT risk; pt may be under-dosed for DVT prophylaxis (60 kg < wgt < 80 kg, baseline Cr 0.7 - 1.0) CKD-stage 3 -Cr 0.97, baseline less than 1.15 -Avoid nephrotoxic agents Depression/Anxiety Continue home medications HTN Continue home medications GERD Continue home medications Code: Full code DVT prophylaxis: Eliquis 2.5 mg BID Diet: heart healthy Dispo: Med/telemetry Admission and Anticipated Discharge Date Admission Date: March 01, 2023 Supervising Physician Co-Signing Physician Notes Attending attestation Pt seen and examined in concert with Dr. Mcguire. In agreement with the documented findings as noted in the resident documentation with any exceptions or additions as noted here. Ongoing improvement in respiratory symptoms. At time of examination, AAO x 2 - place and time not self On examination, S1/S2 nl RRR no MCG. CTAB. Abd NT/ND BS+ve VS: 163/91, 66, 17, 36.5C, 94% RA Data: WBC 7.09, hgb 11.9, Cr 1 UTI - ID consult - complete course with ertapenem COVID - mild symptoms without hypoxia. Monitor with supportive care. Visual hallucinations - resolved Else see resident documentation as noted. Prabhu Staton is a 82 y/o female with PMH of HTN, Diastolic disfunction, LVH, GERD, depression, lumbar spinal stenosis, paroxysmal atrial fibrillation, CKD-stage 3, anemia, osteoporosis, rheumatoid arthritis and vitamin D deficiency, presenting to ED due to dysuria and visual hallucinations. Patient had a urine culture positive for klebsiella ESBL from 01/27. She was treated with amoxicillin 2 weeks ago. Patient endorsed (and caregiver corroborated) visual hallucinations last night, including animals and people, but none since admission; no more dysuria nor suprapubic pressure when voiding since admission. Pt tested positive for COVID in the ER. Pt feels like runny nose, congestion has improved. She still denies any fevers, shortness of breath, chest pain, palpitations, abdominal pain, was AAO x 4 this morning, pleasant, conversational. Weaker than yesterday. Review of Systems Review of Systems: as per HPI Constitutional: no fever, no chills and no body aches Respiratory: + cough (productive cough) and + chest c ongestion; no dyspnea and no hemoptysis Cardiovascular: no chest pain, no palpitations and no lightheadedness Gastrointestinal: no abdominal pain, no nausea, no vomiting and no constipation Genitourinary: + urinary frequency (baseline high freq due to Lasix); no dysuria (has not noticed since admission) Musculoskeletal: + back pain (baseline back pain) and + m yalgia (calf tenderness) Neurologic: no tingling and no numbness Physical Exam Constitutional: WD/WN, vitals as above Respiratory: normal respiratory effort, lungs clear to auscultation normal respiratory effort Auscultation: + wheezes Cardiovascular: RRR, no murmur, no edema Gastrointestinal (Abdomen): normal bowel sounds, soft, nontender, no hepatosplenomegaly Percussion/Palpation: abdomen soft; abdomen nontender Musculoskeletal: Extremities: + extremities abnormal to inspection (moderate residual calf pain b/l) Neurologic: awake; not confused and not obtunded Psychiatric: A+Ox3, euthymic affect Results & Data Results & Data Vital Signs (Past 12 Hours) Vital Signs Temp Pulse Pulse Resp BP Pulse Ox O2 Del Method 03/04/23 15:59 36.5 C 66 17 163/91 H 94 Room Air 03/04/23 14:52 68 03/04/23 10:08 36.4 C L 68 16 158/69 H 94 Room Air 03/04/23 08:23 Room Air 03/04/23 08:05 36.4 C L 68 16 175/87 H 95 Room Air 03/04/23 05:58 73 Resident Activity Tracking Resident Involvement: Resident Care Provided Care Provided: Adult Hospital Medicine
[2023-03-04] MEDS: ERTAPENEM SODIUM 1,000 MG in SYRINGE 0 ML IV SCH (17:25)
[2023-03-04] MEDS: FAMOTIDINE 40 MG TABLET PO SCH (21:02)
[2023-03-04] MEDS: rOPINIRole HCL 0.25 MG TABLET PO SCH (21:03)
[2023-03-05] MEDS: ACETAMINOPHEN 500 MG TAB PO SCH ×4 (02:07→20:05)
[2023-03-05 06:58] LABS: Basophils # (auto) 0.04 K/uL (0.00-0.20); Basophils % (auto) 0.4 %; Eosinophils # (auto) 0.03 K/uL (0.00-0.50); Eosinophils % (auto) 0.3 %; Hematocrit (blood only) 38.7 % (37.0-47.0); Hemoglobin 12.7 g/dl (12.0-16.0); Immature Granulocytes # (auto) 0.04 K/uL (0.01-0.20); Immature Granulocytes % (auto) 0.4 %; Lymphocytes # (auto) 1.01 K/uL (1.20-3.40); Lymphocytes % (auto) 11.4 %; Mean Corpuscular Hemoglobin 31.7 pg (25.0-34.0); Mean Corpuscular Hgb Conc 32.8 g/dL (32.0-36.0); Mean Corpuscular Volume 96.5 fL (80.0-100.0); Mean Platelet Volume 8.9 fL (9.4-12.4); Monocytes # (auto) 0.89 K/uL (0.11-0.59); Neutrophils # (auto) 6.88 K/uL (1.40-6.50); Neutrophils % (auto) 77.5 %; Platelet Count 238 K/uL (130-400); RDW Coefficient of Variation 12.8 % (11.5-14.5); RDW Standard Deviation 45.3 fL (36.4-46.3); Red Blood Count 4.01 M/uL (4.20-5.40); White Blood Count 8.89 K/ul (4.8-10.8)
[2023-03-05 07:11] LABS: BUN Creatinine Ratio 14.4 (10-20); Calcium 8.9 mg/dl (8.6-10.3); Creatinine Clr Calc Pharmacy 42.5 ml/min; Est GFR (African American) 68.5 ml/min; Est GFR (Non-African American) 59.1 ml/min
--- NOTE | 2023-03-05 07:46 | Hospitalist Progress Note ---
Date of Service March 05, 2023 Assessment & Plan (1) Complicated urinary tract infection: (2) Infection due to ESBL-producing Klebsiella pneumoniae: (3) COVID-19 virus infection: (4) Hallucination, visual: (5) Restless leg: (6) Rheumatoid arthritis: (7) PAF (paroxysmal atrial fibrillation): (8) Hypertension: (9) Hypercholesterolemia: (10) GERD without esophagitis: (11) Disc degeneration, lumbar: (12) Chronic kidney disease, stage III (moderate): (13) Anxiety: (14) Depression: Plan UTI -Admitted to med/telemetry -No leukocytosis, lactate negative -Dysuria and pressure when urinating upon admission, has since resolved -Treated with Augmentin for previous UTI (02/09/23) -Urine Cx (03/01/23): Klebsiella pneumoniae-ESBL (02/09/23 urine Cx had same result, very similar sensitivities) -Continue Ertapenem, 1000 mg, IV, daily; ID consulted and recommended completing a 5-day course of Ertapenem, patient's symptoms consistent w/ cystitis, Day 5 will be Dec 02 -Blood culture, no growth after 48 hrs COVID positive -Cough and runny nose -CXR: no acute findings -No hypoxia, no steroids or remdesivir needed presently; O2 sats have been > 91 -Supportive managements for now, isolation, oxygen if needed Metabolic encephalopathy (visual hallucinations) - Pt had similar event in the past with UTI; no hallucinatory events since admission - likely due to infection/dehydration, treatment as above Paroxysmal atrial fibrillation -On Eliquis 2.5 mg BID Continue Amiodarone, Metoprol Calf pain/DVT prophylaxis - pt currently on Eliquis, 2.5 mg, BID - COVID+ infxn could have increased DVT risk - b/l Doppler US neg for presence of blood clots CKD-stage 3 -Cr 0.97, baseline less than 1.15 -Avoid nephrotoxic agents Depression/Anxiety Continue home medications HTN Continue home medications GERD Continue home medications Code: Full code DVT prophylaxis: Eliquis 2.5 mg BID Diet: heart healthy Dispo: Med/telemetry Admission and Anticipated Discharge Date Admission Date: March 01, 2023 Supervising Physician Co-Signing Physician Notes Attending attestation Pt seen and examined in concert with Dr. Mcguire. In agreement with the documented findings as noted in the resident documentation with any exceptions or additions as noted here. In chair at bedside without specific complaint, though feeling overall weak. AAOx3 today at time of examination. On examination, S1/S2 nl RRR no MCG. CTAB. Abd NT/ND BS+v. Finger to nose testing was WNL VS: 145/83, 68, 18, 36.6C, 93 RA Data: WBC 8.89, Cr 0.90 UTI with metabolic encephalopathy (hallucinations, resolved)- ID consult - complete course with ertapenem expected tomorrow COVID - mild symptoms without hypoxia. Monitor with supportive care. Else see resident documentation as noted. Prabhu Staton is a 82 y/o female with PMH of HTN, Diastolic disfunction, LVH, GERD, depression, lumbar spinal stenosis, paroxysmal atrial fibrillation, CKD-stage 3, anemia, osteoporosis, rheumatoid arthritis and vitamin D deficiency, presenting to ED due to dysuria and visual hallucinations. Patient had a urine culture positive for klebsiella ESBL from 01/27. She was treated with amoxicillin 2 weeks ago. Patient endorsed (and caregiver corroborated) visual hallucinations last night, including animals and people, but none since admission; no more dysuria nor suprapubic pressure when voiding since admission. Pt tested positive for COVID in the ER. Pt feels like runny nose, congestion has improved. She still denies any fevers, shortness of breath, chest pain, palpitations, abdominal pain, was AAO x 4 this morning, pleasant, conversational. Patient again feels weak today, has asked for a bedside commode, experiencing muscles pain/aches. Review of Systems Review of Systems: as per HPI Constitutional: + body aches and + weakness; no fever an d no chills Respiratory: + cough (productive cough) and + chest c ongestion; no dyspnea and no hemoptysis Cardiovascular: no chest pain, no palpitations and no lightheadedness Gastrointestinal: no abdominal pain, no nausea, no vomiting and no constipation Genitourinary: + urinary frequency (baseline high freq due to Lasix); no dysuria (has not noticed since admission) Musculoskeletal: + back pain (baseline back pain) and + m yalgia (calf tenderness) Neurologic: no tingling and no numbness Physical Exam Constitutional: WD/WN, vitals as above Respiratory: normal respiratory effort, lungs clear to auscultation normal respiratory effort Cardiovascular: RRR, no murmur, no edema Gastrointestinal (Abdomen): normal bowel sounds, soft, nontender, no hepatosplenomegaly Percussion/Palpation: abdomen soft; abdomen nontender Musculoskeletal: Extremities: + extremities abnormal to inspection (moderate residual calf pain b/l) Neurologic: awake; not confused and not obtunded Psychiatric: A+Ox3, euthymic affect Results & Data Results & Data Vital Signs (Past 12 Hours) Vital Signs Temp Pulse Pulse Resp BP Pulse Ox O2 Del Method 03/05/23 02:03 36.6 C 77 18 149/62 H 96 Room Air 03/04/23 23:14 37 C 64 18 127/75 96 Room Air 03/04/23 22:00 73
[2023-03-05] MEDS: AMIODARONE 200 MG TAB PO SCH (08:07)
[2023-03-05] MEDS: DICLOFENAC SOD 1% GEL 100 GM TUBE EXT SCH (08:07)
[2023-03-05] MEDS: DULoxetine HCL 60 MG CAP PO SCH (08:12)
[2023-03-05] MEDS: MAGNESIUM OXIDE 400 MG TAB PO SCH ×2 (08:12→20:05)
[2023-03-05] MEDS: CEROVITE ADV FORMULA TAB PO SCH ×2 (08:12→20:05)
[2023-03-05] MEDS: PANTOprazole 40 MG TAB PO SCH (08:13)
[2023-03-05] MEDS: APIXABAN 2.5 MG TAB PO SCH ×2 (08:13→20:06)
[2023-03-05] MEDS: DULoxetine HCL 30 MG CAP PO SCH (08:13)
[2023-03-05] MEDS: METOCLOPRAMIDE HCL 5 MG TABLET PO SCH ×4 (08:13→20:05)
[2023-03-05] MEDS: METOPROLOL SUCC 25MG EXT REL TAB PO SCH (08:13)
[2023-03-05] MEDS: FERROUS SULFATE 325 MG TAB PO SCH (08:13)
[2023-03-05] MEDS: PRAVASTATIN SOD 40 MG TAB PO SCH (08:14)
[2023-03-05] MEDS: ERTAPENEM SODIUM 1,000 MG in SYRINGE 0 ML IV SCH (18:28)
[2023-03-05] MEDS: rOPINIRole HCL 0.25 MG TABLET PO SCH (20:04)
[2023-03-05] MEDS: FAMOTIDINE 40 MG TABLET PO SCH (20:05)
[2023-03-06] MEDS: ACETAMINOPHEN 500 MG TAB PO SCH ×4 (02:13→20:17)
[2023-03-06 07:07] LABS: Basophils # (auto) 0.05 K/uL (0.00-0.20); Basophils % (auto) 0.7 %; Eosinophils # (auto) 0.11 K/uL (0.00-0.50); Eosinophils % (auto) 1.5 %; Hematocrit (blood only) 39.5 % (37.0-47.0); Hemoglobin 12.7 g/dl (12.0-16.0); Immature Granulocytes % (auto) 1.3 %; Lymphocytes # (auto) 2.02 K/uL (1.20-3.40); Lymphocytes % (auto) 26.8 %; Mean Corpuscular Hemoglobin 31.4 pg (25.0-34.0); Mean Corpuscular Hgb Conc 32.2 g/dL (32.0-36.0); Mean Corpuscular Volume 97.8 fL (80.0-100.0); Mean Platelet Volume 9.1 fL (9.4-12.4); Monocytes % (auto) 10.6 %; Neutrophils # (auto) 4.45 K/uL (1.40-6.50); Neutrophils % (auto) 59.1 %; Platelet Count 241 K/uL (130-400); RDW Coefficient of Variation 13.2 % (11.5-14.5); RDW Standard Deviation 47.6 fL (36.4-46.3); Red Blood Count 4.04 M/uL (4.20-5.40); White Blood Count 7.53 K/ul (4.8-10.8)
[2023-03-06 07:21] LABS: BUN Creatinine Ratio 16.5 (10-20); Calcium 8.8 mg/dl (8.6-10.3); Creatinine Clr Calc Pharmacy 41.7 ml/min; Est GFR (African American) 67.6 ml/min; Est GFR (Non-African American) 58.3 ml/min; Potassium 4.5 mmol/L (3.5-5.1)
[2023-03-06] MEDS: METOCLOPRAMIDE HCL 5 MG TABLET PO SCH ×4 (09:12→20:18)
[2023-03-06] MEDS: DULoxetine HCL 60 MG CAP PO SCH (09:13)
[2023-03-06] MEDS: PRAVASTATIN SOD 40 MG TAB PO SCH (09:13)
[2023-03-06] MEDS: MAGNESIUM OXIDE 400 MG TAB PO SCH ×2 (09:13→20:18)
[2023-03-06] MEDS: AMIODARONE 200 MG TAB PO SCH (09:13)
[2023-03-06] MEDS: APIXABAN 2.5 MG TAB PO SCH ×2 (09:13→20:18)
[2023-03-06] MEDS: DICLOFENAC SOD 1% GEL 100 GM TUBE EXT SCH (09:13)
[2023-03-06] MEDS: PANTOprazole 40 MG TAB PO SCH (09:13)
[2023-03-06] MEDS: DULoxetine HCL 30 MG CAP PO SCH (09:13)
[2023-03-06] MEDS: METOPROLOL SUCC 25MG EXT REL TAB PO SCH (09:13)
[2023-03-06] MEDS: FERROUS SULFATE 325 MG TAB PO SCH (09:13)
[2023-03-06] MEDS: CEROVITE ADV FORMULA TAB PO SCH ×2 (09:14→20:18)
--- NOTE | 2023-03-06 11:44 | Discharge Summary ---
Date of Service March 06, 2023 Admission HPI Per Admitting Provider Brionna is a 82 y/o female with PMH of HTN, Diastolic disfunction , LVH, GERD, depression, lumbar spinal stenosis, Paroxysmal atrial fibrillation, CDK stage 3, anemia, osteoporosis, rheumatoid arthritis and vitamin D deficiency there due to dysuria and visual hallucinations. Patient have a urine culture positive for klebsiella ESBL from 01/27. She was treated with amoxicillin 2 weeks ago. Patient and caregiver refers visual hallucinations last night, including animals and people. She refers lower abdominal pressure when urinating. She refers hx of recurrent urinary tract infection in the past needing admission in the past. Caregiver was tested positive for COVID last week. Patient tested positive in the ER. She refers some sporadic cough and runny nose. She denied any fevers, shortness of breath, chest pain, palpitations, abdominal pain, or any other symptoms During the ER patient received one dose of Ertapenem. No leukocytosis, lactate normal. CXR ordered. No sepsis. No fever, respiration at 16, saturating at 98. Discharge Exam Constitutional WD/WN, vitals as above Respiratory normal respiratory effort, lungs clear to auscultation normal respiratory effort Auscultation: + wheezes Cardiovascular RRR, no murmur, no edema Gastrointestinal (Abdomen) normal bowel sounds, soft, nontender, no hepatosplenomegaly Percussion/Palpation: abdomen soft; abdomen nontender Musculoskeletal Extremities: + extremities abnormal to inspection (moderate residual calf pain b/l) Neurologic awake; not confused and not obtunded Psychiatric A+Ox3, euthymic affect Discharge Data Allergies Allergy/AdvReac Type Severity Reaction Status Date / Time No Known Allergies Allergy Verified 02/09/23 11:48 Consultations 03/01/23 17:28 ED Decision to Admit Stat 03/03/23 10:03 Consult Infectious Diseases Routine Ordered Studies 03/02/23 11:45 US venous doppler LE Stat Hospital Course (1) Complicated urinary tract infection: (2) Infection due to ESBL-producing Klebsiella pneumoniae: (3) COVID-19 virus infection: (4) Hallucination, visual: (5) Restless leg: (6) Rheumatoid arthritis: (7) PAF (paroxysmal atrial fibrillation): (8) Hypertension: (9) Hypercholesterolemia: (10) GERD without esophagitis: (11) Disc degeneration, lumbar: (12) Chronic kidney disease, stage III (moderate): (13) Anxiety: (14) Depression: Plan UTI -Admitted to med/telemetry -No leukocytosis, lactate negative -Dysuria and pressure when urinating upon admission, has since resolved -Treated with Augmentin for previous UTI (02/09/23) -Urine Cx (03/01/23): Klebsiella pneumoniae-ESBL (02/09/23 urine Cx had same result, very similar sensitivities) -Continue Ertapenem, 1000 mg, IV, daily; ID consulted and recommended completing a 5-day course of Ertapenem, patient's symptoms consistent w/ cystitis, Day 5 will be Mar 06 -Blood culture, no growth after 48 hrs COVID positive -Cough and runny nose -CXR: no acute findings -No hypoxia, no steroids or remdesivir needed presently; O2 sats have been > 91 -Supportive managements for now, isolation, oxygen if needed Metabolic encephalopathy (visual hallucinations) - Pt had similar event in the past with UTI; no hallucinatory events since admission - likely due to infection/dehydration, treatment as above Paroxysmal atrial fibrillation -On Eliquis 2.5 mg BID Continue Amiodarone, Metoprol Calf pain/DVT prophylaxis - pt currently on Eliquis, 2.5 mg, BID - COVID+ infxn could have increased DVT risk - b/l Doppler US neg for presence of blood clots CKD-stage 3 -Cr 0.97, baseline less than 1.15 -Avoid nephrotoxic agents Depression/Anxiety Continue home medications HTN Continue home medications GERD Continue home medications Code: Full code DVT prophylaxis: Eliquis 2.5 mg BID Diet: heart healthy Dispo: Med/telemetry Discharge Plan Discharge Items Reason For Visit: UTI Follow-up/Referrals: Kimber Prater DO [Primary Care Provider] - Medications and DC Order Prescriptions: No Action PreserVision AREDS [id number] capsule 1 cap PO BID diphenhydramine-acetaminophen [Tylenol PM Extra Strength] 25-500 mg tablet 1 tab PO HS PRN (Reason: Pain) magnesium oxide 400 mg (241.3 mg magnesium) tablet 400 mg PO BID Qty: 180 3RF metoprolol succinate 25 mg tablet extended release 24 hr 25 mg PO QAM Qty: 90 2RF ropinirole 0.25 mg tablet 0.25 mg PO HS Qty: 90 1RF Eliquis 2.5 mg tablet 2.5 mg PO BID Qty: 60 2RF duloxetine 60 mg capsule,delayed release(DR/EC) 60 mg PO QAM Qty: 90 1RF omeprazole 40 mg capsule,delayed release(DR/EC) 40 mg PO QAM Qty: 90 1RF pravastatin 40 mg tablet 40 mg PO DAILY Qty: 90 2RF metoclopramide HCl 5 mg tablet 5 mg PO QID 90 Days Qty: 120 1RF famotidine 40 mg tablet 40 mg PO HS Qty: 90 1RF Centrum Silver 0.4-300-250 mg-mcg-mcg tablet 1 tab PO DAILY ferrous sulfate [Iron (ferrous sulfate)] 325 mg (65 mg iron) tablet 325 mg PO DAILY Qty: 90 1RF acetaminophen [Tylenol Extra Strength] 500 mg tablet 500 mg PO Q6H Qty: 30 0RF diclofenac sodium 1.5 % drops 1 drp TOPICAL UD amiodarone 200 mg tablet 200 mg PO QAM duloxetine 30 mg capsule,delayed release(DR/EC) 30 mg PO QAM Admission Data Admit Date/Time: 03/01/23 18:36 Attending Provider: Joe Taylor Admit Provider: Moses Valentine Primary Care Provider: Kimber Prater Other Providers: Sumeet Escobar; Mehreen Clark
--- NOTE | 2023-03-06 17:09 | Hospitalist Progress Note ---
Date of Service March 06, 2023 Assessment & Plan (1) Complicated urinary tract infection: (2) Infection due to ESBL-producing Klebsiella pneumoniae: (3) COVID-19 virus infection: (4) Hallucination, visual: (5) Restless leg: (6) Rheumatoid arthritis: (7) PAF (paroxysmal atrial fibrillation): (8) Hypertension: (9) Hypercholesterolemia: (10) GERD without esophagitis: (11) Disc degeneration, lumbar: (12) Chronic kidney disease, stage III (moderate): (13) Anxiety: (14) Depression: Plan UTI -Admitted to med/telemetry -No leukocytosis, lactate negative -Dysuria and pressure when urinating upon admission, has since resolved -Treated with Augmentin for previous UTI (02/09/23) -Urine Cx (03/01/23): Klebsiella pneumoniae-ESBL (02/09/23 urine Cx had same result, very similar sensitivities) -Continue Ertapenem, 1000 mg, IV, daily; ID consulted and recommended completing a 5-day course of Ertapenem, patient's symptoms consistent w/ cystitis, final day of 5-day course of Ertapenem is today, will receive last dose at ~ 6.30 pm -Blood culture, no growth after 48 hrs COVID positive -Cough and runny nose -CXR: no acute findings -No hypoxia, no steroids or remdesivir needed presently; O2 sats have been > 90 -Supportive managements for now, isolation, oxygen if needed Metabolic encephalopathy (visual hallucinations) - Pt had similar event in the past with UTI; no hallucinatory events since ad mission - likely due to infection/dehydration, treatment as above Paroxysmal atrial fibrillation -On Eliquis 2.5 mg BID Continue Amiodarone, Metoprol Calf pain/DVT prophylaxis - pt currently on Eliquis, 2.5 mg, BID - COVID+ infxn possible incr DVT risk - b/l Doppler US neg for presence of blood clots CKD-stage 3 -Cr 0.97, baseline less than 1.15 - Cr lvls in hospital (0.9 - 1.06) -Avoid nephrotoxic agents Depression/Anxiety Continue home medications HTN Continue home medications GERD Continue home medications Code: Full code DVT prophylaxis: Eliquis 2.5 mg BID Diet: heart healthy Dispo: Med/telemetry Admission and Anticipated Discharge Date Admission Date: March 01, 2023 Supervising Physician Co-Signing Physician Notes Attending attestation Pt seen and examined in concert with Dr. Mcguire. In agreement with the documented findings as noted in the resident documentation with any exceptions or additions as noted here. In bed without complaint, AAOx4 today. On examination, S1/S2 nl RRR no MCG. CTAB. Abd NT/ND BS+v. str 5/5 grossly in bilateral UE and LE VS: 145/84, 72, 14, 37 C, 93 RA Data: WBC 7.53, Cr 0.91 UTI with metabolic encephalopathy (hallucinations, resolved)- ID consult - completed course with ertapenem COVID - mild symptoms without hypoxia. Monitor with supportive care. D/W Sarah, patient's daughter re: ongoing care. Patient declines re-assessment by rehab services in hospital after review of pros/cons and [facility] in the near term if required and is able to provide transport in AM Else see resident documentation as noted. Prabhu Staton is a 82 y/o female with PMH of HTN, Diastolic disfunction, LVH, GERD, depression, lumbar spinal stenosis, paroxysmal atrial fibrillation, CKD-stage 3, anemia, osteoporosis, rheumatoid arthritis and vitamin D deficiency, presenting to ED due to dysuria and visual hallucinations. Patient had a urine culture positive for klebsiella ESBL from 01/27. She was treated with amoxicillin 2 weeks ago. Patient endorsed (and caregiver corroborated) visual hallucinations last night, including animals and people, but none since admission; no more dysuria nor suprapubic pressure when voiding since admission. Pt tested positive for COVID in the ER. Pt feels like runny nose, congestion has improved. She still denies any fevers, shortness of breath, chest pain, palpitations, abdominal pain, was AAO x 4 this morning, pleasant, conversational. Patient again feels weak today, is usin bedside commode, experiencing muscles pain/aches, but is ready to be discharged tomorrow when daughter can pick her up. Review of Systems Review of Systems: as per HPI Constitutional: + body aches and + weakness; no fever an d no chills Respiratory: + cough (productive cough) and + chest c ongestion; no dyspnea and no hemoptysis Cardiovascular: no chest pain, no palpitations and no lightheadedness Gastrointestinal: no abdominal pain, no nausea, no vomiting and no constipation Genitourinary: + urinary frequency (baseline high freq due to Lasix); no dysuria (has not noticed since admission) Musculoskeletal: + back pain (baseline back pain) and + m yalgia (calf tenderness) Neurologic: no tingling and no numbness Physical Exam Constitutional: WD/WN, vitals as above Respiratory: normal respiratory effort, lungs clear to auscultation normal respiratory effort Cardiovascular: RRR, no murmur, no edema Gastrointestinal (Abdomen): normal bowel sounds, soft, nontender, no hepatosplenomegaly Percussion/Palpation: abdomen soft; abdomen nontender Musculoskeletal: Extremities: + extremities abnormal to inspection (moderate residual calf pain b/l) Neurologic: awake; not confused and not obtunded Psychiatric: A+Ox3, euthymic affect Results & Data Results & Data Vital Signs (Past 12 Hours) Vital Signs Temp Pulse Pulse Resp BP Pulse Ox O2 Del Method 03/06/23 16:17 72 03/06/23 15:23 37.0 C 69 14 145/84 H 93 Room Air 03/06/23 11:22 36.9 C 84 16 176/98 H 91 Room Air 03/06/23 09:45 75 156/86 H 03/06/23 07:45 69 03/06/23 07:00 37.1 C 72 14 174/90 H 95 Room Air
[2023-03-06] MEDS: ERTAPENEM SODIUM 1,000 MG in SYRINGE 0 ML IV SCH (17:24)
[2023-03-06] MEDS: FAMOTIDINE 40 MG TABLET PO SCH (20:17)
[2023-03-06] MEDS: rOPINIRole HCL 0.25 MG TABLET PO SCH (20:18)
[2023-03-07] MEDS: ACETAMINOPHEN 500 MG TAB PO SCH ×4 (02:28→20:42)
[2023-03-07 07:02] LABS: Basophils # (auto) 0.05 K/uL (0.00-0.20); Basophils % (auto) 0.6 %; Eosinophils # (auto) 0.09 K/uL (0.00-0.50); Eosinophils % (auto) 1.1 %; Hematocrit (blood only) 37.7 % (37.0-47.0); Hemoglobin 12.4 g/dl (12.0-16.0); Immature Granulocytes # (auto) 0.04 K/uL (0.01-0.20); Immature Granulocytes % (auto) 0.5 %; Lymphocytes # (auto) 1.87 K/uL (1.20-3.40); Mean Corpuscular Hgb Conc 32.9 g/dL (32.0-36.0); Mean Corpuscular Volume 97.4 fL (80.0-100.0); Mean Platelet Volume 9.1 fL (9.4-12.4); Monocytes # (auto) 0.83 K/uL (0.11-0.59); Monocytes % (auto) 9.8 %; Neutrophils # (auto) 5.63 K/uL (1.40-6.50); Platelet Count 230 K/uL (130-400); RDW Coefficient of Variation 13.1 % (11.5-14.5); RDW Standard Deviation 46.8 fL (36.4-46.3); Red Blood Count 3.87 M/uL (4.20-5.40); White Blood Count 8.51 K/ul (4.8-10.8)
[2023-03-07 07:15] LABS: BUN Creatinine Ratio 16.8 (10-20); Calcium 8.4 mg/dl (8.6-10.3); Creatinine Clr Calc Pharmacy 39.1 ml/min; Est GFR (African American) 64.2 ml/min; Est GFR (Non-African American) 55.4 ml/min
--- NOTE | 2023-03-07 07:28 | Discharge Summary ---
Date of Service March 07, 2023 Discharge Exam Constitutional WD/WN, vitals as above Respiratory normal respiratory effort, lungs clear to auscultation Cardiovascular RRR, no murmur, no edema Gastrointestinal (Abdomen) normal bowel sounds, soft, nontender, no hepatosplenomegaly Discharge Data Allergies Allergy/AdvReac Type Severity Reaction Status Date / Time No Known Allergies Allergy Verified 02/09/23 11:48 Consultations 03/01/23 17:28 ED Decision to Admit Stat 03/03/23 10:03 Consult Infectious Diseases Routine Ordered Studies 03/02/23 11:45 US venous doppler [facility] Stat Hospital Course (1) Complicated urinary tract infection: (2) Infection due to ESBL-producing Klebsiella pneumoniae: (3) COVID-19 virus infection: (4) Hallucination, visual: (5) Restless leg: (6) Rheumatoid arthritis: (7) PAF (paroxysmal atrial fibrillation): (8) Hypertension: (9) Hypercholesterolemia: (10) GERD without esophagitis: (11) Disc degeneration, lumbar: (12) Chronic kidney disease, stage III (moderate): (13) Anxiety: (14) Depression: Discharge Plan Discharge Items Reason For Visit: UTI Follow-up/Referrals: Kimber Prater DO [Primary Care Provider] - Medications and DC Order Prescriptions: No Action PreserVision AREDS [id number] capsule 1 cap PO BID diphenhydramine-acetaminophen [Tylenol PM Extra Strength] 25-500 mg tablet 1 tab PO HS PRN (Reason: Pain) magnesium oxide 400 mg (241.3 mg magnesium) tablet 400 mg PO BID Qty: 180 3RF metoprolol succinate 25 mg tablet extended release 24 hr 25 mg PO QAM Qty: 90 2RF ropinirole 0.25 mg tablet 0.25 mg PO HS Qty: 90 1RF Eliquis 2.5 mg tablet 2.5 mg PO BID Qty: 60 2RF duloxetine 60 mg capsule,delayed release(DR/EC) 60 mg PO QAM Qty: 90 1RF omeprazole 40 mg capsule,delayed release(DR/EC) 40 mg PO QAM Qty: 90 1RF pravastatin 40 mg tablet 40 mg PO DAILY Qty: 90 2RF metoclopramide HCl 5 mg tablet 5 mg PO QID 90 Days Qty: 120 1RF famotidine 40 mg tablet 40 mg PO HS Qty: 90 1RF Centrum Silver 0.4-300-250 mg-mcg-mcg tablet 1 tab PO DAILY ferrous sulfate [Iron (ferrous sulfate)] 325 mg (65 mg iron) tablet 325 mg PO DAILY Qty: 90 1RF acetaminophen [Tylenol Extra Strength] 500 mg tablet 500 mg PO Q6H Qty: 30 0RF diclofenac sodium 1.5 % drops 1 drp TOPICAL UD amiodarone 200 mg tablet 200 mg PO QAM duloxetine 30 mg capsule,delayed release(DR/EC) 30 mg PO QAM Admission Data Admit Date/Time: 03/01/23 18:36 Attending Provider: oJe Taylor Admit Provider: Moses Valentine Primary Care Provider: Kimber Prater Other Providers: Sumeet Escobar; Mehreen Clark Resident Activity Tracking Resident Involvement: Resident Care Provided Care Provided: Adult Hospital Medicine
[2023-03-07] MEDS: METOCLOPRAMIDE HCL 5 MG TABLET PO SCH ×4 (08:19→20:43)
[2023-03-07] MEDS: MAGNESIUM OXIDE 400 MG TAB PO SCH ×2 (08:19→20:43)
[2023-03-07] MEDS: CEROVITE ADV FORMULA TAB PO SCH ×2 (08:20→20:44)
[2023-03-07] MEDS: DULoxetine HCL 30 MG CAP PO SCH (08:20)
[2023-03-07] MEDS: FERROUS SULFATE 325 MG TAB PO SCH (08:20)
[2023-03-07] MEDS: APIXABAN 2.5 MG TAB PO SCH ×2 (08:20→20:44)
[2023-03-07] MEDS: METOPROLOL SUCC 25MG EXT REL TAB PO SCH (08:20)
[2023-03-07] MEDS: PANTOprazole 40 MG TAB PO SCH (08:20)
[2023-03-07] MEDS: PRAVASTATIN SOD 40 MG TAB PO SCH (08:20)
[2023-03-07] MEDS: AMIODARONE 200 MG TAB PO SCH (08:20)
[2023-03-07] MEDS: DULoxetine HCL 60 MG CAP PO SCH (08:21)
[2023-03-07] MEDS: DICLOFENAC SOD 1% GEL 100 GM TUBE EXT SCH (08:21)
--- NOTE | 2023-03-07 14:15 | CT Scan Report ---
HEAD CT NONCONTRAST CT DOSE: 625.8 mGy.cm HISTORY: fall TECHNIQUE: Multiaxial CT images of the head were performed without the use of intravenous contrast. A utomated exposure control was utilized for this study. A dose lowering technique was utilized adheri ng to the principles of ALARA. Comparison: Head CT 11/02/2021. Findings: The paranasal sinuses and mastoid air cells are clear. The calvarium and skull base are int act. There is no mass, hematoma, midline shift, acute infarct. White matter hypodensity is nonspecifi c but suggestive of microvascular ischemic change. The ventricles and sulci demonstrate mild age-rela natanael involutional changes. Impression: No acute intracranial abnormality. Atrophy and microvascular ischemic changes. ACT 112: Negative or not required by law. Electronically signed by: Erwin Ha M.D. 03/07/2023 2:12 PM
--- NOTE | 2023-03-07 14:21 | XRay Report ---
XR hip [place] 2v w pelvis CLINICAL HISTORY: fall, hip pain COMPARISON STUDY: Pelvis and hips 10/24/2021. FINDINGS: No acute fracture or dislocation within the pelvis or hips. Postoperative changes again not ed within the bilateral hips with old posttraumatic changes. There are old, healed bilateral pubic ri ng fractures. The sacrum appears intact. The bones are osteopenic. Mass or calcifications are noted. Bilateral hip hardware appears intact. IMPRESSION: No change compared to the prior study. No acute fractures within the pelvis or hips. ACT 112: Negative or not required by law. Electronically signed by: Erwin Ha M.D. 03/07/2023 2:20 PM
--- NOTE | 2023-03-07 17:31 | Hospitalist Progress Note ---
Date of Service March 07, 2023 Assessment & Plan (1) Complicated urinary tract infection: (2) Infection due to ESBL-producing Klebsiella pneumoniae: (3) COVID-19 virus infection: (4) Hallucination, visual: (5) Restless leg: (6) Rheumatoid arthritis: (7) PAF (paroxysmal atrial fibrillation): (8) Hypertension: (9) Hypercholesterolemia: (10) GERD without esophagitis: (11) Disc degeneration, lumbar: (12) Chronic kidney disease, stage III (moderate): (13) Anxiety: (14) Depression: [place] [facility] [place] [address] Hospitalist Progress Note ISigned Patient: WARREN GUZMAN Admit Date: 03/01/23 MR#: [id number] Att Phy: Joe Taylor MD Acct ID: [id number] Julianna Phy: Kimber Prater DO Date: 1940 Fam Phy: Age: 82 Location: 2N Sex: F Room/Bed: [facility] cc: ~ *NOTICE TO RECEIVING REPUBLICAN/AGENCY This information is strictly Confidential and protected under [place] law. [place] law prohibits you from making any further disclosure of this information unless further disclosure is expressly permitted by the written consent of the person to whom it pertains or is authorized by law. A general authorization for the release of medical or other information is not sufficient for this purpose. Hospital accepts no responsibility if the information is made available to any other person, INCLUDING THE PATIENT. Date of Service March 06, 2023 Assessment & Plan (1) Complicated urinary tract infection: (2) Infection due to ESBL-producing Klebsiella pneumoniae: (3) COVID-19 virus infection: (4) Hallucination, visual: (5) Restless leg: (6) Rheumatoid arthritis: (7) PAF (paroxysmal atrial fibrillation): (8) Hypertension: (9) Hypercholesterolemia: (10) GERD without esophagitis: (11) Disc degeneration, lumbar: (12) Chronic kidney disease, stage III (moderate): (13) Anxiety: (14) Depression: Plan UTI -Admitted to med/telemetry -No leukocytosis, lactate negative -Dysuria and pressure when urinating upon admission, has since resolved -Treated with Augmentin for previous UTI (02/09/23) -Urine Cx (03/01/23): Klebsiella pneumoniae-ESBL (02/09/23 urine Cx had same result, very similar sensitivities) -Continue Ertapenem, 1000 mg, IV, daily; ID consulted and recommended completing a 5-day course of Ertapenem, patient's symptoms consistent w/ cystitis, final day of 5-day course of Ertapenem is today, will receive last dose at ~ 6.30 pm -Blood culture, no growth after 48 hrs - Noted in d/c orders to F/U w/ PCP AND CREATIVE DEVELOPER, after pt mentioned bulging of bladder into vagina for last 2 months, suggestive of cystocele and possible source of recurrent UTIs - possible PT re-eval? In-hospital fall CT-Head --> no acute abnormalities Hip/Pelvis XRay --> no acute fractures noted COVID positive -Cough and runny nose -CXR: no acute findings -No hypoxia, no steroids or remdesivir needed presently; O2 sats have been > 90 -Supportive managements for now, isolation, oxygen if needed Metabolic encephalopathy (visual hallucinations) - Pt had similar event in the past with UTI; no hallucinatory events since [facility] - likely due to infection/dehydration, treatment as above - Pt w/ waxing and waning mental status Paroxysmal atrial fibrillation -On Eliquis 2.5 mg BID Continue Amiodarone, Metoprol Calf pain/DVT prophylaxis - pt currently on Eliquis, 2.5 mg, BID - COVID+ infxn possible incr DVT risk - b/l Doppler US neg for presence of blood clots CKD-stage 3 -Cr 0.97, baseline less than 1.15 - Cr lvls in hospital (0.9 - 1.06) -Avoid nephrotoxic agents Depression/Anxiety Continue home medications HTN Continue home medications GERD Continue home medications Code: Full code DVT prophylaxis: Eliquis 2.5 mg BID Diet: heart healthy Dispo: Med/telemetry Admission and Anticipated Discharge Date Admission Date: March 01, 2023 Prabhu Staton is a 82 y/o female with PMH of HTN, Diastolic disfunction, LVH, GERD, depression, lumbar spinal stenosis, paroxysmal atrial fibrillation, CKD-stage 3, anemia, osteoporosis, rheumatoid arthritis and vitamin D deficiency, presenting to ED due to dysuria and visual hallucinations. Patient had a urine culture positive for klebsiella ESBL from 10/25. She was treated with amoxicillin 2 weeks ago. Patient endorsed (and caregiver corroborated) visual hallucinations last night, including animals and people, but none since admission; no more dysuria nor suprapubic pressure when voiding since admission. Pt tested positive for COVID in the ER. Pt feels like runny nose, congestion has improved. She still denies any fevers, shortness of breath, chest pain, palpitations, abdominal pain, was AAO x 4 this morning, pleasant, conversational. Patient again feels weak today, is using bedside commode, experiencing muscle pain/aches, somewhat increased frailty since admission. Patient volunteered today that last 2 months she'd noticed bladder bulging into vagina, suggests possible cystocele and cause for recurrent UTIs; noted in d/c summary to follow up w/ PCP AND CREATIVE DEVELOPER. Review of Systems Review of Systems: as per HPI Constitutional: + body aches and + weakness; no fever an d no chills Respiratory: + cough (productive cough) and + chest c ongestion; no dyspnea and no hemoptysis Cardiovascular: no chest pain, no palpitations and no lightheadedness Gastrointestinal: no abdominal pain, no nausea, no vomiting and no constip ation Genitourinary: + urinary frequency (baseline high freq due to Lasix); no dysuria (has not noticed since admission) Musculoskeletal: + back pain (baseline back pain) and + m yalgia (calf tenderness) Neurologic: no tingling and no numbness Physical Exam Constitutional: WD/WN, vitals as above Respiratory: normal respiratory effort, lungs clear to auscultation Cardiovascular: RRR, no murmur, no edema Gastrointestinal (Abdomen): normal bowel sounds, soft, nontender, no hepatosplenomegaly Results & Data Results & Data Vital Signs (Past 12 Hours) Vital Signs Temp Pulse Resp BP BP Pulse Ox O2 Del Method 03/07/23 15:34 81 16 142/80 H 92 Room Air 03/07/23 14:45 81 16 142/80 H 92 Room Air 03/07/23 11:23 36.6 C 80 14 165/97 H 95 Room Air 03/07/23 07:48 36.3 C L 81 15 170/82 H 90 Room Air
[2023-03-07] MEDS: ERTAPENEM SODIUM 1,000 MG in SYRINGE 0 ML IV SCH (18:49)
[2023-03-07] MEDS: FAMOTIDINE 40 MG TABLET PO SCH (20:44)
[2023-03-07] MEDS: rOPINIRole HCL 0.25 MG TABLET PO SCH (20:44)
[2023-03-07] MEDS ORDERED: OLANZapine 10 MG/2.1 ML SDV IM STA (22:22)
[2023-03-08] MEDS: ACETAMINOPHEN 500 MG TAB PO SCH ×4 (01:51→20:15)
[2023-03-08] MEDS: CEROVITE ADV FORMULA TAB PO SCH ×2 (08:58→20:16)
[2023-03-08] MEDS: MAGNESIUM OXIDE 400 MG TAB PO SCH ×2 (08:58→20:17)
[2023-03-08] MEDS: METOPROLOL SUCC 25MG EXT REL TAB PO SCH (08:58)
[2023-03-08] MEDS: DULoxetine HCL 60 MG CAP PO SCH (08:58)
[2023-03-08] MEDS: METOCLOPRAMIDE HCL 5 MG TABLET PO SCH ×4 (08:58→20:18)
[2023-03-08] MEDS: AMIODARONE 200 MG TAB PO SCH (08:58)
[2023-03-08] MEDS: DICLOFENAC SOD 1% GEL 100 GM TUBE EXT SCH (08:58)
[2023-03-08] MEDS: APIXABAN 2.5 MG TAB PO SCH ×2 (08:58→20:16)
[2023-03-08] MEDS: PRAVASTATIN SOD 40 MG TAB PO SCH (08:58)
[2023-03-08] MEDS: FERROUS SULFATE 325 MG TAB PO SCH (08:58)
[2023-03-08] MEDS: PANTOprazole 40 MG TAB PO SCH (08:58)
[2023-03-08] MEDS: DULoxetine HCL 30 MG CAP PO SCH (08:58)
[2023-03-08 14:41] LABS: Basophils # (auto) 0.05 K/uL (0.00-0.20); Basophils % (auto) 0.3 %; Eosinophils # (auto) 0.03 K/uL (0.00-0.50); Eosinophils % (auto) 0.2 %; Hemoglobin 13.5 g/dl (12.0-16.0); Immature Granulocytes # (auto) 0.06 K/uL (0.01-0.20); Immature Granulocytes % (auto) 0.4 %; Lymphocytes # (auto) 1.53 K/uL (1.20-3.40); Lymphocytes % (auto) 9.9 %; Mean Corpuscular Hemoglobin 31.8 pg (25.0-34.0); Mean Corpuscular Hgb Conc 33.8 g/dL (32.0-36.0); Mean Corpuscular Volume 94.3 fL (80.0-100.0); Mean Platelet Volume 9.1 fL (9.4-12.4); Monocytes # (auto) 1.14 K/uL (0.11-0.59); Monocytes % (auto) 7.4 %; Neutrophils # (auto) 12.61 K/uL (1.40-6.50); Neutrophils % (auto) 81.8 %; Platelet Count 262 K/uL (130-400); RDW Coefficient of Variation 13.1 % (11.5-14.5); RDW Standard Deviation 44.8 fL (36.4-46.3); Red Blood Count 4.24 M/uL (4.20-5.40); White Blood Count 15.42 K/ul (4.8-10.8)
[2023-03-08 14:57] LABS: Calcium 9.2 mg/dl (8.6-10.3); Potassium 4.1 mmol/L (3.5-5.1)
[2023-03-08 15:02] LABS: BUN Creatinine Ratio 15.3 (10-20); Creatinine Clr Calc Pharmacy 33.5 ml/min; Est GFR (African American) 53.2 ml/min; Est GFR (Non-African American) 45.9 ml/min
[2023-03-08] MEDS ORDERED: ONDANSETRON 4 MG OD TAB PO PRN (15:34)
--- NOTE | 2023-03-08 18:21 | Hospitalist Progress Note ---
Date of Service March 08, 2023 Assessment & Plan (1) Complicated urinary tract infection: (2) Infection due to ESBL-producing Klebsiella pneumoniae: (3) COVID-19 virus infection: (4) Hallucination, visual: (5) Restless leg: (6) Rheumatoid arthritis: (7) PAF (paroxysmal atrial fibrillation): (8) Hypertension: (9) Hypercholesterolemia: (10) GERD without esophagitis: (11) Disc degeneration, lumbar: (12) Chronic kidney disease, stage III (moderate): (13) Anxiety: (14) Depression: [place] [address] Hospitalist Progress Note ISigned Patient: WARREN GUZMAN Admit Date: 03/01/23 MR#: [id number] Att Phy: Joe Taylor MD Acct ID: [id number] Julianna Phy: Kimber Prater DO Date: 1940 Fam Phy: Age: 82 Location: 2N Sex: F Room/Bed: [facility] cc: ~ *NOTICE TO RECEIVING DEMOCRAT/AGENCY This information is strictly Confidential and protected under [place] law. [place] law prohibits you from making any further disclosure of this information unless further disclosure is expressly permitted by the written consent of the person to whom it pertains or is authorized by law. A general authorization for the release of medical or other information is not sufficient for this purpose. Hospital accepts no responsibility if the information is made available to any other person, INCLUDING THE PATIENT. Date of Service March 06, 2023 Assessment & Plan (1) Complicated urinary tract infection: (2) Infection due to ESBL-producing Klebsiella pneumoniae: (3) COVID-19 virus infection: (4) Hallucination, visual: (5) Restless leg: (6) Rheumatoid arthritis: (7) PAF (paroxysmal atrial fibrillation): (8) Hypertension: (9) Hypercholesterolemia: (10) GERD without esophagitis: (11) Disc degeneration, lumbar: (12) Chronic kidney disease, stage III (moderate): (13) Anxiety: (14) Depression: Plan UTI -Admitted to med/telemetry -No leukocytosis, lactate negative -Dysuria and pressure when urinating upon admission, has since resolved -Treated with Augmentin for previous UTI (02/09/23) -Urine Cx (03/01/23): Klebsiella pneumoniae-ESBL (02/09/23 urine Cx had same result, very similar sensitivities) -Continue Ertapenem, 1000 mg, IV, daily; ID consulted and recommended course of Ertapenem, patient's symptoms consistent w/ cystitis, completed 6-day course of Ertapenem -Blood culture, no growth after 48 hrs - Noted in d/c orders to F/U w/ PCP AND MONUMENTAL STONEMASON, after pt mentioned bulging of bladder into vagina for last 2 months, suggestive of cystocele and possible source of recurrent UTIs In-hospital fall CT-Head --> no acute abnormalities Hip/Pelvis XRay --> no acute fractures noted PT Re-eval noted decline in functional status since [facility] and recommend short-term rehab for discharge COVID positive -Cough and runny nose -CXR: no acute findings -No hypoxia, no steroids or remdesivir needed presently; O2 sats have been > 90 -Supportive managements for now, isolation, oxygen if needed Metabolic encephalopathy (visual hallucinations) - Pt had similar event in the past with UTI; no hallucinatory events since admission - likely due to infection/dehydration, treatment as above - Pt w/ waxing and waning mental status Paroxysmal atrial fibrillation -On Eliquis 2.5 mg BID Continue Amiodarone, Metoprol Calf pain/DVT prophylaxis - pt currently on Eliquis, 2.5 mg, BID - COVID+ infxn possible incr DVT risk - b/l Doppler US neg for presence of blood clots CKD-stage 3 -Cr 0.97, baseline less than 1.15 - Cr lvls in hospital (0.9 - 1.11) -Avoid nephrotoxic agents Depression/Anxiety Continue home medications HTN Continue home medications GERD Continue home medications Code: Full code DVT prophylaxis: Eliquis 2.5 mg BID Diet: heart healthy Dispo: Med/telemetry Admission and Anticipated Discharge Date Admission Date: March 01, 2023 Supervising Physician Co-Signing Physician Notes Attending attestation Pt seen and examined in concert with Dr. Mcguire. In agreement with the documented findings as noted in the resident documentation with any exceptions or additions as noted here. Confused, laying diagonally across the bed with her legs hanging over the railsassisted her to get back into a more comfortable position. No meaningful HPI review of systems obtainable. Vitals noted, in general she is awake, but very confused. Does not appear to be in any distress. HEENT normocephalic atraumatic mucous membranes moist. Breathing unlabored no accessory muscle use good effort. Skin shows no rashes no pallor or icterus. Neuro without focal deficits. UTI with metabolic encephalopathy - ID consult - completed course with ertapenem COVID - mild symptoms without hypoxia. Monitor with supportive care. Delirium/metabolic encephalopathy unfortunately worsened, patient does not appear to be safe to be home at this point, anticipate need for SNF at her current state. otherwise as above Prabhu Staton is a 82 y/o female with PMH of HTN, Diastolic disfunction, LVH, GERD, depression, lumbar spinal stenosis, paroxysmal atrial fibrillation, CKD-stage 3, anemia, osteoporosis, rheumatoid arthritis and vitamin D deficiency, presenting to ED due to dysuria and visual hallucinations. Patient had a urine culture positive for klebsiella ESBL from 01/27. She was treated with amoxicillin 2 weeks ago. Patient endorsed (and caregiver corroborated) visual hallucinations last night, including animals and people, but none since admission; no more dysuria nor suprapubic pressure when voiding since admission. Pt tested positive for COVID in the ER. Pt feels like runny nose, congestion has improved. She still denies any fevers, shortness of breath, chest pain, palpitations, abdominal pain, was AAO x 4 this morning, pleasant, conversational. Patient again feels weak today, is using bedside commode, experiencing muscle pain/aches, somewhat increased frailty since admission. Patient volunteered today that last 2 months she'd noticed bladder bulging into vagina, suggests possible cystocele and cause for recurrent UTIs; noted in d/c summary to follow up w/ PCP AND MONUMENTAL STONEMASON. Review of Systems Review of Systems: as per HPI Constitutional: + body aches and + weakness; no fever an d no chills Respiratory: + cough (productive cough) and + chest c ongestion; no dyspnea and no hemoptysis Cardiovascular: no chest pain, no palpitations and no lightheadedness Gastrointestinal: no abdominal pain, no nausea, no vomiting and no constip ation Genitourinary: + urinary frequency (baseline high freq due to Lasix); no dysuria (has not noticed since admission) Musculoskeletal: + back pain (baseline back pain) and + m yalgia (calf tenderness) Neurologic: no tingling and no numbness Physical Exam Constitutional: WD/WN, vitals as above Respiratory: normal respiratory effort, lungs clear to auscultation Cardiovascular: RRR, no murmur, no edema Gastrointestinal (Abdomen): Inspection/Auscultation: abdomen normal to inspection and normal bowel sounds Percussion/Palpation: + abdomen tender (mild suprapubic tenderness) Psychiatric: Orientation: alert and oriented x 3 Affect: + anxious affect and + angry affect (patient is intermittently resistant to care) Results & Data Results & Data Vital Signs (Past 12 Hours) Vital Signs Temp Pulse Pulse Resp BP Pulse Ox O2 Del Method 03/08/23 16:34 36.9 C 87 16 120/75 96 Room Air 03/08/23 15:30 91 H 03/08/23 11:38 36.8 C 82 16 128/85 94 Room Air 03/08/23 09:00 Room Air 03/08/23 08:50 36.7 C 81 16 148/91 H 95 Room Air 03/08/23 08:08 89
--- NOTE | 2023-03-08 18:26 | Billing Data ---
Date of Service March 08, 2023 Coding Level of Care Code 70696 SUB INP/OBS CARE
[2023-03-08] MEDS: FAMOTIDINE 40 MG TABLET PO SCH (20:17)
[2023-03-08] MEDS: rOPINIRole HCL 0.25 MG TABLET PO SCH (20:17)
[2023-03-09] MEDS: ACETAMINOPHEN 500 MG TAB PO SCH ×4 (02:04→20:33)
[2023-03-09 08:21] LABS: Basophils # (auto) 0.06 K/uL (0.00-0.20); Basophils % (auto) 0.4 %; Eosinophils # (auto) 0.02 K/uL (0.00-0.50); Eosinophils % (auto) 0.1 %; Hematocrit (blood only) 37.6 % (37.0-47.0); Hemoglobin 12.7 g/dl (12.0-16.0); Immature Granulocytes # (auto) 0.07 K/uL (0.01-0.20); Immature Granulocytes % (auto) 0.4 %; Lymphocytes # (auto) 1.54 K/uL (1.20-3.40); Lymphocytes % (auto) 9.4 %; Mean Corpuscular Hemoglobin 32.3 pg (25.0-34.0); Mean Corpuscular Hgb Conc 33.8 g/dL (32.0-36.0); Mean Corpuscular Volume 95.7 fL (80.0-100.0); Mean Platelet Volume 9.6 fL (9.4-12.4); Monocytes # (auto) 1.33 K/uL (0.11-0.59); Monocytes % (auto) 8.1 %; Neutrophils % (auto) 81.6 %; Platelet Count 242 K/uL (130-400); RDW Coefficient of Variation 13.2 % (11.5-14.5); RDW Standard Deviation 46.3 fL (36.4-46.3); Red Blood Count 3.93 M/uL (4.20-5.40); White Blood Count 16.32 K/ul (4.8-10.8)
[2023-03-09] MEDS: DULoxetine HCL 30 MG CAP PO SCH (08:26)
[2023-03-09] MEDS: METOPROLOL SUCC 25MG EXT REL TAB PO SCH (08:26)
[2023-03-09] MEDS: AMIODARONE 200 MG TAB PO SCH (08:27)
[2023-03-09] MEDS: CEROVITE ADV FORMULA TAB PO SCH ×2 (08:27→20:34)
[2023-03-09] MEDS: PANTOprazole 40 MG TAB PO SCH (08:27)
[2023-03-09] MEDS: APIXABAN 2.5 MG TAB PO SCH ×2 (08:27→20:36)
[2023-03-09] MEDS: FERROUS SULFATE 325 MG TAB PO SCH (08:27)
[2023-03-09] MEDS: METOCLOPRAMIDE HCL 5 MG TABLET PO SCH ×4 (08:28→20:35)
[2023-03-09] MEDS: DICLOFENAC SOD 1% GEL 100 GM TUBE EXT SCH (08:28)
[2023-03-09] MEDS: MAGNESIUM OXIDE 400 MG TAB PO SCH ×2 (08:28→20:35)
[2023-03-09] MEDS: PRAVASTATIN SOD 40 MG TAB PO SCH (08:28)
[2023-03-09] MEDS: DULoxetine HCL 60 MG CAP PO SCH (08:29)
[2023-03-09 08:45] LABS: BUN Creatinine Ratio 19.8 (10-20); Calcium 9.5 mg/dl (8.6-10.3); Est GFR (African American) 50.4 ml/min; Est GFR (Non-African American) 43.5 ml/min; Magnesium 2.6 mg/dl (1.7-2.4); Potassium 4.7 mmol/L (3.5-5.1)
--- NOTE | 2023-03-09 10:59 | Hospitalist Progress Note ---
Date of Service March 09, 2023 Assessment & Plan (1) Complicated urinary tract infection: (2) Infection due to ESBL-producing Klebsiella pneumoniae: (3) COVID-19 virus infection: (4) Hallucination, visual: (5) Restless leg: (6) Rheumatoid arthritis: (7) PAF (paroxysmal atrial fibrillation): (8) Hypertension: (9) Hypercholesterolemia: (10) GERD without esophagitis: (11) Disc degeneration, lumbar: (12) Chronic kidney disease, stage III (moderate): (13) Anxiety: (14) Depression: [place] [facility] [place] [address] Hospitalist Progress Note ISigned Patient: WARREN GUZMAN Admit Date: 03/01/23 MR#: [id number] Att Phy: Joe Taylor MD Acct ID: [id number] Julianna Phy: Kimber Prater DO Date: 1940 Fam Phy: Age: 82 Location: 2N Sex: F Room/Bed: [facility] cc: ~ *NOTICE TO RECEIVING ALLIANCE PARTY/AGENCY This information is strictly Confidential and protected under [place] law. [place] law prohibits you from making any further disclosure of this information unless further disclosure is expressly permitted by the written consent of the person to whom it pertains or is authorized by law. A general authorization for the release of medical or other information is not sufficient for this purpose. Hospital accepts no responsibility if the information is made available to any other person, INCLUDING THE PATIENT. Date of Service March 06, 2023 Assessment & Plan (1) Complicated urinary tract infection: (2) Infection due to ESBL-producing Klebsiella pneumoniae: (3) COVID-19 virus infection: (4) Hallucination, visual: (5) Restless leg: (6) Rheumatoid arthritis: (7) PAF (paroxysmal atrial fibrillation): (8) Hypertension: (9) Hypercholesterolemia: (10) GERD without esophagitis: (11) Disc degeneration, lumbar: (12) Chronic kidney disease, stage III (moderate): (13) Anxiety: (14) Depression: Plan UTI -Admitted to med/telemetry -No leukocytosis, lactate negative -Dysuria and pressure when urinating upon admission, has since resolved -Treated with Augmentin for previous UTI (02/09/23) -Urine Cx (03/01/23): Klebsiella pneumoniae-ESBL (02/09/23 urine Cx had same result, very similar sensitivities) -Continue Ertapenem, 1000 mg, IV, daily; ID consulted and recommended course of Ertapenem, patient's symptoms consistent w/ cystitis, completed 6-day course of Ertapenem -Blood culture, no growth after 48 hrs - Noted in d/c orders to F/U w/ PCP AND CENTRAL OFFICE WORKER, after pt mentioned bulging of bladder into vagina for last 2 months, suggestive of cystocele and possible source of recurrent UTIs In-hospital fall CT-Head --> no acute abnormalities Hip/Pelvis XRay --> no acute fractures noted PT Re-eval noted decline in functional status since [facility] evaluation [facility] and recommend short-term rehab for discharge COVID positive -Cough and runny nose -CXR: no acute findings -No hypoxia, no steroids or remdesivir needed presently; O2 sats have been > 90 -Supportive managements for now, isolation, oxygen if needed Metabolic encephalopathy (visual hallucinations) - Pt had similar event in the past with UTI; no hallucinatory events since admission - likely due to infection/dehydration, treatment as above - Pt w/ waxing and waning mental status, increased delirium during hospital stay - Awaiting insurance decision regarding placement at [facility] Paroxysmal atrial fibrillation -On Eliquis 2.5 mg BID Continue Amiodarone, Metoprol Calf pain/DVT prophylaxis - pt currently on Eliquis, 2.5 mg, BID - COVID+ infxn possible incr DVT risk - b/l Doppler US neg for presence of blood clots CKD-stage 3 - Cr 0.97, baseline less than 1.15 - Cr lvls in hospital (0.9 - 1.11) -Avoid nephrotoxic agents Depression/Anxiety Continue home medications HTN Continue home medications GERD Continue home medications Code: Full code DVT prophylaxis: Eliquis 2.5 mg BID Diet: heart healthy Dispo: Med/telemetry Admission and Anticipated Discharge Date Admission Date: March 01, 2023 Supervising Physician Co-Signing Physician Notes Attending attestation Pt seen and examined in concert with Dr. Mcguire. In agreement with the documented findings as noted in the resident documentation with any exceptions or additions as noted here. maybe a little urinary burning but hard to guage. otherwise no acute complaints. Vitals noted, in general she is awake, but confused. Does not ap pear to be in any distress. HEENT normocephalic atraumatic mucous membranes moist. Breathing unlabored no accessory muscle use good effort. Skin shows no rashes no pallor or icterus. Neuro without focal deficits. mild lower abdominal/suprapubic tenderness UTI with metabolic encephalopathy - ID consult - completed course with ertapenem - follow, reculture given persistent WBC elevation, but inflammatory markers not really in bacterial range. COVID - mild symptoms without hypoxia. Monitor with supportive care. Delirium/metabolic encephalopathy ongoing, patient does not appear to be safe to be home at this point, anticipate need for SNF at her current state. insurance peer to peer doc noted they wouldn't approve rehab but would approve SNF otherwise as above Prabhu Staton is a 82 y/o female with PMH of HTN, Diastolic disfunction, LVH, GERD, depression, lumbar spinal stenosis, paroxysmal atrial fibrillation, CKD-stage 3, anemia, osteoporosis, rheumatoid arthritis and vitamin D deficiency, presenting to ED due to dysuria and visual hallucinations. Patient had a urine culture positive for klebsiella ESBL from 01/27. She was treated with amoxicillin 2 weeks ago. Patient endorsed (and caregiver corroborated) visual hallucinations last night, including animals and people, but none since admission; no more dysuria nor suprapubic pressure when voiding since admission. Pt tested positive for COVID in the ER. Pt feels like runny nose, congestion has improved. She still denies any fevers, shortness of breath, chest pain, palpitations, abdominal pain, was AAO x 1 this morning, seems to be increasingly disoriented. Patient herself noted that she is feeling disoriented and is showing mildly increased dysarthria during her stay. Patient again feels weak today, is using bedside commode, experiencing muscle pain/aches, somewhat increased frailty since admission. Review of Systems Review of Systems: as per HPI Constitutional: + body aches and + weakness; no fever an d no chills Respiratory: + cough (productive cough) and + chest c ongestion; no dyspnea and no hemoptysis Cardiovascular: no chest pain, no palpitations and no lightheadedness Gastrointestinal: no abdominal pain, no nausea, no vomiting and no constipation Genitourinary: + urinary frequency (baseline high freq due to Lasix); no dysuria (has not noticed since admission) Musculoskeletal: + back pain (baseline back pain) and + m yalgia (calf tenderness) Neurologic: no tingling and no numbness Physical Exam Constitutional: WD/WN, vitals as above Respiratory: normal respiratory effort, lungs clear to auscultation Cardiovascular: RRR, no murmur, no edema Gastrointestinal (Abdomen): Inspection/Auscultation: abdomen normal to inspection and normal bowel sounds Percussion/Palpation: + abdomen tender (mild suprapubic tenderness) Psychiatric: Orientation: alert and oriented to person; + not oriented to place, + not oriented to time and + uncooperative Affect: + anxious affect Results & Data Results & Data Vital Signs (Past 12 Hours) Vital Signs Temp Pulse Resp BP Pulse Ox O2 Del Method 03/09/23 07:30 36.7 C 88 14 131/74 95 Room Air Resident Activity Tracking Resident Involvement: Resident Care Provided Care Provided: Adult Hospital Medicine
--- NOTE | 2023-03-09 18:30 | Billing Data ---
Date of Service March 09, 2023 Coding Level of Care Code 20887 SUB INP/OBS CARE
[2023-03-09] MEDS: FAMOTIDINE 40 MG TABLET PO SCH (20:34)
[2023-03-09] MEDS: rOPINIRole HCL 0.25 MG TABLET PO SCH (20:35)
[2023-03-09 23:36] LABS: Appearance Urine Cloudy (Clear); Bacteria Urine Automated Negative (Negative); Blood Urine Negative (Negative); Color Urine Dark Yellow; Epithelial Cell Urine Auto 0-5 /lpf (0-5); Glucose Urine UA Negative (Negative); Ketones Urine 2+ (Negative); Leukocyte Esterase Urine Trace (Negative); Nitrite Urine Negative (Negative); Protein Urine Trace (Negative); RBC Urine Automated 0-4 /hpf (0-4); Urobilinogen Urine Negative (Negative); pH Urine 5.5 (4.5-7.5)
[2023-03-09 23:54] LABS: Bilirubin Urine 2+ (Negative)
[2023-03-10] MEDS: ACETAMINOPHEN 500 MG TAB PO SCH ×4 (01:47→20:30)
[2023-03-10 08:36] LABS: Basophils # (auto) 0.06 K/uL (0.00-0.20); Basophils % (auto) 0.4 %; Eosinophils # (auto) 0.04 K/uL (0.00-0.50); Eosinophils % (auto) 0.3 %; Hematocrit (blood only) 36.7 % (37.0-47.0); Hemoglobin 12.1 g/dl (12.0-16.0); Immature Granulocytes % (auto) 0.7 %; Lymphocytes # (auto) 1.24 K/uL (1.20-3.40); Lymphocytes % (auto) 8.6 %; Mean Corpuscular Hemoglobin 31.8 pg (25.0-34.0); Mean Corpuscular Volume 96.6 fL (80.0-100.0); Mean Platelet Volume 9.5 fL (9.4-12.4); Monocytes # (auto) 1.11 K/uL (0.11-0.59); Monocytes % (auto) 7.7 %; Neutrophils # (auto) 11.89 K/uL (1.40-6.50); Neutrophils % (auto) 82.3 %; Platelet Count 264 K/uL (130-400); RDW Coefficient of Variation 13.2 % (11.5-14.5); RDW Standard Deviation 46.9 fL (36.4-46.3); White Blood Count 14.44 K/ul (4.8-10.8)
[2023-03-10] MEDS: AMIODARONE 200 MG TAB PO SCH (08:40)
[2023-03-10] MEDS: DICLOFENAC SOD 1% GEL 100 GM TUBE EXT SCH (08:40)
[2023-03-10] MEDS: CEROVITE ADV FORMULA TAB PO SCH ×2 (08:40→20:31)
[2023-03-10] MEDS: DULoxetine HCL 60 MG CAP PO SCH (08:40)
[2023-03-10] MEDS: APIXABAN 2.5 MG TAB PO SCH ×2 (08:40→20:30)
[2023-03-10] MEDS: MAGNESIUM OXIDE 400 MG TAB PO SCH ×2 (08:40→20:30)
[2023-03-10] MEDS: FERROUS SULFATE 325 MG TAB PO SCH (08:40)
[2023-03-10] MEDS: DULoxetine HCL 30 MG CAP PO SCH (08:40)
[2023-03-10] MEDS: PRAVASTATIN SOD 40 MG TAB PO SCH (08:41)
[2023-03-10] MEDS: METOPROLOL SUCC 25MG EXT REL TAB PO SCH (08:41)
[2023-03-10] MEDS: METOCLOPRAMIDE HCL 5 MG TABLET PO SCH ×4 (08:41→20:30)
[2023-03-10] MEDS: PANTOprazole 40 MG TAB PO SCH (08:41)
--- NOTE | 2023-03-10 08:47 | Hospitalist Progress Note ---
Date of Service March 10, 2023 Assessment & Plan (1) Complicated urinary tract infection: (2) Infection due to ESBL-producing Klebsiella pneumoniae: (3) COVID-19 virus infection: (4) Hallucination, visual: (5) Restless leg: (6) Rheumatoid arthritis: (7) PAF (paroxysmal atrial fibrillation): (8) Hypertension: (9) Hypercholesterolemia: (10) GERD without esophagitis: (11) Disc degeneration, lumbar: (12) Chronic kidney disease, stage III (moderate): (13) Anxiety: (14) Depression: Plan Assessment & Plan (1) Complicated urinary tract infection: (2) Infection due to ESBL-producing Klebsiella pneumoniae: (3) COVID-19 virus infection: (4) Hallucination, visual: (5) Restless leg: (6) Rheumatoid arthritis: (7) PAF (paroxysmal atrial fibrillation): (8) Hypertension: (9) Hypercholesterolemia: (10) GERD without esophagitis: (11) Disc degeneration, lumbar: (12) Chronic kidney disease, stage III (moderate): (13) Anxiety: (14) Depression: Plan UTI -Admitted to med/telemetry -No leukocytosis, lactate negative -Dysuria and pressure when urinating upon admission, has since resolved -Treated with Augmentin for previous UTI (02/09/23) -Urine Cx (03/01/23): Klebsiella pneumoniae-ESBL (02/09/23 urine Cx had same result, very similar sensitivities) -Continue Ertapenem, 1000 mg, IV, daily; ID consulted and recommended course of Ertapenem, patient's symptoms consistent w/ cystitis, completed 6-day course of Ertapenem -Blood culture, no growth after 48 hrs - Noted in d/c orders to F/U w/ PCP AND AUTOMOTIVE MACHINIST, after pt mentioned bulging of bladder into vagina for last 2 months, suggestive of cystocele and possible source of recurrent UTIs - while waiting for placement at rehab or SNF, patient's WBC increased 8.5 --> 15.4 --> 16.3 --> 14.4 - repeat UA: cloudy; urine bilirubin, 2+; LE, trace - increased AG, 15 - CRP: 6.02 --> 16.7 - Restarted ertapenem, may re-consult ID In-hospital fall CT-Head --> no acute abnormalities Hip/Pelvis XRay --> no acute fractures noted PT Re-eval noted decline in functional status since initial evaluation at admission and recommend short-term rehab for discharge COVID positive -Cough and runny nose -CXR: no acute findings -No hypoxia, no steroids or remdesivir needed presently; O2 sats have been > 90 -Supportive managements for now, isolation, oxygen if needed Metabolic encephalopathy (visual hallucinations) - Pt had similar event in the past with UTI; no hallucinatory events since admission - likely due to infection/dehydration, treatment as above - Pt w/ waxing and waning mental status, increased delirium during hospital stay, demonstrated psychotic delirium 03/10/23 Paroxysmal atrial fibrillation -On Eliquis 2.5 mg BID Continue Amiodarone, Metoprol Calf pain/DVT prophylaxis - pt currently on Eliquis, 2.5 mg, BID - COVID+ infxn possible incr DVT risk - b/l Doppler US neg for presence of blood clots CKD-stage 3 - Cr 0.97, baseline less than 1.15 - Cr lvls in hospital (0.9 - 1.11) -Avoid nephrotoxic agents Depression/Anxiety Continue home medications HTN Continue home medications GERD Continue home medications Code: Full code DVT prophylaxis: Eliquis 2.5 mg BID Diet: heart healthy Dispo: Med/telemetry Admission and Anticipated Discharge Date Admission Date: March 01, 2023 Supervising Physician Co-Signing Physician Notes Attending attestation Pt seen and examined in concert with Dr. Mcguire. In agreement with the documented findings as noted in the resident documentation with any exceptions or additions as noted here. makes eye contact and vaguely nods but not really able to glean any meaningful HPI or ROS. Vitals noted, in general she is awake, but confused. Does not appear to be in any distress. HEENT normocephalic atraumatic mucous membranes moist. Breathing unlabored no accessory muscle use good effort. Skin shows no rashes no pallor or icterus. Neuro without focal deficits. no abdominal tenderness. UTI with metabolic encephalopathy - ID consult - completed proscribed course with ertapenem - but with worsening delirium -> following inflammatory markers - > rising - no other clear culprit - will resume ertapenem while also following serial exams/labs/etc to ensure no other overt areas of infection. Delirium/metabolic encephalopathy ongoing, patient does not appear to be safe to be home at this point, anticipate need for SNF at her current state. insurance peer to peer doc noted they wouldn't approve rehab but would approve SNF; family will assess if they can take care of her at home. otherwise as above Prabhu Staton is a 82 y/o female with PMH of HTN, Diastolic disfunction, LVH, GERD, depression, lumbar spinal stenosis, paroxysmal atrial fibrillation, CKD-stage 3, anemia, osteoporosis, rheumatoid arthritis and vitamin D deficiency, presenting to ED due to dysuria and visual hallucinations. Patient had a urine culture positive for klebsiella ESBL from 01/27. She was treated with amoxicillin 2 weeks ago. Patient endorsed (and caregiver corroborated) visual hallucinations last night, including animals and people, but none since admission; no more dysuria nor suprapubic pressure when voiding since admission. Pt tested positive for COVID in the ER. Pt feels like runny nose, congestion has improved. She still denies any fevers, shortness of breath, chest pain, palpitat ions, abdominal pain, was AAO x 1 this morning, seems to be increasingly disoriented. Patient herself noted that she is feeling disoriented and is showing mildly increased dysarthria during her stay. Patient again feels weak today, is using bedside commode, experiencing muscle pain/aches, somewhat increased frailty since admission. Review of Systems Review of Systems: as per HPI Constitutional: + body aches and + weakness; no fever an d no chills Respiratory: + cough (productive cough) and + chest c ongestion; no dyspnea and no hemoptysis Cardiovascular: no chest pain, no palpitations and no lightheadedness Gastrointestinal: no abdominal pain, no nausea, no vomiting and no constipation Genitourinary: + urinary frequency (baseline high freq due to Lasix); no dysuria (has not noticed since admission) Musculoskeletal: + back pain (baseline back pain) and + m yalgia (calf tenderness) Neurologic: no tingling and no numbness Physical Exam Constitutional: WD/WN, vitals as above Respiratory: normal respiratory effort, lungs clear to auscultation Cardiovascular: RRR, no murmur, no edema Gastrointestinal (Abdomen): Inspection/Auscultation: abdomen normal to inspection and normal bowel sounds Percussion/Palpation: + abdomen tender (mild suprapubic tenderness) Psychiatric: Orientation: alert, oriented x 3 and oriented to person; + not oriented to place, + not oriented to time and + uncooperative Affect: + anxious affect and + angry affect (patient is intermittently resistant to care) Results & Data Results & Data Vital Signs (Past 12 Hours) Vital Signs Temp Pulse Resp BP Pulse Ox O2 Del Method 03/09/23 20:45 36.9 C 76 16 133/79 96 Room Air Resident Activity Tracking Resident Involvement: Resident Care Provided Care Provided: Adult Hospital Medicine
[2023-03-10 08:59] LABS: BUN Creatinine Ratio 22.6 (10-20); C Reactive Protein 16.7 mg/dl (0-0.5); Calcium 9.3 mg/dl (8.6-10.3); Est GFR (African American) 56.2 ml/min; Est GFR (Non-African American) 48.5 ml/min; Potassium 4.4 mmol/L (3.5-5.1)
[2023-03-10] MEDS: ERTAPENEM SODIUM 1,000 MG in SYRINGE 0 ML IV SCH (15:58)
--- NOTE | 2023-03-10 17:37 | Billing Data ---
Date of Service March 10, 2023 Coding Level of Care Code 56834 SUB INP/OBS CARE
[2023-03-10] MEDS: FAMOTIDINE 40 MG TABLET PO SCH (20:30)
[2023-03-10] MEDS: rOPINIRole HCL 0.25 MG TABLET PO SCH (20:31)
[2023-03-11] MEDS ORDERED: MELATONIN 3 MG TAB PO ONE (00:59)
[2023-03-11] MEDS: ACETAMINOPHEN 500 MG TAB PO SCH ×4 (01:30→22:30)
[2023-03-11 07:27] LABS: Basophils # (auto) 0.07 K/uL (0.00-0.20); Basophils % (auto) 0.5 %; Eosinophils # (auto) 0.08 K/uL (0.00-0.50); Eosinophils % (auto) 0.6 %; Hematocrit (blood only) 33.2 % (37.0-47.0); Hemoglobin 11.1 g/dl (12.0-16.0); Immature Granulocytes # (auto) 0.07 K/uL (0.01-0.20); Immature Granulocytes % (auto) 0.5 %; Lymphocytes # (auto) 1.62 K/uL (1.20-3.40); Lymphocytes % (auto) 11.7 %; Mean Corpuscular Hemoglobin 32.2 pg (25.0-34.0); Mean Corpuscular Hgb Conc 33.4 g/dL (32.0-36.0); Mean Corpuscular Volume 96.2 fL (80.0-100.0); Mean Platelet Volume 9.8 fL (9.4-12.4); Monocytes # (auto) 1.14 K/uL (0.11-0.59); Monocytes % (auto) 8.2 %; Neutrophils # (auto) 10.84 K/uL (1.40-6.50); Neutrophils % (auto) 78.5 %; Platelet Count 273 K/uL (130-400); RDW Coefficient of Variation 13.2 % (11.5-14.5); RDW Standard Deviation 46.8 fL (36.4-46.3); Red Blood Count 3.45 M/uL (4.20-5.40); White Blood Count 13.82 K/ul (4.8-10.8)
[2023-03-11 07:31] LABS: Albumin Globulin Ratio 1.3 (0.9-2); Albumin Level 3.7 gm/dl (3.4-5.0); BUN Creatinine Ratio 24.3 (10-20); Bilirubin,Total 1.1 mg/dl (0.2-1.0); C Reactive Protein 18.89 mg/dl (0-0.5); Creatinine Clr Calc Pharmacy 33.5 ml/min; Est GFR (African American) 53.2 ml/min; Est GFR (Non-African American) 45.9 ml/min; Globulin 2.9 gm/dl (2.5-4.0); Potassium 3.9 mmol/L (3.5-5.1); Total Protein 6.6 gm/dl (6.0-8.3)
--- NOTE | 2023-03-11 10:02 | XRay Report ---
XR chest 2V PA/lateral CLINICAL HISTORY: Hypoxia. Leukocytosis. COMPARISON STUDY: Chest CT September 22, 2021. Chest radiograph March 01, 2023. FINDINGS: Old bilateral rib fractures are incidentally noted. Cardiomegaly is unchanged. There is no evidence for pulmonary edema. Bibasilar densities are present. There is no definite consolidation to suggest pneumonia. There is no pneumothorax. There are trace bilateral pleural effusions. IMPRESSION: 1. Bibasilar densities. Atelectasis is favored. Although less likely, an infectious process could josh ear similar. 2. Cardiomegaly without evidence for pulmonary edema. 3. Trace bilateral pleural effusions. ACT 112: Negative or not required by law. Electronically signed by: Osmel Srivastava M.D. 03/11/2023 10:01 AM
[2023-03-11] MEDS: DULoxetine HCL 60 MG CAP PO SCH (10:43)
[2023-03-11] MEDS: MAGNESIUM OXIDE 400 MG TAB PO SCH ×2 (10:43→20:11)
[2023-03-11] MEDS: DULoxetine HCL 30 MG CAP PO SCH (10:43)
[2023-03-11] MEDS: AMIODARONE 200 MG TAB PO SCH (10:43)
[2023-03-11] MEDS: APIXABAN 2.5 MG TAB PO SCH ×2 (10:43→20:11)
[2023-03-11] MEDS: METOPROLOL SUCC 25MG EXT REL TAB PO SCH (10:43)
[2023-03-11] MEDS: PRAVASTATIN SOD 40 MG TAB PO SCH (10:43)
[2023-03-11] MEDS: PANTOprazole 40 MG TAB PO SCH (10:43)
[2023-03-11] MEDS: CEROVITE ADV FORMULA TAB PO SCH ×2 (10:44→20:12)
[2023-03-11] MEDS: METOCLOPRAMIDE HCL 5 MG TABLET PO SCH ×4 (10:44→23:55)
[2023-03-11] MEDS: DICLOFENAC SOD 1% GEL 100 GM TUBE EXT SCH (10:44)
[2023-03-11] MEDS: FERROUS SULFATE 325 MG TAB PO SCH (10:44)
--- NOTE | 2023-03-11 10:46 | Hospitalist Progress Note ---
Date of Service March 11, 2023 Assessment & Plan (1) Complicated urinary tract infection: (2) Infection due to ESBL-producing Klebsiella pneumoniae: (3) COVID-19 virus infection: (4) Hallucination, visual: (5) Restless leg: (6) Rheumatoid arthritis: (7) PAF (paroxysmal atrial fibrillation): (8) Hypertension: (9) Hypercholesterolemia: (10) GERD without esophagitis: (11) Disc degeneration, lumbar: (12) Chronic kidney disease, stage III (moderate): (13) Anxiety: (14) Depression: (15) Leukocytosis: Plan Assessment & Plan (1) Complicated urinary tract infection: (2) Infection due to ESBL-producing Klebsiella pneumoniae: (2b) Leukocytosis (3) COVID-19 virus infection: (4) Hallucination, visual: (5) Restless leg: (6) Rheumatoid arthritis: (7) PAF (paroxysmal atrial fibrillation): (8) Hypertension: (9) Hypercholesterolemia: (10) GERD without esophagitis: (11) Disc degeneration, lumbar: (12) Chronic kidney disease, stage III (moderate): (13) Anxiety: (14) Depression: Plan UTI -Admitted to med/telemetry -No leukocytosis, lactate negative -Dysuria and pressure when urinating upon admission, has since resolved -Treated with Augmentin for previous UTI (02/09/23) -Urine Cx (03/01/23): Klebsiella pneumoniae-ESBL (02/09/23 urine Cx had same result, very similar sensitivities) -Continue Ertapenem, 1000 mg, IV, daily; ID consulted and recommended course of Ertapenem, patient's symptoms consistent w/ cystitis, completed 6-day course of Ertapenem -Blood culture, no growth after 48 hrs - Noted in d/c orders to F/U w/ PCP AND CULINARY ARTS TEACHER, after pt mentioned bulging of bladder into vagina for last 2 months, suggestive of cystocele and possible source of recurrent UTIs - while waiting for placement at rehab or SNF, patient's WBC increased 8.5 --> 15.4 --> 16.3 --> 14.4 --> 13.8 - repeat UA: cloudy; urine bilirubin, 2+; LE, trace - increased AG, 15 - TBili, 1.1 (day after urine bili, +2) Leukocytosis - patient's WBC increased 8.5 --> 15.4 --> 16.3 --> 14.4 --> 13.8 - CRP: 6.02 --> 16.7 - Restarted ertapenem, may re-consult ID - Chest XRay: No evidence of pulmonary edema; trace bilateral pleural effusions; bibasilar densities, possible atelectasis - Blood Cxs pending (03/11/23) - Urine Cx ordered, still uncollected (03/11/23) In-hospital fall CT-Head --> no acute abnormalities Hip/Pelvis XRay --> no acute fractures noted PT Re-eval noted decline in functional status since initial evaluation at admission and recommend short-term rehab for discharge COVID positive -Cough and runny nose -CXR: no acute findings -No hypoxia, no steroids or remdesivir needed presently; O2 sats have been > 90 -Supportive managements for now, isolation, oxygen if needed Metabolic encephalopathy (visual hallucinations) - Pt had similar event in the past with UTI; hallucinatory events upon admission, seemed to resolve but have recurred recently (03/11 for sure, possibly on 03/10) - likely due to infection/dehydration, treatment as above - Pt w/ waxing and waning mental status, increased delirium during hospital stay, demonstrated psychotic delirium 03/10/23 Paroxysmal atrial fibrillation -On Eliquis 2.5 mg BID Continue Amiodarone, Metoprol Calf pain/DVT prophylaxis - pt currently on Eliquis, 2.5 mg, BID - COVID+ infxn possible incr DVT risk - b/l Doppler US neg for presence of blood clots CKD-stage 3 - Cr 0.97, baseline less than 1.15 - Cr lvls in hospital (0.9 - 1.16) -Avoid nephrotoxic agents Depression/Anxiety Continue home medications HTN Continue home medications GERD Continue home medications Code: Full code DVT prophylaxis: Eliquis 2.5 mg BID Diet: heart healthy Dispo: Med/telemetry Admission and Anticipated Discharge Date Admission Date: March 01, 2023 Supervising Physician Co-Signing Physician Notes Attending attestation Pt seen and examined in concert with Dr. Mcguire. In agreement with the documented findings as noted in the resident documentation with any exceptions or additions as noted here. no significant HPI / ROS. Vitals noted, Resting comfortably appears to be in no distress. Breathing unlabored. Skin without pallor. UTI with metabolic encephalopathy - ID consult - completed proscribed course with ertapenem - but with worsening delirium -> following inflammatory markers - > rising - no other clear culprit - Continue back on ertapenem while also following serial exams/labs/etc to ensure no other overt areas of infection. blood cultures and repeat urine culture sent today, chest x-ray without pneumonia, I suspect her transient hypoxia was probably due to atelectasis, which was likely remedied by deep breaths for chest x-ray. Delirium/metabolic encephalopathy ongoing, patient does not appear to be safe to be home at this point, anticipate need for SNF at her current state. insurance peer to peer doc noted they wouldn't approve rehab but would approve SNF; family will assess if they can take care of her at home. otherwise as above Prabhu Staton is a 82 y/o female with PMH of HTN, Diastolic disfunction, LVH, GERD, depression, lumbar spinal stenosis, paroxysmal atrial fibrillation, CKD-stage 3, anemia, osteoporosis, rheumatoid arthritis and vitamin D deficiency, presenting to ED due to dysuria and visual hallucinations. Patient had a urine culture positive for klebsiella ESBL from 01/27. She was treated with amoxicillin 2 weeks ago. Patient endorsed (and caregiver corroborated) visual hallucinations last night, including animals and people, but none since admission; no more dysuria nor suprapubic pressure when voiding since admission. Pt tested positive for COVID in the ER. Pt feels like runny nose, congestion has improved. She still denies any fevers, shortness of breath, chest pain, palpitations, abdominal pain, was AAO x 1 this morning, seems to be increasingly disoriented. Patient has herself noted feeling disoriented recently and is showing mildly increased dysarthria/dysphagia during stay. Patient again feels weak today, experiencing muscle pain/aches, once again with hallucinations, increased frailty since admission. Review of Systems Review of Systems: as per HPI Constitutional: + body aches and + weakness; no fever an d no chills Respiratory: + cough (productive cough), + chest yury estion and + dyspnea; no hemoptysis Cardiovascular: no chest pain, no palpitations and no lightheadedness Gastrointestinal: no abdominal pain, no nausea, no vomiting and no constipation Genitourinary: + urinary frequency (baseline high freq due to Lasix); no dysuria (has not noticed since admission) Musculoskeletal: + back pain (baseline back pain) and + m yalgia (calf t enderness) Neurologic: no tingling and no numbness Physical Exam Constitutional: WD/WN, vitals as above Respiratory: normal respiratory effort, lungs clear to auscultation Cardiovascular: RRR, no murmur, no edema Gastrointestinal (Abdomen): Inspection/Auscultation: abdomen normal to inspection and normal bowel sounds Percussion/Palpation: + abdomen tender (mild suprapubic tenderness) Psychiatric: Orientation: alert, oriented x 3 and oriented to person; + not oriented to place, + not oriented to time and + uncooperative Affect: + anxious affect Genitourinary: + bladder abnormality (bladder/suprapubi c pain) Results & Data Results & Data Vital Signs (Past 12 Hours) Vital Signs Temp Pulse Resp BP Pulse Ox O2 Del Method 03/11/23 08:30 36.7 C 83 16 128/67 85 L Room Air
[2023-03-11] MEDS: ERTAPENEM SODIUM 1,000 MG in SYRINGE 0 ML IV SCH (16:01)
--- NOTE | 2023-03-11 19:28 | Billing Data ---
Date of Service March 11, 2023 Coding Level of Care Code 22688 SUB INP/OBS CARE MIN
[2023-03-11] MEDS: FAMOTIDINE 40 MG TABLET PO SCH (20:11)
[2023-03-11] MEDS: rOPINIRole HCL 0.25 MG TABLET PO SCH (20:12)
[2023-03-12] MEDS: ACETAMINOPHEN 500 MG TAB PO SCH ×4 (04:16→21:43)
--- NOTE | 2023-03-12 08:55 | Hospitalist Progress Note ---
Date of Service March 12, 2023 Assessment & Plan (1) Complicated urinary tract infection: (2) Infection due to ESBL-producing Klebsiella pneumoniae: (3) COVID-19 virus infection: (4) Hallucination, visual: (5) Restless leg: (6) Rheumatoid arthritis: (7) PAF (paroxysmal atrial fibrillation): (8) Hypertension: (9) Hypercholesterolemia: (10) GERD without esophagitis: (11) Disc degeneration, lumbar: (12) Chronic kidney disease, stage III (moderate): (13) Anxiety: (14) Depression: (15) Leukocytosis: Plan Assessment & Plan (1) Complicated urinary tract infection: (2) Infection due to ESBL-producing Klebsiella pneumoniae: (2b) Leukocytosis (3) COVID-19 virus infection: (4) Hallucination, visual: (5) Restless leg: (6) Rheumatoid arthritis: (7) PAF (paroxysmal atrial fibrillation): (8) Hypertension: (9) Hypercholesterolemia: (10) GERD without esophagitis: (11) Disc degeneration, lumbar: (12) Chronic kidney disease, stage III (moderate): (13) Anxiety: (14) Depression: Plan UTI -Admitted to med/telemetry -No leukocytosis, lactate negative -Dysuria and pressure when urinating upon admission, has since resolved -Treated with Augmentin for previous UTI (02/09/23) -Urine Cx (03/01/23): Klebsiella pneumoniae-ESBL (02/09/23 urine Cx had same result, very similar sensitivities) -Continue Ertapenem, 1000 mg, IV, daily; ID consulted and recommended course of Ertapenem, patient's symptoms consistent w/ cystitis, completed 6-day course of Ertapenem -Blood culture, no growth after 48 hrs - Noted in d/c orders to F/U w/ PCP AND CANARY BREEDER, after pt mentioned bulging of bladder into vagina for last 2 months, suggestive of cystocele and possible source of recurrent UTIs - while waiting for placement at rehab or SNF, patient's WBC increased 8.5 --> 15.4 - repeat UA: cloudy; urine bilirubin, 2+; LE, trace - increased AG, 15 - TBili, 1.1 (day after urine bili, +2), not suggestive of liver compromise - Restarted ertapenem, may re-consult ID, Pharm Leukocytosis - patient's WBC increased 8.5 --> 15.4 --> 16.3 --> 14.4 --> 13.8 --> 11.8 - CRP: 6.02 --> 16.7 - Restarted ertapenem (03/10/23), may re-consult ID, continue 1000 mg, IV, daily, 24 hr - [facility] Pharm recommends decreasing ertapenem dose to 500 mg, IV, daily, 24 hr if pt's Cr Cl remains < 30 - Chest XRay: No evidence of pulmonary edema; trace bilateral pleural effusions; bibasilar densities, possible atelectasis - Blood Cxs pending (03/11/23), no growth after 24 hrs - Urine Cx ordered, still uncollected (03/11/23), pending In-hospital fall CT-Head --> no acute abnormalities Hip/Pelvis XRay --> no acute fractures noted PT Re-eval noted decline in functional status since initial evaluation at admission and recommend short-term rehab for discharge COVID positive -Cough and runny nose -CXR: no acute findings -No hypoxia, no steroids or remdesivir needed presently; O2 sats have been > 90 -Supportive managements for now, isolation, oxygen if needed -Pt taken off of isolation Metabolic encephalopathy (visual hallucinations) - Pt had similar event in the past with UTI; hallucinatory events upon admission, seemed to resolve but have recurred recently (03/11 for sure, possibly on 03/10) - likely due to infection/dehydration, treatment as above - Pt w/ waxing and waning mental status, increased delirium during hospital stay, demonstrated psychotic delirium 03/10/23 - Patient not demonstrating delirium, 03.12.23, first all week Paroxysmal atrial fibrillation -On Eliquis 2.5 mg BID Continue Amiodarone, Metoprol Calf pain/DVT prophylaxis - pt currently on Eliquis, 2.5 mg, BID - COVID+ infxn possible incr DVT risk - b/l Doppler US neg for presence of blood clots CKD-stage 3 - Cr 0.97, baseline less than 1.15 - Cr lvls in hospital (0.9 - 1.25) -Avoid nephrotoxic agents Depression/Anxiety Continue home medications HTN Continue home medications GERD Continue home medications Code: Full code DVT prophylaxis: Eliquis 2.5 mg BID Diet: heart healthy Dispo: Med/telemetry Admission and Anticipated Discharge Date Admission Date: March 01, 2023 Supervising Physician Co-Signing Physician Notes Attending attestation I personally examined the patient and verified all clemente points of history and exam, discussed case, and agree with decision making with Dr Mcguire. no significant HPI / ROS. Vitals noted,resting comfortably appears to be in no distress. Breathing unlabored. Skin without pallor. UTI with metabolic encephalopathy - ID consult - completed proscribed course with ertapenem - but with worsening delirium -> following inflammatory markers - > rising - no other clear culprit - Continue back on ertapenem while also following serial exams/labs/etc to ensure no other overt areas of infection. s eems to be ipmroving again. Delirium/metabolic encephalopathy ongoing, family planning on home. otherwise as above Prabhu Staton is a 82 y/o female with PMH of HTN, Diastolic disfunction, LVH, GERD, depression, lumbar spinal stenosis, paroxysmal atrial fibrillation, CKD-stage 3, anemia, osteoporosis, rheumatoid arthritis and vitamin D deficiency, presenting to ED due to dysuria and visual hallucinations. Patient had a urine culture positive for klebsiella ESBL from 01/27. She was treated with amoxicillin 2 weeks ago. Patient endorsed (and caregiver corroborated) visual hallucinations last night, including animals and people, but none since admission; no more dysuria nor suprapubic pressure when voiding since admission. Pt tested positive for COVID in the ER. Pt feels like runny nose, congestion has improved. She still denies any fevers, shortness of breath, chest pain, palpitations, abdominal pain, was AAO x 1 this morning, seems to be increasingly disoriented. Patient has herself noted feeling disoriented recently and is showing mildly increased dysarthria/dysphagia during stay. Patient again feels weak today, experiencing muscle pain/aches, once again with hallucinations, increased frailty since admission. Patient AAO x 4 this morning, not experiencing hallucinations, spontaneously initiated appropriate conversation. Patient a lot less delirious this morning; she attributes it to better sleep. Review of Systems Review of Systems: as per HPI Constitutional: + body aches and + weakness; no fever an d no chills Respiratory: + cough (productive cough), + chest yury estion and + dyspnea; no hemoptysis Cardiovascular: no chest pain, no palpitations and no lightheadedness Gastrointestinal: no abdominal pain, no nausea, no vomiting and no constipation Genitourinary: + urinary frequency (baseline high freq due to Lasix); no dysuria (has not noticed since admission) Musculoskeletal: + back pain (baseline back pain) and + m yalgia (calf tenderness) Neurologic: no tingling and no numbness Physical Exam Constitutional: WD/WN, vitals as above Respiratory: normal respiratory effort, lungs clear to auscultation Cardiovascular: RRR, no murmur, no edema Gastrointestinal (Abdomen): Inspection/Auscultation: abdomen normal to inspection and normal bowel sounds Psychiatric: Orientation: alert, oriented x 3 and cooperative Affect: mood congruent with affect Results & Data Results & Data Vital Signs (Past 12 Hours) Vital Signs Temp Pulse Resp BP Pulse Ox O2 Del Method 03/12/23 08:29 37.0 C 73 17 114/63 94 Room Air
[2023-03-12] MEDS: AMIODARONE 200 MG TAB PO SCH (09:24)
[2023-03-12] MEDS: APIXABAN 2.5 MG TAB PO SCH ×2 (09:24→21:44)
[2023-03-12] MEDS: DICLOFENAC SOD 1% GEL 100 GM TUBE EXT SCH (09:25)
[2023-03-12] MEDS: METOCLOPRAMIDE HCL 5 MG TABLET PO SCH ×4 (09:25→21:43)
[2023-03-12] MEDS: CEROVITE ADV FORMULA TAB PO SCH ×2 (09:26→21:43)
[2023-03-12] MEDS: DULoxetine HCL 60 MG CAP PO SCH (09:26)
[2023-03-12] MEDS: MAGNESIUM OXIDE 400 MG TAB PO SCH ×2 (09:26→21:44)
[2023-03-12] MEDS: FERROUS SULFATE 325 MG TAB PO SCH (09:27)
[2023-03-12] MEDS: METOPROLOL SUCC 25MG EXT REL TAB PO SCH (09:27)
[2023-03-12] MEDS: DULoxetine HCL 30 MG CAP PO SCH (09:27)
[2023-03-12] MEDS: PRAVASTATIN SOD 40 MG TAB PO SCH (09:28)
[2023-03-12] MEDS: PANTOprazole 40 MG TAB PO SCH (09:28)
[2023-03-12 09:33] LABS: Basophils # (auto) 0.07 K/uL (0.00-0.20); Basophils % (auto) 0.6 %; Eosinophils # (auto) 0.09 K/uL (0.00-0.50); Eosinophils % (auto) 0.8 %; Hematocrit (blood only) 32.2 % (37.0-47.0); Hemoglobin 10.6 g/dl (12.0-16.0); Immature Granulocytes # (auto) 0.06 K/uL (0.01-0.20); Immature Granulocytes % (auto) 0.5 %; Lymphocytes # (auto) 1.44 K/uL (1.20-3.40); Lymphocytes % (auto) 12.2 %; Mean Corpuscular Hemoglobin 31.8 pg (25.0-34.0); Mean Corpuscular Hgb Conc 32.9 g/dL (32.0-36.0); Mean Corpuscular Volume 96.7 fL (80.0-100.0); Mean Platelet Volume 9.7 fL (9.4-12.4); Monocytes # (auto) 0.92 K/uL (0.11-0.59); Monocytes % (auto) 7.8 %; Neutrophils # (auto) 9.19 K/uL (1.40-6.50); Neutrophils % (auto) 78.1 %; Platelet Count 293 K/uL (130-400); RDW Coefficient of Variation 13.4 % (11.5-14.5); Red Blood Count 3.33 M/uL (4.20-5.40); White Blood Count 11.77 K/ul (4.8-10.8)
[2023-03-12 09:48] LABS: BUN Creatinine Ratio 25.6 (10-20); Creatinine Clr Calc Pharmacy 29.7 ml/min; Est GFR (African American) 46.1 ml/min; Est GFR (Non-African American) 39.7 ml/min; Potassium 4.5 mmol/L (3.5-5.1)
[2023-03-12] MEDS: ERTAPENEM SODIUM 1,000 MG in SYRINGE 0 ML IV SCH (15:30)
--- NOTE | 2023-03-12 19:16 | Billing Data ---
Date of Service March 12, 2023 Coding Level of Care Code 22214 SUB INP/OBS CARE
[2023-03-12] MEDS: FAMOTIDINE 40 MG TABLET PO SCH (21:43)
[2023-03-12] MEDS: rOPINIRole HCL 0.25 MG TABLET PO SCH (21:44)
[2023-03-13] MEDS: ACETAMINOPHEN 500 MG TAB PO SCH ×4 (04:39→22:17)
[2023-03-13 07:04] LABS: Basophils # (auto) 0.03 K/uL (0.00-0.20); Basophils % (auto) 0.3 %; Eosinophils # (auto) 0.14 K/uL (0.00-0.50); Eosinophils % (auto) 1.6 %; Hematocrit (blood only) 31.4 % (37.0-47.0); Immature Granulocytes # (auto) 0.05 K/uL (0.01-0.20); Immature Granulocytes % (auto) 0.6 %; Lymphocytes # (auto) 1.44 K/uL (1.20-3.40); Lymphocytes % (auto) 16.4 %; Mean Corpuscular Hemoglobin 31.6 pg (25.0-34.0); Mean Corpuscular Hgb Conc 31.8 g/dL (32.0-36.0); Mean Corpuscular Volume 99.4 fL (80.0-100.0); Mean Platelet Volume 9.6 fL (9.4-12.4); Monocytes % (auto) 10.3 %; Neutrophils # (auto) 6.21 K/uL (1.40-6.50); Neutrophils % (auto) 70.8 %; Platelet Count 254 K/uL (130-400); RDW Coefficient of Variation 13.2 % (11.5-14.5); RDW Standard Deviation 48.3 fL (36.4-46.3); Red Blood Count 3.16 M/uL (4.20-5.40); White Blood Count 8.77 K/ul (4.8-10.8)
[2023-03-13 07:25] LABS: BUN Creatinine Ratio 28.1 (10-20); C Reactive Protein 14.5 mg/dl (0-0.5); Calcium 8.6 mg/dl (8.6-10.3); Creatinine Clr Calc Pharmacy 32.6 ml/min; Est GFR (African American) 51.5 ml/min; Est GFR (Non-African American) 44.4 ml/min; Potassium 4.3 mmol/L (3.5-5.1)
--- NOTE | 2023-03-13 07:47 | Hospitalist Progress Note ---
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 Overall plan is to give IV ertapenem today and tomorrow, and after dose tomorrow she can probably go home if otherwise remains stable. UTI -No leukocytosis, lactate negative on admission, was having dysuria that has since resolved -Treated with Augmentin for recent UTI (02/09/23) with urine cx positive for Klebsiella pneumoniae-ESB -ID consulted and recommended course of Ertapenem - completed course of ertapenem, did okay for a day or two, but then appeared ill again and had increased WBC count so restarted - [facility] recommends decreasing ertapenem dose to 500 mg, IV, daily, 24 hr if pt's Cr Cl remains < 30 - Blood Cxs pending (03/11/23), pending - Urine Cx ordered, still uncollected (03/11/23), pending - will do Ertapenem today and last dose to be tomorrow - Noted in d/c orders to F/U w/ PCP AND 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, after pt mentioned bulging of bladder into vagina for last 2 months, suggestive of cystocele and possible source of recurrent UTIs In-hospital fall CT-Head --> no acute abnormalities Hip/Pelvis XRay --> no acute fractures noted PT Re-eval noted decline in functional status since initial evaluation at admission and recommend short-term rehab for discharge COVID positive -Cough and runny nose -CXR: no acute findings -No hypoxia, no steroids or remdesivir needed presently; O2 sats have been > 90 -Supportive managements for now, isolation, oxygen if needed -Pt taken off of isolation Metabolic encephalopathy (visual hallucinations) - Pt had similar event in the past with UTI; hallucinatory events upon admission, seemed to resolve but have recurred recently (03/11 for sure, possibly on 03/10) - likely due to infection/dehydration, treatment as above - Pt w/ waxing and waning mental status, increased delirium during hospital stay, demonstrated psychotic delirium 03/10/23 - Patient not demonstrating delirium, 03.12.23, first all week Paroxysmal atrial fibrillation -On Eliquis 2.5 mg BID Continue Amiodarone, Metoprol Calf pain/DVT prophylaxis - pt currently on Eliquis, 2.5 mg, BID - COVID+ infxn possible incr DVT risk - b/l Doppler US neg for presence of blood clots CKD-stage 3 - Cr 0.97, baseline less than 1.15 - Cr lvls in hospital (0.9 - 1.25) - Avoid nephrotoxic agents Depression/Anxiety Continue home medications HTN Continue home medications GERD Continue home medications Code: Full code DVT prophylaxis: Eliquis 2.5 mg BID Diet: heart healthy Admission and Anticipated Discharge Date Admission Date: March 01, 2023 Supervising Physician Co-Signing Physician Notes Attending attestation I personally examined the patient and verified all clemente points of history and exam, discussed case, and agree with decision making with Dr Palacio feels overall pretty good just vague diffuse abdominal pain not severe.. Vitals noted, pleasant nad heent nc at mmm abd soft maybe mild distention nontender no guarding no rebound. UTI with metabolic encephalopathy - ID consult - completed proscribed course with ertapenem - but with worsening delirium -> following inflammatory markers - > rising - no other clear culprit - resumed ertapenem with improvement. today's abdominal pain - ?constipation - bowel regimen Delirium/metabolic encephalopathy - seems to be doing better family anticipating bringing her home, likely tomorrow after last ertapenem dose otherwise as above Subjective Pt is a 82 yo female who presents to the hospital on 03/01/23 for UTI, COVID infection, AMS. Today, she states that she is feeling okay. She states that she has been having some abdominal pain that feels more like soreness when she sits up, but has been tolerating meals without any trouble. She states her last bowel movement was 2 days ago and was normal. Otherwise, she states she is feeling well and has no further complaints at this time. Review of Systems Review of Systems: Constitutional: denies fever, chills, Cardio: denies chest pain, Resp: denies shortness of breath, Physical Exam Physical Exam: General:Alert, no acute distress, pleasant Cardio: Regular rate and rhythm, Resp:Lungs clear to auscultation b/l, no wheezes or rhonchi, GI: Soft and nontender, nondistended, bowel sounds active Skin: Warm, pink, dry, Psych: Mood-affect congruence. Results & Data Results & Data Vital Signs (Past 12 Hours) Vital Signs Temp Pulse Resp BP Pulse Ox O2 Del Method 03/13/23 07:26 36.6 C 68 16 105/67 94 Room Air 03/12/23 22:18 134/79 03/12/23 20:55 37.2 C 75 16 98/59 L 91 Room Air 03/12/23 20:00 Room Air Resident Activity Tracking Resident Involvement: Resident Care Provided Care Provided: Adult Hospital Medicine
[2023-03-13] MEDS: DULoxetine HCL 60 MG CAP PO SCH (09:57)
[2023-03-13] MEDS: MAGNESIUM OXIDE 400 MG TAB PO SCH ×2 (09:57→22:16)
[2023-03-13] MEDS: FERROUS SULFATE 325 MG TAB PO SCH (09:57)
[2023-03-13] MEDS: METOPROLOL SUCC 25MG EXT REL TAB PO SCH (09:57)
[2023-03-13] MEDS: METOCLOPRAMIDE HCL 5 MG TABLET PO SCH ×4 (09:57→22:15)
[2023-03-13] MEDS: CEROVITE ADV FORMULA TAB PO SCH ×2 (09:58→22:15)
[2023-03-13] MEDS: PRAVASTATIN SOD 40 MG TAB PO SCH (09:59)
[2023-03-13] MEDS: DULoxetine HCL 30 MG CAP PO SCH (09:59)
[2023-03-13] MEDS: AMIODARONE 200 MG TAB PO SCH (09:59)
[2023-03-13] MEDS: PANTOprazole 40 MG TAB PO SCH (09:59)
[2023-03-13] MEDS: APIXABAN 2.5 MG TAB PO SCH ×2 (10:00→22:14)
[2023-03-13] MEDS: DICLOFENAC SOD 1% GEL 100 GM TUBE EXT SCH (10:00)
[2023-03-13] MEDS: POLYETHYLENE (MIRALAX) 17 GM PACK PO SCH ×2 (14:17→22:16)
[2023-03-13] MEDS: ERTAPENEM SODIUM 1,000 MG in SYRINGE 0 ML IV SCH (14:29)
--- NOTE | 2023-03-13 15:08 | Billing Data ---
Date of Service March 13, 2023 Coding Level of Care Code 63381 SUB INP/OBS CARE
[2023-03-13] MEDS: FAMOTIDINE 40 MG TABLET PO SCH (22:14)
[2023-03-13] MEDS: rOPINIRole HCL 0.25 MG TABLET PO SCH (22:16)
[2023-03-14] MEDS: ACETAMINOPHEN 500 MG TAB PO SCH ×5 (04:19→21:38)
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
[2023-03-14 07:43] LABS: Basophils # (auto) 0.06 K/uL (0.00-0.20); Basophils % (auto) 0.8 %; Eosinophils # (auto) 0.07 K/uL (0.00-0.50); Eosinophils % (auto) 0.9 %; Hematocrit (blood only) 31.8 % (37.0-47.0); Hemoglobin 10.3 g/dl (12.0-16.0); Immature Granulocytes # (auto) 0.05 K/uL (0.01-0.20); Immature Granulocytes % (auto) 0.6 %; Lymphocytes % (auto) 20.7 %; Mean Corpuscular Hemoglobin 32.4 pg (25.0-34.0); Mean Corpuscular Hgb Conc 32.4 g/dL (32.0-36.0); Mean Platelet Volume 9.7 fL (9.4-12.4); Monocytes % (auto) 12.9 %; Neutrophils # (auto) 4.96 K/uL (1.40-6.50); Neutrophils % (auto) 64.1 %; Platelet Count 268 K/uL (130-400); RDW Coefficient of Variation 13.2 % (11.5-14.5); RDW Standard Deviation 48.1 fL (36.4-46.3); Red Blood Count 3.18 M/uL (4.20-5.40); White Blood Count 7.74 K/ul (4.8-10.8)
[2023-03-14 08:25] LABS: Calcium 8.9 mg/dl (8.6-10.3); Creatinine Clr Calc Pharmacy 36.5 ml/min; Est GFR (African American) 59.9 ml/min; Est GFR (Non-African American) 51.7 ml/min; Potassium 4.3 mmol/L (3.5-5.1)
[2023-03-14] MEDS: APIXABAN 2.5 MG TAB PO SCH ×2 (09:27→21:38)
[2023-03-14] MEDS: METOPROLOL SUCC 25MG EXT REL TAB PO SCH (09:28)
[2023-03-14] MEDS: CEROVITE ADV FORMULA TAB PO SCH ×2 (09:28→21:37)
[2023-03-14] MEDS: PRAVASTATIN SOD 40 MG TAB PO SCH (09:28)
[2023-03-14] MEDS: FERROUS SULFATE 325 MG TAB PO SCH (09:28)
[2023-03-14] MEDS: AMIODARONE 200 MG TAB PO SCH (09:29)
[2023-03-14] MEDS: DULoxetine HCL 30 MG CAP PO SCH (09:29)
[2023-03-14] MEDS: DICLOFENAC SOD 1% GEL 100 GM TUBE EXT SCH (09:29)
[2023-03-14] MEDS: PANTOprazole 40 MG TAB PO SCH (09:29)
[2023-03-14] MEDS: MAGNESIUM OXIDE 400 MG TAB PO SCH ×2 (09:29→21:38)
[2023-03-14] MEDS: POLYETHYLENE (MIRALAX) 17 GM PACK PO SCH ×3 (09:30→21:37)
[2023-03-14] MEDS: METOCLOPRAMIDE HCL 5 MG TABLET PO SCH ×5 (09:30→21:39)
[2023-03-14] MEDS: DULoxetine HCL 60 MG CAP PO SCH (09:30)
[2023-03-14] MEDS ORDERED: ERTAPENEM SODIUM 1,000 MG in SYRINGE 0 ML IV ONE (10:00)
--- NOTE | 2023-03-14 17:33 | Billing Data ---
Date of Service March 14, 2023 Coding Level of Care Code 86418 SUB INP/OBS CARE
[2023-03-14] MEDS: FAMOTIDINE 40 MG TABLET PO SCH (21:38)
[2023-03-14] MEDS: rOPINIRole HCL 0.25 MG TABLET PO SCH (21:38)
[2023-03-14] MEDS: MELATONIN 3 MG TAB PO PRN (21:41)
[2023-03-15] MEDS: ACETAMINOPHEN 500 MG TAB PO SCH ×4 (04:30→21:20)
[2023-03-15 07:36] LABS: Albumin Globulin Ratio 1.3 (0.9-2); Albumin Level 3.6 gm/dl (3.4-5.0); BUN Creatinine Ratio 19.6 (10-20); Bilirubin,Total 1.1 mg/dl (0.2-1.0); Calcium 9.2 mg/dl (8.6-10.3); Creatinine Clr Calc Pharmacy 39.7 ml/min; Est GFR (African American) 66.3 ml/min; Est GFR (Non-African American) 57.2 ml/min; Globulin 2.8 gm/dl (2.5-4.0); Potassium 4.5 mmol/L (3.5-5.1); Total Protein 6.4 gm/dl (6.0-8.3)
[2023-03-15 08:10] LABS: Basophils # (auto) 0.04 K/uL (0.00-0.20); Basophils % (auto) 0.5 %; Eosinophils # (auto) 0.07 K/uL (0.00-0.50); Eosinophils % (auto) 0.9 %; Hematocrit (blood only) 32.5 % (37.0-47.0); Hemoglobin 10.5 g/dl (12.0-16.0); Immature Granulocytes # (auto) 0.04 K/uL (0.01-0.20); Immature Granulocytes % (auto) 0.5 %; Lymphocytes # (auto) 1.19 K/uL (1.20-3.40); Lymphocytes % (auto) 16.1 %; Mean Corpuscular Hgb Conc 32.3 g/dL (32.0-36.0); Mean Corpuscular Volume 99.1 fL (80.0-100.0); Mean Platelet Volume 9.6 fL (9.4-12.4); Monocytes # (auto) 0.91 K/uL (0.11-0.59); Monocytes % (auto) 12.3 %; Neutrophils # (auto) 5.15 K/uL (1.40-6.50); Neutrophils % (auto) 69.7 %; Platelet Count 293 K/uL (130-400); RDW Coefficient of Variation 13.2 % (11.5-14.5); RDW Standard Deviation 47.1 fL (36.4-46.3); Red Blood Count 3.28 M/uL (4.20-5.40)
[2023-03-15] MEDS: CEROVITE ADV FORMULA TAB PO SCH ×2 (08:57→21:22)
[2023-03-15] MEDS: POLYETHYLENE (MIRALAX) 17 GM PACK PO SCH ×3 (08:57→21:19)
[2023-03-15] MEDS: MAGNESIUM OXIDE 400 MG TAB PO SCH ×2 (08:57→21:21)
[2023-03-15] MEDS: APIXABAN 2.5 MG TAB PO SCH ×2 (08:57→21:22)
[2023-03-15] MEDS: DICLOFENAC SOD 1% GEL 100 GM TUBE EXT SCH (08:58)
[2023-03-15] MEDS: AMIODARONE 200 MG TAB PO SCH (08:58)
[2023-03-15] MEDS: PANTOprazole 40 MG TAB PO SCH (08:58)
[2023-03-15] MEDS: FERROUS SULFATE 325 MG TAB PO SCH (08:58)
[2023-03-15] MEDS: METOCLOPRAMIDE HCL 5 MG TABLET PO SCH ×4 (09:00→21:22)
[2023-03-15] MEDS: DULoxetine HCL 30 MG CAP PO SCH (09:01)
[2023-03-15] MEDS: METOPROLOL SUCC 25MG EXT REL TAB PO SCH (09:01)
[2023-03-15] MEDS: PRAVASTATIN SOD 40 MG TAB PO SCH (09:01)
[2023-03-15] MEDS: DULoxetine HCL 60 MG CAP PO SCH (09:01)
--- NOTE | 2023-03-15 13:13 | Hospitalist Progress Note ---
Date of Service March 15, 2023 Assessment & Plan (1) Complicated urinary tract infection: (2) Infection due to ESBL-producing Klebsiella pneumoniae: (3) COVID-19 virus infection: (4) Hallucination, visual: (5) Restless leg: (6) Rheumatoid arthritis: (7) PAF (paroxysmal atrial fibrillation): (8) Hypertension: (9) Hypercholesterolemia: (10) GERD without esophagitis: (11) Disc degeneration, lumbar: (12) Chronic kidney disease, stage III (moderate): (13) Anxiety: (14) Depression: (15) Leukocytosis: Plan Pt is a 82 yo female who presents to the hospital on 03/01/23 for UTI, COVID infection, AMS. Contacted Case Management regarding disposition to rehab vs. SNF after discharge due to weakness and need for assistance in certain activities such as going to the bathroom, with their preference being [facility] and NOT [facility]. Will f/u. Delirium - Pt had similar event in the past with UTI; hallucinatory events upon admission, recurrences noted through this admission, some days oriented and others not - pt less delirious today, but still confused - labs and vitals stable, so suspect this is hospital-induced delirium > metabolic or due to infectious processes now that she is s/p ABs UTI -No leukocytosis, lactate negative on admission, was having dysuria that has since resolved -Treated with Augmentin for recent UTI (02/09/23) with urine cx positive for Klebsiella pneumoniae-ESB -ID consulted and recommended course of Ertapenem - completed course of ertapenem, did okay for a day or two, but then appeared ill again and had increased WBC count so restarted - s/p Ertapenem (last does yesterday) - Blood Cxs pending (03/11/23) -- negative (48 hours) - Urine Cx showing three types of organisms in high quantities that may suggest contamination. Will repeat order. 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, after pt mentioned bulging of bladder into vagina for last 2 months, suggestive of cystocele and possible source of recurrent UTIs In-hospital fall - CT-Head --> no acute abnormalities - Hip/Pelvis XRay --> no acute fractures noted - PT Re-eval noted decline in functional status since [facility] and recommend short-term rehab for discharge COVID positive -Cough and runny nose -CXR: no acute findings -No hypoxia and no significant symptoms -- no indication for further therapy -Supportive managements Paroxysmal atrial fibrillation -On Eliquis 2.5 mg BID Continue Amiodarone, Metoprol Calf pain/DVT prophylaxis - pt currently on Eliquis, 2.5 mg, BID - COVID+ infxn possible incr DVT risk - b/l Doppler US neg for presence of blood clots CKD-stage 3 - Cr 0.97, baseline less than 1.15 - Cr lvls in hospital (0.9 - 1.25) - Avoid nephrotoxic agents Depression/Anxiety Continue home medications HTN Continue home medications GERD Continue home medications Code: Full code DVT prophylaxis: Eliquis 2.5 mg BID Diet: heart healthy Admission and Anticipated Discharge Date Admission Date: March 01, 2023 Supervising Physician Co-Signing Physician Notes Resident Physician Supervision Note: I independently interviewed and examined the patient and verified the clemente history and physical, reviewed labs and image studies and agree with resident findings and care plan. No meaningful HPI review of systems obtainable. Vitals noted, Alert this am but speech unclear - sensory aphasia and unable to assess surroundings. Breathing unlabored no accessory muscle use good effort. Skin without rashes pallor or icterus. Neuro without lateralizing signs. UTI with metabolic encephalopathy -Finished course of abx - ertapenem, supportive care/reassurance. Delirium/metabolic encephalopathy -waxing and waning Likely with underlying cognitive deficit. to bring up goals of care discussion as able in future. COVID + asymptomatic. finished isolation duration. Awaiting SNF placement. otherwise as above Subjective Pt is a 82 yo female who presents to the hospital on 03/01/23 for UTI, COVID in fection, AMS. Today, pt is more awake and alert, and oriented to person and place, but not to time. Patient appears to be comfortable. She denies chest pain, SOB, fevers, chills, malaise or any other symptom. Review of Systems Review of Systems: As per HPI. Physical Exam Physical Exam: General:Alert, awake, oriented to person and place, no acute distress, pleasantly confused Cardio: Regular rate and rhythm Resp:Lungs clear to auscultation b/l, no wheezes or rhonchi, GI: Soft and nontender, nondistended, bowel sounds active Skin: Warm, pink, dry Psych: Mood-affect congruence. Results & Data Results & Data Vital Signs (Past 12 Hours) Vital Signs Temp Pulse Resp BP Pulse Ox O2 Del Method 03/15/23 07:45 Room Air 03/15/23 07:41 37.0 C 84 16 162/76 H 94 Room Air Resident Activity Tracking Resident Involvement: Resident Care Provided Care Provided: Adult Hospital Medicine
[2023-03-15] MEDS: FAMOTIDINE 40 MG TABLET PO SCH (21:21)
[2023-03-15] MEDS: rOPINIRole HCL 0.25 MG TABLET PO SCH (21:23)
[2023-03-15] MEDS: MELATONIN 3 MG TAB PO PRN (21:25)
[2023-03-16] MEDS: ACETAMINOPHEN 500 MG TAB PO SCH ×4 (04:01→21:28)
[2023-03-16 07:28] LABS: Basophils # (auto) 0.05 K/uL (0.00-0.20); Basophils % (auto) 0.7 %; Eosinophils % (auto) 1.3 %; Hematocrit (blood only) 31.1 % (37.0-47.0); Hemoglobin 10.1 g/dl (12.0-16.0); Immature Granulocytes # (auto) 0.06 K/uL (0.01-0.20); Immature Granulocytes % (auto) 0.8 %; Lymphocytes # (auto) 1.23 K/uL (1.20-3.40); Lymphocytes % (auto) 16.2 %; Mean Corpuscular Hemoglobin 32.5 pg (25.0-34.0); Mean Corpuscular Hgb Conc 32.5 g/dL (32.0-36.0); Mean Platelet Volume 9.1 fL (9.4-12.4); Monocytes # (auto) 1.02 K/uL (0.11-0.59); Monocytes % (auto) 13.4 %; Neutrophils # (auto) 5.14 K/uL (1.40-6.50); Neutrophils % (auto) 67.6 %; Platelet Count 294 K/uL (130-400); RDW Coefficient of Variation 13.4 % (11.5-14.5); RDW Standard Deviation 48.6 fL (36.4-46.3); Red Blood Count 3.11 M/uL (4.20-5.40)
[2023-03-16 07:44] LABS: Albumin Globulin Ratio 1.3 (0.9-2); Albumin Level 3.5 gm/dl (3.4-5.0); BUN Creatinine Ratio 17.6 (10-20); Bilirubin,Total 1.1 mg/dl (0.2-1.0); Calcium 9.2 mg/dl (8.6-10.3); Creatinine Clr Calc Pharmacy 40.1 ml/min; Est GFR (African American) 67.1 ml/min; Est GFR (Non-African American) 57.9 ml/min; Globulin 2.7 gm/dl (2.5-4.0); Potassium 4.1 mmol/L (3.5-5.1); Total Protein 6.2 gm/dl (6.0-8.3)
[2023-03-16] MEDS: AMIODARONE 200 MG TAB PO SCH (09:22)
[2023-03-16] MEDS: APIXABAN 2.5 MG TAB PO SCH ×2 (09:23→21:27)
[2023-03-16] MEDS: DULoxetine HCL 30 MG CAP PO SCH (09:23)
[2023-03-16] MEDS: DULoxetine HCL 60 MG CAP PO SCH (09:23)
[2023-03-16] MEDS: PRAVASTATIN SOD 40 MG TAB PO SCH (09:24)
[2023-03-16] MEDS: PANTOprazole 40 MG TAB PO SCH (09:24)
[2023-03-16] MEDS: METOPROLOL SUCC 25MG EXT REL TAB PO SCH (09:24)
[2023-03-16] MEDS: METOCLOPRAMIDE HCL 5 MG TABLET PO SCH ×4 (09:32→21:27)
[2023-03-16] MEDS: DICLOFENAC SOD 1% GEL 100 GM TUBE EXT SCH (09:32)
[2023-03-16] MEDS: MAGNESIUM OXIDE 400 MG TAB PO SCH ×2 (09:32→21:28)
[2023-03-16] MEDS: CEROVITE ADV FORMULA TAB PO SCH ×2 (09:33→21:26)
[2023-03-16] MEDS: FERROUS SULFATE 325 MG TAB PO SCH (09:34)
[2023-03-16] MEDS: POLYETHYLENE (MIRALAX) 17 GM PACK PO SCH ×3 (09:34→21:29)
--- NOTE | 2023-03-16 12:44 | Hospitalist Progress Note ---
Date of Service March 16, 2023 Assessment & Plan (1) Complicated urinary tract infection: (2) Infection due to ESBL-producing Klebsiella pneumoniae: (3) COVID-19 virus infection: (4) Hallucination, visual: (5) Restless leg: (6) Rheumatoid arthritis: (7) PAF (paroxysmal atrial fibrillation): (8) Hypertension: (9) Hypercholesterolemia: (10) GERD without esophagitis: (11) Disc degeneration, lumbar: (12) Chronic kidney disease, stage III (moderate): (13) Anxiety: (14) Depression: (15) Leukocytosis: Plan Pt is a 82 yo female who presents to the hospital on 03/01/23 for UTI, COVID infection, AMS. Case management working on rehab center vs SNF for patient to go after discharged. Delirium - Pt had similar event in the past with UTI; hallucinatory events upon admission, recurrences noted through this admission, some days oriented and others not - pt delirious today; orientation measures being used - labs and vitals stable, so suspect this is hospital-induced delirium > metabolic or due to infectious processes now that she is s/p ABs - Goals of care to be discussed in outpatient setting UTI -No leukocytosis, lactate negative on admission, was having dysuria that has since resolved -Treated with Augmentin for recent UTI (02/09/23) with urine cx positive for Klebsiella pneumoniae-ESB -ID consulted and recommended course of Ertapenem - completed course of ertapenem, did okay for a day or two, but then appeared ill again and had increased WBC count so restarted - s/p Ertapenem (last does yesterday) - Blood Cxs pending (03/11/23) -- negative (final) - Urine Cx showing three types of organisms in high quantities that may suggest contamination. 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, after pt mentioned bulging of bladder into vagina for last 2 months, suggestive of cystocele and possible source of recurrent UTIs In-hospital fall - CT-Head --> no acute abnormalities - Hip/Pelvis XRay --> no acute fractures noted - PT Re-eval noted decline in functional status since initial evaluation at admission and recommend short-term rehab for discharge COVID positive -Cough and runny nose -CXR: no acute findings -No hypoxia and no significant symptoms -- no indication for further therapy -Supportive managements Paroxysmal atrial fibrillation -On Eliquis 2.5 mg BID Continue Amiodarone, Metoprol Calf pain/DVT prophylaxis - pt currently on Eliquis, 2.5 mg, BID - COVID+ infxn possible incr DVT risk - b/l Doppler US neg for presence of blood clots CKD-stage 3 - Cr 0.97, baseline less than 1.15 - Cr lvls in hospital (0.9 - 1.25) - Avoid nephrotoxic agents Depression/Anxiety Continue home medications HTN Continue home medications GERD Continue home medications Code: Full code DVT prophylaxis: Eliquis 2.5 mg BID Diet: heart healthy Admission and Anticipated Discharge Date Admission Date: March 01, 2023 Supervising Physician Co-Signing Physician Notes Resident Physician Supervision Note: I independently interviewed and examined the patient and verified the clemente history and physical, reviewed labs and image studies and agree with resident findings and care plan. No meaningful HPI review of systems obtainable. Vitals noted, Alert this am but speech unclear - sensory aphasia and unable to assess surroundings. Breathing unlabored no accessory muscle use good effort. Skin without rashes pallor or icterus. Neuro without lateralizing signs. UTI with metabolic encephalopathy -Finished course of abx - ertapenem, supportive care/reassurance. Delirium/metabolic encephalopathy -waxing and waning Likely with underlying cognitive deficit. to bring up goals of care discussion as able in future. COVID + asymptomatic. finished isolation duration. Awaiting SNF placement. Consider goals of care discussion with daughter. otherwise as above Subjective Pt is a 82 yo female who presents to the hospital on 03/01/23 for UTI, COVID infection, AMS. Today, pt seems to be more delirious and confused. Nurse states she was found trying to "start her car" this morning and was asking "where she had parked it". They also report owning. Patient appears to be comfortable. She denies chest pain, SOB, fevers, chills, malaise or any other symptom. Review of Systems Review of Systems: As per HPI. Physical Exam Physical Exam: General:Alert, awake, confused Cardio: Regular rate and rhythm Resp:Lungs clear to auscultation b/l, no wheezes or rhonchi, GI: Soft and nontender, nondistended Skin: Warm, pink, dry Psych: Mood-affect congruence. Results & Data Results & Data Vital Signs (Past 12 Hours) Vital Signs Temp Pulse Resp BP Pulse Ox O2 Del Method 03/16/23 09:15 Room Air 03/16/23 07:11 36.5 C 96 H 16 150/75 H 95 Room Air Resident Activity Tracking Resident Involvement: Resident Care Provided Care Provided: Adult Hospital Medicine
[2023-03-16] MEDS: FAMOTIDINE 40 MG TABLET PO SCH (21:26)
[2023-03-16] MEDS: rOPINIRole HCL 0.25 MG TABLET PO SCH (21:27)
[2023-03-17] MEDS: ACETAMINOPHEN 500 MG TAB PO SCH ×2 (04:25→09:18)
[2023-03-17 07:36] LABS: Basophils # (auto) 0.06 K/uL (0.00-0.20); Basophils % (auto) 0.8 %; Eosinophils # (auto) 0.17 K/uL (0.00-0.50); Eosinophils % (auto) 2.4 %; Hematocrit (blood only) 33.4 % (37.0-47.0); Hemoglobin 10.6 g/dl (12.0-16.0); Immature Granulocytes # (auto) 0.05 K/uL (0.01-0.20); Immature Granulocytes % (auto) 0.7 %; Lymphocytes # (auto) 1.52 K/uL (1.20-3.40); Lymphocytes % (auto) 21.2 %; Mean Corpuscular Hemoglobin 31.9 pg (25.0-34.0); Mean Corpuscular Hgb Conc 31.7 g/dL (32.0-36.0); Mean Corpuscular Volume 100.6 fL (80.0-100.0); Monocytes # (auto) 0.89 K/uL (0.11-0.59); Monocytes % (auto) 12.4 %; Neutrophils # (auto) 4.47 K/uL (1.40-6.50); Neutrophils % (auto) 62.5 %; Platelet Count 329 K/uL (130-400); RDW Coefficient of Variation 13.7 % (11.5-14.5); RDW Standard Deviation 49.5 fL (36.4-46.3); Red Blood Count 3.32 M/uL (4.20-5.40); White Blood Count 7.16 K/ul (4.8-10.8)
[2023-03-17 07:55] LABS: Albumin Globulin Ratio 1.3 (0.9-2); Albumin Level 3.5 gm/dl (3.4-5.0); BUN Creatinine Ratio 21.5 (10-20); Bilirubin,Total 0.9 mg/dl (0.2-1.0); Creatinine Clr Calc Pharmacy 39.2 ml/min; Est GFR (African American) 65.4 ml/min; Est GFR (Non-African American) 56.4 ml/min; Globulin 2.7 gm/dl (2.5-4.0); Total Protein 6.2 gm/dl (6.0-8.3)
[2023-03-17] MEDS ORDERED: SODIUM CHLORIDE 0.9% 500 ML IV ONE (07:58)
[2023-03-17] MEDS: POLYETHYLENE (MIRALAX) 17 GM PACK PO SCH (09:11)
[2023-03-17] MEDS: AMIODARONE 200 MG TAB PO SCH (09:14)
[2023-03-17] MEDS: APIXABAN 2.5 MG TAB PO SCH (09:14)
[2023-03-17] MEDS: DULoxetine HCL 30 MG CAP PO SCH (09:15)
[2023-03-17] MEDS: DULoxetine HCL 60 MG CAP PO SCH (09:15)
[2023-03-17] MEDS: MAGNESIUM OXIDE 400 MG TAB PO SCH (09:16)
[2023-03-17] MEDS: METOCLOPRAMIDE HCL 5 MG TABLET PO SCH (09:16)
[2023-03-17] MEDS: FERROUS SULFATE 325 MG TAB PO SCH (09:16)
[2023-03-17] MEDS: PANTOprazole 40 MG TAB PO SCH (09:17)
[2023-03-17] MEDS: METOPROLOL SUCC 25MG EXT REL TAB PO SCH (09:17)
[2023-03-17] MEDS: CEROVITE ADV FORMULA TAB PO SCH (09:17)
[2023-03-17] MEDS: PRAVASTATIN SOD 40 MG TAB PO SCH (09:18)
[2023-03-17] MEDS: DICLOFENAC SOD 1% GEL 100 GM TUBE EXT SCH (09:20)
--- NOTE | 2023-03-17 12:40 | Discharge Summary ---
Date of Service March 17, 2023 Admission HPI Per Admitting Provider Primary Care Provider: Kimber PraterDO [place] is a 82 y/o female with PMH of HTN, Diastolic disfunction , LVH, GERD, depression, lumbar spinal stenosis, Paroxysmal atrial fibrillation, CDK stage 3, anemia, osteoporosis, rheumatoid arthritis and vitamin D deficiency there due to dysuria and visual hallucinations. Patient have a urine culture positive for klebsiella ESBL from 01/27. She was treated with amoxicillin 2 weeks ago. Patient and caregiver refers visual hallucinations last night, including animals and people. She refers lower abdominal pressure when urinating. She refers hx of recurrent urinary tract infection in the past needing admission in the past. Caregiver was tested positive for COVID last week. Patient tested positive in the ER. She refers some sporadic cough and runny nose. She denied any fevers, shortness of breath, chest pain, palpitations, abdominal pain, or any other symptoms During the ER patient received one dose of Ertapenem. No leukocytosis, lactate normal. CXR ordered. No sepsis. No fever, respiration at 16, saturating at 98. Admission Exam Per Admitting Provider Constitutional: WD/WN, vitals as above Respiratory: normal respiratory effort, lungs clear to auscultation Cardiovascular: RRR, no murmur, no edema Gastrointestinal (Abdomen): normal bowel sounds, soft, nontender, no hepatosplenomegaly Musculoskeletal: no cyanosis or clubbing, extremities motor strength 5/5 Skin: no rashes, warm and dry Principal Diagnosis Recurrent UTI with subsequent altered mental status Discharge Exam General:Alert, awake, oriented Cardio: Regular rate and rhythm Resp:Lungs clear to auscultation b/l, no wheezes or rhonchi, GI: Soft and nontender, nondistended, tenderness on palpation of the right anterior subcostal region (patient states is chronic) Skin: large bruise noted on right hip that has yellowing borders from healing process Discharge Data Allergies Allergy/AdvReac Type Severity Reaction Status Date / Time No Known Allergies Allergy Verified 02/09/23 11:48 Consultations 03/01/23 17:28 ED Decision to Admit Stat 03/03/23 10:03 Consult Infectious Diseases Routine Ordered Studies 03/02/23 11:45 US venous doppler LE BI Stat 03/07/23 13:47 CT head/brain wo con Stat Hospital Course (1) Complicated urinary tract infection: (2) Infection due to ESBL-producing Klebsiella pneumoniae: (3) COVID-19 virus infection: (4) Hallucination, visual: (5) Restless leg: (6) Rheumatoid arthritis: (7) PAF (paroxysmal atrial fibrillation): (8) Hypertension: (9) Hypercholesterolemia: (10) GERD without esophagitis: (11) Disc degeneration, lumbar: (12) Chronic kidney disease, stage III (moderate): (13) Anxiety: (14) Depression: (15) Leukocytosis: Plan Pt is a 82 yo female who presents to the hospital on 03/01/23 for UTI, COVID infection, AMS. Delirium (resolved) - Pt had similar event in the past with UTI; hallucinatory events upon admission, recurrences noted through this admission, some days oriented and others not - pt much more awake and oriented today but unable to remember the last few days - suspect this is hospital-induced delirium > metabolic or due to infectious processes now that she is s/p ABs - Encourage to discuss goals of care in outpatient setting UTI (resolved) -Treated with Augmentin for recent UTI (02/09/23) with urine cx positive for Klebsiella pneumoniae-ESB -s/p course of Ertapenem as per ID recommendations - blood cultures negative - urine culture growing possible enterobacter and julio (not final) - today not reporting dysuria or any other symptoms - Patient encouraged to f/u with PCP for evaluation and discuss possible gynecology referral after pt mentioned occasionally feeling bladder bulging into vagina for the last 2 months (cystocele?) In-hospital fall (resolved) - CT-Head --> no acute abnormalities - Hip/Pelvis XRay --> no acute fractures noted - PT Re-eval noted decline in functional status since initial evaluation at admission - Patient mentions today he has history of recurrent falls at home, which may also be the cause for the bruise on her right hip but she is unable to recall its origin. COVID positive (03/01/23) -Cough and runny nose -CXR: no acute findings -No hypoxia and no significant symptoms -- no indication for further therapy -Supportive managements Paroxysmal atrial fibrillation (Chronic, stable) -On Eliquis 2.5 mg BID - Continue Amiodarone, Metoprol Calf pain/DVT prophylaxis (Chronic, stable) - pt currently on Eliquis, 2.5 mg, BID - COVID+ infxn possible incr DVT risk - b/l Doppler US neg for presence of blood clots CKD-stage 3 (Chronic, stable) - Cr 0.97, baseline less than 1.15 - Cr lvls in hospital (0.9 - 1.25) - Avoid nephrotoxic agents Depression/Anxiety (Chronic, stable) Continue home medications HTN(Chronic, stable) Continue home medications GERD (Chronic, stable) Continue home medications Patient found to be fit for discharge to [facility] today. Total Time Total Time Spent Total Time Spent (In Minutes): As per attending attestation. Discharge Plan Discharge Items Patient Disposition: Transfer Care Home Fac Reason For Visit: UTI Discharge Diagnosis: Urinary tract infection, COVID infection Activity: Per Instructions section Non-emergency contact: Primary Care Provider Call non-emergency contact if: you have any medication questions and you have a fever Follow-up/Referrals: Kimber Prater DO [Primary Care Provider] - 03/17/23 10:20 am Diet: Regular Addtl Attending Provider Instructions: You were admitted to the hospital for urinary tract infection and positive COVID infection. You were treated with an antibiotic called ertapenem for the urinary tract infection and given supportive care for the COVID infection. A discharge summary will be sent to your primary care physician to ensure continuity of care. Please bring this discharge summary with you to your next office appointment so that your provider can review it at that time. Follow-up appointments. We have requested a follow-up appointment with your primary care physician within one week of discharge. Please call their office if you do not hear from them. We also encourage you to see your automotive internet sales consultant provider, particularly for any concerns related to persistent urinary symptoms or conditions such as burning with urination, prolapsed bladder, incomplete bladder emptying. Keep all your follow-up appointments as already scheduled. If you cannot make an appointment, notify your provider. Medications: Your medication list has been reviewed and reconciled upon discharge to ensure accuracy and continuity of care. An updated list of all your medications is included with your hospital discharge paperwork. Please review this list closely, and make note of any changes. Take your medications as instructed; do not skip a dose of your medicines. Make sure all of your doctors know every medicine you are taking (including lvvk-sts-cvknuob medicines, vitamins, and supplements). Call your primary care provider before taking any new medicines (including lgod-gar-icskweo medicines, vitamins, and supplements), because some of these may interact with your current medications, or may make your symptoms worse. Tell your primary care provider if you cannot afford your medications. CONTACT YOUR PRIMARY CARE PROVIDER if you experience any of the following: increased cough, chest congestion fevers, chills, burning with urination, increased suprapubic pain, increased urinary frequency Difficulty following your treatment plan, or difficulty taking medications CALL 911 OR GO TO THE EMERGENCY DEPARTMENT if you experience any of the following: Sudden, severe abdominal pain or nausea/vomiting Severe chest pain, or chest pain that radiates (moves) to your jaw or arm Sudden, severe shortness of breath or difficulty breathing Thank you for allowing us to participate in your care Pending Studies at Discharge: No Stand-Alone Forms: My [facility] Skilled Items Patient informed of condition?: Yes DNR: No Discharge Level of Care: Skilled Communicable Disease: Yes Discharge Prognosis: Stable Lines: None Urinary Catheter: No Medications and DC Order Prescriptions: Continued PreserVision AREDS [id number] apfw-af-[id number] capsule 1 cap PO BID diphenhydramine-acetaminophen [Tylenol PM Extra Strength] 25-500 mg tablet 1 tab PO HS PRN (Reason: Pain) magnesium oxide 400 mg (241.3 mg magnesium) tablet 400 mg PO BID Qty: 180 3RF metoprolol succinate 25 mg tablet extended release 24 hr 25 mg PO QAM Qty: 90 2RF ropinirole 0.25 mg tablet 0.25 mg PO HS Qty: 90 1RF Eliquis 2.5 mg tablet 2.5 mg PO BID Qty: 60 2RF duloxetine 60 mg capsule,delayed release(DR/EC) 60 mg PO QAM Qty: 90 1RF omeprazole 40 mg capsule,delayed release(DR/EC) 40 mg PO QAM Qty: 90 1RF pravastatin 40 mg tablet 40 mg PO DAILY Qty: 90 2RF metoclopramide HCl 5 mg tablet 5 mg PO QID 90 Days Qty: 120 1RF famotidine 40 mg tablet 40 mg PO HS Qty: 90 1RF Centrum Silver 0.4-300-250 mg-mcg-mcg tablet 1 tab PO DAILY ferrous sulfate [Iron (ferrous sulfate)] 325 mg (65 mg iron) tablet 325 mg PO DAILY Qty: 90 1RF acetaminophen [Tylenol Extra Strength] 500 mg tablet 500 mg PO Q6H Qty: 30 0RF diclofenac sodium 1.5 % drops 1 drp TOPICAL UD amiodarone 200 mg tablet 200 mg PO QAM duloxetine 30 mg capsule,delayed release(DR/EC) 30 mg PO QAM Discharge Orders: Discharge Order (Routine); Ordered 03/17/23 Ordered By: Nicole Pineda/Other Patient Handouts: UTIs Understanding Admission Data Admit Date/Time: 03/01/23 18:36 Attending Provider: Evelia Mccullough Admit Provider: Moses Valentine Primary Care Provider: Kimber Prater Other Providers: Joe Taylor; Sumeet Escobar; Mehreen Clark; Konstantin Nicholson [facility]; [facility] Other Interventions: Discharge Summary Assessment (RN) Last Done: 03/17/23 12:59 Supervising Physician Co-Signing Physician Notes Resident Physician Supervision Note: I independently interviewed and examined the patient and verified the clemente history and physical, reviewed labs and image studies and agree with resident findings and care plan. Alert this am and aware of surrounding. Having clear communication. Vitals noted, AAOx3. Breathing unlabored no accessory muscle use good effort. CTA; RRR; Neuro without lateralizing signs. Old healing right hip bruise UTI with metabolic encephalopathy -Finished course of abx - ertapenem. Delirium/metabolic encephalopathy -waxing and waning Likely with underlying cognitive deficit. to bring up goals of care discussion at SNF Mentation cleared with appropriate conversation on day of discharge. COVID + asymptomatic. finished isolation duration. Healing right hip bruise - likely had a fall at home. SNF placement for rehab. No concern of syncope - Not on any blood pressure lowering agent. No bradycardia noted. PAF - amiodarone, apixaban, metoprolol. Discharged to SNF. Consider goals of care discussion with daughter. otherwise as above Resident Activity Tracking Resident Involvement: Resident Care Provided Care Provided: Adult Hospital Medicine
== END 2023-03-17 13:39 | DRG 689 ==
LOC: ED 14:33 → SUATTDRO 18:36 → EDINP 18:36 → 2N 19:44 → 3W 03-08 21:22

== ENCOUNTER 2023-04-02 12:32 | Inpatient (IN) ==
[2023-04-02 15:19] LABS: Basophils # (auto) 0.05 K/uL (0.00-0.20); Basophils % (auto) 0.6 %; Eosinophils # (auto) 0.12 K/uL (0.00-0.50); Eosinophils % (auto) 1.4 %; Hematocrit (blood only) 38.5 % (37.0-47.0); Hemoglobin 12.2 g/dl (12.0-16.0); Immature Granulocytes # (auto) 0.03 K/uL (0.01-0.20); Immature Granulocytes % (auto) 0.4 %; Lymphocytes # (auto) 1.61 K/uL (1.20-3.40); Lymphocytes % (auto) 19.3 %; Mean Corpuscular Hemoglobin 32.5 pg (25.0-34.0); Mean Corpuscular Hgb Conc 31.7 g/dL (32.0-36.0); Mean Corpuscular Volume 102.7 fL (80.0-100.0); Monocytes # (auto) 0.68 K/uL (0.11-0.59); Monocytes % (auto) 8.2 %; Neutrophils # (auto) 5.85 K/uL (1.40-6.50); Neutrophils % (auto) 70.1 %; Platelet Count 254 K/uL (130-400); RDW Coefficient of Variation 14.7 % (11.5-14.5); RDW Standard Deviation 55.7 fL (36.4-46.3); Red Blood Count 3.75 M/uL (4.20-5.40); White Blood Count 8.34 K/ul (4.8-10.8)
[2023-04-02 15:32] LABS: Alanine Aminotransferase 25 U/L (7-52); Albumin Globulin Ratio 1.3 (0.9-2); Albumin Level 3.9 gm/dl (3.4-5.0); Alkaline Phosphatase 87 U/L (34-104); Anion Gap 7 (3-11); Aspartate Aminotransferase 23 U/L (13-39); BUN Creatinine Ratio 14.9 (10-20); Bilirubin,Total 0.6 mg/dl (0.2-1.0); Blood Urea Nitrogen 14 mg/dl (6-23); Calcium 9.2 mg/dl (8.6-10.3); Carbon Dioxide 27 mmol/L (21-32); Chloride 102 mmol/L (98-107); Est GFR (African American) 64.6 ml/min; Est GFR (Non-African American) 55.7 ml/min; Globulin 3.1 gm/dl (2.5-4.0); Glucose 97 mg/dl (70-99(Fasting)); Potassium 4.1 mmol/L (3.5-5.1); Sodium 136 mmol/L (136-145)
[2023-04-02 16:14] LABS: Appearance Urine Turbid (Clear); Bacteria Urine Automated 4+ (Negative); Bilirubin Urine Negative (Negative); Blood Urine Trace (Negative); Color Urine Dark Yellow; Glucose Urine UA Negative (Negative); Ketones Urine Trace (Negative); Leukocyte Esterase Urine 3+ (Negative); Nitrite Urine Negative (Negative); Protein Urine Trace (Negative); Specific Gravity Urine 1.027 (1.000-1.030); Urobilinogen Urine Negative (Negative); WBC Urine Automated >30 /hpf (0-5)
[2023-04-02] MEDS ORDERED: ERTAPENEM SODIUM 10 ML IV STA (18:07)
--- NOTE | 2023-04-02 18:29 | Emergency Department Note ---
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 Reports of burning and frequency as well as some urinary discomfort. 2 weeks ago had IV antibiotics for resistant UTI. Denies fever or trauma. Denies nausea or vomiting. No URI symptoms. Hospitalized and then at [facility] home since the . No falls but family state a bit loopy. But some pain in the lower abdomen to mid back. No nausea. Had some Tylenol earlier this morning. Took a tramadol but did not seem to help earlier according to family she states she felt a bit itchy. No falls. PAST MEDICAL HISTORY: As noted above MEDICATIONS: Reviewed home medications include amiodarone and apixaban SOCIAL HISTORY: Resides at home PHYSICAL EXAM: GENERAL: alert and oriented in no acute distress in wheelchair Head: normocephalic and atraumatic EYES: No injection, discharge or icterus. NECK: Trachea midline. ENT: Mucous membranes pink and moist. LUNGS: Airway patent. No retractions. Breath sounds clear with good air entry bilaterally. HEART: Regular rate and rhythm. No chest wall tenderness ABDOMEN: Soft and non-tender, without guarding or rebound. No masses noted SKIN: Acyanotic, warm, dry, without rashes EXTREMITIES: Without swelling, tenderness or deformity NEUROLOGICAL: No focal deficits. No aphasia. No facial droop or slurred speech. Normal strength and tone in the extremities. Sensation to gross touch normal. Does require 2 assist for transfers from wheelchair to CT scanner and back. Patient's laboratory studies and imaging reviewed. Differential includes Renal colic, UTI, appendicitis, diverticulitis, mesenteric ischemia, aortic pathology, infections, inflammatory bowel disease, PUD, biliary pathology, as well as other pathologies. IMPRESSION/MEDICAL DECISION MAKING: Reassuring without leukocytosis or significant renal dysfunction. Urinalysis appears grossly infected. Prior microbiology reviewed discussed with our pharmacist. 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 Will cover with daptomycin and ertapenem. Believe she needs IV antibiotics at this time although she is not septic. No focal deficits and I doubt this is CVA and may be a little confused related to the infection. Will obtain a CT of the abdomen pelvis to exclude intra-abdominal issue but feel this is likely UTI and doubt kidney stone or pyelonephritis. Denies any obvious abnormality on my review of the films. Stat rad report reviewed without acute findings reported by the radiologist. Discussed with family unclear exactly why she has a recurrence of UTI and will need to follow-up in the outpatient setting with urology and/or ID. Will give some Tylenol for discomfort. Will avoid IV fluids as there is trace effusions on the scan but has had some oral intake of water. Patient agreeable with plan to stay for treatment and hospitalist was contacted. DIAGNOSIS: Acute complicated urinary tract infection with history of resistance, abdominal pain DISPOSITION: Hospitalist will evaluate Patient was agreeable with this plan. Past Med/Surg History Medical History Closed rib fracture (~03/06/22) Urinary incontinence Pleural effusion, bilateral (01/2022) Venous insufficiency of both lower extremities Fracture, tibia and fibula, proximal Hematoma of right lower extremity Fracture of greater trochanter of right femur Fall Closed hip fracture (~06/09/21) Chronic anticoagulation Hypercholesterolemia PAF (paroxysmal atrial fibrillation) Diastolic dysfunction LVH (left ventricular hypertrophy) Grief Depression Diaphragmatic hernia Lumbar spinal stenosis Vitamin D deficiency Osteoporosis GERD without esophagitis Diverticulosis Disc degeneration, lumbar Cystic thyroid nodule Chronic kidney disease, stage III (moderate) Anxiety Mitral regurgitation Rheumatoid arthritis Osteoarthritis Macular degeneration Hypertension Scoliosis Anemia Surgical History Status post Adilia fundoplication (01/2022) History of repair of hiatal hernia (01/2022) S/P ORIF (open reduction internal fixation) fracture (~03/2021) Knee arthropathy (10/2017) S/P thyroid surgery (01/2019) Status post arthroscopic partial medial meniscectomy (11/02/17) H/O bilateral oophorectomy (04/2017) History of hysterectomy (1988) History of total hip arthroplasty History of tooth extraction History of tonsillectomy History of adenoidectomy History of cataract surgery Family History Father Coronary heart disease Colorectal cancer Kidney disease Lung disease Mother Coronary heart disease Myocardial infarction Gallbladder disease Sister Diabetes Colorectal cancer Family/Other Diabetes Denies family history of Ovarian cancer Prostate cancer Breast cancer Social History Smoking Status: Never smoker Second Hand Exposure: Yes; Do You Dip or Chew Tobacco: No; Hx Alcohol Use: No Hx Substance Use: No Preferred Language: Mongolian Communication Ability: Effective Visual Impairment: No Limitations Hearing Ability: Use of Hearing Aid Planning Lead Required: No Beliefs That Will Affect Care: None marital status: / marital status details: passed August 2018 Current Living Situation: Family Current Living Situation Comment: at home with daughter and dog current occupational status: retired current occupation: [employer] How many Children do You have: 2 Feels Safe at Home: Yes Childhood Exposure to Second-Hand Smoke: No Diet Comment: regular caffeine: Yes (1/2 cup a day) during the past year weight has: decreased > 10 lbs Dental Care, Regularly: Yes Physical Activity Frequency: Daily Seatbelt Use: always Sunscreen Use: No Assistive Devices: Walker and Wheelchair Allergies Allergies Allergy/AdvReac Type Severity Reaction Status Date / Time tramadol Allergy ITCHY Verified 04/02/23 21:36 Home Meds Home Medications Medication Instructions Recorded Confirmed ftjxzcbr-ywg-lkhts acid 0.4 1 tab PO DAILY 09/10/20 04/02/23 mg-lycopene 300 mcg-lutein 250 mcg tablet (Centrum Silver) diphenhydramine 25 1 tab PO HS PRN Pain 08/06/21 04/02/23 mg-acetaminophen 500 mg tablet (Tylenol PM Extra Strength) vitamins A,C,H-sjgs-zrbtci 4,296 1 cap PO BID 08/06/21 04/02/23 mcg-226 mg-90 mg capsule (PreserVision AREDS) amiodarone 200 mg tablet 200 mg PO QAM 03/01/23 04/02/23 diclofenac sodium 1.5 % topical 1 drp topical UD 03/01/23 04/02/23 drops duloxetine 30 mg capsule,delayed 30 mg PO QPM 03/01/23 04/02/23 release acetaminophen 500 mg tablet 500 mg PO Q6H PRN Pain 04/02/23 04/02/23 (Tylenol Extra Strength) metoclopramide HCl 5 mg tablet 5 mg PO ACHS 04/02/23 04/02/23 Previous Rx's Medication Instructions Recorded magnesium oxide 400 mg (241.3 mg 400 mg PO BID #180 tabs 02/19/22 magnesium) tablet metoprolol succinate 25 mg 25 mg PO QAM #90 tabs 06/05/22 tablet,extended release 24 hr ferrous sulfate 325 mg (65 mg 325 mg PO DAILY #90 tabs 10/08/22 iron) tablet (Iron (ferrous sulfate)) ropinirole 0.25 mg tablet 0.25 mg PO HS #90 tabs 11/16/22 apixaban 2.5 mg tablet (Eliquis) 2.5 mg PO BID #60 tabs 01/25/23 duloxetine 60 mg capsule,delayed 60 mg PO QAM #90 caps 02/01/23 release omeprazole 40 mg capsule,delayed 40 mg PO QAM #90 caps 02/03/23 release pravastatin 40 mg tablet 40 mg PO DAILY #90 tabs 02/10/23 famotidine 40 mg tablet 40 mg PO HS #90 tabs 02/23/23 Results & Data (ED) Vital Signs Vital Signs - 24 hr 04/02/23 13:07 Temperature 37.1 C Temperature Source Temporal Artery Scan Pulse Rate 82 Respiratory Rate 20 Respiratory Effort / Characteristics Non-Labored Spontaneous Respiratory Depth Normal Respiratory Pattern Regular Blood Pressure 145/71 H Blood Pressure Mean 95 Pulse Oximetry 95 Oxygen Delivery Method Room Air Sepsis Recent Fever Within 48 Hours No Sepsis New/Unexplained Change in Mental Status No Sepsis Action Taken by Nursing No Action Required Laboratory Data 04/02/23 15:00 04/02/23 15:00 Lab Results 04/02/23 Range/Units 15:00 WBC 8.34 (4.8-10.8) K/ul RBC 3.75 L (4.20-5.40) M/uL Hgb 12.2 (12.0-16.0) g/dl Hct 38.5 (37.0-47.0) % MCV 102.7 H (80.0-100.0) fL MCH 32.5 (25.0-34.0) pg MCHC 31.7 L (32.0-36.0) g/dL RDW Std Deviation 55.7 H (36.4-46.3) fL RDW Coeff of Tyra 14.7 H (11.5-14.5) % Plt Count 254 (130-400) K/uL MPV 9.0 L (9.4-12.4) fL Immature Gran % (Auto) 0.4 % Neut % (Auto) 70.1 % Lymph % (Auto) 19.3 % [place] % (Auto) 8.2 % Eos % (Auto) 1.4 % Baso % (Auto) 0.6 % Neut # (Auto) 5.85 (1.40-6.50) K/uL Lymph # (Auto) 1.61 (1.20-3.40) K/uL [place] # (Auto) 0.68 H (0.11-0.59) K/uL Eos # (Auto) 0.12 (0.00-0.50) K/uL Baso # (Auto) 0.05 (0.00-0.20) K/uL Immature Gran # (Auto) 0.03 (0.01-0.20) K/uL Sodium 136 (136-145) mmol/L Potassium 4.1 (3.5-5.1) mmol/L Chloride 102 (98-107) mmol/L Carbon Dioxide 27 (21-32) mmol/L Anion Gap 7 (3-11) BUN 14 (6-23) mg/dl Creatinine 0.94 (0.6-1.2) mg/dl Est Cr Clr Drug Dosing Not Reportable Est GFR ( Amer) 64.6 ml/min Est GFR (Non-Af Amer) 55.7 ml/min BUN/Creatinine Ratio 14.9 (10-20) Glucose 97 (70-99(Fasting)) mg/dl Calcium 9.2 (8.6-10.3) mg/dl Total Bilirubin 0.6 (0.2-1.0) mg/dl AST 23 (13-39) U/L ALT 25 (7-52) U/L Alkaline Phosphatase 87 (34-104) U/L Total Protein 7.0 (6.0-8.3) gm/dl Albumin 3.9 (3.4-5.0) gm/dl Globulin 3.1 (2.5-4.0) gm/dl Albumin/Globulin Ratio 1.3 (0.9-2) Lipase 14 (11-82) U/L Urine Color Dark Yellow Urine Appearance Turbid A (Clear) Urine pH 6.0 (4.5-7.5) Ur Specific [place] 1.027 (1.000-1.030) Urine Protein Trace H (Negative) Urine Glucose (UA) Negative (Negative) Urine Ketones Trace H (Negative) Urine Blood Trace H (Negative) Urine Nitrite Negative (Negative) Urine Bilirubin Negative (Negative) Urine Urobilinogen Negative (Negative) Ur Leukocyte Esterase 3+ H (Negative) Urine WBC (Auto) >30 H (0-5) /hpf Urine RBC (Auto) 10-30 H (0-4) /hpf U Hyaline Cast (Auto) 1-5 (0-5) /lpf U Epithel Cells (Auto) 10-20 H (0-5) /lpf Urine Bacteria (Auto) 4+ H (Negative) Administered Medications Discontinued Medications Apixaban (Apixaban 2.5 Mg Tab) 2.5 mg PO NOW STA Stop: 04/02/23 21:24 Last Admin: 04/02/23 22:29 Dose: 2.5 mg Documented By: DIONICIO Ertapenem (Ertapenem 1gm Vial) Confirm Administered Dose 100 mg .ROUTE .STK-MED ONE Stop: 04/02/23 21:55 Last Admin: 04/02/23 22:32 Dose: Not Given Documented By: DIONICIO Ertapenem (Invanz) 10 mls @ 2 mls/min IV NOW STA Stop: 04/02/23 18:11 Last Admin: 04/02/23 22:00 Dose: 2 mls/min Documented By: DIONICIO Acetaminophen (Ofirmev) 1,000 mg in 100 mls @ 400 mls/hr IV NOW STA Stop: 04/02/23 19:27 Last Admin: 04/03/23 00:04 Dose: Not Given Documented By: BIPIN Daptomycin 400 mg/ Syringe 8 mls @ 4 mls/min IV ONE ONE; Protocol Stop: 04/02/23 19:38 Last Admin: 04/02/23 22:12 Dose: 4 mls/min Documented By: DIONICIO Lactated Ringer's (Lr) 500 mls @ 999 mls/hr IV .Q31M ONE Stop: 04/02/23 21:36 Last Admin: 04/03/23 00:03 Dose: 999 mls/hr Documented By: BIPIN Melatonin (Melatonin 3 Mg Tab) 3 mg PO NOW STA Stop: 04/02/23 23:43 Last Admin: 04/03/23 00:03 Dose: 3 mg Documented By: BIPIN Imaging Data Radiologist's Impression: Abdomen/Pelvis CT 04/02/23 19:12 Exam(s): CT ABDOMEN + PELVIS Without Contrast EXAM: CT Abdomen and Pelvis Without Intravenous Contrast CLINICAL HISTORY: Reason for exam: lower abd pain to back, uti. TECHNIQUE: Axial computed tomography images of the abdomen and pelvis without intravenous contrast. CTDI is 22.2 mGy and DLP is 1009.1 mGy-cm. Automated exposure control was utilized for the study. A dose lowering technique was utilized adhering to the principles of ALARA. COMPARISON: 02/18/19 FINDINGS: Lung bases: Mild bibasilar atelectasis. Pleural space: Small pleural effusions. Heart: Low-attenuation of the cardiac blood pool suggesting anemia. Mediastinum: Small sliding-type hiatal hernia. ABDOMEN: Liver: Unremarkable. Gallbladder and bile ducts: Cholelithiasis without evidence of acute cholecystitis or biliary dilatation. Pancreas: Unremarkable. No ductal dilation. Spleen: Unremarkable. No splenomegaly. Adrenals: Unremarkable adrenal glands. Kidneys and ureters: Unremarkable. No hydronephrosis or radiopaque stones. Stomach and bowel: Sigmoid diverticulosis without diverticulitis. No bowel obstruction. PELVIS: Appendix: Normal appendix. Bladder: Unremarkable. No stones. Normal urinary bladder. Reproductive: Hysterectomy. ABDOMEN and PELVIS: Intraperitoneal space: Unremarkable. No free air. No significant fluid collection. Bones/joints: Advanced lumbar scoliosis and spondylosis. No acute fracture or dislocation. Prior ORIF left femur. Right total hip arthroplasty. Soft tissues: Mild anasarca. Vasculature: Unremarkable. No abdominal aortic aneurysm. Lymph nodes: Unremarkable. No enlarged lymph nodes. IMPRESSION: No CT evidence of acute intra-abdominal process. Electronically signed by: Martín Roque M.D. 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
[2023-04-02] MEDS ORDERED: ACETAMINOPHEN 1,000 MG/100 ML VIAL IV STA (19:13)
[2023-04-02] MEDS ORDERED: DAPTOmycin 400 MG in SYRINGE 0 ML IV ONE (19:37)
--- OUTSIDE RECORDS SUMMARY | 2023-04-02 20:21 | External Medical Summary ---
Author Name Unknown Address Unknown Organization [id number]:[facility] [place] - [address] [place] [id number] Laboratory Report Ordering Provider Test Date Status MARIANNE OCONNOR 03/24/2023 06:00:00 Final Observation Date Value Abnormality Reference (Units) Status Bacteria identified in Specimen by Culture 03/24/2023 06:00:00 Multiple rochelle suggests contamination or colonization Final Test: Culture, Urine, Quanti tative
Specimen Source: Urine, Clean Catch
Specimen Type: Urine
Specimen Date: 03/24/2023 6:00 AM
Result Date: 03/25/2023 9:04 AM
Result Status: Final result
Resulting Lab: [facility] [place]
[address]
[place] [id number]

CULTURE

Multiple rochelle suggests contamination or colonization

null Performing Location [facility] [place] - [address] [facility] [address]
--- OUTSIDE RECORDS SUMMARY | 2023-04-02 20:21 | External Medical Summary ---
Author Name Unknown Address Unknown Organization [id number]:[facility] [address] - [address] [place] [address] Laboratory Report Ordering Provider Test Date Status MARIANNE OCONNOR 03/19/2023 06:01:00 Final Observation Date Value Abnormality Reference (Units ) Status SYNC LEUKOCYTES IN BLOOD BY AUTOMATED COUNT 03/19/2023 06:01:00 7.13 4.00-10.80 (K/uL) Final Segs 03/19/2023 06:01:00 59.6 40.0-75.0 (%) Final Lymphs % 03/19/2023 06:01:00 23.0 18.0-42.0 (%) Final Monos 03/19/2023 06:01:00 14.3 Above high normal 1.0-11.0 (%) Final Eosinophils 03/19/2023 06:01:00 2.8 0.0-6.0 (%) Final Basos 03/19/2023 06:01:00 0.3 0.0-2.0 (%) Final Absolute Segs 03/19/2023 06:01:00 4.25 1.80-7.70 (K/uL) Final Lymphs, absolute 03/19/2023 06:01:00 1.64 1.00-4.80 (K/ul) Final Monos, Abs 03/19/2023 06:01:00 1.02 0.00-1.10 (K/uL) Final Eos, Abs 03/19/2023 06:01:00 0.20 0.00-0.70 (K/uL) Final Basos, Abs 03/19/2023 06:01:00 0.02 0.00-0.20 (K/uL) Final Performing Location [facility] [address] [place] [address]
--- OUTSIDE RECORDS SUMMARY | 2023-04-02 20:21 | External Medical Summary | Summary of Care ---
Author Name Unknown Organization [facility] Address [address] [place] [address] Phone [phone] Care Team Providers Care Right Of Way Maintenance Supervisor Name Role Phone Maritza Holloway MD Primary Care Provide r Reason for Visit * Reason Onset Date Comments Fdc Visit 03/25/2023 Encounter Details Date Type Department Care Team (Latest Contact Info) Description 03/25/2023 6:00 AM EST Fdc Visit [facility] [address] [place] [address] Татьяна Starkey PA-C [address] [place] [address] Urinary tract infection due to ESBL Klebsiella*; History of 2019 novel coronavirus disease (COVID-19); Stage 3a chronic kidney disease (HCC); Degeneration of lumbosacral intervertebral disc Allergies Active Allergy Reactions Criticality Noted Date Comments No Known Drug Allergy 09/06/2007 documented as of this encounter (statuses as of 03/25/2023) Medications Medication Sig Dispensed Refills Start Date End Date Status MULTIVITAMINS PO TABS 1 tab daily 0 Ac tive PreserVision AREDS Oral Capsule Take 1 Capsule by mouth in the morning. 0 03/17/2023 Active Magnesium Oxide -Mg Supplement 400 (240 Mg) MG Oral Tablet (Mag-Ox) Take 1 Tablet by mouth in the morning and 1 Tablet before bedtime. 0 03/17/2023 Active Acetaminophen 500 MG Oral Tablet (Tylenol) Take 1 Tablet by mouth every 6 hours. 0 03/17/2023 Active Metoprolol Succinate ER 25 MG Oral Tablet Extended Release 24 Hour (toPROL XL) Take 1 Tablet by mouth in the morning. 0 03/17/2023 Active Ferrous Sulfate 325 (65 Fe) MG Oral Tablet (Feosol) Take 1 Tablet by mouth daily with breakfast. 0 03/17/2023 Active rOPINIRole HCl 0.25 MG Oral Tablet (Requip) Take 1 Tablet by mouth at bedtime. 0 03/17/2023 Active Apixaban 2.5 MG Oral Tablet (Eliquis) Take 1 Tablet by mouth in the morning and 1 Tablet before bedtime. 0 03/17/2023 Active DULoxetine HCl 60 MG Oral Capsule Delayed Release Particles (Cymbalta) Take 1 Capsule by mouth in the morning. Do not cut, crush or chew. 0 03/17/2023 Active Omeprazole 40 MG Oral Capsule Delayed Release (PriLOSEC) Take 1 Capsule by mouth in the morning. 1 hour before the first meal of the day. 0 03/17/2023 Active Pravastatin Sodium 40 MG Oral Tablet (Pravachol) Take 1 Tablet by mouth daily with dinner. 0 03/17/2023 Active Metoclopramide HCl 5 MG Oral Tablet (Reglan) Take 1 Tablet by mouth in the morning and 1 Tablet at noon and 1 Tablet in the evening and 1 Tablet before bedtime. 30 minutes before meals. 0 03/17/2023 Active Famotidine 40 MG Oral Tablet (Pepcid) Take 1 Tablet by mouth every night at bedtime. 0 03/17/2023 Active DULoxetine HCl 30 MG Oral Capsule Delayed Release Particles (Cymbalta) Take 1 Capsule by mouth in the morning. Do not cut, crush or chew. Take with 60 mg for 90 mg total daily dose. 0 03/17/2023 Active Amiodarone HCl 200 MG Oral Tablet (Cordarone) Take 1 Tablet by mouth in the morning. 0 03/17/2023 Active documented as of this encounter (statuses as of 03/25/2023) Active Problems Problem Noted Date Diagnosed Date Full code status 03/18/2023 History of COVID-19 03/17/2023 PAF (paroxysmal atrial fibrillation) 03/17/2023 Rheumatoid arthritis 03/17/2023 Hypertension goal BP (blood pressure) < 140/90 1 05/18/2022 Gastroesophageal reflux disease 03/17/2023 Stage 3a chronic kidney disease 03/17/2023 Moderate episode of recurrent major depressive d isorder 03/17/2023 Anxiety 03/17/2023 Restless legs syndrome 03/17/2023 History of hip fracture 03/17/2023 Overview: 06/2021 Cognitive changes 03/17/2023 Ecchymosis 03/17/2023 Neuritis of lower extremity 06/09/2011 ADVANCE DIRECTIVE INFORMATION 02/03/2011 Overview: No, Advance Directive brochure given to patient. -mailed 02/03/2011 Venous insufficiency 11/26/2010 Slow transit constipation 08/09/2009 Dyslipidemia, goal LDL below 100 07/18/2009 Vitamin D deficiency 07/18/2009 Other allergic rhinitis 07/13/2008 Overview: ICD-10 update of inactive term Senile osteoporosis 09/06/2007 Localized osteoarthrosis not specified whether primary or secondary, hand Varicose vein of leg Persistent insomnia Degeneration of lumbosacral intervertebral disc Localized osteoarthrosis not specified whether primary or secondary, pelvic region and thigh documented as of this encounter (statuses as of 03/25/2023) Resolved Problems Problem Noted Date Diagnosed Date Resolved Date Meralgia paresthetica 07/17/20092010 Benign neoplasm of colon documented as of this encounter (statuses as of 03/25/2023) Immunizations Name Administration Dates Next Due PPD 06/17/2009,06/25/2008,06/11/2008 Pneumococcal Polysaccharide PPV23 (Pneumovax) 09/06/2007 Seasonal Influenza, Split, I IV3, With Preserve, Inj 02/24/2011,03/04/2010,04/04/2009 TD - Tetanus/Diptheria (ADULT) 01/03/2002 documented as of this encounter Social History Tobacco Use Types Packs/Day Years Used Date Smoking Tobacco: Never Smokeless Tobacco: Never Alcohol Use Standard Drinks/Week Comments Yes 0 (1 standard drink = 0.6 oz pure alcohol) 2 beers a day. 3-4 shots of vodka per day x 2-3 weeks when mother Sex and Gender Information Value Date Recorded Sex Assigned at Not on file Gender Identity Not on file Sexual Orientation Not on file Job Start Date Occupation Industry Not on file Not on file Not on file documented as of this encounter Plan of Treatment Health Maintenance Due Date Last Done Comments Depression Screening 1952 Albumin/Creatinine Ratio 1957 CKD PHOS USE SMARTSET 02012 1957 Zoster Vaccines (1 of 2) 1989 DTaP,Tdap,and Td Vaccines (1 - Tdap) 01/04/2002 01/03/2002 DXA Scan 02/21/2012 02/20/2010, 10/14/2007 COLONOSCOPY-EVERY 3 YRS AGES 18-100 08/07/2013 08/07/2010, 08/01/2009, 07/31/2009 Influenza Vaccine (FLU shot) (#1) 2022 04/11/2019, 12/21/2017, 03/16/2017, Additional history exists *BISPHONATE OR OTHER ACCEPTABLE MEDICATION NEEDED FOR OSTEOPOROSIS (REFER TO SMARTSET #1146) 03/19/2023 GFR 09/18/2023 03/19/2023, 08/03, 09/06/2007 CKD HGB USE SMARTSET 64941 03/19/202403/19, 03/19/2023, 08/18/2010, Additional history exists VITAMIN D LEVEL ONCE IN A LIFETIME-USE SMARTSET# 34790 Completed 02/24/2011, 08/18/2010, 07/17/2009 Pneumococcal Vaccine: 65+ Years Completed 08/19/2017, 09/06/2007 COVID-19 Vaccine Completed 02/09/2023, 08/2021, 05/23/2021, Additional history exists GARDASIL-HPV IMMUNIZATION SERIES Aged Out No longer eligible based on patient's age to complete this topic Hepatitis B Aged Out No longer eligi ble based on patient's age to complete this topic MENINGOCOCCAL (MENACTRA/MENVEO) Aged Out No longer eligible based on patient's age to complete this topic documented as of this encounter Medical Devices Not on filedocumented as of this encounter Visit Diagnoses Diagnosis Urinary tract infection due to ESBL Klebsiella- Primary Urinary tract infection, site not specified History of 2019 novel coronavirus disease (COVID-19) Stage 3a chronic kidney disease (HCC) Degeneration of lumbosacral intervertebral disc Degeneration of lumbar or lumbosacral intervertebral disc documented in this encounter Care Teams Right Of Way Maintenance Supervisor Relationship Specialty Start Date End Date Maritza Holloway MD [address] [facility] [address] P[facility] - General Family Medicine 03/24/23 documented as of this encounter
--- OUTSIDE RECORDS SUMMARY | 2023-04-02 20:21 | External Medical Summary | Continuity Of Care Document ---
Author Name Unknown Address [address] [place] [address] Organization [facility]) Care Team Providers Care Program Management Manager Name Role Phone Chandrika Faulkner Primary Care Provider [phone] Problems Code Description Start Date End Date Status N39.0 Urinary tract infection, site not specified Active R44.3 Hallucinations, unspecified 03/17/2023 00 Active G25.81 Restless legs syndrome 03/17/2023 Ac tive M06.849 Other specified rheu matoid arthritis, unspecified hand 03/17/2023 Active I48.0 Paroxysmal atrial fibrillation 03/17/2023 Active I10. Essential (primary) hypertension 03/17/2023 Active E78.00 Pure hypercholesterolemia, unspecified 03/17/20 Active K21.9 Gastro-esophageal re flux disease without esophagitis 03/17/2023 Active M51.36 Other intervertebral disc degeneration, lumbar region 03/17/2023 Active N18.30 Chronic kidney disease, stage 3 unspecified Active B96.1 Klebsiella pneumonia e [K. 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 03/17/2023 Active VITAL SIGNS Date Time Diastolic blood pressure Systolic blood pressure Body height Body weight Temperature SpO2 Blood Sugar Pulse Respirations 213 02831 8 23671 213 85654 9 139 NI 45791 213 24924 1 52 NI 71899 213 85816 8 56 NI 39228 213 85991 3 60 NI 213 13984 7 62 NI 213 81354 8 70.00 mm[Hg] - Sitting 114.00 mm[Hg] - Sitting 62 NI 139.50 NI 98.70 Ear 94.00 % 18.00/min 214 16471 6 70.00 mm[Hg] - Sitting 114.00 mm[Hg] - Sitting 98.70 Ear 76.00/ min 18.00/min 214 97339 1 139.00 NI 44884 214 14103 5 70.00 mm[Hg] - Lying Down 114.00 mm[Hg] - Lying Down 98.70 Ear 76.00/ min 18.00/min 91812 214 70991 5 58.00 mm[Hg] - Sitting 95.00 mm[Hg] - Sitting 97.20 Ear 92.00 % 75.00/ min 215 13794 5 90845 215 96457 0 63.00 mm[Hg] - Sitting 109.00 mm[Hg] - Sitting 98.00 Ear 94.00 % 78.00/ min 215 87138 2 60.00 mm[Hg] - Lying Down 100.00 mm[Hg] - Lying Down 98.20 Ear 80.00/ min 18.00/min 217 09958 9 72.00 mm[Hg] - Sitting 118.00 mm[Hg] - Sitting 97.80 Oral 96.00 % 86.00/ min 217 80641 1 66.00 mm[Hg] - Sitting 105.00 mm[Hg] - Sitting 97.90 Ear 96.00 % 96.00/ min 217 36013 0 67.00 mm[Hg] - Sitting 109.00 mm[Hg] - Sitting 97.70 Ear 93.00 % 84.00/ min 218 24031 7 62 NI 00359 218 37734 7 63.00 mm[Hg] - Sitting 107.00 mm[Hg] - Sitting 98.50 Oral 96.00 % 74.00/ min 219 96897 5 83.00 mm[Hg] - Sitting 133.00 mm[Hg] - Sitting 98.70 Ear 94.00 % 82.00/ min 220 50386 1 142.20 NI Immunizations Vaccine Date Status COVID-19 05/28/2020 Completed COVID-19 06/18/2020 Completed COVID-19 05/23/2021 Completed COVID-19 11/07/2021 Completed COVID-19 02/09/2023 Completed Influenza 02/09/2023 Completed
--- OUTSIDE RECORDS SUMMARY | 2023-04-02 20:21 | External Medical Summary | Summary of Care ---
Author Name Unknown Organization [facility] Address [address] [place] [address] Phone [phone] Care Team Providers Care Drum Drier Name Role Phone Maritza Holloway MD Primary Care Provide r Reason for Visit * Reason Onset Date Comments Residential Visit - Discharge 03/26/2023 Encounter Details Date Type Department Care Team (Latest Contact Info) Description 03/26/2023 8:00 AM EST Residential Visit [facility] [address] [place] [address] Татьяна Starkey PA-C [address] [place] [address] Urinary tract infection due to ESBL Klebsiella*; Delirium; Fall, subsequent encounter; History of 2019 novel coronavirus disease (COVID-19); Hypertension goal BP (blood pressure) < 140/90; PAF (paroxysmal atrial fibrillation) ([facility]); Stage 3a chronic kidney disease ([facility]); Senile osteoporosis; Dyslipidemia, goal LDL below 100 Allergies Active Allergy Reactions Criticality Noted Date Comments No Known Drug Allergy 09/06/2007 documented as of this encounter (statuses as of 03/26/2023) Medications Medication Sig Dispensed Refills Start Date End Date Status MULTIVITAMINS PO TABS 1 tab daily 0 Active PreserVision AREDS Oral Capsule Take 1 Capsule by mouth in the morning. 0 03/17/2023 03/26/2023 Discontinued (Refill) Magnesium Oxide -Mg Supplement 400 (240 Mg) MG Oral Tablet (Mag-Ox) Take 1 Tablet by mouth in the morning and 1 Tablet before bedtime. 0 03/17/2023 03/26/2023 Discontinued (Refill) Acetaminophen 500 MG Oral Tablet (Tylenol) Take 1 Tablet by mouth every 6 hours. 0 03/17/2023 03/26/2023 Discontinued (Medication List Clean Up) Metoprolol Succinate ER 25 MG Oral Tablet Extended Release 24 Hour (toPROL XL) Take 1 Tablet by mouth in the morning. 0 03/17/2023 03/26/2023 Discontinued (Refill) Ferrous Sulfate 325 (65 Fe) MG Oral Tablet (Feosol) Take 1 Tablet by mouth daily with breakfast. 0 03/17/2023 03/26/2023 Discontinued (Refill) rOPINIRole HCl 0.25 MG Oral Tablet (Requip) Take 1 Tablet by mouth at bedtime. 0 03/17/2023 03/26/2023 Discontinued (Refill) Apixaban 2.5 MG Oral Tablet (Eliquis) Take 1 Tablet by mouth in the morning and 1 Tablet before bedtime. 0 03/17/2023 03/26/2023 Discontinued (Refill) DULoxetine HCl 60 MG Oral Capsule Delayed Release Particles (Cymbalta) Take 1 Capsule by mouth in the morning. Do not cut, crush or chew. 0 03/17/2023 03/26/2023 Discontinued (Refill) Omeprazole 40 MG Oral Capsule Delayed Release (PriLOSEC) Take 1 Capsule by mouth in the morning. 1 hour before the first meal of the day. 0 03/17/2023 03/26/2023 Discontinued (Refill) Pravastatin Sodium 40 MG Oral Tablet (Pravachol) Take 1 Tablet by mouth daily with dinner. 0 03/17/2023 03/26/2023 Discontinued (Refill) Metoclopramide HCl 5 MG Oral Tablet (Reglan) Take 1 Tablet by mouth in the morning and 1 Tablet at noon and 1 Tablet in the evening and 1 Tablet before bedtime. 30 minutes before meals. 0 03/17/2023 03/26/2023 Discontinued (Refill) Famotidine 40 MG Oral Tablet (Pepcid) Take 1 Tablet by mouth every night at bedtime. 0 03/17/2023 03/26/2023 Discontinued (Refill) DULoxetine HCl 30 MG Oral Capsule Delayed Release Particles (Cymbalta) Take 1 Capsule by mouth in the morning. Do not cut, crush or chew. Take with 60 mg for 90 mg total daily dose. 0 03/17/2023 03/26/2023 Discontinued (Refill) Amiodarone HCl 200 MG Oral Tablet (Cordarone) Take 1 Tablet by mouth in the morning. 0 03/17/2023 03/26/2023 Discontinued (Refill) traMADol HCl 50 MG Oral Tablet (Ultram) Take 1 Tablet by mouth every 6 hours as needed for Pain, Moderate or Pain, Severe. 40 Tablet 0 03/25/2023 03/26/2023 Discontinued (Refill) documented as of this encounter (statuses as of 03/26/2023) Active Problems Problem Noted Date Diagnosed Date [...] as of this encounter (statuses as of 03/26/2023) Resolved Problems Problem Noted Date Diagnosed Date Resolved Date Meralgia paresthetica 07/17/20092010 Benign neoplasm of colon documented as of this encounter (statuses as of 03/26/2023) Immunizations Name Administration Dates Next Due PPD [...] Albumin/Creatinine Ratio 1958 CKD PHOS USE SMARTSET 09956 1958 Zoster Vaccines (1 of 2) 1989 DTaP,Tdap,and Td Vaccines (1 - Tdap) 01/04/2002 01/03/2002 DXA Scan 02/21/2012 02/20/2010, 10/14/2007 COLONOSCOPY-EVERY 3 YRS AGES 18-100 08/07/2013 08/07/2010, 08/01/2009, 07/31/2009 Influenza Vaccine (FLU shot) (#1) 2022 04/11/2019, 12/21/2017, 03/16/2017, Additional history exists *BISPHONATE OR OTHER ACCEPTABLE MEDICATION NEEDED FOR OSTEOPOROSIS (REFER TO SMARTSET #1146) 03/19/2023 GFR 09/18/2023 03/19/2023, 07/04, 06/25/2016, Additional history exists CKD HGB USE SMARTSET 55416 03/19/202403/19, 03/19/2023, 08/18/2010, Additional history exists VITAMIN D LEVEL ONCE IN A LIFETIME-USE SMARTSET# 75817 Completed 02/24/2011, 08/18/2010, 07/17/2009 Pneumococcal Vaccine: 65+ [...] Primary Urinary tract infection, site not specified Delirium Other alteration of consciousness Fall, subsequent encounter History of 2019 novel coronavirus disease (COVID-19) Hypertension goal BP (blood pressure) < 140/90 Unspecified essential hypertension PAF (paroxysmal atrial fibrillation) (HCC) Atrial fibrillation Stage 3a chronic kidney disease (HCC) Senile osteoporosis Dyslipidemia, goal LDL below 100 Other and unspecified hyperlipidemia documented in this encounter Care Teams Drum Drier Relationship Specialty Start Date End Date Maritza Holloway MD [address] [place], [place] [address] [address] PCP - General Family Medicine 03/24/23 documented as of this encounter
--- OUTSIDE RECORDS SUMMARY | 2023-04-02 20:21 | External Medical Summary | Summary of Care ---
Author Name Unknown Organization [facility] Address [address] [place] [address] Phone [phone] Care Team Providers Care Energy Conservation Director Name Role Phone Brendon Prater PA-C Primary Care Provider Reason for Visit * Reason Onset Date Comments Skilled Visit 03/23/2023 Encounter Details Date Type Department Care Team (Latest Contact Info) Description 03/23/2023 9:30 AM EST [facility] Visit [facility] [address] [place] [address] Татьяна Starkey PA-C [address] [place] [address] Urinary tract infection due to ESBL Klebsiella*; History of 2019 novel coronavirus disease (COVID-19); Stage 3a chronic kidney disease (HCC); PAF (paroxysmal atrial fibrillation) ([facility]) Allergies Active Allergy Reactions Criticality Noted Date Comments No Known Drug Allergy 09/06/2007 documented as of this encounter (statuses as of 03/23/2023) Medications Medication Sig Dispensed Refills Start Date [...] as of this encounter (statuses as of 03/23/2023) Active Problems Problem Noted Date Diagnosed Date [...] as of this encounter (statuses as of 03/23/2023) Resolved Problems Problem Noted Date Diagnosed Date Resolved Date Meralgia paresthetica 07/17/20092010 Benign neoplasm of colon documented as of this encounter (statuses as of 03/23/2023) Immunizations Name Administration Dates Next Due PPD [...] Albumin/Creatinine Ratio 1958 CKD PHOS USE SMARTSET 96817 1958 Zoster Vaccines (1 of 2) 1989 DTaP,Tdap,and Td Vaccines (1 - Tdap) 01/04/2002 01/03/2002 DXA Scan 02/21/2012 02/20/2010, 10/14/2007 COLONOSCOPY-EVERY 3 YRS AGES 18-100 08/07/2013 08/07/2010, 08/01/2009, 07/31/2009 Influenza Vaccine (FLU shot) (#1) 2022 04/11/2019, 12/21/2017, 03/16/2017, Additional history exists *BISPHONATE OR OTHER ACCEPTABLE MEDICATION NEEDED FOR OSTEOPOROSIS (REFER TO SMARTSET #1146) 03/19/2023 GFR 09/18/2023 03/19/2023, 08/03, 09/06/2007 CKD HGB USE SMARTSET 41517 03/19/202403/19, 03/19/2023, 08/18/2010, Additional history exists VITAMIN D LEVEL ONCE IN A LIFETIME-USE SMARTSET# 65566 Completed 02/24/2011, 08/18/2010, 07/17/2009 Pneumococcal Vaccine: 65+ [...] (COVID-19) Stage 3a chronic kidney disease (HCC) PAF (paroxysmal atrial fibrillation) (HCC) Atrial fibrillation documented in this encounter Care Teams Energy Conservation Director Relationship Specialty Start Date End Date Brendon Prater PA-C PCP - General Physician Associate Artistic Director 01/01/14 documented as of this encounter
--- OUTSIDE RECORDS SUMMARY | 2023-04-02 20:21 | External Medical Summary ---
Author Name Unknown Address Unknown Organization [facility] [address] [place] [id number] Laboratory Report Ordering Provider Test Date Status MARIANNE OCONNOR 03/19/2023 06:01:00 Final Observation Date Value Abnormality Reference (Units ) Status Nucleated erythrocytes/100 leukocytes [Ratio] in Blood by Automated count 03/19/2023 06:01:00 Final Performing Location [facility] [address] [place] [id number]
--- OUTSIDE RECORDS SUMMARY | 2023-04-02 20:21 | External Medical Summary | Continuity Of Care Document ---
Author Name Unknown Address [address] [place] [address] Organization [facility]) Care Team Providers Care Leveling Machine Operator Name Role Phone Chandrika Faulkner Primary Care Provider [phone] Problems Code Description Start Date End Date [...] Temperature SpO2 Blood Sugar Pulse Respirations 213 14118 8 59281 213 30481 9 139 NI 67050 213 03316 1 52 NI 66123 213 27996 8 56 NI 03466 213 64622 3 60 NI 213 07149 7 62 NI 213 77713 8 70.00 mm[Hg] - Sitting 114.00 mm[Hg] - Sitting 62 NI 139.50 NI 98.70 Ear 94.00 % 18.00/min 214 38412 6 70.00 mm[Hg] - Sitting 114.00 mm[Hg] - Sitting 98.70 Ear 76.00/ min 18.00/min 214 30428 1 139.00 NI 11738 214 40182 5 70.00 mm[Hg] - Lying Down 114.00 mm[Hg] - Lying Down 98.70 Ear 76.00/ min 18.00/min 61755 214 30598 5 58.00 mm[Hg] - Sitting 95.00 mm[Hg] - Sitting 97.20 Ear 92.00 % 75.00/ min 215 49727 5 77755 215 31360 0 63.00 mm[Hg] - Sitting 109.00 mm[Hg] - Sitting 98.00 Ear 94.00 % 78.00/ min 215 42527 2 60.00 mm[Hg] - Lying Down 100.00 mm[Hg] - Lying Down 98.20 Ear 80.00/ min 18.00/min 217 59114 9 72.00 mm[Hg] - Sitting 118.00 mm[Hg] - Sitting 97.80 Oral 96.00 % 86.00/ min 217 40351 1 66.00 mm[Hg] - Sitting 105.00 mm[Hg] - Sitting 97.90 Ear 96.00 % 96.00/ min 217 94405 0 67.00 mm[Hg] - Sitting 109.00 mm[Hg] - Sitting 97.70 Ear 93.00 % 84.00/ min 218 55396 7 62 NI 77718 218 03166 7 63.00 mm[Hg] - Sitting 107.00 mm[Hg] - Sitting 98.50 Oral 96.00 % 74.00/ min 219 17976 5 83.00 mm[Hg] - Sitting 133.00 mm[Hg] - Sitting 98.70 Ear 94.00 % 82.00/ min 220 79569 1 142.20 NI Immunizations Vaccine Date Status COVID-19 05/28/2020 Completed COVID-19 06/18/2020 Completed COVID-19 05/23/2021 Completed COVID-19 11/07/2021 Completed COVID-19 02/09/2023 Completed Influenza 02/09/2023 Completed
--- OUTSIDE RECORDS SUMMARY | 2023-04-02 20:21 | External Medical Summary | Summary of Care ---
Author Name Unknown Organization [facility] Address [address] [place] [address] Phone [phone] Care Team Providers Care Management Accountant Name Role Phone Maritza Holloway MD Primary Care Provide r Reason for Visit * Reason Onset Date Comments Medication Refill 03/25/2023 Encounter Details Date Type Department Care Team (Late st Contact Info) Description 03/25/2023 Refill [facility] [address] [place] [address] Татьяна Starkey PA-C [address] [place] [address] Allergies Active Allergy Reactions Criticality Noted Date [...] mouth in the morning. 0 03/17/2023 Active traMADol HCl 50 MG Oral Tablet (Ultram) Take 1 Tablet by mouth every 6 hours as needed for Pain, Moderate or Pain, Severe. 40 Tablet 0 03/25/2023 Active documented as of this encounter (statuses [...] on file documented as of this encounter Miscellaneous Notes * Telephone Encounter - Татьяна Starkey PA-C - 03/25/2023 9:57 AM EST RX TRAMADOL 50MG Q SIX HOURS PRN MOD TO SEVERE PAIN #40 R0 SENT ELECTRONICALLY TO [facility] documented in this encounter Plan of Treatment Health Maintenance Due Date Last Done Comments Depression Screening 1952 Albumin/Creatinine Ratio 1957 CKD PHOS USE SMARTSET 84741 1958 Zoster Vaccines (1 of 2) 1989 DTaP,Tdap,and Td Vaccines (1 - Tdap) 01/04/2002 01/03/2002 DXA Scan 02/21/2012 02/20/2010, 10/14/2007 COLONOSCOPY-EVERY 3 YRS AGES 18-100 08/07/2013 08/07/2010, 08/01/2009, 07/31/2009 Influenza Vaccine (FLU shot) (#1) 2022 04/11/2019, 12/21/2017, 03/16/2017, Additional history exists *BISPHONATE OR OTHER ACCEPTABLE MEDICATION NEEDED FOR OSTEOPOROSIS (REFER TO SMARTSET #1146) 03/19/2023 GFR 09/18/2023 03/19/2023, 08/03, 09/06/2007 CKD HGB USE SMARTSET 89360 03/19/202403/19, 03/19/2023, 08/18/2010, Additional history exists VITAMIN D LEVEL ONCE IN A LIFETIME-USE SMARTSET# 09963 Completed 02/24/2011, 08/18/2010, 07/17/2009 Pneumococcal Vaccine: 65+ [...] Not on filedocumented as of this encounter Care Teams Management Accountant Relationship Specialty Start Date End Date [facility]itza Holloway [facility] [address] [facility] [address] PCP - General Family Medicine 03/24/23 documented as of this encounter
--- OUTSIDE RECORDS SUMMARY | 2023-04-02 20:21 | External Medical Summary | Summary of Care ---
Author Name Unknown Organization [facility] Address [address] [place] [address] Phone [phone] Care Team Providers Care Drug And Alcohol Counsellor Name Role Phone Maritza Holloway MD Primary Care Provide r Encounter Details Date Type Department Care Team (Late st Contact Info) Description 03/26/2023 Orders Only [facility] [place] [address] [place] [address] Татьяна Starkey PA-C [address] [place] [address] Allergies Active Allergy Reactions Criticality Noted Date Comments No Known Drug Allergy 09/06/2007 documented as of this encounter (statuses as of 03/26/2023) Medications Medication Sig Dispensed Refills Start Date End Date Status MULTIVITAMINS PO TABS 1 tab daily 0 Active Amiodarone HCl 200 MG Oral Tablet (Cordarone) Take 1 Tablet by mouth in the morning. 30 Tablet 0 03/26/2023 Active Apixaban 2.5 MG Oral Tablet (Eliquis) Take 1 Tablet by mouth in the morning and 1 Tablet before bedtime. 60 Tablet 0 03/26/2023 Active DULoxetine HCl 30 MG Oral Capsule Delayed Release Particles (Cymbalta) Take 1 Capsule by mouth in the morning. Do not cut, crush or chew. Take with 60 mg for 90 mg total daily dose. 30 Capsule 0 03/26/2023 Active DULoxetine HCl 60 MG Oral Capsule Delayed Release Particles (Cymbalta) Take 1 Capsule by mouth in the morning. Do not cut, crush or chew. 30 Capsule 0 03/26/2023 Active Famotidine 40 MG Oral Tablet (Pepcid) Take 1 Tablet by mouth every night at bedtime. 30 Tablet 0 03/26/2023 Active Ferrous Sulfate 325 (65 Fe) MG Oral Tablet (Feosol) Take 1 Tablet by mouth daily with breakfast. 30 Tablet 0 03/26/2023 Active Magnesium Oxide -Mg Supplement 400 (240 Mg) MG Oral Tablet (Mag-Ox) Take 1 Tablet by mouth in the morning and 1 Tablet before bedtime. 60 Tablet 0 03/26/2023 Active Metoclopramide HCl 5 MG Oral Tablet (Reglan) Take 1 Tablet by mouth in the morning and 1 Tablet at noon and 1 Tablet in the evening and 1 Tablet before bedtime. 30 minutes before meals. 120 Tablet 0 03/26/2023 Active Metoprolol Succinate ER 25 MG Oral Tablet Extended Release 24 Hour (toPROL XL) Take 1 Tablet by mouth in the morning. 30 Tablet 0 03/26/2023 Active Omeprazole 40 MG Oral Capsule Delayed Release (PriLOSEC) Take 1 Capsule by mouth in the morning. 1 hour before the first meal of the day. 30 Capsule 0 03/26/2023 Active Pravastatin Sodium 40 MG Oral Tablet (Pravachol) Take 1 Tablet by mouth daily with dinner. 30 Tablet 0 03/26/2023 Active PreserVision AREDS Oral Capsule Take 1 Capsule by mouth in the morning. 30 Capsule 0 03/26/2023 Active rOPINIRole HCl 0.25 MG Oral Tablet (Requip) Take 1 Tablet by mouth at bedtime. 30 Tablet 0 03/26/2023 Active traMADol HCl 50 MG Oral Tablet (Ultram) Take 1 Tablet by mouth every 6 hours as needed for Pain, Moderate or Pain, Severe. 40 Tablet 0 03/26/2023 Active PreserVision AREDS Oral Capsule Take 1 Capsule by mouth in the morning. 0 03/17/2023 03/26/2023 Discontinued (Refill) Magnesium Oxide -Mg Supplement 400 (240 Mg) MG Oral Tablet (Mag-Ox) Take 1 Tablet by mouth in the morning and 1 Tablet before bedtime. 0 03/17/2023 03/26/2023 Discontinued (Refill) Metoprolol Succinate ER 25 MG Oral Tablet [...] Albumin/Creatinine Ratio 1958 CKD PHOS USE SMARTSET 14598 1957 Zoster Vaccines (1 of 2) 1989 [...] Additional history exists CKD HGB USE SMARTSET 47821 03/19/202403/19, 03/19/2023, 08/18/2010, Additional history exists VITAMIN D LEVEL ONCE IN A LIFETIME-USE SMARTSET# 16085 Completed 02/24/2011, 08/18/2010, 07/17/2009 Pneumococcal Vaccine: 65+ [...] filedocumented as of this encounter Care Teams Drug And Alcohol Counsellor Relationship Specialty Start Date End Date Maritza Holloway MD [address] [facility] [place] [address] PCP - General Family Medicine 03/24/23 documented as of this encounter
--- OUTSIDE RECORDS SUMMARY | 2023-04-02 20:21 | External Medical Summary ---
Author Name Unknown Address Unknown Organization [facility] [address] [place] [id number] Laboratory Report Ordering Provider Test Date Status MARIANNE OCONNOR 03/19/2023 06:01:00 Final Observation Date Value Abnormality Reference (Units ) Status WBC, Total 03/19/2023 06:01:00 7.13 4.00-10.8 0 (K/uL) Final RBC 03/19/2023 06:01:00 3.16 3.85-5.15 (M/uL) Final Hemoglobin 03/19/2023 06:01:00 10.4 Below low normal 12 .0-15.3 (g/dL) Final HCT 03/19/2023 06:01:00 32.6 Below low normal 36. 0-45.2 (%) Final MCV 03/19/2023 06:01:00 103.2 81.5-97.5 (fL) Final MCH 03/19/2023 06:01:00 32.9 27.0-34.0 (pg) Final MCHC 03/19/2023 06:01:00 31.9 32.0-36.0 (g/dL) Final RDW 03/19/2023 06:01:00 13.9 11.5-15.5 (%) Final Platelets 03/19/2023 06:01:00 353 140-400 (K /uL) Final MPV 03/19/2023 06:01:00 9.3 6.6-11.1 ( fL) Final Performing Location [facility] [address] [place] [id number]
--- OUTSIDE RECORDS SUMMARY | 2023-04-02 20:21 | External Medical Summary ---
Author Name Unknown Address Unknown Organization [facility] [address] [place] [address] Laboratory Report Ordering Provider Test Date Status MARIANNE OCONNOR 03/19/2023 06:01:00 Final Observation Date Value Abnormality Reference (Units ) Status BUN 03/19/2023 06:01:00 20 6-20 (mg/dL) Final Creatinine 03/19/2023 06:01:00 1.2 Above high normal 0.5-1.0 (mg/dL) Final Glomerular filtration rate/1.73 sq M.predicted [Volume Rate/Area] in Serum, Plasma or Blood by Creatinine-based formula (CKD-EPI) 03/19/2023 06:01:00 46 Below low normal >=60 (mL/min) Final eGFR is calculated based on the CKD-EPI 2020 equation SODIUM 03/19/2023 06:01:00 139 135-146 (m mol/L) Final Potassium 03/19/2023 06:01:00 4.3 3.5-5.1 (m mol/L) Final Cl 03/19/2023 06:01:00 100 98-107 (mm ol/L) Final CO2 03/19/2023 06:01:00 30 22-32 (mmo l/L) Final Anion gap 03/19/2023 06:01:00 9 7-15 (mmol /L) Final Glucose 03/19/2023 06:01:00 126 Above high normal 70 -120 (mg/dL) Final Calcium 03/19/2023 06:01:00 8.8 8.4-10.2 ( mg/dL) Final [facility] [place] [address]
--- OUTSIDE RECORDS SUMMARY | 2023-04-02 20:22 | External Medical Summary | Summary of Care ---
Author Name Unknown Organization [facility] Address [address] [place] [address] Phone [phone] Care Team Providers Care Wooden Box Maker Name Role Phone Brendon Prater PA-C Primary Care Provider Reason for Visit * Reason Onset Date Comments Shelter Visit - Admission 03/17/2023 Encounter Details Date Type Department Care Team (Latest Contact Info) Description 03/17/2023 9:30 AM EST Shelter Visit [address] [place] [address] Maritza Holloway MD [address] [place] [address] [place] [address] Urinary tract infection due to extended-spectrum beta lactamase (ESBL)-producing Klebsiella*; Delirium; History of COVID-19; Fall, subsequent encounter; PAF (paroxysmal atrial fibrillation) ([facility]); Rheumatoid arthritis, involving unspecified site, unspecified whether rheumatoid factor present ([facility]); Hypertension goal BP (blood pressure) < 140/90; Gastroesophageal reflux disease, unspecified whether esophagitis present; Stage 3a chronic kidney disease ([facility]); Moderate episode of recurrent major depressive disorder ([facility]); Restless legs syndrome; Cognitive changes; Anxiety; Dyslipidemia, goal LDL below 100; Ecchymosis Allergies Active Allergy Reactions Criticality Noted Date Comments No Known Drug Allergy 09/06/2007 documented as of this encounter (statuses as of 03/17/2023) Medications Medication Sig Dispensed Refills Start Date [...] mouth in the morning. 0 03/17/2023 Active PERCOCET 5-325 MG PO TABS 1-2 tabs every 4 hours for pain as needed 0 3 Discontinued ALENDRONATE SODIUM 70 MG PO TABSIndications:Nae le osteoporosis One pill by mouth once a week with large glass of water as directed 16 Tab 3 02/24/2011 3 Discontinued VITAMIN D 1000 UNIT PO CAPSIndications:Carmen min D deficiency 3 capsules daily 1 Cap 0 02/25/2011 3 Discontinued TRAMADOL HCL 50 MG PO TABSIndications:Dege neration of lumbosacral intervertebral disc One pill by mouth every 4 hours as needed for pain. Take with 500 mg Tylenol pill. 40 Tab 0 08/13/2011 3 Discontinued documented as of this encounter (statuses as of 03/17/2023) Active Problems Problem Noted Date Diagnosed Date History of COVID-19 03/17/2023 PAF (paroxysmal atrial [...] as of this encounter (statuses as of 03/17/2023) Resolved Problems Problem Noted Date Diagnosed Date Resolved Date Meralgia paresthetica 07/17/20092010 Benign neoplasm of colon documented as of this encounter (statuses as of 03/17/2023) Immunizations Name Administration Dates Next Due PPD [...] on file documented as of this encounter Progress Notes * Maritza Holloway MD - 03/17/2023 3:16 PM EST ADMISSION HISTORY and PHYSICAL TRANSITION EVENT: Type: SNF admission Date: March 17 Code Status: Full Code Name: Brionna Carvajal Date of : 1940 This note pertains to care provided at [facility]. Please see facility medical record for original note. This note is not to be edited or addended in [employer]. Editing or addending needs to occur in the facilities medical record. S: Brionna Carvajal had been admitted to [facility] from [facility] for PT and OT. Recently admitted to [facility] on 03/01/23 because of visual hallucinations, falls, UTI with ESBL Klebsiella pneumoniae, and COVID-19 virus infection and was transferred here and admitted on 03/17/2023. Patient of Dr. Kimber Prater with PMH of hypertension, PAF on Eliquis and amiodarone, dyslipidemia, stage 3a CKD, GERD, RA, osteoarthritis, depression, anxiety, osteoporosis, h/o fall with hip fracture and rib fractures in 2021, cognitive changes, and iron deficiency anemia who presented to the ED with hallucinations and confusion consistent with prior episodes of UTI with ESBL E Coli. Her daughter, with whom she lives and is her primary marker shipments, tested positive for COVID the week prior to patient's admission.Patient denied any cough or SOB on admission. She had been recently treated at the beginning of February for a UTI with Augmentin and culture was positive for ESBL E Coli. In the ED, UA was grossly positive and she was begun on Ertapenem. Her COVID test was also positive. Her WBC was normal at 7.5 and her H&H normal at 12.7 and 40.1. Creatinine also normal at 0.97. CXR was negative. Hip x-rays were negative for acute fractures. Bilateral venous dopplers were negative for DVT. Patient was admitted and begun on IV Ertapenem. ID consultation obtained, who recommended 5 day course, which she completed, but then had leukocytosis and was treated with additional Ertapenem, whichwas completed prior to discharge. Her urine culture grew ESBL Klebsiella pneumoniae. Blood cultureswere negative. Repeat urine culture on 03/16/23 grew probable Enterococcus and 20,000 Shea albicans/dubliniensis. It does not appear this was treated. Patient did not require oxygen or specific treatment for COVID. It was noted she had mild rhinorrhea and cough but also that she has chronic rhinorrhea. Repeat CXR on 03/11/23 showed bibasilar atelectasis and trace bilateral pleural effusions. Patient was noted to having ongoing delirium throughout her admission with at times being very confused including once telling a nurse her car wouldn't start. She had a fall while admitted and head CT was done 03/07/23 that was negative for acute changes and showed atrophy and microvascular ischemicchanges. Patient had no medication changes on discharge. She lives at home with her daughter. Patient states her house is all on one floor and there is a ramp to enter. Patient knows the year and month but is not sure where she is right now, although she was just moved from the hospital. States she is at "[facility], I guess" when asked. She is able to answer most questions appropriately but when asked if she fell before being admitted, she describes falls from last year where she fractured ribs and her hip. She reports having some pain over her right flank that has been present the whole time she was admitted. She does have a large purple bruise on her right hip area near where she indicates the pain. Reports appetite is good and eating does not increase the pain. Denies cough, congestion, or dysuria. Denies chest pain or shortness of breath. Past Medical History: Patient Active Problem List Diagnosis Code Senile osteoporosis M81.0 Localized osteoarthrosis not specified whether primary or secondary, hand M19.049 Varicose vein of leg I83.90 Persistent insomnia G47.00 Other allergic rhinitis J30.89 Dyslipidemia, goal LDL below 100 E78.5 Vitamin D deficiency E55.9 Slow transit constipation K59.01 Degeneration of lumbosacral intervertebral disc M51.37 Localized osteoarthrosis not specified whether primary or secondary, pelvic region and thigh M16.10 Venous insufficiency I87.2 ADVANCE DIRECTIVE INFORMATION Neuritis of lower extremity G57.90 History of COVID-19 Z86.16 PAF (paroxysmal atrial fibrillation) ([facility]) I48.0 Rheumatoid arthritis ([facility]) M06.9 Hypertension goal BP (blood pressure) < 140/90 I10 Gastroesophageal reflux disease K21.9 Stage 3a chronic kidney disease ([facility]) N18.31 Moderate episode of recurrent major depressive disorder ([facility]) F33.1 Anxiety F41.9 Restless legs syndrome G25.81 History of hip fracture Z87.81 Cognitive changes R41.89 Ecchymosis R58 Current Outpatient Medications Medication Sig Dispense Refill PreserVision AREDS Oral Capsule Take 1 Capsule by mouth in the morning. Magnesium Oxide -Mg Supplement 400 (240 Mg) MG Oral Tablet (Mag-Ox) Take 1 Tablet by mouth in the morning and 1 Tablet before bedtime. Acetaminophen 500 MG Oral Tablet (Tylenol) Take 1 Tablet by mouth every 6 hours. Metoprolol Succinate ER 25 MG Oral Tablet Extended Release 24 Hour (toPROL XL) Take 1 Tablet by mouth in the morning. Ferrous Sulfate 325 (65 Fe) MG Oral Tablet (Feosol) Take 1 Tablet by mouth daily with breakfast. rOPINIRole HCl 0.25 MG Oral Tablet (Requip) Take 1 Tablet by mouth at bedtime. Apixaban 2.5 MG Oral Tablet (Eliquis) Take 1 Tablet by mouth in the morning and 1 Tablet before bedtime. DULoxetine HCl 60 MG Oral Capsule Delayed Release Particles (Cymbalta) Take 1 Capsule by mouth in the morning. Do not cut, crush or chew. Omeprazole 40 MG Oral Capsule Delayed Release (PriLOSEC) Take 1 Capsule by mouth in the morning. 1 hour before the first meal of the day. Pravastatin Sodium 40 MG Oral Tablet (Pravachol) Take 1 Tablet by mouth daily with dinner. Metoclopramide HCl 5 MG Oral Tablet (Reglan) Take 1 Tablet by mouth in the morning and 1 Tablet at noon and 1 Tablet in the evening and 1 Tablet before bedtime. 30 minutes before meals. Famotidine 40 MG Oral Tablet (Pepcid) Take 1 Tablet by mouth every night at bedtime. DULoxetine HCl 30 MG Oral Capsule Delayed Release Particles (Cymbalta) Take 1 Capsule by mouth in the morning. Do not cut, crush or chew. Take with 60 mg for 90 mg total daily dose. Amiodarone HCl 200 MG Oral Tablet (Cordarone) Take 1 Tablet by mouth in the morning. MULTIVITAMINS PO TABS 1 tab daily No current facility-administered medications for this visit. Review of patient's allergies indicates: Allergen Reactions No Known Drug Allergy Social History Tobacco Use Smoking status: Never Smokeless tobacco: Never Substance Use Topics Alcohol use: Yes Comment: 2 beers a day. 3-4 shots of vodka per day x 2-3 weeks when mother Vaping/E-Cigarette Use Vaping/E-Cigarette Substances Vaping/E-Cigarette Devices Past Surgical History: Procedure Laterality Date COLONOSCOPY W/ LESION REMOVAL, SNARE 08/01/09 polyps repeat in 1 yrt-tubular adenoma and hyperplastic polyps COLONOSCOPY W/ LESION REMOVAL, SNARE 08/07/2010 diverticulosis.polyps x2 --hyperplastic tissue in transverse colon next to tattoo--repeat in 3 yrs COLONOSCOPY, DIAGNOSTIC (RECTUM) 07/31/09 severe divertuculosis & poor prep REMOVE TONSILS & ADENOIDS, UNDER 12 1946 [facility] TOTAL ABD HYSTERECTOMY W/WO REMOVAL OF TUBE(S) 1988 [facility] [place] [place] - prolapse of uterus - ovaries in TOTAL HIP REPLACEMENT & PROSTHESIS 01/29/11 Dr Kirk- [facility]- right hip US ABDOMEN COMPLETE 08/20/10 Normal abdominal sonogram, with note made of a prominent appearing right renal artery US PELVIS TRANS-ABDOMINAL 08/20/10 right ovarian cyst No family history on file. Family Status Relation Status Mo at age 89 heart disease and lung disease Fa at age 87 MS - sudden Sis Alive Sis at age 73 DM Speedy Alive Speedy Alive Review of Systems: Constitutional ROS: No change in weight, No fevers, sweats, or chills, and +weakness Eye ROS: No eye pain, redness, discharge and +macular degeneration Ear ROS: No ear pain, No drainage, and No tinnitus or vertigo Nose ROS: No history of frequent colds or sinusitis, No significant epistaxis, and +allergic rhinitis Mouth/Throat ROS: No bleeding gums, No thrush, or No sore throat Pulmonary ROS: No cough, sputum, or hemoptysis, No wheezing, No shortness of breath, and No recent change in breathing Cardiovascular ROS: No chest pain, No shortness of breath, No dyspnea on exertion, No orthopnea, Noparoxysmal nocturnal dyspnea, No edema, No palpitations, No syncope, and +PAF Gastrointestinal ROS: No abdominal pain, No change in bowel habits, No nausea, vomiting, diarrhea, or constipation, No hematemesis, No blood in stools or black tarry stools, No abdominal bloating or early satiety, and +GERD on 3 medications chronically Genito-Urinary Female ROS: +recurrent UTI Musculoskeletal/Extremities ROS: +RA and OA Hematologic/Lymphatic ROS: No abnormal bleeding, No chills, and +right side bruise, +chronic anticoagulation, and iron deficiency anemia Skin/Integumentary ROS: No rash Neurologic ROS: No headaches, No seizures, and +cognitive changes Endocrine ROS: No heat intolerance, No cold intolerance, No thyroid trouble, No excessive thirst orurination, and No history of diabetes Psychiatric ROS: +depression and anxiety ADL skills: dependent Ambulates with walker OBJECTIVE: PHYSICAL EXAM: I reviewed the most recent facilities vitals. Refer to vital signs flowsheet in half-way chart.General: alert, no distress, well nourished, and well developed Head: Normocephalic, No masses, lesions, tenderness or abnormalities Eye Exam: PERRLA, extraocular movements intact, conjunctiva are pink and non- injected, sclera clear Ears: External ears normal Nose: no mucosal erythema, no mucosal edema, no purulent discharge Oropharynx: no exudate, no erythema, lips, buccal mucosa, and tongue normal, and mucous membranes are moist Neck: supple, no adenopathy, no bruits Heart: regular rate & rhythm, no murmur, and no gallops Lungs: chest symmetric with normal AP diameter, no chest deformities noted, no chest wall tenderness, lungs clear to auscultation Abdomen: abdomen soft, non-tender, normal bowel sounds, and no masses or organomegaly. +large purple ecchymosis of right hip/flank area Extremities: no clubbing, no cyanosis, +trace woody nonpitting edema bilaterally. +healing abrasions of left anterior stewart Neuro Exam: no focal motor/sensory deficits, alert and oriented x 2, no focal deficits ASSESSMENT: Urinary tract infection due to extended-spectrum beta lactamase (ESBL)-producing Klebsiella (Primary)--completed IV Ertapenem. Currently denies any urinary symptoms. Had cystoscopy one year ago for possible bladder mass on CT scan that was negative for mass. Delirium--appears improved at this time. Hospital records note that she became more confused at night. History of COVID-19--completed isolation and does not appear to be having any symptoms. Patient reports she has had all of the COVID shots including the new monovalent booster this fall. Fall, subsequent encounter--safety precautions in place. PAF (paroxysmal atrial fibrillation) (HCC)--rate controlled with metoprolol succinate 25 mg daily. Continue amiodarone 200 mg daily and Eliquis 2.5 mg twice daily. Rheumatoid arthritis, involving unspecified site, unspecified whether rheumatoid factor present (HCC)--not currently on biologics. Hypertension goal BP (blood pressure) < 140/90--continue metoprolol succinate 25 mg daily. Gastroesophageal reflux disease, unspecified whether esophagitis present--apparently severe. Continue omeprazole 40 mg daily, famotidine 40 mg at bedtime, and metoclopramide 5 mg QID as per her home medications. Stage 3a chronic kidney disease (HCC)--GFR improved to normal range. Moderate episode of recurrent major depressive disorder (HCC)--continue Cymbalta 90 mg daily. Restless legs syndrome--continue Requip 0.25 mg at bedtime. Cognitive changes--monitor Anxiety--continue Cymbalta. Dyslipidemia, goal LDL below 100--continue pravastatin 40 mg daily. Ecchymosis--monitor. Notes pain in that area. Hip x-rays were negative. PLAN: 1. Continue present medication(s): Begin medication(s): Melatonin 5 mg PO QHS PRN insomnia. Discontinue medication(s): Diphenhydramine at bedtime as needed for sleep due to confusion/deliriumand risk of worsening. Schedule labs: CBC w/diff, BMP 2. Admission orders, medications, labs, hospital records and care plan reviewed. 3. Physical Therapy, Occupational Therapy, and Speech Therapy ordered. 4. Care plan reviewed. 5. Advance Directives were discussed: Full Code 6. [facility] Home Treatment Given: n/a Electronically signed by: Maritza Holloway MD I spent a total of 50 minutes coordinating, documenting, and providing care for this patient excluding time spent in the performance of separately billed services or time spent by another provider/QHP. documented in this encounter Plan of Treatment Health Maintenance Due Date Last Done Comments COVID-19 Vaccine (#1) 1940 Depression Screening 1952 Albumin/Creatinine Ratio 1957 CKD PHOS USE SMARTSET 19857 1957 Zoster Vaccines (1 of 2) 1989 DTaP,Tdap,and Td Vaccines (1 - Tdap) 01/04/2002 01/03/2002 Pneumococcal Vaccine: 65+ Years (2 - PCV) 09/05/2008 09/06/2007 GFR 02/18/2011 08/18/2010, 09/06/2007 CKD HGB USE SMARTSET 24108 08/19/201108/18, 09/06/2007 DXA Scan 02/21/2012 02/20/2010, 10/14/2007 COLONOSCOPY-EVERY 3 YRS AGES 18-100 08/07/2013 08/07/2010, 08/01/2009, 07/31/2009 Influenza Vaccine (FLU shot) (#1) 2022 02/24/2011, 03/04/2010, 04/04/2009 VITAMIN D LEVEL ONCE IN A LIFETIME-USE SMARTSET# [id number] Completed 02/24/2011, 08/18/2010, 07/17/2009 GARDASIL-HPV IMMUNIZATION SERIES Aged Out No longer eligible b ased on patient's age to complete this topic Hepatitis B Aged Out No longer eligi ble based on patient's age to complete this topic MENINGOCOCCAL (MENACTRA/MENVEO) Aged Out No longer eligible b ased on patient's age to complete this topic documented as of this encounter Medical Devices Not on filedocumented as of this encounter Visit Diagnoses Diagnosis Urinary tract infection due to extended-spectrum beta lactamase (ESBL)-producing Klebsiella- Primary Urinary tract infection, site not specified Delirium Other alteration of consciousness History of COVID-19 Fall, subsequent encounter PAF (paroxysmal atrial fibrillation) (HCC) Atrial fibrillation Rheumatoid arthritis, involving unspecified site, unspecified whether rheumatoid factor present (HCC) Hypertension goal BP (blood pressure) < 140/90 Unspecified essential hypertension Gastroesophageal reflux disease, unspecified whether esophagitis present Stage 3a chronic kidney disease (HCC) Moderate episode of recurrent major depressive disorder (HCC) Restless legs syndrome Restless legs syndrome (RLS) Cognitive changes Other signs and symptoms involving cognition Anxiety Anxiety state, unspecified Dyslipidemia, goal LDL below 100 Other and unspecified hyperlipidemia Ecchymosis Other specified circulatory system disorders documented in this encounter Care Teams Wooden Box Maker Relationship Specialty Start Date End Date Brendon Prater PA-C PCP - General Physician Orchard Sprayer 01/01/14 documented as of this encounter
--- OUTSIDE RECORDS SUMMARY | 2023-04-02 20:22 | External Medical Summary | Continuity Of Care Document ---
Author Name Unknown Address [address] [place] [address] Organization [facility] ( ) Care Team Providers Care Paraprofessional Aide Teacher Name Role Phone Chandrika Faulkner Primary Care Provider [phone] VITAL SIGNS Date Time Diastolic blood pressure Systolic blood pressure Body height Body weight Temperature SpO2 Blood Sugar Pulse Respirations 77675 213 13156 8 28614 213 24875 9 139 NI 74559 213 32156 1 52 NI 20787 213 15901 8 56 NI 22388 213 13811 3 60 NI 83783 213 93245 7 62 NI 46080 213 56861 8 70.00 mm[Hg] - Sitting 114.00 mm[Hg] - Sitting 62 NI 139.50 NI 98.70 Ear 94.00 % 18.00/min
--- OUTSIDE RECORDS SUMMARY | 2023-04-02 20:22 | External Medical Summary | Continuity Of Care Document ---
Author Name Unknown Address [address] [place] [address] Organization [facility] ( ) Care Team Providers Care Roll Repairer Name Role Phone Chandrika Faulkner Primary Care Provider [phone] VITAL SIGNS Date Time Diastolic blood pressure Systolic blood pressure Body height Body weight Temperature SpO2 Blood Sugar Pulse Respirations 36959 213 23468 8 48165 213 80931 9 139 NI 65535 213 24153 1 52 NI 13065 213 05722 8 56 NI 29230 213 06442 3 60 NI 61173 213 18155 7 62 NI 77278 213 72307 8 70.00 mm[Hg] - Sitting 114.00 mm[Hg] - Sitting 62 NI 139.50 NI 98.70 Ear 94.00 % 18.00/min
--- OUTSIDE RECORDS SUMMARY | 2023-04-02 20:22 | External Medical Summary | Continuity Of Care Document ---
Author Name Unknown Address [address] [place] [address] Organization [facility] ( ) Care Team Providers Care Technician Plant And Maintenance Name Role Phone Lucie Chandrika Primary Care Provider [phone] VITAL SIGNS Date Time Diastolic blood pressure Systolic blood pressure Body height Body weight Temperature SpO2 Blood Sugar Pulse Respirations 37796 213 08687 8 48328 213 70942 9 139 NI 97177 213 43561 1 52 NI 89615 213 61785 8 56 NI 38411 213 25037 3 60 NI 51614 213 48664 7 62 NI 51835 213 30810 8 70.00 mm[Hg] - Sitting 114.00 mm[Hg] - Sitting 62 NI 139.50 NI 98.70 Ear 94.00 % 18.00/min 66662 214 90279 6 70.00 mm[Hg] - Sitting 114.00 mm[Hg] - Sitting 98.70 Ear 76.00/ min 18.00/min 95551 214 75070 1 139.00 NI 97040 214 70044 5 70.00 mm[Hg] - Lying Down 114.00 mm[Hg] - Lying Down 98.70 Ear 76.00/ min 18.00/min 94610 214 37794 5 58.00 mm[Hg] - Sitting 95.00 mm[Hg] - Sitting 97.20 Ear 92.00 % 75.00/ min 62681 215 11743 5 Immunizations Vaccine Date Status COVID-19 05/28/2020 Completed COVID-19 06/18/2020 Completed COVID-19 05/23/2021 Completed COVID-19 11/07/2021 Completed COVID-19 02/09/2023 Completed Influenza 02/09/2023 Completed
--- OUTSIDE RECORDS SUMMARY | 2023-04-02 20:22 | External Medical Summary | Continuity Of Care Document ---
Author Name Unknown Address [address] [place] [address] Organization [facility]) Care Team Providers Care Warehouse Pricing And Inventory Clerk Name Role Phone Chandrika Faulkner Primary Care Provider [phone]
--- OUTSIDE RECORDS SUMMARY | 2023-04-02 20:22 | External Medical Summary | Summary of Care ---
Author Name Unknown Organization [facility] Address [address] [place] [address] Phone [phone] Care Team Providers Care Parts Assembler Name Role Phone Brendon Prater PA-C Primary Care Provider Encounter Details Date Type Department Care Team (Late st Contact Info) Description 03/18/2023 Orders Only Lab Mobile Phlebotomy [facility] [address] [place] [address] Maritza Holloway MD [address] [place] [address] [place] [address] UTI (urinary tract infection)*; Chronic kidney disease (CKD) Allergies Active Allergy Reactions Criticality Noted Date Comments No Known Drug Allergy 09/06/2007 documented as of this encounter (statuses as of 03/18/2023) Medications Medication Sig Dispensed Refills Start Date [...] as of this encounter (statuses as of 03/18/2023) Active Problems Problem Noted Date Diagnosed Date [...] as of this encounter (statuses as of 03/18/2023) Resolved Problems Problem Noted Date Diagnosed Date Resolved Date Meralgia paresthetica 07/17/20092010 Benign neoplasm of colon documented as of this encounter (statuses as of 03/18/2023) Immunizations Name Administration Dates Next Due PPD [...] as of this encounter Plan of Treatment Upcoming Encounters Date Type Department Care Team (Late st Contact Info) Description 03/19/2023 8:10 AM EST Laboratory Lab Mobile Phlebotomy [facility] [address] [facility] [place] [id number] [place] [address] Scheduled Orders Name Type Priority Associated Diagnoses Orde r Schedule CBC WITH WBC DIFFERENTIAL Lab Routine UTI (urinary tract infection) Chronic kidney disease (CKD) Expected: 03/19/2023, Expires: 03/18/2024 BASIC METABOLIC PANEL Lab Routine UTI (urinary tract infection) Chronic kidney disease (CKD) Expected: 03/19/2023, Expires: 03/18/2024 Health Maintenance Due Date Last Done Comments Depression Screening 1952 Albumin/Creatinine Ratio 1957 CKD PHOS USE SMARTSET 06497 1957 Zoster Vaccines (1 of 2) 1989 DTaP,Tdap,and Td Vaccines (1 - Tdap) 01/04/2002 01/03/2002 GFR 02/18/2011 08/18/2010, 09/06/2007 CKD HGB USE SMARTSET 84061 08/19/2011 08/18/2010, DXA Scan 02/21/2012 02/20/2010, 10/14/2007 COLONOSCOPY-EVERY 3 YRS AGES 18-100 08/07/2013 08/07/2010, 08/01/2009, 07/31/2009 Influenza Vaccine (FLU shot) (#1) 2022 04/11/2019, 12/21/2017, 03/16/2017, Additional history exists VITAMIN D LEVEL ONCE IN A LIFETIME-USE SMARTSET# [id number] Completed 02/24/2011, 08/18/2010, 07/17/2009 Pneumococcal Vaccine: 65+ [...] as of this encounter Visit Diagnoses Diagnosis UTI (urinary tract infection)- Primary Urinary tract infection, site not specified Chronic kidney disease (CKD) Chronic kidney disease, unspecified documented in this encounter Care Teams Parts Assembler Relationship Specialty Start Date End Date Brendon Prater PA-C PCP - General Physician Virologist 01/01/14 documented as of this encounter
--- OUTSIDE RECORDS SUMMARY | 2023-04-02 20:22 | External Medical Summary | Summary of Care ---
Author Name Unknown Organization [facility] Address [address] [place] [address] Phone [phone] Care Team Providers Care Chiropractic Neurologist Name Role Phone Brendon Prater PA-C Primary Care Provider Reason for Visit * Reason Onset Date Comments Skilled Visit 03/18/2023 Encounter Details Date Type Department Care Team (Latest Contact Info) Description 03/18/2023 7:30 AM EST Penitentiary Visit [facility] [address] [place] [address] Татьяна Starkey PA-C [address] [place] [address] Urinary tract infection due to ESBL Klebsiella*; History of 2019 novel coronavirus disease (COVID-19); Delirium; Fall, subsequent encounter; PAF (paroxysmal atrial fibrillation) ([facility]); Stage 3a chronic kidney disease ([facility]) Allergies Active Allergy Reactions Criticality Noted Date [...] Albumin/Creatinine Ratio 1957 CKD PHOS USE SMARTSET 82394 1957 Zoster Vaccines (1 of 2) 1989 DTaP,Tdap,and Td Vaccines (1 - Tdap) 01/04/2002 01/03/2002 Pneumococcal Vaccine: 65+ Years (2 - PCV) 09/05/2008 09/06/2007 GFR 02/18/2011 08/18/2010, 09/06/2007 CKD HGB USE SMARTSET 99424 08/19/201108/18, 09/06/2007 DXA Scan 02/21/2012 02/20/2010, 10/14/2007 COLONOSCOPY-EVERY 3 YRS AGES 18-100 08/07/2013 08/07/2010, 08/01/2009, 07/31/2009 Influenza Vaccine (FLU shot) (#1) 2022 02/24/2011, 03/04/2010, 04/04/2009 VITAMIN D LEVEL ONCE IN A LIFETIME-USE SMARTSET# [id number] Completed 02/24/2011, 08/18/2010, 07/17/2009 GARDASIL-HPV IMMUNIZATION SERIES [...] History of 2019 novel coronavirus disease (COVID-19) Delirium Other alteration of consciousness Fall, subsequent encounter PAF (paroxysmal atrial fibrillation) (HCC) Atrial fibrillation Stage 3a chronic kidney disease (HCC) documented in this encounter Care Teams Chiropractic Neurologist Relationship Specialty Start Date End Date Brendon Prater PA-C PCP - General Physician Forming Process Worker 01/01/14 documented as of this encounter
--- OUTSIDE RECORDS SUMMARY | 2023-04-02 20:22 | External Medical Summary | Continuity Of Care Document ---
Author Name Unknown Address [address] [place] [address] Organization [facility]) Care Team Providers Care [employer] Name Role Phone Chandrika Faulkner Primary Care Provider [phone] VITAL SIGNS Date Time Diastolic blood pressure Systolic blood pressure Body height Body weight Temperature SpO2 Blood Sugar Pulse Respirations 39056 213 10384 8 52272 213 29587 9 139 NI 74730 213 52870 1 52 NI 83526 213 04151 8 56 NI 28453 213 38925 3 60 NI 95951 213 25890 7 62 NI 77948 213 20618 8 70.00 mm[Hg] - Sitting 114.00 mm[Hg] - Sitting 62 NI 139.50 NI 98.70 Ear 94.00 % 18.00/min 06950 214 02966 6 70.00 mm[Hg] - Sitting 114.00 mm[Hg] - Sitting 98.70 Ear 76.00/ min 18.00/min 76781 214 97390 1 139.00 NI Immunizations Vaccine Date Status COVID-19 05/28/2020 Completed COVID-19 06/18/2020 Completed COVID-19 05/23/2021 Completed COVID-19 11/07/2021 Completed COVID-19 02/09/2023 Completed Influenza 02/09/2023 Completed
--- NOTE | 2023-04-02 20:55 | History & Physical Report ---
Date of Service April 02, 2023 Assessment & Plan (1) Recurrent UTI: Plan: -Admit to med/surge -Currently stable and non-toxic appearing -Patient was recently admitted to [facility] due to Enterococcus faecium VRE UTI -Was evaluated by ID and received a 5 day course of Ertapenem -Patient back with recurrent UTI symptoms and UA concerning for recurrent UTI -Will be receiving a dose of Daptomycin and Ertapenem in the ED after discussions with Pharmacy -For now we will continue Ertapenem and Daptomycin until urine cultures are final -ID consult placed; was unable to call for consult request due to the time of the admission -Will hold statin while on Daptomycin -Continue home Eliquis for DVT PPX -HH diet; 2gm sodium restriction -AM CBC, BMP, mag, PT/INR (2) Hx of delirium: Plan: -Patient experiencing hospital acquired delirium last admission and had a fall trying to get out of bed -Currently completely alert and oriented -Will place fall precautions and bed alarm (3) PAF (paroxysmal atrial fibrillation): Plan: -Currently in rate controlled afib -Continue Eliquis -Continue amiodarone and metoprolol (4) Hypertension: Plan: -Stable -Continue metoprolol (5) Anxiety: Plan: -Continue Duloxetine (6) Restless leg: Plan: -Continue requip Plan The patient was discussed with Dr. Mack at the time of the admission History of Present Illness Chief Complaint: Concern for recurrent UTI Primary Care Provider: DO Brionna Perdomo is a 82 y/o female with PMH of HTN, Diastolic disfunction , LVH, GERD, depression, lumbar spinal stenosis, Paroxysmal atrial fibrillation, CDK stage 3, anemia, osteoporosis, rheumatoid arthritis and vitamin D deficiency and recurrent UTI's who presented to the [facility] ED on 04/02 due to concerns for another UTI. She remained stable while in the ED. Labs were significant for an MCV of 102, and UA concerning for recurrent UTI. The patient was recently admitted to [facility] from 03/01-03/17 due to Enterococcus faecium VRE UTI. She was evaluated by infectious disease who recommended completing a 5 day course of Ertapenem. Her admission was complicated by hospital acquired delirium and metabolic encephalopathy from her UTI. Her mental status improved after being started on Ertapenem. Prior to admission the patient was ordered 1gm IV tylenol, and a dose of ertapenem and daptomycin per Pharmacy's recommendations. At the time of the exam the patient was evaluated in the [place] area due to significantly high census. History was obtained from the patient and her daughter. They state that she started to develop increased urinary frequency and dysuria yesterday. These are the same symptoms she experienced with her previous UTI's. At this time her only complaints are low back pain from sitting in a wheelchair for multiple hours. She had her am medications but has not had her evening ones. No other complaints at this time. She is a conditional code; she states that in the event of cardiac arrest she would want CPR and defibrillation up until the point that she would require intubation. If she would require intubation she would want CPR to be discontinued. She would not intubation in the event of respiratory failure. Please refer to Dr. Black's attestation for any changes to the treatment plan Allergies Allergy/AdvReac Type Severity Reaction Status Date / Time tramadol Allergy ITCHY Verified 04/02/23 21:36 Home Medications Medication Instructions Recorded Confirmed Type kvekmevg-vst-iezyp acid 0.4 1 tab PO DAILY 09/10/20 04/02/23 History mg-lycopene 300 mcg-lutein 250 mcg tablet (Centrum Silver) diphenhydramine 25 1 tab PO HS PRN Pain 08/06/21 04/02/23 History mg-acetaminophen 500 mg tablet (Tylenol PM Extra Strength) vitamins A,C,Z-owmh-maqyor 4,296 1 cap PO BID 08/06/21 04/02/23 History mcg-226 mg-90 mg capsule (PreserVision AREDS) magnesium oxide 400 mg (241.3 mg 400 mg PO BID #180 tabs 02/19/22 04/02/23 Rx magnesium) tablet metoprolol succinate 25 mg 25 mg PO QAM #90 tabs 06/05/22 04/02/23 Rx tablet,extended release 24 hr ferrous sulfate 325 mg (65 mg 325 mg PO DAILY #90 tabs 10/08/22 04/02/23 Rx iron) tablet (Iron (ferrous sulfate)) ropinirole 0.25 mg tablet 0.25 mg PO HS #90 tabs 11/16/22 04/02/23 Rx apixaban 2.5 mg tablet (Eliquis) 2.5 mg PO BID #60 tabs 01/25/23 04/02/23 Rx duloxetine 60 mg capsule,delayed 60 mg PO QAM #90 caps 02/01/23 04/02/23 Rx release omeprazole 40 mg capsule,delayed 40 mg PO QAM #90 caps 02/03/23 04/02/23 Rx release pravastatin 40 mg tablet 40 mg PO DAILY #90 tabs 02/10/23 04/02/23 Rx famotidine 40 mg tablet 40 mg PO HS #90 tabs 02/23/23 04/02/23 Rx amiodarone 200 mg tablet 200 mg PO QAM 03/01/23 04/02/23 History diclofenac sodium 1.5 % topical 1 drp topical UD 03/01/23 04/02/23 History drops duloxetine 30 mg capsule,delayed 30 mg PO QPM 03/01/23 04/02/23 History release acetaminophen 500 mg tablet 500 mg PO Q6H PRN Pain 04/02/23 04/02/23 History (Tylenol Extra Strength) metoclopramide HCl 5 mg tablet 5 mg PO ACHS 04/02/23 04/02/23 History Past Med/Surg History Medical History Closed rib fracture (~03/06/22) Urinary incontinence Pleural effusion, bilateral (01/2022) Venous insufficiency of both lower extremities Fracture, tibia and fibula, proximal Hematoma of right lower extremity Fracture of greater trochanter of right femur Fall Closed hip fracture (~06/09/21) Chronic anticoagulation Hypercholesterolemia PAF (paroxysmal atrial fibrillation) Diastolic dysfunction LVH (left ventricular hypertrophy) Grief Depression Diaphragmatic hernia Lumbar spinal stenosis Vitamin D deficiency Osteoporosis GERD without esophagitis Diverticulosis Disc degeneration, lumbar Cystic thyroid nodule Chronic kidney disease, stage III (moderate) Anxiety Mitral regurgitation Rheumatoid arthritis Osteoarthritis Macular degeneration Hypertension Scoliosis Anemia Surgical History Status post Adilia fundoplication (01/2022) History of repair of hiatal hernia (01/2022) S/P ORIF (open reduction internal fixation) fracture (~03/2021) Knee arthropathy (10/2017) S/P thyroid surgery (01/2019) Status post arthroscopic partial medial meniscectomy (11/02/17) H/O bilateral oophorectomy (04/2017) History of hysterectomy (1988) History of total hip arthroplasty History of tooth extraction History of tonsillectomy History of adenoidectomy History of cataract surgery Family History Father Coronary heart disease Colorectal cancer Kidney disease Lung disease Mother Coronary heart disease Myocardial infarction Gallbladder disease Sister Diabetes Colorectal cancer Family/Other Diabetes Denies family history of Ovarian cancer Prostate cancer Breast cancer Social History Smoking Status: Never smoker Second Hand Exposure: Yes; Do You Dip or Chew Tobacco: No; Hx Alcohol Use: No Hx Substance Use: No Preferred Language: Luxembourgish Communication Ability: Effective Visual Impairment: No Limitations Hearing Ability: Use of Hearing Aid Catcher Filter Tip Required: No Beliefs That Will Affect Care: None marital status: / marital status details: passed August 2018 Current Living Situation: Family Current Living Situation Comment: WITH DAUGHTER current occupational status: retired current occupation: [employer] How many Children do You have: 2 Feels Safe at Home: Yes Safety Concerns: Feels Safe At This Time Childhood Exposure to Second-Hand Smoke: No Diet Comment: regular caffeine: Yes (1/2 cup a day) during the past year weight has: decreased > 10 lbs Dental Care, Regularly: Yes Physical Activity Frequency: Daily Seatbelt Use: always Sunscreen Use: No Assistive Devices: Walker and Wheelchair Physical Exam Physical Exam: Physical Exam: General: In no acute distress, stated age, well-nourished, good hygiene HEENT: Normocephalic, atraumatic, no scleral icterus, pupils around round, symmetrical, and reactive to light, moist mucus membranes, trachea midline, no thyromegaly Chest/Pulm: No respiratory distress, symmetrical chest expansion, clear breath sounds throughout Cardiac: irregular rate and rhythm, 2/6 systolic murmur noted Abdomen: Negative for ascites and bruising, normoactive bowel sounds, soft, non-tender to palpation throughout Musculoskeletal: Symmetrical and without signs of acute trauma, upper and lower extremities with full ROM, no atrophy, spasticity, or flaccidity Extremities: Radial, dorsalis pedis, and posterior tibial pulses are intact and symmetrical, no edema noted in the BL LE's Skin: Warm, dry, no rashes , lesions, or scars noted Neuro: Alert and oriented to person, place, month, year, and president, no focal defects,no tremors noted Psych: No acute distress, calm and cooperative during the exam Results & Data Results & Data Vital Signs (Past 12 Hours) Vital Signs Temp Pulse Resp BP Pulse Ox O2 Del Method 04/02/23 13:07 37.1 C 82 20 145/71 H 95 Room Air Laboratory Results Abnormal lab results 04/02/23 Range/Units 15:00 RBC 3.75 L (4.20-5.40) M/uL MCV 102.7 H (80.0-100.0) fL MCHC 31.7 L (32.0-36.0) g/dL RDW Std Deviation 55.7 H (36.4-46.3) fL RDW Coeff of Tyra 14.7 H (11.5-14.5) % MPV 9.0 L (9.4-12.4) fL Dawson # (Auto) 0.68 H (0.11-0.59) K/uL Urine Appearance Turbid A (Clear) Urine Protein Trace H (Negative) Urine Ketones Trace H (Negative) Urine Blood Trace H (Negative) Ur Leukocyte Esterase 3+ H (Negative) Urine WBC (Auto) >30 H (0-5) /hpf Urine RBC (Auto) 10-30 H (0-4) /hpf U Epithel Cells (Auto) 10-20 H (0-5) /lpf Urine Bacteria (Auto) 4+ H (Negative) Diagnostic Findings Abdomen/Pelvis CT 04/02/23 19:12 Exam(s): CT ABDOMEN + PELVIS Without Contrast EXAM: CT Abdomen and Pelvis Without Intravenous Contrast CLINICAL HISTORY: Reason for exam: lower abd pain to back, uti. TECHNIQUE: Axial computed tomography images of the abdomen and pelvis without intravenous contrast. CTDI is 22.2 mGy and DLP is 1009.1 mGy-cm. Automated exposure control was utilized for the study. A dose lowering technique was utilized adhering to the principles of ALARA. COMPARISON: 02/18/19 FINDINGS: Lung bases: Mild bibasilar atelectasis. Pleural space: Small pleural effusions. Heart: Low-attenuation of the cardiac blood pool suggesting anemia. Mediastinum: Small sliding-type hiatal hernia. ABDOMEN: Liver: Unremarkable. Gallbladder and bile ducts: Cholelithiasis without evidence of acute cholecystitis or biliary dilatation. Pancreas: Unremarkable. No ductal dilation. Spleen: Unremarkable. No splenomegaly. Adrenals: Unremarkable adrenal glands. Kidneys and ureters: Unremarkable. No hydronephrosis or radiopaque stones. Stomach and bowel: Sigmoid diverticulosis without diverticulitis. No bowel obstruction. PELVIS: Appendix: Normal appendix. Bladder: Unremarkable. No stones. Normal urinary bladder. Reproductive: Hysterectomy. ABDOMEN and PELVIS: Intraperitoneal space: Unremarkable. No free air. No significant fluid collection. Bones/joints: Advanced lumbar scoliosis and spondylosis. No acute fracture or dislocation. Prior ORIF left femur. Right total hip arthroplasty. Soft tissues: Mild anasarca. Vasculature: Unremarkable. No abdominal aortic aneurysm. Lymph nodes: Unremarkable. No enlarged lymph nodes. IMPRESSION: No CT evidence of acute intra-abdominal process. Electronically signed by: Martín Roque M.D. 04/02/23 21:09 PM Code Status & VTE Plan Code Status Conditional; she states that in the event of cardiac arrest she would want CPR and defibrillation up until the point that she would require intubation. If she would require intubation she would want CPR to be discontinued. She would not intubation in the event of respiratory failure. VTE Prophylaxis Plan VTE Prophylaxis will be ordered: Yes Supervising Physician Co-Signing Physician Notes Patient seen and examined, chart reviewed, case discussed with JUANITA Poole and I agree with the assessment and plan as above. In brief, patient is an 83yo female with history of recurrent UTIs - Enterococcus faecium and VRE. Previously treated with 5 days of Ertapenem ret urning with UTI symptoms Afebrile, HD stable and non-toxic in appearance Some suprapubic discomfort Labs and images reviewed Assessment/Plan Daptomycin and Ertapenem for now ID consultation Remainder as above PG Care Time/CCT Total # of Minutes Spent Total Time Spent with Patient: Total time spent is greater than 50% in coordination of care (as documented) at patient's floor/unit and/or counseling patient: Coding [place] [address] INT INP/OBS CARE 3/75MIN Patient Type Established Medical Decision Making High Complexity Diagnoses Recurrent UTI N39.0 Hx of delirium Z87.898 PAF (paroxysmal atrial fibrillation) I48.0 Hypertension I10 Anxiety F41.9 Restless leg G25.81
[2023-04-02] MEDS ORDERED: LACTATED RINGER'S 500 ML IV ONE (21:06)
--- NOTE | 2023-04-02 21:09 | CT Scan Report ---
Exam(s): CT ABDOMEN + PELVIS Without Contrast EXAM: CT Abdomen and Pelvis Without Intravenous Contrast CLINICAL HISTORY: Reason for exam: lower abd pain to back, uti. TECHNIQUE: Axial computed tomography images of the abdomen and pelvis without intravenous contrast. CTDI is 22.2 mGy and DLP is 1009.1 mGy-cm. Automated exposure control was utilized for the study. A dose lowering technique was utilized adhering to the principles of ALARA. COMPARISON: 02/18/19 FINDINGS: Lung bases: Mild bibasilar atelectasis. Pleural space: Small pleural effusions. Heart: Low-attenuation of the cardiac blood pool suggesting anemia. Mediastinum: Small sliding-type hiatal hernia. ABDOMEN: Liver: Unremarkable. Gallbladder and bile ducts: Cholelithiasis without evidence of acute cholecystitis or biliary dilatation. Pancreas: Unremarkable. No ductal dilation. Spleen: Unremarkable. No splenomegaly. Adrenals: Unremarkable adrenal glands. Kidneys and ureters: Unremarkable. No hydronephrosis or radiopaque stones. Stomach and bowel: Sigmoid diverticulosis without diverticulitis. No bowel obstruction. PELVIS: Appendix: Normal appendix. Bladder: Unremarkable. No stones. Normal urinary bladder. Reproductive: Hysterectomy. ABDOMEN and PELVIS: Intraperitoneal space: Unremarkable. No free air. No significant fluid collection. Bones/joints: Advanced lumbar scoliosis and spondylosis. No acute fracture or dislocation. Prior ORIF left femur. Right total hip arthroplasty. Soft tissues: Mild anasarca. Vasculature: Unremarkable. No abdominal aortic aneurysm. Lymph nodes: Unremarkable. No enlarged lymph nodes. IMPRESSION: No CT evidence of acute intra-abdominal process. Electronically signed by: Martín Roque M.D. 04/02/23 21:09 PM
[2023-04-02] MEDS ORDERED: APIXABAN 2.5 MG TAB PO STA (21:23)
[2023-04-02] MEDS ORDERED: ERTAPENEM 1 GM ONE (21:54)
[2023-04-02] MEDS ORDERED: MELATONIN 3 MG TAB PO STA (23:42)
[2023-04-03] MEDS: METOCLOPRAMIDE HCL 5 MG TABLET PO SCH ×4 (08:29→20:59)
[2023-04-03] MEDS: DULoxetine HCL 60 MG CAP PO SCH (08:29)
[2023-04-03] MEDS: PANTOprazole 40 MG TAB PO SCH (08:29)
[2023-04-03] MEDS: METOPROLOL SUCC 25MG EXT REL TAB PO SCH (08:29)
[2023-04-03] MEDS: AMIODARONE 200 MG TAB PO SCH (08:29)
[2023-04-03] MEDS: APIXABAN 2.5 MG TAB PO SCH ×2 (08:30→21:00)
[2023-04-03] MEDS: ACETAMINOPHEN 500 MG TAB PO PRN ×2 (08:35→21:02)
[2023-04-03 08:48] LABS: Basophils # (auto) 0.05 K/uL (0.00-0.20); Basophils % (auto) 0.7 %; Eosinophils # (auto) 0.17 K/uL (0.00-0.50); Eosinophils % (auto) 2.4 %; Hemoglobin 10.9 g/dl (12.0-16.0); Immature Granulocytes # (auto) 0.03 K/uL (0.01-0.20); Immature Granulocytes % (auto) 0.4 %; Lymphocytes # (auto) 1.43 K/uL (1.20-3.40); Mean Corpuscular Hemoglobin 32.3 pg (25.0-34.0); Mean Corpuscular Hgb Conc 32.1 g/dL (32.0-36.0); Mean Corpuscular Volume 100.9 fL (80.0-100.0); Mean Platelet Volume 9.1 fL (9.4-12.4); Monocytes % (auto) 11.2 %; Neutrophils # (auto) 4.67 K/uL (1.40-6.50); Neutrophils % (auto) 65.3 %; Platelet Count 231 K/uL (130-400); RDW Standard Deviation 55.9 fL (36.4-46.3); Red Blood Count 3.37 M/uL (4.20-5.40); White Blood Count 7.15 K/ul (4.8-10.8)
[2023-04-03 09:11] LABS: Albumin Globulin Ratio 1.3 (0.9-2); Albumin Level 3.4 gm/dl (3.4-5.0); BUN Creatinine Ratio 15.3 (10-20); Bilirubin,Total 0.5 mg/dl (0.2-1.0); Calcium 8.9 mg/dl (8.6-10.3); Creatinine Clr Calc Pharmacy 43.5 ml/min; Est GFR (African American) 72.9 ml/min; Est GFR (Non-African American) 62.9 ml/min; Globulin 2.6 gm/dl (2.5-4.0); Magnesium 2.2 mg/dl (1.7-2.4); Potassium 4.5 mmol/L (3.5-5.1)
[2023-04-03 09:18] LABS: Prothrombin Time 11.4 Seconds (9.0-12.0)
--- NOTE | 2023-04-03 18:25 | Hospitalist Progress Note ---
Date of Service April 03, 2023 Assessment & Plan (1) Recurrent UTI: Plan: -Admit to med/surge -Currently stable and non-toxic appearing -Patient was recently admitted to [facility] due to Enterococcus faecium VRE UTI -Was evaluated by ID and received a 5 day course of Ertapenem -Patient back with recurrent UTI symptoms and UA concerning for recurrent UTI -Will be receiving a dose of Daptomycin and Ertapenem in the ED after discussions with Pharmacy -For now we will continue Ertapenem and Daptomycin until urine cultures are final -ID consult placed; was unable to call for consult request due to the time of the admission -Will hold statin while on Daptomycin -Continue home Eliquis for DVT PPX -HH diet; 2gm sodium restriction -AM CBC, BMP, mag, PT/INR awaiting cultures (2) Hx of delirium: Plan: -Patient experiencing hospital acquired delirium last admission and had a fall trying to get out of bed -Currently completely alert and oriented -Will place fall precautions and bed alarm (3) PAF (paroxysmal atrial fibrillation): Plan: -Currently in rate controlled afib -Continue Eliquis -Continue amiodarone and metoprolol (4) Hypertension: Plan: -Stable -Continue metoprolol (5) Anxiety: Plan: -Continue Duloxetine (6) Restless leg: Plan: -Continue requip Plan Admission and Anticipated Discharge Date Admission Date: April 02, 2023 Subjective Patient resting, no new complaints Review of Systems Review of Systems: All systems reviewed & are unremarkable except as noted in HPI & below Physical Exam Physical Exam: General: In no acute distress, stated age, well-nourished, good hygiene HEENT: Normocephalic, atraumatic Chest/Pulm: No respiratory distress, symmetrical chest expansion, clear breath sounds throughout Cardiac: irregular rate and rhythm, 2/6 systolic murmur noted Abdomen: Negative for ascites and bruising, normoactive bowel sounds, soft, non-tender to palpation throughout Results & Data Results & Data Vital Signs (Past 12 Hours) Vital Signs Temp Pulse Pulse Resp BP BP Pulse Ox 04/03/23 14:25 36.8 C 71 16 102/59 L 96 04/03/23 08:20 04/03/23 07:02 36.8 C 67 18 117/67 96 O2 Del Method 04/03/23 14:25 Room Air 04/03/23 08:20 Room Air 04/03/23 07:02 Room Air PG Care Time/CCT Total # of Minutes Spent Total Time Spent with Patient: Total time spent is greater than 50% in coordination of care (as documented) at patient's floor/unit and/or counseling patient: Coding Level of Care Code 19607 SUB INP/OBS CARE 2/35MIN Diagnoses Recurrent UTI N39.0 Hx of delirium Z87.898 PAF (paroxysmal atrial fibrillation) I48.0 Hypertension I10 Anxiety F41.9 Restless leg G25.81
[2023-04-03] MEDS: FAMOTIDINE 40 MG TABLET PO SCH (20:59)
[2023-04-03] MEDS: ERTAPENEM SODIUM 1,000 MG in SYRINGE 0 ML IV SCH (20:59)
[2023-04-03] MEDS: DULoxetine HCL 30 MG CAP PO SCH (20:59)
[2023-04-03] MEDS: rOPINIRole HCL 0.25 MG TABLET PO SCH (20:59)
[2023-04-03] MEDS ORDERED: DAPTOmycin 400 MG in SYRINGE 0 ML IV SCH (22:00)
[2023-04-04] MEDS: AMIODARONE 200 MG TAB PO SCH (07:58)
[2023-04-04] MEDS: ACETAMINOPHEN 500 MG TAB PO PRN ×2 (07:58→23:07)
[2023-04-04] MEDS: PANTOprazole 40 MG TAB PO SCH (07:58)
[2023-04-04] MEDS: METOPROLOL SUCC 25MG EXT REL TAB PO SCH (07:58)
[2023-04-04] MEDS: METOCLOPRAMIDE HCL 5 MG TABLET PO SCH ×4 (07:58→21:27)
[2023-04-04] MEDS: APIXABAN 2.5 MG TAB PO SCH ×2 (07:59→21:27)
[2023-04-04] MEDS: DULoxetine HCL 60 MG CAP PO SCH (07:59)
[2023-04-04 08:17] LABS: Basophils # (auto) 0.04 K/uL (0.00-0.20); Basophils % (auto) 0.7 %; Eosinophils # (auto) 0.19 K/uL (0.00-0.50); Eosinophils % (auto) 3.2 %; Hematocrit (blood only) 32.3 % (37.0-47.0); Hemoglobin 10.5 g/dl (12.0-16.0); Immature Granulocytes # (auto) 0.02 K/uL (0.01-0.20); Immature Granulocytes % (auto) 0.3 %; Lymphocytes # (auto) 1.46 K/uL (1.20-3.40); Lymphocytes % (auto) 24.7 %; Mean Corpuscular Hemoglobin 32.6 pg (25.0-34.0); Mean Corpuscular Hgb Conc 32.5 g/dL (32.0-36.0); Mean Corpuscular Volume 100.3 fL (80.0-100.0); Mean Platelet Volume 9.1 fL (9.4-12.4); Monocytes # (auto) 0.73 K/uL (0.11-0.59); Monocytes % (auto) 12.4 %; Neutrophils # (auto) 3.46 K/uL (1.40-6.50); Neutrophils % (auto) 58.7 %; Platelet Count 213 K/uL (130-400); RDW Coefficient of Variation 14.9 % (11.5-14.5); RDW Standard Deviation 55.5 fL (36.4-46.3); Red Blood Count 3.22 M/uL (4.20-5.40)
[2023-04-04 08:33] LABS: Albumin Globulin Ratio 1.3 (0.9-2); Albumin Level 3.2 gm/dl (3.4-5.0); BUN Creatinine Ratio 14.4 (10-20); Bilirubin,Total 0.5 mg/dl (0.2-1.0); Calcium 8.4 mg/dl (8.6-10.3); Creatinine Clr Calc Pharmacy 41.1 ml/min; Est GFR (African American) 68.1 ml/min; Est GFR (Non-African American) 58.7 ml/min; Globulin 2.5 gm/dl (2.5-4.0); Potassium 4.5 mmol/L (3.5-5.1); Total Protein 5.7 gm/dl (6.0-8.3)
[2023-04-04 08:49] LABS: Prothrombin Time 11.4 Seconds (9.0-12.0)
--- NOTE | 2023-04-04 09:53 | Hospitalist Progress Note ---
Date of Service April 04, 2023 Assessment & Plan (1) Recurrent UTI: Plan: -Admit to med/surge -Currently stable and non-toxic appearing -Patient was recently admitted to [facility] due to Enterococcus faecium VRE UTI -Was evaluated by ID and received a 5 day course of Ertapenem -Patient back with recurrent UTI symptoms and UA concerning for recurrent UTI -Initially on Daptomycin and Ertapenem in the ED after discussions with Pharmacy -Cultures showed Klebsiella aerogenes: sensitive to carbapenems. will continue ertapenem and hold daptomycin. Will place on vaginal estrogen on 04/04 to help prevent estrogen. -ID consult placed; was unable to call for consult request due to the time of the admission -Will hold statin while on Daptomycin , will consider restarting on 04/05/23 -Continue home Eliquis for DVT PPX -HH diet; 2gm sodium restriction -AM CBC, BMP, mag, PT/INR (2) Hx of delirium: Plan: -Patient experiencing hospital acquired delirium last admission and had a fall trying to get out of bed -Currently completely alert and oriented -Will place fall precautions and bed alarm (3) PAF (paroxysmal atrial fibrillation): Plan: -Currently in rate controlled afib -Continue Eliquis -Continue amiodarone and metoprolol (4) Hypertension: Plan: -Stable -Continue metoprolol (5) Anxiety: Plan: -Continue Duloxetine (6) Restless leg: Plan: -Continue requip Admission and Anticipated Discharge Date Admission Date: April 02, 2023 Subjective 83 yo female reports no new symptoms. She reports having recurrent symptoms of dysuria and incontinence. This came back last weekend.She reports adequate hygiene with up down wiping. Review of Systems Review of Systems: All systems reviewed & are unremarkable except as noted in HPI & below Physical Exam Physical Exam: General: In no acute distress, stated age, well-nourished, good hygiene HEENT: Normocephalic, atraumatic Chest/Pulm: No respiratory distress, symmetrical chest expansion, clear breath sounds throughout Cardiac: irregular rate and rhythm, 2/6 systolic murmur noted Abdomen: Negative for ascites and bruising, normoactive bowel sounds, soft, non-tender to palpation throughout Results & Data Results & Data Vital Signs (Past 12 Hours) Vital Signs Temp Pulse Resp BP Pulse Ox O2 Del Method 12/31/23 08:01 37 C 69 16 145/71 H 93 Room Air 04/04/23 07:58 36.9 C 67 16 166/77 H 96 Room Air PG Care Time/CCT Total # of Minutes Spent Total Time Spent with Patient: Total time spent is greater than 50% in coordination of care (as documented) at patient's floor/unit and/or counseling patient: Coding Level of Care Code 59793 SUB INP/OBS CARE 2/35MIN Diagnoses Recurrent UTI N39.0 Hx of delirium Z87.898 PAF (paroxysmal atrial fibrillation) I48.0 Hypertension I10 Anxiety F41.9 Restless leg G25.81
[2023-04-04] MEDS: PREMARIN VAG CRM 14 APPLN/30 GM TUBE PV SCH (11:29)
[2023-04-04] MEDS: ERTAPENEM SODIUM 1,000 MG in SYRINGE 0 ML IV SCH (21:27)
[2023-04-04] MEDS: rOPINIRole HCL 0.25 MG TABLET PO SCH (21:27)
[2023-04-04] MEDS: FAMOTIDINE 40 MG TABLET PO SCH (21:27)
[2023-04-04] MEDS: DULoxetine HCL 30 MG CAP PO SCH (21:27)
[2023-04-05 06:34] LABS: Basophils # (auto) 0.05 K/uL (0.00-0.20); Basophils % (auto) 0.8 %; Eosinophils % (auto) 3.2 %; Hematocrit (blood only) 32.6 % (37.0-47.0); Hemoglobin 10.6 g/dl (12.0-16.0); Immature Granulocytes # (auto) 0.01 K/uL (0.01-0.20); Immature Granulocytes % (auto) 0.2 %; Lymphocytes # (auto) 1.45 K/uL (1.20-3.40); Lymphocytes % (auto) 23.2 %; Mean Corpuscular Hemoglobin 32.4 pg (25.0-34.0); Mean Corpuscular Hgb Conc 32.5 g/dL (32.0-36.0); Mean Corpuscular Volume 99.7 fL (80.0-100.0); Monocytes # (auto) 0.72 K/uL (0.11-0.59); Monocytes % (auto) 11.5 %; Neutrophils # (auto) 3.82 K/uL (1.40-6.50); Neutrophils % (auto) 61.1 %; Platelet Count 202 K/uL (130-400); RDW Coefficient of Variation 14.8 % (11.5-14.5); RDW Standard Deviation 54.9 fL (36.4-46.3); Red Blood Count 3.27 M/uL (4.20-5.40); White Blood Count 6.25 K/ul (4.8-10.8)
[2023-04-05 07:07] LABS: Albumin Globulin Ratio 1.3 (0.9-2); Albumin Level 3.1 gm/dl (3.4-5.0); BUN Creatinine Ratio 13.9 (10-20); Bilirubin,Total 0.5 mg/dl (0.2-1.0); Calcium 8.3 mg/dl (8.6-10.3); Creatinine Clr Calc Pharmacy 36.6 ml/min; Est GFR (African American) 59.2 ml/min; Est GFR (Non-African American) 51.1 ml/min; Globulin 2.4 gm/dl (2.5-4.0); Potassium 4.3 mmol/L (3.5-5.1); Total Protein 5.5 gm/dl (6.0-8.3)
[2023-04-05 07:16] LABS: INR 1.1 (0.9-1.1); Prothrombin Time 11.8 Seconds (9.0-12.0)
[2023-04-05] MEDS: AMIODARONE 200 MG TAB PO SCH (09:06)
[2023-04-05] MEDS: METOPROLOL SUCC 25MG EXT REL TAB PO SCH (09:07)
[2023-04-05] MEDS: PANTOprazole 40 MG TAB PO SCH (09:07)
[2023-04-05] MEDS: APIXABAN 2.5 MG TAB PO SCH ×2 (09:07→19:33)
[2023-04-05] MEDS: METOCLOPRAMIDE HCL 5 MG TABLET PO SCH ×4 (09:08→19:33)
[2023-04-05] MEDS: DULoxetine HCL 60 MG CAP PO SCH (09:08)
[2023-04-05] MEDS: PREMARIN VAG CRM 14 APPLN/30 GM TUBE PV SCH (09:08)
[2023-04-05] MEDS: PRAVASTATIN SOD 40 MG TAB PO SCH (12:15)
--- NOTE | 2023-04-05 12:17 | Hospitalist Progress Note ---
Date of Service April 05, 2023 Assessment & Plan (1) Recurrent UTI: Plan: -Patient was recently admitted (03/01) to [facility] due to Enterococcus faecium VRE UTI --> evaluated by ID and received a 5 day course of Ertapenem -Patient back with recurrent UTI symptoms, UC with Klebsiella Aerogenes, sensitive to carbapenems -Started on Daptomycin and Ertapenem in the ED after discussions with Pharmacy - Will continue ertapenem and stop daptomycin. Plan for 7 days of abx, last day 04/08/2023 - Pravastatin restarted after d/c daptomycin -ID consult placed; was unable to call for consult request due to the time of the admission -Started on vaginal estrogen on 04/04 for UTI prevention --> should decrease to twice weekly after using daily for two weeks -Continue home Eliquis for DVT PPX -PT/OT (2) Hx of delirium: Plan: -Patient experiencing hospital acquired delirium last admission and had a fall trying to get out of bed -Currently completely alert and oriented -Continue fall precautions and bed alarm (3) PAF (paroxysmal atrial fibrillation): Plan: -Currently in rate controlled afib -Continue Eliquis -Continue amiodarone and metoprolol (4) Hypertension: Plan: -Stable -Continue metoprolol (5) Anxiety: Plan: -Continue Duloxetine (6) Restless leg: Plan: -Continue requip Plan Dispo: continued inpatient stay Daughter, Zahida, updated by telephone. Admission and Anticipated Discharge Date Admission Date: April 02, 2023 Subjective 1140 - Patient seen lying in bed, resting. Denies urinary symptoms. Reports that she feels weak when going to the bathroom, using a walker but at home she gets around with a wheelchair. Is not interested in going back to [facility]. Reports good appeitite and had a bowel movement. Denies CP or SOB. Review of Systems Review of Systems: All systems reviewed & are unremarkable except as noted in Subjective Physical Exam Physical Exam: General: WN/WD, NAD, VS as above Resp: normal respiratory effort, lungs clear to auscultation CV: RRR, no murmur, Abd: normal bowel sounds, non tender, no hepatosplenomegaly Extremities: Moves all extremities, no edema Neuro: A&O x3, Results & Data Results & Data Vital Signs (Past 12 Hours) Vital Signs Temp Pulse Resp BP Pulse Ox O2 Del Method 04/05/23 11:06 Room Air 04/05/23 08:32 36.6 C 69 16 118/70 93 Room Air Laboratory Results CBC and chemistry reviewed PG Care Time/CCT Total # of Minutes Spent Total Time Spent with Patient: Total time spent is greater than 50% in coordination of care (as documented) at patient's floor/unit and/or counseling patient: Coding Level of Care Code 12514 SUB INP/OBS CARE 2/35MIN Diagnoses Recurrent UTI N39.0 Hx of delirium Z87.898 PAF (paroxysmal atrial fibrillation) I48.0 Hypertension I10 Anxiety F41.9 Restless leg G25.81
[2023-04-05] MEDS: ACETAMINOPHEN 500 MG TAB PO PRN (19:33)
[2023-04-05] MEDS: DULoxetine HCL 30 MG CAP PO SCH (19:33)
[2023-04-05] MEDS: rOPINIRole HCL 0.25 MG TABLET PO SCH (19:33)
[2023-04-05] MEDS: FAMOTIDINE 40 MG TABLET PO SCH (19:33)
[2023-04-05] MEDS: ERTAPENEM SODIUM 1,000 MG in SYRINGE 0 ML IV SCH (19:33)
[2023-04-06] MEDS: ACETAMINOPHEN 500 MG TAB PO PRN ×3 (05:08→20:05)
[2023-04-06 05:51] LABS: Basophils # (auto) 0.04 K/uL (0.00-0.20); Basophils % (auto) 0.7 %; Eosinophils # (auto) 0.21 K/uL (0.00-0.50); Eosinophils % (auto) 3.7 %; Hematocrit (blood only) 31.6 % (37.0-47.0); Hemoglobin 10.6 g/dl (12.0-16.0); Immature Granulocytes # (auto) 0.02 K/uL (0.01-0.20); Immature Granulocytes % (auto) 0.4 %; Lymphocytes # (auto) 1.47 K/uL (1.20-3.40); Mean Corpuscular Hemoglobin 33.1 pg (25.0-34.0); Mean Corpuscular Hgb Conc 33.5 g/dL (32.0-36.0); Mean Corpuscular Volume 98.8 fL (80.0-100.0); Monocytes # (auto) 0.66 K/uL (0.11-0.59); Monocytes % (auto) 11.7 %; Neutrophils # (auto) 3.26 K/uL (1.40-6.50); Neutrophils % (auto) 57.5 %; Platelet Count 205 K/uL (130-400); RDW Coefficient of Variation 14.5 % (11.5-14.5); RDW Standard Deviation 52.6 fL (36.4-46.3); White Blood Count 5.66 K/ul (4.8-10.8)
[2023-04-06 06:06] LABS: Albumin Globulin Ratio 1.3 (0.9-2); Albumin Level 3.1 gm/dl (3.4-5.0); BUN Creatinine Ratio 14.7 (10-20); Bilirubin,Total 0.5 mg/dl (0.2-1.0); Calcium 8.3 mg/dl (8.6-10.3); Creatinine Clr Calc Pharmacy 38.9 ml/min; Est GFR (African American) 63.7 ml/min; Globulin 2.4 gm/dl (2.5-4.0); Potassium 4.2 mmol/L (3.5-5.1); Total Protein 5.5 gm/dl (6.0-8.3)
[2023-04-06 06:30] LABS: INR 1.1 (0.9-1.1); Prothrombin Time 11.5 Seconds (9.0-12.0)
[2023-04-06] MEDS: DULoxetine HCL 60 MG CAP PO SCH (08:03)
[2023-04-06] MEDS: METOCLOPRAMIDE HCL 5 MG TABLET PO SCH ×4 (08:03→19:45)
[2023-04-06] MEDS: APIXABAN 2.5 MG TAB PO SCH ×2 (08:04→19:45)
[2023-04-06] MEDS: METOPROLOL SUCC 25MG EXT REL TAB PO SCH (08:04)
[2023-04-06] MEDS: PRAVASTATIN SOD 40 MG TAB PO SCH (08:04)
[2023-04-06] MEDS: AMIODARONE 200 MG TAB PO SCH (08:04)
[2023-04-06] MEDS: PANTOprazole 40 MG TAB PO SCH (08:05)
[2023-04-06] MEDS: PREMARIN VAG CRM 14 APPLN/30 GM TUBE PV SCH (08:05)
--- NOTE | 2023-04-06 09:31 | Infectious Disease Consult ---
Date of Consultation April 06, 2023 Assessment & Plan (1) Recurrent UTI: (2) Cystitis: (3) Infection due to ESBL-producing Klebsiella pneumoniae: Plan Micro: 04/02 UCx: Klebsiella aerogenes (S erta, gent, shaggy, tobra, pip/tazo. R cefepime, ceftriaxone, cipro, levo, nitrofurantoin, TMP/SMX) 03/16 UCx: VRE, Shea albicans/dubliniensis 03/12 UCx: 3 types of organisms 03/01 UCx: ESBL Kleb pneumo (S amox/clav, erta, gent, shaggy, tobra, pip-tazo. R cipro, levo, TMP/SMX. I nitrofurantoin) 02/09 UCx: ESBL Kleb pneumo 01/27 UCx: ESBL Kleb pneumo 11/18 UCx: ESBL Kleb pneumo 06/25 UCx: Proteus mirabilis (grimm-sensitive) 02/03/22 UCx: ESBL Kleb pneumo 11/02/21 UCx: ESBL Kleb pneumo 09/05/21 UCx: E coli (grimm-sensitive) Abx: Ertapenem 04/02 - present Daptomycin 04/02 - 04/03 Problems: #Recurrent UTI 82 yo F with history of HTN, diastolic dysfunction, LVH, lumbar spinal stenosis, paroxysmal afib, CKD, anemia, osteoporosis, rheumatoid arthritis, recurrent UTIs who presented on 04/02 with dysuria x 1 day, admitted with cystitis secondary to ESBL Klebsiella aerogenes. On presentation, VSS with unremarkable CBC and CMP. UA with > 30 WBCs, and UCx grew ESBL Kleb aerogenes for which pt is on ertapenem. CT A/P with IV contrast showed no acute intra-abdominal process, kidneys, ureters, and bladder unremarkable. Pt had been having recurrent UTIs with ESBL Kleb pneumo in Fall 2022, for which her PCP treated her with Augmentin without improvement. She was admitted 03/01-03/17 with urine culture growing the same, and was treated with ertapenem x 5 days with improvement. Pt reports feeling her bladder bulging into her vagina--should be evaluated for bladder prolapse. Feels her dysuria has improved since hospitalization. Pt has been covered with ertapenem appropriately this hospitalization. Will transition to one time dose of gentamicin to complete the course, noting that the gen tamicin LINDY is higher at 4, but the drug should reach high levels in the bladder to overcome this. Recommendations: -If pt is having bladder prolapse, this can cause incomplete bladder emptying, contributing to recurrent UTIs. Recommend pt be evaluated by gynecology as an outpatient to address possible bladder prolapse -Agree with initiation of vaginal estrogen cream to help prevent recurrent UTIs -Discontinued ertapenem. Will complete treatment of ESBL Kleb aerogenes cystitis with a 1 time dose of gentamicin 250 mg IV (5 mg/kg dosed by IBW 50 kg), which will reach high levels in her bladder and remain in her system for several days (ordered) Will sign off. Please page [facility] Center with further questions. Consultation Information Consultation was provided via telemedicine using two-way real-time interactive telecommunication between the patient and the telemedicine provider. For the duration of the visit, the provider was performing the assessment from a different facility than the patient. This includesuse of bluetooth stethoscope forauscultationperformed by the telepresenter that the telemedicine provider can hear if described in the physical exam. It Support Specialist contact information: Please call [facility] [phone]. (Phone Number For Physician Use Only) After establishing a telemedicine visit, patient was: Patient was verified with two unique identifiers, Patient/authorized rep acknowledged consent and understanding and Gave permission to continue telehealth session Time Spent with Patient: Initial => 40 min History of Present Illness Reason for Consultation: Recurrent UTI Attending Physician: Peyman David MD History of Present Illness 82 yo F with history of HTN, diastolic dysfunction, LVH, lumbar spinal stenosis, paroxysmal afib, CKD, anemia, osteoporosis, rheumatoid arthritis, recurrent UTIs who presented on 04/02 with dysuria, urinary frequency which developed the day prior. On presentation, patient was afebrile, VSS. Labs showed no leukocytosis, creatinine at baseline 0.94, UA with over [address] A/P with IV contrast showed no acute intra-abdominal process, kidneys, ureters, and bladder unremarkable. Patient was started on daptomycin, ertapenem based on prior urine culture data. Urine culture is now growing ESBL Klebsiella aerogenes. On my evaluation, pt denies fevers or flank pain. Rreports that she has been dealing with recurrent UTIs for ~6 months. She denies difficulty initiating the stream of urine, or of emptying her bladder. Her symptoms of dysuria improved after her last hospitalization, but did not fully go away. Her dysuria flared up again recently. Notes that she can feel her bladder bulging into her vagina. Does not use a pessary. Has not seen a senior patient account representative for a long time. Her dysuria has improved since hospitalization. Allergies Allergy/AdvReac Type Severity Reaction Status Date / Time tramadol Allergy ITCHY Verified 04/02/23 21:36 Home Medications Medication Instructions Recorded Confirmed Type ysegjcvd-[id number]-wdkba acid 0.4 1 tab PO DAILY 09/10/20 04/02/23 History mg-lycopene 300 mcg-lutein 250 mcg tablet (Centrum Silver) diphenhydramine 25 1 tab PO HS PRN Pain 08/06/21 04/02/23 History mg-acetaminophen 500 mg tablet (Tylenol PM Extra Strength) vitamins A,C,N-zzco-ckjmnr 4,296 1 cap PO BID 08/06/21 04/02/23 History mcg-226 mg-90 mg capsule (PreserVision AREDS) magnesium oxide 400 mg (241.3 mg 400 mg PO BID #180 tabs 02/19/22 04/02/23 Rx magnesium) tablet metoprolol succinate 25 mg 25 mg PO QAM #90 tabs 06/05/22 04/02/23 Rx tablet,extended release 24 hr ferrous sulfate 325 mg (65 mg 325 mg PO DAILY #90 tabs 10/08/22 04/02/23 Rx iron) tablet (Iron (ferrous sulfate)) ropinirole 0.25 mg tablet 0.25 mg PO HS #90 tabs 11/16/22 04/02/23 Rx apixaban 2.5 mg tablet (Eliquis) 2.5 mg PO BID #60 tabs 01/25/23 04/02/23 Rx duloxetine 60 mg capsule,delayed 60 mg PO QAM #90 caps 02/01/23 04/02/23 Rx release omeprazole 40 mg capsule,delayed 40 mg PO QAM #90 caps 02/03/23 04/02/23 Rx release pravastatin 40 mg tablet 40 mg PO DAILY #90 tabs 02/10/23 04/02/23 Rx famotidine 40 mg tablet 40 mg PO HS #90 tabs 02/23/23 04/02/23 Rx amiodarone 200 mg tablet 200 mg PO QAM 03/01/23 04/02/23 History diclofenac sodium 1.5 % topical 1 drp topical UD 03/01/23 04/02/23 History drops duloxetine 30 mg capsule,delayed 30 mg PO QPM 03/01/23 04/02/23 History release acetaminophen 500 mg tablet 500 mg PO Q6H PRN Pain 04/02/23 04/02/23 History (Tylenol Extra Strength) metoclopramide HCl 5 mg tablet 5 mg PO ACHS 04/02/23 04/02/23 History Patient History Medical History Closed rib fracture (~03/06/22) Urinary incontinence Pleural effusion, bilateral (01/2022) Venous insufficiency of both lower extremities Fracture, tibia and fibula, proximal Hematoma of right lower extremity Fracture of greater trochanter of right femur Fall Closed hip fracture (~06/09/21) Chronic anticoagulation Hypercholesterolemia PAF (paroxysmal atrial fibrillation) Diastolic dysfunction LVH (left ventricular hypertrophy) Grief Depression Diaphragmatic hernia Lumbar spinal stenosis Vitamin D deficiency Osteoporosis GERD without esophagitis Diverticulosis Disc degeneration, lumbar Cystic thyroid nodule Chronic kidney disease, stage III (moderate) Anxiety Mitral regurgitation Rheumatoid arthritis Osteoarthritis Macular degeneration Hypertension Scoliosis Anemia Surgical History Status post Adilia fundoplication (01/2022) History of repair of hiatal hernia (01/2022) S/P ORIF (open reduction internal fixation) fracture (~03/2021) Knee arthropathy (10/2017) S/P thyroid surgery (01/2019) Status post arthroscopic partial medial meniscectomy (11/02/17) H/O bilateral oophorectomy (04/2017) History of hysterectomy (1988) History of total hip arthroplasty History of tooth extraction History of tonsillectomy History of adenoidectomy History of cataract surgery Family History Father Coronary heart disease Colorectal cancer Kidney disease Lung disease Mother Coronary heart disease Myocardial infarction Gallbladder disease Sister Diabetes Colorectal cancer Family/Other Diabetes Denies family history of Ovarian cancer Prostate cancer Breast cancer Social History (Reviewed 02/14/23 @ 08:32 by JULIA Perdomo Smoking Status: Never smoker Second Hand Exposure: Yes; Do You Dip or Chew Tobacco: No; Hx Alcohol Use: No Hx Substance Use: No Preferred Language: Greenlandic Communication Ability: Effective Visual Impairment: No Limitations Hearing Ability: Use of Hearing Aid Hog Killer Required: No Beliefs That Will Affect Care: None marital status: / marital status details: passed August 2018 Current Living Situation: Family Current Living Situation Comment: WITH DAUGHTER current occupational status: retired current occupation: [employer] How many Children do You have: 2 Feels Safe at Home: Yes Safety Concerns: Feels Safe At This Time Childhood Exposure to Second-Hand Smoke: No Diet Comment: regular caffeine: Yes (1/2 cup a day) during the past year weight has: decreased > 10 lbs Dental Care, Regularly: Yes Physical Activity Frequency: Daily Seatbelt Use: always Sunscreen Use: No Assistive Devices: Walker and Wheelchair Review of System A complete ROS was performed and is negative except as mentioned in the HPI. Physical Exam Physical Exam: GEN: elderly woman laying in bed in NAD. RESP: No increased work of breathing ABD: Soft, non-distended. Non-tender to palpation. EXT: Warm, well-perfused. SKIN: No lesions or rashes on exposed skin. BACK: No CVA tenderness NEURO: Alert and oriented. Answers all questions appropriately. Speech not s lurred. PSYCH: Normal mood, affect appropriate. Results & Data Vital Signs (Past 12 Hours) Vital Signs Temp Pulse Resp BP Pulse Ox O2 Del Method 04/06/23 07:58 36.4 C L 65 16 153/76 H 95 Room Air Laboratory Results Short CBC 04/06/23 Range/Units 05:33 WBC 5.66 (4.8-10.8) K/ul Hgb 10.6 L (12.0-16.0) g/dl Hct 31.6 L (37.0-47.0) % Plt Count 205 (130-400) K/uL BMP 04/06/23 05:33 Sodium 138 Potassium 4.2 Chloride 105 Carbon Dioxide 27 BUN 14 Creatinine 0.95 Glucose 88 Calcium 8.3 L Liver Function 04/06/23 Range/Units 05:33 Total Bilirubin 0.5 (0.2-1.0) mg/dl AST 15 (13-39) U/L ALT 16 (7-52) U/L Alkaline Phosphatase 66 (34-104) U/L Albumin 3.1 L (3.4-5.0) gm/dl Medications Administered Current Inpatient Medications Acetaminophen (Acetaminophen 500 Mg Tab) 500 mg PO Q6H PRN PRN Reason: Pain Stop: 05/02/23 22:49 Last Admin: 04/06/23 05:08 Dose: 500 mg Amiodarone HCl (Amiodarone 200 Mg Tab) 200 mg PO QAM JULIANE Stop: 05/03/23 08:59 Last Admin: 04/06/23 08:04 Dose: 200 mg Apixaban (Apixaban 2.5 Mg Tab) 2.5 mg PO BID JULIANE Stop: 05/03/23 08:59 Last Admin: 04/06/23 08:04 Dose: 2.5 mg Duloxetine HCl (Duloxetine Hcl 60 Mg Cap) 60 mg PO QAM JULIANE Stop: 05/03/23 08:59 Last Admin: 04/06/23 08:03 Dose: 60 mg Duloxetine HCl (Duloxetine Hcl 30 Mg Cap) 30 mg PO QPM JULIANE Stop: 05/03/23 20:59 Last Admin: 04/05/23 19:33 Dose: 30 mg Estrogens Conjugated (Premarin Vag Crm 14 Appln/30 Gm Tube) 1 appln PV DAILY JULIANE Stop: 05/04/23 10:14 Last Admin: 04/06/23 08:05 Dose: 1 appln Famotidine (Famotidine 40 Mg Tablet) 40 mg PO HS JULIANE Stop: 05/03/23 20:59 Last Admin: 04/05/23 19:33 Dose: 40 mg Ertapenem 1,000 mg/ Syringe 10 mls @ 2 mls/min IV Q24H JULIANE Stop: 04/13/23 19:59 Last Admin: 04/05/23 19:33 Dose: 2 mls/min Metoclopramide HCl (Metoclopramide Hcl 5 Mg Tablet) 5 mg PO ACHS JULIANE Stop: 05/03/23 07:29 Last Admin: 04/06/23 08:03 Dose: 5 mg Metoprolol Succinate (Metoprolol Succ 25mg Ext Rel Tab) 25 mg PO QAM JULIANE Stop: 05/03/23 08:59 Last Admin: 04/06/23 08:04 Dose: 25 mg Pantoprazole Sodium (Pantoprazole 40 Mg Tab) 40 mg PO QAM JULIANE Stop: 05/03/23 08:59 Last Admin: 04/06/23 08:05 Dose: 40 mg Pravastatin Sodium (Pravastatin Sod 40 Mg Tab) 40 mg PO DAILY JULIANE Stop: 05/05/23 10:59 Last Admin: 04/06/23 08:04 Dose: 40 mg Ropinirole HCl (Ropinirole Hcl 0.25 Mg Tablet) 0.25 mg PO [facility] Stop: 05/03/23 20:59 Last Admin: 04/05/23 19:33 Dose: 0.25 mg
[2023-04-06] MEDS ORDERED: GENTAMICIN CONSULT ACTIVE PRN (12:19)
[2023-04-06] MEDS ORDERED: GENTAMICIN SULFATE 250 MG in DEXTROSE 5% 100 ML IV ONE (13:00)
--- NOTE | 2023-04-06 16:14 | Hospitalist Progress Note ---
Date of Service April 06, 2023 Assessment & Plan (1) Recurrent UTI: Plan: -Patient was recently admitted (03/01) to [facility] [place] due to Enterococcus faecium VRE UTI --> evaluated by ID and received a 5 day course of Ertapenem -Patient back with recurrent UTI symptoms, UC with Klebsiella Aerogenes, sensitive to carbapenems -Started on Daptomycin and Ertapenem in the ED after discussions with Pharmacy - Will continue ertapenem and stop daptomycin. Plan for 7 days of abx, last day 04/08/2023 - Pravastatin restarted after d/c daptomycin -ID consult placed - Was unable to get consultation until after holiday weekend - Stopped ertapenem and gave Gentamycin today to complete course of antibiotics - Recommend continue vaginal estrogen and outpatient follow up with gynecology for possible cytocele -Started on vaginal estrogen on 04/04 for UTI prevention --> should decrease to twice weekly after using daily for two weeks -Continue home Eliquis for DVT PPX -PT/OT (2) Hx of delirium: Plan: -Patient experiencing hospital acquired delirium last admission and had a fall trying to get out of bed -Currently completely alert and oriented -Continue fall precautions and bed alarm (3) PAF (paroxysmal atrial fibrillation): Plan: -Currently in rate controlled afib -Continue Eliquis -Continue amiodarone and metoprolol (4) Hypertension: Plan: -Stable -Continue metoprolol (5) Anxiety: Plan: -Continue Duloxetine (6) Restless leg: Plan: -Continue requip (7) Diastolic dysfunction: Plan: Chronic combined systolic and diastolic CHF - Not on diuretics - continue metoprolol Plan Dispo: continued inpatient stay, likely d/c tomorrow pending Admission and Anticipated Discharge Date Admission Date: April 02, 2023 Subjective Patient seen lying in bed. Reports feeling tired today and has been napping. No fevers or chills overnight. No pain with urination or other urinary symptoms. Had a BM today. Is not interested in returning to [facility] or any other rehab, states she can do PT at home. Review of Systems Review of Systems: All systems reviewed & are unremarkable except as noted in Subjective Physical Exam Physical Exam: General: Lying in bed, NAD, VS as above Resp: normal respiratory effort, lungs clear to auscultation CV: RRR, no murmur, Abd: normal bowel sounds, non tender, no hepatosplenomegaly Extremities: Moves all extremities, no edema Neuro: A&O x3, Results & Data Results & Data Vital Signs (Past 12 Hours) Vital Signs Temp Pulse Resp BP Pulse Ox O2 Del Method 04/06/23 09:00 Room Air 04/06/23 07:58 36.4 C L 65 16 153/76 H 95 Room Air Laboratory Results CBC and chemistry reviewed PG Care Time/CCT Total # of Minutes Spent Total Time Spent with Patient: Total time spent is greater than 50% in coordination of care (as documented) at patient's floor/unit and/or counseling patient: Coding Level of Care Code 58981 SUB INP/OBS CARE 2/35MIN Diagnoses Recurrent UTI N39.0 Hx of delirium Z87.898 PAF (paroxysmal atrial fibrillation) I48.0 Hypertension I10 Anxiety F41.9 Restless leg G25.81 Diastolic dysfunction I51.89
[2023-04-06] MEDS: rOPINIRole HCL 0.25 MG TABLET PO SCH (19:44)
[2023-04-06] MEDS: DULoxetine HCL 30 MG CAP PO SCH (19:44)
[2023-04-06] MEDS: FAMOTIDINE 40 MG TABLET PO SCH (19:44)
[2023-04-07] MEDS: METOCLOPRAMIDE HCL 5 MG TABLET PO SCH ×2 (07:25→11:22)
[2023-04-07] MEDS: ACETAMINOPHEN 500 MG TAB PO PRN (07:25)
[2023-04-07] MEDS: APIXABAN 2.5 MG TAB PO SCH (08:23)
[2023-04-07] MEDS: METOPROLOL SUCC 25MG EXT REL TAB PO SCH (08:23)
[2023-04-07] MEDS: DULoxetine HCL 60 MG CAP PO SCH (08:23)
[2023-04-07] MEDS: AMIODARONE 200 MG TAB PO SCH (08:24)
[2023-04-07] MEDS: PRAVASTATIN SOD 40 MG TAB PO SCH (08:24)
[2023-04-07] MEDS: PANTOprazole 40 MG TAB PO SCH (08:24)
[2023-04-07] MEDS: PREMARIN VAG CRM 14 APPLN/30 GM TUBE PV SCH (08:24)
--- NOTE | 2023-04-07 15:05 | Discharge Summary ---
Discharge Summary Date of Service April 07, 2023 Notes For Next Care Provider - started on vaginal estrogen cream, nightly for two weeks then decrease to twice weekly - could consider D-mannose supplementation - Will need gynecology evaluation for cystocele Medication Changes From Visit - added estrogen vaginal cream Admission HPI Per Admitting Provider Brionna is a 82 y/o female with PMH of HTN, Diastolic disfunction , LVH, GERD, depression, lumbar spinal stenosis, Paroxysmal atrial fibrillation, CDK stage 3, anemia, osteoporosis, rheumatoid arthritis and vitamin D deficiency and recurrent UTI's who presented to the [facility] ED on 04/02 due to concerns for another UTI. She remained stable while in the ED. Labs were significant for an MCV of 102, and UA concerning for recurrent UTI. The patient was recently admitted to [facility] from 03/01-03/17 due to Enterococcus faecium VRE UTI. She was evaluated by infectious disease who recommended completing a 5 day course of Ertapenem. Her admission was complicated by hospital acquired delirium and metabolic encephalopathy from her UTI. Her mental status improved after being started on Ertapenem. Prior to admission the patient was ordered 1gm IV tylenol, and a dose of ertapenem and daptomycin per Pharmacy's recommendations. At the time of the exam the patient was evaluated in the [place] area due to significantly high census. History was obtained from the patient and her daughter. They state that she started to develop increased urinary frequency and dysuria yesterday. These are the same symptoms she experienced with her previous UTI's. At this time her only complaints are low back pain from sitting in a wheelchair for multiple hours. She had her am medications but has not had her evening ones. No other complaints at this time. She is a conditional code; she states that in the event of cardiac arrest she would want CPR and defibrillation up until the point that she would require intubation. If she would require intubation she would want CPR to be discontinued. She would not intubation in the event of respiratory failure. Please refer to Dr. Black's attestation for any changes to the treatment plan Principal Dx & Hospital Course #1 = Principal Diagnosis (1) Recurrent UTI: -Patient was recently admitted (03/01) to [facility] due to Enterococcus faecium VRE UTI --> evaluated by ID and received a 5 day course of Ertapenem -Patient back with recurrent UTI symptoms, UC with Klebsiella Aerogenes, sensitive to carbapenems -Started on Daptomycin and Ertapenem in the ED after discussions with Pharmacy - Will continue ertapenem and stop daptomycin. - Pravastatin restarted after d/c daptomycin -ID consult placed - Was unable to get consultation until after holiday weekend - Stopped ertapenem and gave Gentamycin 1/2 to complete course of antibiotics - Recommend continue vaginal estrogen and outpatient follow up with gynecology for possible cystocele -Started on vaginal estrogen on 04/04 for UTI prevention --> should decrease to twice weekly after using daily for two weeks -Continue home Eliquis for DVT PPX -Home Health arranged through [facility] (2) Hx of delirium: -Patient experiencing hospital acquired delirium last admission and had a fall trying to get out of bed -Currently completely alert and oriented -Recommend 26/10 supervision, lives with daughter (3) PAF (paroxysmal atrial fibrillation): -Continue Eliquis -Continue amiodarone and metoprolol (4) Hypertension: -Stable -Continue metoprolol (5) Anxiety: -Continue Duloxetine (6) Restless leg: -Continue requip (7) Diastolic dysfunction: Chronic combined systolic and diastolic CHF - Not on diuretics - continue metoprolol Plan Dispo: home with daughter and home health Discharge Exam General: resting in bed, NAD, VS as above Resp: normal respiratory effort, lungs clear to auscultation CV: RRR, no murmur, Abd: normal bowel sounds, non tender, no hepatosplenomegaly Extremities: no edema Updated Medication List Medication Instructions Recorded Confirmed Type [id number] acid 0.4 1 tab PO DAILY 09/10/20 04/02/23 History mg-lycopene 300 mcg-lutein 250 mcg tablet (Centrum Silver) diphenhydramine 25 1 tab PO HS PRN Pain 08/06/21 04/02/23 History mg-acetaminophen 500 mg tablet (Tylenol PM Extra Strength) vitamins A,C,N-nviu-qhkfyp 4,296 1 cap PO BID 08/06/21 04/02/23 History mcg-226 mg-90 mg capsule (PreserVision AREDS) magnesium oxide 400 mg (241.3 mg 400 mg PO BID #180 tabs 02/19/22 04/02/23 Rx magnesium) tablet metoprolol succinate 25 mg 25 mg PO QAM #90 tabs 06/05/22 04/02/23 Rx tablet,extended release 24 hr ferrous sulfate 325 mg (65 mg 325 mg PO DAILY #90 tabs 10/08/22 04/02/23 Rx iron) tablet (Iron (ferrous sulfate)) ropinirole 0.25 mg tablet 0.25 mg PO HS #90 tabs 11/16/22 04/02/23 Rx apixaban 2.5 mg tablet (Eliquis) 2.5 mg PO BID #60 tabs 01/25/23 04/02/23 Rx duloxetine 60 mg capsule,delayed 60 mg PO QAM #90 caps 02/01/23 04/02/23 Rx release omeprazole 40 mg capsule,delayed 40 mg PO QAM #90 caps 02/03/23 04/02/23 Rx release pravastatin 40 mg tablet 40 mg PO DAILY #90 tabs 02/10/23 04/02/23 Rx famotidine 40 mg tablet 40 mg PO HS #90 tabs 02/23/23 04/02/23 Rx amiodarone 200 mg tablet 200 mg PO QAM 03/01/23 04/02/23 History diclofenac sodium 1.5 % topical 1 drp topical UD 03/01/23 04/02/23 History drops duloxetine 30 mg capsule,delayed 30 mg PO QPM 03/01/23 04/02/23 History release acetaminophen 500 mg tablet 500 mg PO Q6H PRN Pain 04/02/23 04/02/23 History (Tylenol Extra Strength) metoclopramide HCl 5 mg tablet 5 mg PO ACHS 04/02/23 04/02/23 History conjugated estrogens 0.625 mg/gram 1 applic vaginal DAILY #30 grams 04/07/23 Rx vaginal cream (Premarin) Hospital Stay Data Consultations 04/02/23 20:48 ED Decision to Admit Stat 04/02/23 21:06 Consult Infectious Diseases Routine Diagnostic Imagining Performed 04/02/23 19:12 CT abd pelvis wo con Stat Pending Results Patient Have Any Pending Studies at Discharge: No Discharge Instructions Given to Patient (Per Discharging Provider) Ms Carvajal, You were hospitalized after having an UTI requiring IV antibiotics. You completed your course of antibiotics while you were in the hospital and do NOT have to take any oral antibiotics upon discharge. We did not change any of your home medications. We did start estrogen Vaginal cream to help prevent urinary tract infections. You will apply a pea size amount externally, near the urethra, nightly for two weeks. After this, continue to apply twice weekly. Also recommended that you seen gynecology to be evaluated for a cystocele. You can also consider a daily d-mannose supplement (basically a probiotic for your bladder). To prevent UTIs it is important you - Wipe from front to back - Use unscented gentle soap in the genital area, do not use a washcloth or loofa - If wearing adult diapers/depends do not sit around in wet/soiled briefs You were re-established with home health through [facility]. You should have someone with you 26/10. You are at high risk for falls. If you have any new urinary symptoms (burning with urination, frequency, or urgency), fevers or chills please contact your PCP or return to the ER. It was our pleasure taking care of you, Nemo Bautista PA-C Total Time Total Time Spent Total Time Spent (In Minutes): over 35 minutes spent in discussion with patient, chart review, documentation and discussions with case management Coding Level of Care Code 88646 INP/OBS DISCH >30 MIN Diagnoses Recurrent UTI N39.0 Hx of delirium Z87.898 PAF (paroxysmal atrial fibrillation) I48.0 Hypertension I10 Anxiety F41.9 Restless leg G25.81 Diastolic dysfunction I51.89
== END 2023-04-07 16:36 | disposition home health service (06) | DRG 690 ==
LOC: ED 12:32 → 3E 20:56 → SUATTDRO 20:56 → 3E 22:57

== ENCOUNTER 2023-11-03 14:55 | Inpatient (IN) ==
[2023-11-03] MEDS: KETOROLAC TROMETHAMINE 60 MG/2 ML VIAL IM STA (15:53)
--- NOTE | 2023-11-03 16:09 | Emergency Department Note ---
ED Provider Note History of Present Illness Chief Complaint: Knee Injury/Pain Stated Complaint: KNEE PAIN Time Seen by Provider: 11/03/23 15:35 Source: patient Mode of arrival: EMS Patient is an 83-year-old female who presents to the emergency department with complaints of left knee pain. Patient had a fall yesterday that she was evaluated for in the emergency department. Patient declined left knee x-rays at that time as the knee pain was not as significant. Patient woke this morning with more significant left knee pain and swelling. Patient states that she is unable to bear weight without significant pain. Patient believes that when she was getting on the stretcher with EMS yesterday after her fall that she caught her foot and may have felt a pop in her left knee. Home Medications Medication Instructions Recorded Confirmed Type diphenhydramine 25 2 tab PO HS PRN Sleep 08/06/21 11/03/23 History mg-acetaminophen 500 mg tablet (Tylenol PM Extra Strength) vitamins A,C,I-sgbo-mliprt 4,296 1 cap PO BID 08/06/21 11/03/23 History mcg-226 mg-90 mg capsule (PreserVision AREDS) pravastatin 40 mg tablet 40 mg PO DAILY #90 tabs 02/10/23 11/03/23 Rx acetaminophen 500 mg tablet 1,000 mg PO Q6H PRN Pain 04/02/23 11/03/23 History (Tylenol Extra Strength) metoprolol succinate 25 mg 25 mg PO QAM #90 tabs 05/04/23 11/03/23 Rx tablet,extended release 24 hr ropinirole 0.25 mg tablet 0.25 mg PO HS #90 tabs 05/19/23 11/03/23 Rx ferrous sulfate 325 mg (65 mg 325 mg PO DAILY #90 tabs 07/05/23 11/03/23 Rx iron) tablet (Iron (ferrous sulfate)) amiodarone 200 mg tablet 200 mg PO QAM #90 tabs 07/30/23 11/03/23 Rx magnesium oxide 400 mg (241.3 mg 400 mg PO BID #180 tabs 07/30/23 11/03/23 Rx magnesium) tablet duloxetine 60 mg capsule,delayed 60 mg PO QAM #90 caps 08/03/23 11/03/23 Rx release buspirone 5 mg tablet 5 mg PO BID #180 tabs 08/27/23 11/03/23 Rx metoclopramide HCl 5 mg tablet 5 mg PO QID #120 tabs 09/13/23 11/03/23 Rx omeprazole 40 mg capsule,delayed 40 mg PO QAM #90 caps 09/27/23 11/03/23 Rx release duloxetine 30 mg capsule,delayed 30 mg PO QPM #90 caps 09/30/23 11/03/23 Rx release famotidine 40 mg tablet 40 mg PO HS #90 tabs 09/30/23 11/03/23 Rx Prevagen 1 tab PO DAILY 11/03/23 11/03/23 History apixaban 2.5 mg tablet (Eliquis) 2.5 mg PO .HOLD 11/03/23 11/03/23 History Allergies Allergy/AdvReac Type Severity Reaction Status Date / Time tramadol Allergy ITCHY Verified 11/03/23 19:15 Past Med/Surg History Problem List (Updated 11/03/23 @ 22:18 by Shree Soto LPN) Fracture of tibial plateau, closed (Acute 11/03/23) left knee- comminuted, intra-articular and depressed lateral tibial plateau fracture with fracture extension into the tibial spines and lateral proximal tibial metadiaphysis from a fall Up to date with diphtheria-tetanus vaccination (Acute) Trauma (Acute) Fall (Acute) care home (current) use of anticoagulants (Acute) Closed head injury (Acute) Pelvic pressure in female Recurrent UTI Hx of delirium Urinary incontinence Ambulatory dysfunction Venous insufficiency of both lower extremities Chronic anticoagulation Vitamin D deficiency Osteoporosis Osteoarthritis Macular degeneration LVH (left ventricular hypertrophy) Lumbar spinal stenosis Diastolic dysfunction Anemia Scoliosis Hearing difficulty Medical History Urinary tract infection due to extended-spectrum beta lactamase (ESBL)-producing Klebsiella COVID-19 virus infection Restless leg Closed rib fracture (~03/06/22) Pleural effusion, bilateral (01/2022) s/p chest tube placement Fracture, tibia and fibula, proximal Hematoma of right lower extremity Fracture of greater trochanter of right femur Closed hip fracture (~06/09/21) Hypercholesterolemia PAF (paroxysmal atrial fibrillation) Grief Loss of spouse August 2018 Depression Diaphragmatic hernia GERD without esophagitis Diverticulosis Disc degeneration, lumbar Cystic thyroid nodule Chronic kidney disease, stage III (moderate) Anxiety Mitral regurgitation MODERATE Rheumatoid arthritis Hypertension Surgical History Status post Adilia fundoplication (01/2022) modified toupet fundoplication and gastropexy History of repair of hiatal hernia (01/2022) EGD w/ reduction of hernia S/P ORIF (open reduction internal fixation) fracture (~03/2021) TFN nail L hip post intertrochanteric fx Knee arthropathy (10/2017) w/ medial meniscus repair in 10/2017 S/P thyroid surgery (01/2019) 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 Status post arthroscopic partial medial meniscectomy (11/02/17) R knee H/O bilateral oophorectomy (04/2017) B/L SALPINGOOPHORECTOMY= 04/12/17= GRADE VIEW 2, MAC 3, ETT 7.5 AT [facility] History of hysterectomy (1988) History of total hip arthroplasty RIGHT History of tooth extraction History of tonsillectomy History of adenoidectomy History of cataract surgery RIGHT/LEFT Family History Father Coronary heart disease Colorectal cancer Kidney disease Lung disease Mother Coronary heart disease Myocardial infarction Gallbladder disease Sister Diabetes Colorectal cancer Family/Other Diabetes Denies family history of Ovarian cancer Prostate cancer Breast cancer Social History Smoking Status: Never smoker Second Hand Exposure: Yes; Do You Dip or Chew Tobacco: No; Hx Alcohol Use: No Hx Substance Use: No Preferred Language: Estonian Communication Ability: Effective Visual Impairment: No Limitations Hearing Ability: Use of Hearing Aid Card Player Required: No Beliefs That Will Affect Care: None marital status: / marital status details: passed August 2018 Current Living Situation: Family Current Living Situation Comment: WITH DAUGHTER current occupational status: retired current occupation: [employer] How many Children do You have: 2 Feels Safe at Home: Yes Childhood Exposure to Second-Hand Smoke: No Diet Comment: regular caffeine: Yes (1/2 cup a day) during the past year weight has: decreased > 10 lbs Dental Care, Regularly: Yes Physical Activity Frequency: Daily Seatbelt Use: always Sunscreen Use: No Assistive Devices: Walker and Wheelchair Physical Exam Vital Signs Vital Signs - 24 hr 11/03/23 14:58 11/03/23 15:58 11/03/23 17:00 Temperature 36.9 C Temperature Source Temporal Artery Scan Pulse Rate 78 Pulse Rate [Finger] 76 64 Respiratory Rate 16 18 18 Respiratory Effort / Characteristics Non-Labored Spontaneous Respiratory Depth Normal Blood Pressure 124/62 Blood Pressure [Right Arm] 138/79 149/81 H Blood Pressure Mean 82 Blood Pressure Mean [Right Arm] 98 103 Pulse Oximetry 95 95 Oxygen Delivery Method Room Air Sepsis Recent Fever Within 48 Hours No Sepsis New/Unexplained Change in Mental Status No Sepsis Action Taken by Nursing No Action Required 11/03/23 19:00 Temperature Temperature Source Pulse Rate Pulse Rate [Finger] 72 Respiratory Rate 18 Respiratory Effort / Characteristics Respiratory Depth Blood Pressure Blood Pressure [Right Arm] 155/101 H Blood Pressure Mean Blood Pressure Mean [Right Arm] 119 Pulse Oximetry 94 Oxygen Delivery Method Sepsis Recent Fever Within 48 Hours Sepsis New/Unexplained Change in Mental Status Sepsis Action Taken by Nursing VITAL SIGNS - Vital signs and nursing notes were reviewed. GENERAL -83-year-old female appearing her stated age and in noticeable discomfort throughout the exam. MUSCULOSKELETAL -left knee knee with mild erythema, mild edema, and no ecchymosis. Significant tenderness to palpation appreciated over the medial aspect of the knee. Decreased strength strength appreciated due to patient discomfort. RANGE OF MOTION: Patient states that she is unable to fully extend her left leg without significant pain. Patient finds a position of comfort with approximately 45 degrees of flexion. Patient will not allow me to fully evaluate her range of motion of that knee due to significant pain. NEUROLOGIC/VASCULAR - Neurovascularly intact distally with +3/5 dorsalis pedis pulses palpated bilaterally. Intact sensation to light and sharp touch appreciated distally. Course Course Patient is an 83-year-old female that was seen in the emergency department yesterday after a fall and hitting her head. Patient states that she did have some left knee pain yesterday but it was not significant therefore she declined the x-ray yesterday. The patient returns today for increased knee pain and swelling. The patient was evaluated by myself and findings were noted in the physical exam as above. Imaging studies were performed and read by radiology as above. The patient was medicated with Toradol. The patient was reassessed multiple times during their stay in the emergency department and remained in stable condition. Patient had an x-ray completed which was inconclusive for fracture. Patient was ordered a CT which then showed an acute comminuted, intra-articular depressed fracture of the tibial plateau. Patient lives at home with another elderly female who would be unable to give her adequate assistance with her ADLs. Patient also continues to be in a good amount of pain. Because of these things I spoke with orthopedics and the hospitalist for admission to the hospital. Patient was accepted by the [facility] hospitalist group for admission and orthopedics will see her tomorrow. Patient to be on bedrest for the night. Patient was admitted to the hospital. Administered Medications Discontinued Medications Ketorolac Tromethamine (Ketorolac Tromethamine 60 Mg/2 Ml Vial) 30 mg IM NOW STA Stop: 11/03/23 15:44 Last Admin: 11/03/23 15:53 Dose: 30 mg Documented By: JOSE MARTIN Oxycodone HCl (Oxycodone Hcl Ir 5 Mg Tab (Immediate Release)) 5 mg PO NOW STA Stop: 11/03/23 16:48 Last Admin: 11/03/23 16:53 Dose: 5 mg Documented By: JOSE MARTIN Medical Decision Making Differential Diagnosis Knee fracture, knee dislocation, patellar fracture, tibial plateau fracture, femur head fracture, ACL injury, PCL injury, MCL injury, LCL injury, pes anserine bursitis, hemarthroses, septic arthritis, or gout. Medical Records Attestation: I reviewed the patient's medical records. Imaging Data Radiologist's Impression: Knee X-Ray 11/03/23 15:43 XR knee LT 1 or 2V routine HISTORY: 83 years-old Female knee injury and pain acute left knee pain COMPARISON: 09/29/2021 TECHNIQUE: 2 views of the left knee FINDINGS: Study is limited secondary to positioning. Arterial calcifications. Demineralized appearance of the bones. Moderate medial and lateral with mild patellofemoral compartment osteoarthritis. Trace joint effusion. No definite acute fracture or dislocation. IMPRESSION: 1. Limited exam secondary to positioning. Consideration could be made for follow-up frontal and lateral views. 2. No definite acute fracture or dislocation identified on this limited study. Ill-defined linear lucency projected over the tibial spines is favored to be artifactual. 3. Suprapatellar soft tissue swelling with probable small joint effusion. ACT 112: Negative or not required by law. The above report was generated using voice recognition software. It may contain grammatical, syntax or spelling errors. Electronically signed by: Ezra Gillis M.D. 11/03/2023 4:[address] 11/03/23 16:47 CT knee LT wo con HISTORY: 83 years-old Female knee injury, pain acute left knee pain COMPARISON: Left knee radiographs of same day TECHNIQUE: Multiple axial CT images of the left knee were obtained without IV co ntrast. A dose lowering technique was used consistent with the principals of ALARA. FINDINGS: Demineralized appearance of the bones. There is an acute comminuted intra- articular lateral tibial plateau fracture with articular depression measuring up to approximately 1 cm. Fracture lines extend into the tibial spines. The fracture predominantly involves the mid and anterior aspects of the lateral tibial plateau. The fracture extends into the lateral tibial metadiaphysis on image 216 series 3. The medial tibial plateau appears intact. The distal femur and patella appear intact. No large intra-articular fracture fragments. Arterial calcifications. Tendons and ligaments are not well evaluated by CT technique. Small joint effusion with subcutaneous edema superior to the knee. Arterial calcifications. IMPRESSION: 1. Acute, comminuted, intra-articular and depressed lateral tibial plateau fra cture with fracture extension into the tibial spines and lateral proximal tibial metadiaphysis. 2. Small joint effusion. ACT 112: Negative or not required by law. The above report was generated using voice recognition software. It may contain grammatical, syntax or spelling errors. Electronically signed by: Ezra Gillis M.D. 11/03/2023 5:58 PM MDM Narrative Patient is an 83-year-old female who presents to the emergency department today with complaints of left knee pain. Patient was seen in the emergency department yesterday after having a fall onto her wheelchair and hitting her head. Patient states that she did have left knee pain yesterday but it was not as significant and she declined an x-ray yesterday. Patient returns to the emergency department today with significant left knee pain, decreased range of motion due to discomfort, and increased swelling. Patient had an x-ray completed that was inconclusive for any acute fracture. Because of this a CT scan was ordered of patient's left knee. CT scan revealed an acute comminuted, intra-articular and depressed fracture of the tibial plateau. I discussed with orthopedics what their suggestions for treatment of this fracture would be considering depression was approximately 1 cm. I spoke with Dr. Woods who advised that the patient should be admitted to the medical team and that orthopedics would see her tomorrow. Patient to be on bedrest for tonight. I spoke with [facility] physician group hospitalist team about admitting the patient under their medical service. I explained that the patient lives at home with another elderly female who was unable to assist her with her ADLs should she be in pain or any immobilizer. Patient typically uses a wheelchair and independently transfers from her wheelchair to her chair or bed because the elderly female that she lives with is unable to assist her. The patient also continues to be in a significant amount of pain and would need pain control as well. Not any physician group hospitalist team accepted the patient as an inpatient admission. Impression Fracture of tibial plateau, closed Discharge Plan Visit Data Chief Complaint: Knee Injury/Pain Stated Complaint: KNEE PAIN ED Provider: Shaan Prater ED Midlevel Provider: Niki Koenig Discharge Problem: Fracture of tibial plateau, closed Patient Disposition: Admitted As Inpatient Discharge Instructions Interventions: ED Discharge Assessment Last Done: 11/03/23 23:55 Addendum November 04, 2023 00:18 HPI: The patient is a 83-year-old woman with a past medical history of paroxysmal atrial fibrillation on Eliquis, GERD, hypertension, hyperlipidemia who presents to the emergency department for evaluation of ongoing left knee pain in setting of having a fall yesterday where she was seen in the emergency department. The patient had a negative CT scan of her head in the setting of having a scalp contusion/hematoma. The patient declined an x-ray of her left knee at that time because she did not feel the pain was significant. However this morning she had more pain and swelling and was unable to bear weight. A/P: X-ray of the left knee did not demonstrate definitive fracture and so CT imaging obtained due to significant swelling. This demonstrates acute comminuted, intra-articular depressed fracture of the tibial plateau. Given the patient lives at home with another elderly female and is unable to have this sufficient assistance with immobilization for outpatient follow-up patient was admitted to hospital service for further management and orthopedic consultation. SANDY Koenig discussed the case with orthopedic surgery on-call who agreed with admission to hospitalist service and they will evaluate the patient in consultation. I was consulted by the Advanced Practice Provider and was substantively involved in the patient's visit.This includes aspects of the HPI, MDM, diagnostic interpretations, and disposition/plan. I discussed the case with the SANDY and agree with the findings and plan as documented in SANDY Arya's note. Discharge Problem: Fracture of tibial plateau, closed Qualifiers: Encounter type: initial encounter Laterality: left Qualified Code(s): S82.142A - Displaced bicondylar fracture of left tibia, initial encounter for closed fracture
--- NOTE | 2023-11-03 16:39 | XRay Report ---
XR knee LT 1 or 2V routine HISTORY: 83 years-old Female knee injury and pain acute left knee pain COMPARISON: 09/29/2021 TECHNIQUE: 2 views of the left knee FINDINGS: Study is limited secondary to positioning. Arterial calcifications. Demineralized appearance of the b ones. Moderate medial and lateral with mild patellofemoral compartment osteoarthritis. Trace joint ef fusion. No definite acute fracture or dislocation. IMPRESSION: 1. Limited exam secondary to positioning. Consideration could be made for follow-up frontal and later al views. 2. No definite acute fracture or dislocation identified on this limited study. Ill-defined linear kiran ency projected over the tibial spines is favored to be artifactual. 3. Suprapatellar soft tissue swelling with probable small joint effusion. ACT 112: Negative or not required by law. The above report was generated using voice recognition software. It may contain grammatical, syntax o r spelling errors. Electronically signed by: Ezra Gillis M.D. 11/03/2023 4:37 PM
[2023-11-03] MEDS: oxyCODONE HCL IR 5 MG TAB (IMMEDIATE RELEASE) PO STA (16:53)
--- NOTE | 2023-11-03 18:00 | CT Scan Report ---
CT knee LT wo con HISTORY: 83 years-old Female knee injury, pain acute left knee pain COMPARISON: Left knee radiographs of same day TECHNIQUE: Multiple axial CT images of the left knee were obtained without IV contrast. A dose loweri ng technique was used consistent with the principals of JAILENE. FINDINGS: Demineralized appearance of the bones. There is an acute comminuted intra-articular lateral tibial pl ateau fracture with articular depression measuring up to approximately 1 cm. Fracture lines extend in to the tibial spines. The fracture predominantly involves the mid and anterior aspects of the lateral tibial plateau. The fracture extends into the lateral tibial metadiaphysis on image 216 series 3. Th e medial tibial plateau appears intact. The distal femur and patella appear intact. No large intra-ar ticular fracture fragments. Arterial calcifications. Tendons and ligaments are not well evaluated by CT technique. Small joint ef fusion with subcutaneous edema superior to the knee. Arterial calcifications. IMPRESSION: 1. Acute, comminuted, intra-articular and depressed lateral tibial plateau fracture with fracture ext ension into the tibial spines and lateral proximal tibial metadiaphysis. 2. Small joint effusion. ACT 112: Negative or not required by law. The above report was generated using voice recognition software. It may contain grammatical, syntax o r spelling errors. Electronically signed by: Ezra Gillis M.D. 11/03/2023 5:58 PM
--- NOTE | 2023-11-03 19:02 | History & Physical Report ---
Date of Service November 03, 2023 Assessment & Plan (1) Fracture of tibial plateau, closed: (2) Fall: (3) FPC (current) use of anticoagulants: (4) Osteoporosis: (5) Vitamin D deficiency: (6) Lumbar spinal stenosis: (7) Chronic kidney disease, stage III (moderate): (8) GERD without esophagitis: (9) Hypertension: Plan Patient is a 83 yo F w/ a PMHx of ambulatory dysfunction, venous insufficiency, chronic anticoagulation for paroxysmal AFib, osteoporosis, vit D deficiency, osteoarthritis, lumbar spinal stenosis, GERD, macular degeneration, CKD-stage 3, and hearing difficulty who presented to [facility] ED one day after being discharged after she'd visited earlier due to a fall she'd had while attempting to weigh herself. 1) Left lateral tibial plateau fracture - CT-left knee: IMPRESSION: 1. Acute, comminuted, intra-articular and depressed lateral tibial plateau fr acture with fracture extension into the tibial spines and lateral proximal tibial metadiaphysis. 2. Small joint effusion. - RCRI score of 0 (Class I risk)--no Hx of ischemic heart dz, no CHF, Cr < 2.0, no insulin Tx - Orthopedic surgery consulted - Tylenol, 650 mg, q4h, PRN for mild pain; Toradol, 10 mg, IV, q8h, PRN for moderate pain - morphine sulfate, 2 mg, IV, q4hr for severe pain - monitor Cr levels w/ AM BMP (for continued toradol use) - AM CBC labs 2) Paroxysmal atrial fibrillation - hold Eliquis - continue amiodarone and metoprolol 3) HTN - continue metoprolol (as above) 4) Depression/anxiety - continue buspirone 5) lumbar spinal stenosis - continue duloxetine 6) GERD - continue omeprazole (or substitute pantoprazole) 7) HLD - continue pravastatin 8) Restless legs syndrome - metoclopramide 9) Osteoporosis/vit D deficiency - last DEXA scan cancelled in 2020 - patient not on a bisphosphonate (may be in drug therapy holiday) - F/U w/ PCP as outpt, consider re-starting bisphosphonate after new DEXA scan Code status: Full code Disposition: Med-Surg w/ Telemetry DVT Prophylaxis: SCD's (to the knee) YOSHII: NPO at midnight History of Present Illness Chief Complaint: left knee pain after fall Primary Care Provider: Kimber Prater DO Patient is a 83 yo F w/ a PMHx of ambulatory dysfunction, venous insufficiency, chronic anticoagulation, osteoporosis, vit D deficiency, osteoarthritis, lumbar spinal stenosis, macular degeneration, and hearing difficulty who presented to [facility] ED one day after being discharged after she'd visited earlier due to a fall she'd had while attempting to weigh herself. While getting into a gurney and being placed into an ambulance, patient felt a painless pop in her knee at the time but didn't think much about it. She returned to the ED today after having concerns for a left knee injury. At this time patient only endorses a pain of 1/10 over the lateral joint line of the left knee along with decreased ROM of knee flexion. Allergies Allergy/AdvReac Type Severity Reaction Status Date / Time tramadol Allergy ITCHY Verified 11/03/23 19:15 Home Medications Medication Instructions Recorded Confirmed Type diphenhydramine 25 2 tab PO HS PRN Sleep 08/06/21 11/03/23 History mg-acetaminophen 500 mg tablet (Tylenol PM Extra Strength) vitamins A,C,I-zzjs-heqmia 4,296 1 cap PO BID 08/06/21 11/03/23 History mcg-226 mg-90 mg capsule (PreserVision AREDS) pravastatin 40 mg tablet 40 mg PO DAILY #90 tabs 02/10/23 11/03/23 Rx acetaminophen 500 mg tablet 1,000 mg PO Q6H PRN Pain 04/02/23 11/03/23 History (Tylenol Extra Strength) metoprolol succinate 25 mg 25 mg PO QAM #90 tabs 05/04/23 11/03/23 Rx tablet,extended release 24 hr ropinirole 0.25 mg tablet 0.25 mg PO HS #90 tabs 05/19/23 11/03/23 Rx ferrous sulfate 325 mg (65 mg 325 mg PO DAILY #90 tabs 07/05/23 11/03/23 Rx iron) tablet (Iron (ferrous sulfate)) amiodarone 200 mg tablet 200 mg PO QAM #90 tabs 07/30/23 11/03/23 Rx magnesium oxide 400 mg (241.3 mg 400 mg PO BID #180 tabs 07/30/23 11/03/23 Rx magnesium) tablet duloxetine 60 mg capsule,delayed 60 mg PO QAM #90 caps 08/03/23 11/03/23 Rx release buspirone 5 mg tablet 5 mg PO BID #180 tabs 08/27/23 11/03/23 Rx metoclopramide HCl 5 mg tablet 5 mg PO QID #120 tabs 09/13/23 11/03/23 Rx omeprazole 40 mg capsule,delayed 40 mg PO QAM #90 caps 09/27/23 11/03/23 Rx release duloxetine 30 mg capsule,delayed 30 mg PO QPM #90 caps 09/30/23 11/03/23 Rx release famotidine 40 mg tablet 40 mg PO HS #90 tabs 09/30/23 11/03/23 Rx Prevagen 1 tab PO DAILY 11/03/23 11/03/23 History apixaban 2.5 mg tablet (Eliquis) 2.5 mg PO .HOLD 11/03/23 11/03/23 History Past Med/Surg History Problem List (Updated 11/03/23 @ 19:11 by AUSTEN Coreas) Fracture of tibial plateau, closed (Acute) Up to date with diphtheria-tetanus vaccination (Acute) Trauma (Acute) 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) 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 (Acute) Closed head injury (Acute) Pelvic pressure in female Recurrent UTI Hx of delirium Urinary incontinence Ambulatory dysfunction Venous insufficiency of both lower extremities Chronic anticoagulation Vitamin D deficiency Osteoporosis Osteoarthritis Macular degeneration LVH (left ventricular hypertrophy) Lumbar spinal stenosis Diastolic dysfunction Anemia Scoliosis Hearing difficulty Medical History Urinary tract infection due to extended-spectrum beta lactamase (ESBL)-producing Klebsiella COVID-19 virus infection Restless leg Closed rib fracture (~03/06/22) Pleural effusion, bilateral (01/2022) s/p chest tube placement Fracture, tibia and fibula, proximal Hematoma of right lower extremity Fracture of greater trochanter of right femur Closed hip fracture (~06/09/21) Hypercholesterolemia PAF (paroxysmal atrial fibrillation) Grief Loss of spouse August 2018 Depression Diaphragmatic hernia GERD without esophagitis Diverticulosis Disc degeneration, lumbar Cystic thyroid nodule Chronic kidney disease, stage III (moderate) Anxiety Mitral regurgitation MODERATE Rheumatoid arthritis Hypertension Surgical History Status post Adilia fundoplication (01/2022) modified toupet fundoplication and gastropexy History of repair of hiatal hernia (01/2022) EGD w/ reduction of hernia S/P ORIF (open reduction internal fixation) fracture (~03/2021) TFN nail L hip post intertrochanteric fx Knee arthropathy (10/2017) w/ medial meniscus repair in 10/2017 S/P thyroid surgery (01/2019) 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 Status post arthroscopic partial medial meniscectomy (11/02/17) R knee H/O bilateral oophorectomy (04/2017) B/L SALPINGOOPHORECTOMY= 04/12/17= GRADE VIEW 2, MAC 3, ETT 7.5 AT [facility] History of hysterectomy (1988) History of total hip arthroplasty RIGHT History of tooth extraction History of tonsillectomy History of adenoidectomy History of cataract surgery RIGHT/LEFT Family History Father Coronary heart disease Colorectal cancer Kidney disease Lung disease Mother Coronary heart disease Myocardial infarction Gallbladder disease Sister Diabetes Colorectal cancer Family/Other Diabetes Denies family history of Ovarian cancer Prostate cancer Breast cancer Social History Smoking Status: Never smoker Second Hand Exposure: Yes; Do You Dip or Chew Tobacco: No; Hx Alcohol Use: No Hx Substance Use: No Preferred Language: Nicaraguan Communication Ability: Effective Visual Impairment: No Limitations Hearing Ability: Use of Hearing Aid Commercial Litigation Attorney Required: No Beliefs That Will Affect Care: None marital status: / marital status details: passed August 2018 Current Living Situation: Family Current Living Situation Comment: WITH DAUGHTER 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 How many Children do You have: 2 Feels Safe at Home: Yes Childhood Exposure to Second-Hand Smoke: No Diet Comment: regular caffeine: Yes (1/2 cup a day) during the past year weight has: decreased > 10 lbs Dental Care, Regularly: Yes Physical Activity Frequency: Daily Seatbelt Use: always Sunscreen Use: No Assistive Devices: Walker and Wheelchair Review of Systems Constitutional: no fever, no chills and no fatigue Respiratory: + cough (chronic cough at night); no dys pnea and no sputum production Cardiovascular: no chest pain, no palpitations, no lightheadedness, no edema and no calf pain Gastrointestinal: no nausea, no vomiting, no constipation and no diarrhea/loose stools Genitourinary: no dysuria and no urinary frequency Neurologic: no tingling, no numbness and no confusion Physical Exam Constitutional: WD/WN, vitals as above Respiratory: normal respiratory effort, lungs clear to auscultation Cardiovascular: RRR, no murmur, no edema Extremities: normal capillary refill; no calf tenderness and no pedal edema Gastrointestinal (Abdomen): normal bowel sounds, soft, nontender, no hepatosplenomegaly Musculoskeletal: Knee: + effusion (bilateral knee swelling, more pronounced on left) and + limited ROM of knee (left knee) Neurologic: normal touch/pain/proprioception and awake Motor/Sensory: no sensory deficit Psychiatric: A+Ox3, euthymic affect Results & Data Results & Data Vital Signs (Past 12 Hours) Vital Signs Temp Pulse Pulse Resp BP BP Pulse Ox 11/03/23 17:00 64 18 149/81 H 95 11/03/23 15:58 76 18 138/79 11/03/23 14:58 36.9 C 78 16 124/62 95 O2 Del Method 11/03/23 17:00 11/03/23 15:58 11/03/23 14:58 Room Air Diagnostic Findings Knee X-Ray 11/03/23 15:43 XR knee LT 1 or 2V routine HISTORY: 83 years-old Female knee injury and pain acute left knee pain COMPARISON: 09/29/2021 TECHNIQUE: 2 views of the left knee FINDINGS: Study is limited secondary to positioning. Arterial calcifications. Demineralized appearance of the bones. Moderate medial and lateral with mild patellofemoral compartment osteoarthritis. Trace joint effusion. No definite acute fracture or dislocation. IMPRESSION: 1. Limited exam secondary to positioning. Consideration could be made for follow-up frontal and lateral views. 2. No definite acute fracture or dislocation identified on this limited study. Ill-defined linear lucency projected over the tibial spines is favored to be artifactual. 3. Suprapatellar soft tissue swelling with probable small joint effusion. ACT 112: Negative or not required by law. The above report was generated using voice recognition software. It may contain grammatical, syntax or spelling errors. Electronically signed by: Ezra Gillis M.D. 11/03/2023 4:[address] 11/03/23 16:47 CT knee LT wo con HISTORY: 83 years-old Female knee injury, pain acute left knee pain COMPARISON: Left knee radiographs of same day TECHNIQUE: Multiple axial CT images of the left knee were obtained without IV contrast. A dose lowering technique was used consistent with the principals of ALARA. FINDINGS: Demineralized appearance of the bones. There is an acute comminuted intra- articular lateral tibial plateau fracture with articular depression measuring up to approximately 1 cm. Fracture lines extend into the tibial spines. The fracture predominantly involves the mid and anterior aspects of the lateral tibial plateau. The fracture extends into the lateral tibial metadiaphysis on image 216 series 3. The medial tibial plateau appears intact. The distal femur and patella appear intact. No large intra-articular fracture fragments. Arterial calcifications. Tendons and ligaments are not well evaluated by CT technique. Small joint effusion with subcutaneous edema superior to the knee. Arterial calcifications. IMPRESSION: 1. Acute, comminuted, intra-articular and depressed lateral tibial plateau fracture with fracture extension into the tibial spines and lateral proximal tibial metadiaphysis. 2. Small joint effusion. ACT 112: Negative or not required by law. The above report was generated using voice recognition software. It may contain grammatical, syntax or spelling errors. Electronically signed by: Ezra Gillis M.D. 11/03/2023 5:58 PM Supervising Physician Co-Signing Physician Notes Patient seen and examined, chart reviewed, case discussed with Dr. Mcguire and I agree with the assessment and plan as above except as otherwise noted Labs and images reviewed Moni is an 83yo F hx of ambulatory dysfunction, OA, spinal stenosis, pAfib on anticoagulation who tripped and fell striking her knee. Was dced yesterday and had initially refused knee iamging, but unfortunately has continued to have pain and inability to ambulate. Pt did feel a pop in her knee during her injury yesterday. Presented today and CT shows acute communuted intra-articular and depressed tibial platea fracture with fracture extension. Ortho consulted. Will place in a brace tomorrow and evaluate for potiential intervention if needed. Recommended medical admission. Small joint effusion is present. Restricted RoM in L knee with +effusion on exam. Some medial laxity on exam but exam limited by pain and tibial fracture. Given patient had a painless pop and knee swelling which occurred separate from her injury? If she had a ligamentous injury; does have diffuse effusion and full exam is limited by pain and acute fracture. Lungs are clear, heart rate is regular. Sensation soft touch is intact in the feet bilaterally, able to dorsiflex/plantarflex at the ankle bilaterally, posterior tibialis difficult to appreciate but PT pulse is intact bilaterally and cap refill is approximately 2 seconds in the hallux bilaterally. Agree w. admission, brace, and pending ortho evaluation. Afib: eliquis held pending surgical eval and in setting of acute fracture. EKG pending, heart rate is regular at time of bedside assessment. SCDs in place No history of insulin use, no recent strokes, patient is very active but denies any chest pain with exertion and denies orthopnea. Denies history of heart failure. If she were to be recommended for surgical intervention RCRI 0 points class I risk without high risk modifiable risk factors at time of admission. Agree with above (1) Fracture of tibial plateau, closed Encounter type: initial encounter Laterality: left Qualified Code(s): S82.142A - Displaced bicondylar fracture of left tibia, initial encounter for closed fracture (2) Fall Encounter type: initial encounter Qualified Code(s): W19.XXXA - Unspecified fall, initial encounter
[2023-11-03] MEDS ORDERED: ACETAMINOPHEN 325 MG TAB PO PRN (23:55)
[2023-11-04] MEDS: DULoxetine HCL 30 MG CAP PO SCH (01:22)
[2023-11-04] MEDS: busPIRone 5 MG TAB PO SCH (01:22)
[2023-11-04] MEDS: FAMOTIDINE 40 MG TABLET PO SCH (01:22)
[2023-11-04] MEDS: METOCLOPRAMIDE HCL 5 MG TABLET PO SCH (01:23)
[2023-11-04] MEDS: rOPINIRole HCL 0.25 MG TABLET PO SCH (01:23)
[2023-11-04] MEDS: MAGNESIUM OXIDE 400 MG TAB PO SCH (01:23)
[2023-11-04] MEDS: KETOROLAC TROMETHAMINE 15 MG/ML VIAL IV SCH (01:26)
[2023-11-04] MEDS: MoRPHine SULFATE 2 MG/ML CARP IV PRN (05:19)
--- NOTE | 2023-11-04 07:53 | Orthopedic Consultation ---
Date of Service November 04, 2023 Assessment & Plan (1) Fracture of tibial plateau, closed: This patient was discussed with Dr. Castillo. I also discussed the patient's diagnosis as well as treatment options including risk, benefits and alternatives with the patient. She does not have much depression on imaging, therefore we can begin to treat this conservatively. She does not ambulate much at home and is mainly wheelchair-bound. She should remain nonweightbearing in the left lower extremity for about 6 weeks. She is already on Eliquis, therefore she is covered for DVT prophylaxis. No surgical intervention indicated at this time. She is neurovascularly intact and stable. She may be seen in about 2 weeks as an outpatient for jesenia-ray. Please reach out to orthopedics with any questions or concerns or if there is any worsening. History of Present Illness Reason for Consultation: left knee tibial plateau fracture Requesting Physician: . Attending Physician: Patricia Holman MD Brionna is an 83-year-old female who is being consulted today for left knee pain and a left knee tibial plateau fracture that was found after a fall on 11/02/2023. She was seen in the emergency department on 11/02/2023, however her left knee pain was not significant at that time and she declined x-rays. She reported back to the emergency department on 11/03/2023 for evaluation of her left knee pain and swelling. X-rays were taken and a CT was also performed and she was found to have a left tibial plateau fracture. She was admitted to the hospital for ambulatory dysfunction. Today, the patient states that she does not ambulate much at home. She does try to use a rolling walker when able but is mainly wheelchair-bound. Does state that she lives with her daughter. She denies any fever, chills or constitutional symptoms. No other questions or concerns today. Allergies Allergy/AdvReac Type Severity Reaction Status Date / Time tramadol Allergy ITCHY Verified 11/03/23 19:15 Home Medications Medication Instructions Recorded Confirmed Type diphenhydramine 25 2 tab PO HS PRN Sleep 08/06/21 11/03/23 History mg-acetaminophen 500 mg tablet (Tylenol PM Extra Strength) vitamins A,C,O-lyuh-xasmfz 4,296 1 cap PO BID 08/06/21 11/03/23 History mcg-226 mg-90 mg capsule (PreserVision AREDS) pravastatin 40 mg tablet 40 mg PO DAILY #90 tabs 02/10/23 11/03/23 Rx acetaminophen 500 mg tablet 1,000 mg PO Q6H PRN Pain 04/02/23 11/03/23 History (Tylenol Extra Strength) metoprolol succinate 25 mg 25 mg PO QAM #90 tabs 05/04/23 11/03/23 Rx tablet,extended release 24 hr ropinirole 0.25 mg tablet 0.25 mg PO HS #90 tabs 05/19/23 11/03/23 Rx ferrous sulfate 325 mg (65 mg 325 mg PO DAILY #90 tabs 07/05/23 11/03/23 Rx iron) tablet (Iron (ferrous sulfate)) amiodarone 200 mg tablet 200 mg PO QAM #90 tabs 07/30/23 11/03/23 Rx magnesium oxide 400 mg (241.3 mg 400 mg PO BID #180 tabs 07/30/23 11/03/23 Rx magnesium) tablet duloxetine 60 mg capsule,delayed 60 mg PO QAM #90 caps 08/03/23 11/03/23 Rx release buspirone 5 mg tablet 5 mg PO BID #180 tabs 08/27/23 11/03/23 Rx metoclopramide HCl 5 mg tablet 5 mg PO QID #120 tabs 09/13/23 11/03/23 Rx omeprazole 40 mg capsule,delayed 40 mg PO QAM #90 caps 09/27/23 11/03/23 Rx release duloxetine 30 mg capsule,delayed 30 mg PO QPM #90 caps 09/30/23 11/03/23 Rx release famotidine 40 mg tablet 40 mg PO HS #90 tabs 09/30/23 11/03/23 Rx Prevagen 1 tab PO DAILY 11/03/23 11/03/23 History apixaban 2.5 mg tablet (Eliquis) 2.5 mg PO .HOLD 11/03/23 11/03/23 History Past Med/Surg History Problem List (Updated 11/04/23 @ 08:42 by AUSTEN Nails) Fracture, tibial plateau (Acute ~11/03/23) left knee- comminuted, intra-articular and depressed lateral tibial plateau fracture with fracture extension into the tibial spines and lateral proximal tibial metadiaphysis. 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 (Acute) Closed head injury (Acute) Pelvic pressure in female Recurrent UTI Hx of delirium Urinary incontinence Ambulatory dysfunction Venous insufficiency of both lower extremities Chronic anticoagulation Vitamin D deficiency Osteoporosis Osteoarthritis Macular degeneration LVH (left ventricular hypertrophy) Lumbar spinal stenosis Diastolic dysfunction Anemia Scoliosis Hearing difficulty Medical History Urinary tract infection due to extended-spectrum beta lactamase (ESBL)-producing Klebsiella COVID-19 virus infection Restless leg Closed rib fracture (~03/06/22) Pleural effusion, bilateral (01/2022) s/p chest tube placement Fracture, tibia and fibula, proximal Hematoma of right lower extremity Fracture of greater trochanter of right femur Closed hip fracture (~06/09/21) Hypercholesterolemia PAF (paroxysmal atrial fibrillation) Grief Loss of spouse August 2018 Depression Diaphragmatic hernia GERD without esophagitis Diverticulosis Disc degeneration, lumbar Cystic thyroid nodule Chronic kidney disease, stage III (moderate) Anxiety Mitral regurgitation MODERATE Rheumatoid arthritis Hypertension Surgical History Status post Adilia fundoplication (01/2022) modified toupet fundoplication and gastropexy History of repair of hiatal hernia (01/2022) EGD w/ reduction of hernia S/P ORIF (open reduction internal fixation) fracture (~03/2021) TFN nail L hip post intertrochanteric fx Knee arthropathy (10/2017) w/ medial meniscus repair in 10/2017 S/P thyroid surgery (01/2019) 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 Status post arthroscopic partial medial meniscectomy (11/02/17) R knee H/O bilateral oophorectomy (04/2017) B/L SALPINGOOPHORECTOMY= 04/12/17= GRADE VIEW 2, MAC 3, ETT 7.5 AT [facility] History of hysterectomy (1988) History of total hip arthroplasty RIGHT History of tooth extraction History of tonsillectomy History of adenoidectomy History of cataract surgery RIGHT/LEFT Family History Father Coronary heart disease Colorectal cancer Kidney disease Lung disease Mother Coronary heart disease Myocardial infarction Gallbladder disease Sister Diabetes Colorectal cancer Family/Other Diabetes Denies family history of Ovarian cancer Prostate cancer Breast cancer Social History Smoking Status: Never smoker Second Hand Exposure: No; Do You Dip or Chew Tobacco: No; Hx Alcohol Use: No Hx Substance Use: No Preferred Language: Gambian Communication Ability: Effective Visual Impairment: No Limitations Hearing Ability: Use of Hearing Aid Curriculum Writer Required: No Beliefs That Will Affect Care: None marital status: / marital status details: passed August 2018 Current Living Situation: Family Current Living Situation Comment: [facility] 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 Physical Exam General: Alert and oriented. In no acute distress. She is resting comfortably in her hospital bed. Constitutional WD/WN, vitals as above Musculoskeletal Left knee: Joint effusion noted. She is mildly tender along the lateral tibial plateau. No tenderness to the medial joint space or tibial plateau. She is able to perform some range of motion of her knee. She is able to flex to about 45 degrees. She feels weak about at this point. Sensation intact. Distal pulses palpated. Cap refill less than 3 seconds. She has full range of motion of the left ankle and toes. Psychiatric A+Ox3, euthymic affect Results & Data Results & Data Diagnostic Findings Did personally review both imaging studies below, the left knee CT as well as left knee x-ray. There does seem to be a lateral tibial plateau fracture with some depression. Agree with the readings below. Left knee CT on 11/03/23 IMPRESSION: 1. Acute, comminuted, intra-articular and depressed lateral tibial plateau fracture with fracture extension into the tibial spines and lateral proximal tibial metadiaphysis. 2. Small joint effusion. Left knee xray on 11/03/23: IMPRESSION: 1. Limited exam secondary to positioning. Consideration could be made for follow-up frontal and lateral views. 2. No definite acute fracture or dislocation identified on this limited study. Ill-defined linear lucency projected over the tibial spines is favored to be artifactual. 3. Suprapatellar soft tissue swelling with probable small joint effusion. PG Care Time/CCT Total # of Minutes Spent Total Time Spent with Patient: Total time spent is greater than 50% in coordination of care (as documented) at patient's floor/unit and/or counseling patient: Coding Level of Care Code 27240 IN/OBS CONSULT LVL 4,60M Diagnoses Fracture of tibial plateau, closed S82.142A Encounter type: initial encounter Laterality: left (1) Fracture of tibial plateau, closed Encounter type: initial encounter Laterality: left Qualified Code(s): S82.142A - Displaced bicondylar fracture of left tibia, initial encounter for closed fracture
[2023-11-04 08:15] LABS: Basophils # (auto) 0.04 K/uL (0.00-0.20); Basophils % (auto) 0.5 %; Eosinophils # (auto) 0.19 K/uL (0.00-0.50); Eosinophils % (auto) 2.5 %; Hemoglobin 11.4 g/dl (12.0-16.0); Immature Granulocytes # (auto) 0.02 K/uL (0.01-0.20); Immature Granulocytes % (auto) 0.3 %; Lymphocytes # (auto) 1.59 K/uL (1.20-3.40); Lymphocytes % (auto) 21.2 %; Mean Corpuscular Hemoglobin 31.8 pg (25.0-34.0); Mean Corpuscular Hgb Conc 31.7 g/dL (32.0-36.0); Mean Corpuscular Volume 100.6 fL (80.0-100.0); Mean Platelet Volume 9.4 fL (9.4-12.4); Monocytes # (auto) 0.99 K/uL (0.11-0.59); Monocytes % (auto) 13.2 %; Neutrophils # (auto) 4.68 K/uL (1.40-6.50); Neutrophils % (auto) 62.3 %; Platelet Count 159 K/uL (130-400); RDW Coefficient of Variation 13.2 % (11.5-14.5); RDW Standard Deviation 48.9 fL (36.4-46.3); Red Blood Count 3.58 M/uL (4.20-5.40); White Blood Count 7.51 K/ul (4.8-10.8)
[2023-11-04 08:30] LABS: BUN Creatinine Ratio 19.3 (10-20); Calcium 8.5 mg/dl (8.6-10.3); Creatinine Clr Calc Pharmacy 33.5 ml/min; Est GFR (African American) 51.1 ml/min; Est GFR (Non-African American) 44.1 ml/min; Potassium 4.8 mmol/L (3.5-5.1)
[2023-11-04] MEDS: PANTOprazole 40 MG TAB PO SCH (09:13)
[2023-11-04] MEDS: FERROUS SULFATE 325 MG TAB PO SCH (09:13)
[2023-11-04] MEDS: PRAVASTATIN SOD 40 MG TAB PO SCH (09:14)
[2023-11-04] MEDS: METOPROLOL SUCC 25MG EXT REL TAB PO SCH (09:14)
[2023-11-04] MEDS: AMIODARONE 200 MG TAB PO SCH (09:14)
[2023-11-04] MEDS: DULoxetine HCL 60 MG CAP PO SCH (09:14)
[2023-11-04] MEDS: ACETAMINOPHEN 500 MG TAB PO SCH (09:17)
--- NOTE | 2023-11-04 10:20 | Hospitalist Progress Note ---
Date of Service November 04, 2023 Assessment & Plan (1) Fracture, tibial plateau: Plan: Age-related osteoporosis with current pathological fracture, L tibial plateau Patient is a 83 yo who presented to [facility] ED one day after being discharged from ED after she'd visited earlier due to a fall she'd had while attempting to weigh herself. Pt reports leg got stuck in sheet when getting on stretcher with EMS at home and heard a pop. - CT-left knee: Acute, comminuted, intra-articular and depressed lateral tibial plateau fracture with fracture extension into the tibial spines and lateral proximal tibial metadiaphysis. & Small joint effusion. - Orthopedic surgery consulted - conservative management - nonweight bearing x 6 weeks, outpatient follow up in 2 weeks - Pain control: scheduled tylenol, prn oxycodone - PT/OT consulted (2) Closed head injury: Plan: Presented to ER for this on 11/01 after fall while trying to weigh herself. - Head CT at that time: no intracranial hemorrage, left occipital scalp injury with hematoma measuring 2.1cm - Cervical spine CT: no fractures - no focal neurological deficits, area is tender, but pt declining ice. - will continue to hold Eliquis at this time (recommend for 1 week during ER visit) (3) Osteoporosis: Plan: - last DEXA scan cancelled in 2020 - no current treatment has been on prolia in the past, encourage follow up with PCP/rheumatology - check Vit D level (4) PAF (paroxysmal atrial fibrillation): Plan: Continue metoprolol Eliquis Held as above Plan Chronic stable medical problems: * Mental health - continue buspirone and cymbalta * GERD - continue PPI and pepcid and reglan * HLD - continue statin * RLS - contiue requip Dispo: continued inpatient stay, pending PT/OT evals Dvt proph: eliquis held, SCDs Offered to update family 11/03, pt declined Admission and Anticipated Discharge Date Admission Date: November 03, 2023 Supervising Physician Co-Signing Physician Notes PA Supervision Note: I did not personally see or examine the patient today, but I verified all clemente points of BRIDGETT Bautista's assessment and plan with the following exceptions/additions: Probably could resume Eliquis in next few days and monitor hematoma for enlargement. Fortunately, she is in a NSR on ECG at this time Subjective Patient seen lying in bed, leg pain is well controlled at this time. Was given tylenol recently. Leg twisted weird while getting on stretcher at home with EMS no recent illness symptoms at home, fevers or chills, changes in appetite or bowel habits. Review of Systems Review of Systems: All systems reviewed & are unremarkable except as noted in Subjective Physical Exam Physical Exam: General: NAD, VS as above HEENT: known bruising over left posterior scalp, no active bleeding Resp: normal respiratory effort, lungs clear to auscultation CV: RRR, no murmur, Abd: normal bowel sounds, non tender, no hepatosplenomegaly Extremities: uce over left knee, mild edema. Tender to palpation superiorly. Able to move toes distally, palpable pulses Neuro: A&O x3, Skin: intact, no lesions noted Results & Data Results & Data Vital Signs (Past 12 Hours) Vital Signs Temp Pulse Pulse Pulse Resp BP BP 11/04/23 07:17 36.5 C 66 16 131/75 11/04/23 02:20 36.5 C 64 18 146/80 H 11/04/23 00:31 62 11/04/23 00:20 36.5 C 62 16 111/57 L 11/03/23 22:30 63 16 117/59 L Pulse Ox O2 Del Method 11/04/23 07:17 95 Room Air 11/04/23 02:20 96 Room Air 11/04/23 00:31 11/04/23 00:20 93 Room Air 11/03/23 22:30 93 Room Air Laboratory Results CBC and chemistry reviewed Diagnostic Findings knee xray and CT reviewed PG Care Time/CCT Total # of Minutes Spent Total Time Spent with Patient: Total time spent is greater than 50% in coordination of care (as documented) at patient's floor/unit and/or counseling patient: Coding Level of Care Code 30298 SUB INP/OBS CARE 3/50MIN Diagnoses Fracture, tibial plateau S82.143A Closed head injury S09.90XA Encounter type: initial encounter Osteoporosis M81.0 PAF (paroxysmal atrial fibrillation) I48.0 (2) Closed head injury Encounter type: initial encounter Qualified Code(s): S09.90XA - Unspecified injury of head, initial encounter
[2023-11-04] MEDS: oxyCODONE HCL IR 5 MG TAB (IMMEDIATE RELEASE) PO PRN (20:40)
[2023-11-05 06:20] LABS: Basophils # (auto) 0.03 K/uL (0.00-0.20); Basophils % (auto) 0.4 %; Eosinophils # (auto) 0.26 K/uL (0.00-0.50); Eosinophils % (auto) 3.5 %; Hematocrit (blood only) 33.1 % (37.0-47.0); Hemoglobin 10.8 g/dl (12.0-16.0); Immature Granulocytes # (auto) 0.03 K/uL (0.01-0.20); Immature Granulocytes % (auto) 0.4 %; Lymphocytes # (auto) 2.03 K/uL (1.20-3.40); Lymphocytes % (auto) 27.5 %; Mean Corpuscular Hgb Conc 32.6 g/dL (32.0-36.0); Mean Corpuscular Volume 98.2 fL (80.0-100.0); Mean Platelet Volume 9.5 fL (9.4-12.4); Monocytes # (auto) 0.79 K/uL (0.11-0.59); Monocytes % (auto) 10.7 %; Neutrophils # (auto) 4.23 K/uL (1.40-6.50); Neutrophils % (auto) 57.5 %; Platelet Count 173 K/uL (130-400); RDW Standard Deviation 47.1 fL (36.4-46.3); Red Blood Count 3.37 M/uL (4.20-5.40); White Blood Count 7.37 K/ul (4.8-10.8)
[2023-11-05 06:25] LABS: BUN Creatinine Ratio 20.6 (10-20); Calcium 8.2 mg/dl (8.6-10.3); Creatinine Clr Calc Pharmacy 30.3 ml/min; Est GFR (African American) 45.3 ml/min; Est GFR (Non-African American) 39.1 ml/min; Potassium 4.9 mmol/L (3.5-5.1)
[2023-11-05] MEDS: SODIUM CHLORIDE 0.9% 500 ML IV SCH (08:02)
--- NOTE | 2023-11-05 12:34 | Hospitalist Progress Note ---
Date of Service November 05, 2023 Assessment & Plan (1) Fracture, tibial plateau: Plan: Patient is a 83 yo who presented to [facility] ED one day after being discharged from ED after she'd visited earlier due to a fall she'd had while attempting to weigh herself. Pt reports leg got stuck in sheet when getting on stretcher with EMS at home and heard a pop. - CT-left knee: Acute, comminuted, intra-articular and depressed lateral tibial plateau fracture with fracture extension into the tibial spines and lateral proximal tibial metadiaphysis. & Small joint effusion. - Orthopedic surgery consulted - conservative management - non-weight bearing x 6 weeks, outpatient follow up in 2 weeks - Pain control: scheduled Tylenol, prn oxycodone - PT/OT consulted: Pending evaluation, follow up recommendations regarding disposition. -Pending PT/OT recomendations prior to discharge disposition -Age-related osteoporosis with current pathological fracture, L tibial plateau (2) Closed head injury: Plan: Presented to ER for this on 11/01 after fall while trying to weigh herself. - Head CT at that time: no intracranial hemorrhage, left occipital scalp injury with hematoma measuring 2.1cm - Cervical spine CT: no fractures - no focal neurological deficits, area is tender, but pt declining ice. - will continue to hold Eliquis at this time (recommend for 1 week during ER visit) Discussed at length with patient need to resume in 1 week post presentation (3) Osteoporosis: Plan: -last DEXA scan cancelled in 2020 -no current treatment has been on prolia in the past -encourage follow up with PCP/rheumatology -Vit D level 32: Start po supplement (4) PAF (paroxysmal atrial fibrillation): Plan: Continue metoprolol Eliquis Held as above Monitor HR closely (5) HANNAH (acute kidney injury): Plan: Slight HANNAH noted Patient with poor po intake yesterday Start gentle hydration Monitor BMP Avoid nephrotoxic agents Plan Chronic stable medical problems: * Mental health - continue buspirone and cymbalta * GERD - continue PPI and pepcid and reglan * HLD - continue statin * RLS - continue requip Dispo: continued inpatient stay, pending PT/OT evaluations Dvt proph: eliquis held- may resume 1 week post ER evaluation, SCDs Called and updated Sarah over the phone per patient's request Admission and Anticipated Discharge Date Admission Date: November 03, 2023 Subjective Patient seen and evaluated bedside Patient reports pain well controlled this AM Denies chest pain, palpitations, SOB, fevers, chills, nausea or vomiting Patient is pending working with PT/OT Review of Systems Review of Systems: Negative unless indicated in HPI Physical Exam Physical Exam: General: NAD, VS as above HEENT: known bruising over left posterior scalp, no active bleeding Resp: normal respiratory effort, lungs clear to auscultation CV: RRR, no murmur, Abd: normal bowel sounds, non tender, no hepatosplenomegaly Extremities: Donald over left knee, mild edema. Tender to palpation superiorly. Able to move toes distally, palpable pulses Neuro: A&O x3 Skin: intact, no lesions noted Results & Data Results & Data Vital Signs (Past 12 Hours) Vital Signs Temp Pulse Resp BP Pulse Ox O2 Del Method 11/05/23 07:30 36.7 C 60 18 107/66 92 Room Air PG Care Time/CCT Total # of Minutes Spent Total Time Spent with Patient: Total time spent is greater than 50% in coordination of care (as documented) at patient's floor/unit and/or counseling patient: Coding Level of Care Code 90159 SUB INP/OBS CARE 2/35MIN Diagnoses Fracture, tibial plateau S82.143A Closed head injury S09.90XA Encounter type: initial encounter Osteoporosis M81.0 PAF (paroxysmal atrial fibrillation) I48.0 HANNAH (acute kidney injury) N17.9 (2) Closed head injury Encounter type: initial encounter Qualified Code(s): S09.90XA - Unspecified injury of head, initial encounter
--- NOTE | 2023-11-05 18:40 | Electrocardiogram Report ---
Test Reason : Blood Pressure : / mmHG Vent. Rate : 067 BPM Atrial Rate : 067 BPM P-R Int : 216 ms QRS Dur : 094 ms QT Int : 432 ms P-R-T Axes : 013 -23 102 degrees QTc Int : 456 ms Sinus rhythm with 1st degree A-V block with occasional Premature ventricular complexes Possible Anterior infarct , age undetermined Abnormal ECG When compared with ECG of 05-MAR-2022 19:23, Premature ventricular complexes are now Present Nonspecific T wave abnormality no longer evident in Inferior leads T wave inversion less evident in Lateral leads Confirmed by Atif Pryor ([id number]) on 11/05/2023 6:40:07 PM Referred By: REFERRED SELF Confirmed By:Atif Pryor
[2023-11-06] MEDS: POLYETHYLENE (MIRALAX) 17 GM PACK PO PRN (05:32)
[2023-11-06 07:41] LABS: Basophils # (auto) 0.03 K/uL (0.00-0.20); Basophils % (auto) 0.4 %; Eosinophils # (auto) 0.24 K/uL (0.00-0.50); Hematocrit (blood only) 34.1 % (37.0-47.0); Hemoglobin 11.1 g/dl (12.0-16.0); Immature Granulocytes # (auto) 0.02 K/uL (0.01-0.20); Immature Granulocytes % (auto) 0.3 %; Lymphocytes # (auto) 1.32 K/uL (1.20-3.40); Lymphocytes % (auto) 16.6 %; Mean Corpuscular Hemoglobin 31.9 pg (25.0-34.0); Mean Corpuscular Hgb Conc 32.6 g/dL (32.0-36.0); Mean Platelet Volume 9.3 fL (9.4-12.4); Monocytes # (auto) 0.79 K/uL (0.11-0.59); Monocytes % (auto) 9.9 %; Neutrophils # (auto) 5.55 K/uL (1.40-6.50); Neutrophils % (auto) 69.8 %; Platelet Count 185 K/uL (130-400); RDW Coefficient of Variation 12.9 % (11.5-14.5); RDW Standard Deviation 46.5 fL (36.4-46.3); Red Blood Count 3.48 M/uL (4.20-5.40); White Blood Count 7.95 K/ul (4.8-10.8)
[2023-11-06] MEDS: CHOLECALCIFEROL 125 MCG (5,000 UNITS) TAB PO SCH (07:55)
[2023-11-06 08:02] LABS: BUN Creatinine Ratio 20.5 (10-20); Calcium 8.6 mg/dl (8.6-10.3); Creatinine Clr Calc Pharmacy 34.1 ml/min; Est GFR (African American) 52.2 ml/min; Est GFR (Non-African American) 45.1 ml/min; Potassium 5.1 mmol/L (3.5-5.1)
[2023-11-06] MEDS: DOCUSATE SODIUM 100 MG CAP PO SCH (09:45)
[2023-11-06] MEDS: SENNA 8.6 MG TAB PO SCH (11:05)
--- NOTE | 2023-11-06 12:31 | Hospitalist Progress Note ---
Date of Service November 06, 2023 Assessment & Plan (1) Fracture, tibial plateau: Plan: Patient is a 83 yo who presented to [facility] ED one day after being discharged from ED after she'd visited earlier due to a fall she'd had while attempting to weigh herself. Pt reports leg got stuck in sheet when getting on stretcher with EMS at home and heard a pop. -Age-related osteoporosis with current pathological fracture, L tibial plateau - CT-left knee: Acute, comminuted, intra-articular and depressed lateral tibial plateau fracture with fracture extension into the tibial spines and lateral proximal tibial metadiaphysis. & Small joint effusion. - Orthopedic surgery consulted - conservative management - non-weight bearing x 6 weeks, outpatient follow up in 2 weeks - Pain control: scheduled Tylenol, prn oxycodone - PT/OT consulted:Recommendations appreciated- recommend rehab. -Discussed with family- more open to the idea of rehab. -Discussed with social staff worker will meet with patient and family regarding making referrals to facilities (2) Closed head injury: Plan: Presented to ER for this on 11/01 after fall while trying to weigh herself. - Head CT at that time: no intracranial hemorrhage, left occipital scalp injury with hematoma measuring 2.1cm - Cervical spine CT: no fractures - no focal neurological deficits, area is tender, but pt declining ice. - will continue to hold Eliquis at this time (recommend for 1 week during ER visit) Discussed at length with patient need to resume in 1 week post presentation (3) Osteoporosis: Plan: -last DEXA scan cancelled in 2020 -no current treatment has been on prolia in the past -encourage follow up with PCP/rheumatology to resume therapy -Vit D level 32: Started on po supplement (4) PAF (paroxysmal atrial fibrillation): Plan: -Continue metoprolol -Eliquis Held as above- for resumption for 7 days post fall -Monitor HR closely (5) HANNAH (acute kidney injury): Plan: -Slight HANNAH noted -Patient with poor po intake yesterday -Start gentle hydration -Monitor BMP -Avoid nephrotoxic agents Plan Chronic stable medical problems: * Mental health - continue buspirone and Cymbalta * GERD - continue PPI and pepcid and reglan * HLD - continue statin * RLS - continue requip Dispo: continued inpatient stay pending rehab placement Dvt proph: eliquis held- august resume 1 week post ER evaluation, SCDs Called and updated Sarah over the phone Admission and Anticipated Discharge Date Admission Date: November 03, 2023 Subjective Patient seen and evaluated bedside This AM patient had some mild abdominal discomfort. On re-evaluation at noon this pain completely resolved. She states she had gas and the pain resolved subsequently On bowel regimen Discussed with patient as well as daughter over the phone- Pt recommendations- they are more open to going to rehab. She denies chest pain, palpitations, SOB, fevers, chills Review of Systems Review of Systems: Negative unless indicated in HPI Physical Exam Physical Exam: General: NAD, VS as above HEENT: known bruising over left posterior scalp, no active bleeding Resp: normal respiratory effort, lungs clear to auscultation CV: RRR, no murmur, Abd: normal bowel sounds, non tender, no hepatosplenomegaly Extremities: Donald over left knee, mild edema. Tender to palpation superiorly. Able to move toes distally, palpable pulses Neuro: A&O x3 Skin: intact, no lesions noted Results & Data Results & Data Vital Signs (Past 12 Hours) Vital Signs Temp Pulse Resp BP Pulse Ox O2 Del Method 11/06/23 07:00 36.9 C 66 16 125/79 92 Room Air PG Care Time/CCT Total # of Minutes Spent Total Time Spent with Patient: Total time spent is greater than 50% in coordination of care (as documented) at patient's floor/unit and/or counseling patient: Coding Level of Care Code 40066 SUB INP/OBS CARE 2/35MIN Diagnoses Fracture, tibial plateau S82.143A Closed head injury S09.90XA Encounter type: initial encounter Osteoporosis M81.0 PAF (paroxysmal atrial fibrillation) I48.0 HANNAH (acute kidney injury) N17.9 (2) Closed head injury Encounter type: initial encounter Qualified Code(s): S09.90XA - Unspecified injury of head, initial encounter
[2023-11-06 13:43] LABS: Appearance Urine Clear (Clear); Bacteria Urine Automated 4+ (None Seen); Bilirubin Urine Negative (Negative); Blood Urine Negative (Negative); Cast Urine Automated 0-2 /lpf (0-2); Color Urine Yellow; Epithelial Cell Urine Auto 0-2 /hpf (0-2); Glucose Urine UA Negative (Negative); Ketones Urine Negative (Negative); Leukocyte Esterase Urine Trace (Negative); Nitrite Urine Negative (Negative); Protein Urine Negative (Negative); RBC Urine Automated 0-2 /hpf (0-2); Specific Gravity Urine 1.016 (1.000-1.030); Urobilinogen Urine Negative (Negative); WBC Urine Automated 0-5 /hpf (0-5)
[2023-11-07] MEDS ORDERED: HEPARIN SOD 5,000 UNIT/0.5 ML VIAL SQ SCH (09:00)
--- NOTE | 2023-11-07 10:54 | Hospitalist Progress Note ---
Date of Service November 07, 2023 Assessment & Plan (1) Fracture, tibial plateau: Plan: Patient is a 83 yo who presented to [facility] ED one day after being discharged from ED after she'd visited earlier due to a fall she'd had while attempting to weigh herself. Pt reports leg got stuck in sheet when getting on stretcher with EMS at home and heard a pop. -Age-related osteoporosis with current pathological fracture, L tibial plateau - CT-left knee: Acute, comminuted, intra-articular and depressed lateral tibial plateau fracture with fracture extension into the tibial spines and lateral proximal tibial metadiaphysis. & Small joint effusion. - Orthopedic surgery consulted - conservative management - non-weight bearing x 6 weeks, outpatient follow up in 2 weeks - Pain control: scheduled Tylenol, prn oxycodone - PT/OT consulted:Recommendations appreciated- recommend rehab. -Discussed with family- discussed with Sarah. She discussed with case management and referrals for rehab sent. -Discussed with social media intern : referrals for rehab sent. (2) Closed head injury: Plan: Presented to ER for this on 11/01 after fall while trying to weigh herself. - Head CT at that time: no intracranial hemorrhage, left occipital scalp injury with hematoma measuring 2.1cm - Cervical spine CT: no fractures - no focal neurological deficits, area is tender, but pt declining ice. - will continue to hold Eliquis at this time (recommend for 1 week during ER visit) Discussed at length with patient need to resume in 1 week post presentation (11/08) (3) Osteoporosis: Plan: -last DEXA scan cancelled in 2020 -no current treatment has been on prolia in the past -encourage follow up with PCP/rheumatology to resume therapy -Vit D level 32: Started on po supplement (4) PAF (paroxysmal atrial fibrillation): Plan: -Continue metoprolol -Eliquis Held as above- for resumption for 7 days post fall (11/08) -Monitor HR closely (5) HANNAH (acute kidney injury): Plan: -Slight HANNAH noted -Now improved with better po intake -Avoid nephrotoxic agents Plan Chronic stable medical problems: * Mental health - continue buspirone and Cymbalta * GERD - continue PPI and pepcid and reglan (per family patient only takes Reglan BID- therefore dose decreased) * HLD - continue statin * RLS - continue requip Dispo: continued inpatient stay pending rehab placement Dvt proph: eliquis held- may resume 1 week post ER evaluation, resume eliquis on 11/08. SCDs Called and updated Sarah over the phone Admission and Anticipated Discharge Date Admission Date: November 03, 2023 Subjective Patient seen and evaluated bedside Overnight patient had an episode of confusion and desaturated when became a bit agitated This AM much calmer. Weaned off the O2, breathing comfortably on room air States knee pain well controlled Eating breakfast at time of evaluation Referrals sent yesterday by case management for rehab Patient denies chest pain, palpitations, SOB, fevers, chills, nausea or vomit ting Review of Systems Review of Systems: As indicated in HPI Physical Exam Physical Exam: General: NAD, VS as above HEENT: known bruising over left posterior scalp, no active bleeding Resp: normal respiratory effort, lungs clear to auscultation CV: RRR, no murmur, Abd: normal bowel sounds, non tender, no hepatosplenomegaly Extremities: Donald over left knee, mild edema. Tender to palpation superiorly. Able to move toes distally, palpable pulses Neuro: A&O x3 Skin: intact, no lesions noted Results & Data Results & Data Vital Signs (Past 12 Hours) Vital Signs Temp Pulse Resp BP Pulse Ox O2 Del Method O2 Flow Rate 11/07/23 07:01 36.5 C 73 18 157/90 H 98 Nasal Cannula 2 11/07/23 02:09 82 L Nasal Cannula 0 11/06/23 23:30 69 94 Room Air PG Care Time/CCT Total # of Minutes Spent Total Time Spent with Patient: Total time spent is greater than 50% in coordination of care (as documented) at patient's floor/unit and/or counseling patient: Coding Level of Care Code 27703 SUB INP/OBS CARE 2/35MIN Diagnoses Fracture, tibial plateau S82.143A Closed head injury S09.90XA Encounter type: initial encounter Osteoporosis M81.0 PAF (paroxysmal atrial fibrillation) I48.0 HANNAH (acute kidney injury) N17.9 (2) Closed head injury Encounter type: initial encounter Qualified Code(s): S09.90XA - Unspecified injury of head, initial encounter
[2023-11-07] MEDS: METOCLOPRAMIDE HCL 5 MG TABLET PO SCH (20:29)
[2023-11-07] MEDS: MELATONIN 3 MG TAB PO PRN (20:30)
[2023-11-08] MEDS ORDERED: HEPARIN SOD 5,000 UNIT/0.5 ML VIAL SQ SCH (09:00)
--- NOTE | 2023-11-08 12:20 | Hospitalist Progress Note ---
Date of Service November 08, 2023 Assessment & Plan (1) Fracture, tibial plateau: Plan: Patient is a 83 yo who presented to [facility] ED one day after being discharged from ED after she'd visited earlier due to a fall she'd had while attempting to weigh herself. Pt reports leg got stuck in sheet when getting on stretcher with EMS at home and heard a pop. -Age-related osteoporosis with current pathological fracture, L tibial plateau - CT-left knee: Acute, comminuted, intra-articular and depressed lateral tibial plateau fracture with fracture extension into the tibial spines and lateral proximal tibial metadiaphysis. & Small joint effusion. - Orthopedic surgery consulted - conservative management - non-weight bearing x 6 weeks, outpatient follow up in 2 weeks - Pain control: scheduled Tylenol, prn oxycodone - PT/OT consulted:Recommendations appreciated- recommend rehab. -awaiting auth for [facility] (2) Closed head injury: Plan: Presented to ER for this on 11/01 after fall while trying to weigh herself. - Head CT at that time: no intracranial hemorrhage, left occipital scalp injury with hematoma measuring 2.1cm - Cervical spine CT: no fractures - no focal neurological deficits, area is tender, but pt declining ice. -Eliquis was held for one week. Resuming 8/6 AM. Patient on 2.5mg PO BID for A fib. (3) Osteoporosis: Plan: -last DEXA scan cancelled in 2020 -no current treatment has been on Prolia in the past -encourage follow up with PCP/rheumatology to resume therapy -Vit D level 32: Started on po supplement (4) PAF (paroxysmal atrial fibrillation): Plan: -Continue metoprolol -Eliquis resuming 8/6 AM -Monitor HR closely (5) HANNAH (acute kidney injury): Plan: -Slight HANNAH noted -Now improved with better po intake -Avoid nephrotoxic agents Plan Chronic stable medical problems: * Mental health - continue buspirone and Cymbalta * GERD - continue PPI and pepcid and reglan (per family patient only takes Reglan BID- therefore dose decreased) * HLD - continue statin * RLS - continue requip Dispo: continued inpatient stay pending rehab placement Dvt proph: Eliquis held- may resume 1 week post ER evaluation, resume Eliquis on 8/6. SCDs Admission and Anticipated Discharge Date Admission Date: November 03, 2023 Supervising Physician Co-Signing Physician Notes The patient was not seen by me. The chart was reviewed. Case discussed with BRIDGETT Yusuf. Agree with assessment and plan Subjective Patient seen and examined this morning at bedside. Patient reports to be doing well today. She does have left leg pain but denies any additional complaints. She denies chest pain SOB. Physical Exam Constitutional: WD/WN, vitals as above Respiratory: normal respiratory effort, lungs clear to auscultation Cardiovascular: RRR, no murmur, no edema Skin: no rashes, warm and dry Psychiatric: A+Ox3, euthymic affect Results & Data Results & Data Vital Signs (Past 12 Hours) Vital Signs Temp Pulse Resp BP Pulse Ox O2 Del Method 11/08/23 12:02 37.0 C 76 16 152/82 H 95 Room Air 11/08/23 07:49 36.5 C 72 17 158/82 H 92 Room Air 11/08/23 07:45 Room Air 11/08/23 01:09 Room Air PG Care Time/CCT Total # of Minutes Spent Total Time Spent with Patient: Total time spent is greater than 50% in coordination of care (as documented) at patient's floor/unit and/or counseling patient: Coding Level of Care Code 81406 SUB INP/OBS CARE 2/35MIN Diagnoses Closed fracture of left tibial plateau, initial encounter S82.142A Encounter type: initial encounter Fracture type: closed Laterality: left Closed head injury S09.90XA Encounter type: initial encounter Age-related osteoporosis with current pathological fracture, initial encounter M80.00XA Encounter type: initial encounter Osteoporosis type: age-related Presence of current pathological fracture: with current pathological fracture PAF (paroxysmal atrial fibrillation) I48.0 HANNAH (acute kidney injury) N17.9 (1) Fracture, tibial plateau Encounter type: initial encounter Fracture type: closed Laterality: left Qualified Code(s): S82.142A - Displaced bicondylar fracture of left tibia, initial encounter for closed fracture (2) Closed head injury Encounter type: initial encounter Qualified Code(s): S09.90XA - Unspecified injury of head, initial encounter (3) Osteoporosis Encounter type: initial encounter Osteoporosis type: age-related Presence of current pathological fracture: with current pathological fracture Qualified Code(s): M80.00XA - Age-related osteoporosis with current pathological fracture, unspecified site, initial encounter for fracture
[2023-11-09] MEDS: APIXABAN 2.5 MG TAB PO SCH (08:21)
--- NOTE | 2023-11-09 11:43 | Hospitalist Progress Note ---
Date of Service November 09, 2023 Assessment & Plan (1) Fracture, tibial plateau: Plan: Patient is a 83 yo who presented to [facility] ED one day after being discharged from ED after she'd visited earlier due to a fall she'd had while attempting to weigh herself. Pt reports leg got stuck in sheet when getting on stretcher with EMS at home and heard a pop. -Age-related osteoporosis with current pathological fracture, L tibial plateau - CT-left knee: Acute, comminuted, intra-articular and depressed lateral tibial plateau fracture with fracture extension into the tibial spines and lateral proximal tibial metadiaphysis. & Small joint effusion. - Orthopedic surgery consulted - conservative management - non-weight bearing x 6 weeks, outpatient follow up in 2 weeks - Pain control: scheduled Tylenol, prn oxycodone - PT/OT consulted:Recommendations appreciated- recommend rehab. -awaiting auth for [facility], family agreed on [facility] if [facility] denied. (2) Closed head injury: Plan: Presented to ER for this on 11/01 after fall while trying to weigh herself. - Head CT at that time: no intracranial hemorrhage, left occipital scalp injury with hematoma measuring 2.1cm - Cervical spine CT: no fractures - no focal neurological deficits, area is tender, but pt declining ice. -Eliquis was held for one week. Resumed 8/6 AM. Patient on 2.5mg PO BID for A fib. (3) Osteoporosis: Plan: -last DEXA scan cancelled in 2020 -no current treatment has been on Prolia in the past -encourage follow up with PCP/rheumatology to resume therapy -Vit D level 32: Started on po supplement (4) PAF (paroxysmal atrial fibrillation): Plan: -Continue metoprolol -Eliquis resumed 8/6 AM -Monitor HR closely (5) HANNAH (acute kidney injury): Plan: -Slight HANNAH noted -Now improved with better po intake -Avoid nephrotoxic agents Plan Chronic stable medical problems: * Mental health - continue buspirone and Cymbalta * GERD - continue PPI and Pepcid and Reglan (per family patient only takes Reglan BID- therefore dose decreased) * HLD - continue statin * RLS - continue requip Dispo: continued inpatient stay pending rehab placement Dvt proph: Eliquis Admission and Anticipated Discharge Date Admission Date: November 03, 2023 Subjective Patient seen and examined this morning. Patient reports to be doing well today. She reports minimal leg pain. Denied chest pain or SOB. Physical Exam Constitutional: WD/WN, vitals as above Eyes: PERRL, conjunctivae normal, anicteric sclerae Respiratory: normal respiratory effort, lungs clear to auscultation Cardiovascular: RRR, no murmur, no edema Skin: no rashes, warm and dry Psychiatric: A+Ox3, euthymic affect Results & Data Results & Data Vital Signs (Past 12 Hours) Vital Signs Temp Pulse Resp BP Pulse Ox O2 Del Method 11/09/23 07:28 36.4 C L 72 16 115/67 92 Room Air PG Care Time/CCT Total # of Minutes Spent Total Time Spent with Patient: Total time spent is greater than 50% in coordination of care (as documented) at patient's floor/unit and/or counseling patient: Coding Level of Care Code 54666 SUB INP/OBS CARE 2/35MIN Diagnoses Closed fracture of left tibial plateau, initial encounter S82.142A Encounter type: initial encounter Fracture type: closed Laterality: left Closed head injury S09.90XA Encounter type: initial encounter Age-related osteoporosis with current pathological fracture, initial encounter M80.00XA Encounter type: initial encounter Osteoporosis type: age-related Presence of current pathological fracture: with current pathological fracture PAF (paroxysmal atrial fibrillation) I48.0 HANNAH (acute kidney injury) N17.9 (1) Fracture, tibial plateau Encounter type: initial encounter Fracture type: closed Laterality: left Qualified Code(s): S82.142A - Displaced bicondylar fracture of left tibia, initial encounter for closed fracture (2) Closed head injury Encounter type: initial encounter Qualified Code(s): S09.90XA - Unspecified injury of head, initial encounter (3) Osteoporosis Encounter type: initial encounter Osteoporosis type: age-related Presence of current pathological fracture: with current pathological fracture Qualified Code(s): M80.00XA - Age-related osteoporosis with current pathological fracture, unspecified site, initial encounter for fracture
[2023-11-10 07:59] VITALS: BP 126/82; PULSE 90; RESP 16; TEMP 98.1; O2SAT 92
--- NOTE | 2023-11-10 10:26 | Discharge Summary ---
Discharge Summary Date of Service November 10, 2023 Principal Dx & Hospital Course #1 = Principal Diagnosis (1) Fracture, tibial plateau: Patient is a 83 yo who presented to [facility] ED one day after being discharged from ED after she'd visited earlier due to a fall she'd had while attempting to weigh herself. Pt reports leg got stuck in sheet when getting on stretcher with EMS at home and heard a pop. She underwent a CT of her left knee that revealed an acute comminuted, intra-articular and depressed lateral tibial plateau fracture with fracture extension into the tibial spines and lateral proximal tibial metadiaphysis. Small joint effusion. Orthopedic surgery consulted and conservative management recommended. Patient is non-weight bearing x 6 weeks. She is to follow up with ortho in two weeks from discharge. She was given tylenol and oxycodone as needed for pain. She was discharged to [facility]. (2) Closed head injury: Presented to ER for this on 11/01 after fall while trying to weigh herself. She had a head CT that revealed no intracranial hemorrhage, a left occipital scalp injury with hematoma measuring 2.1cm. Cervical spine was negative for fracture. Eliquis was held for one week and resumed at usual dosing on 8/6. No focal neurological deficits. (3) Osteoporosis: -last DEXA scan cancelled in 2020. She is not on current treatment but has been on Prolia in past. Vitamin D supplementation started. Recommend follow up with PCP/rheumatology to resume therapy. (4) PAF (paroxysmal atrial fibrillation): -Continue metoprolol ,Eliquis resumed 8/6 AM (5) HANNAH (acute kidney injury): -Slight HANNAH noted on admission but improved. Recommended to avoid nephrotoxic agents. -Now improved with better po intake Plan Chronic stable medical problems: * Mental health - continue buspirone and Cymbalta * GERD - continue PPI and Pepcid and Reglan (per family patient only takes Reglan BID- therefore dose decreased) * HLD - continue statin * RLS - continue requip Admission HPI Per Admitting Provider Patient is a 83 yo F w/ a PMHx of ambulatory dysfunction, venous insufficiency, chronic anticoagulation, osteoporosis, vit D deficiency, osteoarthritis, lumbar spinal stenosis, macular degeneration, and hearing difficulty who presented to [facility] ED one day after being discharged after she'd visited earlier due to a fall she'd had while attempting to weigh herself. While getting into a gurney and being placed into an ambulance, patient felt a painless pop in her knee at the time but didn't think much about it. She returned to the ED today after having concerns for a left knee injury. At this time patient only endorses a pain of 1/10 over the lateral joint line of the left knee along with decreased ROM of knee flexion. Discharge Exam Constitutional WD/WN, vitals as above Eyes PERRL, conjunctivae normal, anicteric sclerae Respiratory normal respiratory effort, lungs clear to auscultation Cardiovascular RRR, no murmur, no edema Skin no rashes, warm and dry Psychiatric A+Ox3, euthymic affect Updated Medication List Medication Instructions Recorded Confirmed Type vitamins A,C,J-psss-jsqwsq 4,296 1 cap PO BID 08/06/21 11/03/23 History mcg-226 mg-90 mg capsule (PreserVision AREDS) pravastatin 40 mg tablet 40 mg PO DAILY #90 tabs 02/10/23 11/03/23 Rx metoprolol succinate 25 mg 25 mg PO QAM #90 tabs 05/04/23 11/03/23 Rx tablet,extended release 24 hr ropinirole 0.25 mg tablet 0.25 mg PO HS #90 tabs 05/19/23 11/03/23 Rx ferrous sulfate 325 mg (65 mg 325 mg PO DAILY #90 tabs 07/05/23 11/03/23 Rx iron) tablet (Iron (ferrous sulfate)) amiodarone 200 mg tablet 200 mg PO QAM #90 tabs 07/30/23 11/03/23 Rx magnesium oxide 400 mg (241.3 mg 400 mg PO BID #180 tabs 07/30/23 11/03/23 Rx magnesium) tablet duloxetine 60 mg capsule,delayed 60 mg PO QAM #90 caps 08/03/23 11/03/23 Rx release buspirone 5 mg tablet 5 mg PO BID #180 tabs 08/27/23 11/03/23 Rx metoclopramide HCl 5 mg tablet 5 mg PO QID #120 tabs 09/13/23 11/03/23 Rx omeprazole 40 mg capsule,delayed 40 mg PO QAM #90 caps 09/27/23 11/03/23 Rx release duloxetine 30 mg capsule,delayed 30 mg PO QPM #90 caps 09/30/23 11/03/23 Rx release famotidine 40 mg tablet 40 mg PO HS #90 tabs 09/30/23 11/03/23 Rx Prevagen 1 tab PO DAILY 11/03/23 11/03/23 History apixaban 2.5 mg tablet (Eliquis) 2.5 mg PO .HOLD 11/03/23 11/03/23 History acetaminophen 500 mg tablet 1,000 mg (2 x 500 mg) PO Q8H #30 11/10/23 Rx (Tylenol Extra Strength) tabs oxycodone 5 mg tablet 5 mg PO Q6H PRN pain (scale score 11/10/23 Rx 7-10) #20 tabs Hospital Stay Data Consultations 11/03/23 18:31 ED Decision to Admit Stat 11/03/23 20:44 Consult Orthopedic Surgery Routine Diagnostic Imagining Performed Knee X-Ray 11/03/23 15:43 XR knee LT 1 or 2V routine HISTORY: 83 years-old Female knee injury and pain acute left knee pain COMPARISON: 09/29/2021 TECHNIQUE: 2 views of the left knee FINDINGS: Study is limited secondary to positioning. Arterial calcifications. Demineralized appearance of the bones. Moderate medial and lateral with mild patellofemoral compartment osteoarthritis. Trace joint effusion. No definite acute fracture or dislocation. IMPRESSION: 1. Limited exam secondary to positioning. Consideration could be made for follow-up frontal and lateral views. 2. No definite acute fracture or dislocation identified on this limited study. Ill-defined linear lucency projected over the tibial spines is favored to be artifactual. 3. Suprapatellar soft tissue swelling with probable small joint effusion. ACT 112: Negative or not required by law. The above report was generated using voice recognition software. It may contain grammatical, syntax or spelling errors. Electronically signed by: Ezra Gillis M.D. 11/03/2023 4:[address] 11/03/23 16:47 CT knee LT wo con HISTORY: 83 years-old Female knee injury, pain acute left knee pain COMPARISON: Left knee radiographs of same day TECHNIQUE: Multiple axial CT images of the left knee were obtained without IV contrast. A dose lowering technique was used consistent with the principals of JAILENE. FINDINGS: Demineralized appearance of the bones. There is an acute comminuted intra- articular lateral tibial plateau fracture with articular depression measuring up to approximately 1 cm. Fracture lines extend into the tibial spines. The fracture predominantly involves the mid and anterior aspects of the lateral tibial plateau. The fracture extends into the lateral tibial metadiaphysis on image 216 series 3. The medial tibial plateau appears intact. The distal femur and patella appear intact. No large intra-articular fracture fragments. Arterial calcifications. Tendons and ligaments are not well evaluated by CT technique. Small joint effusion with subcutaneous edema superior to the knee. Arterial calcifications. IMPRESSION: 1. Acute, comminuted, intra-articular and depressed lateral tibial plateau fracture with fracture extension into the tibial spines and lateral proximal tibial metadiaphysis. 2. Small joint effusion. ACT 112: Negative or not required by law. The above report was generated using voice recognition software. It may contain grammatical, syntax or spelling errors. Electronically signed by: Ezra Gillis M.D. 11/03/2023 5:58 PM Pending Results Patient Have Any Pending Studies at Discharge: No Discharge Instructions Given to Patient (Per Discharging Provider) Mrs. Brooke, Ronnie were recently hospitalized following a fall and sustained a tibial plateau fracture of your left leg. You are being discharged to a rehab facility to help improve your strength prior to return home. Please see recommendations below regarding your discharge. 1. Please continue to take Tylenol every 8 hours for pain. 2. Please us Oxycodone 5mg every 6 hours for breakthrough pain. 3. You may resume previous outpatient medications. 4. Follow up with orthopedics in 2 weeks outpatient. Please follow up with PCP within 1-2 weeks. If you develop any worsening left leg pain, redness, or swelling please report back to the ER for further evaluation. Sincerely, Garima Levy PA-C Total Time Total Time Spent Total Time Spent (In Minutes): 42 Total Time Includes: Examination of the Patient, Discharge Planning and Medi cation Reconciliation Supervising Physician Co-Signing Physician Notes The patient was seen and examined. The chart was reviewed. Case discussed with BRIDGETT Yusuf. Agree with assessment and plan, stable for discharge Coding Level of Care Code 76819 INP/OBS DISCH >30 MIN Diagnoses Closed fracture of left tibial plateau, initial encounter S82.142A Encounter type: initial encounter Fracture type: closed Laterality: left Closed head injury S09.90XA Encounter type: initial encounter Age-related osteoporosis with current pathological fracture, initial encounter M80.00XA Encounter type: initial encounter Osteoporosis type: age-related Presence of current pathological fracture: with current pathological fracture PAF (paroxysmal atrial fibrillation) I48.0 HANNAH (acute kidney injury) N17.9
== END 2023-11-10 13:01 | DRG 543 ==
LOC: ED 14:55 → SUATTDRO 20:42 → EDINP 20:42 → 3E 23:55
DX: K21.9 Gastro-esophageal reflux disease without esophagitis; E78.5 Hyperlipidemia, unspecified; H35.30 Unspecified macular degeneration; Z79.899 Other long term (current) drug therapy; G25.81 Restless legs syndrome; R29.6 Repeated falls; W01.10XA Fall on same level from slipping, tripping and stumbling with subsequent striking against unspecified object, initial encounter; M19.90 Unspecified osteoarthritis, unspecified site; Z79.01 Long term (current) use of anticoagulants; M80.062A Age-related osteoporosis with current pathological fracture, left lower leg, initial encounter for fracture; Z88.5 Allergy status to narcotic agent; I12.9 Hypertensive chronic kidney disease with stage 1 through stage 4 chronic kidney disease, or unspecified chronic kidney disease; F32.A Depression, unspecified; Y92.009 Unspecified place in unspecified non-institutional (private) residence as the place of occurrence of the external cause; N18.30 Chronic kidney disease, stage 3 unspecified; M48.061 Spinal stenosis, lumbar region without neurogenic claudication; S00.03XA Contusion of scalp, initial encounter; N17.9 Acute kidney failure, unspecified; I48.0 Paroxysmal atrial fibrillation; F41.9 Anxiety disorder, unspecified; I87.2 Venous insufficiency (chronic) (peripheral); Y93.89 Activity, other specified

== ENCOUNTER 2023-12-09 18:08 | Inpatient (IN) ==
--- NOTE | 2023-12-09 18:20 | Emergency Department Note ---
Impression & Plan Recurrent UTI, Right sided abdominal pain ED Provider Note Provider: Ivan Richter MD DATE OF SERVICE: 12/09/2023 CHIEF COMPLAINT: Lower abdominal pain, back pain, UTI HISTORY OF PRESENT ILLNESS: Patient is a 83-year-old female history of recurrent resistant UTI, spinal stenosis, diastolic dysfunction, paroxysmal atrial fibrillation on Eliquis, venous insufficiency, GERD, CKD presenting here via ambulance from home. Patient today started with right lower quadrant abdominal pain and some worsening chronic low mid back pain. No falls reported. No significant fevers reported but does report nausea. Given some morphine and Zofran en route with EMS and some improvement the nausea and the pain. Noted to be mildly hypoxic on room air for EMS upon arrival and upon arrival here. Not only oxygen. Denies significant chest pain or shortness of breath. Denies cough or cold or sore throat. Did have a urine sample collected from home nursing yesterday and since has taken 1 dose by her report of the Macrobid prescribed. No significant leg swelling reported. Did receive a small IV fluid bolus for EMS. PAST MEDICAL HISTORY: As noted above MEDICATIONS: Reviewed home medications, just darted on Macrobid SOCIAL HISTORY: Lives at home, denies smoking PHYSICAL EXAM: GENERAL: alert and oriented in no acute distress on stretcher Head: normocephalic and atraumatic EYES: No injection, discharge or icterus. EOMI. NECK: Trachea midline. Supple. ENT: Mucous membranes pink and moist. LUNGS: Airway patent. No retractions. Breath sounds clear with good air entry bilaterally. HEART: Regular rate and rhythm. No chest wall tenderness ABDOMEN: Soft mild tenderness to the mid to right lower quadrant. Nonperitoneal. No guarding. No significant flank tenderness. SKIN: Acyanotic, warm, dry, without rashes EXTREMITIES: Without swelling, tenderness or deformity NEUROLOGICAL: No focal deficits. No aphasia. No facial droop or slurred speech. EK bpm sinus rhythm first-degree AV block. Left axis. No PVC or PAC. No acute ST segment elevation or depression. CONTINUOUS CARDIAC MONITORING: was ordered and showed a heart rate of 80s to 90s bpm in sinus rhythm with 1st degree block Patient's laboratory studies and imaging reviewed. Differential includes Appendicitis, infections, diverticulitis, UTI, obstruction, mesenteric ischemia, aortic pathology, inflammatory bowel disease, renal colic, PUD, pancreatitis, biliary pathology, hernia, volvulus, constipation, as well as other pathologies. IMPRESSION/MEDICAL DECISION MAKING: Patient presents with mid to lower right quadrant abdominal pain. Urine culture collected yesterday does appear to show gram-negative. Discussed the pharmacy and given history of ESBL review of microbiology will give a dose of ertapenem here for initial coverage. Basic labs obtained. Will send for CT scan of the abdomen pelvis to look for other acute intra-abdominal pathologies including possible findings concerning for kidney stone, pyelonephritis, bowel obstruction, bowel perforation, colitis, diverticulitis, pancreatitis, or bleeding. He is anticoagulated and doubt VTE with her use of Eliquis. Denies significant chest pain but very minimally hypoxic here. Does not seem significantly fluid over exam but a chest x-ray is ordered. Denies respiratory viral symptoms but a COVID test will be completed. Blood work here shows a leukocytosis 17.3. No anemia. No significant thrombocytopenia. No severe electrolyte abnormalities creatinine not far off previous. Chest x-ray here questions fluid versus pneumonia in the left lower lung on my review and radiology report. No significant electrolyte abnormality or troponin elevation. Procalcitonin not elevated. COVID flu and RSV negative. Ertapenem for the history of resistant UTI should cover most pulmonary pathology. CT the abdomen pelvis per radiology report shows evidence of significant right hydronephrosis and kidney stone present. Without obvious kidney stone per the report. My review the images questions this and discussed with Dr. Pereira of urology who reviewed imaging. Patient does have some rigors but not significant tachycardic or hypotensive at this time. Will avoid additional IV fluids given the findings of some fluid on the lungs on imaging. Patient's pain has improved. Urology reviewed imaging and believes there is a kidney stone in patient was sent for stenting given concerns for infected kidney stone and sepsis. Again additional IV fluids avoided given some findings of fluid overload on imaging here today as the patient did receive several 100 cc of IV fluid for EMS prior to arrival. DIAGNOSIS: Acute UTI, right-sided kidney stone, sepsis DISPOSITION: Hospitalist will evaluate Patient was agreeable with this plan. Past Med/Surg History Problem List (Updated 12/09/23 @ 23:35 by Nahomy Latif MD) Atelectasis Pyelonephritis Hydronephrosis with urinary obstruction due to renal calculus Right kidney stone Obstruction of right kidney Hydronephrosis Right sided abdominal pain (Acute) Fracture, tibial plateau (Acute ~11/03/23) left knee- comminuted, intra-articular and depressed lateral tibial plateau fracture with fracture extension into the tibial spines and lateral proximal tibial metadiaphysis. Fracture of tibial plateau, closed (Acute 11/03/23) left knee- comminuted, intra-articular and depressed lateral tibial plateau fracture with fracture extension into the tibial spines and lateral proximal tibial metadiaphysis from a fall Pelvic pressure in female Recurrent UTI (Acute) Hx of delirium Urinary incontinence Ambulatory dysfunction Venous insufficiency of both lower extremities Chronic anticoagulation Vitamin D deficiency Osteoporosis Osteoarthritis Macular degeneration LVH (left ventricular hypertrophy) Lumbar spinal stenosis Diastolic dysfunction Anemia Scoliosis Hearing difficulty Medical History Urinary tract infection due to extended-spectrum beta lactamase (ESBL)-producing Klebsiella COVID-19 virus infection Restless leg Closed rib fracture (~03/06/22) Pleural effusion, bilateral (01/2022) s/p chest tube placement Fracture, tibia and fibula, proximal Hematoma of right lower extremity Fracture of greater trochanter of right femur Closed hip fracture (~06/09/21) Hypercholesterolemia Grief Loss of spouse August 2018 Depression Diaphragmatic hernia Diverticulosis Disc degeneration, lumbar Cystic thyroid nodule Anxiety Mitral regurgitation MODERATE Rheumatoid arthritis Surgical History Status post Adilia fundoplication (01/2022) modified toupet fundoplication and gastropexy History of repair of hiatal hernia (01/2022) EGD w/ reduction of hernia S/P ORIF (open reduction internal fixation) fracture (~03/2021) TFN nail L hip post intertrochanteric fx Knee arthropathy (10/2017) w/ medial meniscus repair in 10/2017 S/P thyroid surgery (01/2019) 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 Status post arthroscopic partial medial meniscectomy (11/02/17) R knee H/O bilateral oophorectomy (04/2017) B/L SALPINGOOPHORECTOMY= 04/12/17= GRADE VIEW 2, MAC 3, ETT 7.5 AT [facility] History of hysterectomy (1988) History of total hip arthroplasty RIGHT History of tooth extraction History of tonsillectomy History of adenoidectomy History of cataract surgery RIGHT/LEFT Family History Father Coronary heart disease Colorectal cancer Kidney disease Lung disease Mother Coronary heart disease Myocardial infarction Gallbladder disease Sister Diabetes Colorectal cancer Family/Other Diabetes Denies family history of Ovarian cancer Prostate cancer Breast cancer Social History Smoking Status: Never smoker Second Hand Exposure: No; Do You Dip or Chew Tobacco: No; Hx Alcohol Use: No Hx Substance Use: No Preferred Language: Swedish Communication Ability: Effective Visual Impairment: No Limitations Hearing Ability: Use of Hearing Aid Occ Therapy Asst Required: No Beliefs That Will Affect Care: None marital status: / marital status details: passed August 2018 Current Living Situation: Family Current Living Situation Comment: daughter Sarah current occupational status: retired current occupation: [employer] How many Children do You have: 2 Feels Safe at Home: Yes Childhood Exposure to Second-Hand Smoke: No Diet Comment: regular caffeine: Yes (1/2 cup a day) during the past year weight has: decreased > 10 lbs Dental Care, Regularly: Yes Physical Activity Frequency: Daily Seatbelt Use: always Sunscreen Use: No Assistive Devices: Walker and Wheelchair Allergies Allergies Allergy/AdvReac Type Severity Reaction Status Date / Time tramadol Allergy ITCHY Verified 11/26/23 09:50 Home Meds Home Medications Medication Instructions Recorded Confirmed vitamins A,C,G-[id number] 4,296 1 cap PO BID 08/06/21 11/26/23 mcg-226 mg-90 mg capsule (PreserVision AREDS) Prevagen 1 tab PO DAILY 11/03/23 11/26/23 apixaban 2.5 mg tablet (Eliquis) 2.5 mg PO BID 11/26/23 11/26/23 Previous Rx's Medication Instructions Recorded pravastatin 40 mg tablet 40 mg PO DAILY #90 tabs 02/10/23 metoprolol succinate 25 mg 25 mg PO QAM #90 tabs 05/04/23 tablet,extended release 24 hr ropinirole 0.25 mg tablet 0.25 mg PO HS #90 tabs 05/19/23 ferrous sulfate 325 mg (65 mg 325 mg PO DAILY #90 tabs 07/05/23 iron) tablet (Iron (ferrous sulfate)) amiodarone 200 mg tablet 200 mg PO QAM #90 tabs 07/30/23 magnesium oxide 400 mg (241.3 mg 400 mg PO BID #180 tabs 07/30/23 magnesium) tablet duloxetine 60 mg capsule,delayed 60 mg PO QAM #90 caps 08/03/23 release buspirone 5 mg tablet 5 mg PO BID #180 tabs 08/27/23 metoclopramide HCl 5 mg tablet 5 mg PO QID #120 tabs 09/13/23 omeprazole 40 mg capsule,delayed 40 mg PO QAM #90 caps 09/27/23 release duloxetine 30 mg capsule,delayed 30 mg PO QPM #90 caps 09/30/23 release famotidine 40 mg tablet 40 mg PO HS #90 tabs 09/30/23 acetaminophen 500 mg tablet 1,000 mg (2 x 500 mg) PO Q8H #30 11/10/23 (Tylenol Extra Strength) tabs oxycodone 5 mg tablet 5 mg PO Q6H PRN pain (scale score 11/10/23 7-10) #20 tabs nitrofurantoin 100 mg PO BID 7 days #14 caps 12/08/23 monohydrate/macrocrystals 100 mg capsule (Macrobid) Results & Data (ED) Vital Signs Vital Signs - 24 hr 12/09/23 18:08 12/09/23 18:16 12/09/23 18:22 Temperature 36.8 C Temperature Source Oral Pulse Rate 82 81 81 Pulse Rate [Apical] Pulse Rate from SpO2 Sensor Pulse Rhythm [Apical] Respiratory Rate 22 22 Respiratory Effort / Characteristics Non-Labored Respiratory Depth Normal Respiratory Pattern Regular Blood Pressure 174/88 H Blood Pressure [Right Arm] Blood Pressure Mean 116 Blood Pressure Mean [Right Arm] Blood Pressure Position [Right Arm] Pulse Oximetry 89 L 95 Oxygen Delivery Method Room Air Nasal Cannula Oxygen Flow Rate 2.5 Sepsis Recent Fever Within 48 Hours No Sepsis New/Unexplained Change in Mental Status N/A Sepsis Action Taken by Nursing No Action Required 12/09/23 19:00 12/09/23 19:00 12/09/23 19:00 Temperature Temperature Source Pulse Rate Pulse Rate [Apical] Pulse Rate from SpO2 Sensor Pulse Rhythm [Apical] Respiratory Rate Respiratory Effort / Characteristics Respiratory Depth Respiratory Pattern Blood Pressure 160/90 H 160/90 H 160/90 H Blood Pressure [Right Arm] Blood Pressure Mean 122 122 122 Blood Pressure Mean [Right Arm] Blood Pressure Position [Right Arm] Pulse Oximetry Oxygen Delivery Method Oxygen Flow Rate Sepsis Recent Fever Within 48 Hours Sepsis New/Unexplained Change in Mental Status Sepsis Action Taken by Nursing 12/09/23 19:00 12/09/23 19:03 12/09/23 19:21 Temperature Temperature Source Pulse Rate 87 86 Pulse Rate [Apical] Pulse Rate from SpO2 Sensor 88 86 Pulse Rhythm [Apical] Respiratory Rate 19 17 Respiratory Effort / Characteristics Respiratory Depth Respiratory Pattern Blood Pressure 160/90 H Blood Pressure [Right Arm] Blood Pressure Mean 122 Blood Pressure Mean [Right Arm] Blood Pressure Position [Right Arm] Pulse Oximetry 95 96 Oxygen Delivery Method Oxygen Flow Rate Sepsis Recent Fever Within 48 Hours Sepsis New/Unexplained Change in Mental Status Sepsis Action Taken by Nursing 12/09/23 19:30 12/09/23 20:15 12/09/23 20:45 Temperature Temperature Source Pulse Rate 80 83 Pulse Rate [Apical] Pulse Rate from SpO2 Sensor 79 Pulse Rhythm [Apical] Respiratory Rate 18 20 Respiratory Effort / Characteristics Respiratory Depth Respiratory Pattern Blood Pressure 144/82 H Blood Pressure [Right Arm] Blood Pressure Mean 88 Blood Pressure Mean [Right Arm] Blood Pressure Position [Right Arm] Pulse Oximetry 97 Oxygen Delivery Method Oxygen Flow Rate Sepsis Recent Fever Within 48 Hours Sepsis New/Unexplained Change in Mental Status Sepsis Action Taken by Nursing 12/09/23 21:00 12/09/23 21:15 12/09/23 21:17 Temperature Temperature Source Pulse Rate 85 90 Pulse Rate [Apical] Pulse Rate from SpO2 Sensor Pulse Rhythm [Apical] Respiratory Rate 23 19 Respiratory Effort / Characteristics Respiratory Depth Respiratory Pattern Blood Pressure 117/89 Blood Pressure [Right Arm] Blood Pressure Mean 92 Blood Pressure Mean [Right Arm] Blood Pressure Position [Right Arm] Pulse Oximetry Oxygen Delivery Method Oxygen Flow Rate Sepsis Recent Fever Within 48 Hours Sepsis New/Unexplained Change in Mental Status Sepsis Action Taken by Nursing 12/09/23 21:17 12/09/23 21:31 12/09/23 21:36 Temperature Temperature Source Pulse Rate 87 Pulse Rate [Apical] Pulse Rate from SpO2 Sensor Pulse Rhythm [Apical] Respiratory Rate 21 Respiratory Effort / Characteristics Respiratory Depth Respiratory Pattern Blood Pressure 117/89 134/76 Blood Pressure [Right Arm] Blood Pressure Mean 92 90 Blood Pressure Mean [Right Arm] Blood Pressure Position [Right Arm] Pulse Oximetry Oxygen Delivery Method Oxygen Flow Rate Sepsis Recent Fever Within 48 Hours Sepsis New/Unexplained Change in Mental Status Sepsis Action Taken by Nursing 12/09/23 21:48 12/09/23 22:00 12/09/23 22:00 Temperature Temperature Source Pulse Rate 88 Pulse Rate [Apical] Pulse Rate from SpO2 Sensor Pulse Rhythm [Apical] Respiratory Rate 22 Respiratory Effort / Characteristics Respiratory Depth Respiratory Pattern Blood Pressure 127/84 127/84 Blood Pressure [Right Arm] Blood Pressure Mean 95 95 Blood Pressure Mean [Right Arm] Blood Pressure Position [Right Arm] Pulse Oximetry Oxygen Delivery Method Oxygen Flow Rate Sepsis Recent Fever Within 48 Hours Sepsis New/Unexplained Change in Mental Status Sepsis Action Taken by Nursing 12/09/23 22:03 12/09/23 22:32 12/09/23 23:42 Temperature 36.6 C 36.7 C Temperature Source Oral Oral Pulse Rate 93 H Pulse Rate [Apical] 81 82 Pulse Rate from SpO2 Sensor Pulse Rhythm [Apical] Regular Respiratory Rate 19 18 19 Respiratory Effort / Characteristics Non-Labored Spontaneous Non-Labored Spontaneous Respiratory Depth Normal Normal Respiratory Pattern Regular Regular Blood Pressure Blood Pressure [Right Arm] 107/53 L 93/49 L Blood Pressure Mean Blood Pressure Mean [Right Arm] 71 63 Blood Pressure Position [Right Arm] Lying Lying Pulse Oximetry 98 98 Oxygen Delivery Method Oxymask Oxymask Oxygen Flow Rate 8 2 Sepsis Recent Fever Within 48 Hours Sepsis New/Unexplained Change in Mental Status Sepsis Action Taken by Nursing 12/09/23 23:52 Temperature 37 C Temperature Source Oral Pulse Rate Pulse Rate [Apical] 80 Pulse Rate from SpO2 Sensor Pulse Rhythm [Apical] Respiratory Rate 19 Respiratory Effort / Characteristics Non-Labored Spontaneous Respiratory Depth Normal Respiratory Pattern Regular Blood Pressure Blood Pressure [Right Arm] 99/52 L Blood Pressure Mean Blood Pressure Mean [Right Arm] 67 Blood Pressure Position [Right Arm] Lying Pulse Oximetry 94 Oxygen Delivery Method Oxymask Oxygen Flow Rate 2 Sepsis Recent Fever Within 48 Hours Sepsis New/Unexplained Change in Mental Status Sepsis Action Taken by Nursing Laboratory Data 12/09/23 18:39 12/09/23 18:39 Lab Results 12/09/23 12/09/23 12/09/23 Range/Units 18:39 18:40 18:47 WBC 17.34 H (4.8-10.8) K/ul RBC 3.94 L (4.20-5.40) M/uL Hgb 12.7 (12.0-16.0) g/dl POC Hgb 14.3 (12.0-16.0) g/dl Hct 39.6 (37.0-47.0) % POC Hct 42 (37-47) % MCV 100.5 H (80.0-100.0) fL MCH 32.2 (25.0-34.0) pg MCHC 32.1 (32.0-36.0) g/dL RDW Std Deviation 48.3 H (36.4-46.3) fL RDW Coeff of Tyra 12.9 (11.5-14.5) % Plt Count 254 (130-400) K/uL MPV 9.1 L (9.4-12.4) fL Immature Gran % (Auto) 0.5 % Neut % (Auto) 95.9 % Lymph % (Auto) 2.6 % Twiggs % (Auto) 0.6 % Eos % (Auto) 0.2 % Baso % (Auto) 0.2 % Neut # (Auto) 16.63 H (1.40-6.50) K/uL Lymph # (Auto) 0.45 L (1.20-3.40) K/uL Twiggs # (Auto) 0.11 (0.11-0.59) K/uL Eos # (Auto) 0.03 (0.00-0.50) K/uL Baso # (Auto) 0.03 (0.00-0.20) K/uL Immature Gran # (Auto) 0.09 (0.01-0.20) K/uL Toxic Vacuolation 1+ Polychromasia 1+ PT 11.2 (9.0-12.0) Seconds INR 1.0 (0.9-1.1) POC Sodium 137 (135-144) mmol/L Sodium 137 (136-145) mmol/L POC Potassium 4.3 (3.3-5.0) mmol/L Potassium 4.3 (3.5-5.1) mmol/L POC Chloride 100 L (101-112) mmol/L Chloride 101 (98-107) mmol/L Carbon Dioxide 28 (21-32) mmol/L POC Total CO2 25 (24-31) mmol/L Anion Gap 8 (3-11) POC Anion Gap 17.0 (16-25) mmol/L POC BUN 16 (7-18) mg/dl BUN 17 (6-23) mg/dl Creatinine 1.21 H (0.6-1.2) mg/dl POC Creatinine 1.2 (0.6-1.3) mg/dl Est Cr Clr Drug Dosing 32.9 ml/min Est GFR ( Amer) 47.6 ml/min Est GFR (Non-Af Amer) 41.1 ml/min BUN/Creatinine Ratio 14.0 (10-20) Glucose 119 H (70-99(Fasting)) mg/dl POC Glucose (other) 117 H (70-99) mg/dl Calcium 8.8 (8.6-10.3) mg/dl POC Ioniz Calcium Sofia 1.10 L (1.12-1.32) mmol/l Total Bilirubin 0.7 (0.2-1.0) mg/dl AST 16 (13-39) U/L ALT 10 (7-52) U/L Alkaline Phosphatase 138 H (34-104) U/L Troponin I High Sens 12.9 (0-14) pg/ml Total Protein 6.8 (6.0-8.3) gm/dl Albumin 3.8 (3.4-5.0) gm/dl Globulin 3.0 (2.5-4.0) gm/dl Albumin/Globulin Ratio 1.3 (0.9-2) Lipase 13 (11-82) U/L Procalcitonin < 0.02 (0-0.5) ng/ml SARS-CoV-2 (PCR) NEGATIVE (Negative) Influenza Type A (PCR) Negative (Neg) Influenza Type B (PCR) Negative (Neg) RSV (RT-PCR) Negative (Neg) Administered Medications Discontinued Medications Diatrizoate Meglumine (Diatrizoate Meglumine 30% 100ml Vial) 20 ml INSTIL UD ONE Stop: 12/09/23 23:26 Last Admin: 12/09/23 23:26 Dose: 20 ml Documented By: [id number] Ertapenem (Invanz) 10 mls @ 2 mls/min IV NOW STA Stop: 12/09/23 18:24 Last Admin: 12/09/23 19:04 Dose: 2 mls/min Documented By: [email or web address] Ioversol (Optiray 320 100ml) 94 ml IV ONCE ONE Stop: 12/09/23 19:56 Last Admin: 12/09/23 19:56 Dose: 94 ml Documented By: Blyk Imaging Data Radiologist's Impression: Abdomen/Pelvis CT 12/09/23 18:16 Exam(s): CT ABDOMEN + PELVIS With Contrast IV Amt: 94 cc opti 320 EXAM: CT Abdomen and Pelvis With Intravenous Contrast CLINICAL HISTORY: Reason for exam: RLQ pain, back pain, UTI. TECHNIQUE: Axial computed tomography images of the abdomen and pelvis with intravenous contrast. CTDI is 25 mGy and DLP is 1204 mGy-cm. Automated exposure control was utilized for the study. A dose lowering technique was utilized adhering to the principles of ALARA. CONTRAST: Patient received 94 cc opti 320 of IV contrast COMPARISON: CT abdomen/pelvis: 04/02/2023 FINDINGS: Lung bases: Bilateral small/moderate volume pleural effusions with overlying bibasilar consolidation/atelectasis and corresponding alveolointerstitial infiltrates LT>RT, increased since prior comparison. Cardiomegaly. Significant coronary arterial calcified atherosclerosis. An elevated right hemidiaphragm. A hiatal hernia with gastroesophageal reflux, could cause an aspiration pneumonia. ABDOMEN: Liver: Unremarkable. No mass. Gallbladder and bile ducts: A distended gallbladder with multiple small intraluminal gallstones. No ductal dilation. Pancreas: Moderate diffuse pancreatic atrophy. No mass. No ductal dilation. Spleen: Unremarkable. No splenomegaly. Adrenals: A 1.8 x 1.2 cm left adrenal nodule. A 1.7 x 1.0 cm right adrenal nodule Kidneys and ureters: There is a chronic right UPJ obstruction with moderately severely dilated right renal pelvis/right renal collecting system. Right perinephric small fluid/urine collection. Significant right perirenal space fat stranding. Small bilateral renal cortical cysts. Smaller sized kidneys. No solid mass. No left hydronephrosis. Stomach and bowel: Moderate size hiatal hernia with gastroesophageal wall thickening and reflux of fluid. Normal caliber small bowel loops. Moderately large volume stool is seen throughout the colon. Extensive sigmoid diverticulosis. PELVIS: Evaluation of the pelvis is hampered by metallic beam hardening artifact from patient right hip replacement and left proximal femoral orthopedic hardware. Appendix: No acute findings in the region of the appendix. Bladder: Unremarkable. No mass. Reproductive: Prior hysterectomy. ABDOMEN and PELVIS: Intraperitoneal space: Unremarkable. No free air. No significant fluid collection. Bones/joints: Severe lumbar dextroscoliosis and advanced multilevel degenerative thoracolumbar spondylitic changes. No acute fracture. No dislocation. Old healed fractures of bilateral iliopubic rami. Total right hip arthroplasty. Intramedullary caroline and nail fixation of the proximal left femur. Soft tissues: Predominantly right lateral abdominal wall/flank soft tissue edema/anasarca. Vasculature: Atherosclerotic tortuosity/elongation of the normal caliber aortoiliac vasculature. Scattered calcified plaques. Lymph nodes: No enlarged lymph nodes. Other findings: . IMPRESSION: Small/moderate volume bilateral pleural effusions with overlying bibasilar consolidation/atelectasis and corresponding infiltrates LT>RT, increased since prior comparison. A distended gallbladder. Cholelithiasis. Bilateral adrenal glands nodules, probably adenomas. MRI adrenals would be confirmatory. Right UPJ obstruction with moderately severe dilated right renal pelvis/right renal collecting system. Right perinephric small fluid/urine collection. Significant right perirenal space fat stranding. No urinary tract calculi identified. Moderately large volume stool is seen throughout the colon. Extensive sigmoid diverticulosis without definite evidence of acute diverticulitis. Severe lumbar dextroscoliosis, advanced multilevel degenerative spondylosis. Predominantly right lateral abdominal wall edema/anasarca. . Electronically signed by: Moreno Larson MD, DABR 12/09/23 21:03 PM Chest X-Ray 12/09/23 18:17 XR chest 1V portable HISTORY: 83 years-old Female abd pain, hypoxia acute hypoxia COMPARISON: 03/11/2023 TECHNIQUE: AP view of the chest FINDINGS: Cardiac silhouette is enlarged. Mild asymmetric left hilar prominence. Layering left pleural effusion with left basilar consolidation. Pulmonary vascular congestion. No pneumothorax.. Chronic left-sided rib fractures. IMPRESSION: 1. Cardiomegaly with pulmonary vascular congestion. 2. Layering left pleural effusion with left basilar consolidation which may represents atelectasis versus pneumonia. ACT 112: Negative or not required by law. The above report was generated using voice recognition software. It may contain grammatical, syntax or spelling errors. Electronically signed by: Ezra Gillis M.D. 12/09/2023 7:16 PM Discharge Plan Visit Data Chief Complaint: Abdominal Pain Stated Complaint: AB PAIN, BACK PAIN, UTI ED Provider: Ivan Richter Discharge Problem: Recurrent UTI, Right sided abdominal pain Patient Disposition: Being Evaluated by Hospitalist Discharge Instructions Interventions: ED Discharge Assessment Last Done: 12/09/23 22:27 Forms Stand Alone Forms: [facility] Prescriptions Prescriptions: No Action PreserVision AREDS [id number] capsule 1 cap PO BID pravastatin 40 mg tablet 40 mg PO DAILY Qty: 90 2RF metoprolol succinate 25 mg tablet extended release 24 hr 25 mg PO QAM Qty: 90 2RF ropinirole 0.25 mg tablet 0.25 mg PO HS Qty: 90 1RF ferrous sulfate [Iron (ferrous sulfate)] 325 mg (65 mg iron) tablet 325 mg PO DAILY Qty: 90 1RF duloxetine 60 mg capsule,delayed release(DR/EC) 60 mg PO QAM Qty: 90 1RF buspirone 5 mg tablet 5 mg PO BID Qty: 180 2RF metoclopramide HCl 5 mg tablet 5 mg PO QID Qty: 120 2RF omeprazole 40 mg capsule,delayed release(DR/EC) 40 mg PO QAM Qty: 90 3RF famotidine 40 mg tablet 40 mg PO HS Qty: 90 1RF duloxetine 30 mg capsule,delayed release(DR/EC) 30 mg PO QPM Qty: 90 4RF nitrofurantoin monohyd/m-cryst [Macrobid] 100 mg capsule 100 mg PO BID 7 Days Qty: 14 0RF Rx Instructions: must administer with a meal/food amiodarone 200 mg tablet 200 mg PO QAM Qty: 90 3RF magnesium oxide 400 mg (241.3 mg magnesium) tablet 400 mg PO BID Qty: 180 3RF Prevagen 1 tab PO DAILY acetaminophen [Tylenol Extra Strength] 500 mg Tablet 1,000 mg PO Q8H Qty: 30 0RF oxycodone 5 mg Tablet 5 mg PO Q6H PRN (Reason: pain (scale score 7-10)) Qty: 20 0RF Eliquis 2.5 mg tablet 2.5 mg PO BID Referrals Referrals: Kimber Prater DO [Primary Care Provider] -
[2023-12-09 18:58] LABS: Hematocrit (blood only) 39.6 % (37.0-47.0); Hemoglobin 12.7 g/dl (12.0-16.0); Mean Corpuscular Hemoglobin 32.2 pg (25.0-34.0); Mean Corpuscular Hgb Conc 32.1 g/dL (32.0-36.0); Mean Corpuscular Volume 100.5 fL (80.0-100.0); Mean Platelet Volume 9.1 fL (9.4-12.4); Platelet Count 254 K/uL (130-400); RDW Coefficient of Variation 12.9 % (11.5-14.5); RDW Standard Deviation 48.3 fL (36.4-46.3); Red Blood Count 3.94 M/uL (4.20-5.40); White Blood Count 17.34 K/ul (4.8-10.8)
[2023-12-09 19:00] LABS: iSTAT Creatinine 1.2 mg/dl (0.6-1.3); iSTAT Hemoglobin 14.3 g/dl (12.0-16.0); iSTAT Ionized Calcium 1.1 mmol/l (1.12-1.32); iSTAT Potassium 4.3 mmol/L (3.3-5.0)
[2023-12-09] MEDS: ERTAPENEM SODIUM 10 ML IV STA (19:04)
[2023-12-09 19:14] LABS: Albumin Globulin Ratio 1.3 (0.9-2); Albumin Level 3.8 gm/dl (3.4-5.0); Bilirubin,Total 0.7 mg/dl (0.2-1.0); Calcium 8.8 mg/dl (8.6-10.3); Creatinine Clr Calc Pharmacy 32.9 ml/min; Est GFR (African American) 47.6 ml/min; Est GFR (Non-African American) 41.1 ml/min; Potassium 4.3 mmol/L (3.5-5.1); Total Protein 6.8 gm/dl (6.0-8.3)
--- NOTE | 2023-12-09 19:18 | XRay Report ---
XR chest 1V portable HISTORY: 83 years-old Female abd pain, hypoxia acute hypoxia COMPARISON: 03/11/2023 TECHNIQUE: AP view of the chest FINDINGS: Cardiac silhouette is enlarged. Mild asymmetric left hilar prominence. Layering left pleural effusion with left basilar consolidation. Pulmonary vascular congestion. No pneumothorax.. Chronic left-sided rib fractures. IMPRESSION: 1. Cardiomegaly with pulmonary vascular congestion. 2. Layering left pleural effusion with left basilar consolidation which may represents atelectasis ve rsus pneumonia. ACT 112: Negative or not required by law. The above report was generated using voice recognition software. It may contain grammatical, syntax o r spelling errors. Electronically signed by: Ezra Gillis M.D. 12/09/2023 7:16 PM
[2023-12-09 19:20] LABS: Basophils # (auto) 0.03 K/uL (0.00-0.20); Basophils % (auto) 0.2 %; Eosinophils # (auto) 0.03 K/uL (0.00-0.50); Eosinophils % (auto) 0.2 %; Immature Granulocytes # (auto) 0.09 K/uL (0.01-0.20); Immature Granulocytes % (auto) 0.5 %; Lymphocytes # (auto) 0.45 K/uL (1.20-3.40); Lymphocytes % (auto) 2.6 %; Monocytes # (auto) 0.11 K/uL (0.11-0.59); Monocytes % (auto) 0.6 %; Neutrophils # (auto) 16.63 K/uL (1.40-6.50); Neutrophils % (auto) 95.9 %; Polychromasia 1+; Toxic Vacuolation 1+; Troponin I High Sensitivity 12.9 pg/ml (0-14)
[2023-12-09 19:25] LABS: Prothrombin Time 11.2 Seconds (9.0-12.0)
[2023-12-09 19:31] LABS: Influenza A virus by PCR Negative (Neg); Influenza B virus by PCR Negative (Neg); RSV by PCR Negative (Neg); SARS CoV2 RNA(COVID-19) Ceph NEGATIVE (Negative)
[2023-12-09] MEDS: OPTIRAY 320 100ml IV ONE (19:56)
--- NOTE | 2023-12-09 21:04 | CT Scan Report ---
Exam(s): CT ABDOMEN + PELVIS With Contrast IV Amt: 94 cc opti 320 EXAM: CT Abdomen and Pelvis With Intravenous Contrast CLINICAL HISTORY: Reason for exam: RLQ pain, back pain, UTI. TECHNIQUE: Axial computed tomography images of the abdomen and pelvis with intravenous contrast. CTDI is 25 mGy and DLP is 1204 mGy-cm. Automated exposure control was utilized for the study. A dose lowering technique was utilized adhering to the principles of ALARA. CONTRAST: Patient received 94 cc opti 320 of IV contrast COMPARISON: CT abdomen/pelvis: 04/02/2023 FINDINGS: Lung bases: Bilateral small/moderate volume pleural effusions with overlying bibasilar consolidation/atelectasis and corresponding alveolointerstitial infiltrates LT>RT, increased since prior comparison. Cardiomegaly. Significant coronary arterial calcified atherosclerosis. An elevated right hemidiaphragm. A hiatal hernia with gastroesophageal reflux, could cause an aspiration pneumonia. ABDOMEN: Liver: Unremarkable. No mass. Gallbladder and bile ducts: A distended gallbladder with multiple small intraluminal gallstones. No ductal dilation. Pancreas: Moderate diffuse pancreatic atrophy. No mass. No ductal dilation. Spleen: Unremarkable. No splenomegaly. Adrenals: A 1.8 x 1.2 cm left adrenal nodule. A 1.7 x 1.0 cm right adrenal nodule Kidneys and ureters: There is a chronic right UPJ obstruction with moderately severely dilated right renal pelvis/right renal collecting system. Right perinephric small fluid/urine collection. Significant right perirenal space fat stranding. Small bilateral renal cortical cysts. Smaller sized kidneys. No solid mass. No left hydronephrosis. Stomach and bowel: Moderate size hiatal hernia with gastroesophageal wall thickening and reflux of fluid. Normal caliber small bowel loops. Moderately large volume stool is seen throughout the colon. Extensive sigmoid diverticulosis. PELVIS: Evaluation of the pelvis is hampered by metallic beam hardening artifact from patient right hip replacement and left proximal femoral orthopedic hardware. Appendix: No acute findings in the region of the appendix. Bladder: Unremarkable. No mass. Reproductive: Prior hysterectomy. ABDOMEN and PELVIS: Intraperitoneal space: Unremarkable. No free air. No significant fluid collection. Bones/joints: Severe lumbar dextroscoliosis and advanced multilevel degenerative thoracolumbar spondylitic changes. No acute fracture. No dislocation. Old healed fractures of bilateral iliopubic rami. Total right hip arthroplasty. Intramedullary caroline and nail fixation of the proximal left femur. Soft tissues: Predominantly right lateral abdominal wall/flank soft tissue edema/anasarca. Vasculature: Atherosclerotic tortuosity/elongation of the normal caliber aortoiliac vasculature. Scattered calcified plaques. Lymph nodes: No enlarged lymph nodes. Other findings: . IMPRESSION: Small/moderate volume bilateral pleural effusions with overlying bibasilar consolidation/atelectasis and corresponding infiltrates LT>RT, increased since prior comparison. A distended gallbladder. Cholelithiasis. Bilateral adrenal glands nodules, probably adenomas. MRI adrenals would be confirmatory. Right UPJ obstruction with moderately severe dilated right renal pelvis/right renal collecting system. Right perinephric small fluid/urine collection. Significant right perirenal space fat stranding. No urinary tract calculi identified. Moderately large volume stool is seen throughout the colon. Extensive sigmoid diverticulosis without definite evidence of acute diverticulitis. Severe lumbar dextroscoliosis, advanced multilevel degenerative spondylosis. Predominantly right lateral abdominal wall edema/anasarca. . Electronically signed by: Moreno Larson MD, DABR 12/09/23 21:03 PM
[2023-12-09] MEDS ORDERED: MoRPHine SULFATE 2 MG/ML CARP IV PRN (22:10)
--- NOTE | 2023-12-09 22:16 | Anesthesiology Consultation ---
Date of Service December 09, 2023 Assessment & Plan Chart Review Chart Review: Acceptable Risk for Surgery and Patient NOT seen in Pre Admission Testing Consults Requested medical History Surgery Operation Date: 12/09/23 23:30 Proposed Procedures p Cystoscopy, Right Stent Insertion - Enmanuel Pereira DO Height/Weight Height: 5 ft 2 in Weight: 75.4 kg Allergies Allergy/AdvReac Type Severity Reaction Status Date / Time tramadol Allergy ITCHY Verified 11/26/23 09:50 Medications Home Medications Medication Instructions Recorded Confirmed Last Taken vitamins A,C,[id number] 4,296 1 cap PO BID 08/06/21 11/26/23 Unknown mcg-226 mg-90 mg capsule (PreserVision AREDS) pravastatin 40 mg tablet 40 mg PO DAILY #90 tabs 02/10/23 11/26/23 Unknown metoprolol succinate 25 mg 25 mg PO QAM #90 tabs 05/04/23 11/26/23 Unknown tablet,extended release 24 hr ropinirole 0.25 mg tablet 0.25 mg PO HS #90 tabs 05/19/23 11/26/23 Unknown ferrous sulfate 325 mg (65 mg 325 mg PO DAILY #90 tabs 07/05/23 11/26/23 Unknown iron) tablet (Iron (ferrous sulfate)) amiodarone 200 mg tablet 200 mg PO QAM #90 tabs 07/30/23 11/26/23 Unknown magnesium oxide 400 mg (241.3 mg 400 mg PO BID #180 tabs 07/30/23 11/26/23 Unknown magnesium) tablet duloxetine 60 mg capsule,delayed 60 mg PO QAM #90 caps 08/03/23 11/26/23 Unknown release buspirone 5 mg tablet 5 mg PO BID #180 tabs 08/27/23 11/26/23 Unknown metoclopramide HCl 5 mg tablet 5 mg PO QID #120 tabs 09/13/23 11/26/23 Unknown omeprazole 40 mg capsule,delayed 40 mg PO QAM #90 caps 09/27/23 11/26/23 Unknown release duloxetine 30 mg capsule,delayed 30 mg PO QPM #90 caps 09/30/23 11/26/23 Unknown release famotidine 40 mg tablet 40 mg PO HS #90 tabs 09/30/23 11/26/23 Unknown Prevagen 1 tab PO DAILY 11/03/23 11/26/23 Unknown acetaminophen 500 mg tablet 1,000 mg (2 x 500 mg) PO Q8H #30 11/10/23 11/26/23 Unknown (Tylenol Extra Strength) tabs oxycodone 5 mg tablet 5 mg PO Q6H PRN pain (scale score 11/10/23 11/26/23 Unknown 7-10) #20 tabs apixaban 2.5 mg tablet (Eliquis) 2.5 mg PO BID 11/26/23 11/26/23 Unknown nitrofurantoin 100 mg PO BID 7 days #14 caps 12/08/23 Unknown monohydrate/macrocrystals 100 mg capsule (Macrobid) Past Medical History Medical History Urinary tract infection due to extended-spectrum beta lactamase (ESBL)-producing Klebsiella COVID-19 virus infection Restless leg Closed rib fracture (~03/06/22) Pleural effusion, bilateral (01/2022) s/p chest tube placement Fracture, tibia and fibula, proximal Hematoma of right lower extremity Fracture of greater trochanter of right femur Closed hip fracture (~06/09/21) Hypercholesterolemia Grief Loss of spouse August 2018 Depression Diaphragmatic hernia Diverticulosis Disc degeneration, lumbar Cystic thyroid nodule Anxiety Mitral regurgitation MODERATE Rheumatoid arthritis Past Family History Family History Father Coronary heart disease Colorectal cancer Kidney disease Lung disease Mother Coronary heart disease Myocardial infarction Gallbladder disease Sister Diabetes Colorectal cancer Family/Other Diabetes Denies family history of Ovarian cancer Prostate cancer Breast cancer Past Surgical History Surgical History Status post Adilia fundoplication (01/2022) modified toupet fundoplication and gastropexy History of repair of hiatal hernia (01/2022) EGD w/ reduction of hernia S/P ORIF (open reduction internal fixation) fracture (~03/2021) TFN nail L hip post intertrochanteric fx Knee arthropathy (10/2017) w/ medial meniscus repair in 10/2017 S/P thyroid surgery (01/2019) 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 Status post arthroscopic partial medial meniscectomy (11/02/17) R knee H/O bilateral oophorectomy (04/2017) B/L SALPINGOOPHORECTOMY= 04/12/17= GRADE VIEW 2, MAC 3, ETT 7.5 AT [facility] History of hysterectomy (1988) History of total hip arthroplasty RIGHT History of tooth extraction History of tonsillectomy History of adenoidectomy History of cataract surgery RIGHT/LEFT Social History Smoking Status: Never smoker Do You Dip or Chew Tobacco: No Hx Alcohol Use: No Alcohol type: beer alcohol intake frequency: a few times a week Hx Substance Use: No substance use type: does not use Substance Use Type Other:: Oxycontin Last Used Substance: Days (ago) Physical Exam Vital Signs Last Vital Signs Temp 36.8 C 12/09/23 18:08 Pulse 93 H 12/09/23 22:03 Resp 19 12/09/23 22:03 BP 127/84 12/09/23 22:00 Pulse Ox 97 12/09/23 20:15 O2 Del Method Nasal Cannula 12/09/23 18:16 O2 Flow Rate 2.5 12/09/23 18:16 Testing Laboratory Results 12/09/23 18:39 12/09/23 18:39 PT 11.2 Seconds (9.0-12.0) 12/09/23 18:39 INR 1.0 (0.9-1.1) 12/09/23 18:39 12/09/23 18:47 POC Glucose (other) 117 H Electrocardiogram Date: 12/09/23 Findings: + NSR @ 1st degree AV block Echocardiogram Date: 01/12/22 EF: 55 LV Function: normal
[2023-12-09] MEDS ORDERED: ePHEDrine sulfate 50 MG/ML AMP IV PRN (22:17)
[2023-12-09] MEDS ORDERED: fentaNYL citrate PF 100 MCG/2 ML VIAL IV PRN (22:17)
[2023-12-09] MEDS ORDERED: ATROPINE SULFATE 0.1 MG/ML 10ML SYR IV PRN (22:17)
[2023-12-09] MEDS ORDERED: ONDANSETRON INJ 2 MG/ML 2 ML VIAL IV PRN (22:17)
--- NOTE | 2023-12-09 22:33 | Urology Consultation ---
Date of Consultation December 09, 2023 Assessment & Plan (1) Recurrent UTI: (2) Hydronephrosis: (3) Obstruction of right kidney: (4) Right sided abdominal pain: (5) Right kidney stone: Plan Patient presented acutely ill with significant abdominal pain nausea rigors and ill feelings. Patient was evaluated by the ER underwent a urgent CT scan and found to have significant hydronephrosis on the right. On review by the ER staff there was concern for possible stone and urology was consulted urgently due to the patient's presumed sepsis with possible obstructing stone and pyelonephritis. The imaging was independently reviewed by myself. The imaging was fully evaluated. Interpretation my own viewing is that there does appear to be significant obstruction on the right severe perinephric stranding and edematous changes around the kidney. Does appear to have a calcification in the area of the proximal ureter versus UPJ with significant hydronephrosis proximal to this. Patient independently assessed, examined, interviewed, and evaluated. Extensively reviewed with patient findings. Patient having severe pain discomfort in the right side going down into the groin. Has been severe in nature increasing in severity with major bother. Patient's vitals and labs were all reviewed. Pertinent values in the HPI and plan section. Imaging was reviewed interpreted by myself. Agree with read. Vitals were reviewed. Patient is currently afebrile. Is having some mild tachycardia. Significant elevation of the white count to 17.34. Creatinine is also significantly elevated at 1.21. Oxygen saturation was 97% on 2.5 L nasal cannula. Hemoglobin 12.7. Patient's urine was grossly positive with significant signs of infection. Cultures are pending. Concern for developing sepsis with obstructing stone and hydronephrosis. Discussed findings extensively with patient. Reviewed with emergency room provider as well as consulting physicians/team. Patient's complicated medical and surgical history was reviewed and summarized above. Patient has no significant history of stones. Has had previous infection issues. Patient's surgical, medical, social, and family history were all reviewed with pertinent values as above. Please see above for full report. Patient's daughter who had brought her to the ER had just left. Her other daughter had been listed as an emergency contact. They were contacted after discussing with patient different options. Patient requested that it be reviewed with them. Patient is agreeable to move forward with intervention. Has been having severe nausea pain and discomfort which has been increasing in severity. 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 He is currently on broad-spectrum antibiotic coverage. Can likely de-escalate antibiotics after adequate treatment and return of sensitivities and full culture results. Agree with plans for hydration and close monitoring especially if patient develops hypotension and further worsening development of sepsis or septic shock. Discussed patient's current diagnosis as well as concerns and issues. Reviewed different options moving forward. Discussed potential risks and benefits as well as possible options and concerns. Reviewed potential surgical options and interventions. Discussed potential issues and concerns related to intervention. Risk and benefits were discussed extensively with patient and any available family. Discussed potential risks related to anesthesia. Discussed risks of bleeding infection and injury. Extensively reviewed options for intervention. Discussed option to move forward with supportive care broad-spectrum IV antibiotics and hydration. Did discuss possible development of sepsis especially with the possibility of an obstructing stone. Reviewed options for intervention. Discussed extensively with patient procedure including risks and benefits. Discussed risk and benefits of anesthesia. Discussed option to undergo treatment with monitored anesthetic care. Will likely be able to proceed with stent. Patient understands risks of intervention. Discussed most significantly benefit including management of the obstruction and relief of the likely infected urine from the right kidney. Patient is interested in moving forward. Risks and benefits discussed at length for procedure. These include bleeding, infection, injury to surrounding tissues or organs, and risks associated with anesthesia. Patient states understanding and agrees to proceed. Will sign consent and proceed with urgent intervention for pyelonephritis with possible septic stone. Plan for urgent cystoscopy with right stent placement History of Present Illness History of Present Illness Urgent/emergent consultation for acutely ill and septic patient with UTI/Pyelo, discomfort, and ill feelings. Patient developed sudden onset of pain into flank going down and radiating into groin and back in waves comes and goes. Can be severe at times. Lethargy and fatigue likely secondary due to acute illness Discussed and reviewed patient's personal medical, surgical, social, and family history for any history of issues, infections, and disease. Also, discussed patient's medical/surgery history especially related to any history of urinary issues or stone disease. Patient is undergoing supportive management for acute illness and is being admitted to undergo treatment of presumed sepsis Hospitalist has admitted and is undergoing observation with broad spectrum IV antibiotics. Allergies Allergy/AdvReac Type Severity Reaction Status Date / Time tramadol Allergy ITCHY Verified 11/26/23 09:50 Home Medications Medication Instructions Recorded Confirmed Type vitamins A,C,M-dsrt-ilkrcq 4,296 1 cap PO BID 08/06/21 11/26/23 History mcg-226 mg-90 mg capsule (PreserVision AREDS) pravastatin 40 mg tablet 40 mg PO DAILY #90 tabs 02/10/23 11/26/23 Rx metoprolol succinate 25 mg 25 mg PO QAM #90 tabs 05/04/23 11/26/23 Rx tablet,extended release 24 hr ropinirole 0.25 mg tablet 0.25 mg PO HS #90 tabs 05/19/23 11/26/23 Rx ferrous sulfate 325 mg (65 mg 325 mg PO DAILY #90 tabs 07/05/23 11/26/23 Rx iron) tablet (Iron (ferrous sulfate)) amiodarone 200 mg tablet 200 mg PO QAM #90 tabs 07/30/23 11/26/23 Rx magnesium oxide 400 mg (241.3 mg 400 mg PO BID #180 tabs 07/30/23 11/26/23 Rx magnesium) tablet duloxetine 60 mg capsule,delayed 60 mg PO QAM #90 caps 08/03/23 11/26/23 Rx release buspirone 5 mg tablet 5 mg PO BID #180 tabs 08/27/23 11/26/23 Rx metoclopramide HCl 5 mg tablet 5 mg PO QID #120 tabs 09/13/23 11/26/23 Rx omeprazole 40 mg capsule,delayed 40 mg PO QAM #90 caps 09/27/23 11/26/23 Rx release duloxetine 30 mg capsule,delayed 30 mg PO QPM #90 caps 09/30/23 11/26/23 Rx release famotidine 40 mg tablet 40 mg PO HS #90 tabs 09/30/23 11/26/23 Rx Prevagen 1 tab PO DAILY 11/03/23 11/26/23 History acetaminophen 500 mg tablet 1,000 mg (2 x 500 mg) PO Q8H #30 11/10/23 11/26/23 Rx (Tylenol Extra Strength) tabs oxycodone 5 mg tablet 5 mg PO Q6H PRN pain (scale score 11/10/23 11/26/23 Rx 7-10) #20 tabs apixaban 2.5 mg tablet (Eliquis) 2.5 mg PO BID 11/26/23 11/26/23 History nitrofurantoin 100 mg PO BID 7 days #14 caps 12/08/23 Rx monohydrate/macrocrystals 100 mg capsule (Macrobid) Patient History Medical History Urinary tract infection due to extended-spectrum beta lactamase (ESBL)-producing Klebsiella COVID-19 virus infection Restless leg Closed rib fracture (~03/06/22) Pleural effusion, bilateral (01/2022) s/p chest tube placement Fracture, tibia and fibula, proximal Hematoma of right lower extremity Fracture of greater trochanter of right femur Closed hip fracture (~06/09/21) Hypercholesterolemia Grief Loss of spouse August 2018 Depression Diaphragmatic hernia Diverticulosis Disc degeneration, lumbar Cystic thyroid nodule Anxiety Mitral regurgitation MODERATE Rheumatoid arthritis Surgical History Status post Adilia fundoplication (01/2022) modified toupet fundoplication and gastropexy History of repair of hiatal hernia (01/2022) EGD w/ reduction of hernia S/P ORIF (open reduction internal fixation) fracture (~03/2021) TFN nail L hip post intertrochanteric fx Knee arthropathy (10/2017) w/ medial meniscus repair in 10/2017 S/P thyroid surgery (01/2019) 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 Status post arthroscopic partial medial meniscectomy (11/02/17) R knee H/O bilateral oophorectomy (04/2017) B/L SALPINGOOPHORECTOMY= 04/12/17= GRADE VIEW 2, MAC 3, ETT 7.5 AT [facility] History of hysterectomy (1988) History of total hip arthroplasty RIGHT History of tooth extraction History of tonsillectomy History of adenoidectomy History of cataract surgery RIGHT/LEFT Family History Father Coronary heart disease Colorectal cancer Kidney disease Lung disease Mother Coronary heart disease Myocardial infarction Gallbladder disease Sister Diabetes Colorectal cancer Family/Other Diabetes Denies family history of Ovarian cancer Prostate cancer Breast cancer Social History Smoking Status: Never smoker Second Hand Exposure: No; Do You Dip or Chew Tobacco: No; Hx Alcohol Use: No Hx Substance Use: No Preferred Language: [place] Communication Ability: Effective Visual Impairment: No Limitations Hearing Ability: Use of Hearing Aid Prenatal Nurse Required: No Beliefs That Will Affect Care: None marital status: / marital status details: passed August 2018 Current Living Situation: Family Current Living Situation Comment: daughter Sarah current occupational status: retired current occupation: [employer] How many Children do You have: 2 Feels Safe at Home: Yes Childhood Exposure to Second-Hand Smoke: No Diet Comment: regular caffeine: Yes (1/2 cup a day) during the past year weight has: decreased > 10 lbs Dental Care, Regularly: Yes Physical Activity Frequency: Daily Seatbelt Use: always Sunscreen Use: No Assistive Devices: Walker and Wheelchair Review of Systems Review of Systems: All systems reviewed & are unremarkable except as noted in HPI & below Physical Exam Physical Exam: General: Acutely ill. Undergoing management for acute severe infection. Rigors HEENT: Normocephalic Atraumatic. Inspection normal. Cranial Nerves 2-12 Grossly intact. Nares are clear. Neck is supple. Normal inspection of face. Normal inspection of neck. Neurologic: No deficits on inspection. Baseline for motor function and sensory. Psychologic: Anxious, Mildly lethargic. No delirium. Respiratory: Mild labored. No use of accessory muscles. No severe dyspnea. Cardiovascular: tachycardia Skin: [place] and Dry. No rashes or visible lesions. Febrile Extremities: Moving without issues. No motor deficits on inspection Lymphatics: Mild edema Abdomen: Mildly distended. No rebound or guarding. Mild suprapubic/flank tenderness Results & Data Vital Signs (Past 12 Hours) Vital Signs Temp Pulse Resp BP Pulse Ox O2 Del Method O2 Flow Rate 12/09/23 22:03 93 H 19 12/09/23 22:00 127/84 12/09/23 22:00 127/84 12/09/23 21:48 88 22 12/09/23 21:36 87 21 12/09/23 21:31 134/76 12/09/23 21:17 117/89 12/09/23 21:17 117/89 12/09/23 21:15 90 19 12/09/23 21:00 85 23 12/09/23 20:45 83 20 12/09/23 20:15 80 18 97 12/09/23 19:30 144/82 H 12/09/23 19:21 86 17 96 12/09/23 19:03 87 19 95 12/09/23 19:00 160/90 H 12/09/23 19:00 160/90 H 12/09/23 19:00 160/90 H 12/09/23 19:00 160/90 H 12/09/23 18:22 81 12/09/23 18:16 81 22 95 Nasal Cannula 2.5 12/09/23 18:08 36.8 C 82 22 174/88 H 89 L Room Air PG Care Time/CCT Total # of Minutes Spent Total Time Spent with Patient: Total time spent is greater than 50% in coordination of care (as documented) at patient's floor/unit and/or counseling patient: Coding Level of Care Code 22684 INT INP/OBS CARE 3/75MIN Diagnoses Recurrent UTI N39.0 Hydronephrosis N13.30 Obstruction of right kidney N28.89 Right sided abdominal pain R10.9 Right kidney stone N20.0
[2023-12-09] MEDS ORDERED: PROPOFOL IV EMULSION 10 MG/ML 20 ML VIAL IV ONE (22:58)
[2023-12-09] MEDS ORDERED: LIDOCAINE 2% 2 ML VIAL/AMP(20MG/ML) INFIL ONE (22:58)
[2023-12-09] MEDS ORDERED: ONDANSETRON INJ 2 MG/ML 2 ML VIAL ONE (22:58)
[2023-12-09] MEDS ORDERED: fentaNYL citrate PF 100 MCG/2 ML VIAL ONE (22:58)
[2023-12-09] MEDS ORDERED: PHENYLEPHRINE 100MCG/ML 10ML SYR IV ONE (23:05)
--- NOTE | 2023-12-09 23:07 | History & Physical Report ---
Date of Service December 09, 2023 Assessment & Plan (1) Hydronephrosis with urinary obstruction due to renal calculus: Plan: Patient presents with mid to lower right quadrant abdominal pain. Urine culture from yesterday: show gram-negative rods;history of ESBL Leukocytosis 17.3; Procal:Negative Ertapenem started for initial coverage CTAP: Evidence of significant right hydronephrosis and kidney stone present( as per Urology) Distended GB with Cholelithiasis BL adrenal Nodeules; MRI advised. Urgent Urology consult done in ER: She will benefit from urgent stenting; Significant obstruction on the right High likelihood of sepsis. Continue Fluids and Antibiotics O2 at 2l/ min ; goal > 92% (2) Pyelonephritis: Plan: Pyelonephritis vs Kidney change due to Severe obstruction; High likelihood of sepsis. -Patient presents with mid to lower right quadrant abdominal pain. Urine culture from yesterday: show gram-negative rods;history of ESBL Leukocytosis 17.3; Procal:Negative Ertapenem started for initial coverage (3) Recurrent UTI: Plan: Admitted x 2 for UTI in last 6 month Complicated/multidrug resistant UTI D mannose supplementation ongoing as per chart Transportation Supervisor issues: Prolapsed bladder; Topical estrogen sugegsted in past. Transportation Supervisor evaluation was recommended in past; patient can't give more information at current status. Transportation Supervisor note not available on record; Review with patient once patient is stable. (4) PAF (paroxysmal atrial fibrillation): Plan: H/O PAF; EKG in ED: 91 bpm sinus rhythm first-degree AV block. Left axis. No PVC or PAC. No acute ST segment elevation or depression. Continue Telemetry observation ; high risk for new Afib -Home meds for Afib: Metoprolol and Eliquis - Eliquis held for surgery; resume post-operatively as per Uro (5) Atelectasis: Plan: Saturation not maintained in RA; under 2L oxygen Chest X-ray: Left pleural effusion with left basilar consolidation which may represents atelectasis versus pneumonia. Clinically PNE less likely; could be atelactasis given saturation not maintained in RA Rec: Incentive [place] once patient is stable; Repeat Clinical evaluation Plan Disposition Admit to [facility] Diet: NPO for Uro surgery Code status: Full code DVT prevention:She is under Eliquis; currently held for surgery History of Present Illness Chief Complaint: Pain in her right lower andomrn for 1 day Chills for 2 days Primary Care Provider: Kimber Prater DO Brionna is a 83-year-old female history of recurrent resistant UTI, spinal stenosis, diastolic dysfunction, paroxysmal atrial fibrillation on Eliquis, venous insufficiency, GERD, CKD presenting here via ambulance from home. She endorses right lower quadrant abdominal pain which started today morning. It was proceeded ny significant nausea and rigors. She felt unwell since yesterday. She is still nauseous and sleepy when I was in her room, did not want to make more communication as she mentions she feels overwhelmed. She gives H/O recurrent UTI in past and shared me she just want to get rid of it. She mentioned that her urine sample collected from home nursing yesterday and since has taken 1 dose by her report of the Macrobid prescribed. She is well aware that urologic surgery is planned for her today and she agrees with this plan. She shared me she lives with her daughter and she will be here to help her in hospital. She had brought her to the ER and just left. Denies chest pain or shortness of breath. Denies cough or cold or sore throat, vomiting, fever, headache, loss of appetite. PMH: reviewed chart Medication history : reviewed Drug and allergy: Allergic to tramadol; no other she is aware of Living situation: Lives at home with Daughter; recently at rehab though Allergies Allergy/AdvReac Type Severity Reaction Status Date / Time tramadol Allergy ITCHY Verified 11/26/23 09:50 Home Medications Medication Instructions Recorded Confirmed Type vitamins A,C,G-[id number] 4,296 1 cap PO BID 08/06/21 11/26/23 History mcg-226 mg-90 mg capsule (PreserVision AREDS) pravastatin 40 mg tablet 40 mg PO DAILY #90 tabs 02/10/23 11/26/23 Rx metoprolol succinate 25 mg 25 mg PO QAM #90 tabs 05/04/23 11/26/23 Rx tablet,extended release 24 hr ropinirole 0.25 mg tablet 0.25 mg PO HS #90 tabs 05/19/23 11/26/23 Rx ferrous sulfate 325 mg (65 mg 325 mg PO DAILY #90 tabs 07/05/23 11/26/23 Rx iron) tablet (Iron (ferrous sulfate)) amiodarone 200 mg tablet 200 mg PO QAM #90 tabs 07/30/23 11/26/23 Rx magnesium oxide 400 mg (241.3 mg 400 mg PO BID #180 tabs 07/30/23 11/26/23 Rx magnesium) tablet duloxetine 60 mg capsule,delayed 60 mg PO QAM #90 caps 08/03/23 11/26/23 Rx release buspirone 5 mg tablet 5 mg PO BID #180 tabs 08/27/23 11/26/23 Rx metoclopramide HCl 5 mg tablet 5 mg PO QID #120 tabs 09/13/23 11/26/23 Rx omeprazole 40 mg capsule,delayed 40 mg PO QAM #90 caps 09/27/23 11/26/23 Rx release duloxetine 30 mg capsule,delayed 30 mg PO QPM #90 caps 09/30/23 11/26/23 Rx release famotidine 40 mg tablet 40 mg PO HS #90 tabs 09/30/23 11/26/23 Rx Prevagen 1 tab PO DAILY 11/03/23 11/26/23 History acetaminophen 500 mg tablet 1,000 mg (2 x 500 mg) PO Q8H #30 11/10/23 11/26/23 Rx (Tylenol Extra Strength) tabs oxycodone 5 mg tablet 5 mg PO Q6H PRN pain (scale score 11/10/23 11/26/23 Rx 7-10) #20 tabs apixaban 2.5 mg tablet (Eliquis) 2.5 mg PO BID 11/26/23 11/26/23 History nitrofurantoin 100 mg PO BID 7 days #14 caps 12/08/23 Rx monohydrate/macrocrystals 100 mg capsule (Macrobid) Past Med/Surg History Problem List Atelectasis Pyelonephritis Hydronephrosis with urinary obstruction due to renal calculus Right kidney stone Obstruction of right kidney Hydronephrosis Right sided abdominal pain (Acute) Fracture, tibial plateau (Acute ~11/03/23) left knee- comminuted, intra-articular and depressed lateral tibial plateau fracture with fracture extension into the tibial spines and lateral proximal tibial metadiaphysis. Fracture of tibial plateau, closed (Acute 11/03/23) left knee- comminuted, intra-articular and depressed lateral tibial plateau fracture with fracture extension into the tibial spines and lateral proximal tibial metadiaphysis from a fall Pelvic pressure in female Recurrent UTI (Acute) Hx of delirium Urinary incontinence Ambulatory dysfunction Venous insufficiency of both lower extremities Chronic anticoagulation Vitamin D deficiency Osteoporosis Osteoarthritis Macular degeneration LVH (left ventricular hypertrophy) Lumbar spinal stenosis Diastolic dysfunction Anemia Scoliosis Hearing difficulty Medical History Urinary tract infection due to extended-spectrum beta lactamase (ESBL)-producing Klebsiella COVID-19 virus infection Restless leg Closed rib fracture (~03/06/22) Pleural effusion, bilateral (01/2022) s/p chest tube placement Fracture, tibia and fibula, proximal Hematoma of right lower extremity Fracture of greater trochanter of right femur Closed hip fracture (~06/09/21) Hypercholesterolemia Grief Loss of spouse August 2018 Depression Diaphragmatic hernia Diverticulosis Disc degeneration, lumbar Cystic thyroid nodule Anxiety Mitral regurgitation MODERATE Rheumatoid arthritis Surgical History Status post Adilia fundoplication (01/2022) modified toupet fundoplication and gastropexy History of repair of hiatal hernia (01/2022) EGD w/ reduction of hernia S/P ORIF (open reduction internal fixation) fracture (~03/2021) TFN nail L hip post intertrochanteric fx Knee arthropathy (10/2017) w/ medial meniscus repair in 10/2017 S/P thyroid surgery (01/2019) 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 Status post arthroscopic partial medial meniscectomy (11/02/17) R knee H/O bilateral oophorectomy (04/2017) B/L SALPINGOOPHORECTOMY= 04/12/17= GRADE VIEW 2, MAC 3, ETT 7.5 AT [facility] History of hysterectomy (1988) History of total hip arthroplasty RIGHT History of tooth extraction History of tonsillectomy History of adenoidectomy History of cataract surgery RIGHT/LEFT Family History Father Coronary heart disease Colorectal cancer Kidney disease Lung disease Mother Coronary heart disease Myocardial infarction Gallbladder disease Sister Diabetes Colorectal cancer Family/Other Diabetes Denies family history of Ovarian cancer Prostate cancer Breast cancer Social History Smoking Status: Never smoker Second Hand Exposure: No; Do You Dip or Chew Tobacco: No; Hx Alcohol Use: No Hx Substance Use: No Preferred Language: Liberian Communication Ability: Effective Visual Impairment: No Limitations Hearing Ability: Use of Hearing Aid Stove Cleaner Required: No Beliefs That Will Affect Care: None marital status: / marital status details: passed August 2018 Current Living Situation: Family Current Living Situation Comment: lives with her daughter 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 How many Children do You have: 2 Other Information That Helps Us Care for You: No Feels Safe at Home: Yes Childhood Exposure to Second-Hand Smoke: No Diet Comment: regular caffeine: Yes (1/2 cup a day) during the past year weight has: decreased > 10 lbs Dental Care, Regularly: Yes Physical Activity Frequency: Daily Seatbelt Use: always Sunscreen Use: No Assistive Devices: Cane, Denture - Upper and Walker Assistive Devices Comment: States she has been using a walker at home Review of Systems Review of Systems: As per HPI Physical Exam Physical Exam: Constitutional: Well appearing, Looks dehydrated, and distressed Sleeping in propped up position with O2 flowing through canula at 2L/min HEENT: Atraumatic, Normocephalic, No conjunctival injection CVS: S1 S2 no murmur, Regular Rhythm, no LE edema Respiratory: BL decreases air entry on lung bases with NVBS. No rhonchi, w heezes, or crackles. No increased work of breathing GI: Tenderness in Right lower quadrant +, Renal angle tenderness + in right , Left side normal, Normal Bowel sounds + MSK: No gross deformities noted, Muscle power normal in BL UL and LL Skin: Warm, Dry, No rashes Neuro: Alert, Oriented to TPP, No Focal deficit Psych: Mood and Affect congruent, Cooperative on exam Results & Data Results & Data Vital Signs (Past 12 Hours) Vital Signs Temp Pulse Resp BP Pulse Ox O2 Del Method O2 Flow Rate 12/09/23 22:03 93 H 19 12/09/23 22:00 127/84 12/09/23 22:00 127/84 12/09/23 21:48 88 22 12/09/23 21:36 87 21 12/09/23 21:31 134/76 12/09/23 21:17 117/89 12/09/23 21:17 117/89 12/09/23 21:15 90 19 12/09/23 21:00 85 23 12/09/23 20:45 83 20 12/09/23 20:15 80 18 97 12/09/23 19:30 144/82 H 12/09/23 19:21 86 17 96 12/09/23 19:03 87 19 95 12/09/23 19:00 160/90 H 12/09/23 19:00 160/90 H 12/09/23 19:00 160/90 H 12/09/23 19:00 160/90 H 12/09/23 18:22 81 12/09/23 18:16 81 22 95 Nasal Cannula 2.5 12/09/23 18:08 36.8 C 82 22 174/88 H 89 L Room Air Laboratory Results Laboratory Results WBC 17.34 K/ul (4.8-10.8) H 12/09/23 18:39 RBC 3.94 M/uL (4.20-5.40) L 12/09/23 18:39 Hgb 12.7 g/dl (12.0-16.0) 12/09/23 18:39 POC Hgb 14.3 g/dl (12.0-16.0) 12/09/23 18:47 Hct 39.6 % (37.0-47.0) 12/09/23 18:39 POC Hct 42 % (37-47) 12/09/23 18:47 MCV 100.5 fL (80.0-100.0) H 12/09/23 18:39 MCH 32.2 pg (25.0-34.0) 12/09/23 18:39 MCHC 32.1 g/dL (32.0-36.0) 12/09/23 18:39 RDW Std Deviation 48.3 fL (36.4-46.3) H 12/09/23 18:39 RDW Coeff of Tyra 12.9 % (11.5-14.5) 12/09/23 18:39 Plt Count 254 K/uL (130-400) 12/09/23 18:39 MPV 9.1 fL (9.4-12.4) L 12/09/23 18:39 Immature Gran % (Auto) 0.5 % 12/09/23 18:39 Neut % (Auto) 95.9 % 12/09/23 18:39 Lymph % (Auto) 2.6 % 12/09/23 18:39 [place] % (Auto) 0.6 % 12/09/23 18:39 Eos % (Auto) 0.2 % 12/09/23 18:39 Baso % (Auto) 0.2 % 12/09/23 18:39 Neut # (Auto) 16.63 K/uL (1.40-6.50) H 12/09/23 18:39 Lymph # (Auto) 0.45 K/uL (1.20-3.40) L 12/09/23 18:39 [place] # (Auto) 0.11 K/uL (0.11-0.59) 12/09/23 18:39 Eos # (Auto) 0.03 K/uL (0.00-0.50) 12/09/23 18:39 Baso # (Auto) 0.03 K/uL (0.00-0.20) 12/09/23 18:39 Immature Gran # (Auto) 0.09 K/uL (0.01-0.20) 12/09/23 18:39 Toxic Vacuolation 1+ 12/09/23 18:39 Polychromasia 1+ 12/09/23 18:39 PT 11.2 Seconds (9.0-12.0) 12/09/23 18:39 INR 1.0 (0.9-1.1) 12/09/23 18:39 POC Sodium 137 mmol/L (135-144) 12/09/23 18:47 Sodium 137 mmol/L (136-145) 12/09/23 18:39 POC Potassium 4.3 mmol/L (3.3-5.0) 12/09/23 18:47 Potassium 4.3 mmol/L (3.5-5.1) 12/09/23 18:39 POC Chloride 100 mmol/L (101-112) L 12/09/23 18:47 Chloride 101 mmol/L (98-107) 12/09/23 18:39 Carbon Dioxide 28 mmol/L (21-32) 12/09/23 18:39 POC Total CO2 25 mmol/L (24-31) 12/09/23 18:47 Anion Gap 8 (3-11) 12/09/23 18:39 POC Anion Gap 17.0 mmol/L (16-25) 12/09/23 18:47 POC BUN 16 mg/dl (7-18) 12/09/23 18:47 BUN 17 mg/dl (6-23) 12/09/23 18:39 Creatinine 1.21 mg/dl (0.6-1.2) H 12/09/23 18:39 POC Creatinine 1.2 mg/dl (0.6-1.3) 12/09/23 18:47 Est Cr Clr Drug Dosing 32.9 ml/min 12/09/23 18:39 Est GFR ( Amer) 47.6 ml/min 12/09/23 18:39 Est GFR (Non-Af Amer) 41.1 ml/min 12/09/23 18:39 BUN/Creatinine Ratio 14.0 (10-20) 12/09/23 18:39 Glucose 119 mg/dl (70-99(Fasting)) H 12/09/23 18:39 POC Glucose 125 mg/dl (70-99) H 12/10/23 01:20 POC Glucose (other) 117 mg/dl (70-99) H 12/09/23 18:47 Calcium 8.8 mg/dl (8.6-10.3) 12/09/23 18:39 POC Ioniz Calcium Sofia 1.10 mmol/l (1.12-1.32) L 12/09/23 18:47 Total Bilirubin 0.7 mg/dl (0.2-1.0) 12/09/23 18:39 AST 16 U/L (13-39) 12/09/23 18:39 ALT 10 U/L (7-52) 12/09/23 18:39 Alkaline Phosphatase 138 U/L (34-104) H 12/09/23 18:39 Troponin I High Sens 12.9 pg/ml (0-14) 12/09/23 18:39 Total Protein 6.8 gm/dl (6.0-8.3) 12/09/23 18:39 Albumin 3.8 gm/dl (3.4-5.0) 12/09/23 18:39 Globulin 3.0 gm/dl (2.5-4.0) 12/09/23 18:39 Albumin/Globulin Ratio 1.3 (0.9-2) 12/09/23 18:39 Lipase 13 U/L (11-82) 12/09/23 18:39 Procalcitonin < 0.02 ng/ml (0-0.5) 12/09/23 18:39 SARS-CoV-2 (PCR) NEGATIVE (Negative) 12/09/23 18:40 Influenza Type A (PCR) Negative (Neg) 12/09/23 18:40 Influenza Type B (PCR) Negative (Neg) 12/09/23 18:40 RSV (RT-PCR) Negative (Neg) 12/09/23 18:40 Impressions Abdomen/Pelvis CT 12/09/23 18:16 Exam(s): CT ABDOMEN + PELVIS With Contrast IV Amt: 94 cc opti 320 EXAM: CT Abdomen and Pelvis With Intravenous Contrast CLINICAL HISTORY: Reason for exam: RLQ pain, back pain, UTI. TECHNIQUE: Axial computed tomography images of the abdomen and pelvis with intravenous contrast. CTDI is 25 mGy and DLP is 1204 mGy-cm. Automated exposure control was utilized for the study. A dose lowering technique was utilized adhering to the principles of ALARA. CONTRAST: Patient received 94 cc opti 320 of IV contrast COMPARISON: CT abdomen/pelvis: 04/02/2023 FINDINGS: Lung bases: Bilateral small/moderate volume pleural effusions with overlying bibasilar consolidation/atelectasis and corresponding alveolointerstitial infiltrates LT>RT, increased since prior comparison. Cardiomegaly. Significant coronary arterial calcified atherosclerosis. An elevated right hemidiaphragm. A hiatal hernia with gastroesophageal reflux, could cause an aspiration pneumonia. ABDOMEN: Liver: Unremarkable. No mass. Gallbladder and bile ducts: A distended gallbladder with multiple small intraluminal gallstones. No ductal dilation. Pancreas: Moderate diffuse pancreatic atrophy. No mass. No ductal dilation. Spleen: Unremarkable. No splenomegaly. Adrenals: A 1.8 x 1.2 cm left adrenal nodule. A 1.7 x 1.0 cm right adrenal nodule Kidneys and ureters: There is a chronic right UPJ obstruction with moderately severely dilated right renal pelvis/right renal collecting system. Right perinephric small fluid/urine collection. Significant right perirenal space fat stranding. Small bilateral renal cortical cysts. Smaller sized kidneys. No solid mass. No left hydronephrosis. Stomach and bowel: Moderate size hiatal hernia with gastroesophageal wall thickening and reflux of fluid. Normal caliber small bowel loops. Moderately large volume stool is seen throughout the colon. Extensive sigmoid diverticulosis. PELVIS: Evaluation of the pelvis is hampered by metallic beam hardening artifact from patient right hip replacement and left proximal femoral orthopedic hardware. Appendix: No acute findings in the region of the appendix. Bladder: Unremarkable. No mass. Reproductive: Prior hysterectomy. ABDOMEN and PELVIS: Intraperitoneal space: Unremarkable. No free air. No significant fluid collection. Bones/joints: Severe lumbar dextroscoliosis and advanced multilevel degenerative thoracolumbar spondylitic changes. No acute fracture. No dislocation. Old healed fractures of bilateral iliopubic rami. Total right hip arthroplasty. Intramedullary caroline and nail fixation of the proximal left femur. Soft tissues: Predominantly right lateral abdominal wall/flank soft tissue edema/anasarca. Vasculature: Atherosclerotic tortuosity/elongation of the normal caliber aortoiliac vasculature. Scattered calcified plaques. Lymph nodes: No enlarged lymph nodes. Other findings: . IMPRESSION: Small/moderate volume bilateral pleural effusions with overlying bibasilar consolidation/atelectasis and corresponding infiltrates LT>RT, increased since prior comparison. A distended gallbladder. Cholelithiasis. Bilateral adrenal glands nodules, probably adenomas. MRI adrenals would be confirmatory. Right UPJ obstruction with moderately severe dilated right renal pelvis/right renal collecting system. Right perinephric small fluid/urine collection. Significant right perirenal space fat stranding. No urinary tract calculi identified. Moderately large volume stool is seen throughout the colon. Extensive sigmoid diverticulosis without definite evidence of acute diverticulitis. Severe lumbar dextroscoliosis, advanced multilevel degenerative spondylosis. Predominantly right lateral abdominal wall edema/anasarca. . Electronically signed by: Moreno Larson MD, DABTony 12/09/23 21:03 PM Chest X-Ray 12/09/23 18:17 XR chest 1V portable HISTORY: 83 years-old Female abd pain, hypoxia acute hypoxia COMPARISON: 03/11/2023 TECHNIQUE: AP view of the chest FINDINGS: Cardiac silhouette is enlarged. Mild asymmetric left hilar prominence. Layering left pleural effusion with left basilar consolidation. Pulmonary vascular congestion. No pneumothorax.. Chronic left-sided rib fractures. IMPRESSION: 1. Cardiomegaly with pulmonary vascular congestion. 2. Layering left pleural effusion with left basilar consolidation which may represents atelectasis versus pneumonia. ACT 112: Negative or not required by law. The above report was generated using voice recognition software. It may contain grammatical, syntax or spelling errors. Electronically signed by: Ezra Gillis M.D. 12/09/2023 7:16 PM Supervising Physician Co-Signing Physician Notes Patient seen and examined, chart reviewed, case discussed with Dr. Latif and I agree with the assessment and plan as above. In brief, patient is an 83yo female presenting with RLQ abdominal pain and rigors. Found to have right sided hydronephrosis - concern for obstructing stone. Patient with UTI diagnosed outpatient - received Macrobid x 1 dose. She has history of ESBL infection and was treated with Ertapenem in the ER. Patient was taken to the OR by Urology and had cystoscopy/right pyelogram with stent insertion. Purulent urine noted from the right kidney. Patient evaluated after her procedure - seen in room 263-1. She is somnolent but arousable - does not wish to answer questions right now but would rather sleep. She does report that her pain and nausea are gone and that she feels better +S1/S2, regular Lungs CTA Abd soft, NT/ND Ext warm and well perfused Labs and images reviewed Singnificant for WBC=17.34 with neutrophil predominance and elevated N:L Cr=1.21 from 1.12 on 11/06/23 UA from 12/08/23 suggestive of infection - culture with >100,000 CFU of GNB Assessment/Plan Obstructing nephrolithiasis with UTI, h/o ESBL Klebsiella Sepsis present on admission with leukocytosis and HR documented >90 in the ER s/p stent placement, stone removal -Admit to PCU -Continue Ertapenem, await cultures -Will hold additional fluids for now as patient with cardiomegaly, pulmonary vascular congestion and layering pleural effusion noted on imaging. Mild hypoxia in the ER now on 2L NC saturating 96% with no respiratory distress -Will hold Metoprolol for now and closely monitor blood pressure -Remainder as above Resident Activity Tracking Resident Involvement: Resident Care Provided Care Provided: Adult [facility]
[2023-12-09] MEDS: DIATRIZOATE MEGLUMINE 30% 100ML VIAL INSTIL ONE (23:26)
--- NOTE | 2023-12-09 23:33 | Operative Report ---
PG Post Operative Report Pre & Post Diagnosis Operation Date: 12/09/23 23:30 Pre-Op Diagnosis: 1. Recurrent UTI, 2. Hydronephrosis, 3. Obstruction of right kidney, 4. Right sided abdominal pain, 5. Right kidney stone Post-Op Diagnosis: 1. Recurrent UTI, 2. Hydronephrosis, 3. Obstruction of right kidney, 4. Right sided abdominal pain, 5. Right kidney stone I identified the patient and participated in the time-out.: Yes Procedure Operation Date: 12/09/23 23:30 Actual Procedures p Cystoscopy, Right Retrograde Pyelogram, Right Urine Aspiration, and Right Stent Insertion(Right) - Enmanuel Pereira DO Surgeon Enmanuel Pereira, II, DO Diesel Scoop Operator None Estimated Blood Loss 0 Findings Consistent with Post-Op Diagnosis Severe hydronephrosis with retained contrast from scan. Significant obstruction. Severely purulent urine from the right kidney. Stent placed in good position. Specimens Urine Right Kidney Drains 6 Fr x 24 Right Anesthesia Type MAC Complications none Disposition Disposition: Recovery Room Indications Patient with obstruction. Risks and benefits discussed at length. Description of Procedure Patient was consented and brought back to the operating room. Patient was placed under anesthesia in the supine position and moved to the dorsal lithotomy position. Patient was prepped and draped in the regular sterile fashion. A time out was completed. A 30degree Cystoscope was placed into the bladder and the entire bladder was examined. The UO's were identified. The UO was cannulized with a catheter and a wire was advanced. Within the renal pelvis on fluoroscopy retained contrast was appreciated. The catheter was advanced. Manipulation was necessary to get by the obstruction in the proximal ureter. The catheter was able to enter the pelvis. Urine was aspirated from the kidney. Severe purulent urine was noted. This was sent for culture. The catheter was then used for a retrograde pyelogram which was completed. A wire was then replaced. With the wire in place, a 6 Fr Double J stent was placed. It was confirmed with fluoroscopy. With the stent in place, the bladder was emptied. Debris and purulent urine was evacuated from the bladder. Due to the large drainage, it was decided to place a catheter. The scope was removed. A 18 Fr rosario was placed. The patient was cleaned, aroused from anesthesia, and transferred to the pacu in stable condition having tolerated the procedure well with no complications. I was present and participated in all aspects of the procedure. The patient will be monitored in the PACU until transferred. Plan for approx 1-2 weeks for proper antibiotic coverage. Will discuss stone treatment after infection managed. Will maintain stent until stone/obstruction can be treated. Likely can remove catheter in 1-2 days after significant drainage improves. I attest to the content of the Intraoperative Record and any orders documented therein. Any exceptions are noted below.
[2023-12-09] MEDS: LACTATED RINGER'S 500 ML IV ONE (23:45)
--- NOTE | 2023-12-09 23:56 | Anesthesiology Progress Note ---
Date of Service December 09, 2023 Anesthesia Post Procedure Vital Signs Vital Signs: Temp Pulse Pulse Resp BP BP Pulse Ox 12/09/23 23:42 36.7 C 82 19 93/49 L 98 12/09/23 22:32 36.6 C 81 18 107/53 L 98 12/09/23 22:03 93 H 19 12/09/23 22:00 127/84 12/09/23 22:00 127/84 12/09/23 21:48 88 22 12/09/23 21:36 87 21 12/09/23 21:31 134/76 12/09/23 21:17 117/89 12/09/23 21:17 117/89 12/09/23 21:15 90 19 12/09/23 21:00 85 23 12/09/23 20:45 83 20 12/09/23 20:15 80 18 97 12/09/23 19:30 144/82 H 12/09/23 19:21 86 17 96 12/09/23 19:03 87 19 95 12/09/23 19:00 160/90 H 12/09/23 19:00 160/90 H 12/09/23 19:00 160/90 H 12/09/23 19:00 160/90 H 12/09/23 18:22 81 12/09/23 18:16 81 22 95 12/09/23 18:08 36.8 C 82 22 174/88 H 89 L O2 Del Method O2 Flow Rate 12/09/23 23:42 Oxymask 2 12/09/23 22:32 Oxymask 8 12/09/23 22:03 12/09/23 22:00 12/09/23 22:00 12/09/23 21:48 12/09/23 21:36 12/09/23 21:31 12/09/23 21:17 12/09/23 21:17 12/09/23 21:15 12/09/23 21:00 12/09/23 20:45 12/09/23 20:15 12/09/23 19:30 12/09/23 19:21 12/09/23 19:03 12/09/23 19:00 12/09/23 19:00 12/09/23 19:00 12/09/23 19:00 12/09/23 18:22 12/09/23 18:16 Nasal Cannula 2.5 12/09/23 18:08 Room Air Transfer of Care Handoff Completed per policy Notes Mental Status: alert / awake / arousable Patient Amnestic to Procedure: Yes Nausea / Vomiting: adequately controlled Pain: adequately controlled Airway Patency, RR, SpO2: stable & adequate BP & HR: stable & adequate Hydration State: stable & adequate Anesthetic Complications: no major complications apparent and Pt Satisfied with anesthetic care
[2023-12-10] MEDS ORDERED: ACETAMINOPHEN 325 MG TAB PO PRN (00:55)
[2023-12-10] MEDS: LACTATED RINGER'S 1,000 ML IV SCH (01:26)
[2023-12-10] MEDS: ACETAMINOPHEN 500 MG TAB PO SCH (01:26)
--- NOTE | 2023-12-10 03:10 | Billing Data ---
Date of Service December 09, 2023 Coding Level of Care Code 91489 INT INP/OBS CARE
[2023-12-10] MEDS: MoRPHine SULFATE 2 MG/ML CARP IV PRN (06:10)
--- NOTE | 2023-12-10 07:01 | Fluoroscopy Report ---
FL retrograde includes kub CLINICAL HISTORY: RIGHT STENTright-sided ureteral stent placement COMPARISON STUDY: CT of same day FLUOROSCOPY TIME: 45.9 seconds FLUOROSCOPY IMAGES: 4 EXPOSURE DOSE: 9.53 mGy FINDINGS: Status post placement of a right ureteral stent which appears to be in satisfactory positio kimo. There is persistent hydronephrosis. Right hip arthroplasty. IMPRESSION: Fluoroscopic assistance as above. ACT 112: Negative or not required by law. Electronically signed by: Ezra Gillis M.D. 12/10/2023 7:00 AM
[2023-12-10] MEDS: METOCLOPRAMIDE HCL 5 MG TABLET PO SCH (08:17)
--- NOTE | 2023-12-10 08:55 | Electrocardiogram Report ---
Test Reason : Blood Pressure : */* mmHG Vent. Rate : 91 BPM Atrial Rate : 91 BPM P-R Int : 272 ms QRS Dur : 100 ms QT Int : 366 ms P-R-T Axes : * -35 94 degrees QTcB Int : 450 ms Sinus rhythm with 1st degree A-V block Left axis deviation Minimal voltage criteria for LVH, may be normal variant Poor R wave progression, consider anterior NM vs. lead placement vs. LVH Abnormal ECG When compared with ECG of 03-Nov-2023 20:22, Premature ventricular complexes are no longer Present Confirmed by Joe Schreiber ([id number]) on 12/10/2023 8:55:06 AM Referred By: REFERRED SELF Confirmed By: Joe Schreiber
[2023-12-10] MEDS ORDERED: NON-FORMULARY MEDICATION (Prevagen 1 TAB) PO SCH (09:00)
[2023-12-10] MEDS ORDERED: METOPROLOL SUCC 25MG EXT REL TAB PO SCH (09:00)
[2023-12-10 09:22] LABS: Hematocrit (blood only) 34.8 % (37.0-47.0); Hemoglobin 10.9 g/dl (12.0-16.0); Mean Corpuscular Hgb Conc 31.3 g/dL (32.0-36.0); Mean Corpuscular Volume 102.1 fL (80.0-100.0); Mean Platelet Volume 9.6 fL (9.4-12.4); Platelet Count 212 K/uL (130-400); RDW Coefficient of Variation 13.3 % (11.5-14.5); RDW Standard Deviation 49.9 fL (36.4-46.3); Red Blood Count 3.41 M/uL (4.20-5.40); White Blood Count 29.78 K/ul (4.8-10.8)
[2023-12-10 09:30] LABS: BUN Creatinine Ratio 13.1 (10-20); Calcium 8.1 mg/dl (8.6-10.3); Creatinine Clr Calc Pharmacy 28.9 ml/min; Est GFR (African American) 40.9 ml/min; Est GFR (Non-African American) 35.3 ml/min
[2023-12-10 09:41] LABS: Basophils # (auto) 0.09 K/uL (0.00-0.20); Basophils % (auto) 0.3 %; Eosinophils # (auto) 0.06 K/uL (0.00-0.50); Eosinophils % (auto) 0.2 %; Immature Granulocytes # (auto) 0.26 K/uL (0.01-0.20); Immature Granulocytes % (auto) 0.9 %; Lymphocytes # (auto) 1.37 K/uL (1.20-3.40); Lymphocytes % (auto) 4.6 %; Monocytes # (auto) 2.46 K/uL (0.11-0.59); Monocytes % (auto) 8.3 %; Neutrophils # (auto) 25.54 K/uL (1.40-6.50); Neutrophils % (auto) 85.7 %
[2023-12-10] MEDS: CEROVITE ADV FORMULA TAB PO SCH (09:59)
[2023-12-10] MEDS: AMIODARONE 200 MG TAB PO SCH (09:59)
[2023-12-10] MEDS: busPIRone 5 MG TAB PO SCH (10:00)
[2023-12-10] MEDS: MAGNESIUM OXIDE 400 MG TAB PO SCH (10:00)
[2023-12-10] MEDS: DULoxetine HCL 60 MG CAP PO SCH (10:00)
[2023-12-10] MEDS: PRAVASTATIN SOD 40 MG TAB PO SCH (10:00)
[2023-12-10] MEDS: FERROUS SULFATE 325 MG TAB PO SCH (10:01)
[2023-12-10] MEDS: PANTOprazole 40 MG TAB PO SCH (10:01)
--- NOTE | 2023-12-10 14:59 | Urology Progress Note ---
Date of Service December 10, 2023 Assessment & Plan (1) Obstruction of right kidney: (2) Hydronephrosis: (3) Pyelonephritis: Plan - POD #1 s/p Cystoscopy, Right Retrograde Pyelogram, Right Urine Aspiration, and Right Stent Insertion - Afebrile, mildly hypotensive at present - Labs reviewed-WBC up to 29.78, hemoglobin 10.9, creatinine 1.37. - Urine culture 12/07 grew Proteus. Urine right kidney aspirate pending. - Loera catheter intact and draining yellow urine. - Maintain Loera catheter and ureteral stent for maximum decompression of the urinary tract. - Continue antibiotics and tailor as culture data becomes available. - Continue supportive care. - Continue to trend labs. - Will arrange outpatient follow-up for stone/stent management after acute issues/infection have resolved. - Urology will follow along. Admission and Anticipated Discharge Date Admission Date: December 09, 2023 Subjective Patient seen at bedside today. Awake, sitting up in bed on arrival. No acute distress. Loera draining yellow urine. Patient denies fevers, chills, nausea, vomiting. Reports back pain. Review of Systems Constitutional: as per Subjective / HPI Gastrointestinal: as per Subjective / HPI Genitourinary: as per Subjective / HPI Physical Exam Constitutional: no acute distress Respiratory: no respiratory distress and no labored breathing Neurologic: awake Psychiatric: Orientation: alert and cooperative Genitourinary: Loera intact Results & Data Vital Signs (Past 12 Hours) Vital Signs Temp Pulse Pulse Pulse Resp BP Pulse Ox 12/10/23 12:30 37.0 C 78 16 98/61 L 96 12/10/23 08:08 36.8 C 77 18 94/57 L 94 12/10/23 08:00 12/10/23 07:35 76 O2 Del Method O2 Flow Rate 12/10/23 12:30 Nasal Cannula 2 12/10/23 08:08 Nasal Cannula 2 12/10/23 08:00 Nasal Cannula 2 12/10/23 07:35 PG Care Time/CCT Total # of Minutes Spent Total Time Spent with Patient: Total time spent is greater than 50% in coordination of care (as documented) at patient's floor/unit and/or counseling patient: Coding Level of Care Code 82310 SUB INP/OBS CARE 2/35MIN Diagnoses Obstruction of right kidney N28.89 Hydronephrosis N13.30 Pyelonephritis N12
--- NOTE | 2023-12-10 15:32 | Hospitalist Progress Note ---
Date of Service December 10, 2023 Assessment & Plan (1) Hydronephrosis with urinary obstruction due to renal calculus: Plan: Patient presents with mid to lower right quadrant abdominal pain. Urine culture from 12 06 now growing Proteus Leukocytosis 17.3; on admission Ertapenem started for initial coverage CTAP: Evidence of significant right hydronephrosis and kidney stone present( as per Urology) Distended GB with Cholelithiasis BL adrenal Nodeules; MRI advised. Urology placed a stent on 12/08 Continue antibiotics O2 at 2l/ min ; goal > 92% (2) Pyelonephritis: Plan: Pyelonephritis vs Kidney change due to Severe obstruction; High likelihood of sepsis. -Patient presents with mid to lower right quadrant abdominal pain. Urine culture from 12/06 growing Proteus Leukocytosis 17.3 on admission. Now 29 Ertapenem started for initial coverage (3) Recurrent UTI: Plan: Admitted x 2 for UTI in last 6 month Complicated/multidrug resistant UTI D mannose supplementation ongoing as per chart Photo Equipment Technician issues: Prolapsed bladder; Topical estrogen sugegsted in past. Photo Equipment Technician evaluation was recommended in past; patient can't give more information at current status. Photo Equipment Technician note not available on record; Review with patient once patient is stable. (4) PAF (paroxysmal atrial fibrillation): Plan: H/O PAF; EKG in ED: 91 bpm sinus rhythm first-degree AV block. Left axis. No PVC or PAC. No acute ST segment elevation or depression. Continue Telemetry observation ; high risk for new Afib -Home meds for Afib: Metoprolol and Eliquis - Eliquis held for surgery; can resume today per urology (5) Atelectasis: Plan: Saturation not maintained on room air, on 2 L oxygen Chest X-ray: Left pleural effusion with left basilar consolidation which may represents atelectasis versus pneumonia. Clinically PNE less likely; could be atelactasis given saturation not maintained in RA Rec: Incentive [place] once patient is stable; Repeat Clinical evaluation Plan Code status: Full code DVT prevention: Per urology, can resume Eliquis Admission and Anticipated Discharge Date Admission Date: December 09, 2023 Subjective Patient feels better overall. Denies chest pain or shortness of breath. Review of Systems Review of Systems: All systems reviewed & are unremarkable except as noted in Subjective Physical Exam Physical Exam: General: Awake, conversant Heart: S1, S2/regular rate and rhythm, no murmur rubs or gallops Lungs: Clear to auscultation bilaterally. Normal effort Abdomen: Soft/nontender/nondistended. No hepatosplenomegaly Extremities: No clubbing/cyanosis. No edema Behavior: Appropriate, cooperative Results & Data Results & Data Vital Signs (Past 12 Hours) Vital Signs Temp Pulse Pulse Pulse Resp BP Pulse Ox 12/10/23 12:30 37.0 C 78 16 98/61 L 96 12/10/23 08:08 36.8 C 77 18 94/57 L 94 12/10/23 08:00 12/10/23 07:35 76 O2 Del Method O2 Flow Rate 12/10/23 12:30 Nasal Cannula 2 12/10/23 08:08 Nasal Cannula 2 12/10/23 08:00 Nasal Cannula 2 12/10/23 07:35 Laboratory Results Abnormal lab results 12/09/23 12/09/23 12/10/23 Range/Units 18:39 18:47 01:20 WBC 17.34 H (4.8-10.8) K/ul RBC 3.94 L (4.20-5.40) M/uL Hgb (12.0-16.0) g/dl Hct (37.0-47.0) % MCV 100.5 H (80.0-100.0) fL MCHC (32.0-36.0) g/dL RDW Std Deviation 48.3 H (36.4-46.3) fL MPV 9.1 L (9.4-12.4) fL Neut # (Auto) 16.63 H (1.40-6.50) K/uL Lymph # (Auto) 0.45 L (1.20-3.40) K/uL [place] # (Auto) (0.11-0.59) K/uL Immature Gran # (Auto) (0.01-0.20) K/uL POC Chloride 100 L (101-112) mmol/L Creatinine 1.21 H (0.6-1.2) mg/dl Glucose 119 H (70-99(Fasting)) mg/dl POC Glucose 125 H (70-99) mg/dl POC Glucose (other) 117 H (70-99) mg/dl Calcium (8.6-10.3) mg/dl POC Ioniz Calcium Sofia 1.10 L (1.12-1.32) mmol/l Alkaline Phosphatase 138 H (34-104) U/L 12/10/23 Range/Units 07:41 WBC 29.78 H D (4.8-10.8) K/ul RBC 3.41 L (4.20-5.40) M/uL Hgb 10.9 L (12.0-16.0) g/dl Hct 34.8 L (37.0-47.0) % MCV 102.1 H (80.0-100.0) fL MCHC 31.3 L (32.0-36.0) g/dL RDW Std Deviation 49.9 H (36.4-46.3) fL MPV (9.4-12.4) fL Neut # (Auto) 25.54 H (1.40-6.50) K/uL Lymph # (Auto) (1.20-3.40) K/uL [place] # (Auto) 2.46 H (0.11-0.59) K/uL Immature Gran # (Auto) 0.26 H (0.01-0.20) K/uL POC Chloride (101-112) mmol/L Creatinine 1.37 H (0.6-1.2) mg/dl Glucose (70-99(Fasting)) mg/dl POC Glucose (70-99) mg/dl POC Glucose (other) (70-99) mg/dl Calcium 8.1 L (8.6-10.3) mg/dl POC Ioniz Calcium Sofia (1.12-1.32) mmol/l Alkaline Phosphatase (34-104) U/L PG Care Time/CCT Total # of Minutes Spent Total Time Spent with Patient: Total time spent is greater than 50% in coordination of care (as documented) at patient's floor/unit and/or counseling patient: Coding Level of Care Code 30642 SUB INP/OBS CARE 2/35MIN Diagnoses Hydronephrosis with urinary obstruction due to renal calculus N13.2 Pyelonephritis N12 Recurrent UTI N39.0 PAF (paroxysmal atrial fibrillation) I48.0 Atelectasis J98.11
[2023-12-10] MEDS: DULoxetine HCL 30 MG CAP PO SCH (20:33)
[2023-12-10] MEDS: rOPINIRole HCL 0.25 MG TABLET PO SCH (20:34)
[2023-12-10] MEDS: FAMOTIDINE 40 MG TABLET PO SCH (20:34)
[2023-12-10] MEDS: APIXABAN 2.5 MG TAB PO SCH (20:37)
[2023-12-10] MEDS: ERTAPENEM SODIUM 1,000 MG in SYRINGE 0 ML IV SCH (20:38)
[2023-12-10] MEDS: MELATONIN 3 MG TAB PO PRN (20:39)
[2023-12-11 08:53] LABS: Hematocrit (blood only) 31.4 % (37.0-47.0); Hemoglobin 10.1 g/dl (12.0-16.0); Mean Corpuscular Hemoglobin 31.7 pg (25.0-34.0); Mean Corpuscular Hgb Conc 32.2 g/dL (32.0-36.0); Mean Corpuscular Volume 98.4 fL (80.0-100.0); Mean Platelet Volume 9.1 fL (9.4-12.4); Platelet Count 184 K/uL (130-400); RDW Coefficient of Variation 12.9 % (11.5-14.5); RDW Standard Deviation 46.5 fL (36.4-46.3); Red Blood Count 3.19 M/uL (4.20-5.40); White Blood Count 11.79 K/ul (4.8-10.8)
[2023-12-11 09:10] LABS: BUN Creatinine Ratio 19.5 (10-20); Calcium 7.9 mg/dl (8.6-10.3); Creatinine Clr Calc Pharmacy 35.1 ml/min; Est GFR (African American) 51.7 ml/min; Est GFR (Non-African American) 44.6 ml/min; Potassium 4.7 mmol/L (3.5-5.1)
[2023-12-11] MEDS: cefTRIAXone SODIUM 1,000 MG/50 ML BAG IV SCH (09:34)
--- NOTE | 2023-12-11 10:32 | Urology Progress Note ---
Date of Service December 11, 2023 Assessment & Plan (1) Right kidney stone: (2) Hydronephrosis with urinary obstruction due to renal calculus: Plan Status post emergent stent placement secondary to sepsis Has indwelling Loera as well She is improving Her white count has dropped substantially She has Proteus in her urine culture which is pansensitive She likely can be transitioned to oral antibiotics in the near future I think it would be appropriate to offer her a voiding trial before discharge home We will arrange outpatient care of her stone and stent Please call if further issues arise during this hospitalization Admission and Anticipated Discharge Date Admission Date: December 09, 2023 Subjective Subjectively feels that she is improving, but she remains quite fatigued and tired She reports that she has been sleeping for long periods of the day yesterday and today She does think that she is considerably better today than she was yesterday She is afebrile No tachycardia No severe stent discomfort Loera catheter is somewhat frustrating to her but otherwise no subjective complaints Physical Exam Physical Exam: Urine clear in the Loera tubing Results & Data Vital Signs (Past 12 Hours) Vital Signs Temp Pulse Resp BP Pulse Ox O2 Del Method O2 Flow Rate 12/11/23 07:57 36.9 C 66 16 113/64 95 Nasal Cannula 2 12/11/23 04:49 36.5 C 69 18 104/63 95 Nasal Cannula 2 12/10/23 23:16 37.0 C 73 16 112/69 98 Nasal Cannula 2.5 PG Care Time/CCT Total # of Minutes Spent Total Time Spent with Patient: Total time spent is greater than 50% in coordination of care (as documented) at patient's floor/unit and/or counseling patient: Coding Level of Care Code 11757 SUB INP/OBS CARE 1/25MIN Diagnoses Right kidney stone N20.0 Hydronephrosis with urinary obstruction due to renal calculus N13.2
--- NOTE | 2023-12-11 15:06 | Hospitalist Progress Note ---
Date of Service December 11, 2023 Assessment & Plan (1) Hydronephrosis with urinary obstruction due to renal calculus: Plan: Patient presents with mid to lower right quadrant abdominal pain. Urine culture from 12/06 now growing Proteus pansensitive Leukocytosis 17.3; on admission. Resolved Ertapenem started for initial coverage. Switch to p.o. Keflex CTAP: Evidence of significant right hydronephrosis and kidney stone present( as per Urology) Distended GB with Cholelithiasis BL adrenal Nodeules; MRI advised. Urology placed a stent on 12/08 Switch antibiotics to p.o. (2) Pyelonephritis: Plan: Pyelonephritis vs Kidney change due to Severe obstruction; High likelihood of sepsis. -Patient presents with mid to lower right quadrant abdominal pain. Urine culture from 12/06 growing Proteus Leukocytosis 17.3 on admission. Now resolved Ertapenem started for initial coverage. Switch to p.o. Keflex (3) Recurrent UTI: Plan: Admitted x 2 for UTI in last 6 month Complicated/multidrug resistant UTI D mannose supplementation ongoing as per chart Director Of Public Health issues: Prolapsed bladder; Topical estrogen sugegsted in past. Director Of Public Health evaluation was recommended in past; patient can't give more information at current status. Director Of Public Health note not available on record (4) PAF (paroxysmal atrial fibrillation): Plan: H/O PAF; EKG in ED: 91 bpm sinus rhythm first-degree AV block. Left axis. No PVC or PAC. No acute ST segment elevation or depression. Continue Telemetry observation ; high risk for new Afib -Home meds for Afib: Metoprolol and Eliquis - Eliquis resumed (5) Atelectasis: Plan: Saturation not maintained on room air, on 2 L oxygen Chest X-ray: Left pleural effusion with left basilar consolidation which may represents atelectasis versus pneumonia. Clinically PNE less likely; could be atelactasis given saturation not maintained in RA Rec: Incentive [place] once patient is stable; Repeat Clinical evaluation Plan Code status: Full code DVT prevention: Resumed Eliquis Spoke to daughter on the phone. Likely discharge tomorrow 12/11 Admission and Anticipated Discharge Date Admission Date: December 09, 2023 Subjective Patient feels well overall. Denies chest pain or shortness of breath. Review of Systems Review of Systems: All systems reviewed & are unremarkable except as noted in Subjective Physical Exam Physical Exam: General: Awake, conversant Heart: S1, S2/regular rate and rhythm, no murmur rubs or gallops Lungs: Clear to auscultation bilaterally. Normal effort Abdomen: Soft/nontender/nondistended. No hepatosplenomegaly Extremities: No clubbing/cyanosis. No edema Behavior: Appropriate, cooperative Results & Data Results & Data Vital Signs (Past 12 Hours) Vital Signs Temp Pulse Pulse Resp BP Pulse Ox O2 Del Method 12/11/23 13:31 81 12/11/23 12:08 36.9 C 67 16 110/60 94 Nasal Cannula 12/11/23 08:00 Nasal Cannula 12/11/23 08:00 74 12/11/23 07:57 36.9 C 66 16 113/64 95 Nasal Cannula 12/11/23 04:49 36.5 C 69 18 104/63 95 Nasal Cannula O2 Flow Rate 12/11/23 13:31 12/11/23 12:08 2 12/11/23 08:00 3 12/11/23 08:00 12/11/23 07:57 2 12/11/23 04:49 2 Laboratory Results Abnormal lab results 12/11/23 Range/Units 08:30 WBC 11.79 H (4.8-10.8) K/ul RBC 3.19 L (4.20-5.40) M/uL Hgb 10.1 L (12.0-16.0) g/dl Hct 31.4 L (37.0-47.0) % RDW Std Deviation 46.5 H (36.4-46.3) fL MPV 9.1 L (9.4-12.4) fL Sodium 135 L (136-145) mmol/L Calcium 7.9 L (8.6-10.3) mg/dl PG Care Time/CCT Total # of Minutes Spent Total Time Spent with Patient: Total time spent is greater than 50% in coordination of care (as documented) at patient's floor/unit and/or counseling patient: Coding Level of Care Code 81509 SUB INP/OBS CARE 2/35MIN Diagnoses Hydronephrosis with urinary obstruction due to renal calculus N13.2 Pyelonephritis N12 Recurrent UTI N39.0 PAF (paroxysmal atrial fibrillation) I48.0 Atelectasis J98.11
[2023-12-11] MEDS: cephALEXin 500 MG CAP PO SCH (16:18)
[2023-12-12 04:45] VITALS: TEMP 98.4
[2023-12-12 11:39] VITALS: RESP 17; O2SAT 94
[2023-12-12 12:19] VITALS: BP 138/76; PULSE 78
--- NOTE | 2023-12-12 13:40 | Discharge Summary ---
Date of Service December 12, 2023 Admission HPI Per Admitting Provider Brionna is a 83-year-old female history of recurrent resistant UTI, spinal stenosis, diastolic dysfunction, paroxysmal atrial fibrillation on Eliquis, venous insufficiency, GERD, CKD presenting here via ambulance from home. She endorses right lower quadrant abdominal pain which started today morning. It was proceeded ny significant nausea and rigors. She felt unwell since yesterday. She is still nauseous and sleepy when I was in her room, did not want to make more communication as she mentions she feels overwhelmed. She gives H/O recurrent UTI in past and shared me she just want to get rid of it. She menti oned that her urine sample collected from home nursing yesterday and since has taken 1 dose by her report of the Macrobid prescribed. She is well aware that urologic surgery is planned for her today and she agrees with this plan. She shared me she lives with her daughter and she will be here to help her in hospital. She had brought her to the ER and just left. Denies chest pain or shortness of breath. Denies cough or cold or sore throat, vomiting, fever, headache, loss of appetite. PMH: reviewed chart Medication history : reviewed Drug and allergy: Allergic to tramadol; no other she is aware of Living situation: Lives at home with Daughter; recently at rehab though Admission Exam Per Admitting Provider Constitutional: Well appearing, Looks dehydrated, and distressed Sleeping in propped up position with O2 flowing through canula at 2L/min HEENT: Atraumatic, Normocephalic, No conjunctival injection CVS: S1 S2 no murmur, Regular Rhythm, no LE edema Respiratory: BL decreases air entry on lung bases with NVBS. No rhonchi, wheezes, or crackles. No increased work of breathing GI: Tenderness in Right lower quadrant +, Renal angle tenderness + in right , Left side normal, Normal Bowel sounds + MSK: No gross deformities noted, Muscle power normal in BL UL and LL Skin: Warm, Dry, No rashes Neuro: Alert, Oriented to TPP, No Focal deficit Psych: Mood and Affect congruent, Cooperative on exam Principal Diagnosis Acute complicated pyelonephritis due to infected obstructing right kidney stone status post stent on 12/08 Discharge Exam General: Awake, conversant Heart: S1, S2/regular rate and rhythm, no murmur rubs or gallops Lungs: Clear to auscultation bilaterally. Normal effort Abdomen: Soft/nontender/nondistended. No hepatosplenomegaly Extremities: No clubbing/cyanosis. No edema Behavior: Appropriate, cooperative Discharge Data Allergies Allergy/AdvReac Type Severity Reaction Status Date / Time tramadol Allergy ITCHY Verified 11/26/23 09:50 Consultations 12/09/23 21:21 ED Decision to Admit Stat Procedures Performed Operation Date: 12/09/23 23:30 Actual Procedures p Cystoscopy, Right Stent Insertion(Right) - Enmanuel Pereira, Ordered Studies 12/09/23 [place] retrograde includes kub Routine 12/09/23 18:16 CT abd pelvis IV con only Stat Hospital Course (1) Hydronephrosis with urinary obstruction due to renal calculus: Patient presents with mid to lower right quadrant abdominal pain. Urine culture from 12/06 now growing Proteus pansensitive Leukocytosis 17.3; on admission. Resolved Ertapenem started for initial coverage. Switch to p.o. Keflex CTAP: Evidence of significant right hydronephrosis and kidney stone present( as per Urology) Distended GB with Cholelithiasis BL adrenal Nodeules; MRI advised. Urology placed a stent on 12/08. Patient has been advised to follow-up with urology for further management of stones/stent. Switched antibiotics to p.o. (2) Pyelonephritis: Pyelonephritis vs Kidney change due to Severe obstruction; High likelihood of sepsis. -Patient presents with mid to lower right quadrant abdominal pain. Urine culture from 12/06 growing Proteus Leukocytosis 17.3 on admission. Now resolved Ertapenem started for initial coverage. Switch to p.o. Keflex Discharge on p.o. Keflex. (3) Recurrent UTI: Admitted x 2 for UTI in last 6 month Complicated/multidrug resistant UTI D mannose supplementation ongoing as per chart Respiratory Director issues: Prolapsed bladder; Topical estrogen sugegsted in past. Respiratory Director evaluation was recommended in past; patient can't give more information at current status. Respiratory Director note not available on record Patient has been advised to hold nitrofurantoin for as long as she is on p.o. Keflex. Has been asked to speak to her PCP about whether or not to take the nitrofurantoin after she is done with the Keflex course. (4) PAF (paroxysmal atrial fibrillation): -Home meds for Afib: Metoprolol and Eliquis - Eliquis resumed (5) Atelectasis: Now on room air Plan Discharge to home today Total Time Total Time Spent Total Time Spent (In Minutes): 35 Discharge Plan Discharge Items Patient Disposition: Home - Home Health Services Reason For Visit: UROLITHIASIS WITH SEVERE HYDRONEPHROSIS Discharge Diagnosis: Acute complicated pyelonephritis due to infected obstructing right kidney stone status post stent on 12/08 Activity: Resume your previous activity Non-emergency contact: Primary Care Provider Call non-emergency contact if: you have any medication questions and your symptoms worsen Follow-up/Referrals: Joe Calderon MD [Physician] - Kimber Prater DO [Primary Care Provider] - 12/23/23 10:20 am Diet: Heart Healthy Addtl Attending Provider Instructions: Advised to follow-up with PCP in 1 week Advised to note that you will need to follow-up with urology outpatient for stent removal and further management of stone. Urology office will contact you. Advised to hold the nitrofurantoin for now. Speak to PCP to decide if you need to start nitrofurantoin after the Keflex course ends Pending Studies at Discharge: No Stand-Alone Forms: My [facility] Medications and DC Order Prescriptions: New cephalexin 500 mg capsule 500 mg PO BID 5 Days Qty: 10 0RF Continued PreserVision AREDS [id number] hygo-[id number] capsule 1 cap PO BID pravastatin 40 mg tablet 40 mg PO DAILY Qty: 90 2RF metoprolol succinate 25 mg tablet extended release 24 hr 25 mg PO QAM Qty: 90 2RF ropinirole 0.25 mg tablet 0.25 mg PO HS Qty: 90 1RF ferrous sulfate [Iron (ferrous sulfate)] 325 mg (65 mg iron) tablet 325 mg PO DAILY Qty: 90 1RF duloxetine 60 mg capsule,delayed release(DR/EC) 60 mg PO QAM Qty: 90 1RF buspirone 5 mg tablet 5 mg PO BID Qty: 180 2RF metoclopramide HCl 5 mg tablet 5 mg PO QID Qty: 120 2RF omeprazole 40 mg capsule,delayed release(DR/EC) 40 mg PO QAM Qty: 90 3RF famotidine 40 mg tablet 40 mg PO HS Qty: 90 1RF duloxetine 30 mg capsule,delayed release(DR/EC) 30 mg PO QPM Qty: 90 4RF amiodarone 200 mg tablet 200 mg PO QAM Qty: 90 3RF magnesium oxide 400 mg (241.3 mg magnesium) tablet 400 mg PO BID Qty: 180 3RF Prevagen 1 tab PO DAILY acetaminophen [Tylenol Extra Strength] 500 mg Tablet 1,000 mg PO Q8H Qty: 30 0RF oxycodone 5 mg Tablet 5 mg PO Q6H PRN (Reason: pain (scale score 7-10)) Qty: 20 0RF Eliquis 2.5 mg tablet 2.5 mg PO BID Held nitrofurantoin monohyd/m-cryst [Macrobid] 100 mg capsule 100 mg PO BID 7 Days Qty: 14 0RF Hold Instructions: Resume on 12/20/23. after seen by PCP Rx Instructions: must administer with a meal/food Discharge Orders: Discharge Order (Routine); Ordered 12/12/23 Ordered By: Francoise Pineda Admission Data Admit Date/Time: 12/09/23 22:42 Attending Provider: Francoise Pineda Admit Provider: Nahomy Latif Primary Care Provider: Kimber Prater Other Providers: Arline Mack Home [facility] Other Interventions: Discharge Summary Assessment (RN) Last Done: 12/12/23 12:18
== END 2023-12-12 14:36 | disposition home health service (06) | DRG 854 ==
LOC: ED 18:08 → 2W 22:27 → SUATTDRO 22:42 → 2W 22:42

== ENCOUNTER 2024-12-15 11:50 | Observation (INO) ==
--- NOTE | 2024-12-15 12:35 | Emergency Department Note ---
Impression & Plan Acute confusion, Hallucinations, Acute UTI ED Provider Note NAME: WARREN GUZMAN AGE: 84 SEX: F : 1940 ARRIVES VIA: Walk-In INFORMANT: [Patient][daughter] ED PROVIDER(S): [Semaj Underwood MD] CHIEF COMPLAINT: Urinary symptoms HISTORY OF PRESENT ILLNESS: Patient is a 84-year-old female who is brought by her daughter for a potential UTI. Patient has had a few weeks of foul-smelling urine and then today, began hallucinating. She thought there were people present that were not actually there. She has had this same type of issue before with previous UTIs. As per the daughter, there has been no fever, no vomiting. No diarrhea. No complaints of chest pain or abdominal pain. She has not fallen or suffered head trauma. PMHx/PSHx/Social Hx: See Below PHYSICAL EXAM: GENERAL: Patient is in no acute distress. HEENT: No acute trauma, normocephalic atraumatic, mucous membranes moist, no nasal congestion. NECK: No stridor, no adenopathy, no meningismus, trachea is midline. LUNGS: Clear to auscultation bilaterally, no wheeze, no rhonchi, breath sounds equal. HEART: Without murmurs gallops or rubs, regular rate and rhythm. ABDOMEN: Soft, nontender, no peritonitis. EXTREMITIES: No cyanosis, full range of motion of all the joints without pain or difficulty. NEUROLOGIC: Awake and alert, no obvious focal motor deficit. No speech slur. SKIN: No jaundice, no diaphoresis. DIFFERENTIAL DIAGNOSIS: UTI, dehydration, stroke, intracranial bleeding, acidosis, liver or renal failure, among others. EMERGENCY DEPARTMENT PROCEDURES: MEDICAL DECISION MAKING: There is no leukocytosis or concerning anemia. There is a normal platelet count. VBG does not show any acidosis although, the CO2 is slightly elevated. There is no renal failure or significant electrolyte abnormality. No concerning liver enzyme elevation. The patient appears to be in a euthyroid state. ECG shows a sinus rhythm, no acute ischemia. Cardiac enzyme testing x 1 is not consistent with acute cardiac injury. Urinalysis does show findings of infection. Chest x-ray does not show any pneumonia, some chronic change was seen. Brain CT showed no acute bleed or mass effect. The patient received IV saline for hydration, 1 L. She was given IV ceftriaxone as antibiotic therapy. The patient presents confused with hallucinations. She has a UTI. She has had confusion and issues like today with previous UTIs. The family is very uncomfortable with her returning home given the confusion. For now, the patient will be hospitalized. I suspect her mental state will clear as the infection in the urine clears. I did speak with the patient and case management, the on-call hospitalist was consulted. Prior/Outside records/notes reviewed: None ECG per my interpretation: Indication was weakness. The ECG shows a sinus rhythm with a first-degree AV block. The rate is 75. LVH is present. There is no acute ST elevation, no PVCs. The QTc is 448. Continuous Cardiac Monitoring per my interpretation: An order was placed for continuous cardiac monitoring. The monitor shows a rate of 82 with normal sinus rhythm. Imaging/x-ray results per my interpretation: Chest x-ray shows some chronic change, I did not see any focal pneumonia or CHF. Chronic Medical/Social conditions affecting care: Advanced age. Care/Management discussed with: Case management, the on-call hospitalist. Level of care consideration(s): After review of the information above and other included data: --I believe the patient requires escalation of care to admission DISPOSITION: Admission Past Med/Surg History Problem List Acute UTI (Acute) Hallucinations (Acute) Acute confusion (Acute) Disc degeneration, lumbar Depression Anxiety Cholelithiases Atelectasis 12/09/23 Right kidney stone Hx of delirium Recurrent UTI (Acute) Urinary incontinence Ambulatory dysfunction Venous insufficiency of both lower extremities Chronic anticoagulation Diastolic dysfunction LVH (left ventricular hypertrophy) Lumbar spinal stenosis Vitamin D deficiency Osteoporosis Hearing difficulty Osteoarthritis Macular degeneration Scoliosis Anemia Medical History Fracture, tibial plateau (~11/03/23) left knee- comminuted, intra-articular and depressed lateral tibial plateau fracture with fracture extension into the tibial spines and lateral proximal tibial metadiaphysis. Fracture of tibial plateau, closed (11/03/23) left knee- comminuted, intra-articular and depressed lateral tibial plateau fracture with fracture extension into the tibial spines and lateral proximal tibial metadiaphysis from a fall Pelvic pressure in female Pyelonephritis Hydronephrosis with urinary obstruction due to renal calculus History of fractured kneecap (11/2023) no surgical intervention required. LVH (left ventricular hypertrophy) per medical record History of closed fracture hx of closed rib fracture 03/2022 hx of closed hip fracture 06/2021 On anticoagulant therapy Recurrent UTI Kidney stones Scoliosis Macular degeneration Hx of pleural effusion (01/2022) bilateral s/p chest tube placement (r/t hiatal hernia repair) History of COVID-19 02/2023 - while inpatient for a UTI - resolved. Urinary tract infection due to extended-spectrum beta lactamase (ESBL)-producing Klebsiella Restless leg Grief Loss of spouse August 2018 Diverticulosis Mitral regurgitation moderate. Rheumatoid arthritis Surgical History S/P cystoscopy with ureteral stent placement (12/09/23) History of colonoscopy History of esophagogastroduodenoscopy (EGD) Status post Adilia fundoplication (01/2022) History of repair of hiatal hernia (01/2022) S/P ORIF (open reduction internal fixation) fracture (~03/2021) S/P thyroid surgery (01/2019) Status post arthroscopic partial medial meniscectomy (11/02/17) H/O bilateral oophorectomy (04/12/17) History of hysterectomy (1988) History of total hip arthroplasty History of tooth extraction History of tonsillectomy History of adenoidectomy History of cataract surgery Family History Father Coronary heart disease Kidney disease Colorectal cancer Lung disease Mother Coronary heart disease Myocardial infarction Gallbladder disease Sister Diabetes Colorectal cancer Family/Other Diabetes Other No family history of adverse response to anesthesia Denies family history of Ovarian cancer Prostate cancer Breast cancer Social History Smoking Status: Never smoker Second Hand Exposure: No; Do You Dip or Chew Tobacco: No; Hx Alcohol Use: No Hx Substance Use: No Preferred Language: Sudanese Communication Ability: Effective Visual Impairment: No Limitations Hearing Ability: Use of Hearing Aid Opener Tender Required: No Beliefs That Will Affect Care: None marital status: / marital status details: passed August 2018 Current Living Situation: Family Current Living Situation Comment: lives with her daughter current occupational status: retired 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 How many Children do You have: 2 Feels Safe at Home: Yes Childhood Exposure to Second-Hand Smoke: No Diet Comment: regular caffeine: Yes (1/2 cup a day) during the past year weight has: decreased > 10 lbs Dental Care, Regularly: Yes Physical Activity Frequency: Daily Seatbelt Use: always Sunscreen Use: No Assistive Devices: Walker and Wheelchair Allergies Allergies Allergy/AdvReac Type Severity Reaction Status Date / Time tramadol Allergy Mild ITCHY Verified 10/11/24 14:45 Home Meds Home Medications Medication Instructions Recorded Confirmed vitamins A,C,P-qmae-sihten 4,296 1 cap PO BID 08/06/21 10/11/24 mcg-226 mg-90 mg capsule (PreserVision AREDS) Prevagen 1 tab PO DAILY 11/03/23 10/11/24 acetaminophen 500 mg tablet 1,000 mg PO Q8H PRN Pain 12/31/23 10/11/24 (Tylenol Extra Strength) cholecalciferol (vitamin D3) 25 25 mcg PO DAILY 04/24/24 10/11/24 mcg (1,000 unit) capsule Previous Rx's Medication Instructions Recorded apixaban 2.5 mg tablet (Eliquis) 2.5 mg PO BID #60 tabs 03/20/24 ropinirole 0.25 mg tablet 0.25 mg PO HS #90 tabs 04/26/24 metoclopramide HCl 5 mg tablet 5 mg PO QID #120 tabs 05/26/24 (Reglan) metoprolol succinate 25 mg 25 mg PO QAM #90 tabs 05/26/24 tablet,extended release 24 hr buspirone 5 mg tablet 5 mg PO BID #180 tabs 06/29/24 ferrous sulfate 325 mg (65 mg 325 mg PO QAM #90 tabs 06/30/24 iron) tablet (Iron (ferrous sulfate)) omeprazole 40 mg capsule,delayed 40 mg PO QAM #90 caps 07/31/24 release pravastatin 40 mg tablet 40 mg PO QAM #90 tabs 07/31/24 nystatin 100,000 unit/gram topical 1 applic topical QID PRN rash #30 08/02/24 cream grams nystatin 100,000 unit/gram topical 1 applic topical QID PRN rash #60 08/02/24 powder grams Wheelchair (Manual) (Manual #1 ea 09/05/24 Wheelchair) amiodarone 200 mg tablet 200 mg PO QAM #90 tabs 09/06/24 famotidine 20 mg tablet 20 mg PO HS #90 tabs 09/11/24 magnesium oxide 400 mg (241.3 mg 400 mg PO BID #180 tabs 09/11/24 magnesium) tablet duloxetine 30 mg capsule,delayed 30 mg PO QPM #90 caps 10/25/24 release duloxetine 60 mg capsule,delayed 60 mg PO QAM #90 caps 11/21/24 release Results & Data (ED) Vital Signs Vital Signs - 24 hr 12/15/24 12:00 12/15/24 13:31 12/15/24 14:00 Temperature 36.5 C Temperature Source Temporal Artery Scan Pulse Rate 82 75 Pulse Rate [Finger] 69 Respiratory Rate 18 24 Respiratory Effort / Characteristics Non-Labored Spontaneous Respiratory Depth Normal Respiratory Pattern Regular Blood Pressure 134/78 Blood Pressure [Right Arm] 185/99 H Blood Pressure Mean 96 Blood Pressure Mean [Right Arm] 127 Blood Pressure Position Sitting Pulse Oximetry 94 95 Oxygen Delivery Method Room Air Room Air Sepsis Recent Fever Within 48 Hours No Sepsis New/Unexplained Change in Mental Status No Sepsis Action Taken by Nursing No Action Required Home Medications Current Medication List: was personally reviewed by me Laboratory Data Attestation: I reviewed the patient's lab results. 12/15/24 12:25 12/15/24 12:25 Lab Results 12/15/24 12/15/24 Range/Units 12:25 14:03 WBC 9.38 (4.8-10.8) K/ul RBC 4.26 (4.20-5.40) M/uL Hgb 13.6 (12.0-16.0) g/dl Hct 42.1 (37.0-47.0) % MCV 98.8 (80.0-100.0) fL MCH 31.9 (25.0-34.0) pg MCHC 32.3 (32.0-36.0) g/dL RDW Std Deviation 47.7 H (36.4-46.3) fL RDW Coeff of Tyra 13.0 (11.5-14.5) % Plt Count 243 (130-400) K/uL MPV 9.4 (9.4-12.4) fL Immature Gran % (Auto) 0.3 % Neut % (Auto) 76.4 % Lymph % (Auto) 15.2 % Clare % (Auto) 6.4 % Eos % (Auto) 1.2 % Baso % (Auto) 0.5 % Neut # (Auto) 7.16 H (1.40-6.50) K/uL Lymph # (Auto) 1.43 (1.20-3.40) K/uL Clare # (Auto) 0.60 H (0.11-0.59) K/uL Eos # (Auto) 0.11 (0.00-0.50) K/uL Baso # (Auto) 0.05 (0.00-0.20) K/uL Immature Gran # (Auto) 0.03 (0.01-0.20) K/uL VBG pH 7.37 (7.36-7.41) VBG pCO2 59 H (38-50) mmHg VBG pO2 33 mmHg VBG HCO3 34 mmol/L VBG O2 Saturation < 60.0 % VBG Base Excess 6.9 mEq/L Sodium 140 (136-145) mmol/L Potassium 4.6 (3.5-5.1) mmol/L Chloride 102 (98-107) mmol/L Carbon Dioxide 30 (21-32) mmol/L Anion Gap 8 (3-11) BUN 19 (6-23) mg/dl Creatinine 1.16 (0.6-1.2) mg/dl Est Cr Clr Drug Dosing Not Reportable eGFR 46.20 BUN/Creatinine Ratio 16.4 (10-20) Glucose 113 H (70-99(Fasting)) mg/dl Calcium 9.4 (8.6-10.3) mg/dl Magnesium 2.3 (1.7-2.4) mg/dl Total Bilirubin 0.6 (0.2-1.0) mg/dl AST 14 (13-39) U/L ALT 10 (7-52) U/L Alkaline Phosphatase 78 (34-104) U/L Ammonia 20.0 (18-72) umol/L Troponin I High Sens 7.7 (0-14) pg/ml Total Protein 7.2 (6.0-8.3) gm/dl Albumin 4.0 (3.4-5.0) gm/dl Globulin 3.2 (2.5-4.0) gm/dl Albumin/Globulin Ratio 1.3 (0.9-2) TSH 2.552 (0.300-4.500) uIu/ml Urine Color Yellow Urine Appearance Clear (Clear) Urine pH 6.5 (4.5-7.5) Ur Specific Mcbee 1.013 (1.000-1.030) Urine Protein Negative (Negative) Urine Glucose (UA) Negative (Negative) Urine Ketones Negative (Negative) Urine Blood Negative (Negative) Urine Nitrite Positive A (Negative) Urine Bilirubin Negative (Negative) Urine Urobilinogen Negative (Negative) Ur Leukocyte Esterase 2+ H (Negative) Urine WBC (Auto) 6-10 H (0-5) /hpf Urine RBC (Auto) 0-2 (0-2) /hpf U Hyaline Cast (Auto) 0-2 (0-2) /lpf U Epithel Cells (Auto) 0-2 (0-2) /hpf Urine Bacteria (Auto) 4+ H (None Seen) Urine Comment Administered Medications Discontinued Medications Sodium Chloride (Nss) 500 mls @ 999 mls/hr IV .Q31M JULIANE Stop: 12/15/24 12:45 Last Infusion: 12/15/24 13:20 Dose: Infused Documented By: Admin: 12/15/24 12:45 Dose: 999 mls/hr Documented By: CELI Sodium Chloride (Nss) 500 mls @ 999 mls/hr IV .Q31M ONE Stop: 12/15/24 14:30 Last Infusion: 12/15/24 14:43 Dose: Infused Documented By: Admin: 12/15/24 14:08 Dose: 999 mls/hr Documented By: CELI Imaging Data Radiologist's Impression: Chest X-Ray 12/15/24 12:07 XR chest 1V portable CLINICAL HISTORY: weakness COMPARISON STUDY: 12/09/2023 FINDINGS: There is stable prominent cardiomegaly with mild pulmonary vascular congestion. There is stable mild opacity at the left base with blunting of the left costophrenic angle. No pneumothorax seen. Stable old bilateral rib fractures. IMPRESSION: Stable exam. ACT 112: Negative or not required by law. Electronically signed by: Vishnu Plasencia M.D. 12/15/2024 1:[address] 09/12/25 12:07 CT head/brain wo con CLINICAL HISTORY: confused. TECHNIQUE: Multiple axial CT images of the head were obtained without contrast. A dose lowering technique was utilized adhering to the principles of ALARA. CT DOSE: 1312.65 mGy.cm COMPARISON: 11/02/2023 FINDINGS: There are stable severe chronic small vessel ischemic changes. No intracranial hemorrhage seen. No mass effect, midline shift, or hydrocephalus. No skull fracture seen. Visualized paranasal sinuses and mastoid air cells are clear. IMPRESSION: No acute findings. ACT 112: Negative or not required by law. The above report was generated using voice recognition software. It may contain grammatical, syntax or spelling errors. Electronically signed by: Vishnu Plasencia M.D. 12/15/2024 1:41 PM Discharge Plan Visit Data Chief Complaint: Urinary Symptoms Stated Complaint: UTI, CONFUSION ED Provider: Semaj Underwood Discharge Problem: Acute confusion, Hallucinations, Acute UTI Patient Disposition: Admitted As Inpatient Condition: Fair Forms Stand Alone Forms: [facility] [employer] Prescriptions Prescriptions: No Action PreserVision AREDS [id number] capsule 1 cap PO BID ropinirole 0.25 mg tablet 0.25 mg PO HS Qty: 90 1RF metoprolol succinate 25 mg tablet extended release 24 hr 25 mg PO QAM Qty: 90 2RF metoclopramide HCl [Reglan] 5 mg tablet 5 mg PO QID Qty: 120 1RF buspirone 5 mg tablet 5 mg PO BID Qty: 180 2RF ferrous sulfate [Iron (ferrous sulfate)] 325 mg (65 mg iron) tablet 325 mg PO QAM Qty: 90 2RF omeprazole 40 mg capsule,delayed release(DR/EC) 40 mg PO QAM Qty: 90 3RF pravastatin 40 mg tablet 40 mg PO QAM Qty: 90 3RF (DME) Manual Wheelchair Device See Rx Instructions .Route Qty: 1 0RF Rx Instructions: MANUAL WC W/ SEAT AND HAND BRAKES amiodarone 200 mg tablet 200 mg PO QAM Qty: 90 3RF duloxetine 30 mg capsule,delayed release(DR/EC) 30 mg PO QPM Qty: 90 4RF duloxetine 60 mg capsule,delayed release(DR/EC) 60 mg PO QAM Qty: 90 1RF Eliquis 2.5 mg tablet 2.5 mg PO BID Qty: 60 11RF famotidine 20 mg tablet 20 mg PO HS Qty: 90 1RF magnesium oxide 400 mg (241.3 mg magnesium) tablet 400 mg PO BID Qty: 180 3RF nystatin 100,000 unit/gram cream 1 applic topical QID PRN (Reason: rash) Qty: 30 5RF nystatin 100,000 unit/gram powder 1 applic topical QID PRN (Reason: rash) Qty: 60 4RF cholecalciferol (vitamin D3) 25 mcg (1,000 unit) capsule 25 mcg PO DAILY acetaminophen [Tylenol Extra Strength] 500 mg tablet 1,000 mg PO Q8H PRN (Reason: Pain) Prevagen 1 tab PO DAILY Referrals Referrals: Kimber Prater DO [Primary Care Provider] -
[2024-12-15 12:44] LABS: Base Excess VBG 6.9 mEq/L; HCO3 VBG 34 mmol/L; Oxygen Saturation VBG < 60.0 %; PCO2 VBG 59 mmHg (38-50); PO2 VBG 33 mmHg; pH VBG 7.37 (7.36-7.41)
[2024-12-15] MEDS: SODIUM CHLORIDE 0.9% 500 ML IV SCH (12:45)
[2024-12-15 12:51] LABS: Hematocrit (blood only) 42.1 % (37.0-47.0); Hemoglobin 13.6 g/dl (12.0-16.0); Immature Granulocytes # (auto) 0.03 K/uL (0.01-0.20); Immature Granulocytes % (auto) 0.3 %; Mean Corpuscular Hemoglobin 31.9 pg (25.0-34.0); Mean Corpuscular Volume 98.8 fL (80.0-100.0); Platelet Count 243 K/uL (130-400); RDW Standard Deviation 47.7 fL (36.4-46.3); Red Blood Count 4.26 M/uL (4.20-5.40); White Blood Count 9.38 K/ul (4.8-10.8)
[2024-12-15 13:11] LABS: Alanine Aminotransferase 10 U/L (7-52); Albumin Globulin Ratio 1.3 (0.9-2); Alkaline Phosphatase 78 U/L (34-104); Anion Gap 8 (3-11); Bilirubin,Total 0.6 mg/dl (0.2-1.0); Blood Urea Nitrogen 19 mg/dl (6-23); Calcium 9.4 mg/dl (8.6-10.3); Carbon Dioxide 30 mmol/L (21-32); Chloride 102 mmol/L (98-107); Globulin 3.2 gm/dl (2.5-4.0); Glucose 113 mg/dl (70-99(Fasting)); Magnesium 2.3 mg/dl (1.7-2.4); Potassium 4.6 mmol/L (3.5-5.1); Sodium 140 mmol/L (136-145); Total Protein 7.2 gm/dl (6.0-8.3)
[2024-12-15 13:26] LABS: Thyroid Stimulating Hormone 2.552 uIu/ml (0.300-4.500)
--- NOTE | 2024-12-15 13:42 | CT Scan Report ---
CT head/brain wo con CLINICAL HISTORY: confused. TECHNIQUE: Multiple axial CT images of the head were obtained without contrast. A dose lowering tech nique was utilized adhering to the principles of ALARA. CT DOSE: 1312.65 mGy.cm COMPARISON: 11/02/2023 FINDINGS: There are stable severe chronic small vessel ischemic changes. No intracranial hemorrhage s een. No mass effect, midline shift, or hydrocephalus. No skull fracture seen. Visualized paranasal si nuses and mastoid air cells are clear. IMPRESSION: No acute findings. ACT 112: Negative or not required by law. The above report was generated using voice recognition software. It may contain grammatical, syntax o r spelling errors. Electronically signed by: Vishnu Plasencia M.D. 12/15/2024 1:41 PM
--- NOTE | 2024-12-15 13:48 | XRay Report ---
XR chest 1V portable CLINICAL HISTORY: weakness COMPARISON STUDY: 12/09/2023 FINDINGS: There is stable prominent cardiomegaly with mild pulmonary vascular congestion. There is st able mild opacity at the left base with blunting of the left costophrenic angle. No pneumothorax seen . Stable old bilateral rib fractures. IMPRESSION: Stable exam. ACT 112: Negative or not required by law. Electronically signed by: Vishnu Plasencia M.D. 12/15/2024 1:47 PM
[2024-12-15] MEDS: SODIUM CHLORIDE 0.9% 500 ML IV ONE (14:08)
[2024-12-15 14:31] LABS: Appearance Urine Clear (Clear); Bacteria Urine Automated 4+ (None Seen); Cast Urine Automated 0-2 /lpf (0-2); Epithelial Cell Urine Auto 0-2 /hpf (0-2); Glucose Urine UA Negative (Negative); RBC Urine Automated 0-2 /hpf (0-2)
[2024-12-15] MEDS: cefTRIAXone SODIUM 2,000 MG/50 ML BAG IV STA (15:22)
[2024-12-15] MEDS: Patient's HEIGHT &/or WEIGHT Needed SCH (15:56)
--- NOTE | 2024-12-15 16:07 | History & Physical Report ---
Date of Service December 15, 2024 Assessment & Plan (1) Metabolic encephalopathy: Plan: As above in the History of Present Illness. (2) Acute UTI: Plan: As above in the History of Present Illness. (3) Acute dehydration: Plan: As above in the History of Present Illness. History of Present Illness Chief Complaint: "I'm seeing things that aren't there, or so my granddaughter, Bushra Valdez ([phone]) says." Primary Care Provider: Kimber Prater DO 84 years old female with PMH of FULL CODE @ home with daughter Sarah Valdez ( ) and granddaughter Bushra Valdez ( ), restless leg syndrome on ropinirole 0.25mg PO qhs, anxiety disorder on buspirone 5mg PO bid, major depression on duloxetine 60mg PO qam and duloxetine 30mg PO qpm, GERD on omeprazole 40mg PO am and famotidine 20mg PO qhs, hyperlipidemia on pravastatin 40mg PO qpm, paroxysmal AFIB on metoprolol succinate 25mg PO qam and apixaban 2.5mg PO bid, bedbound, wheelchair-bound for the past 2 years, wearing diaper/briefs on a daily basis, and multiple acute UTIs at home: cf., 09/05/2021, 11:37am urine culture (grimm-sensitive E. coli). cf., 09/22/2021, time ? urine culture (grimm-sensitive Pseudomonas). cf., 10/05/2021, 10:23pm urine culture (ESBL Klebsiella pneumoniae). cf., 02/03/2022, 9:59am urine culture (ESBL Klebsiella pneumoniae). cf., 06/25/2022, 11:35am urine culture (grimm-sensitive Proteus mirabilis). cf., 11/18/2022, 3:00pm urine culture (ESBL Klebsiella pneumoniae). cf., 01/27/2023, 1:16pm urine culture (ESBL Klebsiella pneumoniae). cf., 02/09/2023, 5:25pm urine culture (ESBL Klebsiella pneumoniae). cf., 03/01/2023, 3:20pm urine culture (ESBL Klebsiella pneumoniae). cf., 03/16/2023, 12:05am urine culture (VRE faecium; Shea albicans/dubliniensis). cf., 04/02/2023, 3:00pm urine culture (ertapenem-sensitive, meropenem- sensitive, gentamicin-sensitive, zosyn-sensitive Klebsiella aerogenes). cf., 07/13/2023, 4:47pm urine culture (Lactobacillus). cf., 12/08/2023, 2:46pm urine culture (grimm-sensitive Proteus mirabilis). cf., 12/09/2023, time ? urine culture (grimm-sensitive Proteus mirabilis). cf., 01/31/2024, 2:02pm urine culture (ESBL Klebsiella pneumoniae). cf., 04/24/2024, time ? urine culture (ESBL Klebsiella pneumoniae). cf., 06/07/2024, 3:26pm urine culture (levofloxacin-resistant, ciprofloxacin- resistant, nitrofurantoin-intermediate Klebsiella pneumoniae). cf., 07/19/2024, 1:27pm urine culture (levofloxacin-resistant, ciprofloxacin- resistant, nitrofurantoin-intermediate Klebsiella pneumoniae). cf., 10/04/2024, 1:54pm urine culture (levofloxacin-resistant, ciprofloxacin- resistant, nitrofurantoin-intermediate Klebsiella pneumoniae). Patient present with acute onset of visual hallucinations for the past 24 hours at home. Patient denies antecedent/coincident fevers, chills, diaphoresis, cough, wheeze, sore throat, hemoptysis, chest pains, palpitations, pleurisy, shortness of breath, dyspnea on exertion, nausea, vomiting, diarrhea, abdominal pain, pelvic pain, flank pain, hematemesis, hematochezia, melena, hematuria, dysuria, frequency, urgency, headaches, dizziness, lightheadedness, visual changes, hearing changes, weakness, falls, syncope, trauma, travel history, sick contacts, or food/drug ingestions novel or new. All other review of systems are reported as negative by the patient on admission date 12/15/2024. In [facility] ER bed #A11, patient was afebrile @ 36.5 degrees Celsius, HR 69, RR 24, O2 sat 95% on room air, and BP 185/99 (12/15/2024, 2:00pm). Exam was noted for an elderly female who appeared wide awake and alert, and who was not confused, lethargic, or obtunded. Patient spoke in complete, fluent, and articulate sentences without pause, interruption, cough, or wheeze. Labs in [facility] ER bed #A11 included: U/A (12/15/2024, 2:03pm): clear yellow, nitrite+, LE 2+, WBC 6-10, RBC 0-2, bacteria 4+, epithelial cells 0-2 urine culture (12/15/2024, 2:03pm): WBC 9.38, N76 L15 M6 E1 B1, Hb 13.6, MCV 98.8, MCHC 32.3, platelet 243 (12/15/2024, 12:25pm). VBG 7.37 / 59 / 33 / 34 / O2 sat < 60% (12/15/2024, 12:25pm). Na 140, K 4.6, BUN 19, creatinine 1.16, glucose 113, Ca 9.4, Mg 2.3, AST 14, ALT 10, ALK PHOS 78, TBili 0.6 (12/15/2024, 12:25pm). NH3 20 umol/L (12/15/2024, 12:25pm). TSH 2.552 uIU/mL (12/15/2024). Additional testing in [facility] ER bed #A11 included: Portable CXR (12/15/2024, 12:07pm): 1. Cardiomegaly with mild pulmonary vascular congestion. 2. LLL atelectasis. 3. No infiltrate, effusion, or pneumothorax. (by my review). CT brain without IV contrast (12/15/2024, 12:07pm): 1. No acute bleed, mass, or midline shift. Patient was subsequently admitted to the inpatient hospitalist service @ [facility] on 12/15/2024 with the following diagnoses: 1. Acute metabolic encephalopathy due to [id number] UTI, most probably due to habitual dependence on diapers/briefs to collect stool and urine at home on a daily basis. 2. Acute dehydration with BUN:creatinine ratio approaching, but not quite reaching the absolute cut-off of > 20:1 (cf., BUN 19, creatinine 1.16, 12/15/2024, 12:25pm). To address #1, patient received ceftriaxone 2g IV x 1 dose (12/15/2024, 3:22pm) in [facility] ER bed #A11. Patient will continue with ceftriaxone 1g IV daily x 2 doses (12/16/2024, 9:00am; 12/17/2024, 9:00am) in [facility] Med-Surg floor to conclude treatment of presumed recurrent Klebsiella pneumoniae UTI. In the interim, I will check vitals, genito-urinary exam, WBC w/diff, and urine culture (12/15/2024, 2:03pm) in the 12/16/2024 am. To address #2, patient received 0.5 liter of 0.9% NS @ 999 mL/hr (12/15/2024, 12:45pm), followed by 0.5 liter of 0.9% NS @ 999 mL/hr (12/15/2024, 2:01pm) in [facility] ER bed #A11. Patient was subsequently started on a regular diet PO ad libitum on 12/15/2024, 2:31pm. I will check repeat BUN:creatinine ratio in the 12/16/2024 am. Of note, etiology of acute dehydration is due to increased insensible fluid losses in higher than normal urine flow(s), which in turn, are due to [id number] UTI. Allergies Allergy/AdvReac Type Severity Reaction Status Date / Time tramadol Allergy Mild ITCHY Verified 10/11/24 14:45 Home Medications Medication Instructions Recorded Confirmed Type vitamins A,C,T-uxdg-zexnxc 4,296 1 cap PO BID 08/06/21 12/15/24 History mcg-226 mg-90 mg capsule (PreserVision AREDS) Prevagen 1 tab PO DAILY 11/03/23 12/15/24 History acetaminophen 500 mg tablet 1,000 mg PO Q8H PRN Pain 12/31/23 12/15/24 History (Tylenol Extra Strength) apixaban 2.5 mg tablet (Eliquis) 2.5 mg PO BID #60 tabs 03/20/24 12/15/24 Rx cholecalciferol (vitamin D3) 25 25 mcg PO DAILY 04/24/24 12/15/24 History mcg (1,000 unit) capsule ropinirole 0.25 mg tablet 0.25 mg PO HS #90 tabs 04/26/24 12/15/24 Rx metoclopramide HCl 5 mg tablet 5 mg PO QID #120 tabs 05/26/24 12/15/24 Rx (Reglan) metoprolol succinate 25 mg 25 mg PO QAM #90 tabs 05/26/24 12/15/24 Rx tablet,extended release 24 hr buspirone 5 mg tablet 5 mg PO BID #180 tabs 06/29/24 12/15/24 Rx ferrous sulfate 325 mg (65 mg 325 mg PO QAM #90 tabs 06/30/24 12/15/24 Rx iron) tablet (Iron (ferrous sulfate)) omeprazole 40 mg capsule,delayed 40 mg PO QAM #90 caps 07/31/24 12/15/24 Rx release pravastatin 40 mg tablet 40 mg PO QAM #90 tabs 07/31/24 12/15/24 Rx nystatin 100,000 unit/gram topical 1 applic topical QID PRN rash #30 08/02/24 12/15/24 Rx cream grams nystatin 100,000 unit/gram topical 1 applic topical QID PRN rash #60 08/02/24 12/15/24 Rx powder grams Wheelchair (Manual) (Manual #1 ea 09/05/24 10/11/24 Rx Wheelchair) amiodarone 200 mg tablet 200 mg PO QAM #90 tabs 09/06/24 12/15/24 Rx famotidine 20 mg tablet 20 mg PO HS #90 tabs 09/11/24 12/15/24 Rx magnesium oxide 400 mg (241.3 mg 400 mg PO BID #180 tabs 09/11/24 12/15/24 Rx magnesium) tablet duloxetine 30 mg capsule,delayed 30 mg PO QPM #90 caps 10/25/24 12/15/24 Rx release duloxetine 60 mg capsule,delayed 60 mg PO QAM #90 caps 11/21/24 12/15/24 Rx release Past Med/Surg History Problem List (Updated 12/15/24 @ 16:50 by Srinivas Patel MD, PhD) Acute dehydration Metabolic encephalopathy Acute UTI (Acute) Hallucinations (Acute) Acute confusion (Acute) Disc degeneration, lumbar Depression Anxiety Cholelithiases Atelectasis 12/09/23 Right kidney stone Hx of delirium Recurrent UTI (Acute) Urinary incontinence Ambulatory dysfunction Venous insufficiency of both lower extremities Chronic anticoagulation Diastolic dysfunction LVH (left ventricular hypertrophy) Lumbar spinal stenosis Vitamin D deficiency Osteoporosis Hearing difficulty Osteoarthritis Macular degeneration Scoliosis Anemia Medical History Fracture, tibial plateau (~11/03/23) left knee- comminuted, intra-articular and depressed lateral tibial plateau fracture with fracture extension into the tibial spines and lateral proximal tibial metadiaphysis. Fracture of tibial plateau, closed (11/03/23) left knee- comminuted, intra-articular and depressed lateral tibial plateau fracture with fracture extension into the tibial spines and lateral proximal tibial metadiaphysis from a fall Pelvic pressure in female Pyelonephritis Hydronephrosis with urinary obstruction due to renal calculus History of fractured kneecap (11/2023) no surgical intervention required. LVH (left ventricular hypertrophy) per medical record History of closed fracture hx of closed rib fracture 03/2022 hx of closed hip fracture 06/2021 On anticoagulant therapy Recurrent UTI Kidney stones Scoliosis Macular degeneration Hx of pleural effusion (01/2022) bilateral s/p chest tube placement (r/t hiatal hernia repair) History of COVID-19 02/2023 - while inpatient for a UTI - resolved. Urinary tract infection due to extended-spectrum beta lactamase (ESBL)-producing Klebsiella Restless leg Grief Loss of spouse August 2018 Diverticulosis Mitral regurgitation moderate. 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 Status post arthroscopic partial medial meniscectomy (11/02/17) R knee H/O bilateral oophorectomy (04/12/17) BSO = 04/12/17= GRADE VIEW 2, MAC 3, ETT 7.5 AT [facility] History of hysterectomy (1988) History of total hip arthroplasty right History of tooth extraction History of tonsillectomy History of adenoidectomy History of cataract surgery bilateral Family History Father Coronary heart disease Kidney disease Colorectal cancer Lung disease Mother Coronary heart disease Myocardial infarction Gallbladder disease Sister Diabetes Colorectal cancer Family/Other Diabetes Other No family history of adverse response to anesthesia Denies family history of Ovarian cancer Prostate cancer Breast cancer Social History (Updated 12/15/24 @ 16:49 by Srinivas Patel MD, PhD) Smoking Status: Never smoker Second Hand Exposure: No; Do You Dip or Chew Tobacco: No; Hx Alcohol Use: No Hx Substance Use: No Preferred Language: [place] Communication Ability: Effective Visual Impairment: No Limitations Hearing Ability: Use of Hearing Aid Explosive Specialist Required: No Beliefs That Will Affect Care: None marital status: marital status details: for 18 yrs, then ; ex- on August 2018 Current Living Situation: Family Current Living Situation Comment: lives w/ daughter #1 Sandra, ;daughter #2 is mentally ill current occupational status: 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 Physical Exam Constitutional: General: Comfortable, cooperative, coherent. Wide awake and alert. Not confused, lethargic, or obtunded. Patient speaks in complete, fluent, and articulate sentences without pause, interruption, cough, or wheeze. HEENT: Normocephalic, atraumatic. Extra-ocular muscles intact. Pupils equally round and reactive to light. No nystagmus, gaze paresis, anisocoria, miosis, mydriasis, hyphema, chemosis, scleral injection, conjunctivitis, or pterygium. No otorrhea or rhinorrhea. No pharyngeal discharge or exudate. Neck: Supple, no stridor or bruit. Jugular venous pressure is estimated to be 3 cm above the sternal angle of Germán, which is, by definition, 5 cm above the level of the right atrium. Hence, jugular venous pressure of 8 cm is not elevated on discharge date 12/15/2024. Lymphatics: No anterior/posterior cervical, infraclavicular, supraclavicular, axillary, epitrochlear, or inguinal adenopathy. Chest: Symmetric rise and fall with respirations. Non-tender to palpation. Lungs: Clear to auscultation and percussion. No audible expiratory wheeze, egophony, pectoriloquy, increase in tactile fremitus, or flatness/dullness to percussion at the bases. Heart: Regular rate and rhythm. S1 and S2 noted. No S3 or S4 summation gallop. No tripartite friction rub. Grade II/ early systolic murmur at left lower sternal border without radiation to the carotids, axilla, or back, and which remains invariant in regards to the respiratory cycle. Abdomen: Soft, non-tender, non-distended. No rebound, guarding, Taylor's sign, or organomegaly. Bowel sounds auscultated in all 4 quadrants. Extremities: No clubbing, cyanosis, or edema. 2+ pedal pulses bilaterally. Skin: No decubitus ulcer, exanthem, or enanthem. Urology: No rosario catheter. No purewick. No urethral discharge. Neurology: Alert and oriented in regards to person, place, time, and situation. DTR+. 5/5 motor strength in all 4 extremities, both proximally and distally. Psychiatry: No flat affect. No monotone voice. Smiles appropriately. Results & Data Results & Data Vital Signs (Past 12 Hours) Vital Signs Temp Pulse Pulse Resp BP BP Pulse Ox 12/15/24 14:00 69 24 185/99 H 95 12/15/24 13:31 75 12/15/24 12:00 36.5 C 82 18 134/78 94 O2 Del Method 12/15/24 14:00 Room Air 12/15/24 13:31 12/15/24 12:00 Room Air Laboratory Results As above in the History of Present Illness. Diagnostic Findings As above in the History of Present Illness. Medications Administered As above in the History of Present Illness. Code Status & VTE Plan VTE Prophylaxis Plan VTE Prophylaxis will be ordered: Yes PG Care Time/CCT Total # of Minutes Spent Total Time Spent with Patient: Total time spent is greater than 50% in coordination of care (as documented) at patient's floor/unit and/or counseling patient: Coding Level of Care Code 05631 INT INP/OBS CARE 3/75MIN Diagnoses Metabolic encephalopathy G93.41 Acute UTI N39.0 Acute dehydration E86.0
[2024-12-15] MEDS ORDERED: HEPARIN SOD 5,000 UNIT/0.5 ML VIAL SQ SCH (21:00)
[2024-12-15] MEDS: ACETAMINOPHEN 325 MG TAB PO PRN (22:01)
[2024-12-15] MEDS: APIXABAN 2.5 MG TAB PO SCH (22:01)
[2024-12-15] MEDS: busPIRone 5 MG TAB PO SCH (22:02)
[2024-12-15] MEDS: FAMOTIDINE 20 MG TAB PO SCH (22:03)
--- NOTE | 2024-12-15 22:48 | Electrocardiogram Report ---
Test Reason : Blood Pressure : */* mmHG Vent. Rate : 75 BPM Atrial Rate : 75 BPM P-R Int : 234 ms QRS Dur : 102 ms QT Int : 402 ms P-R-T Axes : 61 -28 90 degrees QTcB Int : 448 ms Sinus rhythm with 1st degree A-V block Left ventricular hypertrophy with repolarization abnormality ( Bob product ) Poor R wave progression, consider anterior VT vs. lead placement vs. LVH Abnormal ECG When compared with ECG of 09-Dec-2023 18:41, No significant change was found Confirmed by Atif Pryor ([id number]) on 12/15/2024 10:48:21 PM Referred By: REFERRED SELF Confirmed By: Atif Pryor
[2024-12-16] MEDS: AMIODARONE 200 MG TAB PO SCH (07:51)
[2024-12-16] MEDS: METOPROLOL SUCC 25MG EXT REL TAB PO SCH (07:51)
[2024-12-16] MEDS: cefTRIAXone SODIUM 2,000 MG/50 ML BAG IV SCH (07:55)
--- NOTE | 2024-12-16 15:40 | Hospitalist Progress Note ---
Date of Service December 16, 2024 Assessment & Plan (1) Metabolic encephalopathy: Plan: [facility] [place] [address] History & Physical Report Signed Patient: WARREN GUZMAN Admit Date: 12/15/24 MR#: [id number] Att Phy: Acct ID: [id number] Julianna Phy: JarrettclarisaKimber DO Aye Date: 1940 Fam Phy: Age: 84 Location: ED Sex: F Room/Bed: Legal Sex: F cc: ~ *NOTICE TO RECEIVING DEMOCRAT/AGENCY This information is strictly Confidential and protected under [place] law. [place] law prohibits you from making any further disclosure of this information unless further disclosure is expressly permitted by the written consent of the person to whom it pertains or is authorized by law. A general authorization for the release of medical or other information is not sufficient for this purpose. Hospital accepts no responsibility if the information is made available to any other person, INCLUDING THE PATIENT. Date of Service December 15, 2024 Assessment & Plan (1) Metabolic encephalopathy: Plan: As above in the History of Present Illness. (2) Acute UTI: Plan: As above in the History of Present Illness. (3) Acute dehydration: Plan: As above in the History of Present Illness. History of Present Illness Chief Complaint: "I'm seeing things that aren't there, or so my granddaughter, Bushra Valdez ([phone]) says." Primary Care Provider: Kimber Prater DO 84 years old female with PMH of FULL CODE @ home with daughter Sarah Valdez ( ) and granddaughter Bushra Valdez ( ), restless leg syndrome on ropinirole 0.25mg PO qhs, anxiety disorder on buspirone 5mg PO bid, major depression on duloxetine 60mg PO qam and duloxetine 30mg PO qpm, GERD on omeprazole 40mg PO am and famotidine 20mg PO qhs, hyperlipidemia on pravastatin 40mg PO qpm, paroxysmal AFIB on metoprolol succinate 25mg PO qam and apixaban 2.5mg PO bid, bedbound, wheelchair-bound for the past 2 years, wearing diaper/briefs on a daily basis, and multiple acute UTIs at home: cf., 09/05/2021, 11:37am urine culture (grimm-sensitive E. coli). cf., 09/22/2021, time ? urine culture (grimm-sensitive Pseudomonas). cf., 10/05/2021, 10:23pm urine culture (ESBL Klebsiella pneumoniae). cf., 02/03/2022, 9:59am urine culture (ESBL Klebsiella pneumoniae). cf., 06/25/2022, 11:35am urine culture (grimm-sensitive Proteus mirabilis). cf., 11/18/2022, 3:00pm urine culture (ESBL Klebsiella pneumoniae). cf., 01/27/2023, 1:16pm urine culture (ESBL Klebsiella pneumoniae). cf., 02/09/2023, 5:25pm urine culture (ESBL Klebsiella pneumoniae). cf., 03/01/2023, 3:20pm urine culture (ESBL Klebsiella pneumoniae). cf., 03/16/2023, 12:05am urine culture (VRE faecium; Seha albicans/dubliniensis). cf., 04/02/2023, 3:00pm urine culture (ertapenem-sensitive, meropenem- sensitive, gentamicin-sensitive, zosyn-sensitive Klebsiella aerogenes). cf., 07/13/2023, 4:47pm urine culture (Lactobacillus). cf., 12/08/2023, 2:46pm urine culture (grimm-sensitive Proteus mirabilis). cf., 12/09/2023, time ? urine culture (grimm-sensitive Proteus mirabilis). cf., 01/31/2024, 2:02pm urine culture (ESBL Klebsiella pneumoniae). cf., 04/24/2024, time ? urine culture (ESBL Klebsiella pneumoniae). cf., 06/07/2024, 3:26pm urine culture (levofloxacin-resistant, ciprofloxacin- resistant, nitrofurantoin-intermediate Klebsiella pneumoniae). cf., 07/19/2024, 1:27pm urine culture (levofloxacin-resistant, ciprofloxacin- resistant, nitrofurantoin-intermediate Klebsiella pneumoniae). cf., 10/04/2024, 1:54pm urine culture (levofloxacin-resistant, ciprofloxacin- resistant, nitrofurantoin-intermediate Klebsiella pneumoniae). Patient present with acute onset of visual hallucinations for the past 24 hours at home. Patient was subsequently admitted to the inpatient hospitalist service @ [facility] on 12/15/2024 with the following diagnoses: 1. Acute metabolic encephalopathy due to [id number] UTI, most probably due to habitual dependence on diapers/briefs to collect stool and urine at home on a daily basis. 2. Acute dehydration with BUN:creatinine ratio approaching, but not quite reaching the absolute cut-off of > 20:1 (cf., BUN 19, creatinine 1.16, 12/15/2024, 12:25pm). To address #1, patient received ceftriaxone 2g IV x 1 dose (12/15/2024, 3:22pm) in [facility] ER bed #A11. Patient will continue with ceftriaxone 1g IV daily x 2 doses (12/16/2024, 9:00am; 12/17/2024, 9:00am) in [facility] Med-Surg floor to conclude treatment of presumed recurrent Klebsiella pneumoniae UTI. In the interim, I will check vitals, genito-urinary exam, WBC w/diff, and urine culture (12/15/2024, 2:03pm) in the 12/17/2024 am. To address #2, patient received 0.5 liter of 0.9% NS @ 999 mL/hr (12/15/2024, 12:45pm), followed by 0.5 liter of 0.9% NS @ 999 mL/hr (12/15/2024, 2:01pm) in [facility] ER bed #A11. Patient was subsequently started on a regular diet PO ad libitum on 12/15/2024, 2:31pm. I will check repeat BUN:creatinine ratio in the 12/17/2024 am. Of note, etiology of acute dehydration is due to increased insensible fluid losses in higher than normal urine flow(s), which in turn, are due to [id number] UTI. (2) Acute UTI: Plan: See bullet #1 above. (3) Acute dehydration: Plan: See bullet #1 above. Admission and Anticipated Discharge Date Admission Date: December 15, 2024 Subjective "I feel better today (12/16/2024) than yesterday (12/15/2024). The antibiotics are working." Review of Systems Constitutional: Negative for antecedent/coincident fevers, chills, diaphoresis, cough, wheeze, sore throat, hemoptysis, shortness of breath, dyspnea on exertion, chest pains, palpitations, pleurisy, nausea, vomiting, diarrhea, abdominal pain, pelvic pain, hematemesis, hematochezia, melena, hematuria, dysuria, frequency, urgency, flank pain, headaches, dizziness, lightheadedness, visual changes, hearing changes, weakness, falls, syncope, trauma, travel history, sick contacts, or food/drug ingestions novel or new. All other review of systems are reported as negative by the patient on 12/16/2024. Physical Exam Constitutional: General: Comfortable, cooperative, coherent. Wide awake and alert. Not confused, lethargic, or obtunded. Patient speaks in complete, fluent, and articulate sentences without pause, interruption, cough, or wheeze. HEENT: Normocephalic, atraumatic. Extra-ocular muscles intact. Pupils equally round and reactive to light. No nystagmus, gaze paresis, anisocoria, miosis, mydriasis, hyphema, chemosis, scleral injection, conjunctivitis, or pterygium. No otorrhea or rhinorrhea. No pharyngeal discharge or exudate. Neck: Supple, no stridor or bruit. Jugular venous pressure is estimated to be 3 cm above the sternal angle of Germán, which is, by definition, 5 cm above the level of the right atrium. Hence, jugular venous pressure of 8 cm is not elevated on 12/16/2024. Lymphatics: No anterior/posterior cervical, infraclavicular, supraclavicular, axillary, epitrochlear, or inguinal adenopathy. Chest: Symmetric rise and fall with respirations. Non-tender to palpation. Lungs: Clear to auscultation and percussion. No audible expiratory wheeze, egophony, pectoriloquy, increase in tactile fremitus, or flatness/dullness to percussion at the bases. Heart: Regular rate and rhythm. S1 and S2 noted. No S3 or S4 summation gallop. No tripartite friction rub. Grade II/ early systolic murmur at left lower sternal border without radiation to the carotids, axilla, or back, and which remains invariant in regards to the respiratory cycle. Abdomen: Soft, non-tender, non-distended. No rebound, guarding, Taylor's sign, or organomegaly. Bowel sounds auscultated in all 4 quadrants. Extremities: No clubbing, cyanosis, or edema. 2+ pedal pulses bilaterally. Skin: No decubitus ulcer, exanthem, or enanthem. Urology: No rosario catheter. No purewick. No urethral discharge. Neurology: Alert and oriented in regards to person, place, time, and situation. DTR+. 5/5 motor strength in all 4 extremities, both proximally and distally. Psychiatry: No flat affect. No monotone voice. Smiles appropriately. Results & Data Results & Data Vital Signs (Past 12 Hours) Vital Signs Temp Pulse Resp BP Pulse Ox O2 Del Method 12/16/24 14:26 36.7 C 70 16 135/80 95 Room Air 12/16/24 07:42 36.7 C 76 16 162/86 H 94 Room Air Laboratory Results U/A (12/15/2024, 2:03pm): clear yellow, nitrite+, LE 2+, WBC 6-10, RBC 0-2, bacteria 4+, epithelial cells 0-2 urine culture (12/15/2024, 2:03pm): Klebsiella pneumoniae WBC 9.38, N76 L15 M6 E1 B1, Hb 13.6, MCV 98.8, MCHC 32.3, platelet 243 (12/15/2024, 12:25pm). VBG 7.37 / 59 / 33 / 34 / O2 sat < 60% (12/15/2024, 12:25pm). Na 140, K 4.6, BUN 19, creatinine 1.16, glucose 113, Ca 9.4, Mg 2.3, AST 14, ALT 10, ALK PHOS 78, TBili 0.6 (12/15/2024, 12:25pm). NH3 20 umol/L (12/15/2024, 12:25pm). TSH 2.552 uIU/mL (12/15/2024). Diagnostic Findings Portable CXR (12/15/2024, 12:07pm): 1. Cardiomegaly with mild pulmonary vascular congestion. 2. LLL atelectasis. 3. No infiltrate, effusion, or pneumothorax. (by my review). CT brain without IV contrast (12/15/2024, 12:07pm): 1. No acute bleed, mass, or midline shift. PG Care Time/CCT Total # of Minutes Spent Total Time Spent with Patient: Total time spent is greater than 50% in coordination of care (as documented) at patient's floor/unit and/or counseling patient: Coding Level of Care Code 95227 SUB INP/OBS CARE 2/35MIN Diagnoses Metabolic encephalopathy G93.41 Acute UTI N39.0 Acute dehydration E86.0
[2024-12-16] MEDS: SODIUM CHLORIDE 0.9% 1,000 ML IV ONE (15:43)
[2024-12-16 16:23] LABS: Hematocrit (blood only) 38.3 % (37.0-47.0); Hemoglobin 12.1 g/dl (12.0-16.0); Immature Granulocytes # (auto) 0.02 K/uL (0.01-0.20); Immature Granulocytes % (auto) 0.3 %; Mean Corpuscular Hemoglobin 31.0 pg (25.0-34.0); Mean Corpuscular Volume 98.2 fL (80.0-100.0); Platelet Count 209 K/uL (130-400); RDW Standard Deviation 48.3 fL (36.4-46.3); Red Blood Count 3.90 M/uL (4.20-5.40); White Blood Count 6.86 K/ul (4.8-10.8)
[2024-12-16 16:37] LABS: Anion Gap 4.0 (3-11); Blood Urea Nitrogen 17.0 mg/dl (6-23); Calcium 8.9 mg/dl (8.6-10.3); Carbon Dioxide 31.0 mmol/L (21-32); Chloride 105.0 mmol/L (98-107); Creatinine Clr Calc Pharmacy 40.0 ml/min; Glucose 102.0 mg/dl (70-99(Fasting)); Potassium 5.1 mmol/L (3.5-5.1); Sodium 140.0 mmol/L (136-145)
[2024-12-17 06:11] LABS: Hematocrit (blood only) 39.9 % (37.0-47.0); Hemoglobin 12.4 g/dl (12.0-16.0); Immature Granulocytes # (auto) 0.03 K/uL (0.01-0.20); Immature Granulocytes % (auto) 0.4 %; Mean Corpuscular Hemoglobin 30.8 pg (25.0-34.0); Mean Corpuscular Volume 99.0 fL (80.0-100.0); Platelet Count 196 K/uL (130-400); RDW Standard Deviation 48.1 fL (36.4-46.3); Red Blood Count 4.03 M/uL (4.20-5.40); White Blood Count 7.03 K/ul (4.8-10.8)
[2024-12-17 06:32] LABS: Anion Gap 4.0 (3-11); Blood Urea Nitrogen 15.0 mg/dl (6-23); Calcium 8.7 mg/dl (8.6-10.3); Carbon Dioxide 31.0 mmol/L (21-32); Chloride 105.0 mmol/L (98-107); Creatinine Clr Calc Pharmacy 45.3 ml/min; Glucose 103.0 mg/dl (70-99(Fasting)); Potassium 4.2 mmol/L (3.5-5.1); Sodium 140.0 mmol/L (136-145)
[2024-12-17 07:00] VITALS: BP 162/74; PULSE 65; RESP 16; TEMP 97.5; O2SAT 95
--- NOTE | 2024-12-17 13:21 | Discharge Summary ---
Discharge Summary Date of Service December 17, 2024 Principal Dx & Hospital Course #1 = Principal Diagnosis (1) Metabolic encephalopathy: 84 years old female with PMH of FULL CODE @ home with daughter Sarah Valdez ( ) and granddaughter Bushra Valdez ( ), restless leg syndrome on ropinirole 0.25mg PO qhs, anxiety disorder on buspirone 5mg PO bid, major depression on duloxetine 60mg PO qam and duloxetine 30mg PO qp m, GERD on omeprazole 40mg PO am and famotidine 20mg PO qhs, hyperlipidemia on pravastatin 40mg PO qpm, paroxysmal AFIB on metoprolol succinate 25mg PO qam and apixaban 2.5mg PO bid, bedbound, wheelchair-bound for the past 2 years, wearing diaper/briefs on a daily basis, and multiple acute UTIs at home: cf., 09/05/2021, 11:37am urine culture (grimm-sensitive E. coli). cf., 09/22/2021, time ? urine culture (grimm-sensitive Pseudomonas). cf., 10/05/2021, 10:23pm urine culture (ESBL Klebsiella pneumoniae). cf., 02/03/2022, 9:59am urine culture (ESBL Klebsiella pneumoniae). cf., 06/25/2022, 11:35am urine culture (grimm-sensitive Proteus mirabilis). cf., 11/18/2022, 3:00pm urine culture (ESBL Klebsiella pneumoniae). cf., 01/27/2023, 1:16pm urine culture (ESBL Klebsiella pneumoniae). cf., 02/09/2023, 5:25pm urine culture (ESBL Klebsiella pneumoniae). cf., 03/01/2023, 3:20pm urine culture (ESBL Klebsiella pneumoniae). cf., 03/16/2023, 12:05am urine culture (VRE faecium; Shea albicans/dubliniensis). cf., 04/02/2023, 3:00pm urine culture (ertapenem-sensitive, meropenem- sensitive, gentamicin-sensitive, zosyn-sensitive Klebsiella aerogenes). cf., 07/13/2023, 4:47pm urine culture (Lactobacillus). cf., 12/08/2023, 2:46pm urine culture (grimm-sensitive Proteus mirabilis). cf., 12/09/2023, time ? urine culture (grimm-sensitive Proteus mirabilis). cf., 01/31/2024, 2:02pm urine culture (ESBL Klebsiella pneumoniae). cf., 04/24/2024, time ? urine culture (ESBL Klebsiella pneumoniae). cf., 06/07/2024, 3:26pm urine culture (levofloxacin-resistant, ciprofloxacin- resistant, nitrofurantoin-intermediate Klebsiella pneumoniae). cf., 07/19/2024, 1:27pm urine culture (levofloxacin-resistant, ciprofloxacin- resistant, nitrofurantoin-intermediate Klebsiella pneumoniae). cf., 10/04/2024, 1:54pm urine culture (levofloxacin-resistant, ciprofloxacin- resistant, nitrofurantoin-intermediate Klebsiella pneumoniae). Patient present with acute onset of visual hallucinations for the past 24 hours at home. Patient was subsequently admitted to the inpatient hospitalist service @ [facility] on 12/15/2024 with the following diagnoses: 1. Acute metabolic encephalopathy due to [id number] UTI, most probably due to habitual dependence on diapers/briefs to collect stool and urine at home on a daily basis, RESOLVED. 2. Acute dehydration with BUN:creatinine ratio approaching, but not quite reaching the absolute cut-off of > 20:1 (cf., BUN 19, creatinine 1.16, 12/15/2024, 12:25pm), RESOLVED. To address #1, patient received ceftriaxone 2g IV x 1 dose (12/15/2024, 3:22pm) in [facility] ER bed #A11. 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 Patient feels well and wants to go home on 12/17/2024. Patient was subsequently discharged back to her home on 12/17/2024 off any/all antibiotics. In addition, patient's daughter Sarah Valdez ( ) and granddaughter Bushra Valdez ( ) informed me that they will obtain a bidet for the patient's toilet seat to improve patient's bathroom hygiene in an attempt to prevent RECURRENT Klebsiella pneuoniae UTI #12 (see list above with 11 prior episodes of Klebsiella pneumoniae UTIs from 10/05/2021, 10:23pm urine culture to 10/04/2024, 1:54pm urine culture). To address #2, patient received 0.5 liter of 0.9% NS @ 999 mL/hr (12/15/2024, 12:45pm), followed by 0.5 liter of 0.9% NS @ 999 mL/hr (12/15/2024, 2:01pm) in [facility] ER bed #A11. Patient was subsequently started on a regular diet PO ad libitum on 12/15/2024, 2:31pm. Subsequently, BUN/creatinine ratios decreased as shown below: cf., BUN 19, creatinine 1.16; BUN:creatinine ratio 16.4 (12/15/2024, 12:25pm). cf., BUN 17, creatinine 1.12; BUN:creatinine ratio 15.2 (12/16/2024, 3:57pm). cf., BUN 15, creatinine 0.99; BUN:creatinine ratio 15.2 (12/17/2024, 5:44am). (2) Acute UTI: See bullet #1 above. (3) Acute dehydration: See bullet #1 above. Admission HPI Per Admitting Provider 84 years old female with PMH of FULL CODE @ home with daughter Sarah Valdez ( ) and granddaughter Bushra Valdez ( ), restless leg syndrome on ropinirole 0.25mg PO qhs, anxiety disorder on buspirone 5mg PO bid, major depression on duloxetine 60mg PO qam and duloxetine 30mg PO qpm, GERD on omeprazole 40mg PO am and famotidine 20mg PO qhs, hyperlipidemia on pravastatin 40mg PO qpm, paroxysmal AFIB on metoprolol succinate 25mg PO qam and apixaban 2.5mg PO bid, bedbound, wheelchair-bound for the past 2 years, wearing diaper/briefs on a daily basis, and multiple acute UTIs at home: cf., 09/05/2021, 11:37am urine culture (grimm-sensitive E. coli). cf., 09/22/2021, time ? urine culture (grimm-sensitive Pseudomonas). cf., 10/05/2021, 10:23pm urine culture (ESBL Klebsiella pneumoniae). cf., 02/03/2022, 9:59am urine culture (ESBL Klebsiella pneumoniae). cf., 06/25/2022, 11:35am urine culture (grimm-sensitive Proteus mirabilis). cf., 11/18/2022, 3:00pm urine culture (ESBL Klebsiella pneumoniae). cf., 01/27/2023, 1:16pm urine culture (ESBL Klebsiella pneumoniae). cf., 02/09/2023, 5:25pm urine culture (ESBL Klebsiella pneumoniae). cf., 03/01/2023, 3:20pm urine culture (ESBL Klebsiella pneumoniae). cf., 03/16/2023, 12:05am urine culture (VRE faecium; Shea albicans/dubliniensis). cf., 04/02/2023, 3:00pm urine culture (ertapenem-sensitive, meropenem- sensitive, gentamicin-sensitive, zosyn-sensitive Klebsiella aerogenes). cf., 07/13/2023, 4:47pm urine culture (Lactobacillus). cf., 12/08/2023, 2:46pm urine culture (grimm-sensitive Proteus mirabilis). cf., 12/09/2023, time ? urine culture (grimm-sensitive Proteus mirabilis). cf., 01/31/2024, 2:02pm urine culture (ESBL Klebsiella pneumoniae). cf., 04/24/2024, time ? urine culture (ESBL Klebsiella pneumoniae). cf., 06/07/2024, 3:26pm urine culture (levofloxacin-resistant, ciprofloxacin- resistant, nitrofurantoin-intermediate Klebsiella pneumoniae). cf., 07/19/2024, 1:27pm urine culture (levofloxacin-resistant, ciprofloxacin- resistant, nitrofurantoin-intermediate Klebsiella pneumoniae). cf., 10/04/2024, 1:54pm urine culture (levofloxacin-resistant, ciprofloxacin- resistant, nitrofurantoin-intermediate Klebsiella pneumoniae). Patient present with acute onset of visual hallucinations for the past 24 hours at home. Patient denies antecedent/coincident fevers, chills, diaphoresis, cough, wheeze, sore throat, hemoptysis, chest pains, palpitations, pleurisy, shortness of breath, dyspnea on exertion, nausea, vomiting, diarrhea, abdominal pain, pelvic pain, flank pain, hematemesis, hematochezia, melena, hematuria, dysuria, frequency, urgency, headaches, dizziness, lightheadedness, visual changes, hearing changes, weakness, falls, syncope, trauma, travel history, sick contacts, or food/drug ingestions novel or new. All other review of systems are reported as negative by the patient on admission date 12/15/2024. In [facility] ER bed #A11, patient was afebrile @ 36.5 degrees Celsius, HR 69, RR 24, O2 sat 95% on room air, and BP 185/99 (12/15/2024, 2:00pm). Exam was noted for an elderly female who appeared wide awake and alert, and who was not confused, lethargic, or obtunded. Patient spoke in complete, fluent, and articulate sentences without pause, interruption, cough, or wheeze. Labs in [facility] ER bed #A11 included: U/A (12/15/2024, 2:03pm): clear yellow, nitrite+, LE 2+, WBC 6-10, RBC 0-2, bacteria 4+, epithelial cells 0-2 urine culture (12/15/2024, 2:03pm): levofloxacin-resistant, ciprofloxacin- resistant, nitrofurantoin-intermediate Klebsiella pneumoniae WBC 9.38, N76 L15 M6 E1 B1, Hb 13.6, MCV 98.8, MCHC 32.3, platelet 243 (12/15/2024, 12:25pm). VBG 7.37 / 59 / 33 / 34 / O2 sat < 60% (12/15/2024, 12:25pm). Na 140, K 4.6, BUN 19, creatinine 1.16, glucose 113, Ca 9.4, Mg 2.3, AST 14, ALT 10, ALK PHOS 78, TBili 0.6 (12/15/2024, 12:25pm). NH3 20 umol/L (12/15/2024, 12:25pm). TSH 2.552 uIU/mL (12/15/2024). Additional testing in [facility] ER bed #A11 included: Portable CXR (12/15/2024, 12:07pm): 1. Cardiomegaly with mild pulmonary vascular congestion. 2. LLL atelectasis. 3. No infiltrate, effusion, or pneumothorax. (by my review). CT brain without IV contrast (12/15/2024, 12:07pm): 1. No acute bleed, mass, or midline shift. Patient was subsequently admitted to the inpatient hospitalist service @ [facility] on 12/15/2024 with the following diagnoses: 1. Acute metabolic encephalopathy due to [id number] UTI, most probably due to habitual dependence on diapers/briefs to collect stool and urine at home on a daily basis. 2. Acute dehydration with BUN:creatinine ratio approaching, but not quite reaching the absolute cut-off of > 20:1 (cf., BUN 19, creatinine 1.16, 12/15/2024, 12:25pm). To address #1, patient received ceftriaxone 2g IV x 1 dose (12/15/2024, 3:22pm) in [facility] ER bed #A11. 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 In the interim, I will check vitals, genito-urinary exam, WBC w/diff, and urine culture (12/15/2024, 2:03pm) in the 12/16/2024 am. To address #2, patient received 0.5 liter of 0.9% NS @ 999 mL/hr (12/15/2024, 12:45pm), followed by 0.5 liter of 0.9% NS @ 999 mL/hr (12/15/2024, 2:01pm) in [facility] ER bed #A11. Patient was subsequently started on a regular diet PO ad libitum on 12/15/2024, 2:31pm. I will check repeat BUN:creatinine ratio in the 12/16/2024 am. Of note, etiology of acute dehydration is due to increased insensible fluid losses in higher than normal urine flow(s), which in turn, are due to [id number] UTI. Discharge Exam Constitutional General: Comfortable, cooperative, coherent. Wide awake and alert. Not confused, lethargic, or obtunded. Patient speaks in complete, fluent, and articulate sentences without pause, interruption, cough, or wheeze. HEENT: Normocephalic, atraumatic. Extra-ocular muscles intact. Pupils equally round and reactive to light. No nystagmus, gaze paresis, anisocoria, miosis, mydriasis, hyphema, chemosis, scleral injection, conjunctivitis, or pterygium. No otorrhea or rhinorrhea. No pharyngeal discharge or exudate. Neck: Supple, no stridor or bruit. Jugular venous pressure is estimated to be 3 cm above the sternal angle of Germán, which is, by definition, 5 cm above the level of the right atrium. Hence, jugular venous pressure of 8 cm is not elevated on 12/17/2024. Lymphatics: No anterior/posterior cervical, infraclavicular, supraclavicular, axillary, epitrochlear, or inguinal adenopathy. Chest: Symmetric rise and fall with respirations. Non-tender to palpation. Lungs: Clear to auscultation and percussion. No audible expiratory wheeze, egophony, pectoriloquy, increase in tactile fremitus, or flatness/dullness to percussion at the bases. Heart: Regular rate and rhythm. S1 and S2 noted. No S3 or S4 summation gallop. No tripartite friction rub. Grade II/ early systolic murmur at left lower sternal border without radiation to the carotids, axilla, or back, and which remains invariant in regards to the respiratory cycle. Abdomen: Soft, non-tender, non-distended. No rebound, guarding, Taylor's sign, or organomegaly. Bowel sounds auscultated in all 4 quadrants. Extremities: No clubbing, cyanosis, or edema. 2+ pedal pulses bilaterally. Skin: No decubitus ulcer, exanthem, or enanthem. Urology: No rosario catheter. No purewick. No urethral discharge. Neurology: Alert and oriented in regards to person, place, time, and situation. DTR+. 5/5 motor strength in all 4 extremities, both proximally and distally. Psychiatry: No flat affect. No monotone voice. Smiles appropriately. Discharge Plan Discharge Items Patient Disposition: Home - Self-Care Reason For Visit: ACUTE METABOLIC ENCEPHALOPATHY Discharge Diagnosis: 1. Acute metabolic encephalopathy RESOLVED. 2. Acute recurrent ciprofloxacin-resistant, levofloxacin-resistant, nitrofurantoin-intermediate, otherwise rgimm-sensitive Klebsiella pneumoniae UTI #4. Condition on Discharge: Fair Activity: Resume your previous activity Lifting: Gradually increase as tolerated Bathing: No limitations Exercise/Sports: Gradually increase as tolerated Weightbearing: Full weightbearing Non-emergency contact: Primary Care Provider Call non-emergency contact if: you have any medication questions Follow-up/Referrals: Kimber Prater, [Primary Care Provider] - Diet: Heart Healthy Addtl Attending Provider Instructions: See your PCP Dr. Kimber Prater within 5-7 days of hospital discharge. Pending Studies at Discharge: No Stand-Alone Forms: [facility] [place], Smoking Cessation Medications and DC Order Prescriptions: Continued PreserVision AREDS [id number] capsule 1 cap PO BID Patient Comments: 12/15- otc unable to verify ropinirole 0.25 mg tablet 0.25 mg PO HS Qty: 90 1RF Patient Comments: last filled 09/28 90 day supply metoprolol succinate 25 mg tablet extended release 24 hr 25 mg PO QAM Qty: 90 2RF Patient Comments: 12/15- last filled 08/24 90 day supply metoclopramide HCl [Reglan] 5 mg tablet 5 mg PO QID Qty: 120 1RF Patient Comments: last filled 09/22 30 day supply buspirone 5 mg tablet 5 mg PO BID Qty: 180 2RF ferrous sulfate [Iron (ferrous sulfate)] 325 mg (65 mg iron) tablet 325 mg PO QAM Qty: 90 2RF omeprazole 40 mg capsule,delayed release(DR/EC) 40 mg PO QAM Qty: 90 3RF Patient Comments: 12/15- last filled 07/04 90 day supply pravastatin 40 mg tablet 40 mg PO QAM Qty: 90 3RF Patient Comments: last filled 08/24 90 day supply (DME) Manual Wheelchair Device See Rx Instructions .Route Qty: 1 0RF Rx Instructions: MANUAL WC W/ SEAT AND HAND BRAKES amiodarone 200 mg tablet 200 mg PO QAM Qty: 90 3RF duloxetine 30 mg capsule,delayed release(DR/EC) 30 mg PO QPM Qty: 90 4RF duloxetine 60 mg capsule,delayed release(DR/EC) 60 mg PO QAM Qty: 90 1RF Patient Comments: 12/15-last filled 08/27 90 day supply Eliquis 2.5 mg tablet 2.5 mg PO BID Qty: 60 11RF famotidine 20 mg tablet 20 mg PO HS Qty: 90 1RF magnesium oxide 400 mg (241.3 mg magnesium) tablet 400 mg PO BID Qty: 180 3RF Patient Comments: last filled 09/12 90 day supply nystatin 100,000 unit/gram cream 1 applic topical QID PRN (Reason: rash) Qty: 30 5RF nystatin 100,000 unit/gram powder 1 applic topical QID PRN (Reason: rash) Qty: 60 4RF cholecalciferol (vitamin D3) 25 mcg (1,000 unit) capsule 25 mcg PO DAILY Patient Comments: 12/15- otc unable to verify acetaminophen [Tylenol Extra Strength] 500 mg tablet 1,000 mg PO Q8H PRN (Reason: Pain) Patient Comments: 12/15- otc unable to verify Prevagen 1 tab PO DAILY Patient Comments: 12/15- otc unable to verify Discharge Orders: Discharge Order (Routine); Ordered 12/17/24 Ordered By: Srinivas Patel Admission Data Admit Date/Time: 12/15/24 15:11 Attending Provider: Srinivas Patel Admit Provider: Srinivas Patel Primary Care Provider: Kimber Prater Other Providers: Srinivas Patel Hospital Stay Data Consultations 12/15/24 14:58 ED Decision to Admit Stat Diagnostic Imagining Performed 12/15/24 12:07 CT head/brain wo con Stat Pending Results Patient Have Any Pending Studies at Discharge: No Discharge Instructions Given to Patient (Per Discharging Provider) See your PCP Dr. Kimber Prater within 5-7 days of hospital discharge. Total Time Total Time Spent Total Time Spent (In Minutes): 35 minutes. Of this time period, 19 minutes were spent in coordinating patient's discharge. Coding Level of Care Code 02096 INP/OBS DISCH >30 MIN Diagnoses Metabolic encephalopathy G93.41 Acute UTI N39.0 Acute dehydration E86.0
== END 2024-12-17 13:47 | disposition home or self-care (01) | DRG 689 ==
LOC: ED 11:50 → INTOOBSV 15:11 → 3E 15:11